=== PATIENT | female | born 1975 | race Caucasian/White ===

== ENCOUNTER 2024-10-18 09:32 | Emergency (ER) | payer OTHER, SELFPAY ==
--- NOTE | ~2024-10-18 | XR_ITS ---
Clinical Indication: Cough PA and lateral views of the chest: Comparison: None Findings: The lungs are clear, without evidence of focal consolidation or pleural effusion. Cardiome diastinal silhouette is within normal limits. Calcified left suprahilar lymph node present. Bones and soft tissues are unremarkable. Impression: No acute abnormality. Reviewed, dictated and finalized at [facility]. ORATE LEGAL ASSISTANT Impression: No acute abnormality.
[2024-10-18 10:19] VITALS: BP 135/76; PULSE 93; RESP 20; TEMP 36; O2SAT 100
--- NOTE | 2024-10-18 11:16 | ED.GENADULT ---
HPI - General Adult General Chief complaint: Upper Respiratory Infection Stated complaint: Cough/fever Source: patient Mode of arrival: ambulatory Limitations: no limitations History of Present Illness HPI narrative: Patient presents for evaluation of sick symptoms. She developed a fever one week ago. A cough developed shortly thereafter, which worsened two days ago. She reports pleuritic chest pain, sore throat and SOB. No nausea, vomiting, diarrhea. Her fiance recently was sick. She quit smoking two weeks ago. She wears an Apple watch and states that she has noticed at times her heart rate is in the 180s. She was recently diagnosed with Graves disease and was started on atenolol and methimazole. Related Data Home Medications ?Medication ?Instructions ?Recorded ?Confirmed ?Last Taken ?Type atenolol 25 mg tablet mg 10/18/24 Unknown History methimazole 10 mg tablet mg 10/18/24 Unknown History sertraline 100 mg tablet mg 10/18/24 Unknown History Allergies Allergy/AdvReac Type Severity Reaction Status Date / Time shellfish derived Allergy Severe Anaphylaxis Verified 10/18/24 10:54 Penicillins Allergy Mild Rash Verified 10/18/24 10:54 Review of Systems Review of Systems: CONSTITUTIONAL:Reports intermittent fever. Denies chills, or sweats. EYES: Denies visual changes, redness, or discharge. ENT: Denies rhinorrhea, congestion, sore throat, or otalgia. CARDIOVASCULAR: Reports pleuritic chest pain. Denies chest pain otherwise. Reports intermittent tachycardia. Denies palpitations or edema. RESPIRATORY: Reports cough and SOB GASTROINTESTINAL: Denies abdominal pain, nausea, vomiting, or diarrhea. GENITOURINARY: Denies dysuria or hematuria. SKIN: Denies rash or itching. MUSCULOSKELETAL: Denies back pain, joint pain, or myalgia. NEUROLOGIC: Denies headache, numbness, dizziness, or weakness. PSYCHIATRIC: Denies anxiety or depression. [facility] Past Medical History Medical History Graves disease Surgical History Surgical History No pertinent past surgical history Family History Family History Mother Family history of rheumatoid arthritis Family history of malignant neoplasm of breast in first degree relative Father Malignant neoplasm of prostate Family history of coronary artery disease Other Family history of arthritis Family history of cardiovascular disease Hypertension Social History Social History Smoking status: Former smoker Tobacco type: cigarettes Alcohol intake: current Additional living arrangements comments: lives with fiance Gender identity (if verbalized by the patient): Female Sexual Orientation (if Verbalized by the Patient): Straight or Heterosexual Spiritual care concerns: No Exam Narrative: GENERAL: Well-appearing, well-nourished, and in no acute distress. HEAD: Normocephalic, atraumatic. EYES: PERRLA and EOMI. ENT: Nares clear, no rhinorrhea or epistaxis. Mucous membranes moist. Oropharynx without tonsillar hypertrophy exudate or other lesions. Bilateral TMs pearly means nonbulging NECK: Supple. No adenopathy or masses. No carotid bruits or JVD CHEST: Cough present on exam. Clear to auscultation. No respiratory distress. No wheezes rales or rhonchi HEART: Regular rate and rhythm. No murmur heard. Normal peripheral pulses. ABDOMEN: Soft, nontender, nondistended, normal active bowel sounds. EXTREMITIES: Normal range of motion. No edema. SKIN: Warm, dry, no rash. NEURO: No focal deficits. Alert and oriented x3. PSYCH: Normal mood and affect. Course Course Emergency Course: This is a 48-year-old female who presented for evaluation of sick symptoms. Influenza and COVID were negative. Declined strep test. Chest x-ray normal. Exam is consistent with viral URI. Recommend OTC dextromethorphan. She is not wheezing to necessitate steroids. I am also concerned that this may provoke her heart rate to increase. She showed me that her phone notified that her heart rate yesterday was in the 180's and she was in a fib. Her heart rate today is normal and is regular. I did advise that she call her PCP tomorrow to inform them of heart rate and rhythm. She should go to the ER if her heart rate is elevated or she goes into a fib. She is agreeable with plan of care. Level of Care: Express Care Visit Vital Signs Vital signs: Vital Signs Temperature 36.0 C L 10/18/24 10:19 Pulse Rate 93 10/18/24 10:19 Respiratory Rate 20 10/18/24 10:19 Blood Pressure 135/76 10/18/24 10:19 Pulse Oximetry 100 10/18/24 10:19 Oxygen Delivery Room Air 10/18/24 10:19 Temperature 36.0 C L 10/18/24 10:19 Pulse Rate 93 10/18/24 10:19 Respiratory Rate 20 10/18/24 10:19 Blood Pressure 135/76 10/18/24 10:19 Pulse Oximetry 100 10/18/24 10:19 Oxygen Delivery Room Air 10/18/24 10:19 Medical Decision Making Vital Signs Vital Signs: Vital Signs Temperature 36.0 C L 10/18/24 10:19 Pulse Rate 93 10/18/24 10:19 Respiratory Rate 20 10/18/24 10:19 Blood Pressure 135/76 10/18/24 10:19 Pulse Oximetry 100 10/18/24 10:19 Oxygen Delivery Room Air 10/18/24 10:19 Temperature 36.0 C L 10/18/24 10:19 Pulse Rate 93 10/18/24 10:19 Respiratory Rate 20 10/18/24 10:19 Blood Pressure 135/76 10/18/24 10:19 Pulse Oximetry 100 10/18/24 10:19 Oxygen Delivery Room Air 10/18/24 10:19 Lab Data Labs: Lab Results 10/18/24 Range/Units 11:46 POC Influenza A Ag Negative (Negative) POC Influenza B Ag Negative (Negative) POC SARS CoV-2 Ag Negative (Negative) Imaging Data Radiologist's impression: Clinical Indication: Cough PA and lateral views of the chest: Comparison: None Findings: The lungs are clear, without evidence of focal consolidation or pleural effusion. Cardiomediastinal silhouette is within normal limits. Calcified left suprahilar lymph node present. Bones and soft tissues are unremarkable. Impression: No acute abnormality. Discharge Plan Discharge Clinical Impression: Upper respiratory infection, viral Patient Disposition: Home, Self-Care Condition: Stable Instructions: Antibiotic Form, Upper Respiratory Infection (ED) Additional Instructions: PLEASE SPEAK WITH YOUR PRIMARY CARE PROVIDER TOMORROW REGARDING THE ELEVATION OF YOUR HEART RATE AND NOTIFICATION THAT YOU HAVE BEEN IN A-FIB PLEASE DO NOT MISS ANY DOSES OF ATENOLOL IF YOUR HEART RATE IS ABOVE 125 BEATS PER MINUTE OR YOUR GOING INTO ATRIAL FIBRILLATION, PLEASE GO TO THE EMERGENCY DEPARTMENT. DELSYM (DEXTROMETHORPHAN) SHOULD HELP WITH YOUR COUGH PLEASE DO NOT SMOKE Patient Language: South African Prescriptions: No Action atenolol 25 mg tablet sertraline 100 mg tablet methimazole 10 mg tablet Follow-up/Referrals: Anne,VAL Reid [Primary Care Provider] - Time of Disposition: 11:48
[2024-10-18 11:47] LABS: EDCOVIDSCREEN Negative (Negative); EDINFLUASCREEN Negative (Negative); EDINFLUBSCREEN Negative (Negative)
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
--- OUTSIDE RECORDS SUMMARY | 2024-10-22 20:33 | XMS_ITS | Encounter Summary ---
Author Organization [facility] Address [address] [place] [address]. [place], [place] [id number] [place] [address] Care Team Providers Care Tape Edge Machine Operator Name Role Phone Josefa Rodríguez PA-C Primary Care Provider [phone] Encounter Details Date Type Department Care Team (Late st Contact Info) Description 01/08/2024 Miyaobabei Message Enc [facility] Family & Internal Medicine [address] [address] [facility] medication/follow up appointment Social History Tobacco Use Types Packs/Day Years Used Date Smoking Tobacco: Every Day Cigarettes 0.3 30 Started: 1994 Passive Smoke Exposure: Current Smokeless Tobacco: Never Comments:trying to cut back Alcohol Use Standard [...] Sex Assigned at Female 12/15/2018 11:48 AM LUMBER BUYER Legal Sex Female 8:12 PM CDT Gender Identity Female 12/15/2018 11:48 AM LUMBER BUYER Sexual Orientation Straight 12/15/2018 11 :21 AM LUMBER BUYER 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 Not on file Not on file documented as of this encounter Plan of Treatment Not on file documented as of this encounter Visit Diagnoses Not on filedocumented in this encounter Additional Health Concerns Assessment Noted Time PHQ-9 Depression Total Score: 15 023 10:20 AM LUMBER BUYER documented as of this encounter Care Teams Tape Edge Machine Operator Relationship Specialty Start Date End Date Josefa Rodríguez PA-C [address] [place] [address] PCP - General PHYSICIAN SPORTS DIRECTOR 08/12/23 documented as of this encounter
--- OUTSIDE RECORDS SUMMARY | 2024-10-22 20:33 | XMS_ITS | Clinical Summary ---
Author Organization [facility] Address [facility] [place] [address] [place] [address] Care Team Providers Care Cold Strip Roller Name Role Phone Josefa Rodríguez PA-C Primary Care Provider [phone] Allergies Active Allergy Reactions Criticality Noted Date Comments Penicillins Anaphylaxis High 10/20/2012 Can take Amoxicillin Shellfish Allergy Vomiting 08/27/1982 Medications acidiphilus probiotic tablet Take 2 tablets by mouth daily. 7 Active multi vitamin/mineral s tablet Take 1 tablet by mouth 2 (two) times daily. Active MAGNESIUM ASPARTATE OR Take 400 mg by mouth daily. Active ACYCLOVIR 400 MG tabletIndicatio ns:Herpes simplex TAKE 1 TABLET BY MOUTH DAILY 150 tablet 2 Active HYDROcodone-angel taminophen (NORCO) 5-325 MG tabletIndicatio ns:Acute Pain < 7 Day Supply Take 1 tablet by mouth every 4 (four) hours as needed for Pain. Indications: Acute Pain < 7 Day Supply 20 tablet 4 Active Additional Information Patient not taking.Reported on 06/18/2024 tiZANidine (ZANAFLEX) 4 MG tabletIndicatio ns:Acute right-sided low back pain with right-sided sciatica Take 1 tablet (4 mg total) by mouth every 8 (eight) hours as needed. 30 tablet 1 4 Active HYDROcodone-angel taminophen (NORCO) 5-325 MG tabletIndicatio ns:Acute Pain < 7 Day Supply Take 1 tablet by mouth 2 (two) times daily as needed for Pain. Indications: Acute Pain < 7 Day Supply 14 tablet 4 Active Additional Information Patient not taking.Reported on 06/18/2024 gabapentin (NEURONTIN) 100 MG capsuleIndicati ons:Acute right-sided low back pain with right-sided sciatica Take 1 capsule nightly for 3 to 5 days until tolerated and then increase to twice daily 60 capsule 1 4 Active Additional Information Patient not taking.Reported on 06/18/2024 diclofenac EC (VOLTAREN) 75 MG tabletIndicatio ns:Acute right-sided low back pain with right-sided sciatica TAKE 1 TABLET (75 MG TOTAL) BY MOUTH TWICE A DAY WITH FOOD 60 tablet 1 4 Active sertraline (ZOLOFT) 100 MG tabletIndicatio ns:Anxiety and depression TAKE 1 AND 1/2 TABLETS BY MOUTH DAILY 45 tablet 1 4 Active Active Problems Problem Noted Date Diagnosed Date Palpitations 08/22/2022 Hyperthyroidism 08/27/2020 Anxiety and depression 07/30/2018 Adjustment disorder with anxiety 02/04/2015 Encounters Date Type Department Care Team Description 10/18/2024 Scan Tricycle INFO SRVCS Scanned, [facility] Image (SCAN) 07/23/2024 Telephone [facility] Family & Internal Medicine [facility] [address] [place] [address] Josefa Rodríguez, PAMarceloC Information from Last 3 Months Immunizations Name Administration Dates Next Due Fluzone 6 Months+ Quad (0.5 mL Prefilled Syringe ) 09/04/2021 Td 07/02/2008 Tdap (Generic) 04/29/2012 Family History Medical History Relation Comments Anxiety Father Cancer Father prostate Heart Father Cancer Mother breast Relation Status Comments Father Alive Mother Social History Tobacco Use Types Packs/Day Years Used Date Smoking Tobacco: Every Day Cigarettes 0.3 30 Started: 1994 Passive Smoke Exposure: Current Smokeless Tobacco: Never Tobacco Cessation:Ready to Q uit: Not Asked; Counseling Given: Not Answered Comments:trying to cut back Alcohol Use Standard [...] Date Recorded Patient Health Questionnaire-2 Score 0 06/18/2024 Education Answer Date Recorded What is the highest level of school you have completed or the highest degree you have received? Some college, no degree 12/15/2018 Comments No Sex and Gender Information Value Date Recorded Sex Assigned at Female 12/15/2018 11:48 AM CHURCH ORGANIST Legal Sex Female 8:12 PM CDT Gender Identity Female 12/15/2018 11:48 AM CHURCH ORGANIST Sexual Orientation Straight 12/15/2018 11 :21 AM CHURCH ORGANIST Occupation Industry Job Start Date Job End Date [employer] Not on file Not on file Not on file Last Filed Vital Signs Vital Sign Reading Time Taken Comments Blood Pressure 154/82 06/18/2024 10:15 AM CDT Pulse 101 06/18/2024 10:15 AM CDT Temperature 36.3 ??C (97.3 ??F) 06/18/2024 10:15 AM C DT Respiratory Rate 16 06/18/2024 10:15 AM CDT Oxygen Saturation 99% 06/18/2024 10:15 AM CDT Inhaled Oxygen Concentration - - Weight 64 kg (141 lb) 06/18/2024 10:15 AM CDT Height 167.6 cm (5' 6 ) 06/18/2024 10:15 AM CDT Body Mass Index 22.76 06/18/2024 10:15 AM CDT Plan of Treatment Health Maintenance Due Date Last Done Comments Cervical Cancer Screening Pa p Smear (Age 30 to 64) Every 3 Years 1977 Hepatitis C 1995 Hepatitis B Vaccines (1 of 3 - 19+ 3-dose series) 1996 Cervical Cancer Screening Pa p with HPV Testing (Age 30 to 64) Every 5 Years 2007 Cervical Cancer Screening with HPV 2007 Colorectal Cancer Screening Colonoscopy (10 Years) 07/18/2014 07/18/2004 DTaP, Tdap and Td Vaccines ( 2 - Td or Tdap) 04/29/2022 04/29/2012, 07/02/2008 COVID-19 Vaccine (2 - 2023-2 5 season) 2024 04/06/2021 Influenza Adult (#1) 2024 09/04/2021 Annual Physical 08/28/2024 08/28/2023, 09/04/2021 Mammogram Screening 08/28/2024 08/28/2022 Pneumococcal Vaccine: Pediatrics (0 to 5 Years) and At-Risk Patients (6 to 64 Years) (1 of 2 - PCV) 12/07/2024 Postponed from (Per Provider Recommendation) Meningococcal Vaccine Aged Out No josie jermaine eligible based on patient's age to complete this topic RSV Immunizations Under 20 Months Aged Out No longer eligible b ased on patient's age to complete this topic Procedures Procedure Name Priority Date/Time Associated Diagnosis Comments IMAGE GENERIC 10/18/2024 MG SCREENING W MICAH SOHAM DIGI Routine 08/28/2022 2:47 PM CDT Breast cancer screening by mammogram COLONOSCOPY Routine 07/18/2004 12:00 AM CDT from Last 3 Months or Most Recently Relevant to Health Maintenance Results * IMAGE GENERIC (10/18/2024) Anatomical Region Laterality Modality Other 10/18/2024 us Doc [facility] Scanned SCANNING Final Resu lt * MG SCREENING W MICAH SOHAM DIGI (08/28/2022 2:47 PM CDT) Anatomical Region Laterality Modality Breast Bilateral Mammography 08/28/2022 2:33 PM CDT Impressions 08/28/2022 2:40 PM CDT IMPRESSION: 1. No mammographic evidence of malignancy. 2. BI-RADS Category 1 - negative. MQSA BI-RADS Categories: Category 0 - needs additional imaging evaluation. Category 1 - negative. Category 2 - benign findings. Category 3 - probably benign findings, but short interval follow-up ?is recommended. Category 4 - suspicious abnormality and biopsy should be considered ?though the lesion may well be benign. Category 5 - highly suggestive of malignancy and appropriate action ?should be taken. ?? Category 6 - known biopsy-proven malignancy A) ??A negative report should not delay a biopsy if a dominant or ?clinically suspicious mass is present. B) ??Adenosis and dense breasts may obscure an underlying neoplasm. C) ??Study interpreted with computer aided detection. Ordered By: TRENTON TREIVZO Interpreted By: Kenneth Bruner, 08/28/2022 2:33 PM Narrative 08/28/2022 2:40 PM CDT IMAGING STUDIES: Bilateral screening mammograms with computer-aided detection with 2-D and 3-D imaging. Tomosynthesis. DATE: 08/28/2022 2:33 PM HISTORY: Screening ?? . ??Mother diagnosed with breast carcinoma at undisclosed age. COMPARISON: ??Baseline exam TISSUE TYPE: There are scattered areas of fibroglandular density. FINDINGS: 1. ??Bilateral screening mammograms with computer detection with ??2-D and 3-D imaging. Tomosynthesis. ??Mild to moderate scattered ??fibroglandular tissue pattern is present. 2. ??No malignant microcalfcifications, dominant masses, or architectural distortion. 3. No skin thickening or nipple retraction. ??Axillary regions are within normal limits. us Trenton Trevizo PA MAMMO Final Result * Colonoscopy (07/18/2004 12:00 AM CDT) 07/18/2004 07/18/2004 Narrative [facility] TO EPIC CONVERSION - 07/18/2004 12:00 AM CDT Documented hx of procedure Procedure Note Sai Almeida MD - 09/07/2018 Documented hx of procedure us Sai Bustillos Md, MD GI PROCEDURE ORDERABLES Final Result [facility] TO EPIC CONVERSION from Last 3 Months or Most Recently Relevant to Health Maintenance Insurance [facility] Care Teams Cold Strip Roller Relationship Specialty Start Date End Date Josefa Rodríguez PA-C [address] [place] [address] PCP - General PHYSICIAN EVP [place] 08/12/23
--- OUTSIDE RECORDS SUMMARY | 2024-10-22 20:33 | XMS_ITS | Encounter Summary ---
Author Organization [facility] Address [address] [place] [address]. [place], [place] [id number] [place] [address] Care Team Providers Care Key Account Manager Name Role Phone Josefa Rodríguez PA-C Primary Care Provider Encounter Details Date Type Department Care Team (Latest Contact Info) Description 06/18/2024 Travel Social History Tobacco Use Types Packs/Day Years [...] Sex Assigned at Female 12/15/2018 11:48 AM COUNSELOR DORMITORY Legal Sex Female 8:12 PM CDT Gender Identity Female 12/15/2018 11:48 AM COUNSELOR DORMITORY Sexual Orientation Straight 12/15/2018 11 :21 AM COUNSELOR DORMITORY Occupation Industry Job Start Date Job End Date [employer] Not on file Not on file Not on file documented as of this encounter Plan of Treatment Not on file documented as of this encounter Visit Diagnoses Not on filedocumented in this encounter Additional Health Concerns Assessment Noted Time PHQ-9 Depression Total Score: 15 11/26/ 023 10:20 AM COUNSELOR DORMITORY documented as of this encounter Care Teams Key Account Manager Relationship Specialty Start Date End Date Josefa Rodríguez PA-C [address] [place] [address] PCP - General PHYSICIAN BAND PRESSER 08/12/23 documented as of this encounter
--- OUTSIDE RECORDS SUMMARY | 2024-10-22 20:33 | XMS_ITS | Encounter Summary ---
Author Organization [facility] Address [address] [place] [address]. [place], [place] [id number] [place] [address] Care Team Providers Care Starch Factory Laborer Name Role Phone Josefa Rodríguez PA-C Primary Care Provider [phone] Encounter Details Date Type Department Care Team (Late st Contact Info) Description 12/03/2023 [email or web address] Message Enc [facility] Family & Internal Medicine [address] [address] [facility] Provider medication Social History Tobacco Use Types Packs/Day Years [...] Sex Assigned at Female 12/15/2018 11:48 AM SCHOOL PLANT CONSULTANT Legal Sex Female 8:12 PM CDT Gender Identity Female 12/15/2018 11:48 AM SCHOOL PLANT CONSULTANT Sexual Orientation Straight 12/15/2018 11 :21 AM SCHOOL PLANT CONSULTANT 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 Not on file Not on file documented as of this encounter Plan of Treatment Not on file documented as of this encounter Visit Diagnoses Not on filedocumented in this encounter Additional Health Concerns Assessment Noted Time PHQ-9 Depression Total Score: 15 11/26/ 023 10:20 AM SCHOOL PLANT CONSULTANT documented as of this encounter Care Teams Starch Factory Laborer Relationship Specialty Start Date End Date Josefa Rodríguez PA-C [address] [place] [address] PCP - General PHYSICIAN FINANCIAL SALES CONSULTANT 08/12/23 documented as of this encounter
--- OUTSIDE RECORDS SUMMARY | 2024-10-22 20:33 | XMS_ITS | Encounter Summary ---
Author Organization [facility] Address [address] [place] [address]. [place], [place] [id number] [place] [address] Care Team Providers Care Gaming Cage Cashier Name Role Phone Josefa Rodríguez PA-C Primary Care Provider [phone] Reason for Visit * Reason Onset Date Comments Information 07/23/2024 Encounter Details Date Type Department Care Team (Late st Contact Info) Description 07/23/2024 Telephone [facility] Family & Internal Medicine [facility] [id number] [place] [phone] Josefa Rodríguez PA-C [id number] [address] Information Social History Tobacco Use Types Packs/Day Years [...] Sex Assigned at Female 12/15/2018 11:48 AM CATALOGUE MAKER Legal Sex Female 8:12 PM CDT Gender Identity Female 12/15/2018 11:48 AM CATALOGUE MAKER Sexual Orientation Straight 12/15/2018 11 :21 AM CATALOGUE MAKER 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 Not on file Not on file documented as of this encounter Progress Notes * Felicia Badillo RN - 07/23/2024 3:02 PM CDT Attempted to call the pt to inform her that Josefa recommends taht the pt be seen in ER. The pt's mailbox was full was unable to leave VM. * Josefa Rodríguez PA-C - 07/23/2024 1:02 PM CDT I absolutely recommend the emergency room. I am worried she may have an electrolyte imbalance, thyroid issue that could result in SVT, atrial fibrillation, or other concerning cardiac conditions thatneed treatment emergently. Thank you! * Alicia Torre - 07/23/2024 8:40 AM CDT Frances calling this morning states she was at work this morning went to lunch room to make some pizza. Heart rate jumped to 153, she went outside to sit and calling office asking what to do. Frances reports some shortness of breath, dizziness after talking she said heart rate is going down to 110. Frances also reports she does wear a fit bit and states in the middle of the night she has had recordingsof heart rate 176. Informed her that she should go to ER as we had no openings, explained that ER can run test at the time of flare up and can find out what is going on. Frances understood felt more comfortable after hearing this. Told her I would let Josefa know her concerns. documented in this encounter Plan of Treatment Not on file documented as of this encounter Visit Diagnoses Not on filedocumented in this encounter Additional Health Concerns Assessment Noted Time PHQ-9 Depression Total Score: 15 11/26/ 023 10:20 AM CATALOGUE MAKER documented as of this encounter Care Teams Gaming Cage Cashier Relationship Specialty Start Date End Date Josefa Rodríguez PA-C [address] [place] [address] PCP - General PHYSICIAN PUBLICITY DIRECTOR 08/12/23 documented as of this encounter
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
--- OUTSIDE RECORDS SUMMARY | 2024-10-22 20:33 | XMS_ITS | Encounter Summary ---
Author Organization [facility] Address [address] [place] [address]. [place], [place] [address] [place] [address] Care Team Providers Care Assistant Director Of Security Name Role Phone Josefa Rodríguez PA-C Primary Care Provider Encounter Details Date Type Department Care Team (Latest Contact Info) Description 11/13/2023 Travel Social History Tobacco Use Types Packs/Day [...] Sex Assigned at Female 12/15/2018 11:48 AM RESIDENCY PROGRAM COORDINATOR Legal Sex Female 8:12 PM CDT Gender Identity Female 12/15/2018 11:48 AM RESIDENCY PROGRAM COORDINATOR Sexual Orientation Straight 12/15/2018 11 :21 AM RESIDENCY PROGRAM COORDINATOR Occupation Industry Job Start Date Job End Date [employer] Not on file Not on file Not on file documented as of this encounter Plan of Treatment Not on file documented as of this encounter Visit Diagnoses Not on filedocumented in this encounter Additional Health Concerns Assessment Noted Time PHQ-9 Depression Total Score: 15 11/26/ 023 10:20 AM RESIDENCY PROGRAM COORDINATOR documented as of this encounter Care Teams Assistant Director Of Security Relationship Specialty Start Date End Date Josefa Rodríguez PA-C [address] [place] [address] PCP - General PHYSICIAN BURLAP BAG SEWER 08/12/23 documented as of this encounter
--- OUTSIDE RECORDS SUMMARY | 2024-10-22 20:33 | XMS_ITS | Encounter Summary ---
Author Organization [facility] Address [address] [place] [address]. [place], [place] [address] [place] [address] Care Team Providers Care Billet Heater Operator Name Role Phone Josefa Rodríguez PA-C Primary Care Provider [phone] Encounter Details Date Type Department Care Team (Latest Contact Info) Description 06/18/2024 11:12 AM CDT - 06/18/2024 11:59 PM T Hospital Encounter [facility] [address] [place] [address] Josefa Rodríguez PA-C [address] [place] [address] Carolyn Cordero, TOMAS [address] [place] [address] Discharge Disposition: Home or Self Care (Routine Discharge) Social History Tobacco Use Types Packs/Day Years [...] Sex Assigned at Female 12/15/2018 11:48 AM SPORTS INFORMATION DIRECTOR Legal Sex Female 8:12 PM CDT Gender Identity Female 12/15/2018 11:48 AM SPORTS INFORMATION DIRECTOR Sexual Orientation Straight 12/15/2018 11 :21 AM SPORTS INFORMATION DIRECTOR 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 Not on file Not on file documented as of this encounter Medications at Time of Discharge acidiphilus probiotic tablet Take 2 tablets by mouth daily. 07/09/2017 ACYCLOVIR 400 MG tabletIndication s:Herpes simplex TAKE 1 TABLET BY MOUTH DAILY 150 tablet 01/09/2022 gabapentin (NEURONTIN) 100 MG capsuleIndicatio ns:Acute right-sided low back pain with right-sided sciatica Take 1 capsule nightly for 3 to 5 days until tolerated and then increase to twice daily 60 capsule 1 11/21/2023 HYDROcodone-acet aminophen (NORCO) 5-325 MG tabletIndication s:Acute Pain < 7 Day Supply Take 1 tablet by mouth every 4 (four) hours as needed for Pain. Indications: Acute Pain < 7 Day Supply 20 tablet 11/07/2023 HYDROcodone-acet aminophen (NORCO) 5-325 MG tabletIndication s:Acute Pain < 7 Day Supply Take 1 tablet by mouth 2 (two) times daily as needed for Pain. Indications: Acute Pain < 7 Day Supply 14 tablet 11/15/2023 MAGNESIUM ASPARTATE OR Take 400 mg by mouth daily. multi vitamin/minerals tablet Take 1 tablet by mouth 2 (two) times daily. tiZANidine (ZANAFLEX) 4 MG tabletIndication s:Acute right-sided low back pain with right-sided sciatica Take 1 tablet (4 mg total) by mouth every 8 (eight) hours as needed. 30 tablet 1 11/13/2023 diclofenac EC (VOLTAREN) 75 MG tabletIndication s:Acute right-sided low back pain with right-sided sciatica Take 1 tablet (75 mg total) by mouth 2 (two) times daily. Take with food. 60 tablet 1 11/13/2023 4 ibuprofen (MOTRIN) 800 MG tabletIndication s:Left foot pain,Acute left ankle pain Take 1 tablet (800 mg total) by mouth every 8 (eight) hours as needed for Pain. 40 tablet 06/18/2024 4 sertraline (ZOLOFT) 100 MG tabletIndication s:Anxiety and depression take 1 and 1/2 tablets by mouth daily 45 tablet 1 06/18/2024 4 documented as of this encounter Plan of Treatment Not on file documented as of this encounter Procedures Procedure Name Priority Date/Time Associated Diagnosis Comments XR FOOT LT 3V Routine 06/18/2024 11:25 AM CDT Left foot pain XR ANKLE LT M3V Routine 06/18/2024 11:25 AM CDT Acute left ankle pain documented in this encounter Results * XR ANKLE LT [...] MD, 06/18/2024 4:26 PM us Carolyn Cordero ASSEMBLER TRUCK TRAILER GENERAL IMAGING Final Resu lt * XR [...] MD, 06/18/2024 4:26 PM us Carolyn Cordero ASSEMBLER TRUCK TRAILER GENERAL IMAGING Final Resu lt documented in this encounter Visit Diagnoses Diagnosis Left foot pain Pain in limb Acute left ankle pain documented in this encounter Additional Health Concerns Assessment Noted Time PHQ-9 Depression Total Score: 15 023 10:20 AM SPORTS INFORMATION DIRECTOR documented as of this encounter Care Teams Billet Heater Operator Relationship Specialty Start Date End Date Josefa Rodríguez PA-C [address] [place] [address] PCP - General PHYSICIAN AUTOMOTIVE FINANCE MANAGER 08/12/23 documented as of this encounter
--- OUTSIDE RECORDS SUMMARY | 2024-10-22 20:33 | XMS_ITS | Encounter Summary ---
Author Organization [facility] Address [address] [place] [address]. [place], [place] [address] [place] [address] Care Team Providers Care Manager Of Internal Audit Name Role Phone Josefa Rodríguez PA-C Primary Care Provider Encounter Details Date Type Department Care Team (Late st Contact Info) Description 11/14/2023 Conzoom Message Enc [facility] Family & Internal Medicine [facility] [address] [place] [address] Josefa Rodríguez PA-C [id number] [place] [address] Medication refill or different pain medication Social History Tobacco Use Types Packs/Day [...] Sex Assigned at Female 12/15/2018 11:48 AM DIRECTOR EAST COAST SALES Legal Sex Female 8:12 PM CDT Gender Identity Female 12/15/2018 11:48 AM DIRECTOR EAST COAST SALES Sexual Orientation Straight 12/15/2018 11 :21 AM DIRECTOR EAST COAST SALES Occupation Industry Job Start Date Job End Date [facility] [employer] Not on file Not on file Not on file documented as of this encounter Progress Notes * Christy Reynaga RN - 12/12/2023 2:57 PM CST Letter sent to patient to call office. [employer]OR [employer] * Zarina Dougherty MA - 12/09/2023 1:25 PM CST 12/09/23 lmtcb on cj vm. [employer] * Zarina Dougherty MA - 12/03/2023 11:27 AM CST 12/03 lmtcb on vm. Will reach out also on my chart. [employer] * Marian Lynn RN - 11/29/2023 12:34 PM CST LMTCB [employer] * Josefa Rodríguez PA-C - 11/21/2023 2:00 PM CST I sent in gabapentin 100 mg nightly to be increased to twice daily in a few days if tolerated. Please let patient know this dose can be increased if needed. Thank you! [employer] * Marian Lynn RN - 11/21/2023 9:57 AM CST Pt would like gabapentin. Please send script [employer] * Marian Lynn RN - 11/18/2023 10:53 AM CST lmtcb [employer] * Josefa Rodríguez PA-C - 11/15/2023 9:53 AM CST I sent in a short course of the hydrocodone to be taken twice daily as needed. Please see if she would be interested in trying prednisone as this will help decrease inflammation. Gabapentin would also significantly help alleviate her pain. Please find out if she would be agreeable to either the prednisone or the gabapentin. Recommend continue to follow-up with physical therapy. If any bowel or bladder dysfunction develop recommend report to the ED. [employer] * Christy Reynaga RN - 11/15/2023 9:33 AM CST Please advise [employer] documented in this encounter Plan of Treatment Not on file documented as of this encounter Visit Diagnoses Diagnosis Acute right-sided low back pain with right-sided sciatica- Primary documented in this encounter Additional Health Concerns Assessment Noted Time PHQ-9 Depression Total Score: 15 11/26/2 023 10:20 AM DIRECTOR EAST COAST SALES documented as of this encounter Care Teams Manager Of Internal Audit Relationship Specialty Start Date End Date Josefa Rodríguez PA-C [address] [facility] [address] [place] [address] PCP - General PHYSICIAN CIVIL ENGINEERING DRAFTER 08/12/23 documented as of this encounter
--- OUTSIDE RECORDS SUMMARY | 2024-10-22 20:33 | XMS_ITS | Encounter Summary ---
Author Organization [facility] Address [address] [place] [address]. [place], [place] [id number] [place] [address] Care Team Providers Care Engineering Manager Name Role Phone Josefa Rodríguez PA-C Primary Care Provider [phone] Reason for Visit * Reason Onset Date Comments Referral 11/14/2023 Encounter Details Date Type Department Care Team (Late st Contact Info) Description 11/14/2023 Telephone [facility] [address] [place], [place] [phone] Deysi Thurston, PT [address] [place], [place] [phone] Referral Social History Tobacco Use Types Packs/Day Years [...] Sex Assigned at Female 12/15/2018 11:48 AM FOUNDRY TENDER Legal Sex Female 8:12 PM CDT Gender Identity Female 12/15/2018 11:48 AM FOUNDRY TENDER Sexual Orientation Straight 12/15/2018 11 :21 AM FOUNDRY TENDER 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 Not on file Not on file documented as of this encounter Progress Notes * Grace Bridges - 11/14/2023 9:25 AM CST We received a referral for PT but [facility] is not contacted with [facility]. Left vm with patient that we are not contracted and unable to treat her. DRY TENDER documented in this encounter Plan of Treatment Not on file documented as of this encounter Visit Diagnoses Not on filedocumented in this encounter Additional Health Concerns Assessment Noted Time PHQ-9 Depression Total Score: 15 11/26/2 023 10:20 AM FOUNDRY TENDER documented as of this encounter Care Teams Engineering Manager Relationship Specialty Start Date End Date Josefa Rodríguez PA-C [address] [facility] [address] [place] [address] PCP - General PHYSICIAN SENIOR LIVING SALES COUNSELOR 08/12/23 documented as of this encounter
--- OUTSIDE RECORDS SUMMARY | 2024-10-22 20:34 | XMS_ITS | Encounter Summary ---
Author Organization [facility] Address [address] [place] [address]. [place], [place] [id number] [place] [address] Care Team Providers Care Fleet Salesperson Name Role Phone Trenton Trevizo Primary Care Provider Reason for Visit * Reason Comments Earache Right earache. Onset - couple wk/worse lately Encounter Details Date Type Department Care Team (Late st Contact Info) Description 03/19/2023 1:40 PM CDT Office Visit [facility] Family & Internal Medicine [facility] [id number] [place] [phone] [place] [id number] [place] [address] Earache (Right earache. Onset- couple wk/worse lately) Social History Tobacco Use Types Packs/Day Years [...] Sex Assigned at Female 12/15/2018 11:48 AM SUPERVISOR BEAM DEPARTMENT Legal Sex Female 8:12 PM CDT Gender Identity Female 12/15/2018 11:48 AM SUPERVISOR BEAM DEPARTMENT Sexual Orientation Straight 12/15/2018 11 :21 AM SUPERVISOR BEAM DEPARTMENT Occupation Industry Job Start Date Job End Date [facility]ly [employer] Not on file Not on file Not on file COVID-19 Exposure Response Date Recorded In the last 10 days, have yo u been in contact with someone who was confirmed or suspected to have Coronavirus/COVID-19? No / Unsure 03/19/2023 1:21 PM CDT documented as of this encounter Last Filed Vital Signs Vital Sign Reading Time Taken Comments Blood Pressure 115/72 03/19/2023 1:29 PM CDT Pulse 79 03/19/2023 1:29 PM CDT Temperature 36.4 ??C (97.5 ??F) 03/19/2023 1:29 PM CD T Respiratory Rate 17 03/19/2023 1:29 PM CDT Oxygen Saturation 98% 03/19/2023 1:29 PM CDT Inhaled Oxygen Concentration - - Weight 69.5 kg (153 lb 3.2 oz) 03/19/2023 1:29 P M CDT Height 167.6 cm (5' 6 ) 03/19/2023 1:29 PM CDT Body Mass Index 24.73 03/19/2023 1:29 PM CDT documented in this encounter Patient Instructions * Attachments The following attachments cannot be sent through Care Everywhere. * Serous Otitis Media Discharge Instructions (Filipino) documented in this encounter Progress Notes * VAL Gil - 03/19/2023 1:40 PM CDTAddended by: TRENTON TREVIZO on: 03/19/2023 09:45 PM Modules accepted: Orders * VAL Gil - 03/19/2023 1:40 PM CDT Images from the original note were not included. _ Reason for Visit: Earache (Right earache. Onset- couple wk/worse lately) History of Present Illness: MERCEDES Maguire is a 47-year-old female here for patient or evaluation through the walk-in clinic for symptoms of upper respiratory infection to include nasal congestion, sore throat, and headache. Patient denies symptoms of visual disturbance or vomiting. Patient has noticed a fever. Patient has a not had cough with out wheezing. Patient denies shortness of breath. Patient has not had loose stools. Patient has been symptomatic off and on and building days and is notimproving with symptoms. Endocrinology referral has been initiated ROS: Review of Systems Feeling ill. Denies vision or hearing problems. Denies dysphagia, heartburn or indigestion. No dyspnea or chest pain on exertion. Positive nausea, NOabdominal pain, change in bowel habits, black or bloody stools. No urinary tract symptoms. No muscle or joint aches or pains. No foot or leg edema. Nonumbness, tingling,or weakness. No anxiety or depressive symptoms, Sleeping well. No significant ivan ght gain or loss. Positive fatigue. Medications: Outpatient Medications Marked as Taking for the 03/19/23 encounter (Office Visit) with VAL Gil Medication Sig Dispense Refill acidiphilus probiotic tablet Take 2 tablets by mouth daily. ACYCLOVIR 400 MG tablet TAKE 1 TABLET BY MOUTH DAILY 150 tablet 0 azithromycin (ZITHROMAX Z-NAVID) 250 MG tablet Take 2 tablets by mouth on day one then 1 daily for four days. 6 tablet 0 MAGNESIUM ASPARTATE OR Take 400 mg by mouth daily. multi vitamin/minerals tablet Take 1 tablet by mouth 2 (two) times daily. ondansetron (ZOFRAN) 4 MG tablet Take 1 tablet (4 mg total) by mouth every 8 (eight) hours as needed. 20 tablet 0 sertraline (ZOLOFT) 100 MG tablet TAKE 1 AND 1/2 TABLETS(150 MG) BY MOUTH DAILY 45 tablet 3 Review of patient's allergies indicates: Allergen Reactions Penicillins Anaphylaxis Can take Amoxicillin Shellfish Allergy Vomiting Past Medical History: Diagnosis Date Anxiety Depression Palpitations Past Surgical History: Procedure Laterality Date DENTAL PROCEDURE tooth extraction Social History Tobacco Use Smoking status: Every Day Packs/day: 0.25 Types: Cigarettes Start date: 1994 Passive exposure: Current Smokeless tobacco: Never Tobacco comments: trying to cut back Vaping Use Vaping Use: Never used Substance Use Topics Alcohol use: Not Currently Drug use: No Family History Problem Relation Name Age of Onset Cancer Mother breast Cancer Father prostate Heart Father Anxiety Father Family Status Relation Name Status Mother Alive Father Alive Physical Exam Constitutional: Patient is oriented to person, place, and time. Patient appears well-developed and well-nourished. HENT: Right Ear: External ear normal. Marked erythma with air fluid level Left Ear: External ear normal. Air fluid level Head: Normocephalic. Frontal sinus tenderness Nose: Nose normal. Turbinates are swollen Mouth/Throat: Oropharynx is clear and moist. Positive postnasal drainage Eyes: Pupils are equal, round, and reactive to light. Neck: No JVD present. Possible thyromegaly present neck fullness noted No nuchal rigidity Cardiovascular: Normal rate, regular rhythm, normal heart sounds and intact distal pulses. No murmur heard. Pulmonary/Chest: No respiratory distress. Patient has no wheezes. Patient has no rales. Patient exhibits no tenderness. Abdominal: Patient exhibits no distension and no mass. There is no tenderness. There is no rebound and no guarding. Musculoskeletal: Normal range of motion. Patient exhibits no edema, tenderness or deformity. Lymphadenopathy: Patient has positive cervical adenopathy. Neurological: Patient is alert and oriented to person, place, and time. Skin: No rash noted. No erythema. Psychiatric: Patient has a normal mood and affect. The behavior is normal. Thought content normal. View : No data to display. Vitals: 03/19/23 1329 Patient Position: Sitting BP Location: Left arm Cuff size: Adult Regular BP: 115/72 Pulse: 79 Body mass index is 24.73 kg/m??. Assessment and Plan Encounter Diagnose(s) ICD-10-CM ICD-9-CM SNOMED CT(R) 1. Neck fullness R22.1 784.2 ENLARGEMENT OF NECK US THYROID 2. Non-recurrent acute serous otitis media of right ear H65.01 381.01 ACUTE NON- SUPPURATIVE SEROUS OTITIS MEDIA azithromycin (ZITHROMAX Z-NAVID) 250 MG tablet ondansetron (ZOFRAN) 4 MG tablet 3. Nausea R11.0 787.02 NAUSEA ondansetron (ZOFRAN) 4 MG tablet Orders Placed This Encounter US THYROID azithromycin (ZITHROMAX Z-NAVID) 250 MG tablet ondansetron (ZOFRAN) 4 MG tablet Patient was told to push liquids and get lots of rest. Patient was told to use Tylenol for fever. Patient was told that if symptoms do not improve to utilize the emergency room, call their PCP, or follow back up with the walk-in clinic. If patient needs any additional time off not discussed and spelled out in a work release at this office visit they will need to contact the PCP or be seen in the walk in clinic. Patient should follow annual wellness exams recommended for age and sex of patient. Items to consider but not limited included yearly annual fasting labs, colonscopy or cologuard when indicated. PSA and prostate for males. Mammogram and female exam for females, Portions of this note were dictated using Movity speech recognition software. Occasional wrong wordor sound-alike substitutions may have occurred due to the inherent limitations of voice recognition software. Please read the chart carefully and recognize, using context, where the substitutions may have occurred. Trenton Trevizo PA-C evaluated and Dr. Violeta Ray reviewed and agrees with plan. documented in this encounter Plan of Treatment Not on file documented as of this encounter Visit Diagnoses Diagnosis Neck fullness- Primary Swelling, mass, or lump in head and neck Non-recurrent acute serous otitis media of right ear Nausea Nausea alone documented in this encounter Additional Health Concerns Assessment Noted Time PHQ-9 Depression Total Score: 15 11/26/ 023 10:20 AM SUPERVISOR BEAM DEPARTMENT documented as of this encounter Care Teams Fleet Salesperson Relationship Specialty [place] [address] [place] [address] PCP - General PHYSICIAN TRAILER STEERER 08/03/22 08/11/23 documented as of this encounter
--- OUTSIDE RECORDS SUMMARY | 2024-10-22 20:34 | XMS_ITS | Encounter Summary ---
Author Organization [facility] Address [address] [place] [address]. [place], [place] [address] [place] [address] Care Team Providers Care Project Controller Name Role Phone Akilah Gardner NP Primary Care Provider Mera Cesar Primary Care Provider [phone] Josefa RodríguezC Primary Care Provider [phone] Encounter Details Date Type Department Care Team (Late st Contact Info) Description 11/30/2021 upadt Message Enc [facility] Family & Internal Medicine [facility] [id number] [place] [phone] Akilah Gardner NP Social History Tobacco Use Types Packs/Day Years Used Date Smoking Tobacco: Every Day Cigarettes 0.3 30 Started: 1992 Smokeless Tobacco: Never Comments:trying to cut back Alcohol Use Standard Drinks/Week Comments Yes 0 (1 standard drink = 0.6 oz [...] occasion? Never 06/23/2020 PHQ-2 Answer Date Recorded PHQ-2 Score - If the patient scores above 3, please move on to questions 3-9 0 06/23/2020 Education Answer Date Recorded What is the highest level of school you have completed or the highest degree you have received? Some college, no degree 12/15/2018 Comments No Sex and Gender Information Value Date Recorded Sex Assigned at Female 12/15/2018 11:48 AM AIRPLANE PILOT SUPERVISOR Legal Sex Female 8:12 PM CDT Gender Identity Female 12/15/2018 11:48 AM AIRPLANE PILOT SUPERVISOR Sexual Orientation Straight 12/15/2018 11 :21 AM AIRPLANE PILOT SUPERVISOR 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 Not on file Not on file documented as of this encounter Plan of Treatment Not on file documented as of this encounter Visit Diagnoses Not on filedocumented in this encounter Additional Health Concerns Infection Onset Date Last Indicated Resolved Time COVID-19 Rule Out 09/12/2022 09/12/2022 09/12/2022 10:26 AM AIRPLANE PILOT SUPERVISOR COVID-19 Rule Out 09/12/2022 09/12/2022 09/12/2022 1:04 PM AIRPLANE PILOT SUPERVISOR COVID-19 Rule Out 09/12/2022 09/12/2022 09/13/2022 5:41 PM AIRPLANE PILOT SUPERVISOR COVID-19 Rule Out 11/26/2022 11/26/2022 11/26/2022 10:46 AM AIRPLANE PILOT SUPERVISOR Assessment Noted Time PHQ-9 Depression Total Score: 14 021 8:58 AM CDT documented as of this encounter Care Teams Project Controller Relationship Specialty Start Date End Date Akilah Gardner NP PCP - General NURSE PRACTITIONER 09/01/21 08/02/22 [place] [address] [place] [address] PCP - General PHYSICIAN NET APPLICATION SUPPORT SPECIALIST 08/03/22 08/11/23 Josefa Rodríguez PA-C [address] [address] PCP - General PHYSICIAN NET APPLICATION SUPPORT SPECIALIST 08/12/23 documented as of this encounter
--- OUTSIDE RECORDS SUMMARY | 2024-10-22 20:34 | XMS_ITS | Encounter Summary ---
Author Organization [facility] Address [address] [place] [address]. [place], [place] [address] [place] [address] Care Team Providers Care Finisher Card Tender Name Role Phone Mera Trevizo Primary Care Provider [phone] Reason for Referral * Consultation (Urgent) - Closed Specialty Diagnoses / Procedures Referred By Contac t Referred To Contact ENDOCRINOLOGY Diagnoses Low TSH level Heart palpitations Procedures OFFICE/OUTPT VISIT,NEW,LEVL III OFFICE/OUTPT VISIT,NEW,LEVL IV OFFICE/OUTPT VISIT,NEW,LEVL V OFFICE/OUTPT VISIT,EST,LEVL III OFFICE/OUTPT VISIT,EST,LEVL IV OFFICE/OUTPT VISIT,EST,LEVL V Mera Trevizo [place] [id number] [place] [address] Phone: tel: fax: [facility] [place] [address] Phone: tel: fax: Referral ID Status Reason Start Date Expiration Date Visits Re quested Visits Authorized [id number] Closed 08/07/2022 09/07/2023 100 100 Scheduling Instructions Whoever is in network and can get pt in [facility] Encounter Details Date Type Department Care Team (Late st Contact Info) Description 08/07/2022 Orders Only [facility] Family & Internal Medicine - [place] [address] [place] [address] [place] [address] [place] [address] Social History Tobacco Use Types Packs/Day Years [...] 3, please move on to questions 3-9 4 08/03/2022 Education Answer Date Recorded What is the highest level of school you have completed or the highest degree you have received? Some college, no degree 12/15/2018 Comments No Sex and Gender Information Value Date Recorded Sex Assigned at Female 12/15/2018 11:48 AM MERCHANDISING ASSISTANT Legal Sex Female 8:12 PM CDT Gender Identity Female 12/15/2018 11:48 AM MERCHANDISING ASSISTANT Sexual Orientation Straight 12/15/2018 11 :21 AM MERCHANDISING ASSISTANT Occupation Industry Job Start Date Job End Date [employer] Not on file Not on file Not on file COVID-19 Exposure Response Date Recorded In the last 10 days, have yo u been in contact with someone who was confirmed or suspected to have Coronavirus/COVID-19? No / Unsure 08/03/2022 10:00 AM CDT documented as of this encounter Plan of Treatment Scheduled Referrals Name Type Priority Associated Diagnoses Orde r Schedule Ambulatory referral to Endocrinology (OTHER) Referral [facility] Low TSH level Heart palpitations Ordered: 08/07/2022 documented as of this encounter Visit Diagnoses Diagnosis Low TSH level- Primary Nonspecific abnormal results of thyroid function study Heart palpitations Palpitations documented in this encounter Additional Health Concerns Assessment Noted Time PHQ-9 Depression Total Score: 17 022 10:11 AM CDT documented as of this encounter Care Teams Finisher Card Tender Relationship Specialty [place] [address] [place] [address] PCP - General PHYSICIAN MANAGER DATA WAREHOUSE 08/03/22 08/11/23 documented as of this encounter
--- OUTSIDE RECORDS SUMMARY | 2024-10-22 20:34 | XMS_ITS | Encounter Summary ---
Author Organization [facility] Address [address] [place] [address]. [place], [place] [address] [place] [address] Care Team Providers Care Track Repairer Name Role Phone Mera Trevizo Primary Care Provider [phone] Josefa Rodríguez PA-C Primary Care Provider [phone] Encounter Details Date Type Department Care Team (Late st Contact Info) Description 09/12/2022 [employer] (Inspect Manager) Message Enc [facility] Family & Internal Medicine [facility] [address] [place] [address] [place] [address] [place] [address] Doctors note Social History Tobacco Use Types Packs/Day Years [...] Sex Assigned at Female 12/15/2018 11:48 AM CLINICAL TRAINING SPECIALIST Legal Sex Female 8:12 PM CDT Gender Identity Female 12/15/2018 11:48 AM CLINICAL TRAINING SPECIALIST Sexual Orientation Straight 12/15/2018 11 :21 AM CLINICAL TRAINING SPECIALIST Occupation Industry Job Start Date Job End Date [employer] Not on file Not on file Not on file COVID-19 Exposure Response Date Recorded In the last 10 days, have yo u been in contact with someone who was confirmed or suspected to have Coronavirus/COVID-19? No / Unsure 09/12/2022 7:38 AM CLINICAL TRAINING SPECIALIST documented as of this encounter Plan of Treatment Not on file documented as of this encounter Visit Diagnoses Not on filedocumented in this encounter Additional Health Concerns Infection Onset Date Last Indicated Resolved Time COVID-19 Rule Out 09/12/2022 09/12/2022 09/12/2022 10:26 AM CLINICAL TRAINING SPECIALIST COVID-19 Rule Out 09/12/2022 09/12/2022 09/12/2022 1:04 PM CLINICAL TRAINING SPECIALIST COVID-19 Rule Out 09/12/2022 09/12/2022 09/13/2022 5:41 PM CLINICAL TRAINING SPECIALIST COVID-19 Rule Out 11/26/2022 11/26/2022 11/26/2022 10:46 AM CLINICAL TRAINING SPECIALIST Assessment Noted Time PHQ-9 Depression Total Score: 17 022 10:11 AM CDT documented as of this encounter Care Teams Track Repairer Relationship Specialty [place] [address] [place] [address] PCP - General PHYSICIAN SALES COORDINATOR 08/03/22 08/11/23 Josefa Rodríguez PA-C [address] [address] PCP - General PHYSICIAN SALES COORDINATOR 08/12/23 documented as of this encounter
--- OUTSIDE RECORDS SUMMARY | 2024-10-22 20:34 | XMS_ITS | Encounter Summary ---
Author Organization [facility] Address [address] [place] [address]. [place], [place] [id number] [place] [id number] Care Team Providers Care Security Incident Handler Name Role Phone Mera Trevizo Primary Care Provider [phone] Encounter Details Date Type Department Care Team (Latest Contact Info) Description 09/12/2022 12:52 PM INDUSTRIAL HEALTH AND SAFETY PROFESSOR - 09/12/2022 11:59 PM [facility] Hospital Encounter [facility] [address] [place], [place] [phone] [place] [address] [place], [place] [phone] Discharge Disposition: Home or Self Care (Routine [...] Sex Assigned at Female 12/15/2018 11:48 AM INDUSTRIAL HEALTH AND SAFETY PROFESSOR Legal Sex Female 8:12 PM CDT Gender Identity Female 12/15/2018 11:48 AM INDUSTRIAL HEALTH AND SAFETY PROFESSOR Sexual Orientation Straight 12/15/2018 11 :21 AM INDUSTRIAL HEALTH AND SAFETY PROFESSOR 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 No / Unsure 09/12/2022 7:38 AM INDUSTRIAL HEALTH AND SAFETY PROFESSOR documented as of this encounter Medications at Time of Discharge acidiphilus probiotic tablet Take 2 tablets by mouth daily. 07/09/2017 ACYCLOVIR 400 MG tabletIndications :Herpes simplex TAKE 1 TABLET BY MOUTH DAILY 150 tablet 01/09/2022 MAGNESIUM ASPARTATE OR Take 400 mg by mouth daily. multi vitamin/minerals tablet Take 1 tablet by mouth 2 (two) times daily. azithromycin (ZITHROMAX) 250 MG tabletIndications :Sore throat,Upper respiratory tract infection, unspecified type Take 2 tablets by mouth on day one then 1 daily for four days. 6 tablet 09/12/2022 03/12/2023 sertraline (ZOLOFT) 100 MG tabletIndications :Anxiety and depression TAKE 1 AND 1/2 TABLETS(150 MG) BY MOUTH DAILY 45 tablet 3 08/03/2022 01/01/2023 documented as of this encounter Plan of Treatment Not on file documented as of this encounter Procedures Procedure Name Priority Date/Time Associated Diagnosis Comments CORONAVIRUS (COVID 19) Routine 10:24 AM INDUSTRIAL HEALTH AND SAFETY PROFESSOR SED RATE, ERYTHROCYTE (ESR) Routine 09/12/2022 10:24 AM INDUSTRIAL HEALTH AND SAFETY PROFESSOR COMPREHENSIVE METABOLIC PANEL Routine 09/12/2022 10:24 AM INDUSTRIAL HEALTH AND SAFETY PROFESSOR Palpitations LIPID PANEL Routine 09/12/2022 10:24 AM INDUSTRIAL HEALTH AND SAFETY PROFESSOR Lipid screening CBC W/DIFF AUTOMATED Routine 09/12/2022 10:24 AM INDUSTRIAL HEALTH AND SAFETY PROFESSOR Other fatigue Sore throat THYROXINE, FREE (FT4) Routine 09/12/2022 10:24 AM INDUSTRIAL HEALTH AND SAFETY PROFESSOR Palpitations Abnormal TSH THYROID STIM HORMONE TSH Routine 09/12/2022 10:24 AM INDUSTRIAL HEALTH AND SAFETY PROFESSOR Palpitations Abnormal TSH documented in this encounter Results * SED RATE, ERYTHROCYTE (ESR) (09/12/2022 10:24 AM INDUSTRIAL HEALTH AND SAFETY PROFESSOR) ESR 16 0 - 20 MM/HR 09/13/2022 8:52 AM INDUSTRIAL HEALTH AND SAFETY PROFESSOR [facility] 09/12/2022 10:2 4 AM INDUSTRIAL HEALTH AND SAFETY PROFESSOR us [facility] Final Result Performing Organization Address City/Va Hospital/ZIP Co de Phone Number [facility] [address] [place] [address], [place] [phone] * CORONAVIRUS (COVID 19) (09/12/2022 10:24 AM INDUSTRIAL HEALTH AND SAFETY PROFESSOR) SPECIMEN SOURCE NASAL 1:05 PM INDUSTRIAL HEALTH AND SAFETY PROFESSOR [facility] CORONAVIRUS SARS COV 2 PCR (RESP) NEGATIVE NEGATIVE 09/13/2022 5:41 PM INDUSTRIAL HEALTH AND SAFETY PROFESSOR [facility] Comment: THE SARS-CoV-2 TEST HAS BEEN AUTHORIZED BY THE FDA UNDER AN EUA FOR USE BY AUTHORIZED LABORATORIES. PERFORMED BY NUCLEIC ACID AMPLIFICATION PCR 09/12/2022 10:2 4 AM INDUSTRIAL HEALTH AND SAFETY PROFESSOR us [facility] MICROBIOLOGY - GENERAL ORDER ELIZABETH Final Result [facility] [address] [place] [address], [place] [phone] [facility] [address] [place] [address], [place] [phone] * (ABNORMAL) CBC W/DIFF AUTOMATED (09/12/2022 10:24 AM INDUSTRIAL HEALTH AND SAFETY PROFESSOR) [facility] Signature WBC 4.6 4.4 - 11.0 x10'3/uL 09/12/2022 1:10 PM [facility] RBC 4.13(L) 4.50 - 5.10 x10'6/uL 09/12/2022 1:10 PM [facility] HGB 12.2(L) 12.3 - 15.3 G/DL 09/12/2022 1:10 PM [facility] HCT 36.8 35.9 - 44.6 % 09/12/2022 1:10 PM [facility] MCV 89.1 80.0 - 96.0 FL 09/12/2022 1:10 PM [facility] MCH 29.5 25.3 - 30.9 PG 09/12/2022 1:10 PM [facility] MCHC 33.2 31.0 - 34.1 G/DL 09/12/2022 1:10 PM [facility] RDW 12.3(L) 12.4 - 15.1 % 09/12/2022 1:10 PM [facility] PLT 132(L) 151 - 353 x10'3/uL 09/12/2022 1:10 PM [facility] MPV 12.3(H) 9.6 - 12.0 FL 09/12/2022 1:10 PM [facility] RBC MORPHOLOGY NORMAL 09/12/2022 1:10 PM [facility] PLT MORPH. NORMAL 09/12/2022 1:10 PM [facility] WBC MORPHOLOGY NORMAL 09/12/2022 1:10 PM [facility] LYMPHOCYTES % 32.0 15.8 - 45.0 % 09/12/2022 1:10 PM INDUSTRIAL HEALTH AND SAFETY PROFESSOR [facility] NEUTROPHILS % 56.0 42.1 - 71.9 % 09/12/2022 1:10 PM [facility] MONOCYTES % 9.6 5.7 - 12.5 % 09/12/2022 1:10 PM [facility] EOSINOPHILS 1.8 0.0 - 5.6 % 09/12/2022 1:10 PM [facility] BASOPHILS 0.4 0.0 - 1.3 % 09/12/2022 1:10 PM [facility] ABS. NEUTROPHILS 2.55 1.40 - 6.00 x10'3/uL 09/12/2022 1:10 PM [facility] IMMATURE GRANS % 0.2 0.0 - 0.5 % 09/12/2022 1:10 PM [facility] ABS. LYMPHOCYTES 1.46 0.80 - 4.70 x10'3/uL 09/12/2022 1:10 PM [facility] 09/12/2022 10:2 4 AM INDUSTRIAL HEALTH AND SAFETY PROFESSOR [facility] Final Result Performing Organization Address City/State/[facility] Co de Phone Number [facility] [address] [place] [address], * (ABNORMAL) COMPREHENSIVE METABOLIC PANEL (09/12/2022 10:24 AM INDUSTRIAL HEALTH AND SAFETY PROFESSOR) [facility] GLUCOSE 123(H) 70 - 99 MG/DL 09/12/2022 2:09 PM [facility] BUN 9 7 - 18 MG/DL 09/12/2022 2:09 PM [facility] CREATININE S/P/B 0.46(L) 0.55 - 1.02 MG/DL 09/12/2022 2:09 PM [facility] SODIUM S/P/B 142 136 - 145 MMOL/L 09/12/2022 2:09 PM [facility] POTASSIUM S/P/B 4.0 3.5 - 5.1 MMOL/L 09/12/2022 2:09 PM [facility] CHLORIDE S/P/B 107 100 - 108 MMOL/L 09/12/2022 2:09 PM [facility] CO2 27.7 21 - 32 MMOL/L 09/12/2022 2:09 PM [facility] CALCIUM S/P/B 8.7 8.5 - 10.1 MG/DL 09/12/2022 2:09 PM [facility] BILIRUBIN TOTAL S/P/B 0.7 0.2 - 1.2 MG/DL 09/12/2022 2:09 PM [facility] TOTAL PROTEIN S/P/B 6.2(L) 6.4 - 8.2 G/DL 09/12/2022 2:09 PM [facility] ALBUMIN S/P/B 3.3(L) 3.4 - 5.0 G/DL 09/12/2022 2:09 PM [facility] AST 18 15 - 37 U/L 09/12/2022 2:09 PM [facility] ALT 29 14 - 55 U/L 09/12/2022 2:09 PM [facility] ALKALINE PHOSPHATASE S/P/B 94 50 - 136 U/L 09/12/2022 2:09 PM [facility] ANION GAP 7.3 5 - 15 MMOL/L 09/12/2022 2:09 PM [facility] BUN CREATININE RATIO 19.6 6 - 26 09/12/2022 2:09 PM [facility] A/G RATIO 1.1 1.0 - 2.0 RATIO 09/12/2022 2:09 PM [facility] GFR ESTIMATE >90 >90 ML/MIN/1.7 3 M2 09/12/2022 2:09 PM [facility] Comment: NOTE: eGFR is not calculated for patients <18 years of age. This is an estimated GFR calculation using the new CKD EPI creatinine equation without race and so does not require a correction factor for race. This estimated GFR should not be used for calculating drug doses. 09/12/2022 10:2 4 AM INDUSTRIAL HEALTH AND SAFETY PROFESSOR [facility] Final Result [facility] [address] [place] [address], * (ABNORMAL) LIPID PANEL (09/12/2022 10:24 AM INDUSTRIAL HEALTH AND SAFETY PROFESSOR) CHOLESTEROL 102 <200.0 MG/DL 09/12/2022 2:09 PM [facility] TRIGLYCERIDES 168(H) <150 MG/DL 09/12/2022 2:09 PM [facility] HDL 42 >40.0 MG/DL 09/12/2022 2:09 PM [facility] LDL (CALCULATED) 26 <100 MG/DL 09/12/2022 2:09 PM [facility] NON HDL CHOLESTEROL 60 <130 MG/DL 09/12/2022 2:09 PM [facility] CHOL/HDL RATIO 2.4 0.0 - 4.5 09/12/2022 2:09 PM [facility] VLDL CALCULATION 34 5 - 55 MG/DL 09/12/2022 2:09 PM [facility] LIPID INTERPRETATION 09/12/2022 2:09 PM INDUSTRIAL HEALTH AND SAFETY PROFESSOR [facility] Comment: [facility] REPORT RECOMMENDATIONS: ?ADULT ?CHILD ??LOW RISK: ?CHOLESTEROL ? <200 ? <170 ?TRIGLYCERIDE ?<150 ?--- ?HDL ? >=60 ?--- ?LDL ? <100 ? <110 ??BORDERLINE: ?CHOLESTEROL ? 200-239 ?? 170-199 ?TRIGLYCERIDE ?150-199 ? --- ?HDL ?40-59 ?--- ?LDL ? 100-159 ?? 110-129 ??HIGH RISK: ?CHOLESTEROL ? >=240 ?>=200 ?TRIGLYCERIDE ?>=200 ? --- ?HDL ?<40 ?--- ?LDL ? >=160 ?>=130 09/12/2022 10:2 4 AM INDUSTRIAL HEALTH AND SAFETY PROFESSOR us [facility] Final Result [facility] [address] [place] [address], [place] [phone] * (ABNORMAL) THYROID STIM HORMONE, TSH (09/12/2022 10:24 AM INDUSTRIAL HEALTH AND SAFETY PROFESSOR) TSH 0.002(L) 0.358 - 3.74 uIU/ML 09/12/2022 2:09 PM INDUSTRIAL HEALTH AND SAFETY PROFESSOR [facility] Comment: HIGH DOSES OF BIOTIN MAY INTERFERE WITH THIS TEST RESULT. CORRELATION TO CLINICAL HISTORY AND PRESENTATION RECOMMENDED. 09/12/2022 10:2 4 AM INDUSTRIAL HEALTH AND SAFETY PROFESSOR us [facility] Final Result Performing Organization Address [facility] de Phone Number [facility] [address] [place] [address], [place] [phone] * (ABNORMAL) THYROXINE, FREE (FT4) (09/12/2022 10:24 AM INDUSTRIAL HEALTH AND SAFETY PROFESSOR) FREE T4 3.11(H) 0.76 - 1.46 NG/DL 09/12/2022 2:09 PM INDUSTRIAL HEALTH AND SAFETY PROFESSOR [facility] 09/12/2022 10:2 4 AM INDUSTRIAL HEALTH AND SAFETY PROFESSOR us [facility] Final Result Performing Organization Address [facility] Co de Phone Number [facility] [address] [place] [address], [place] [phone] documented in this encounter Visit Diagnoses Diagnosis Suspected COVID-19 virus infection Palpitations Abnormal TSH Other abnormal clinical finding Lipid screening Screening for lipoid disorders Other fatigue Sore throat Acute pharyngitis documented in this encounter Additional Health Concerns Infection Onset Date Last Indicated Resolved Time COVID-19 Rule Out 09/12/2022 09/12/2022 09/12/2022 1:04 PM INDUSTRIAL HEALTH AND SAFETY PROFESSOR COVID-19 Rule Out 09/12/2022 09/12/2022 09/13/2022 5:41 PM INDUSTRIAL HEALTH AND SAFETY PROFESSOR Assessment Noted Time PHQ-9 Depression Total Score: 17 022 10:11 AM CDT documented as of this encounter Care Teams Security Incident Handler Relationship Specialty Start [place] [address] [place] [address] PCP - General PHYSICIAN WIRE REPAIRER 08/03/22 08/11/23 documented as of this encounter
--- OUTSIDE RECORDS SUMMARY | 2024-10-22 20:34 | XMS_ITS | Encounter Summary ---
Author Organization [facility] Address [address] [place] [address]. [place], [place] [id number] [place] [id number] Care Team Providers Care Manufacturer'S Service Representative Name Role Phone Yunior Hogan PA-C Primary Care Provider [phone] Reason for Referral * Consultation (Routine) - Closed Specialty Diagnoses / Procedures Referred By Hussein marrufo Referred To Contact GASTROENTEROLOGY Diagnoses Polyp of colon, unspecified part of colon, unspecified type Constipation, unspecified constipation type Screening for colon cancer Yunior Hogan PA-C [id number] [facility] [address] [place] [address] Phone: tel: fax: Perla Serna MD [address] [facility] [address] [place] [phone] Phone: tel: fax: Referral ID Status Reason Start Date Expiration Date V isits Requested Visits Authorized [id number] Closed Specialty Services 08/28/2023 09/27/2024 100 100 * Consultation (Urgent) - Closed Specialty Diagnoses / Procedures Referred By Contnikhil t Referred To Contact Internal Medicine-Endocrinology, Diabetes & Metabolism Diagnoses Hyperthyroidism Procedures OFFICE/OUTPATIENT NEW LOW MDM 30-44 MINUTES OFFICE/OUTPT VISIT,NEW,LEVL IV OFFICE/OUTPT VISIT,NEW,LEVL V OFFICE/OUTPT VISIT,EST,LEVL III OFFICE/OUTPT VISIT,EST,LEVL IV OFFICE/OUTPT VISIT,EST,LEVL V Yunior Hogan PA-C [id number] [facility] [address] [place] [address] Phone: tel: [place]: [place] [id number] [facility] [address] [place] [address] Phone: tel: fax: Referral ID Status Reason Start Date Expiration Date V isits Requested Visits Authorized [id number] Closed Specialty Services 08/28/2023 09/27/2024 100 100 * Consultation (Routine) - Closed Specialty Diagnoses / Procedures Referred By Contact Referred To Contact CARDIOLOGY / Cardiology Diagnoses Palpitations Shortness of breath on exertion Procedures OFFICE/OUTPATIENT NEW LOW MDM 30-44 MINUTES OFFICE/OUTPT VISIT,NEW,LEVL IV OFFICE/OUTPT VISIT,NEW,LEVL V OFFICE/OUTPT VISIT,EST,LEVL III OFFICE/OUTPT VISIT,EST,LEVL IV OFFICE/OUTPT VISIT,EST,LEVL V Yunior Hogan PA-C [id number] [facility] [address] [place] [address] Phone: tel: fax: [facility] [address] Phone: tel: fax: Referral ID Status Reason Start Date Expiration Date V isits Requested Visits Authorized [id number] Closed Specialty Services 08/28/2023 09/26/2024 99 99 Reason for Visit * Reason Comments Follow Up Transfer care from [facility]. No problems. Will need some referrals. Encounter Details Date Type Department Care Team (Late st Contact Info) Description 08/28/2023 9:00 AM CDT Office Visit [facility] Family [facility] Internal Medicine - [address] [phone] Yunior Hogan PA-C [id number] [facility] [address] [place] [address] Follow Up (Transfer care from [place]. No problems. Will need some referrals. ) Social History Tobacco Use Types Packs/Day Years Used Date Smoking Tobacco: Every Day Cigarettes 0.3 30 Started: 1994 Passive Smoke Exposure: Current Smokeless Tobacco: Never Tobacco Cessation:Ready to Q uit: Yes; Counseling Given: Yes Comments:trying to cut back [...] Sex Assigned at Female 12/15/2018 11:48 AM H[employer] AND [employer] SEWER Legal Sex Female 8:12 PM CDT Gender Identity Female 12/15/2018 11:48 AM HAT AND CAP SEWER Sexual Orientation Straight 12/15/2018 11 :21 AM HAT AND CAP SEWER Occupation Industry Job Start Date Job End Date [employer] Not on file Not on file Not on file documented as of this encounter Last Filed Vital Signs Vital Sign Reading Time Taken Comments Blood Pressure 128/71 08/28/2023 9:05 AM CDT Pulse 82 08/28/2023 9:05 AM CDT Temperature 36.3 ??C (97.3 ??F) 08/28/2023 9:05 AM CD T Respiratory Rate 16 08/28/2023 9:05 AM CDT Oxygen Saturation 97% 08/28/2023 9:05 AM CDT Inhaled Oxygen Concentration - - Weight 66.7 kg (147 lb) 08/28/2023 9:05 AM CDT Height 167.6 cm (5' 6 ) 08/28/2023 9:05 AM CDT Body Mass Index 23.73 08/28/2023 9:05 AM CDT documented in this encounter Progress Notes * Yunior Hogan PA-C - 08/28/2023 9:00 AM CDT Reason for Visit: Follow Up (Transfer care from [place]. No problems. Will need some referrals. ) History of Present Illness: Mood-sertraline 150 mg daily=> stable. 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 03/12/2023 TSH low, free T4 high=> previous PCP recommended endocrinology=> new referral placed. Complains of palpitations that happen monthly with a heart rate going up to 150. Notes changes in her vision and has exophthalmos. Struggled going to endocrinology due to insurance issues. Open to going at this time. Previously saw cardiology a couple of years ago. Had a 48-hour Holter monitor that did not reveal anything. She complains of chest pain with exertion and shortness of breath with exertion. States thepalpitations are worse during her menstrual cycles. Does have a history of hypothyroidism that has been untreated for years. Does have a family history of atrial fibrillation in her father. Her father had a cardiac event in his 40s. She has never had an echocardiogram. Complains of worsening constipation and pain in her left lower quadrant. Previously had a colonoscopy that revealed colonic polyps and she was due to get a colonoscopy in the past. New referral placed. States due to insurance issues she struggled to be able to go. She does struggle with anemia. 09/12/2022 CBC shows hemoglobin 12.2; CMP shows glucose 123, creatinine 0.46, total protein 6.2, albumin 3.3; total cholesterol 102, triglycerides 168, LDL 26 Health Maintenance: Gynecological Care: Follows with gynecology. Appointment coming up. Mammogram: Follows with gynecology. Appointment coming up. Cervical cancer screening: Up-to-date. Follows with gynecology, appointment coming up Colonoscopy: Due. Previous colonoscopy 10 years ago showed colonic polyps. Denies any family history of colon cancer. Referral placed. Dexa: Not indicated Immunizations: Recommended tetanus at health department and influenza. Body mass index is 23.73 Physical activity: Active Dental: Due to insurance, struggles to go. She does brush her teeth, floss and uses mouthwash Vision: Due. High likelihood of thyroid eye disease Hearing: Occasionally will notice decreased hearing when her allergies are bad. Metabolic screening: Ordered today HCV: JENN-7 (Generalized Anxiety Disorder) Screening 11/26/2022 10:00 AM 03/19/2023 1:40 PM JENN-7 Feeling nervous, anxious and on edge 0 - not at all 0 - not at all Not being able to stop or control worrying 0 - not at all 0 - not at all Worrying too much about different things 1 - several days 0 - not at all Trouble Relaxing 1 - several days 1 - several days Being so restless that it's hard to sit still 0 - not at all 0 - not at all Becoming easily annoyed or irritable 1 - several days 0 - not at all Feeling afraid as if something awful might happen 1 - several days 0 - not at all Total Score 4 1 If you checked off any problems, how difficult have those problems made it for you to do your work take care of things at home or get along with other people? not difficult at all not difficult at all PHQ-9: 11/26/2022 10:20 AM 03/19/2023 1:34 PM PHQ2/PHQ 9 DEPRESSION SCREEN QUESTIONAIRE Little interest or pleasure in doing things Almost all Not at all Feeling down, depressed, or hopeless Not at all Not at all Patient Health Questionnaire-2 Score 3 0 Trouble falling or staying asleep, or sleeping too much Almost all Feeling tired or having little energy Almost all Poor appetite or overeating Almost all Feeling bad about yourself - or that you are a failure or have let yourself or your family down Notat all Trouble concentrating on things, such as reading the newspaper or watching television Several days Moving or speaking so slowly that other people could have noticed? Or the opposite - being so fidgety or restless that you have been moving around a lot more than usual. Over half Thoughts that you would be better off or hurting yourself in some way Not at all Patient Health Questionnaire-9 Score 15 How difficult have these problems made it for you to do your work, take care of things at home, or get along with other people? Somewhat difficult ROS: Review of Systems Constitutional: Negative. HENT: Negative. Eyes: Positive for blurred vision. Respiratory: Negative. Cardiovascular: Positive for chest pain and palpitations. Negative for leg swelling. Gastrointestinal: Positive for abdominal pain and constipation. Negative for diarrhea, nausea and vomiting. Genitourinary: Negative. Musculoskeletal: Negative. Skin: Negative. Neurological: Positive for headaches. Psychiatric/Behavioral: Positive for depression. The patient is nervous/anxious. Medications: Current Outpatient Medications: acidiphilus probiotic tablet, Take 2 tablets by mouth daily., Disp: , Rfl: ACYCLOVIR 400 MG tablet, TAKE 1 TABLET BY MOUTH DAILY, Disp: 150 tablet, Rfl: 0 MAGNESIUM ASPARTATE OR, Take 400 mg by mouth daily., Disp: , Rfl: multi vitamin/minerals tablet, Take 1 tablet by mouth 2 (two) times daily., Disp: , Rfl: sertraline (ZOLOFT) 100 MG tablet, TAKE 1 & 1/2 TABLETS BY MOUTH EVERY DAY, Disp: 45 tablet, Rfl: 0 azithromycin (ZITHROMAX Z-NAVID) 250 MG tablet, Take 2 tablets by mouth on day one then 1 daily for four days. (Patient not taking: Reported on 08/28/2023), Disp: 6 tablet, Rfl: 0 ondansetron (ZOFRAN) 4 MG tablet, Take 1 tablet (4 mg total) by mouth every 8 (eight) hours as needed. (Patient not taking: Reported on 08/28/2023), Disp: 20 tablet, Rfl: 0 Review of patient's allergies indicates: Allergen Reactions Penicillins Anaphylaxis Can take Amoxicillin Shellfish Allergy Vomiting Past Medical History: Diagnosis Date Anxiety Depression Palpitations Past Surgical History: Procedure Laterality Date DENTAL PROCEDURE tooth extraction Social History Tobacco Use Smoking status: Every Day Packs/day: 0.25 Years: 20.00 Pack years: 5.00 Types: Cigarettes Start date: 1994 [...] appearance. She is not ill-appearing or toxic-appearing. HENT: Head: Normocephalic and atraumatic. Right Ear: Tympanic membrane, external ear and ear canal normal. Left Ear: Tympanic membrane, external ear and ear canal normal. Comments: Small amount of fluid behind bilateral tympanic membranes. Nose: Nose normal. Mouth/Throat: Mucous membranes are moist. No oropharyngeal exudate or posterior oropharyngeal erythema. Eyes: Extraocular Movements: Extraocular movements intact. Conjunctiva/sclera: Conjunctivae normal. Pupils: Pupils are equal, round, and reactive to light. Neck: Thyroid: Thyromegaly and thyroid tenderness present. Vascular: Carotid bruit present. Cardiovascular: Rate and Rhythm: Normal rate and regular rhythm. Heart sounds: Normal heart sounds. No murmur heard. Pulmonary: Effort: Pulmonary effort is normal. No respiratory distress. Breath sounds: Normal breath sounds. Abdominal: General: Bowel sounds are normal. Palpations: Abdomen is soft. Tenderness: There is abdominal tenderness (Left lower quadrant without rebound, guarding or rigidity). Musculoskeletal: General: Normal range of motion. Cervical back: Normal range of motion and neck supple. No rigidity or tenderness. Lymphadenopathy: Cervical: Cervical adenopathy present. Skin: General: Skin is warm. Findings: No rash. Neurological: General: No focal deficit present. Mental Status: She is alert and oriented to person, place, and time. Psychiatric: Mood and Affect: Mood normal. Behavior: Behavior normal. Thought Content: Thought content normal. Judgment: Judgment normal. Filed Vitals: 08/28/23 0905 BP: 128/71 Pulse: 82 Resp: 16 Temp: 97.3 ??F (36.3 ??C) TempSrc: Temporal SpO2: 97% Weight: 66.7 kg (147 lb) Height: 1.676 m (5' 6 ) Assessment Encounter Diagnose(s) ICD-10-CM SNOMED CT(R) 1. Annual physical exam Z00.00 PATIENT ENCOUNTER STATUS CBC W/DIFF AUTOMATED COMPREHENSIVE METABOLIC PANEL TSH W/REFLEX VITAMIN D, 25 OH LIPID PANEL CBC W/DIFF AUTOMATED COMPREHENSIVE METABOLIC PANEL TSH W/REFLEX VITAMIN D, 25 OH LIPID PANEL 2. Hyperthyroidism E05.90 HYPERTHYROIDISM TSH W/REFLEX Ambulatory referral to Endocrinology (OTHER) TSH W/REFLEX 3. Anemia, unspecified type D64.9 ANEMIA CBC W/DIFF AUTOMATED CBC W/DIFF AUTOMATED IRON SAT PANEL (IRON,IBC,%SAT) FERRITIN VITAMIN B12 / FOLATE IRON SAT PANEL (IRON,IBC,%SAT) FERRITIN VITAMIN B12 / FOLATE 4. Palpitations R00.2 PALPITATIONS CBC W/DIFF AUTOMATED COMPREHENSIVE METABOLIC PANEL TSH W/REFLEX EVENT MONITOR 30 DAYS USE ECHOCARDIOGRAM Ambulatory referral to Cardiology, Adult (OTHER) CBC W/DIFF AUTOMATED COMPREHENSIVE METABOLIC PANEL TSH W/REFLEX 5. Polyp of colon, unspecified part of colon, unspecified type K63.5 POLYP OF COLON Ambulatory referral to Gastroenterology ([facility] Colonoscopy Screening) 6. Constipation, unspecified constipation type K59.00 CONSTIPATION Ambulatory referral to Gastroenterology ([facility] Colonoscopy Screening) 7. Screening for colon cancer Z12.11 PATIENT ENCOUNTER STATUS Ambulatory referral to Gastroenterology ([facility] Colonoscopy Screening) 8. Shortness of breath on exertion R06.02 DYSPNEA ON EXERTION EVENT MONITOR 30 DAYS USE ECHOCARDIOGRAM Ambulatory referral to Cardiology, Adult (OTHER) 9. Lipid screening Z13.220 PATIENT ENCOUNTER STATUS LIPID PANEL LIPID PANEL 10. Screening for diabetes mellitus Z13.1 PATIENT ENCOUNTER STATUS COMPREHENSIVE METABOLIC PANEL COMPREHENSIVE METABOLIC PANEL 11. Vitamin D deficiency E55.9 VITAMIN D DEFICIENCY VITAMIN D, 25 OH VITAMIN D, 25 OH 12. Bilateral carotid bruits R09.89 CAROTID BRUIT US CAROTID DUPLEX SOHAM Recommendations and Plan: 1. Annual physical exam Do monthly self-breast exams. Genetic testing is available for patients with family history of cancer. It is strongly advised to have an annual flu shot in the fall, keep up to date with Tdap every 10 years and consider a Shingles Vaccine at age 50. She could obtain at most pharmacies. Have mammogram yearly, bone density every 2-3 years at age 65 and colonoscopy every 5-10 years depending on history. Engage in daily exercise of low impact aerobic exercise 45-60 minutes 4-5 times weekly. Avoid tobacco and illicit drugs as well as using moderation with alcohol intake less than 1-2 8 oz beverages daily. This lifestyle behavior pattern will lead to less health conditions and longer life span. If Body Mass Index greater than 25 weight watchers or dietary consult advise Recommend continue to follow up with gynecology. - CBC W/DIFF AUTOMATED; Future - COMPREHENSIVE METABOLIC PANEL; Future - TSH W/REFLEX; Future - VITAMIN D, 25 OH; Future - LIPID PANEL; Future - CBC W/DIFF AUTOMATED - COMPREHENSIVE METABOLIC PANEL - TSH W/REFLEX - VITAMIN D, 25 OH - LIPID PANEL 2. Hyperthyroidism Patient has evidence of exophthalmos noted during physical exam, palpitations up to heart rate of 150, and concerning signs due to unmanaged hyperthyroidism. Due to this we will place urgent referralto endocrinology. - TSH W/REFLEX; Future - Ambulatory referral to Endocrinology (OTHER) - TSH W/REFLEX 3. Anemia, unspecified type We will check CBC, iron levels, B12 and folate for further treatment plans. - CBC W/DIFF AUTOMATED; Future - CBC W/DIFF AUTOMATED - IRON SAT PANEL (IRON,IBC,%SAT); Future - FERRITIN; Future - VITAMIN B12 / FOLATE; Future - IRON SAT PANEL (IRON,IBC,%SAT) - FERRITIN - VITAMIN B12 / FOLATE 4. Palpitations Patient states she is having palpitations with a heart rate up to 150 and her Apple/Fitbit watch states that she is having episodes of atrial fibrillation. She has a family history of atrial fibrillation in her father. Due to this order was placed for event monitor and referral to cardiology was placed. Will defer to cardiology for additional treatment plans. We did discuss uncontrolled hypothyroidism can contribute to this. - CBC W/DIFF AUTOMATED; Future - COMPREHENSIVE METABOLIC PANEL; Future - TSH W/REFLEX; Future - EVENT MONITOR 30 DAYS; Future - USE ECHOCARDIOGRAM; Future - Ambulatory referral to Cardiology, Adult (OTHER) - CBC W/DIFF AUTOMATED - COMPREHENSIVE METABOLIC PANEL - TSH W/REFLEX 5. Polyp of colon, unspecified part of colon, unspecified type - Ambulatory referral to Gastroenterology ([facility] Colonoscopy Screening) 6. Constipation, unspecified constipation type Recommend addition of MiraLAX daily to help with this. - Ambulatory referral to Gastroenterology ([facility] Colonoscopy Screening) 7. Screening for colon cancer - Ambulatory referral to Gastroenterology ([facility] Colonoscopy Screening) 8. Shortness of breath on exertion Patient complains of chest pain with exertion and shortness of breath with exertion. She has a strong family history of cardiac disease. Due to this we will place referral to cardiology along with the event monitor and echocardiogram. Will defer to cardiology for additional treatment plans. - EVENT MONITOR 30 DAYS; Future - USE ECHOCARDIOGRAM; Future - Ambulatory referral to Cardiology, Adult (OTHER) 9. Lipid screening - LIPID PANEL; Future - LIPID PANEL 10. Screening for diabetes mellitus - COMPREHENSIVE METABOLIC PANEL; Future - COMPREHENSIVE METABOLIC PANEL 11. Vitamin D deficiency - VITAMIN D, 25 OH; Future - VITAMIN D, 25 OH 12. Bilateral carotid bruits Physical exam was notable for bilateral carotid artery bruits. Due to this ultrasound was ordered. - US CAROTID DUPLEX SOHAM; Future Follow up 3 months. Return to clinic with new, persistent, or worsening symptoms. Frances Maguire is inagreement to and verbalized understanding of treatment plan with no further questions at this time. I spent 35 minutes obtaining history and performing exam. Time [...] Portions of this note were dictated using [employer] speech recognition software. Occasional wrong wordor sound-alike substitutions may have occurred due to the inherent limitations of voice recognition software. Please read the chart carefully and recognize, using context, where the substitutions may have occurred. Yunior Hogan PA-C, evaluated and Dr Yrn Padilla reviewed and agrees with plan. YUNIOR HOGAN PA-C 08/28/2023 9:59 AM documented in this encounter Plan of Treatment Scheduled Orders Name Type Priority Associated Diagnoses Orde r Schedule CBC W/DIFF AUTOMATED Lab Routine Annual physical exam Anemia, unspecified type Palpitations Expected: 08/28/2023, Expires: 08/27/2024 COMPREHENSIVE METABOLIC PANEL Lab Routine Annual physical exam Palpitations Screening for diabetes mellitus Expected: 08/28/2023, Expires: 08/27/2024 TSH W/REFLEX Lab Routine Annual physical exam Hyperthyroidism Palpitations Expected: 08/28/2023, Expires: 08/27/2024 VITAMIN D, 25 OH Lab Routine Annual physical exam Vitamin D deficiency Expected: 08/28/2023, Expires: 08/27/2024 LIPID PANEL Lab Routine Annual physical exam Lipid screening Expected: 08/28/2023, Expires: 08/27/2024 IRON SAT PANEL (IRON,IBC,%SAT) Lab Routine Anemia, unspecified type Expected: 08/28/2023, Expires: 08/27/2024 FERRITIN Lab Routine Anemia, unspecified type Expected: 08/28/2023, Expires: 08/27/2024 VITAMIN B12 / FOLATE Lab Routine Anemia, unspecified type Expected: 08/28/2023, Expires: 08/27/2024 Scheduled Referrals Name Type Priority Associated Diagnoses Orde r Schedule Ambulatory referral to Cardiology, Adult (OTHER) Referral Routine Palpitations Shortness of breath on exertion Ordered: 08/28/2023 Ambulatory referral to Endocrinology (OTHER) Referral Routine Hyperthyroidism Ordered: 08/28/2023 Ambulatory referral to Gastroenterology ([facility] Colonoscopy Screening) Referral Routine Polyp of colon, unspecified part of colon, unspecified type Constipation, unspecified constipation type Screening for colon cancer Ordered: 08/28/2023 documented as of this encounter Visit Diagnoses Diagnosis Annual physical exam- Primary Routine general medical examination at a health care facility Hyperthyroidism Thyrotoxicosis without mention of goiter or other cause, without mention of thyrotoxic crisis or storm Anemia, unspecified type Palpitations Polyp of colon, unspecified part of colon, unspecified type Constipation, unspecified constipation type Screening for colon cancer Special screening for malignant neoplasms, colon Shortness of breath on exertion Shortness of breath Lipid screening Screening for lipoid disorders Screening for diabetes mellitus Vitamin D deficiency Unspecified vitamin D deficiency Bilateral carotid bruits documented in this encounter Additional Health Concerns Assessment Noted Time PHQ-9 Depression Total Score: 15 023 10:20 AM HAT AND CAP SEWER documented as of this encounter Care Teams Manufacturer'S Service Representative Relationship Specialty Start Date End Date Yunior Hogan PA-C [id number] [address] PCP - General PHYSICIAN FIBER ARTIST 08/12/23 documented as of this encounter
--- OUTSIDE RECORDS SUMMARY | 2024-10-22 20:34 | XMS_ITS | Encounter Summary ---
Author Organization [facility] Address [address] [place] [address]. [place], [place] [id number] [place] [address] Care Team Providers Care Yard Foreman Name Role Phone Josefa Rodríguez PA-C Primary Care Provider [phone] Reason for Visit * Reason Comments Back Pain Encounter Details Date Type Department Care Team (Late st Contact Info) Description 11/07/2023 1:40 PM CREW TRUCK DRIVER - 11/07/2023 2:06 PM [facility] Emergency [facility] Emergency Room [address] [place] [address] Gilbert Pacheco MD [address] [place] [address] Back Pain Discharge Disposition: Home or Self Care (Routine [...] Sex Assigned at Female 12/15/2018 11:48 AM CREW TRUCK DRIVER Legal Sex Female 8:12 PM CDT Gender Identity Female 12/15/2018 11:48 AM CREW TRUCK DRIVER Sexual Orientation Straight 12/15/2018 11 :21 AM CREW TRUCK DRIVER 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 Not on file Not on file documented as of this encounter Last Filed Vital Signs Vital Sign Reading Time Taken Comments Blood Pressure 123/70 11/07/2023 1:41 PM CREW TRUCK DRIVER Pulse 98 11/07/2023 1:41 PM CREW TRUCK DRIVER Temperature 35.6 ??C (96 ??F) 11/07/2023 1:41 PM CREW TRUCK DRIVER Respiratory Rate 20 11/07/2023 1:41 PM CREW TRUCK DRIVER Oxygen Saturation 99% 11/07/2023 1:41 PM CREW TRUCK DRIVER Inhaled Oxygen Concentration - - Weight 65.8 kg (145 lb) 11/07/2023 1:41 PM CREW TRUCK DRIVER Height 167.6 cm (5' 6 ) 11/07/2023 1:41 PM CREW TRUCK DRIVER Body Mass Index 23.4 11/07/2023 1:41 PM CREW TRUCK DRIVER documented in this encounter Discharge Instructions * Attachments The following attachments cannot be sent through Care Everywhere. * Sacroiliac Joint Pain Discharge Instructions (Niuean) documented in this encounter Medications at Time of Discharge acidiphilus probiotic tablet Take 2 tablets by mouth daily. 07/09/2017 ACYCLOVIR 400 MG tabletIndications :Herpes simplex TAKE 1 TABLET BY MOUTH DAILY 150 tablet 01/09/2022 HYDROcodone-aceta minophen (NORCO) 5-325 MG tabletIndications :Acute Pain < 7 Day Supply Take 1 tablet by mouth every 4 (four) hours as needed for Pain. Indications: Acute Pain < 7 Day Supply 20 tablet 11/07/2023 MAGNESIUM ASPARTATE OR Take 400 mg by mouth daily. multi vitamin/minerals tablet Take 1 tablet by mouth 2 (two) times daily. azithromycin (ZITHROMAX Z-NAVID) 250 MG tabletIndications :Non-recurrent acute serous otitis media of right ear Take 2 tablets by mouth on day one then 1 daily for four days. 6 tablet 03/19/2023 11/13/2023 methylPREDNISolon e, NAVID, (MEDROL DOSEPAK) 4 MG tablet 6 TABLETS ON DAY ONE, 5 TABLETS DAY TWO, 4 TABLETS DAY THREE, 3 TABLETS DAY FOUR, 2 TABLETS DAY FIVE, AND 1 TABLET DAY SIX 1 each 11/07/2023 11/13/2023 ondansetron (ZOFRAN) 4 MG tabletIndications :Non-recurrent acute serous otitis media of right ear,Nausea Take 1 tablet (4 mg total) by mouth every 8 (eight) hours as needed. 20 tablet 03/19/2023 11/13/2023 sertraline (ZOLOFT) 100 MG tabletIndications :Anxiety and depression TAKE 1 AND 1/2 TABLETS DAILY BY MOUTH 45 tablet 10/17/2023 12/09/2023 documented as of this encounter ED Notes * Gilbert Pacheco MD - 11/07/2023 1:47 PM CST Chief Complaint Chief Complaint Patient presents with Back Pain History of Present Illness This patient is a 48yo female with PMH Grave's disease who presents to the ED for evaluation of lowback pain. She describes a one month history of pain to the vicinity of bilateral SI joints. The pain was initially first noticeable upon standing or initiating movements. At some point, it became constant. The pain is so severe now that she cannot rest, and any movement reproduces the pain. She denies any fever, recent trauma, LE weakness/numbness/radiculopathy, saddle anesthesia, urinaryor fecal incontinence, or saddle anesthesia. Medical History ALLERGIES: Review of patient's allergies indicates: Allergen Reactions Penicillins Anaphylaxis Can take Amoxicillin Shellfish Allergy Vomiting MEDICATIONS: Prior to Admission medications Medication Sig Start Date End Date Taking? Authorizing Provider HYDROcodone-acetaminophen (NORCO) 5-325 MG tablet Take 1 tablet by mouth every 4 (four) hours as needed for Pain. Indications: Acute Pain < 7 Day Supply 11/07/23 Yes Gilbert Pacheco MD methylPREDNISolone, NAVID, (MEDROL DOSEPAK) 4 MG tablet 6 TABLETS ON DAY ONE, 5 TABLETS DAY TWO, 4 TABLETS DAY THREE, 3 TABLETS DAY FOUR, 2 TABLETS DAY FIVE, AND 1 TABLET DAY SIX 11/07/23 Yes Gilbert Pacheco MD acidiphilus probiotic tablet Take 2 tablets by mouth daily. 07/09/17 [facility] ACYCLOVIR 400 MG tablet TAKE 1 TABLET BY MOUTH DAILY 3/8/22 Akilah Gardner NP azithromycin (ZITHROMAX Z-NAVID) 250 MG tablet Take 2 tablets by mouth on day one then 1 daily for four days. Patient not taking: Reported on 08/28/2023 03/19/23 VAL Gil MAGNESIUM ASPARTATE OR Take 400 mg by mouth daily. [facility] multi vitamin/minerals tablet Take 1 tablet by mouth 2 (two) times daily. [facility] ondansetron (ZOFRAN) 4 MG tablet Take 1 tablet (4 mg total) by mouth every 8 (eight) hours as needed. Patient not taking: Reported on 08/28/2023 03/19/23 VAL Gil sertraline (ZOLOFT) 100 MG tablet TAKE 1 AND 1/2 TABLETS DAILY BY MOUTH 10/17/23 Josefa Rodríguez PA-C PAST MEDICAL HISTORY: Past Medical History: Diagnosis Date Anxiety Depression Palpitations PAST SURGICAL HISTORY: Past Surgical History: Procedure Laterality Date DENTAL PROCEDURE tooth extraction FAMILY HISTORY: Family History Problem Relation Name Age of Onset Cancer Mother breast Cancer Father prostate Heart Father Anxiety Father SOCIAL HISTORY: Social History Tobacco Use Smoking status: Every Day Packs/day: 0.25 Years: 20.00 Additional pack years: 0.00 Total pack years: 5.00 Types: Cigarettes Start date: 1994 Passive exposure: Current Smokeless tobacco: Never Tobacco comments: trying to cut back Vaping Use Vaping Use: Never used Substance Use Topics Alcohol use: Not Currently Drug use: No Review of Systems Review of Systems Constitutional: Negative. Genitourinary: Negative. Musculoskeletal: Positive for back pain. Neurological: Negative. All other systems reviewed and are negative. Physical Exam Filed Vitals: 11/07/23 1341 BP: 123/70 Pulse: 98 Resp: 20 Temp: 96 ??F (35.6 ??C) TempSrc: Temporal SpO2: 99% Weight: 65.8 kg (145 lb) Height: 1.676 m (5' 6 ) Physical Exam Vitals and nursing note reviewed. Constitutional: Appearance: She is well-developed. Comments: Nontoxic but appears quite uncomfortable. HENT: Head: Normocephalic and atraumatic. Nose: Nose normal. Mouth/Throat: Mouth: Mucous membranes are moist. Eyes: Conjunctiva/sclera: Conjunctivae normal. Pupils: Pupils are equal, round, and reactive to light. Neck: Vascular: No JVD. Trachea: No tracheal deviation. Cardiovascular: Rate and Rhythm: Normal rate. Pulmonary: Effort: Pulmonary effort is normal. Musculoskeletal: General: Normal range of motion. Cervical back: Normal range of motion and neck supple. Skin: General: Skin is warm and dry. Capillary Refill: Capillary refill takes less than 2 seconds. Neurological: General: No focal deficit present. Mental Status: She is alert and oriented to person, place, and time. Sensory: No sensory deficit. Motor: No weakness. Diagnostic Studies / Procedures ELECTROCARDIOGRAMS: No results found for this visit on 11/07/23. LABORATORY STUDIES: No results found for this visit on 11/07/23. IMAGING STUDIES No orders to display ED Course / Medical Decision Making The patient has sacroiliitis. There is no suggestion of more serious pathology. Plan for treatment with a trial of steroids, PRN pain medication, and primary care followup for consideration of pain management referral if the pain persists. Medical Decision Making Problems Addressed: Sacroiliitis (CMS/HCC): acute illness or injury Risk Prescription drug management. Parenteral controlled substances. Clinical Impression Sacroiliitis (CMS/HCC) (Primary) Disposition: Discharge Gilbert Pacheco MD 11/08/23 0947 TRUCK DRIVER * Candy Abraham RN - 11/07/2023 1:45 PM CST 48 year old female in with complaints of lower back pain x 1 month. Patient notes she has been taking ibuprofen and tylenol with no relief. Patient rates pain a 10/10 at this time. TRUCK DRIVER documented in this encounter Plan of Treatment Not on file documented as of this encounter Visit Diagnoses Diagnosis Sacroiliitis (CMS/HCC)- Primary Sacroiliitis, not elsewhere classified documented in this encounter Administered Medications Inactive Administered Medications - up to 3 most recent administrations Medication Order MAR Action Action Date Dose Rate Site HYDROmorphone (DILAUDID) injection 1 mg 1 mg, Intramuscular, Once, 1 dose, On Roseline 11/07/23 at 1400, Administer slowly over at least 2-3 minutes. Given 11/07/2023 1:58 PM CREW TRUCK DRIVER 1 mg Right Deltoid documented in this encounter Active and Recently Administered Medications Times are shown in CREW TRUCK DRIVER. Scheduled Medication Order 11/05/2023 11/06/2023 11/07/2023 HYDROmorphone (DILAUDID) injection 1 mg (COMPLETED) 1 mg, Intramuscular, Once, 1 dose, On Roseline 11/07/23 at 1400, Administer slowly over at least 2-3 minutes. 1358 (Given - Provid er: Kera Payne RN) documented in this encounter Additional Health Concerns Assessment Noted Time PHQ-9 Depression Total Score: 15 023 10:20 AM CREW TRUCK DRIVER documented as of this encounter Care Teams Yard Foreman Relationship Specialty Start Date End Date Josefa Rodríguez PA-C [address] [facility] [address] [place] [address] PCP - General PHYSICIAN AWS ARCHITECT 08/12/23 documented as of this encounter
--- OUTSIDE RECORDS SUMMARY | 2024-10-22 20:34 | XMS_ITS | Encounter Summary ---
Author Organization [facility] Address [address] [place] [address]. [place], [place] [id number] [place] [address] Care Team Providers Care Institutional Cook Name Role Phone Mera Trevizo Primary Care Provider [phone] Encounter Details Date Type Department Care Team (Latest Contact Info) Description 08/03/2022 Travel Social History Tobacco Use Types Packs/Day [...] Sex Assigned at Female 12/15/2018 11:48 AM AUTOMOTIVE GENERAL MANAGER Legal Sex Female 8:12 PM CDT Gender Identity Female 12/15/2018 11:48 AM AUTOMOTIVE GENERAL MANAGER Sexual Orientation Straight 12/15/2018 11 :21 AM AUTOMOTIVE GENERAL MANAGER Occupation Industry Job Start Date Job End Date [employer] Not on file Not on file [...] documented as of this encounter Care Teams Institutional Cook Relationship Specialty [place] [address] [place] [address] PCP - General PHYSICIAN INVESTIGATIVE ANALYST 08/03/22 08/11/23 documented as of this encounter
--- OUTSIDE RECORDS SUMMARY | 2024-10-22 20:34 | XMS_ITS | Encounter Summary ---
Author Organization [facility] Address [address] [place] [address]. [place], [place] [address] [place] [address] Care Team Providers Care Fruit Farmworker Name Role Phone Mera Trevizo Primary Care Provider + [phone] Encounter Details Date Type Department Care Team (Latest Contact Info) Description 09/12/2022 Travel Social History Tobacco Use Types Packs/Day [...] Sex Assigned at Female 12/15/2018 11:48 AM SERVER PROGRAMMER Legal Sex Female 8:12 PM CDT Gender Identity Female 12/15/2018 11:48 AM SERVER PROGRAMMER Sexual Orientation Straight 12/15/2018 11 :21 AM SERVER PROGRAMMER Occupation Industry Job Start Date Job End Date [employer] Not on file Not on file Not on file COVID-19 Exposure Response Date Recorded In the last 10 days, have yo u been in contact with someone who was confirmed or suspected to have Coronavirus/COVID-19? No / Unsure 09/12/2022 7:38 AM SERVER PROGRAMMER documented as of this encounter Plan of Treatment Not on file documented as of this encounter Visit Diagnoses Not on filedocumented in this encounter Additional Health Concerns Infection Onset Date Last Indicated Resolved Time COVID-19 Rule Out 09/12/2022 09/12/2022 09/12/2022 10:26 AM SERVER PROGRAMMER COVID-19 Rule Out 09/12/2022 09/12/2022 09/12/2022 1:04 PM SERVER PROGRAMMER COVID-19 Rule Out 09/12/2022 09/12/2022 09/13/2022 5:41 PM SERVER PROGRAMMER Assessment Noted Time PHQ-9 Depression Total Score: 17 022 10:11 AM CDT documented as of this encounter Care Teams Fruit Farmworker Relationship Specialty [place] [address] [facility] [place] [address] PCP - General PHYSICIAN MINERAL TECHNOLOGIST 08/03/22 08/11/23 documented as of this encounter
--- OUTSIDE RECORDS SUMMARY | 2024-10-22 20:34 | XMS_ITS | Encounter Summary ---
Author Organization [facility] Address [address] [place] [address]. [place], [place] [phone] [place] [address] Care Team Providers Care Home Stager Name Role Phone Mera Trevizo Primary Care Provider [phone] Reason for Visit * Reason Onset Date Comments Medication Request 08/27/2022 Encounter Details Date Type Department Care Team (Late st Contact Info) Description 08/27/2022 Telephone [facility] Family & Internal Medicine [facility] [address] [place] [address] [place] [address] [place] [address] Medication Request Social History Tobacco Use Types Packs/Day Years [...] Sex Assigned at Female 12/15/2018 11:48 AM FIRE INVESTIGATION LIEUTENANT Legal Sex Female 8:12 PM CDT Gender Identity Female 12/15/2018 11:48 AM FIRE INVESTIGATION LIEUTENANT Sexual Orientation Straight 12/15/2018 11 :21 AM FIRE INVESTIGATION LIEUTENANT 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 No / Unsure 08/24/2022 1:02 PM CDT documented as of this encounter Progress Notes * Aidee Wu LPN - 08/27/2022 4:30 PM CDT Pt aware of change V/U * Marian Lynn RN - 08/27/2022 1:56 PM CDT Attempted to contact pt- lmtcb. Referral changed to OUMAR * VAL Gil - 08/27/2022 10:50 AM CDT I am not comfortable treating hyperthyroidism. Sometimes endocrinology disagrees w the plan and it interferes with what they want to try. I would suggest we replace her referral for oumar or find another provider that accepts her insurance. Mera * Marian Lynn RN - 08/27/2022 9:32 AM CDT Do you want her to come in for appt to discuss? * Grace Bridges - 08/27/2022 9:04 AM CDT Patient saw river pilot on 08/24/22, Dr. Lane. He recommended that she contact her pcp to see if Mera would prescribe methimzaole and a beta agueda for graves disease, she states she cannot get into infrastructure solutions architect until 11/20/22. WG- Please call patient back. documented in this encounter Plan of Treatment Not on file documented as of this encounter Visit Diagnoses Not on filedocumented in this encounter Additional Health Concerns Assessment Noted Time PHQ-9 Depression Total Score: 17 022 10:11 AM CDT documented as of this encounter Care Teams Home Stager Relationship Specialty [place] [address] [place] [address] PCP - General PHYSICIAN COMPREHENSIVE ADVISOR 08/03/22 08/11/23 documented as of this encounter
--- OUTSIDE RECORDS SUMMARY | 2024-10-22 20:34 | XMS_ITS | Encounter Summary ---
Author Organization [facility] Address [address] [place] [address]. [place], [place] [id number] [place] [address] Care Team Providers Care Routing Equipment Tender Name Role Phone Mera Trevizo Primary Care Provider + [phone] Reason for Visit * Reason Onset Date Comments Information 09/18/2022 Encounter Details Date Type Department Care Team ([facility] st Contact Info) Description 09/18/[address] [address] Chelsea Ortega, Children'S Program Coordinator Information Social History Tobacco Use Types Packs/Day [...] Sex Assigned at Female 12/15/2018 11:48 AM DOUBLE END TRIMMER Legal Sex Female 8:12 PM CDT Gender Identity Female 12/15/2018 11:48 AM DOUBLE END TRIMMER Sexual Orientation Straight 12/15/2018 11 :21 AM DOUBLE END TRIMMER 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 No / Unsure 09/12/2022 7:38 AM DOUBLE END TRIMMER documented as of this encounter Progress Notes * Chelsea Ortega Children'S Program Coordinator - 09/18/2022 4:27 PM CSTSummary: Heart monitor return Tried reaching out to patient in regards to her returning her kit. No answer so I left her a voicemail to return the call yahs. LE END TRIMMER documented in this encounter Plan of Treatment Not on file documented as of this encounter Visit Diagnoses Not on filedocumented in this encounter Additional Health Concerns Assessment Noted Time PHQ-9 Depression Total Score: 17 022 10:11 AM CDT documented as of this encounter Care Teams Routing Equipment Tender Relationship Specialty [place] [address] [place] [address] PCP - General PHYSICIAN SUPERVISING FLOORPERSON 08/03/22 08/11/23 documented as of this encounter
--- OUTSIDE RECORDS SUMMARY | 2024-10-22 20:34 | XMS_ITS | Encounter Summary ---
Author Organization [facility] Address [address] [place] [address]. [place], [place] [address] [place] [address] Care Team Providers Care Medieval English Literature Professor Name Role Phone Mera Trevizo Primary Care Provider [phone] Reason for Visit * Reason Comments Fever Highest 102 F. Nausea Sx started 11/18 Headache Body Aches Encounter Details Date Type Department Care Team (Late st Contact Info) Description 11/26/2022 10:00 AM DITCHER Office Visit [facility] Family & Internal Medicine [facility] [id number] [place] [phone] [place] Trevizo [place] [id number] [place] [address] Fever (Highest 102 F.); Nausea (Sx started 11/18); Headache; Body Aches Social History Tobacco Use Types Packs/Day Years Used Date Smoking Tobacco: Every Day Cigarettes 0.3 30 Started: 1992 Smokeless Tobacco: Never Tobacco Cessation:Ready to Q [...] Answer Date Recorded Patient Health Questionnaire-2 Score 3 11/26/2022 Education Answer Date Recorded What is the highest level of school you have completed or the highest degree you have received? Some college, no degree 12/15/2018 Comments No Sex and Gender Information Value Date Recorded Sex Assigned at Female 12/15/2018 11:48 AM DITCHER Legal Sex Female 8:12 PM CDT Gender Identity Female 12/15/2018 11:48 AM DITCHER Sexual Orientation Straight 12/15/2018 11 :21 AM DITCHER Occupation Industry Job Start Date Job End Date [employer] Not on file Not on file Not on file COVID-19 Exposure Response Date Recorded In the last 10 days, have yo u been in contact with someone who was confirmed or suspected to have Coronavirus/COVID-19? No / Unsure 11/26/2022 9:58 AM DITCHER documented as of this encounter Last Filed Vital Signs Vital Sign Reading Time Taken Comments Blood Pressure 128/84 11/26/2022 10:15 AM DITCHER Pulse 92 11/26/2022 10:15 AM DITCHER Temperature 37.1 ??C (98.7 ??F) 11/26/2022 10:[address] Respiratory Rate 22 11/26/2022 10:15 AM DITCHER Oxygen Saturation 98% 11/26/2022 10:15 AM DITCHER Inhaled Oxygen Concentration - - Weight 69.4 kg (153 lb) 11/26/2022 10:15 AM DITCHER Height 167.6 cm (5' 6 ) 11/26/2022 10:15 AM DITCHER Body Mass Index 24.69 11/26/2022 10:15 AM DITCHER documented in this encounter Patient Instructions * Attachments The following attachments cannot be sent through Care Everywhere. * Sinusitis, Adult ED (Norwegian) documented in this encounter Progress Notes * VAL Gil - 11/26/2022 10:00 AM CST Images from the original note were not included. _ Reason for Visit: Fever (Highest 102 F.), Nausea (Sx started 11/18), Headache, and Body Aches History of Present Illness: HPI Frances Maguire is a 47-year-old female here for patient or evaluation through the walk-in clinic for symptoms of upper respiratory infection to include nasal congestion, sore throat, and headache. Patient denies symptoms of visual disturbance or vomiting. Patient has noticed a fever. Patient has a deep cough with no wheezing. Patient denies shortness of breath. Patient has no loose stools. Patient has been symptomatic for 8 days and is not improving with symptoms. ROS: Review of Systems Feeling ill. Denies vision or hearing problems. Denies dysphagia, heartburn or indigestion. No dyspnea or chest pain on exertion. No nausea, abdominal pain, change in bowel habits, black or bloody stools. No urinary tract symptoms. No muscle or joint aches or pains. No foot or leg edema. No numbness, tingling,or weakness. No anxiety or depressive symptoms, Sleeping well. No significant weight gain or loss. Positive fatigue. Medications: Outpatient Medications Marked as Taking for the 11/26/22 encounter (Office Visit) with VAL Gil Medication Sig Dispense Refill ??? acidiphilus probiotic tablet Take 2 tablets by mouth daily. ??? ACYCLOVIR 400 MG tablet TAKE 1 TABLET BY MOUTH DAILY 150 tablet 0 ??? doxycycline hyclate (VIBRAMYCIN) 100 MG capsule Take 1 capsule (100 mg total) by mouth 2 (two) times daily for 10 days. 20 capsule 0 ??? MAGNESIUM ASPARTATE OR Take 400 mg by mouth daily. ??? multi vitamin/minerals tablet Take 1 tablet by mouth 2 (two) times daily. ??? sertraline (ZOLOFT) 100 MG tablet TAKE 1 AND 1/2 TABLETS(150 MG) BY MOUTH DAILY 45 tablet 3 Allergies Allergen Reactions ??? Penicillins Anaphylaxis Can take Amoxicillin ??? Shellfish Allergy Vomiting Past Medical History: Diagnosis Date ??? Anxiety ??? Depression ??? Palpitations Past Surgical History: Procedure Laterality Date ??? DENTAL PROCEDURE tooth extraction Social History Tobacco Use ??? Smoking status: Every Day Packs/day: 0.25 Types: Cigarettes Start date: 1994 ??? Smokeless tobacco: Never ??? Tobacco comments: trying to cut back Vaping Use ??? Vaping Use: Never used Substance Use Topics ??? Alcohol use: Not Currently ??? Drug use: No Family History Problem Relation Name Age of Onset ??? Cancer Mother breast ??? Cancer Father prostate ??? Heart Father ??? Anxiety Father Family Status Relation Name Status ??? Mother Alive ??? Father Alive Physical Exam Constitutional: Patient is oriented to person, place, and time. Patient appears well-developed and well-nourished. HENT: Right Ear: External ear normal. Left Ear: External ear normal. Head: Normocephalic. Frontal sinus tenderness Nose: Nose normal. Turbinates are swollen Mouth/Throat: Oropharynx is clear and moist. Positive postnasal drainage Eyes: Pupils are equal, round, and reactive to light. Neck: No JVD present. No thyromegaly present. Cardiovascular: Normal rate, regular rhythm, normal heart [...] View : No data to display. Vitals: 11/26/22 1015 Patient Position: Sitting BP Location: Right arm Cuff size: Adult Regular BP: 128/84 Pulse: 92 Body mass index is 24.69 kg/m??. Assessment and Plan Encounter Diagnose(s) ICD-10-CM ICD-9-CM SNOMED CT(R) 1. Suspected COVID-19 virus infection Z20.822 V01.79 SUSPECTED COVID-19 CORONAVIRUS (COVID-19) INFLUENZA A & B ANTIGEN IA PANEL 2. Acute non-recurrent frontal sinusitis J01.10 461.1 ACUTE FRONTAL SINUSITIS doxycycline hyclate (VIBRAMYCIN) 100 MG capsule Patient states she has an upcoming appt w endocrinology next week. Orders Placed This Encounter ??? doxycycline hyclate (VIBRAMYCIN) 100 MG capsule ? ? CORONAVIRUS (COVID-19) INFLUENZA A & B ANTIGEN IA PANEL Patient was told to push liquids and [...] Portions of this note were dictated using Innovid speech recognition software. Occasional wrong wordor sound-alike substitutions may have occurred due to the inherent limitations of voice recognition software. Please read the chart carefully and recognize, using context, where the substitutions may have occurred. Mera Trevizo PA-C evaluated and Dr Yrn Padilla reviewed and agrees with plan. Cosigned by Yrn Padilla MD at 11/26/2022 7:41 PM DITCHER HER HER documented in this encounter Plan of Treatment Not on file documented as of this encounter Procedures Procedure Name Priority Date/Time Associated Diagnosis Comments CORONAVIRUS (COVID-19) INFLUENZA A & B ANTIGEN IA PANEL Routine 11/26/2022 Suspected COVID-19 virus infection documented in this encounter Results * CORONAVIRUS (COVID-19) INFLUENZA A & B ANTIGEN IA PANEL (11/26/2022) CORONAVIRUS ANTIGEN IA NEGATIVE NEGATIVE [id number], [place] INFLUENZA A NEGATIVE NEGATIVE [id number], [place] INFLUENZA B NEGATIVE NEGATIVE [id number] Internal Control: VALID VALID [id number], [facility] NASAL STRUCTURE / Unknown 11/26/2022 us Mera NEAL MICROBIOLOGY - GENERAL ORDER ELIZABETH Final Result [id number] [address], [place] [address] [place] [address], [place] [phone] documented in this encounter Visit Diagnoses Diagnosis Suspected COVID-19 virus infection- Primary Acute non-recurrent frontal sinusitis documented in this encounter Additional Health Concerns Infection Onset Date Last Indicated Resolved Time COVID-19 Rule Out 11/26/2022 11/26/2022 11/26/2022 10:46 AM DITCHER Assessment Noted Time PHQ-9 Depression Total Score: 15 023 10:20 AM DITCHER documented as of this encounter Care Teams Medieval English Literature Professor Relationship Specialty [place] [address] [place] [address] PCP - General PHYSICIAN SOCK BOARDER 08/03/22 08/11/23 documented as of this encounter
--- OUTSIDE RECORDS SUMMARY | 2024-10-22 20:34 | XMS_ITS | Encounter Summary ---
Author Organization [facility] Address [address] [place] [address]. [place], [place] [address] [place] [address] Care Team Providers Care Machinery Dismantler Name Role Phone Josefa Rodríguez PA-C Primary Care Provider [phone] Reason for Referral * Imaging (Routine) - Closed Specialty Diagnoses / Procedures Referred By Hussein t Referred To Contact CARDIOLOGY Diagnoses Palpitations Procedures CLINIC - OUTPATIENT EVENT RECORDER (ECG) UP TO 30 DAYS COMPLETE (Holter) Marcela Lane MD [facility]. [address] [address] Phone: tel: fax: Referral ID Status Reason Start Date Expiration Date Visits Re quested Visits Authorized [id number] Closed 09/06/2023 11/03/2023 1 1 Encounter Details Date Type Department Care Team (Late st Contact Info) Description 09/06/2023 Orders Only [facility] [address] [place], [place] [address] Marcela Lane MD [facility] [address] [place], [place] [id number] Social History Tobacco Use Types Packs/Day Years [...] Sex Assigned at Female 12/15/2018 11:48 AM SQUADRON WORKER Legal Sex Female 8:12 PM CDT Gender Identity Female 12/15/2018 11:48 AM SQUADRON WORKER Sexual Orientation Straight 12/15/2018 11 :21 AM SQUADRON WORKER Occupation Industry Job Start Date Job End Date [employer] Not on file Not on file Not on file documented as of this encounter Plan of Treatment Scheduled Orders Name Type Priority Associated Diagnoses Orde r Schedule CLINIC - OUTPATIENT EVENT RECORDER (ECG) UP TO 30 DAYS COMPLETE (Holter) EKG-NonRad Routine Palpitations Expected: 09/06/2023 (Approximate), Expires: 09/06/2024 documented as of this encounter Visit Diagnoses Diagnosis Palpitations- Primary documented in this encounter Additional Health Concerns Assessment Noted Time PHQ-9 Depression Total Score: 15 023 10:20 AM SQUADRON WORKER documented as of this encounter Care Teams Machinery Dismantler Relationship Specialty Start Date End Date Josefa Rodríguez PA-C [address] [facility] [address] [place] [address] PCP - General PHYSICIAN SUPERINTENDENT MAINTENANCE 08/12/23 documented as of this encounter
--- OUTSIDE RECORDS SUMMARY | 2024-10-22 20:34 | XMS_ITS | Encounter Summary ---
Author Organization [facility] Address [address] [place] [address]. [place], [place] [address] [place] [address] Care Team Providers Care Athletic Turf Worker Name Role Phone Josefa Rodríguez PA-C Primary Care Provider [phone] Encounter Details Date Type Department Care Team (Latest Contact Info) Description 08/28/2023 Travel Social History Tobacco Use Types Packs/Day [...] Sex Assigned at Female 12/15/2018 11:48 AM SOAP DRIER TENDER Legal Sex Female 8:12 PM CDT Gender Identity Female 12/15/2018 11:48 AM SOAP DRIER TENDER Sexual Orientation Straight 12/15/2018 11 :21 AM SOAP DRIER TENDER Occupation Industry Job Start Date Job End Date [employer] Not on file Not on file Not on file documented as of this encounter Plan of Treatment Not on file documented as of this encounter Visit Diagnoses Not on filedocumented in this encounter Additional Health Concerns Assessment Noted Time PHQ-9 Depression Total Score: 15 11/26/ 023 10:20 AM SOAP DRIER TENDER documented as of this encounter Care Teams Athletic Turf Worker Relationship Specialty Start Date End Date Josefa Rodríguez PA-C [address] [place] [address] PCP - General PHYSICIAN CHRONIC MANAGER 08/12/23 documented as of this encounter
--- OUTSIDE RECORDS SUMMARY | 2024-10-22 20:34 | XMS_ITS | Encounter Summary ---
Author Organization [facility] Address [address] [place] [address]. [place], [place] [address] [place] [address] Care Team Providers Care Cook Specialty Name Role Phone Mera Trevizo Primary Care Provider [phone] Reason for Visit * Reason Onset Date Comments Other 08/03/2022 Encounter Details Date Type Department Care Team (Late st Contact Info) Description 08/03/[address] [address] [place] [address] [place], [place] [phone] Other Social History Tobacco Use Types Packs/Day Years [...] Sex Assigned at Female 12/15/2018 11:48 AM OFFICE MANAGER Legal Sex Female 8:12 PM CDT Gender Identity Female 12/15/2018 11:48 AM OFFICE MANAGER Sexual Orientation Straight 12/15/2018 11 :21 AM OFFICE MANAGER 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 No / Unsure 08/03/2022 10:00 AM CDT documented as of this encounter Progress Notes * Cindy Powell - 08/03/2022 4:54 PM CDT Left message on vm for patient to schedule cardiology consult per PCP. documented in this encounter Plan of Treatment Not on file documented as of this encounter Visit Diagnoses Not on filedocumented in this encounter Additional Health Concerns Assessment Noted Time PHQ-9 Depression Total Score: 17 022 10:11 AM CDT documented as of this encounter Care Teams Cook Specialty Relationship Specialty [place] [address] [place] [address] PCP - General PHYSICIAN PLODDING OPERATOR 08/03/22 08/11/23 documented as of this encounter
--- OUTSIDE RECORDS SUMMARY | 2024-10-22 20:34 | XMS_ITS | Encounter Summary ---
Author Organization [facility] Address [address] [place] [address]. [place], [place] [address] [place] [address] Care Team Providers Care Whip Sawyer Name Role Phone Josefa Rodríguez PA-C Primary Care Provider [phone] Reason for Visit * Reason Onset Date Comments Schedule Test 08/29/2023 30 DAY EM Encounter Details Date Type Department Care Team (Late st Contact Info) Description 08/29/2023 Telephone [facility] [facility], [address] [address] Josefa Rodríguez PA-C [address] [facility] [address] [place] [address] Schedule Test (30 DAY EM) Social History Tobacco Use Types Packs/Day Years [...] Sex Assigned at Female 12/15/2018 11:48 AM HAND CULTIVATOR Legal Sex Female 8:12 PM CDT Gender Identity Female 12/15/2018 11:48 AM HAND CULTIVATOR Sexual Orientation Straight 12/15/2018 11 :21 AM HAND CULTIVATOR 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 Not on file Not on file documented as of this encounter Progress Notes * Juliana Callaway - 08/29/2023 12:09 PM CDT LVM TO PLEASE CALL TO SCHEDULE 30 DAY EM/L WRONGE/PALPITATIONS documented in this encounter Plan of Treatment Not on file documented as of this encounter Visit Diagnoses Not on filedocumented in this encounter Additional Health Concerns Assessment Noted Time PHQ-9 Depression Total Score: 15 023 10:20 AM HAND CULTIVATOR documented as of this encounter Care Teams Whip Sawyer Relationship Specialty Start Date End Date Josefa Rodríguez PA-C [address] [facility] [address] [place] [address] PCP - General PHYSICIAN THREE DIMENSIONAL ART INSTRUCTOR 08/12/23 documented as of this encounter
--- OUTSIDE RECORDS SUMMARY | 2024-10-22 20:34 | XMS_ITS | Encounter Summary ---
Author Organization [facility] Address [address] [place] [address]. [place], [place] [address] [place] [address] Care Team Providers Care Clinical Trials Assistant Name Role Phone Mera Trevizo Primary Care Provider + [phone] Reason for Referral * Consultation (Urgent) - Canceled Specialty Diagnoses / Procedures Referred By Contnikhil t Referred To Contact ENDOCRINOLOGY Diagnoses Hyperthyroidism Procedures OFFICE/OUTPT VISIT,NEW,LEVL III OFFICE/OUTPT VISIT,NEW,LEVL IV OFFICE/OUTPT VISIT,NEW,LEVL V OFFICE/OUTPT VISIT,EST,LEVL III OFFICE/OUTPT VISIT,EST,LEVL IV OFFICE/OUTPT VISIT,[place] [address] [place] [address] Phone: tel: fax: [facility] Diabetes and Endocrinology - [place] [address] Phone: tel: fax: Referral ID Status Reason Start Date Expiration Date V isits Requested Visits Authorized [id number] Canceled 09/12/2022 10/13/2023 100 100 Scheduling Instructions Patient had previous referral but is having advancing symptoms . Would like to see if she can be seen sooner ER FISH Reason for Visit * Reason Comments Fever Sob, chills, tachy 1 20 at rest, chest pain at times. Sx today Encounter Details Date Type Department Care Team (Late st Contact Info) Description 09/12/2022 3:40 PM DIPPER FISH Telemedicine [facility] Family & Internal Medicine [facility] [address] [place] [address] [place] [address] [place] [address] Fever (Sob, chills, tachy 120 at rest, chest pain at times. /Sx today) Social History Tobacco Use Types Packs/Day Years [...] Sex Assigned at Female 12/15/2018 11:48 AM DIPPER FISH Legal Sex Female 8:12 PM CDT Gender Identity Female 12/15/2018 11:48 AM DIPPER FISH Sexual Orientation Straight 12/15/2018 11 :21 AM DIPPER FISH Occupation Industry Job Start Date Job End Date [facility]ly [employer] Not on file Not on file Not on file COVID-19 Exposure Response Date Recorded In the last 10 days, have yo u been in contact with someone who was confirmed or suspected to have Coronavirus/COVID-19? No / Unsure 09/12/2022 7:38 AM DIPPER FISH documented as of this encounter Progress Notes * VAL Gil - 09/12/2022 3:40 PM CST Images from the original note were not included. _ Reason for Visit: Fever (Sob, chills, tachy 120 at rest, chest pain at times. /Sx today) I introduced and identified myself, received verbal consent from the patient to proceed with this video visit and made the patient aware that the same confidentiality and health information systems technician practices apply. The patient joined the video visit from Home. I completed the virtual visit from Home. [facility] with this visit MA: June . Total Time Spent in Minutes: 24 minutes History of Present Illness: HPI rFances Maguire is a 46-year-old female here for Video visit thru [facility] for evaluation of ongoing symptoms of feeling like her heart is racing. Anxious overwhelmed felling. She is also noticing jitteriness she feels like this is her thyroid causing her symptoms. In addition. the last couple od days started with fever 100-102, sore throat, head congestion and feeling achy. She denies any diarrhea or vomiting she has been feeling more during the last couple ofdays. She has been having a sorein her throat. ROS: Review of Systems Feeling ill denies headaches, vision or hearing problems. No recent colds or flus, denies symptoms suggestive of allergies. Denies dysphagia, heartburn or indigestion. No dyspnea or chest pain on exertion. No nausea, abdominal pain, change in bowel habits, black or bloody stools. No urinary tract symptoms. No muscle or joint aches or pains. No foot or leg edema. No numbness, tingling,or weakness.No anxiety or depressive symptoms, Sleeping well. No significant weight gain or loss. Positive fatigue. Medications: Outpatient Medications Marked as Taking for the 09/12/22 encounter (Telemedicine) with VAL Gil Medication Sig Dispense Refill ??? acidiphilus probiotic tablet Take 2 tablets by mouth daily. ??? ACYCLOVIR 400 MG tablet TAKE 1 TABLET BY MOUTH DAILY 150 tablet 0 ??? azithromycin (ZITHROMAX) 250 MG tablet Take 2 tablets by mouth on day one then 1 daily for fourdays. 6 tablet 0 ??? MAGNESIUM ASPARTATE OR Take 400 [...] Social History Tobacco Use ??? Smoking status: Current Every Day Smoker Packs/day: 0.25 Types: Cigarettes Start date: 1994 ??? Smokeless tobacco: Never Used ??? Tobacco comment: trying to cut back Vaping Use ??? Vaping Use: Never used Substance Use Topics ??? Alcohol use: Yes ??? Drug use: No Family History Problem Relation Name Age of Onset ??? Cancer Mother breast ??? Cancer Father prostate ??? Heart Father ??? Anxiety Father Family Status Relation Name Status ??? Mother Alive ??? Father Alive Physical Exam Constitutional: Patient is oriented to person, place, and time. Patient appears well-developed and well-nourished. Neurological: Patient is alert and oriented to person, place, and time. Skin: No rash noted. No erythema. Psychiatric: Patient has a normal mood and affect. The behavior is normal. Thought content normal. No flowsheet data found. There were no vitals filed for this visit. There is no height or weight on file to calculate BMI. Assessment and Plan Encounter Diagnose(s) ICD-10-CM ICD-9-CM SNOMED CT(R) 1. Palpitations R00.2 785.1 PALPITATIONS COMPREHENSIVE METABOLIC PANEL THYROID STIM HORMONE, TSH THYROXINE, FREE (FT4) VENIPUNC ARM DRAW 2. Lipid screening Z13.220 V77.91 PATIENT ENCOUNTER STATUS LIPID PANEL VENIPUNC ARM DRAW 3. Other fatigue R53.83 780.79 FATIGUE CBC W/DIFF AUTOMATED CORONAVIRUS (COVID-19) INFLUENZA A & B ANTIGEN IA PANEL VENIPUNC ARM DRAW 4. Sore throat J02.9 462 SORE THROAT SYMPTOM CBC W/DIFF AUTOMATED RAPID STREP A azithromycin (ZITHROMAX) 250 MG tablet 5. Upper respiratory tract infection, unspecified type J06.9 465.9 UPPER RESPIRATORY INFECTION CORONAVIRUS (COVID-19) INFLUENZA A & B ANTIGEN IA PANEL azithromycin (ZITHROMAX) 250 MG tablet 6. Suspected COVID-19 virus infection Z20.822 V01.79 SUSPECTED COVID-19 CORONAVIRUS (COVID-19) INFLUENZA A & B ANTIGEN IA PANEL 7. Abnormal TSH R79.89 790.6 THYROID HORMONE TESTS ABNORMAL THYROID STIM HORMONE, TSH THYROXINE, FREE (FT4) VENIPUNC ARM DRAW SED RATE, ERYTHROCYTE (ESR) 8. Hyperthyroidism E05.90 242.90 HYPERTHYROIDISM Ambulatory referral to Endocrinology (OTHER) I am going try to move her endocrinology appointment to as soon as possible. We will check her for COVID and flu since she is got new onset symptoms of upper respiratory. We will recheck some labs. If her symptoms advance she should use the emergency room. Orders Placed This Encounter ??? VENIPUNC ARM DRAW ??? CBC W/DIFF AUTOMATED ??? COMPREHENSIVE METABOLIC PANEL ??? LIPID PANEL ??? THYROID STIM HORMONE, TSH ??? THYROXINE, FREE (FT4) ??? SED RATE, ERYTHROCYTE (ESR) ??? Ambulatory referral to Endocrinology (OTHER) ??? azithromycin (ZITHROMAX) 250 MG tablet ? ? CORONAVIRUS (COVID-19) INFLUENZA A & B ANTIGEN IA PANEL ??? RAPID STREP A I spent 28 minutes obtaining history and performing exam. Time [...] Portions of this note were dictated using [employer] speech recognition software. Occasional wrong wordor sound-alike substitutions may have occurred due to the inherent limitations of voice recognition software. Please read the chart carefully and recognize, using context, where the substitutions may have occurred. Mera Trevizo PA-C evaluated and Dr Yrn Padilla reviewed and agrees with plan. Cosigned by Yrn Padilla MD at 09/13/2022 7:08 AM DIPPER FISH ER FISH ER FISH documented in this encounter Plan of Treatment Scheduled Referrals Name Type Priority Associated Diagnoses Orde r Schedule Ambulatory referral to Endocrinology (OTHER) Referral OUMAR Hyperthyroidism Ordered: 09/12/2022 documented as of this encounter Procedures Procedure Name Priority Date/Time Associated Diagnosis Comments VENIPUNC ARM DRAW Routine 09/12/2022 10: 30 AM DIPPER FISH Palpitations Lipid screening Other fatigue Abnormal TSH CORONAVIRUS (COVID-19) INFLUENZA A & B ANTIGEN IA PANEL Routine 09/12/2022 Other fatigue Upper respiratory tract infection, unspecified type Suspected COVID-19 virus infection RAPID STREP A Routine 09/12/2022 Sore throat documented in this encounter Results * (ABNORMAL) THYROXINE, FREE (FT4) (09/12/2022 10:24 AM DIPPER FISH) FREE T4 3.11(H) 0.76 - 1.46 NG/DL 09/12/2022 2:[address] [facility] 09/12/2022 10:2 4 AM DIPPER FISH us [facility] Final Result Performing Organization Address [facility] Co de Phone Number [facility] [address] [place] [address], [place] [phone] * (ABNORMAL) THYROID STIM HORMONE, TSH (09/12/2022 10:24 AM DIPPER FISH) TSH 0.002(L) 0.358 - 3.74 uIU/ML 09/12/2022 2:[address] [facility] Comment: HIGH DOSES OF BIOTIN MAY INTERFERE WITH THIS TEST RESULT. CORRELATION TO CLINICAL HISTORY AND PRESENTATION RECOMMENDED. 09/12/2022 10:2 4 AM DIPPER FISH us [facility] Final Result Performing Organization Address City/[facility]/ZIP Co de Phone Number [facility] [address] [place] [address], * (ABNORMAL) LIPID PANEL (09/12/2022 10:24 AM [facility]) [facility] Signature CHOLESTEROL 102 <200.0 MG/DL 09/12/2022 2:09 PM [facility] TRIGLYCERIDES 168(H) <150 MG/DL 09/12/2022 2:09 PM [facility] HDL 42 >40.0 MG/DL 09/12/2022 2:09 PM [facility] LDL (CALCULATED) 26 <100 MG/DL 09/12/2022 2:09 PM [facility] NON HDL CHOLESTEROL 60 <130 MG/DL 09/12/2022 2:09 PM [facility] CHOL/HDL RATIO 2.4 0.0 - 4.5 09/12/2022 2:09 PM [facility] VLDL CALCULATION 34 5 - 55 MG/DL 09/12/2022 2:09 PM [facility] LIPID INTERPRETATION 09/12/2022 2:09 PM [facility] Comment: NIH CONCENSUS REPORT RECOMMENDATIONS: ?ADULT [...] ? >=160 ?>=130 09/12/2022 10:2 4 AM DIPPER FISH us [facility] Final Result [facility] [address] [place] [address], * (ABNORMAL) COMPREHENSIVE METABOLIC PANEL (09/12/2022 10:24 AM DIPPER FISH) GLUCOSE 123(H) 70 - 99 MG/DL 09/12/2022 2:09 PM [facility] BUN 9 7 - 18 MG/DL 09/12/2022 2:09 PM [facility] CREATININE S/P/B 0.46(L) 0.55 - 1.02 MG/DL 09/12/2022 2:09 PM [facility] SODIUM S/P/B 142 136 - 145 MMOL/L 09/12/2022 2:09 PM [facility] POTASSIUM S/P/B 4.0 3.5 - 5.1 MMOL/L 09/12/2022 2:09 PM [facility] CHLORIDE S/P/B 107 100 - 108 MMOL/L 09/12/2022 2:09 PM [facility] CO2 27.7 21 - 32 MMOL/L 09/12/2022 2:09 PM [facility] CALCIUM S/P/B 8.7 8.5 - 10.1 MG/DL 09/12/2022 2:09 PM [facility] BILIRUBIN TOTAL S/P/B 0.7 0.2 - 1.2 MG/DL 09/12/2022 2:09 PM [facility] TOTAL PROTEIN S/P/B 6.2(L) 6.4 - 8.2 G/DL 09/12/2022 2:09 PM [facility] ALBUMIN S/P/B 3.3(L) 3.4 - 5.0 G/DL 09/12/2022 2:09 PM [facility] AST 18 15 - 37 U/L 09/12/2022 2:09 PM [facility] ALT 29 14 - 55 U/L 09/12/2022 2:09 PM [facility] ALKALINE PHOSPHATASE S/P/B 94 50 - 136 U/L 09/12/2022 2:09 PM [facility] ANION GAP 7.3 5 - 15 MMOL/L 09/12/2022 2:09 PM [facility] BUN CREATININE RATIO 19.6 6 - 26 09/12/2022 2:09 PM [facility] A/G RATIO 1.1 1.0 - 2.0 RATIO 09/12/2022 2:09 PM [facility] GFR ESTIMATE >90 >90 ML/MIN/1.7 3 M2 09/12/2022 2:09 PM [facility] Comment: NOTE: eGFR is not calculated for patients <18 years of age. This is an estimated GFR calculation using the new CKD EPI creatinine equation without race and so does not require a correction factor for race. This estimated GFR should not be used for calculating drug doses. 09/12/2022 10:2 4 AM DIPPER FISH [facility] Final Result [facility] [address] [place] [address], * (ABNORMAL) CBC W/DIFF AUTOMATED (09/12/2022 10:24 AM DIPPER FISH) WBC 4.6 4.4 - 11.0 x10'3/uL 09/12/2022 1:10 PM [facility] RBC 4.13(L) 4.50 - 5.10 x10'6/uL 09/12/2022 1:10 PM [facility] HGB 12.2(L) 12.3 - 15.3 G/DL 09/12/2022 1:10 PM [facility] HCT 36.8 35.9 - 44.6 % 09/12/2022 1:10 PM [facility] MCV 89.1 80.0 - 96.0 FL 09/12/2022 1:10 PM [facility] MCH 29.5 25.3 - 30.9 PG 09/12/2022 1:10 PM [facility] MCHC 33.2 31.0 - 34.1 G/DL 09/12/2022 1:10 PM [facility] RDW 12.3(L) 12.4 - 15.1 % 09/12/2022 1:10 PM [facility] PLT 132(L) 151 - 353 x10'3/uL 09/12/2022 1:10 PM [facility] MPV 12.3(H) 9.6 - 12.0 FL 09/12/2022 1:10 PM [facility] RBC MORPHOLOGY NORMAL 09/12/2022 1:10 PM [facility] PLT MORPH. NORMAL 09/12/2022 1:10 PM [facility] WBC MORPHOLOGY NORMAL 09/12/2022 1:10 PM [facility] LYMPHOCYTES % 32.0 15.8 - 45.0 % 09/12/2022 1:10 PM [facility] NEUTROPHILS % 56.0 42.1 - 71.9 % 09/12/2022 1:10 PM [facility] MONOCYTES % 9.6 5.7 - 12.5 % 09/12/2022 1:10 PM [facility] EOSINOPHILS 1.8 0.0 - 5.6 % 09/12/2022 1:10 PM [facility] BASOPHILS 0.4 0.0 - 1.3 % 09/12/2022 1:10 PM [facility] ABS. NEUTROPHILS 2.55 1.40 - 6.00 x10'3/uL 09/12/2022 1:10 PM [facility] IMMATURE GRANS % 0.2 0.0 - 0.5 % 09/12/2022 1:10 PM [facility] ABS. LYMPHOCYTES 1.46 0.80 - 4.70 x10'3/uL 09/12/2022 1:10 PM [facility] 09/12/2022 10:2 4 AM DIPPER FISH us Mera D Billhartz PA LABORATORY Final Result [facility] [address] [place] [address], [place] [phone] * RAPID STREP A (09/12/2022) RAPID STREP TEST NEGATIVE NEGATIVE [id number], [place] Internal Control: VALID VALID [id number], [place] STRUCTURE OF ANTERIOR PORTION OF NECK / Unknown 09/12/2022 us [facility] MICROBIOLOGY - GENERAL ORDER ELIZABETH Final Result Performing Organization Address [facility] Co de Phone Number [phone], [place] [address] [place] [address], [place] [phone] * CORONAVIRUS (COVID-19) INFLUENZA A & B ANTIGEN IA PANEL (09/12/2022) CORONAVIRUS ANTIGEN IA NEGATIVE NEGATIVE [id number], [place] INFLUENZA A NEGATIVE NEGATIVE [id number] INFLU[facility] B NEGATIVE NEGATIVE [id number] Internal Control: VALID VALID [id number], [place] NASAL STRUCTURE / Unknown 09/12/2022 us Mera [facility] MICROBIOLOGY - GENERAL ORDER ELIZABETH Final Result [id number], [place] [address] [place] [address], [place] [phone] documented in this encounter Visit Diagnoses Diagnosis Palpitations- Primary Lipid screening Screening for lipoid disorders Other fatigue Sore throat Acute pharyngitis Upper respiratory tract infection, unspecified type Suspected COVID-19 virus infection Abnormal TSH Other abnormal clinical finding Hyperthyroidism Thyrotoxicosis without mention of goiter or other cause, without mention of thyrotoxic crisis or storm documented in this encounter Additional Health Concerns Infection Onset Date Last Indicated Resolved Time COVID-19 Rule Out 09/12/2022 09/12/2022 09/13/2022 5:41 PM DIPPER FISH Assessment Noted Time PHQ-9 Depression Total Score: 17 022 10:11 AM CDT documented as of this encounter Care Teams Clinical Trials Assistant Relationship Specialty [place] [address] [place] [address] PCP - General PHYSICIAN PROCEDURES NURSE 08/03/22 08/11/23 documented as of this encounter
--- OUTSIDE RECORDS SUMMARY | 2024-10-22 20:34 | XMS_ITS | Encounter Summary ---
Author Organization [facility] Address [address] [place] [address]. [place] [id number] [place] [address] Care Team Providers Care Supervisor Propellant Charge Loading Name Role Phone Mera Trevizo Primary Care Provider [phone] Josefa Rodríguez PA-C Primary Care Provider [phone] Encounter Details Date Type Department Care Team (Late st Contact Info) Description 06/28/2023 PaperShare Message Enc [facility] Medical Group Family & Internal Medicine [facility] [address] [place] [phone] [facility], [facility] Provider Estalbish with a new provider Social History Tobacco Use Types Packs/Day Years [...] Sex Assigned at Female 12/15/2018 11:48 AM MEDICAL STAFFING COORDINATOR Legal Sex Female 8:12 PM CDT Gender Identity Female 12/15/2018 11:48 AM MEDICAL STAFFING COORDINATOR Sexual Orientation Straight 12/15/2018 11 :21 AM MEDICAL STAFFING COORDINATOR 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 Not on file Not on file documented as of this encounter Plan of Treatment Not on file documented as of this encounter Visit Diagnoses Not on filedocumented in this encounter Additional Health Concerns Assessment Noted Time PHQ-9 Depression Total Score: 15 023 10:20 AM MEDICAL STAFFING COORDINATOR documented as of this encounter Care Teams Supervisor Propellant Charge Loading Relationship Specialty [place] [address] [place] [address] PCP - General PHYSICIAN LIFE SCIENCE TECHNICIAN 08/03/22 08/11/23 Josefa Rodríguez PA-C [address] [address] PCP - General PHYSICIAN LIFE SCIENCE TECHNICIAN 08/12/23 documented as of this encounter
--- OUTSIDE RECORDS SUMMARY | 2024-10-22 20:34 | XMS_ITS | Encounter Summary ---
Author Organization [facility] Address [address] [place] [address]. [place], [place] [address] [place] [address] Care Team Providers Care Decorative Engraver Name Role Phone Akilah Gardner NP Primary Care Provider Unavailabl e Encounter Details Date Type Department Care Team (Latest Contact Info) Description 02/13/2022 Travel Social History Tobacco Use Types Packs/Day [...] Sex Assigned at Female 12/15/2018 11:48 AM FRIT MAKER Legal Sex Female 8:12 PM CDT Gender Identity Female 12/15/2018 11:48 AM FRIT MAKER Sexual Orientation Straight 12/15/2018 11 :21 AM FRIT MAKER Occupation Industry Job Start Date Job End Date [employer] Not on file Not on file Not on file COVID-19 Exposure Response Date Recorded In the last 10 days, have yo u been in contact with someone who was confirmed or suspected to have Coronavirus/COVID-19? No / Unsure 02/13/2022 12:59 AM CDT documented as of this encounter Plan of Treatment Not on file documented as of this encounter Visit Diagnoses Not on filedocumented in this encounter Additional Health Concerns Assessment Noted Time PHQ-9 Depression Total Score: 14 021 8:58 AM CDT documented as of this encounter Care Teams Decorative Engraver Relationship Specialty Start Date End Date Akilah Gardner, SURTASS ANALYST PCP - General NURSE PRACTITIONER 09/01/21 08/02/22 documented as of this encounter
--- OUTSIDE RECORDS SUMMARY | 2024-10-22 20:34 | XMS_ITS | Encounter Summary ---
Author Organization [facility] Address [address] [place] [address]. [place], [place] [id number] [place] [address] Care Team Providers Care Replenishment Buyer Name Role Phone Mera Trevizo Primary Care Provider [phone] Encounter Details Date Type Department Care Team (Latest Contact Info) Description 03/12/2023 1:07 PM CDT - 03/12/2023 11:59 PM [address] [facility] Encounter [facility] [address] [place] [address] [place] [address] [place], [place] [id number] Discharge Disposition: Home or Self Care (Routine [...] Sex Assigned at Female 12/15/2018 11:48 AM TEST DESK SUPERVISOR Legal Sex Female 8:12 PM CDT Gender Identity Female 12/15/2018 11:48 AM TEST DESK SUPERVISOR Sexual Orientation Straight 12/15/2018 11 :21 AM TEST DESK SUPERVISOR 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 No / Unsure 03/12/2023 9:27 AM CDT documented as of this encounter Medications at Time of Discharge acidiphilus probiotic tablet Take 2 tablets by mouth daily. 07/09/2017 ACYCLOVIR 400 MG tabletIndications :Herpes simplex TAKE 1 TABLET BY MOUTH DAILY 150 tablet 01/09/2022 MAGNESIUM ASPARTATE OR Take 400 mg by mouth daily. multi vitamin/minerals tablet Take 1 tablet by mouth 2 (two) times daily. sertraline (ZOLOFT) 100 MG tabletIndications :Anxiety and depression TAKE 1 AND 1/2 TABLETS(150 MG) BY MOUTH DAILY 45 tablet 3 01/01/2023 06/26/2023 documented as of this encounter Plan of Treatment Not on file documented as of this encounter Procedures Procedure Name Priority Date/Time Associated Diagnosis Comments TSH W/REFLEX Routine 03/12/2023 9:46 AM CDT Abnormal TSH THYROXINE, FREE (FT4) Routine 03/12/2023 9:46 AM CDT Abnormal TSH documented in this encounter Results * (ABNORMAL) TSH W/REFLEX (03/12/2023 9:46 AM CDT) TSH <0.007(L) 0.358 - 3.74 uIU/ML 03/12/2023 3:18 PM CDT [facility] Comment: HIGH DOSES OF BIOTIN MAY INTERFERE WITH THIS TEST RESULT. CORRELATION TO CLINICAL HISTORY AND PRESENTATION RECOMMENDED. 03/12/2023 9:46 AM CDT [facility] Final Result Performing Organization Address [facility] Co de Phone Number [facility] [address] [place] [address], [place] [phone] * (ABNORMAL) THYROXINE, FREE (FT4) (03/12/2023 9:46 AM CDT) FREE T4 3.74(H) 0.76 - 1.46 NG/DL 03/12/2023 3:18 PM CDT [facility] 03/12/2023 9:46 AM CDT [facility] Final Result Performing Organization Address [facility] Co de Phone Number [facility] [address] [place] [address], [place] [phone] documented in this encounter Visit Diagnoses Diagnosis Abnormal TSH Other abnormal clinical finding documented in this encounter Additional Health Concerns Assessment Noted Time PHQ-9 Depression Total Score: 15 023 10:20 AM TEST DESK SUPERVISOR documented as of this encounter Care Teams Replenishment Buyer Relationship Specialty Start [place] [address] [place] [address] PCP - General PHYSICIAN RECORDS ADMINISTRATOR 08/03/22 08/11/23 documented as of this encounter
--- OUTSIDE RECORDS SUMMARY | 2024-10-22 20:34 | XMS_ITS | Encounter Summary ---
Author Organization [facility] Address [address] [place] [address]. [place], [place] [address] [place] [address] Care Team Providers Care Computer Numeric Control Setter Name Role Phone Josefa Rodríguez PA-C Primary Care Provider [phone] Reason for Visit * Reason Onset Date Comments Holter Monitor 09/11/2023 * Imaging (Routine) - Closed Specialty Diagnoses / Procedures Referred By Hussein marrufo Referred To Contact CARDIOLOGY Diagnoses Palpitations Procedures CLINIC - OUTPATIENT EVENT RECORDER (ECG) UP TO 30 DAYS COMPLETE (Holter) Marcela Lane MD [facility]. [facility] [address] [place] [address] Phone: tel: fax: Referral ID Status Reason Start Date Expiration Date Visits Re quested Visits Authorized [id number] Closed 09/06/2023 11/03/2023 1 1 Encounter Details Date Type Department Care Team (Late st Contact Info) Description 09/11/2023 11:15 AM SURVEILLANCE SYSTEMS ANALYST Telephone [facility] [address] [place], [place] [phone] Marcela Lane MD [facility]. [facility] [address] [place] [address] Holter Monitor Social History Tobacco Use Types Packs/Day Years [...] Sex Assigned at Female 12/15/2018 11:48 AM SURVEILLANCE SYSTEMS ANALYST Legal Sex Female 8:12 PM CDT Gender Identity Female 12/15/2018 11:48 AM SURVEILLANCE SYSTEMS ANALYST Sexual Orientation Straight 12/15/2018 11 :21 AM SURVEILLANCE SYSTEMS ANALYST Occupation Industry Job Start Date Job End Date Formerly [facility] Not on file Not on file Not on file documented as of this encounter Progress Notes * Cole Hernandez - 10/25/2023 9:15 AM CST We received the kit back and upon reviewing the information to do the EOS report, there is not enough reliable data to do an EOS report. Suggest repeating the monitor. Please let us know if you want us to repeat the study. EILLANCE SYSTEMS ANALYST * Yady Price MA - 10/23/2023 4:10 PM CST After multiple failed attempts in contacting patient to retrieve device. Patient has been invoiced for failure to return Body Guardian. [phone] Ext [id number]. Thank You! EILLANCE SYSTEMS ANALYST * Luli Light - 09/11/2023 8:49 AM CST 30 Day BG Sent To Patient [phone] shipping [phone] return EILLANCE SYSTEMS ANALYST documented in this encounter Plan of Treatment Not on file documented as of this encounter Visit Diagnoses Diagnosis Palpitations documented in this encounter Additional Health Concerns Assessment Noted Time PHQ-9 Depression Total Score: 15 023 10:20 AM SURVEILLANCE SYSTEMS ANALYST documented as of this encounter Care Teams Computer Numeric Control Setter Relationship Specialty Start Date End Date Josefa Rodríguez PA-C [address] [place] [address] PCP - General PHYSICIAN GEOTECHNICAL FIELD TECHNICIAN 08/12/23 documented as of this encounter
--- OUTSIDE RECORDS SUMMARY | 2024-10-22 20:34 | XMS_ITS | Encounter Summary ---
Author Organization [facility] Address [address] [place] [address]. [place], [place] [address] [place] [address] Care Team Providers Care Transitions Rn Care Coordinator Name Role Phone Josefa Rodrgíuez PA-C Primary Care Provider [phone] Encounter Details Date Type Department Care Team (Latest Contact Info) Description 11/07/2023 Travel Social History Tobacco Use Types Packs/Day [...] Sex Assigned at Female 12/15/2018 11:48 AM HIGH SCHOOL DIRECTOR Legal Sex Female 8:12 PM CDT Gender Identity Female 12/15/2018 11:48 AM HIGH SCHOOL DIRECTOR Sexual Orientation Straight 12/15/2018 11 :21 AM HIGH SCHOOL DIRECTOR Occupation Industry Job Start Date Job End Date [employer] Not on file Not on file Not on file documented as of this encounter Plan of Treatment Not on file documented as of this encounter Visit Diagnoses Not on filedocumented in this encounter Additional Health Concerns Assessment Noted Time PHQ-9 Depression Total Score: 15 11/26/ 023 10:20 AM HIGH SCHOOL DIRECTOR documented as of this encounter Care Teams Transitions Rn Care Coordinator Relationship Specialty Start Date End Date Josefa Rodríguez PA-C [address] [place] [address] PCP - General PHYSICIAN PLUGGER WORKER 08/12/23 documented as of this encounter
--- OUTSIDE RECORDS SUMMARY | 2024-10-22 20:34 | XMS_ITS | Encounter Summary ---
Author Organization [facility] Address [address] [place] [address]. [place], [place] [address] [place] [address] Care Team Providers Care Talent Acquisition Assistant Name Role Phone Mera Trevizo Primary Care Provider Encounter Details Date Type Department Care Team (Latest Contact Info) Description 08/03/2022 10:45 AM CDT - 08/03/2022 11:59 PM [facility] Hospital Encounter [facility] [address] [place] [address] [place] [address] [place], [place] [phone] Discharge Disposition: Home or Self Care (Routine [...] Sex Assigned at Female 12/15/2018 11:48 AM TRAIN CONTROL TECHNICIAN Legal Sex Female 8:12 PM CDT Gender Identity Female 12/15/2018 11:48 AM TRAIN CONTROL TECHNICIAN Sexual Orientation Straight 12/15/2018 11 :21 AM TRAIN CONTROL TECHNICIAN 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 Not on file Not on file COVID-19 Exposure Response Date Recorded In the last 10 days, have tami u been in contact with someone who [...] Date/Time Associated Diagnosis Comments TSH W/REFLEX Routine 08/03/2022 11:04 AM CDT Anxiety Low TSH level THYROID ANTIBODY PANEL Routine 08/03/2022 11:04 AM CDT Low TSH level THYROXINE, FREE (FT4) Routine 08/03/2022 11:04 AM CDT documented in this encounter Results * (ABNORMAL) THYROXINE, FREE (FT4) (08/03/2022 11:04 AM CDT) FREE T4 3.54(H) 0.76 - 1.46 NG/DL 08/03/2022 1:45 PM CDT [facility] () [facility] 08/03/2022 11:0 4 AM CDT [facility] Final Result [facility] [address] [place] [address], [place] [phone] * (ABNORMAL) THYROID ANTIBODY PANEL (08/03/2022 11:04 AM CDT) THYROID PEROXIDASE MICROSOMAL AB 1,070(H) <9 IU/mL 08/06/2022 1:56 AM CDT [employer] [facility] THYROGLOBULIN AB <1 <=1 IU/mL 08/06/20 1:56 AM CDT [facility] Comment: Test Performed by [employer], [facility], [address] [place] [address] Cole Toribio M.D., Ph.D., Director of Laboratories , [facility] [id number] 08/03/2022 11:0 4 AM CDT [facility] Final Result Performing Organization Address [facility] de Phone Number [facility] [address] [address], [place] [phone] * (ABNORMAL) TSH W/REFLEX (08/03/2022 11:04 AM CDT) TSH <0.007(L) 0.358 - 3.74 uIU/ML 08/03/2022 12:55 PM CDT [facility] Comment: HIGH DOSES OF BIOTIN MAY INTERFERE WITH THIS TEST RESULT. CORRELATION TO CLINICAL HISTORY AND PRESENTATION RECOMMENDED. 08/03/2022 11:0 4 AM CDT us [facility] Final Result [facility] [address] [place] [address], documented in this encounter Visit Diagnoses Diagnosis Anxiety Anxiety state, unspecified Low TSH level Nonspecific abnormal results of thyroid function study documented in this encounter Additional Health Concerns Assessment Noted Time PHQ-9 Depression Total Score: 17 08/03/ 022 10:11 AM CDT documented as of this encounter Care Teams Talent Acquisition Assistant Relationship Specialty [place] [address] [place] [address] PCP - General PHYSICIAN CHIEF WELLNESS OFFICER 08/03/22 08/11/23 documented as of this encounter
--- OUTSIDE RECORDS SUMMARY | 2024-10-22 20:34 | XMS_ITS | Encounter Summary ---
Author Organization [facility] Address [address] [place] [address]. [place], [place] [address] [place] [address] Care Team Providers Care E Commerce Analyst Name Role Phone Mera Trevizo Primary Care Provider + [phone] Encounter Details Date Type Department Care Team (Latest Contact Info) Description 03/19/2023 Travel Social History Tobacco Use Types Packs/Day [...] Sex Assigned at Female 12/15/2018 11:48 AM TEXTILE MACHINE OPERATOR Legal Sex Female 8:12 PM CDT Gender Identity Female 12/15/2018 11:48 AM TEXTILE MACHINE OPERATOR Sexual Orientation Straight 12/15/2018 11 :21 AM TEXTILE MACHINE OPERATOR Occupation Industry Job Start Date Job End Date Formerly [employer] Not on file Not on file Not on file COVID-19 Exposure Response Date Recorded In the last 10 days, have yo u been in contact with someone who was confirmed or suspected to have Coronavirus/COVID-19? No / Unsure 03/19/2023 1:21 PM CDT documented as of this encounter Plan of Treatment Not on file documented as of this encounter Visit Diagnoses Not on filedocumented in this encounter Additional Health Concerns Assessment Noted Time PHQ-9 Depression Total Score: 15 023 10:20 AM TEXTILE MACHINE OPERATOR documented as of this encounter Care Teams E Commerce Analyst Relationship Specialty [place] [address] [place] [address] PCP - General PHYSICIAN TOW TRUCK OPERATOR 08/03/22 08/11/23 documented as of this encounter
--- OUTSIDE RECORDS SUMMARY | 2024-10-22 20:34 | XMS_ITS | Encounter Summary ---
Author Organization [facility] Address [address] [place] [address]. [place], [place] [address] [place] [address] Care Team Providers Care Recreation Manager Name Role Phone Mera Trevizo Primary Care Provider [phone] Reason for Visit * Reason Onset Date Comments Other 08/08/2022 Encounter Details Date Type Department Care Team (Late st Contact Info) Description 08/08/[address] [address] [place] [address] [place], [place] [phone] Other Social History Tobacco Use Types Packs/Day [...] Sex Assigned at Female 12/15/2018 11:48 AM INSPECTOR ROUGH CASTINGS Legal Sex Female 8:12 PM CDT Gender Identity Female 12/15/2018 11:48 AM INSPECTOR ROUGH CASTINGS Sexual Orientation Straight 12/15/2018 11 :21 AM INSPECTOR ROUGH CASTINGS 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 No / Unsure 08/03/2022 10:00 AM CDT documented as of this encounter Progress Notes * Cindy Powell - 08/08/2022 4:05 PM CDT Several attempts made to contact pt w/no response, ltr sent to patient to contact office for appt. documented in this encounter Plan of Treatment Not on file documented as of this encounter Visit Diagnoses Not on filedocumented in this encounter Additional Health Concerns Assessment Noted Time PHQ-9 Depression Total Score: 17 022 10:11 AM CDT documented as of this encounter Care Teams Recreation Manager Relationship Specialty [place] [address] [place] [address] PCP - General PHYSICIAN SOFTWOOD FALLER 08/03/22 08/11/23 documented as of this encounter
--- OUTSIDE RECORDS SUMMARY | 2024-10-22 20:34 | XMS_ITS | Encounter Summary ---
Author Organization [facility] Address [address] [place] [address]. [place], [place] [address] [place] [address] Care Team Providers Care Senior Programmer Name Role Phone Mera Trevizo Primary Care Provider + [phone] Encounter Details Date Type Department Care Team (Latest Contact Info) Description 08/24/2022 Travel Social History Tobacco Use Types Packs/Day [...] Sex Assigned at Female 12/15/2018 11:48 AM COATING OPERATOR Legal Sex Female 8:12 PM CDT Gender Identity Female 12/15/2018 11:48 AM COATING OPERATOR Sexual Orientation Straight 12/15/2018 11 :21 AM COATING OPERATOR Occupation Industry Job Start Date Job End Date [employer] Not on file Not on file [...] documented as of this encounter Care Teams Senior Programmer Relationship Specialty [place] [address] [place] [address] PCP - General PHYSICIAN SUPERINTENDENT CAR CONSTRUCTION 08/03/22 08/11/23 documented as of this encounter
--- OUTSIDE RECORDS SUMMARY | 2024-10-22 20:34 | XMS_ITS | Encounter Summary ---
Author Organization [facility] Address [address] [place] [address]. [place], [place] [address] [place] [address] Care Team Providers Care Grave Cleaner Name Role Phone Mera Trevizo Primary Care Provider + [phone] Reason for Visit * Reason Onset Date Comments Holter Monitor 08/29/2022 * Imaging (Routine) - Closed Specialty Diagnoses / Procedures Referred By Contac t Referred To Contact Diagnoses Palpitations Procedures CLINIC - HOLTER MONITOR - ECG UP TO 48 HRS,COMPLETE Marcela Lane MD [facility]. [facility] [address] [place] [address] Phone: tel: fax: [facility] [address] [place] [address] [address] [place] [address] Phone: tel: fax: Referral ID Status Reason Start Date Expiration Date Visits Re quested Visits Authorized [id number] Closed 08/24/2022 08/24/2023 1 1 Encounter Details Date Type Department Care Team (Late st Contact Info) Description 08/29/2022 7:30 AM CDT Telephone [facility], [facility] [address] [place], [place] [phone] Marcela Lane MD [facility]. [facility] [address] [place] [address] Holter Monitor Social History Tobacco [...] Assigned at Female 12/15/2018 11:48 AM DIRECTOR OF COMMUNICATIONS Legal Sex Female 8:12 PM CDT Gender Identity Female 12/15/2018 11:48 AM DIRECTOR OF COMMUNICATIONS Sexual Orientation Straight 12/15/2018 11 :21 AM DIRECTOR OF COMMUNICATIONS Occupation Industry Job Start Date Job End Date [employer] Not on file Not on file Not on file COVID-19 Exposure Response Date Recorded In the last 10 days, have yo u been in contact with someone who was confirmed or suspected to have Coronavirus/COVID-19? No / Unsure 09/12/2022 7:38 AM DIRECTOR OF COMMUNICATIONS documented as of this encounter Progress Notes * Yady Price MA - 10/04/2022 1:32 PM CST Left message for patient to return call to avoid being invoiced for the device. Offered UPS pick upwithin the message. Patient will be invoiced for the device if no return call. CTOR OF COMMUNICATIONS * Chelsea Ortega, Correctional Supervisor Lieutenant - 08/29/2022 9:23 AM CDTSummary: SHIPPED MAIL BG MINI 48HM PALP PS 48 HOUR LEAD SET AND 20 ELECTRODES SENT [id number] / [id number] RETURN [id number] documented in this encounter Plan of Treatment Not on file documented as of this encounter Procedures Procedure Name Priority Date/Time Associated Diagnosis Comments HOLTER MONITOR (ECG) UP TO 48 HRS COMPLETE Routine 10/09/2022 1:08 PM DIRECTOR OF COMMUNICATIONS Palpitations documented in this encounter Results * CLINIC - HOLTER MONITOR - ECG UP TO 48 HRS,COMPLETE (10/09/2022 1:08 PM DIRECTOR OF COMMUNICATIONS) Sar[facility] - 10/09/2022 1:08 PM DIRECTOR OF COMMUNICATIONS [facility] [place], [place] ??[address] Phone: ?? Fax: ?? DIGITAL ACCOUNT MANAGER REPORT PATIENT NAME: ??Frances Maguire : ??1975 DATE OF TESTIN09/05/22 - 09/07/22 TYPE OF MONITOR: Mobile Cardiac Telemetry (MCT) PCP: ??VAL ISLAS INTERPRETING GLOBAL UPSTREAM MARKETING MANAGER: ??Marcela Lane MD INDICATION: ??Palpitations FINDINGS: Frances Maguire underwent monitoring for a total of 1 day 23 hours 25 minutes. Baseline rhythm: The baseline rhythm was normal sinus with heart rates ranging between 65 and 147 beats per minute, with average rate of 107 beats per minute. Sinus node function: ??Sinus node function was normal with no evidence of severe bradycardia or pauses longer than 3 seconds. A-V conduction: ??A-V conduction was normal with no evidence of significant A-V block. Atrial arrhythmias: There were rare PACs, a total of 295 PACs over 48 hours, which accounted for <1% of total heart beats. ??Atrial tachycardia was not observed. ??Atrial fibrillation was not observed. ??Atrial flutter was not observed. Ventricular arrhythmias: ??There were rare PVCs, a total of 10 PVCs over 48 hours, which accounted for <1% of total heart beats. ??Ventricular tachycardia was not observed. Symptoms: ??The patient reported palpitations with sinus rhythm. SUMMARY: No significant arrhythmias. No symptom rhythm correlation. us Marcela Lane MD CV VASCULAR ORDERABLES Final Res [facility] documented in this encounter Visit Diagnoses Diagnosis Palpitations documented in this encounter Additional Health Concerns Infection Onset Date Last Indicated Resolved Time COVID-19 Rule Out 09/12/2022 09/12/2022 09/12/2022 10:26 AM DIRECTOR OF COMMUNICATIONS COVID-19 Rule Out 09/12/2022 09/12/2022 09/12/2022 1:04 PM DIRECTOR OF COMMUNICATIONS COVID-19 Rule Out 09/12/2022 09/12/2022 09/13/2022 5:41 PM DIRECTOR OF COMMUNICATIONS Assessment Noted Time PHQ-9 Depression Total Score: 17 022 10:11 AM CDT documented as of this encounter Care Teams Grave Cleaner Relationship Specialty [place] [address] [place] [address] PCP - General PHYSICIAN FINANCE ADMINISTRATOR 08/03/22 08/11/23 documented as of this encounter
--- OUTSIDE RECORDS SUMMARY | 2024-10-22 20:34 | XMS_ITS | Encounter Summary ---
Author Organization [facility] Address [address] [place] [address]. [place], [place] [address] [place] [address] Care Team Providers Care Calibration Specialist Name Role Phone Mera Trevizo Primary Care Provider + [phone] Reason for Visit * Reason Onset Date Comments Consult 08/07/2022 Encounter Details Date Type Department Care Team ([facility] st Contact Info) Description 08/07/[address] [address] Jane Hernandez, RMA Consult Social History Tobacco Use Types Packs/Day Years [...] Sex Assigned at Female 12/15/2018 11:48 AM GLOVE TURNER AND FORMER Legal Sex Female 8:12 PM CDT Gender Identity Female 12/15/2018 11:48 AM GLOVE TURNER AND FORMER Sexual Orientation Straight 12/15/2018 11 :21 AM GLOVE TURNER AND FORMER 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 No / Unsure 08/03/2022 10:00 AM CDT documented as of this encounter Progress Notes * ILIA Couch - 08/07/2022 1:52 PM CDT Returned call and left message to schedule cardiology consult per VAL Garcia documented in this encounter Plan of Treatment Not on file documented as of this encounter Visit Diagnoses Not on filedocumented in this encounter Additional Health Concerns Assessment Noted Time PHQ-9 Depression Total Score: 17 022 10:11 AM CDT documented as of this encounter Care Teams Calibration Specialist Relationship Specialty Start [place] [address] [place] [address] PCP - General PHYSICIAN SHIPPING/RECEIVING MANAGER 08/03/22 08/11/23 documented as of this encounter
--- OUTSIDE RECORDS SUMMARY | 2024-10-22 20:34 | XMS_ITS | Encounter Summary ---
Author Organization [facility] Address [address] [place] [address]. [place], [place] [address] [place] [address] Care Team Providers Care Section 8 Property Manager Name Role Phone Mera Trevizo Primary Care Provider + [phone] Reason for Referral * Consultation/Treatment (Routine) - Closed Specialty Diagnoses / Procedures Referred By Contac t Referred To Contact GENERAL SURGERY Diagnoses LLQ pain Polyp of colon, unspecified part of colon, unspecified type Procedures OFFICE/OUTPT VISIT,NEW,LEVL III OFFICE/OUTPT VISIT,NEW,LEVL IV OFFICE/OUTPT VISIT,NEW,LEVL V OFFICE/OUTPT VISIT,EST,LEVL III OFFICE/OUTPT VISIT,EST,LEVL IV OFFICE/OUTPT VISIT,[place] [address] [place] [address] Phone: tel: fax: Chuck Ruby DO Phone: tel: fax: Referral ID Status Reason Start Date Expiration Date Visits Re quested Visits Authorized [id number] Closed 03/12/2023 04/12/2024 100 100 * Consultation (Urgent) - Closed Specialty Diagnoses / Procedures Referred By Contac t Referred To Contact ENDOCRINOLOGY Diagnoses Abnormal TSH Procedures OFFICE/OUTPT VISIT,NEW,LEVL III OFFICE/OUTPT VISIT,NEW,LEVL IV OFFICE/OUTPT VISIT,NEW,LEVL V OFFICE/OUTPT VISIT,EST,LEVL III OFFICE/OUTPT VISIT,EST,LEVL IV OFFICE/OUTPT VISIT,EST,[place] [address] [place] [address] Phone: tel: fax: [facility] [address] [address] Phone: tel: fax: Referral ID Status Reason Start Date Expiration Date Visits Re quested Visits Authorized [id number] Closed 03/12/2023 04/11/2024 1 1 Scheduling Instructions Suspect hyperthyroidism Reason for Visit * Reason Comments Hernia Abd bulge Encounter Details Date Type Department Care Team (Late st Contact Info) Description 03/12/2023 9:40 AM CDT Office Visit [facility] Family & Internal Medicine [facility] [id number] [place] [address] [place] [address] [place] [address] Hernia (Abd bulge) Social History Tobacco Use Types Packs/Day Years [...] Sex Assigned at Female 12/15/2018 11:48 AM GRAVEDIGGER Legal Sex Female 8:12 PM CDT Gender Identity Female 12/15/2018 11:48 AM GRAVEDIGGER Sexual Orientation Straight 12/15/2018 11 :21 AM GRAVEDIGGER Occupation Industry Job Start Date Job End Date [employer] Not on file Not on file Not on file COVID-19 Exposure Response Date Recorded In the last 10 days, have tami u been in contact with someone who was confirmed or suspected to have Coronavirus/COVID-19? No / Unsure 03/12/2023 9:27 AM CDT documented as of this encounter Last Filed Vital Signs Vital Sign Reading Time Taken Comments Blood Pressure 123/72 03/12/2023 9:35 AM CDT Pulse 88 03/12/2023 9:35 AM CDT Temperature 36.2 ??C (97.1 ??F) 03/12/2023 9:35 AM CD T Respiratory Rate 18 03/12/2023 9:35 AM CDT Oxygen Saturation 99% 03/12/2023 9:35 AM CDT Inhaled Oxygen Concentration - - Weight 69.4 kg (153 lb) 03/12/2023 9:35 AM CDT Height 167.6 cm (5' 6 ) 03/12/2023 9:35 AM CDT Body Mass Index 24.69 03/12/2023 9:35 AM CDT documented in this encounter Progress Notes * VAL Gil - 03/12/2023 9:40 AM CDT Images from the original note were not included. _ Reason for Visit: Hernia (Abd bulge) History of Present Illness: MERCEDES Maguire is a 47-year-old female here for evaluation of a bulge that she is noticing in her left lower quadrant. Patient believes that she may have a hernia. She has been noticing this for about 2 to 3 months. She has seen her DIGITAL COMMUNITY MANAGER they did a pelvic ultrasound they did not see any problems with the cyst on her ovary. We also discussed that it looks like she isdue for a colonoscopy. She reports that she had a colon polyp 20 years ago and has not had a colonoscopy since. She is agreeable to seeing Dr. Bowie to evaluate her for possible hernia as well as her colonoscopy. She has not yet sent seen endocrinology, she states there was a mixup with her last appointment and she never went. We will place a new referral today. ROS: Review of Systems Feeling well. Denies headaches, vision or hearing problems. No recent colds or flus, denies symptoms suggestive of allergies. Denies dysphagia, heartburn or indigestion. No heart palpitations, dyspnea or chest pain on exertion. No nausea, abdominal pain, change in bowel habits, black or bloody stools. No urinary tract symptoms. No muscle or joint aches or pains. No foot or leg edema. No numbness,tingling,or weakness. No anxiety or depressive symptoms, Sleeping well. No significant weight gain or loss. No fatigue. Medications: Outpatient Medications Marked as Taking for the 03/12/23 encounter (Office Visit) with VAL Gil Medication Sig Dispense Refill acidiphilus probiotic tablet Take 2 tablets by mouth daily. ACYCLOVIR 400 MG tablet TAKE 1 TABLET BY MOUTH DAILY 150 tablet 0 MAGNESIUM ASPARTATE OR Take 400 mg by mouth daily. multi vitamin/minerals tablet Take 1 tablet by mouth 2 (two) times daily. sertraline (ZOLOFT) 100 MG tablet TAKE 1 [...] Relation Name Status Mother Alive Father Alive 08/03/2022 10:11 AM 11/26/2022 10:20 AM PHQ2/PHQ 9 DEPRESSION SCREEN QUESTIONAIRE Little interest or pleasure in doing things Almost all Feeling down, depressed, or hopeless Not at all Patient Health Questionnaire-2 Score 3 Trouble falling or staying asleep, or sleeping [...] get along with other people? Somewhat difficult LITTLE INTEREST OR PLEASURE IN DOING THINGS 3-Nearly every day FEELING DOWN, DEPRESSSED,OR HOPELESS 1-Several Days PHQ2 DEPRESSION TOTAL SCORE 4 TROUBLE FALLING OR STAYING ASLEEP OR SLEEPING TOO MUCH 3-Nearly every day FEELING TIRED OR HAVING LITTLE ENERGY 3-Nearly every day POOR APPETITE OR OVEREATING 2-More than half the days FEELING BAD ABOUT YOURSELF 1-Several Days TROUBLE CONCENTRATING ON THINGS 2-More than half the days MOVING OR SPEAKING SO SLOWLY THAT OTHER PEOPLE COULD HAVE NOTICED 2-More than half the days THOUGHTS THAT YOU WOULD BE BETTER OFF 0-Not at All DEPRESSION SCREENING TOTAL SCORE 17 IF YOU CHECKED OFF ANY PROBLEMS Somewhat difficult 08/03/2022 10:00 AM 11/26/2022 10:00 AM JENN-7 Feeling nervous, anxious and on edge 2 - more than half the days 0 - not at all Not being able to stop or control worrying 1 - several days 0 - not at all Worrying too much about different things 1 - several days 1 - several days Trouble Relaxing 0 - not at all 1 - several days Being so restless that it's hard to sit still 2 - more than half the days 0 - not at all Becoming easily annoyed or irritable 2 - more than half the days 1 - several days Feeling afraid as if something awful might happen 0 - not at all 1 - several days Total Score 8 4 If you checked off any problems, how difficult have those problems made it for you to do your work take care of things at home or get along with other people? not difficult at all not difficult at all Physical Exam Constitutional: Patient is oriented to person, place, and time. Patient appears well-developed and well-nourished. HENT: Right Ear: External ear normal. Left Ear: External ear normal. Head: Normocephalic. Nose: Nose normal. Mouth/Throat: Oropharynx is clear and moist. Eyes: Pupils are equal, round, and reactive to light. Neck: No JVD present. No thyromegaly present. Cardiovascular: Normal rate, regular rhythm, normal heart sounds and intact distal pulses. No murmur heard. Pulmonary/Chest: No respiratory distress. Patient has no wheezes. Patient has no rales. Patient exhibits no tenderness. Abdominal: Patient exhibits no distension and no mass. There is mild tenderness. There is no rebound and no guarding. I do not appreciate a hernia on exam. Musculoskeletal: Normal range of motion. Patient exhibits no edema, tenderness or deformity. Lymphadenopathy: Patient has no cervical adenopathy. Neurological: Patient is alert and oriented to person, place, and time. Skin: No rash noted. No erythema. Psychiatric: Patient has a normal mood and affect. The behavior is normal. Thought content normal. View : No data to display. Vitals: 03/12/23 0935 Patient Position: Sitting BP Location: Right arm Cuff size: Adult Long BP: 123/72 Pulse: 88 Body mass index is 24.69 kg/m??. Assessment and Plan Encounter Diagnose(s) ICD-10-CM ICD-9-CM SNOMED CT(R) 1. Abnormal TSH R79.89 790.6 THYROID HORMONE TESTS OUTSIDE REFERENCE RANGE TSH W/REFLEX THYROXINE, FREE (FT4) VENIPUNC ARM DRAW Ambulatory referral to Endocrinology (OTHER) 2. LLQ pain R10.32 789.04 LEFT LOWER QUADRANT PAIN CT ABD+PEL W CON Ambulatory referral to General Surgery ([facility]) 3. Polyp of colon, unspecified part of colon, unspecified type K63.5 211.3 POLYP OF COLON Ambulatory referral to General Surgery ([facility]) We will refer patient to Dr. Bowie for further evaluation of left lower quadrant pain assessment of potential hernia and colonoscopy for her colon polyp history. We will also get CT of abdomen pelvis to further assess her symptoms. I did place a new referral to endocrinology. Orders Placed This Encounter VENIPUNC ARM DRAW TSH W/REFLEX THYROXINE, FREE (FT4) Ambulatory referral to Endocrinology (OTHER) Ambulatory referral to General Surgery ([facility]) CT ABD+PEL W CON I spent 35 minutes obtaining history and [...] Portions of this note were dictated using Mayi Zhaopin speech recognition software. Occasional wrong wordor sound-alike substitutions may have occurred due to the inherent limitations of voice recognition software. Please read the chart carefully and recognize, using context, where the substitutions may have occurred. Mera Trevizo PA-C evaluated and Dr Yrn Padilla reviewed and agrees with plan. documented in this encounter Plan of Treatment Scheduled Referrals Name Type Priority Associated Diagnoses Orde r Schedule Ambulatory referral to Endocrinology (OTHER) Referral OUMAR Abnormal TSH Ordered: 03/12/2023 Ambulatory referral to General Surgery ([facility]) Referral Routine LLQ pain Polyp of colon, unspecified part of colon, unspecified type Ordered: 03/12/2023 documented as of this encounter Procedures Procedure Name Priority Date/Time Associated Diagnosis Comments VENIPUNC ARM DRAW Routine 03/12/2023 9:51 AM CDT Abnormal TSH documented in this encounter Results * (ABNORMAL) THYROXINE, FREE (FT4) (03/12/2023 9:46 AM CDT) FREE T4 3.74(H) 0.76 - 1.46 NG/DL 03/12/2023 3:18 PM CDT [facility] 03/12/2023 9:46 AM CDT [facility] Final Result [facility] [address] [place] [address], [place] [phone] * (ABNORMAL) TSH W/REFLEX (03/12/2023 9:46 AM CDT) TSH <0.007(L) 0.358 - 3.74 uIU/ML 03/12/2023 3:18 PM CDT [facility] Comment: HIGH DOSES OF BIOTIN MAY INTERFERE WITH THIS TEST RESULT. CORRELATION TO CLINICAL HISTORY AND PRESENTATION RECOMMENDED. 03/12/2023 9:46 AM CDT [facility] Final Result [facility] [address] [facility] [place] [address], documented in this encounter Visit Diagnoses Diagnosis Abnormal TSH- Primary Other abnormal clinical finding LLQ pain Abdominal pain, left lower quadrant Polyp of colon, unspecified part of colon, unspecified type documented in this encounter Additional Health Concerns Assessment Noted Time PHQ-9 Depression Total Score: 15 023 10:20 AM GRAVEDIGGER documented as of this encounter Care Teams Section 8 Property Manager Relationship Specialty [place] [address] [place] [address] PCP - General PHYSICIAN MAIN LINE ASSEMBLER 08/03/22 08/11/23 documented as of this encounter
--- OUTSIDE RECORDS SUMMARY | 2024-10-22 20:34 | XMS_ITS | Encounter Summary ---
Author Organization [facility] Address [address] [place] [address]. [place], [place] [address] [place] [address] Care Team Providers Care Ventilating Engineer Name Role Phone Mera Trevizo Primary Care Provider + [phone] Encounter Details Date Type Department Care Team (Latest Contact Info) Description 11/26/2022 Travel Social History Tobacco Use Types Packs/Day [...] Sex Assigned at Female 12/15/2018 11:48 AM COORDINATOR HOTELS Legal Sex Female 8:12 PM CDT Gender Identity Female 12/15/2018 11:48 AM COORDINATOR HOTELS Sexual Orientation Straight 12/15/2018 11 :21 AM COORDINATOR HOTELS Occupation Industry Job Start Date Job End Date [facility] [employer] Not on file Not on file Not on file COVID-19 Exposure Response Date Recorded In the last 10 days, have yo u been in contact with someone who was confirmed or suspected to have Coronavirus/COVID-19? No / Unsure 11/26/2022 9:58 AM COORDINATOR HOTELS documented as of this encounter Plan of Treatment Not on file documented as of this encounter Visit Diagnoses Not on filedocumented in this encounter Additional Health Concerns Infection Onset Date Last Indicated Resolved Time COVID-19 Rule Out 11/26/2022 11/26/2022 11/26/2022 10:46 AM COORDINATOR HOTELS Assessment Noted Time PHQ-9 Depression Total Score: 15 023 10:20 AM COORDINATOR HOTELS documented as of this encounter Care Teams Ventilating Engineer Relationship Specialty [place] [address] [place] [address] PCP - General PHYSICIAN WEDDING MAKEUP ARTIST 08/03/22 08/11/23 documented as of this encounter
--- OUTSIDE RECORDS SUMMARY | 2024-10-22 20:34 | XMS_ITS | Encounter Summary ---
Author Organization [facility] Address [address] [place] [address]. [place], [place] [address] [place] [address] Care Team Providers Care Geomorphologist Name Role Phone Mera Trevizo Primary Care Provider [phone] Reason for Visit * Reason Onset Date Comments Referral 03/13/2023 Encounter Details Date Type Department Care Team (Late st Contact Info) Description 03/13/2023 Telephone [facility] Family & Internal Medicine [facility] [address] [place] [address] [place] [address] [place] [address] Referral Social History Tobacco Use Types Packs/Day [...] Sex Assigned at Female 12/15/2018 11:48 AM HOSPICE EXECUTIVE DIRECTOR Legal Sex Female 8:12 PM CDT Gender Identity Female 12/15/2018 11:48 AM HOSPICE EXECUTIVE DIRECTOR Sexual Orientation Straight 12/15/2018 11 :21 AM HOSPICE EXECUTIVE DIRECTOR 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 No / Unsure 03/12/2023 9:27 AM CDT documented as of this encounter Progress Notes * Vonda Barreto RN - 03/13/2023 12:57 PM CDT Updated referral to external, to send to whoever is in network with patient's insurance. * Bettina Stiles - 03/13/2023 12:22 PM CDT We received a referral to the [facility] for the patient to be seen. But we donot take [employer] insurance. Patient needs to see someone who takes her insurance. Please change referral. Thank you. documented in this encounter Plan of Treatment Not on file documented as of this encounter Visit Diagnoses Not on filedocumented in this encounter Additional Health Concerns Assessment Noted Time PHQ-9 Depression Total Score: 15 023 10:20 AM HOSPICE EXECUTIVE DIRECTOR documented as of this encounter Care Teams Geomorphologist Relationship Specialty [place] [address] [place] [address] PCP - General PHYSICIAN CUSTOMER RECORDS DIVISION SUPERVISOR 08/03/22 08/11/23 documented as of this encounter
--- OUTSIDE RECORDS SUMMARY | 2024-10-22 20:34 | XMS_ITS | Encounter Summary ---
Author Organization [facility] Address [address] [place] [address]. [place], [place] [address] [place] [address] Care Team Providers Care Support Teacher Name Role Phone Mera Trevizo Primary Care Provider + [phone] Reason for Visit * Reason Onset Date Comments Referral 06/24/2023 Referral request Encounter Details Date Type Department Care Team (Late st Contact Info) Description 06/24/2023 Telephone [facility] Medical [facility] Diabetes and Endocrinology - [address] [address] Dre Munoz MD Referral (Referral request ) Social History Tobacco Use Types Packs/Day [...] Sex Assigned at Female 12/15/2018 11:48 AM COLLEGE PHYSICS INSTRUCTOR Legal Sex Female 8:12 PM CDT Gender Identity Female 12/15/2018 11:48 AM COLLEGE PHYSICS INSTRUCTOR Sexual Orientation Straight 12/15/2018 11 :21 AM COLLEGE PHYSICS INSTRUCTOR 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 Not on file Not on file documented as of this encounter Progress Notes * Reema Colindres - 07/26/2023 3:51 PM CDT LVM for patient office not scheduling REPAIRER PUMP appt, Dr. Munoz will no longer be with the practice. Please contact PCP to be referred to another practice. * Yoselyn Castro - 06/24/2023 3:41 PM CDT Patient called would like a call back to schedule referral if you can call her back anytime after 1:30pm Callback@ [phone] documented in this encounter Plan of Treatment Not on file documented as of this encounter Visit Diagnoses Not on filedocumented in this encounter Additional Health Concerns Assessment Noted Time PHQ-9 Depression Total Score: 15 023 10:20 AM COLLEGE PHYSICS INSTRUCTOR documented as of this encounter Care Teams Support Teacher Relationship Specialty [place] [address] [place] [address] PCP - General PHYSICIAN PHOTOGRAPHIC AIDE 08/03/22 08/11/23 documented as of this encounter
--- OUTSIDE RECORDS SUMMARY | 2024-10-22 20:34 | XMS_ITS | Encounter Summary ---
Author Organization [facility] Address [address] [place] [address]. [place], [place] [address] [place] [address] Care Team Providers Care Earrings Fabricator Name Role Phone Mera Trevizo Primary Care Provider [phone] Josefa Rodríguez PA-C Primary Care Provider [phone] Encounter Details Date Type Department Care Team (Late st Contact Info) Description 03/19/2023 [facility] Message Enc [facility] Family & Internal Medicine [facility] [address] [place] [address] [place] [address] [place] [address] Antibiotic Social History Tobacco Use Types Packs/Day Years [...] Sex Assigned at Female 12/15/2018 11:48 AM CAUSTIC LIQUOR MAKER Legal Sex Female 8:12 PM CDT Gender Identity Female 12/15/2018 11:48 AM CAUSTIC LIQUOR MAKER Sexual Orientation Straight 12/15/2018 11 :21 AM CAUSTIC LIQUOR MAKER Occupation Industry Job Start Date Job End Date [employer] mirtha Not on file Not on file Not [...] Depression Total Score: 15 023 10:20 AM CAUSTIC LIQUOR MAKER documented as of this encounter Care Teams Earrings Fabricator Relationship Specialty [place] [address] [place] [address] PCP - General PHYSICIAN PLUSH WEAVER 08/03/22 08/11/23 Josefa Rodríguez PA-C [address] [address] [address] PCP - General PHYSICIAN PLUSH WEAVER 08/12/23 documented as of this encounter
--- OUTSIDE RECORDS SUMMARY | 2024-10-22 20:34 | XMS_ITS | Encounter Summary ---
Author Organization [facility] Address [address] [place] [address]. [place], [place] [address] [place] [address] Care Team Providers Care Senior Risk Manager Name Role Phone Trenton Trevizo Primary Care Provider [phone] Reason for Visit * Imaging (Routine) - Closed Specialty Diagnoses / Procedures Referred By Contac t Referred To Contact RADIOLOGY Diagnoses Breast cancer screening by mammogram Procedures MG SCREENING [place] [address] [place] [address] Phone: tel: fax: Referral ID Status Reason Start Date Expiration Date Visits Re quested Visits Authorized [id number] Closed 08/27/2022 08/27/2023 1 1 Encounter Details Date Type Department Care Team (Latest Contact Info) Description 08/28/2022 2:17 PM CDT - 08/28/2022 11:59 PM CDT Hospital Encounter [facility] Mammography [address] [place] [address] [place] [address] [place], [place] [id number] Discharge Disposition: Home or Self Care (Routine [...] Sex Assigned at Female 12/15/2018 11:48 AM PATIENT SERVICES MANAGER Legal Sex Female 8:12 PM CDT Gender Identity Female 12/15/2018 11:48 AM PATIENT SERVICES MANAGER Sexual Orientation Straight 12/15/2018 11 :21 AM PATIENT SERVICES MANAGER 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 No / Unsure 08/28/2022 2:17 PM CDT documented as of this encounter Medications [...] Procedure Name Priority Date/Time Associated Diagnosis Comments MG SCREENING W MICAH SOHAM DIGI Routine 08/28/2022 2:47 PM CDT Breast cancer screening by mammogram documented in this encounter Results * MG SCREENING W MICAH SOHAM DIGI [...] with computer aided detection. Ordered By: TRENTON TREVIZO Interpreted By: Kenneth Bruner, 08/28/2022 2:33 PM [...] regions are within normal limits. us Trenton [facility] Final Result documented in this encounter Visit Diagnoses Not on filedocumented in this encounter Additional Health Concerns Assessment Noted Time PHQ-9 Depression Total Score: 17 022 10:11 AM CDT documented as of this encounter Care Teams Senior Risk Manager Relationship Specialty Start Date End Date [place], [place] [address] [place] [address] PCP - General PHYSICIAN CLASSIFICATION ANALYST 08/03/22 08/11/23 documented as of this encounter
--- OUTSIDE RECORDS SUMMARY | 2024-10-22 20:34 | XMS_ITS | Encounter Summary ---
Author Organization [facility] Address [address] [place] [address]. [place], [place] [address] [place] [address] Care Team Providers Care Advertising Consultant Name Role Phone Mera Trevizo Primary Care Provider + [phone] Encounter Details Date Type Department Care Team (Latest Contact Info) Description 03/12/2023 Travel Social History Tobacco Use Types Packs/Day [...] Sex Assigned at Female 12/15/2018 11:48 AM REHABILITATION SERVICES COUNSELOR Legal Sex Female 8:12 PM CDT Gender Identity Female 12/15/2018 11:48 AM REHABILITATION SERVICES COUNSELOR Sexual Orientation Straight 12/15/2018 11 :21 AM REHABILITATION SERVICES COUNSELOR Occupation Industry Job Start Date Job End Date [employer] Not on file Not on [...] Depression Total Score: 15 023 10:20 AM REHABILITATION SERVICES COUNSELOR documented as of this encounter Care Teams Advertising Consultant Relationship Specialty [place] [address] [place] [address] PCP - General PHYSICIAN CONE SEWER 08/03/22 08/11/23 documented as of this encounter
--- OUTSIDE RECORDS SUMMARY | 2024-10-22 20:34 | XMS_ITS | Encounter Summary ---
Author Organization [facility] Address [address] [place] [address]. [place] [id number] [place], [place] [id number] Care Team Providers Care Motorman/Woman Name Role Phone Mera Trevizo Primary Care Provider [phone] Reason for Referral * Imaging (Routine) - Closed Specialty Diagnoses / Procedures Referred By Hussein t Referred To Contact RADIOLOGY Diagnoses Breast cancer screening by mammogram Procedures MG SCREENING W [place]AH [place] [address] [place] [address] Phone: tel: fax: Referral ID Status Reason Start Date Expiration Date Visits Re quested Visits Authorized [id number] Closed 08/27/2022 08/27/2023 1 1 * Consultation (Routine) - Closed Specialty Diagnoses / Procedures Referred By Contac t Referred To Contact CARDIOLOGY / Cardiology Diagnoses Heart palpitations Procedures OFFICE/OUTPT VISIT,NEW,LEVL III OFFICE/OUTPT VISIT,NEW,LEVL IV OFFICE/OUTPT VISIT,NEW,LEVL V OFFICE/OUTPT VISIT,EST,LEVL III OFFICE/OUTPT VISIT,EST,LEVL IV OFFICE/OUTPT VISIT,[place] [address] [place] [phone] Phone: tel: fax: [facility], [address] [address] Phone: tel: fax: Referral ID Status Reason Start Date Expiration Date V isits Requested Visits Authorized [id number] Closed Specialty Services 08/03/2022 09/02/2023 1 1 Reason for Visit * Reason Comments Follow Up Transfer care (Kendra pt) Refill Request Pt needing refill on Serteraline Referral Request Pt requesting referr als for endocrine and cardiology Encounter Details Date Type Department Care Team (Late st Contact Info) Description 08/03/2022 10:00 AM CDT Office Visit [facility] Family & Internal Medicine [address] [address] Mera Trevizo [place] [id number] [place] [address] Follow Up (Transfer care (Kendra pt)); Refill Request (Pt needing refill on Serteraline); Referral Request (Pt requesting referrals for endocrine and cardiology) Social History Tobacco Use Types Packs/Day Years [...] Sex Assigned at Female 12/15/2018 11:48 AM BUSINESS AND SERVICES INSTRUCTOR Legal Sex Female 8:12 PM CDT Gender Identity Female 12/15/2018 11:48 AM BUSINESS AND SERVICES INSTRUCTOR Sexual Orientation Straight 12/15/2018 11 :21 AM BUSINESS AND SERVICES INSTRUCTOR Occupation Industry Job Start Date Job [...] Sign Reading Time Taken Comments Blood Pressure 133/78 08/03/2022 10:31 AM CDT Pulse 72 08/03/2022 10:06 AM CDT Temperature 36.4 ??C (97.5 ??F) 08/03/2022 10:06 AM C DT Respiratory Rate 18 08/03/2022 10:06 AM CDT Oxygen Saturation 98% 08/03/2022 10:06 AM CDT Inhaled Oxygen Concentration - - Weight 69.4 kg (153 lb) 08/03/2022 10:06 AM CDT Height 167.6 cm (5' 6 ) 08/03/2022 10:06 AM CDT Body Mass Index 24.69 08/03/2022 10:06 AM CDT documented in this encounter Progress Notes * VAL Gil - 08/03/2022 10:00 AM CDT Images from the original note were not included. _ Reason for Visit: Follow Up (Transfer care (Kendra pt)), Refill Request (Pt needing refill on Serteraline), and Referral Request (Pt requesting referrals for endocrine and cardiology) History of Present Illness: MERCEDES Maguire is a 46-year-old female here for evaluation of anxiety and depression symptoms. Patient states that she does well with the sertraline. But it she is fearful that she will be taken off of it. She states that despite taking it she still has some anxiety. Hestates she also feels her heart race at times. She has a bit of a tremor in her hands. Looking at her labs last year she did have a low TSH. Patient was try to get in with endocrinology but never really made contact with that. She could have hyper thyroidism Graves' disease. She has noticed that her eyes to be bulging more than usual. She does have family history. She is denying any syncopal episodes. She denies any thoughts of harming self or others. She is due for screening mammogram and agrees to the schedule. ROS: Review of Systems Feeling well. Denies headaches, vision or hearing problems. No recent colds or flus, denies symptoms suggestive of allergies. Denies dysphagia, heartburn or indigestion. No dyspnea or chest pain on exertion. No nausea, abdominal pain, change in bowel habits, black or bloody stools. No urinary tractsymptoms. No muscle or joint aches or pains. No foot or leg edema. No numbness, tingling,or weakness positive tremor. Positive anxiety or depressive symptoms, Sleeping well. No significant weight gain or loss. No fatigue. Medications: Outpatient Medications Marked as Taking for the 08/03/22 encounter (Office Visit) with VAL Gil Medication Sig Dispense Refill ??? acidiphilus probiotic tablet Take 2 tablets by mouth daily. ??? ACYCLOVIR 400 MG tablet TAKE 1 TABLET BY MOUTH DAILY 150 tablet 0 ??? MAGNESIUM ASPARTATE OR Take 400 mg by mouth daily. ??? multi vitamin/minerals tablet Take 1 tablet by mouth 2 (two) times daily. ??? sertraline (ZOLOFT) 100 MG tablet TAKE 1 AND 1/2 TABLETS(150 MG) BY MOUTH DAILY 45 tablet 3 Allergies Allergen Reactions ??? Penicillins Anaphylaxis Can take Amoxicillin Past Medical History: Diagnosis Date ??? Anxiety ??? Depression Past Surgical History: Procedure Laterality Date ??? [...] Status ??? Mother Alive ??? Father Alive PHQ-2 - Over the last 2 weeks, how often have you been bothered by any of the following problems? 1. Little Interest or pleasure in doing things: 3-Nearly every day 2. Feeling down,depressed,or hopeless: 1-Several Days PHQ-2 Score - If the patient scores above 3, please move on to questions 3-9: 4 PHQ 9 - Over the last 2 weeks, how often have you been bothered by any of the following problems? 3. Trouble falling or staying asleep or sleeping too much: 3-Nearly every day 4. Feeling tired or having little energy: 3-Nearly every day 5. Poor appetite or overeatin-More than half the days 6. Feeling bad about yourself or that you are a failure or have let yourself or your family down: 1-Several Days 7. Trouble concentrating on things, such as reading the newspaper or watching television: 2-More than half the days 8. Moving or speaking so slowly that other people could have noticed. Or the opposite, being so fidgety or restless that you have been moving around a lot more than usual: 2-More than half the days 9. Thoughts that you would be better off or of hurting yourself in some way: 0-Not at All Total Score: 17 If you checked off any problems, how difficult have these problems made it for you to do your work,take care of things at home, or get along with other people?: Somewhat difficult Physical Exam Constitutional: Patient is oriented to person, place, and time. Patient appears well-developed and well-nourished. She does feel seem a bit anxious slight tremor HENT: Right Ear: External ear normal. Left Ear: External ear normal. Head: Normocephalic. Nose: Nose normal. Mouth/Throat: Oropharynx is clear and moist. Eyes: Pupils are equal, round, and reactive to light. Her eyes are slightly protruding Neck: No JVD present. No thyromegaly present. [...] Thought content normal. No flowsheet data found. Vitals: 08/03/22 1006 08/03/22 1029 08/03/22 1031 BP: (!) 156/90 (!) 156/90 133/78 Pulse: 72 Body mass index is 24.69 kg/m??. Assessment and Plan Encounter Diagnose(s) ICD-10-CM ICD-9-CM SNOMED CT(R) 1. Breast cancer screening by mammogram Z12.31 V76.12 PATIENT ENCOUNTER STATUS MG SCREENING SOHAM DIGI 2. Anxiety F41.9 300.00 ANXIETY TSH W/REFLEX 3. Heart palpitations R00.2 785.1 PALPITATIONS Ambulatory referral to Cardiology, [facility] ([facility]) 4. Low TSH level R79.89 794.5 DECREASED THYROID STIMULATING HORMONE LEVEL TSH W/REFLEX THYROID ANTIBODY PANEL 5. Anxiety and depression F41.9 300.00 MIXED ANXIETY AND DEPRESSIVE DISORDER sertraline (ZOLOFT) 100 MG tablet F32.A 311 Okay to hold off on putting in the endocrine referral until we get back to thyroid testing. We willdefinitely send her to cardiology due to the palpitation feeling. We will refill her anxiety medication and I told her that if nothing becomes of the cardiology and endocrinology referrals we should bring her back and to try to better treat the anxiety. If the anxiety is contributing to her symptoms. But I do suspect some thyroid disease. I spent 42 minutes obtaining history and performing exam. Time [...] Portions of this note were dictated using [employer] speech recognition software. Occasional wrong wordor sound-alike substitutions may have occurred due to the inherent limitations of voice recognition software. Please read the chart carefully and recognize, using context, where the substitutions may have occurred. Mera Trevizo PA-C evaluated and Dr Yrn Padilla reviewed and agrees with plan. Cosigned by Yrn Padilla MD at 08/03/2022 5:27 PM CDT documented in this encounter Plan of Treatment Scheduled Referrals Name Type Priority Associated Diagnoses Orde r Schedule Ambulatory referral to Cardiology, Adult ([facility]) Referral Routine Heart palpitations Ordered: 08/03/2022 documented as of this encounter Procedures Procedure [...] interpreted with computer aided detection. Ordered By: MERA TREVIZO Interpreted By: Kenneth Bruner, 08/28/2022 2:33 [...] retraction. ??Axillary regions are within normal limits. [facility] Final Result * (ABNORMAL) THYROID ANTIBODY PANEL (08/03/2022 11:04 AM CDT) THYROID PEROXIDASE MICROSOMAL AB 1,070(H) <9 IU/mL 08/06/2022 1:56 AM CDT [employer] BRITTWAQAR TRACY THYROGLOBULIN AB <1 <=1 IU/mL 08/06/20 1:56 AM CDT [employer] JAVY TRACY Comment: Test Performed by Rosa Maldonado, [facility], [address] [place], [place] Cole Toribio M.D., Ph.D., Director of Laboratories , [place] [id number] 08/03/2022 11:0 4 AM CDT [facility] Final Result [facility] [address] [place] [address], [place] [phone] * (ABNORMAL) TSH W/REFLEX (08/03/2022 11:04 AM CDT) TSH <0.007(L) 0.358 - 3.74 uIU/ML 08/03/2022 12:55 PM CDT [facility] Comment: HIGH DOSES OF BIOTIN MAY INTERFERE WITH THIS TEST RESULT. CORRELATION TO CLINICAL HISTORY AND PRESENTATION RECOMMENDED. 08/03/2022 11:0 4 AM CDT us [facility] Final Result [facility] [address] [place] [address], [place] [phone] documented in this encounter Visit Diagnoses Diagnosis Breast cancer screening by mammogram- Primary Anxiety Anxiety state, unspecified Heart palpitations Palpitations Low TSH level Nonspecific abnormal results of thyroid function study Anxiety and depression Dysthymic disorder documented in this encounter Additional Health Concerns Assessment Noted Time PHQ-9 Depression Total Score: 17 022 10:11 AM CDT documented as of this encounter Care Teams Motorman/Woman Relationship Specialty [place] [address] [place] [address] PCP - General PHYSICIAN SUMMER NANNY 08/03/22 08/11/23 documented as of this encounter
--- OUTSIDE RECORDS SUMMARY | 2024-10-22 20:34 | XMS_ITS | Encounter Summary ---
Author Organization [facility] Address [address] [place] [address]. [place], [place] [id number] [place] [address] Care Team Providers Care Seafood Preparer Name Role Phone Mera Trevizo Primary Care Provider [phone] Reason for Referral * Imaging (Routine) - Closed Specialty Diagnoses / Procedures Referred By Hussein marrufo Referred To Contact Diagnoses Palpitations Procedures CLINIC - HOLTER MONITOR - ECG UP TO 48 HRS,COMPLETE India Lane MD [facility]. [facility] [address] [place] [address] Phone: tel: fax: [facility] 3 [facility] [address] [place] [address] Phone: tel: fax: Referral ID Status Reason Start Date Expiration Date Visits Re quested Visits Authorized [id number] Closed 08/24/2022 08/24/2023 1 1 Reason for Visit * Reason Comments Palpitations New Consult * Consultation (Routine) - Closed Specialty Diagnoses / Procedures Referred By Hussein marrufo Referred To Contact CARDIOLOGY / Cardiology Diagnoses Heart palpitations Procedures OFFICE/OUTPT VISIT,NEW,LEVL III OFFICE/OUTPT VISIT,NEW,LEVL IV OFFICE/OUTPT VISIT,NEW,LEVL V OFFICE/OUTPT VISIT,EST,LEVL III OFFICE/OUTPT VISIT,EST,LEVL IV OFFICE/OUTPT VISIT,EST,LEVL V [place], [place] [address] [place] [address] Phone: tel: fax: [facility], [facility] [address] [place] [address] Phone: tel: fax: Referral ID Status Reason Start Date Expiration Date V isits Requested Visits Authorized [id number] Closed Specialty Services 08/03/2022 09/02/2023 1 1 Encounter Details Date Type Department Care Team (Late st Contact Info) Description 08/24/2022 1:15 PM CDT Office Visit [facility]Dhiraj ar[facility]uin [facility], [facility] [address] [place] [address] MD [facility]. [facility] [address] [place] [address] Palpitations (New Consult ) Social History Tobacco Use Types Packs/Day [...] Sex Assigned at Female 12/15/2018 11:48 AM HEADER BOSS Legal Sex Female 8:12 PM CDT Gender Identity Female 12/15/2018 11:48 AM HEADER BOSS Sexual Orientation Straight 12/15/2018 11 :21 AM HEADER BOSS Occupation Industry Job Start Date Job End [...] Sign Reading Time Taken Comments Blood Pressure 130/62 08/24/2022 1:11 PM CDT Pulse 102 08/24/2022 1:11 PM CDT Temperature - - Respiratory Rate - - Oxygen Saturation 97% 08/24/2022 1:11 PM CDT Inhaled Oxygen Concentration - - Weight 69.9 kg (154 lb) 08/24/2022 1:11 PM CDT Height 167.6 cm (5' 6 ) 08/24/2022 1:11 PM CDT Body Mass Index 24.86 08/24/2022 1:11 PM CDT documented in this encounter Progress Notes * India Lane MD - 08/24/2022 1:15 PM CDT Chief complaint: Palpitations. This is a referral from VAL Islas Assessment and plan: In summary, Jamir Bowman is here today for evaluation regarding palpitations. Given relatively infrequent symptoms, and unclear etiology, would like to start with a prolonged monitor, and a trans thoracic echocardiogram to evaluate systolic function and evaluate for valvular disease. Thus far we have not documented a clear tachyarrhythmia that correlates with symptoms. We briefly discussed mechanisms of supraventricular tachycardia (AV indigo reentrant tachycardia, AV reentrant tachycardia utilizing a pathway, and atrial tachycardia) among other diagnoses such as sinus tachycardia. 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 We stated and discussed that this is likely the mecahnism for her tachycardia. We will see her back in 3 months to reassess. Thank you for this interesting consultation. History of present illness: I had the pleasure of seeing your patient,Jamir Bowman, for evaluation of palpitations. As you are aware, she is a 46-year-old female with a history of hyperthyroidism and palpitations. She is noting faster heart rates with minimal exertion and at rest. She is in the process to see endocrine but not yet seen them for consultation. Current Outpatient Medications Medication Sig Dispense Refill ??? acidiphilus probiotic [...] MG) BY MOUTH DAILY 45 tablet 3 No current facility-administered medications for this visit. Allergies Allergen Reactions ??? Penicillins Anaphylaxis Can take Amoxicillin has a past medical history of Anxiety, Depression, and Palpitations. Past Surgical History: Procedure Laterality Date ??? DENTAL PROCEDURE tooth extraction Review of Systems Constitutional: Negative for chills, fever, malaise/fatigue and weight loss. HENT: Negative for congestion, nosebleeds and sore throat. Eyes: Negative for blurred vision, photophobia and pain. Respiratory: Negative for cough, hemoptysis, sputum production, shortness of breath and wheezing. Cardiovascular: As per HPI. Gastrointestinal: Negative for abdominal pain, blood in stool, constipation, diarrhea, heartburn, melena, nausea and vomiting. Genitourinary: Negative for dysuria, hematuria and urgency. Musculoskeletal: Negative for myalgias and neck pain. Skin: Negative for rash. Neurological: Negative for dizziness and headaches. Endo/Heme/Allergies: Negative for environmental allergies. Does not bruise/bleed easily. Psychiatric/Behavioral: Negative for depression, substance abuse and suicidal ideas. All other systems reviewed and are negative. Filed Vitals: 08/24/22 1311 BP: 130/62 Pulse: 102 SpO2: 97% Weight: 69.9 kg (154 lb) Height: 5' 6 (1.676 m) Physical Exam Vitals reviewed. Constitutional: Appearance: She is well-developed. Comments: Limited exam due to covid19 pandemic. HENT: Head: Normocephalic. Eyes: Pupils: Pupils are equal, round, and reactive to light. Neck: Vascular: No JVD. Musculoskeletal: General: Normal range of motion. Cervical back: Normal range of motion. Skin: General: Skin is dry. Neurological: Mental Status: She is alert. Psychiatric: Behavior: Behavior normal. Thought Content: Thought content normal. Judgment: Judgment normal. Data reviewed: ECG reviewed in the office today shows normal sinus rhythm, normal intervals, no acute st/t changes, no signs consistant with Brugada pattern, epsilon waves, or preexcitation. documented in this encounter Plan of Treatment Not on file documented as of this encounter Procedures Procedure Name Priority Date/Time Associated Diagnosis Comments ELECTROCARDIOGRAM (NON MIDMARK ACQUIRED) Routine 08/24/2022 1:28 PM CDT Palpitations documented in this encounter Results * CLINIC - HOLTER MONITOR - ECG UP TO 48 HRS,COMPLETE (10/09/2022 1:08 PM HEADER BOSS) [facility] - 10/09/2022 1:08 PM HEADER BOSS [address] [place], [place] ??[address] Phone: ?? Fax: ?? MAGAZINE PUBLISHER REPORT PATIENT NAME: ??Jamir Bowman : ??1975 DATE OF TESTIN09/05/22 - 09/07/22 TYPE OF MONITOR: Mobile Cardiac Telemetry (MCT) PCP: ??VAL ISLAS INTERPRETING DIVORCE MEDIATOR: ??India Lane MD INDICATION: ??Palpitations FINDINGS: Jamir Bowman underwent monitoring for a total of 1 [...] significant arrhythmias. No symptom rhythm correlation. us India Lane MD CV VASCULAR ORDERABLES Final Res ult [facility] * ELECTROCARDIOGRAM (08/24/2022 1:28 PM CDT) 08/24/2022 1:28 PM CDT Narrative [facility] - 08/27/2022 10:15 AM CDT ?[facility], [facility]? [facility] ? Test Date: ?2022-08-24 Pat Name: ? JAMIR BOWMAN ?Department: ?? 112 ? Room: ? Gender: ? Female ? Cartographic Designer: ?? : ?1975 ? Requested By: INDIA LANE Order Number: [id number] ?Reading : ?? India Lane ? Measurements Intervals ?[place] ? Rate: ? 86 ? P: ?64 HI: ? 140 ?QRS: ?86 QRSD: ? 94 ? T: ?70 QT: ? 368 ? QTc: ?441 ? Interpretive Statements SINUS RHYTHM MINIMAL VOLTAGE CRITERIA FOR LVH, CONSIDER NORMAL VARIANT No prior ECG available for comparison Procedure Note India Lane MD - 08/27/2022 [facility], [facility]? [facility] Test Date: 2022-08-24 Pat Name: JAMIR BOWMAN Department: 112 Room: Gender: Female Cartographic Designer: : 1975 Requested By: INDIA LANE Order Number: [id number] Reading MD: India Lane Measurements Intervals [place] Rate: 86 P: 64 HI: 140 QRS: 86 QRSD: 94 T: 70 QT: 368 QTc: 441 Interpretive Statements SINUS RHYTHM MINIMAL VOLTAGE CRITERIA FOR LVH, CONSIDER NORMAL VARIANT No prior ECG available for comparison us India Lane MD PROCEDURES-ORDERABLE NO CHARGE F inal Result [facility] documented in this encounter Visit Diagnoses Diagnosis Palpitations- Primary Hyperthyroidism Thyrotoxicosis without mention of goiter or other cause, without mention of thyrotoxic crisis or storm Palpitations documented in this encounter Additional Health Concerns Assessment Noted Time PHQ-9 Depression Total Score: 17 022 10:11 AM CDT documented as of this encounter Care Teams Seafood Preparer Relationship Specialty [place] [address] [place] [address] PCP - General PHYSICIAN PORCELAIN ENAMELER 08/03/22 08/11/23 documented as of this encounter
--- OUTSIDE RECORDS SUMMARY | 2024-10-22 20:34 | XMS_ITS | Encounter Summary ---
Author Organization [facility] Address [address] [place] [address]. [place], [place] [address] [place] [address] Care Team Providers Care Collar Stitcher Name Role Phone Mera Trevizo Primary Care Provider [phone] Encounter Details Date Type Department Care Team (Late st Contact Info) Description 03/15/2023 Orders Only [facility] Family & Internal Medicine - [place] [address] [place] [address] [place] [address] [place] [address] Social History Tobacco Use Types [...] Sex Assigned at Female 12/15/2018 11:48 AM ROVING SIZER Legal Sex Female 8:12 PM CDT Gender Identity Female 12/15/2018 11:48 AM ROVING SIZER Sexual Orientation Straight 12/15/2018 11 :21 AM ROVING SIZER Occupation Industry Job Start Date Job End [...] as of this encounter Visit Diagnoses Diagnosis Hyperthyroidism- Primary Thyrotoxicosis without mention of goiter or other cause, without mention of thyrotoxic crisis or storm documented in this encounter Additional Health Concerns Assessment Noted Time PHQ-9 Depression Total Score: 15 023 10:20 AM ROVING SIZER documented as of this encounter Care Teams Collar Stitcher Relationship Specialty [place] [address] [place] [address] PCP - General PHYSICIAN FINAL TOUCH UP PAINTER 08/03/22 08/11/23 documented as of this encounter
--- OUTSIDE RECORDS SUMMARY | 2024-10-22 20:34 | XMS_ITS | Encounter Summary ---
Author Organization [facility] Address [address] [place] [address]. [place], [place] [address] [place] [address] Care Team Providers Care Manager Plant Name Role Phone Josefa Rodríguez PA-C Primary Care Provider [phone] Encounter Details Date Type Department Care Team (Late st Contact Info) Description 08/29/2023 Orders Only [facility] [place], [address] [address] Josefa Rodríguez PA-C [address] [facility] [address] [place] [address] Social History Tobacco Use Types [...] Sex Assigned at Female 12/15/2018 11:48 AM HOGSHEAD DUMPER Legal Sex Female 8:12 PM CDT Gender Identity Female 12/15/2018 11:48 AM HOGSHEAD DUMPER Sexual Orientation Straight 12/15/2018 11 :21 AM HOGSHEAD DUMPER 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 Not on file Not on file documented as of this encounter Plan of Treatment Not on file documented as of this encounter Visit Diagnoses Diagnosis Palpitations- Primary Shortness of breath on exertion Shortness of breath documented in this encounter Additional Health Concerns Assessment Noted Time PHQ-9 Depression Total Score: 15 11/26/ 023 10:20 AM HOGSHEAD DUMPER documented as of this encounter Care Teams Manager Plant Relationship Specialty Start Date End Date Josefa Rodríguez PA-C [address] [place] [address] PCP - General PHYSICIAN CREDENTIALING ANALYST 08/12/23 documented as of this encounter
--- OUTSIDE RECORDS SUMMARY | 2024-10-22 20:34 | XMS_ITS | Encounter Summary ---
Author Organization [facility] Address [address] [place] [address]. [place], [place] [address] [place] [address] Care Team Providers Care Hand Stripper Name Role Phone Josefa Rodríguez PA-C Primary Care Provider [phone] Reason for Visit * Reason Onset Date Comments Consult 08/29/2023 CONSULT & 30 DAY MCOT Encounter Details Date Type Department Care Team (Late st Contact Info) Description 08/29/2023 Telephone [facility], [facility] [address] [place], [place] [id number] Marcela Lane MD Three [facility]. [facility] [address] [place] [address] Consult (CONSULT & 30 DAY MCOT) Social History Tobacco Use Types Packs/Day Years [...] Sex Assigned at Female 12/15/2018 11:48 AM BIRTH CERTIFICATE CLERK Legal Sex Female 8:12 PM CDT Gender Identity Female 12/15/2018 11:48 AM BIRTH CERTIFICATE CLERK Sexual Orientation Straight 12/15/2018 11 :21 AM BIRTH CERTIFICATE CLERK Occupation Industry Job Start Date Job End Date [employer] Not on file Not on file Not on file documented as of this encounter Progress Notes * Juliana Callaway - 08/29/2023 2:07 PM CDT LVM TO PLEASE CALL TO SCHEDULE OV /JIMBO AND 30 DAY MCOT/JIMBO documented in this encounter Plan of Treatment Not on file documented as of this encounter Visit Diagnoses Not on filedocumented in this encounter Additional Health Concerns Assessment Noted Time PHQ-9 Depression Total Score: 15 023 10:20 AM BIRTH CERTIFICATE CLERK documented as of this encounter Care Teams Hand Stripper Relationship Specialty Start Date End Date Josefa Rodríguez PA-C [address] [place] [address] PCP - General PHYSICIAN CITY LETTER CARRIER 08/12/23 documented as of this encounter
--- OUTSIDE RECORDS SUMMARY | 2024-10-22 20:34 | XMS_ITS | Encounter Summary ---
Author Organization [facility] Address [address] [place] [address]. [place], [place] [address] [place] [address] Care Team Providers Care Landscape Artist Name Role Phone Mera Trevizo Primary Care Provider + [phone] Reason for Visit * Reason Onset Date Comments Results 10/11/2022 Encounter Details Date Type Department Care Team ([facility] st Contact Info) Description 10/11/[address] [address] Chelsea Engle, RN Results Social History Tobacco Use Types Packs/Day Years [...] Sex Assigned at Female 12/15/2018 11:48 AM LATHE MACHINIST Legal Sex Female 8:12 PM CDT Gender Identity Female 12/15/2018 11:48 AM LATHE MACHINIST Sexual Orientation Straight 12/15/2018 11 :21 AM LATHE MACHINIST 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 No / Unsure 09/12/2022 7:38 AM LATHE MACHINIST documented as of this encounter Progress Notes * Chelsea Engle RN - 10/11/2022 12:15 PM CST No significant arrhythmias. No symptom rhythm correlation. Above message from Dr. Lane (after review of the monitor). I left a voicemail for the patient to call our office. The office number and my extension were provided. 10/16/22 - [employer] message sent to the patient with the above information from Dr. Lane. E MACHINIST E MACHINIST documented in this encounter Plan of Treatment Not on file documented as of this encounter Visit Diagnoses Not on filedocumented in this encounter Additional Health Concerns Assessment Noted Time PHQ-9 Depression Total Score: 17 022 10:11 AM CDT documented as of this encounter Care Teams Landscape Artist Relationship Specialty [place] [address] [place] [address] PCP - General PHYSICIAN BUTCHER SCULLION 08/03/22 08/11/23 documented as of this encounter
--- OUTSIDE RECORDS SUMMARY | 2024-10-22 20:34 | XMS_ITS | Encounter Summary ---
Author Organization [facility] Address [address] [place] [address]. [place], [place] [address] [place] [address] Care Team Providers Care Indigo Vat Tender Cloth Name Role Phone Mera Trevizo Primary Care Provider + [phone] Reason for Visit * Reason Onset Date Comments Consult 08/13/2022 Encounter Details Date Type Department Care Team ([facility] st Contact Info) Description 08/13/[address] [address] Jane Hernandez, RMA Consult Social History Tobacco [...] Sex Assigned at Female 12/15/2018 11:48 AM SKEIN SPOOLER Legal Sex Female 8:12 PM CDT Gender Identity Female 12/15/2018 11:48 AM SKEIN SPOOLER Sexual Orientation Straight 12/15/2018 11 :21 AM SKEIN SPOOLER 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 No / Unsure 08/03/2022 10:00 AM CDT documented as of this encounter Progress Notes * ILIA Couch - 08/13/2022 1:45 PM CDT Returned call and left message to schedule cardiology consult per VAL Michael documented in this encounter Plan of Treatment Not on file documented as of this encounter Visit Diagnoses Not on filedocumented in this encounter Additional Health Concerns Assessment Noted Time PHQ-9 Depression Total Score: 17 022 10:11 AM CDT documented as of this encounter Care Teams Indigo Vat Tender Cloth Relationship Specialty [place] [address] [place] [address] PCP - General PHYSICIAN FLOOR TECHNICIAN 08/03/22 08/11/23 documented as of this encounter
--- OUTSIDE RECORDS SUMMARY | 2024-10-22 20:34 | XMS_ITS | Encounter Summary ---
Author Organization [facility] Address [address] [place] [address]. [place], [place] [address] [place] [address] Care Team Providers Care Front Desk Clerk Name Role Phone Mera Trevizo Primary Care Provider + [phone] Encounter Details Date Type Department Care Team (Latest Contact Info) Description 08/28/2022 Travel Social History Tobacco Use Types Packs/Day [...] Sex Assigned at Female 12/15/2018 11:48 AM STATISTICAL ASSISTANT Legal Sex Female 8:12 PM CDT Gender Identity Female 12/15/2018 11:48 AM STATISTICAL ASSISTANT Sexual Orientation Straight 12/15/2018 11 :21 AM STATISTICAL ASSISTANT Occupation Industry Job Start Date Job End Date [employer] Not on file Not on file [...] documented as of this encounter Care Teams Front Desk Clerk Relationship Specialty [place] [address] [place] [address] PCP - General PHYSICIAN SQL SERVER ARCHITECT 08/03/22 08/11/23 documented as of this encounter
--- OUTSIDE RECORDS SUMMARY | 2024-10-22 20:35 | XMS_ITS | Encounter Summary ---
Author Organization [facility] Address [address] [place] [address]. [place] [address] [place] [address] Care Team Providers Care Chief Creative Officer Name Role Phone Unavailable Primary Care Provider Unavailabl e Encounter Details Date Type Department Care Team (Late st Contact Info) Description 05/01/2017 Abstract [facility] Emergency Room [address] [place] [address] Social History Tobacco Use Types Packs/Day Years Used Date Smoking Tobacco: Never Assessed Comments Unknown Sex and Gender Information Value Date Recorded Sex Assigned at Female 12/15/2018 11:48 AM BOW STAPLER Legal Sex Female 8:12 PM CDT Gender Identity Female 12/15/2018 11:48 AM BOW STAPLER Sexual Orientation Straight 12/15/2018 11 :21 AM BOW STAPLER documented as of this encounter Plan of Treatment Not on file documented as of this encounter Procedures Procedure Name Priority Date/Time Associated Diagnosis Comments COMPREHENSIVE METABOLIC PANEL STAT 05/01/2017 2:30 PM CDT HCG QUANT (SERUM)-CHORIONIC GONADOTROPIN STAT 05/01/2017 2:30 PM CDT BLOOD TYPING, ABO AND RH STAT 05/01/2017 2:30 PM CDT CBC W/DIFF AUTOMATED Routine 05/01/2017 2:30 PM CDT URINALYSIS WI REFLEX TO CULTURE STAT 05/01/2017 2:20 PM CDT documented in this encounter Results * BLOOD TYPING, ABO AND RH (05/01/2017 2:30 PM CDT) Pathologist [facility] ABO/RH AB POSITIVE 05/01/2017 3:03 PM CDT [facility] 05/01/2017 2:30 PM CDT 05/01/2017 2:34 PM CDT us Generic Conversion Md [facility] BLOOD BANK TEST ORDERAB LES Final Result Performing Organization Address [facility] de Phone Number [facility] [address] [place] [address], [place] [phone] * (ABNORMAL) HCG QUANT (SERUM)-CHORIONIC GONADOTROPIN (05/01/2017 2:30 PM CDT) [facility] HCG QUANTITATIVE 9,685(H) <5.0 MIU/ML 05/01/2017 3:03 PM CDT [facility] Comment: NORMAL RANGE FOR NON- PATIENTS: ??LESS THAN 5 ??MIU/ML. AFTER FERT ?? AFTER LMP2 WK ?4 WK ? 5 TO 100 MIU/ML3 WK ?5 WK ? 200 TO 3000 MIU/ML4 WK ?6 WK ? 10,000 TO 80,000 MIU/ML5-12 WK ? 7-14 WK ??90,000 TO 500,000 MIU/ML13-24 WK ?? 15-26 WK ??5000 TO 80,000 MIU/ML26-38 WK ?? 27-40 WK ??3000 TO 15,000 MIU/MLTROPHOBLASTIC DISEASE ??>100,000 MIU/ML SERUM OR PLASMA SPECIMEN / Unknown 05/01/2017 2:30 PM CDT 05/01/2017 2:34 PM CDT us Generic Conversion Md [facility] Final R esult Performing Organization Address City/[facility]/ZIP Co de Phone Number [facility] [address] [place] [address], [place] [phone] * (ABNORMAL) COMPREHENSIVE METABOLIC PANEL (05/01/2017 2:30 PM CDT) [facility] GLUCOSE 92 70 - 99 MG/DL 05/01/2017 2:59 PM CDT [facility] BUN 6(L) 7.0 - 18.7 MG/DL 05/01/2017 2:59 PM CDT [facility] CREATININE S/P/B 0.74 0.60 - 1.10 MG/DL 05/01/2017 2:59 PM CDT [facility] SODIUM S/P/B 138 136 - 145 MMOL/L 05/01/2017 2:59 PM CDT [facility] POTASSIUM S/P/B 3.4(L) 3.5 - 5.1 MMOL/L 05/01/2017 2:59 PM CDT [facility] CHLORIDE S/P/B 105 98 - 107 MMOL/L 05/01/2017 2:59 PM CDT [facility] CO2 20.0(L) 22 - 29 MMOL/L 05/01/2017 2:59 PM CDT [facility] CALCIUM S/P/B 10.0 8.4 - 10.2 MG/DL 05/01/2017 2:59 PM CDT [facility] BILIRUBIN TOTAL S/P/B 0.9 0.2 - 1.2 MG/DL 05/01/2017 2:59 PM CDT [facility] TOTAL PROTEIN S/P/B 7.7 6.4 - 8.3 G/DL 05/01/2017 2:59 PM T [facility] ALBUMIN S/P/B 4.7 3.5 - 5.0 G/DL 05/01/2017 2:59 PM CDT [facility] AST 15 5 - 34 U/L 05/01/2017 2:59 PM CDT [facility] ALT 10 0 - 31 U/L 05/01/2017 2:59 PM CDT [facility] ALKALINE PHOSPHATASE S/P/B 59 30 - 115 U/L 05/01/2017 2:59 PM CDT [facility] ANION GAP 13.0 0 - 24 MMOL/L 05/01/2017 2:59 PM CDT [facility] BUN CREATININE RATIO 8.1 6 - 26 05/01/2017 2:59 PM CDT [facility] OSMOLALITY (CALC) 273 261 - 280 MOSM/KG 05/01/2017 2:59 PM CDT [facility] A/G RATIO 1.6 1.1 - 1.9 RATIO 05/01/2017 2:59 PM CDT [facility] EGFR NON-AFR. AMER. >60 >60 ML/MIN/1.7 3 M2 05/01/2017 2:59 PM CDT [facility] EGFR AFR. AMER. >60 >60 ML/MIN/1.7 3 M2 05/01/2017 2:59 PM T [facility] 05/01/2017 2:30 PM CDT 05/01/2017 2:34 PM CDT us Generic Conversion Md [facility] Final R esult [facility] [address] [place] [address], [place] [phone] * (ABNORMAL) CBC W/DIFF AUTOMATED (05/01/2017 2:30 PM CDT) WBC 8.7 4.8 - 10.8 x10'3/uL 05/01/2017 2:39 PM CDT [facility] RBC 4.03(L) 4.10 - 5.10 x10'6/uL 05/01/2017 2:39 PM CDT [facility] HGB 13.3 12.0 - 16.0 G/DL 05/01/2017 2:39 PM T [facility] HCT 38.7 36 - 46 % 05/01/2017 2:39 PM T [facility] MCV 96.0 80 - 100 FL 05/01/2017 2:39 PM CDT [facility] MCH 33.0 26.0 - 34.0 PG 05/01/2017 2:39 PM CDT [facility] MCHC 34.4 31.0 - 37.0 G/DL 05/01/2017 2:39 PM T [facility] RDW 12.5 11.5 - 14.5 % 05/01/2017 2:39 PM T [facility] PLT 263 150 - 350 x10'3/uL 05/01/2017 2:39 PM T [facility] CBC COMMENT AUTOMATED RBC MORPHOLOGY AND PLATELET EVALUATION NORMAL 05/01/2017 2:39 PM T [facility] NEUTROPHILS % 59.3 50 - 70 % 05/01/2017 2:39 PM T [facility] LYMPHOCYTES % 30.0 18 - 42 % 05/01/2017 2:39 PM T [facility] MONOCYTES % 7.6 2.0 - 11.0 % 05/01/2017 2:39 PM T [facility] EOSINOPHILS 2.5 1.0 - 3.0 % 05/01/2017 2:39 PM T [facility] BASOPHILS 0.6 0.0 - 1.0 % 05/01/2017 2:39 PM T [facility] ABS. NEUTROPHILS TOTAL 5.17 1.69 - 7.81 x10'3/uL 05/01/2017 2:39 PM CDT [facility] 05/01/2017 2:30 PM CDT 05/01/2017 2:34 PM CDT us Generic Conversion Md [facility] Final R esult [facility] [address] [place] [address], [place] [phone] * URINALYSIS WI REFLEX TO CULTURE (05/01/2017 2:20 PM CDT) COLOR (U) YELLOW 05/01/2017 2:46 PM CDT [facility] TRANSPARENCY CLEAR 05/01/2017 2:46 PM CDT [facility] SPECIFIC GRAVITY (U) 1.015 1.002 - 1.030 05/01/2017 2:46 PM CDT [facility] U PH 6.0 4.5 - 8 05/01/2017 2:46 PM CDT [facility] LEUKOCYTES (U) NEGATIVE NEGATIVE 05/01/2017 2:46 PM CDT [facility] NITRITES NEGATIVE NEGATIVE 05/01/2017 2:46 PM CDT [facility] PROTEIN (U) NEGATIVE NEGATIVE 05/01/2017 2:46 PM CDT [facility] URINE GLUCOSE NEGATIVE NEGATIVE 05/01/2017 2:46 PM CDT [facility] KETONES MG/DL (U) NEGATIVE NEGATIVE 05/01/2017 2:46 PM CDT [facility] UROBILINOGEN NORMAL NORMAL EU/DL 05/01/2017 2:46 PM CDT [facility] BILIRUBIN (U) NEGATIVE NEGATIVE 05/01/2017 2:46 PM CDT [facility] BLOOD (U) NEGATIVE NEGATIVE 05/01/2017 2:46 PM CDT [facility] WBC/HPF 0-5 /HPF 05/01/2017 2:46 PM CDT [facility] CULTURE & SENSITIVITY INDICATED? CULTURE IS NOT INDICATED 05/01/2017 2:46 PM CDT [facility] RBC/HPF OCCASIONAL /HPF 05/01/2017 2:46 PM CDT [facility] EPI/HPF 0-5 /HPF 05/01/2017 2:46 PM CDT [facility] BACTERIA (U) TRACE /HPF 05/01/2017 2:46 PM CDT [facility] MUCUS 1+ 05/01/2017 2:46 PM T [facility] 05/01/2017 2:20 PM CDT 05/01/2017 2:34 PM CDT us Generic Conversion Md [facility] URINE ORDERABLES Final Result [facility] [address] [place] [address], [place] [phone] documented in this encounter Visit Diagnoses Diagnosis Other specified diseases and conditions complicating , childbirth and the puerperium documented in this encounter
--- OUTSIDE RECORDS SUMMARY | 2024-10-22 20:35 | XMS_ITS | Encounter Summary ---
Author Organization [facility] Address [address] [place] [address]. [place], [place] [id number] [place] [address] Care Team Providers Care Real Estate Administrative Assistant Name Role Phone Akilah Gardner NP Primary Care Provider Unavailabl e Reason for Visit * Reason Onset Date Comments FYI 09/18/2021 Encounter Details Date Type Department Care Team (Late st Contact Info) Description 09/18/2021 Telephone [facility] Medical Group Multispecialty Care - [address] [place] [address] Akilah Gardner, SENIOR PRINCIPAL PROCESS ENGINEER Social History Tobacco Use Types Packs/Day Years [...] Sex Assigned at Female 12/15/2018 11:48 AM COUNTY PROGRAM TECHNICIAN Legal Sex Female 8:12 PM CDT Gender Identity Female 12/15/2018 11:48 AM COUNTY PROGRAM TECHNICIAN Sexual Orientation Straight 12/15/2018 11 :21 AM COUNTY PROGRAM TECHNICIAN 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 No / Unsure 09/04/2021 8:40 AM CDT documented as of this encounter Progress Notes * Marian Lynn RN - 09/18/2021 11:43 AM CST Noted, thanks TY PROGRAM TECHNICIAN * Aidee Wu LPN - 09/18/2021 11:39 AM CST Centralized schedule have tried to contact pt for scheduling mammo unable order will be good for 30days FYI TY PROGRAM TECHNICIAN documented in this encounter Plan of Treatment Not on file documented as of this encounter Visit Diagnoses Not on filedocumented in this encounter Additional Health Concerns Assessment Noted Time PHQ-9 Depression Total Score: 14 021 8:58 AM CDT documented as of this encounter Care Teams Real Estate Administrative Assistant Relationship Specialty Start Date End Date Akilah Gardner, SENIOR PRINCIPAL PROCESS ENGINEER PCP - General NURSE PRACTITIONER 09/01/21 08/02/22 documented as of this encounter
--- OUTSIDE RECORDS SUMMARY | 2024-10-22 20:35 | XMS_ITS | Encounter Summary ---
Author Organization [facility] Address [address] [place] [address]. [place] [id number] [place] [address] Care Team Providers Care Internet Sales Manager Name Role Phone Unavailable Primary Care Provider Unavailabl e Encounter Details Date Type Department Care Team (Latest Contact Info) Description 07/26/2017 Abstract [facility] Medical [facility] Social History Tobacco Use Types Packs/Day Years Used Date Smoking Tobacco: Never Assessed Comments Unknown Sex and Gender Information Value Date Recorded Sex Assigned at Female 12/15/2018 11:48 AM PUBLIC RELATIONS ASSOCIATE Legal Sex Female 8:12 PM CDT Gender Identity Female 12/15/2018 11:48 AM PUBLIC RELATIONS ASSOCIATE Sexual Orientation Straight 12/15/2018 11 :21 AM PUBLIC RELATIONS ASSOCIATE documented as of this encounter Plan of Treatment Not on file documented as of this encounter Visit Diagnoses Not on filedocumented in this encounter
--- OUTSIDE RECORDS SUMMARY | 2024-10-22 20:35 | XMS_ITS | Encounter Summary ---
Author Organization [facility] Address [address] [place] [address]. [place], [place] [id number] [place] [id number] Care Team Providers Care Inspector [employer] Wafer Name Role Phone Akilah Pabon NP Primary Care Provider Unavailabl e Reason for Referral * Imaging (Routine) - Closed Specialty Diagnoses / Procedures Referred By Hussein marrufo Referred To Contact RADIOLOGY Diagnoses Encounter for screening mammogram for malignant neoplasm of breast Procedures MG SCREENING W MICAH SOHAM DIGI Akilah Pabon, OTONIEL Referral ID Status Reason Start Date Expiration Date Visits Re quested Visits Authorized [id number] Closed 08/27/2022 08/27/2023 1 1 Reason for Visit * Reason Comments Meet and Greet Provider establish care/d iscuss medications previous Isatu Hong patient Encounter Details Date Type Department Care Team (Late st Contact Info) Description 09/04/2021 8:40 AM CDT Office Visit [facility] Family & Internal Medicine [address] [phone] Akilah Pabon, OTONIEL Meet and Greet Provider (establish care/discuss medications previous Isatu Hong patient ) Social History Tobacco Use Types Packs/Day [...] Sex Assigned at Female 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 No / Unsure 09/04/2021 8:40 AM CDT documented as of this encounter Last Filed Vital Signs Vital Sign Reading Time Taken Comments Blood Pressure 102/70 09/04/2021 8:47 AM CDT Pulse 92 09/04/2021 8:47 AM CDT Temperature 35.9 ??C (96.7 ??F) 09/04/2021 8:47 AM CD T Respiratory Rate 18 09/04/2021 8:47 AM CDT Oxygen Saturation 98% 09/04/2021 8:47 AM CDT Inhaled Oxygen Concentration - - Weight 72.7 kg (160 lb 3.2 oz) 09/04/2021 8:47 A M CDT Height 167.6 cm (5' 6 ) 09/04/2021 8:47 AM CDT Body Mass Index 25.86 09/04/2021 8:47 AM CDT documented in this encounter Patient Instructions * Patient Instructions* Akilah Pabon NP - 09/04/2021 8:40 AM CDT Images from the original note were not included. Patient Education Depression The Basics Written by the doctors and editors at [facility] What is depression???--??Depression is a disorder that makes you sad, but it is different than normal sadness (figure 1). Depression can make it hard for you to work, study, or do everyday tasks. How do I know if I am depressed???--??Depressed people feel down most of the time for at least 2 weeks. They also have at least 1 of these 2 symptoms: ?? They no longer enjoy or care about doing the things they used to like to do. ?? They feel sad, down, hopeless, or cranky most of the day, almost every day. Depression can also make you: ?? Lose or gain weight ?? Sleep too much or too little ?? Feel tired or like you have no energy ?? Feel guilty or like you are worth nothing ?? Forget things or feel confused ?? Move and speak more slowly than usual ?? Act restless or have trouble staying still ?? Think about or suicide If you think you might be depressed, see your doctor or nurse. Only someone trained in mental health can tell for sure if you are depressed. See someone right away if you want to hurt or kill yourself!??--??If you ever feel like you might hurt yourself or someone else, do one of these things: ?? Call your doctor or nurse and tell them it is urgent ?? Call for an ambulance (in the [place] and [place], dial 9-1-1) ?? Go to the emergency room at your local hospital ?? Call the National Suicide Prevention Lifeline: ? ? www.suicidepreventionlifeline.org What are the treatments for depression???--??People who have depression can get 1 or more of the following treatments: ?? Medicines that relieve depression ?? Counseling (with a psychiatrist, psychologist, nurse, or social director) ?? A device that passes magnetic waves or electricity into the brain People with depression that is not too severe can get better by taking medicines or talking with a counselor. People with severe depression usually need medicines to get better, and might also need to see a counselor. Another treatment involves placing a device against the scalp to pass magnetic waves into the brain. This is called transcranial magnetic stimulation or TMS. Doctors might suggest TMS if medicines and counseling have not helped. Some people whose depression is severe might need a treatment called electroconvulsive therapy or ECT. During ECT, doctors pass an electric current through a person's brain in a safe way. When will I feel better???--??Both treatment options take a little while to start working. ?? Many people who take medicines start to feel better within 2 weeks, but it might be 4 to 8 weeksbefore the medicine has its full effect. ?? Many people who see a counselor start to feel better within a few weeks, but it might take 8 to 10 weeks to get the greatest benefit. If the first treatment you try does not help you, tell your doctor or nurse, but do not give up. Some people need to try different treatments or combinations of treatments before they find an approach that works. Your doctor, nurse, or counselor can work with you to find the treatment that is rightfor you. They can also help you figure out how to cope while you search for the right treatment or are waiting for your treatment to start working. How do I decide which treatment to have???--??You and your doctor or nurse will need to work together to choose a treatment for you. Medicines might work a little faster than counseling. But medicines can also cause side effects. Plus, some people do not like the idea of taking medicine. On the other hand, seeing a counselor involves talking about your feelings with a stranger. That ishard for some people. Is depression the same for teenagers???--??No. The symptoms of depression are a little different for teenagers than they are for adults. Some teenagers are rebolledo or sad a lot of the time. That makes it hard to tell when they are really depressed. Teenagers who are depressed often seem cranky. They get easily annoyed or bothered. They might even pick fights with people. Also, when treating a teenager, doctors and nurses usually suggest trying counseling first, before trying medicine. That's because there is a small chance that depression medicines can cause problems for some teenagers. Even so, some depressed teenagers need medicine. And most experts agree that depression medicine is safe and appropriate to use in teenagers who really need it. What if I take medicine for depression and I want to have a baby???--??Some depression medicines can cause problems for an unborn baby. But having untreated depression during can also causeproblems. If you want to get , tell your doctor but do not stop taking your medicines. The two of you can plan the safest way for you to have your baby. It's also important to talk with your doctor if you want to breastfeed after your baby is born. has lots of benefits for both mother and baby. Some depression medicines are safer than others to use while . But having untreated depression after giving can also cause problems, so do not stop taking your medicines. Your doctor can work with you to plan the safest wayfor you to feed your baby. All topics are updated as new evidence becomes available and our peer review process is complete. This topic retrieved from [employer] on: Jun 22, 2021. Topic 69311 Version 16.0 Release: 29.4.2 - C29.229 ?2020??[employer] and/or its affiliates.??All rights reserved. figure 1: Mood disorders caused by problems in the brain Mood disorders, such as depression and bipolar disorder, are caused by chemical imbalances in the brain. Treatments for these conditions work by changing the chemistry of the brain. Graphic 20490 Version 3.0 Consumer Information Use and Disclaimer This information is not specific medical advice and does not replace information you receive from your health care provider. This is only a brief summary of general information. It does NOT include all information about conditions, illnesses, injuries, tests, procedures, treatments, therapies, discharge instructions or life-style choices that may apply to you. You must talk with your health care provider for complete information about your health and treatment options. This information should not be used to decide whether or not to accept your health care provider's advice, instructions or recommendations. Only your health care provider has the knowledge and training to provide advice that is right for you. The use of this information is governed by the [employer] End User License Agreement, available at https://www.SageMetrics.Plug Apps/en/solutions/MagMe/about/ismael.The use of [employer] content is governed by the [employer] Terms of Use. ??2020 [employer]. All rights reserved. Copyright ?2020??[employer] and/or its affiliates.??All rights reserved. Blood work today and will call with results Continue Zoloft 150 mg daily Flu shot today Get screening mammogram Follow up in 2 months or sooner if needed documented in this encounter Progress Notes * Akilah Pabon NP - 09/04/2021 8:40 AM CDT Reason for Visit: Meet and Greet Provider (establish care/discuss medications previous Isatu Hal patient ) History of Present Illness: Frances Maguire is a 45-year-old female here to establish care and for her annual exam. Pt saw Isatu Hong in the past. She has a history of anxiety and depression ans is well controlled on Zoloft and needs a refill today. Has a history of herpes simplex and takes valtrex for flares. 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 Negative for fatigue and fever. HENT: Negative. Eyes: Negative. Respiratory: Negative. Negative for cough and shortness of breath. Cardiovascular: Negative. Negative for chest pain. Gastrointestinal: Negative for abdominal pain. Endocrine: Negative. Genitourinary: Negative. Musculoskeletal: Negative. Negative for back pain. Skin: Negative. Allergic/Immunologic: Negative. Negative for environmental allergies. Neurological: Negative. Hematological: Negative for adenopathy. Psychiatric/Behavioral: Negative. Negative for suicidal ideas (Denies). Depression and anxiety controlled with medications Medications: Current Outpatient Medications: ??? acidiphilus probiotic tablet, Take 2 tablets by mouth daily., Disp: , Rfl: ??? acyclovir 400 MG tablet, Take 1 tablet (400 mg total) by mouth daily., Disp: 90 tablet, Rfl: 1 ??? MAGNESIUM ASPARTATE OR, Take 400 mg by mouth daily., Disp: , Rfl: ??? multi vitamin/minerals tablet, Take 1 tablet by mouth 2 (two) times daily. , Disp: , Rfl: ??? sertraline 100 MG tablet, Take 1.5 tablets (150 mg total) by mouth daily., Disp: 45 tablet, Rfl: 1 ??? sertraline 50 MG tablet, Take 1.5 tablets (75 mg total) by mouth daily., Disp: 135 tablet, Rfl:2 Allergies Allergen Reactions ??? Penicillins Anaphylaxis Can take Amoxicillin History reviewed. No pertinent past medical history. Past Surgical History: Procedure Laterality Date ??? DENTAL PROCEDURE tooth extraction Social History Socioeconomic History ??? Marital status: Single Spouse name: Not on file ??? Number of children: 1 ??? Years of education: Not on file ??? Highest education level: Some college, no degree Occupational History ??? Occupation: [employer] Tobacco Use ??? Smoking status: Current Every Day Smoker Packs/day: 0.25 Types: Cigarettes Start date: 1994 ??? Smokeless tobacco: Never Used ??? Tobacco comment: trying to cut back Substance and Sexual Activity ??? Alcohol use: Yes ??? Drug use: No ??? Sexual activity: Never Other Topics Concern ??? Service No ??? Blood Transfusions No ??? Caffeine Concern No ??? Occupational Exposure No ??? Hobby Hazards No ??? Sleep Concern No ??? Stress Concern No ??? Weight Concern No ??? Special Diet No ??? Back Care No ??? Exercise Yes ??? Bike Helmet No ??? Seat Belt Yes ??? Self-Exams No ??? Wheelchair No ??? Walker No ??? Upper extremity braces/slings No ??? Lower extermity braces/slings No ??? Self Care Yes Social History Narrative Lives at home with her son Social Determinants of Health Financial Resource Strain: ??? Difficulty of Paying Living Expenses: Food Insecurity: ??? Worried About Running Out of Food in the Last Year: ??? Ran Out of Food in the Last Year: Transportation Needs: ??? Lack of Transportation (Medical): ??? Lack of Transportation (Non-Medical): Physical Activity: ??? Days of Exercise per Week: ??? Minutes of Exercise per Session: Stress: ??? Feeling of Stress : Social Connections: ??? Frequency of Communication with Friends and Family: ??? Frequency of Social Gatherings with Friends and Family: ??? Attends Anabaptism Services: ??? Active Member of Clubs or Organizations: ??? Attends Club or Organization Meetings: ??? Marital Status: Intimate Partner Violence: ??? Fear of Current or Ex-Partner: ??? Emotionally Abused: ??? Physically Abused: ??? Sexually Abused: Family History Problem Relation Name Age of Onset ??? Cancer Mother breast ??? Cancer Father prostate ??? Heart Father ??? Anxiety Father Family Status Relation Name Status ??? Mother Alive ??? Father Alive PHQ-9: Over the last two weeks, how often have you been bothered by any of the following problems? 06/23/2020 09/04/2021 LITTLE INTEREST OR PLEASURE IN DOING THINGS 0-Not at All - FEELING DOWN, DEPRESSSED,OR HOPELESS 0-Not at All - PHQ2 DEPRESSION TOTAL SCORE 0 - TROUBLE FALLING OR STAYING ASLEEP OR SLEEPING TOO MUCH 1-Several Days 1-Several Days FEELING TIRED OR HAVING LITTLE ENERGY 3-Nearly every day 3-Nearly every day POOR APPETITE OR OVEREATING 0-Not at All 3-Nearly every day FEELING BAD ABOUT YOURSELF 0-Not at All 2-More than half the days TROUBLE CONCENTRATING ON THINGS 0-Not at All 3-Nearly every day MOVING OR SPEAKING SO SLOWLY THAT OTHER PEOPLE COULD HAVE NOTICED 1-Several Days 1-Several Days THOUGHTS THAT YOU WOULD BE BETTER OFF 0-Not at All 1-Several Days DEPRESSION SCREENING TOTAL SCORE 5 14 IF YOU CHECKED OFF ANY PROBLEMS Not difficult at all Somewhat difficult Filed Vitals: 09/04/21 0847 BP: 102/70 Pulse: 92 Resp: 18 Temp: 96.7 ??F (35.9 ??C) TempSrc: Temporal SpO2: 98% Weight: 72.7 kg (160 lb 3.2 oz) Height: 5' 6 (1.676 m) Physical Exam Constitutional: She is oriented to person, place, and time. She appears well- developed and well-nourished. HENT: Head: Normocephalic. Eyes: Pupils are equal, round, and reactive to light. Neck: No thyromegaly present. Cardiovascular: Normal rate, regular rhythm and normal heart sounds. No murmur heard. Pulmonary/Chest: Effort normal and breath sounds normal. No respiratory distress. She has no wheezes. She exhibits no tenderness. Abdominal: Soft. Bowel sounds are normal. She exhibits no mass. There is no abdominal tenderness. There is no guarding. Musculoskeletal: General: No tenderness or edema. Normal range of motion. Cervical back: Normal range of motion. Lymphadenopathy: She has no cervical adenopathy. Neurological: She is alert and oriented to person, place, and time. She displays normal reflexes. Coordination normal. Skin: Skin is warm and dry. No rash noted. No erythema. Psychiatric: Her behavior is normal. Judgment and thought content normal. Nursing note and vitals reviewed. Assessment Encounter Diagnose(s) ICD-10-CM ICD-9-CM SNOMED CT(R) 1. Annual physical exam Z00.00 V70.0 PATIENT ENCOUNTER STATUS CBC W/DIFF AUTOMATED COMPREHENSIVE METABOLIC PANEL LIPID PANEL VITAMIN D, 25 OH ALBUMIN URINE RANDOM VENIPUNC ARM DRAW 2. Body mass index 25.0-25.9, adult Z68.25 V85.21 BODY MASS INDEX 25-29 - OVERWEIGHT 3. Anxiety and depression F41.9 300.00 MIXED ANXIETY AND DEPRESSIVE DISORDER TSH W/REFLEX F32.A 311 sertraline 50 MG tablet sertraline 100 MG tablet 4. Herpes simplex B00.9 054.9 HERPES SIMPLEX 5. Encounter for screening mammogram for malignant neoplasm of breast Z12.31 V76.12 PATIENT ENCOUNTER STATUS MG SCREENING SOHAM DIGI 6. Need for immunization against influenza Z23 V04.81 NEEDS INFLUENZA IMMUNIZATION [94442] FLU VACCQUAD 6 MONTHS+ 0.5 ML (SINGLE DOSE SYRINGE FLUZONE, FLUARIX, FLULAVAL OR SINGLE DOSE VIAL FLUZONE) Recommendations and Plan: Blood work today and will call with results Continue Zoloft 150 mg daily Flu shot today Get screening mammogram Follow up in 2 months or sooner if needed 1. Annual physical exam Patient past medical, surgical, family history and social history updated. Allergies, immunizationsand medications updated. Also did discuss healthy lifestyle including exercising, dietary changes and safe sexual practices as well as safe habits common to patient age group including wearing seat belt when transporting in a vehicle and limiting alcohol and avoiding smoking/second hand smoking. - CBC W/DIFF AUTOMATED; Future - COMPREHENSIVE METABOLIC PANEL; Future - LIPID PANEL; Future - VITAMIN D, 25 OH; Future - ALBUMIN URINE RANDOM; Future 2. Body mass index 25.0-25.9, adult As above 3. Anxiety and depression Continue all medications - TSH W/REFLEX; Future - sertraline 50 MG tablet; Take 1.5 tablets (75 mg total) by mouth daily. Dispense: 135 tablet; Refill: 2 - sertraline 100 MG tablet; Take 1.5 tablets (150 mg total) by mouth daily. Dispense: 45 tablet; Refill: 1 4. Herpes simplex Take Valtrex as prescribed prn 5. Encounter for screening mammogram for malignant neoplasm of breast - MG SCREENING SOHAM DIGI 6. Need for immunization against influenza - [03582] FLU VACC QUAD 6 MONTHS+ 0.5 ML (SINGLE DOSE SYRINGE FLUZONE, FLUARIX, FLULAVAL OR SINGLE DOSE VIAL FLUZONE) AKILAH PABON NP 09/04/2021 1:13 PM documented in this encounter Plan of Treatment Scheduled Orders Name Type Priority Associated Diagnoses Orde r Schedule MG SCREENING W MICAH SOHAM DIGI MAMMO Routine Encounter for screening mammogram for malignant neoplasm of breast 08/27/2022 documented as of this encounter Procedures Procedure Name Priority Date/Time Associated Diagnosis Comments VENIPUNC ARM DRAW Routine 09/04/2021 11:40 AM CDT Annual physical exam documented in this encounter Results * ALBUMIN URINE RANDOM (09/04/2021 10:08 AM CDT) CREATININE (U) 131.4 28 - 217 MG/DL 09/04/2021 2:18 PM CDT [facility] MICROALBUMIN (U) 0.5 <2.0 mg/dL 09/04/20 21 2:18 PM CDT [facility] ALBUMIN/CREAT RATIO 3.8 <30.0 MG/G 09/04/2021 2:18 PM CDT [facility] URINE SPECIMEN / Unknown 09/04/2021 10:08 AM CDT us Akilah Pabon NP URINE ORDERABLES Final Result Performing Organization Address [facility] de Phone Number [facility] [address] [place] [address], [place] [phone] * (ABNORMAL) VITAMIN D, 25 OH (09/04/2021 10:08 AM CDT) VITAMIN D 25 HYDROXY S/P/B 29(L) 30 - 100 NG/ML 09/04/2021 2:25 PM CDT [facility] Comment: ? INTERPRETATION ? DEFICIENT ??<20 ? INSUFFICIENT 20-29 ?SUFFICIENT 30-100 09/04/2021 10:0 8 AM CDT us Akilah Pabon NP LABORATORY Final Result Performing Organization Address [facility] de Phone Number [facility] [address] [place] [address], [place] [phone] * (ABNORMAL) TSH W/REFLEX (09/04/2021 10:08 AM CDT) TSH <0.007(L) 0.358 - 3.74 uIU/ML 09/04/2021 3:58 PM CDT [facility] Comment: HIGH DOSES OF BIOTIN MAY INTERFERE WITH THIS TEST RESULT. CORRELATION TO CLINICAL HISTORY AND PRESENTATION RECOMMENDED. 09/04/2021 10:0 8 AM CDT us Akilah Pabon NP LABORATORY Final Result Performing Organization Address [facility] de Phone Number [facility] [address] [place] [address], * (ABNORMAL) LIPID PANEL (09/04/2021 10:08 AM CDT) [facility] Signature CHOLESTEROL 181 <200.0 MG/DL 09/04/2021 3:57 PM CDT [facility] TRIGLYCERIDES 123 <150 MG/DL 09/04/2021 3:57 PM CDT [facility] HDL 46 >40.0 MG/DL 09/04/2021 3:57 PM T [facility] LDL (CALCULATED) 110(H) <100 MG/DL 09/04/2021 3:57 PM T [facility] NON HDL CHOLESTEROL 135(H) <130 MG/DL 09/04/2021 3:57 PM T [facility] CHOL/HDL RATIO 3.9 0.0 - 4.5 09/04/2021 3:57 PM T [facility] VLDL CALCULATION 25 5 - 55 MG/DL 09/04/2021 3:57 PM T [facility] LIPID INTERPRETATION 09/04/2021 3:57 PM T [facility] Comment: NIH CONCENSUS [...] ?HDL ?<40 ?--- ?LDL ? >=160 ?>=130 09/04/2021 10:0 8 AM CDT Akilah Pabon NP LABORATORY Final Result Performing Organization Address [facility]/State/ZIP Co de Phone Number [facility] [address] [place] [address], * (ABNORMAL) COMPREHENSIVE METABOLIC PANEL (09/04/2021 10:08 AM CDT) GLUCOSE 97 70 - 99 MG/DL 09/04/2021 3:57 PM CDT [facility] BUN 12 7 - 18 MG/DL 09/04/2021 3:57 PM CDT [facility] CREATININE S/P/B 0.53(L) 0.55 - 1.02 MG/DL 09/04/2021 3:57 PM CDT [facility] SODIUM S/P/B 143 136 - 145 MMOL/L 09/04/2021 3:57 PM CDT [facility] POTASSIUM S/P/B 4.6 3.5 - 5.1 MMOL/L 09/04/2021 3:57 PM T [facility] CHLORIDE S/P/B 106 100 - 108 MMOL/L 09/04/2021 3:57 PM T [facility] CO2 30.1 21 - 32 MMOL/L 09/04/2021 3:57 PM T [facility] CALCIUM S/P/B 9.5 8.5 - 10.1 MG/DL 09/04/2021 3:57 PM T [facility] BILIRUBIN TOTAL S/P/B 0.4 0.2 - 1.2 MG/DL 09/04/2021 3:57 PM T [facility] TOTAL PROTEIN S/P/B 6.5 6.4 - 8.2 G/DL 09/04/2021 3:57 PM T [facility] ALBUMIN S/P/B 3.9 3.4 - 5.0 G/DL 09/04/2021 3:57 PM T [facility] AST 19 15 - 37 U/L 09/04/2021 3:57 PM [facility] ALT 24 14 - 55 U/L 09/04/2021 3:57 PM [facility] ALKALINE PHOSPHATASE S/P/B 101 50 - 136 U/L 09/04/2021 3:57 PM T [facility] ANION GAP 6.9 5 - 15 MMOL/L 09/04/2021 3:57 PM T [facility] BUN CREATININE RATIO 22.6 6 - 26 09/04/2021 3:57 PM T [facility] A/G RATIO 1.5 1.0 - 2.0 RATIO 09/04/2021 3:57 PM CDT [facility] EGFR NON-AFR. AMER. >90 >90 ML/MIN/1.7 3 M2 09/04/2021 3:57 PM CDT [facility] EGFR AFR. AMER. >90 >90 ML/MIN/1.7 3 M2 09/04/2021 3:57 PM CDT [facility] Comment: NOTE: eGFR is not calculated for patients <18 years of age. This is an estimated GFR (CKD EPI) and should not be used for calculating drug doses. 09/04/2021 10:0 8 AM CDT Akilah Pabon NP LABORATORY Final Result [facility] [address] [place] [address], [place] [phone] * (ABNORMAL) CBC W/DIFF AUTOMATED (09/04/2021 10:08 AM CDT) WBC 4.5 4.4 - 11.0 x10'3/uL 09/04/2021 1:53 PM CDT [facility] RBC 4.35(L) 4.50 - 5.10 x10'6/uL 09/04/2021 1:53 PM CDT [facility] HGB 13.2 12.3 - 15.3 G/DL 09/04/2021 1:53 PM CDT [facility] HCT 39.8 35.9 - 44.6 % 09/04/2021 1:53 PM CDT [facility] MCV 91.5 80.0 - 96.0 FL 09/04/2021 1:53 PM CDT [facility] MCH 30.3 25.3 - 30.9 PG 09/04/2021 1:53 PM CDT [facility] MCHC 33.2 31.0 - 34.1 G/DL 09/04/2021 1:53 PM CDT [facility] RDW 12.0(L) 12.4 - 15.1 % 09/04/2021 1:53 PM CDT [facility] PLT 121(L) 151 - 353 x10'3/uL 09/04/2021 1:53 PM CDT [facility] MPV 12.4(H) 9.6 - 12.0 FL 09/04/2021 1:53 PM CDT [facility] RBC MORPHOLOGY NORMAL 09/04/2021 1:53 PM CDT [facility] PLT MORPH. NORMAL 09/04/2021 1:53 PM CDT [facility] WBC MORPHOLOGY NORMAL 09/04/2021 1:53 PM CDT [facility] LYMPHOCYTES % 40.6 15.8 - 45.0 % 09/04/2021 1:53 PM CDT [facility] NEUTROPHILS % 44.9 42.1 - 71.9 % 09/04/2021 1:53 PM CDT [facility] MONOCYTES % 9.3 5.7 - 12.5 % 09/04/2021 1:53 PM CDT [facility] EOSINOPHILS 4.6 0.0 - 5.6 % 09/04/2021 1:53 PM CDT [facility] BASOPHILS 0.4 0.0 - 1.3 % 09/04/2021 1:53 PM CDT [facility] ABS. NEUTROPHILS 2.03 1.40 - 6.00 x10'3/uL 09/04/2021 1:53 PM CDT [facility] IMMATURE GRANS % 0.2 0.0 - 0.5 % 09/04/2021 1:53 PM CDT [facility] ABS. LYMPHOCYTES 1.84 0.80 - 4.70 x10'3/uL 09/04/2021 1:53 PM CDT [facility] 09/04/2021 10:0 8 AM CDT us Akilah Pabon FOREST LOGISTICS MANAGER LABORATORY Final Result Performing Organization Address City/State/[facility] Co de Phone Number [facility] [address] [place] [address], [place] [phone] documented in this encounter Visit Diagnoses Diagnosis Annual physical exam- Primary Routine general medical examination at a health care facility Body mass index 25.0-25.9, adult Body Mass Index 25.0-25.9, adult Anxiety and depression Dysthymic disorder Herpes simplex Herpes simplex without mention of complication Encounter for screening mammogram for malignant neoplasm of breast Other screening mammogram Need for immunization against influenza Need for prophylactic vaccination and inoculation against influenza documented in this encounter Additional Health Concerns Assessment Noted Time PHQ-9 Depression Total Score: 14 021 8:58 AM CDT documented as of this encounter Care Teams Inspector Semiconductor Wafer Relationship Specialty Start Date End Date Akilah Pabon, FOREST LOGISTICS MANAGER PCP - General NURSE PRACTITIONER 09/01/21 08/02/22 documented as of this encounter
--- OUTSIDE RECORDS SUMMARY | 2024-10-22 20:35 | XMS_ITS | Encounter Summary ---
Author Organization [facility] Address [address] [place] [address]. [place] [address] [place] [address] Care Team Providers Care Seal Delivery Vehicle Team Technician Name Role Phone Unavailable Primary Care Provider Unavailabl e Encounter Details Date Type Department Care Team (Late st Contact Info) Description 07/02/2017 Abstract [facility] [address] [place] [address] Aidee Gray, SUEDING MACHINE OPERATOR [address] [place] [address] Social History Tobacco Use Types Packs/Day Years Used Date Smoking Tobacco: Never Assessed Comments Unknown Sex and Gender Information Value Date Recorded Sex Assigned at Female 12/15/2018 11:48 AM REPAIR MECHANIC Legal Sex Female 8:12 PM CDT Gender Identity Female 12/15/2018 11:48 AM REPAIR MECHANIC Sexual Orientation Straight 12/15/2018 11 :21 AM REPAIR MECHANIC documented as of this encounter Plan of Treatment Not on file documented as of this encounter Procedures Procedure Name Priority Date/Time Associated Diagnosis Comments SYPHILIS IGG AB Routine 07/02/2017 12:44 PM CDT HIV - RAPID Routine 07/02/2017 12:44 PM CDT HEPATITIS B SURFACE AG, EIA Routine 07/02/2017 12:44 PM CDT documented in this encounter Results * HEPATITIS B SURFACE AG, EIA (07/02/2017 12:44 PM CDT) HEPATITIS B SURFACE AG NON-REACTI VE NON-REACTI VE 07/02/2017 6:37 PM CDT [facility] Comment: ??TESTING PERFORMED [facility] [place] [address] SERUM OR PLASMA SPECIMEN / Unknown 07/02/2017 12:44 PM CDT 07/02/2017 12:45 PM CDT us Generic Conversion [facility] Final R neva [facility] [address] [place] [address], [place] [phone] * HIV - RAPID (07/02/2017 12:44 PM CDT) HIV RAPID NON-REACTIV E NON-REACTI VE 07/02/2017 1:31 PM CDT [facility] 07/02/2017 12:4 4 PM CDT 07/02/2017 12:45 PM CDT us Generic Conversion [facility] Final R eskwasi Performing Organization Address City/[facility]/ZIP Co de Phone Number [facility] [address] [place] [address], [place] [phone] * SYPHILIS IGG AB (07/02/2017 12:44 PM CDT) SYPHILIS IGG AB NON-REACTI VE NON-REACTI VE 07/05/2017 3:16 PM CDT [facility] Comment: ??TESTING PERFORMED [facility] [place] [address] SERUM SPECIMEN / Unknown 07/02/2017 12:44 PM CDT 07/02/2017 12:45 PM CDT us Generic Conversion [facility] Final R neva [facility] [address] [place] [address], documented in this encounter Visit Diagnoses Diagnosis Encounter for screening for infections with predominantly sexual mode of transmission Screening examination for venereal disease documented in this encounter
--- OUTSIDE RECORDS SUMMARY | 2024-10-22 20:35 | XMS_ITS | Encounter Summary ---
Author Organization [facility] Address [address] [place] [address]. [place] [id number] Care Team Providers Care Outreach Librarian Name Role Phone Jazmyne Hong KEY ENTRY OPERATOR Primary Care Provider Unav ailable Reason for Visit * Reason Comments Shoulder Pain continued right shou lder pain Encounter Details Date Type Department Care Team (Late st Contact Info) Description 07/07/2020 3:40 PM CDT Office Visit [facility] Family & Internal Medicine [address] [address] Jazmyne Hong NP Shoulder Pain (continued right shoulder pain) Social History Tobacco Use Types Packs/Day Years [...] Sex Assigned at Female 12/15/2018 11:48 AM PAIN MANAGEMENT PHYSICIAN Legal Sex Female 8:12 PM CDT Gender Identity Female 12/15/2018 11:48 AM PAIN MANAGEMENT PHYSICIAN Sexual Orientation Straight 12/15/2018 11 :21 AM PAIN MANAGEMENT PHYSICIAN Occupation Industry Job Start Date Job End Date [employer] Not on file Not on file Not on file COVID-19 Exposure Response Date Recorded In the last month, have you been in contact with someone who was confirmed or suspected to have Coronavirus / COVID-19? No / Unsure 07/07/2020 3:43 PM CDT documented as of this encounter Last Filed Vital Signs Vital Sign Reading Time Taken Comments Blood Pressure 104/66 07/07/2020 3:49 PM CDT Pulse 99 07/07/2020 3:49 PM CDT Temperature 36.2 ??C (97.1 ??F) 07/07/2020 3:49 PM CD T Respiratory Rate 16 07/07/2020 3:49 PM CDT Oxygen Saturation 98% 07/07/2020 3:49 PM CDT Inhaled Oxygen Concentration - - Weight 71.3 kg (157 lb 3.2 oz) 07/07/2020 3:49 P M CDT Height 167.6 cm (5' 6 ) 07/07/2020 3:49 PM CDT Body Mass Index 25.37 07/07/2020 3:49 PM CDT documented in this encounter Progress Notes * Jazmyne Hong, OTONIEL - 07/07/2020 3:40 PM CDT Images from the original note were not included. Office Progress Note Reason for Visit: Shoulder Pain (continued right shoulder pain) History of Present Illness: Frances is a 44 year old female who presents today for c/o pain to right shoulder that started last Saturday (8 days ago). 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 She states she has been out of work since last Saturday because when she moves her arm, it winkler and is much weaker. She states she has been taking naproxen as advised when shewas seen one week ago and the naproxen has helped slightly. She has been resting her arm and off work since last Saturday and she states it is slightly better, she is able to reach up over her head andshe is able to fasten her bra now. She is wanting to know when she should return to work. Shoulder Pain The incident occurred at work. The right shoulder is affected. The incident occurred more than 1 week ago. The injury mechanism was repetitive motion. The quality of the pain is described as aching and burning. The pain radiates to the right arm. The pain is moderate. Pertinent negatives include nochest pain, muscle weakness, numbness or tingling. The symptoms are aggravated by movement, overhead lifting and palpation. She has tried ice, NSAIDs and non-weight bearing for the symptoms. The treatment provided mild relief. ROS: Review of Systems Constitutional: Negative. Negative for chills, diaphoresis, fever and malaise/fatigue. HENT: Negative. Negative for congestion, sinus pain and sore throat. Eyes: Negative. Negative for discharge and redness. Respiratory: Negative. Negative for cough, sputum production and shortness of breath. Cardiovascular: Negative. Negative for chest pain and leg swelling. Gastrointestinal: Negative. Genitourinary: Negative. Musculoskeletal: Positive for joint pain and myalgias. Skin: Negative. Negative for itching and rash. Neurological: Positive for weakness. Negative for dizziness, tingling, tremors, sensory change, speech change, focal weakness, numbness and headaches. Endo/Heme/Allergies: Negative. Medications: Current Outpatient Medications: ??? acidiphilus probiotic tablet, Take 2 tablets by mouth daily., Disp: , Rfl: ??? acyclovir 400 MG tablet, Take 1 tablet (400 mg total) by mouth daily. (Patient taking differently: Take 400 mg by mouth daily as needed. ), Disp: 90 tablet, Rfl: 2 ??? Azelastine HCl 0.05 % Solution, Place 1 drop into both eyes daily. (Patient taking differently:Place 1 drop into both eyes daily as needed. ), Disp: 1 Bottle, Rfl: 6 ??? multi vitamin/minerals tablet, Take 1 tablet by mouth 2 (two) times daily. , Disp: , Rfl: ??? naproxen EC 500 MG tablet, Take 1 tablet (500 mg total) by mouth 2 (two) times daily with mealsfor 14 days., Disp: 28 tablet, Rfl: 0 ??? sertraline 50 MG tablet, Take 1.5 tablets (75 mg total) by mouth daily., Disp: 135 tablet, Rfl:2 ??? MAGNESIUM ASPARTATE OR, Take 400 mg by mouth daily., Disp: , Rfl: Allergies: Allergies Allergen Reactions ??? Penicillins Anaphylaxis Can take Amoxicillin Medical History: History reviewed. No pertinent past medical history. Surgical History: Past Surgical History: Procedure Laterality Date ??? DENTAL PROCEDURE tooth extraction Social History: Social History Socioeconomic History ??? Marital status: Single Spouse name: Not on file ??? Number of children: 1 ??? Years of education: Not on file ??? Highest education level: Some college, no degree Occupational History ??? Occupation: Formerly [employer] Social Needs ??? Financial resource strain: Not on file ??? Food insecurity: Worry: Not on file Inability: Not on file ??? Transportation needs: Medical: Not on file Non-medical: Not on file Tobacco Use ??? Smoking status: Current Every Day Smoker Packs/day: 0.25 Types: Cigarettes Start date: 1994 ??? Smokeless tobacco: Never Used ??? Tobacco comment: trying to cut back Substance and Sexual Activity ??? Alcohol use: Yes Frequency: Monthly or less Drinks per session: 1 or 2 Binge frequency: Never ??? Drug use: No ??? Sexual activity: Never Lifestyle ??? Physical activity: Days per week: Not on file Minutes per session: Not on file ??? Stress: Not on file Relationships ??? Social connections: Talks on phone: Not on file Gets together: Not on file Attends methodist service: Not on file Active member of club or organization: Not on file Attends meetings of clubs or organizations: Not on file Relationship status: Not on file ??? Intimate partner violence: Fear of current or ex partner: Not on file Emotionally abused: Not on file Physically abused: Not on file Forced sexual activity: Not on file Other Topics Concern ??? Service No ??? [...] Narrative Lives at home with her son Family History: Family History Problem Relation Name Age of Onset ??? Cancer Mother breast ??? Cancer Father prostate ??? Heart Father ??? Anxiety Father PE: Physical Exam Constitutional: She is oriented to person, place, and time. She appears well- developed and well-nourished. HENT: Head: Normocephalic. Eyes: Conjunctivae are normal. Right eye exhibits no discharge. Left eye exhibits no discharge. Neck: Trachea normal and normal range of motion. Neck supple. Pulmonary/Chest: Effort normal. Musculoskeletal: Right shoulder: She exhibits decreased range of motion, tenderness, bony tenderness, pain and decreased strength. She exhibits no swelling, no effusion, no deformity, no laceration, no spasm and normal pulse. Pain to anterior right shoulder, radiating into right neck and right posterior neck; mild swelling noted to right anterior shoulder Neurological: She is alert and oriented to person, place, and time. No sensory deficit. Decreased strength to right arm Skin: Skin is warm, dry and intact. Psychiatric: She has a normal mood and affect. Her speech is normal and behavior is normal. Thoughtcontent normal. Nursing note and vitals reviewed. Filed Vitals: 07/07/20 1549 BP: 104/66 Pulse: 99 Resp: 16 Temp: 97.1 ??F (36.2 ??C) TempSrc: Temporal SpO2: 98% Weight: 71.3 kg (157 lb 3.2 oz) Height: 5' 6 (1.676 m) Body mass index is 25.37 kg/m??. 1. Tendinitis of right rotator cuff - Since symptoms are slightly improving, continue naproxen 500 mg bid; ice to right shoulder; gentle ROM exercises, may return to work in 7-10 days provided symptoms are improving. - Follow up if symptoms worsen. JAZMYNE HONG NP 07/07/2020 8:56 PM documented in this encounter Plan of Treatment Not on file documented as of this encounter Visit Diagnoses Diagnosis Tendinitis of right rotator cuff- Primary Disorders of bursae and tendons in shoulder region, unspecified documented in this encounter Additional Health Concerns Assessment Noted Time PHQ-9 Depression Total Score: 5 06/23/20 20 3:28 PM CDT documented as of this encounter Care Teams Outreach Librarian Relationship Specialty Start Date End Date Jazmyne Hong NP PCP - General NURSE PRACTITIONER 12/15/18 08/31/21 documented as of this encounter
--- OUTSIDE RECORDS SUMMARY | 2024-10-22 20:35 | XMS_ITS | Encounter Summary ---
Author Organization [facility] Address [address] [place] [address]. [place], [place] [address] [place] [address] Care Team Providers Care Brakes Inspector Name Role Phone Chantelle Hong BUYER RENTER Primary Care Provider Unav ailable Reason for Visit * Reason Onset Date Comments Question 01/26/2020 Encounter Details Date Type Department Care Team (Late st Contact Info) Description 01/26/2020 Telephone [facility] Family & Internal Medicine [address] [address] Chantelle Hong, BUYER RENTER Question Social History Tobacco Use Types Packs/Day Years Used Date Smoking Tobacco: Every Day Cigarettes Smokeless Tobacco: Never Comments:trying to cut back Alcohol Use Standard Drinks/Week Comments Yes 0 (1 standard drink = 0.6 oz pur e alcohol) AUDIT-C Answer Date Recorded Frequency of Alcohol Consumption Monthly or less 12/15/2018 Average Number of Drinks Not on file 019 Frequency of Binge Drinking Not on file 12/05 PHQ-2 Answer Date Recorded PHQ-2 Score 0 10/11/2019 Education Answer Date Recorded What is the highest level of school you have completed or the highest degree you have received? Some college, no degree 12/15/2018 Comments No Sex and Gender Information Value Date Recorded Sex Assigned at Female 12/15/2018 11:48 AM WORKDAY DIRECTOR Legal Sex Female 8:12 PM CDT Gender Identity Female 12/15/2018 11:48 AM WORKDAY DIRECTOR Sexual Orientation Straight 12/15/2018 11 :21 AM WORKDAY DIRECTOR Occupation Industry Job Start Date Job End Date [employer] Not on file Not on file Not on file documented as of this encounter Progress Notes * Alicia Murillo RN - 01/26/2020 9:46 AM CDT Called and spoke with patient, informed her that we cannot give her a note off work, but that it isbest to ensure proper hand washing and hygiene. Encouraged her to remove her clothes and shoes uponcoming into the house and possibly showering as well. Encouraged her to call the office if she would develop a cough, fever or SOB. 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 She v/u. * Alicia Torre - 01/26/2020 8:03 AM CDT Frances called wanting to ask a few questions regardiing her health and the virus. 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 Please call to help with her concerns. [phone] documented in this encounter Plan of Treatment Not on file documented as of this encounter Visit Diagnoses Not on filedocumented in this encounter Care Teams Brakes Inspector Relationship Specialty Start Date End Date Chantelle Hong NP PCP - General NURSE PRACTITIONER 12/15/18 08/31/21 documented as of this encounter
--- OUTSIDE RECORDS SUMMARY | 2024-10-22 20:35 | XMS_ITS | Encounter Summary ---
Author Organization [facility] Address [address] [place] [address]. [place], [place] [address] [place] [address] Care Team Providers Care Production Truck Driver Name Role Phone Chantelle Hong NP Primary Care Provider Unav ailable Encounter Details Date Type Department Care Team (Late st Contact Info) Description 12/04/2019 Orders Only [facility] Family & Internal Medicine [facility] [address] [place] [address] Chantelle Hong, OTONIEL Social History Tobacco Use Types Packs/Day Years [...] Sex Assigned at Female 12/15/2018 11:48 AM PAINTER TOUCH UP Legal Sex Female 8:12 PM CDT Gender Identity Female 12/15/2018 11:48 AM PAINTER TOUCH UP Sexual Orientation Straight 12/15/2018 11 :21 AM PAINTER TOUCH UP Occupation Industry Job Start Date Job End Date [employer] Not on file Not on file Not on file documented as of this encounter Plan of Treatment Not on file documented as of this encounter Visit Diagnoses Diagnosis Conjunctivitis of right eye, unspecified conjunctivitis type- Primary documented in this encounter Care Teams Production Truck Driver Relationship Specialty Start Date End Date Chantelle Hong NP PCP - General NURSE PRACTITIONER 12/15/18 08/31/21 documented as of this encounter
--- OUTSIDE RECORDS SUMMARY | 2024-10-22 20:35 | XMS_ITS | Encounter Summary ---
Author Organization [facility] Address [address] [place] [address]. [place], [place] [id number] [place] [address] Care Team Providers Care Leasing Assistant Name Role Phone Unavailable Primary Care Provider Unavailabl e Encounter Details Date Type Department Care Team (Latest Contact Info) Description 07/30/2018 Abstract [facility] Medical Group Chantelle Hong NP Social History Tobacco Use Types Packs/Day Years Used Date Smoking Tobacco: Never Assessed Comments Unknown Sex and Gender Information Value Date Recorded Sex Assigned at Female 12/15/2018 11:48 AM RUBBER CUTTER AND SHAPE CARVER Legal Sex Female 8:12 PM CDT Gender Identity Female 12/15/2018 11:48 AM RUBBER CUTTER AND SHAPE CARVER Sexual Orientation Straight 12/15/2018 11 :21 AM RUBBER CUTTER AND SHAPE CARVER documented as of this encounter Last Filed Vital Signs Vital Sign Reading Time Taken Comments Blood Pressure 118/68 07/30/2018 4:14 PM CDT Pulse 70 07/30/2018 4:14 PM CDT Temperature - - Respiratory Rate - - Oxygen Saturation - - Inhaled Oxygen Concentration - - Weight 73.2 kg (161 lb 6.4 oz) 07/30/2018 4:14 P M CDT Height 167.6 cm (5' 6 ) 07/30/2018 4:14 PM CDT Body Mass Index 26.05 07/30/2018 4:14 PM CDT documented in this encounter Progress Notes * Chantelle Hong NP - 07/30/2018 4:20 PM CDT Reason For Visit Chronic Recheck Visit Chief Complaint pt here for check up and med refill for Adjustment disorder with Anxiety. History of Present Illness HPI Free Text: Frances is a 42 year old female who presents today for a check up and a refill of anxiety medication.States she stopped taking sertraline because she thought she was doing better; however, once she quit taking it, she realized that she still needs to be on this medication. States she was definitely more tearful and irritable. States she has been out of it for 2 weeks and is ready to start again. States she does see BLUEPRINT PROCESSOR at [facility] and is scheduled for an appt next week. [facility]: Date: 07/30/2018 Examiner: erin carrillo Grade Completed: Reading Level: high school Can Pronounce: Menopause, Antibiotics, Exercise, Jaundice, Rectal, Anemia, Behavior Unable to Pronounce: PHQ-9 Depression Questionnaire: Over the past 2 weeks, how often have you been bothered by the following problems? 1.) Little interest or pleasure in doing things? Several days. 2.) Feeling down, depressed or hopeless? Several days. 3.) Trouble falling asleep or sleeping too much? Half the days or more. 4.) Feeling tired or having little energy? Several days. 5.) Poor appetite or overeating? Not at all. 6.) Feeling bad about yourself, or that you are a failure, or have let yourself or your family down? Several days. 7.) Trouble concentrating on things, such as reading a newspaper or watching television? Not at all. 8.) Moving or speaking so slowly that other people could have noticed, or the opposite, moving or speaking faster than usual? Several days. 9.) Thoughts that you would be off or of hurting yourself in some way? Not at all. TOTAL SCORE: 7, severity of depression is mild. How difficult have these problems made it for you to do your work, take care of things at home, or get along with people? Not at all. Depression (Follow-Up): The patient states her depression has worsened since the last visit. They have had recurrent episodes of major depression. She describes this as moderate in severity. ComorbidIllnesses: anxiety. She has had no significant interval events. Interval Symptoms: worsened depression, worsened depressed mood, worsened loss of interest or pleasure in activities, denies insomnia, denies excessive sleepiness, worsened inability to perform normal activities, worsened loss of energy, denies feelings of worthlessness, denies feelings of guilt, worsened trouble concentrating, worsened anxiety, denies sexual dysfunction and denies . Associated symptoms include:. No associated symptoms are reported.. Social Support: the patient has good social support. Medications: The patient is not currently on any medications for her depression.. Review of Systems See HPI for pertinent positives. Constitutional: Normal. ENT: normal. Cardiovascular: Normal. Respiratory: Normal. Gastrointestinal: Normal. Genitourinary: Normal. Integumentary: Normal. Musculoskeletal: Normal. Neurological: Normal. Psychiatric: anxiety and depression, but no suicidal ideation. Active Problems 1. Adjustment disorder with anxiety (309.24) (F43.22) 2. BMI 26.0-26.9,adult (V85.22) (Z68.26) Past Medical History 1. History of Acute low back pain (724.2) (M54.5) 2. History of Contusion of shoulder, left (923.00) (S40.012A) 3. History of Injury of middle finger, left, subsequent encounter (V58.89,959.5) (S69.92XD) 4. History of Laceration of finger (883.0) (S61.219A) 5. History of Left shoulder pain (719.41) (M25.512) 6. History of URTI (acute upper respiratory infection) (465.9) (J06.9) Surgical History 1. History of Cervical Loop Electrosurgical Excision (LEEP) ?? two different times 2. History of Colonoscopy Family History Mother 1. Family history of Breast carcinoma 2. Family history of rheumatoid arthritis (V17.7) (Z82.61) Father 3. Family history of malignant neoplasm of prostate (V16.42) (Z80.42) Social History ?? Active advance directive (V49.89) (Z78.9) ?? Current every day smoker (305.1) (F17.200) ?? smokes half pack daily ?? Daily caffeine consumption ?? Denied: History of Dental care, regularly ?? Exercises regularly ?? House ?? No illicit drug use ?? 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 Single ?? Social alcohol use (Z78.9) ?? Some college Current Meds 1. Acidophilus Probiotic Oral Tablet; TAKE 2 TABLET Daily; Therapy: [id number] to Recorded 2. Acyclovir 400 MG Oral Tablet; TAKE 1 TABLET BY MOUTH TWICE A DAY; Therapy: 29Feb2016 to Recorded 3. Mirena (52 MG) 20 MCG/24HR Intrauterine Intrauterine Device; USE DIRECTED. placed in 2017; Therapy: [id number] to Recorded 4. Sertraline HCl - 50 MG Oral Tablet; TAKE 1 TABLET BY MOUTH EVERY DAY; Therapy: [id number] to (Evaluate:[id number]) Requested for: 81Rqv8744; Last Rx:[id number] Ordered Allergies 1. Penicillins Vitals Recorded: 30Jul2018 04:14PM Temperature 98.5 F Heart Rate 70 Respiration 16 Systolic 118 Diastolic 68 O2 Saturation 98 Height 5 ft 6 in Weight 161 lb 6.4 oz BMI Calculated 26.05 BSA Calculated 1.83 Physical Exam Constitutional General appearance: No acute distress, well appearing and well nourished. Eyes Conjunctiva and lids: No swelling, erythema or discharge. Ears, Nose, Mouth, and Throat External inspection of ears and nose: Normal. Pulmonary Respiratory effort: No increased work of breathing or signs of respiratory distress. Auscultation of lungs: Clear to auscultation. Cardiovascular Auscultation of heart: Normal rate and rhythm, normal S1 and S2, without murmurs. Examination of extremities for edema and/or varicosities: Normal. Lymphatic Palpation of lymph nodes in neck: No lymphadenopathy. Musculoskeletal Gait and station: Normal. Digits and nails: Normal without clubbing or cyanosis. Inspection/palpation of joints, bones, and muscles: Normal. Skin Skin and subcutaneous tissue: Normal without rashes or lesions. Neurologic Sensation: No sensory loss. Psychiatric Orientation to person, place, and time: Normal. Mood and affect: Abnormal. Mood and Affect: calm and tearful. Assessment 1. Anxiety and depression (300.00,311) (F41.9,F32.9) Plan Anxiety and depression 1. Sertraline HCl - 50 MG Oral Tablet; TAKE ONE TABLET BY MOUTH ONCE DAILY Rx By: Chantelle Hong; Dispense: 90 Days ; #:90 Tablet; Refill: 2; For: Anxiety and depression; BIANCA = N; Verified Transmission to [id number]; Msg to Pharmacy: Can do 30 days if insurance will not cover 90. thank you; Last Updated By: Penny Eden; 07/30/2018 5:00:43 PM 2. Call if: You are having difficulty sleeping (insomnia).; Status:Complete; Done: [id number] Ordered; For:Anxiety and depression; Ordered By:Chantelle Hong; 3. Call if: Your feelings of anxiety are not getting better in 2 weeks.; Status:Complete; Done: [id number] Ordered; For:Anxiety and depression; Ordered By:Chantelle Hong; 4. Call if: Your feelings of being frightened, nervous, anxious, and out of control are happening more often.; Status:Complete; Done: [id number] Ordered; For:Anxiety and depression; Ordered By:Chantelle Hong; 5. Call 097 if: You are considering suicide.; Status:Complete; Done: [id number] Ordered; For:Anxiety and depression; Ordered By:Chantelle Hong; 6. Call 911 if: You are thinking about harming yourself or someone else.; Status:Complete; Done: [id number] Ordered; For:Anxiety and depression; Ordered By:Chantelle Hong; Restart sertraline today. Follow up in 6 months or sooner if medication is not effective. Discussion/Summary PHQ-9 Completed (Score 7). Signatures Electronically signed by : Chantelle Hong APN; Jul 31 2018 9:46AM RUBBER CUTTER AND SHAPE CARVER (Author) documented in this encounter Plan of Treatment Not on file documented as of this encounter Procedures Procedure Name Priority Date/Time Associated Diagnosis Comments COLONOSCOPY Routine 07/18/2004 12:00 AM CDT documented in this encounter Results * Colonoscopy (07/18/2004 12:00 AM CDT) 07/18/2004 07/18/2004 Narrative [facility] TO [facility] CONVERSION - 07/18/2004 12:00 AM CDT Documented hx of procedure Procedure Note , Generic Conversion, - 09/07/2018 Documented hx of procedure us Generic Conversion Md [facility] PROCEDURE ORDERABLES Final Result [facility] TO EPIC CONVERSION documented in this encounter Visit Diagnoses Not on filedocumented in this encounter
--- OUTSIDE RECORDS SUMMARY | 2024-10-22 20:35 | XMS_ITS | Encounter Summary ---
Author Organization [facility] Address [address] [place] [address]. [place], [place] [id number] [place] [address] Care Team Providers Care Strip Mine Supervisor Name Role Phone Unavailable Primary Care Provider Unavailabl e Encounter Details Date Type Department Care Team (Late st Contact Info) Description 07/09/2017 Abstract [facility] [address] [place] [address] Mónica Crystal MD Social History Tobacco Use Types Packs/Day Years Used Date Smoking Tobacco: Never Assessed Comments Unknown Sex and Gender Information Value Date Recorded Sex Assigned at Female 12/15/2018 11:48 AM DIRECTOR OF CORPORATE STRATEGY Legal Sex Female 8:12 PM CDT Gender Identity Female 12/15/2018 11:48 AM DIRECTOR OF CORPORATE STRATEGY Sexual Orientation Straight 12/15/2018 11 :21 AM DIRECTOR OF CORPORATE STRATEGY documented as of this encounter Plan of Treatment Not on file documented as of this encounter Visit Diagnoses Diagnosis Low back pain Lumbago documented in this encounter
--- OUTSIDE RECORDS SUMMARY | 2024-10-22 20:35 | XMS_ITS | Encounter Summary ---
Author Organization [facility] Address [address] [place] [address]. [address] [address] Care Team Providers Care Documentation Billing Clerk Name Role Phone Jazmyne Hong RESEARCH MANUFACTURING OPERATOR Primary Care Provider Unav ailable Reason for Visit * Reason Comments Dental Problem pt c/o tooth infecti on Encounter Details Date Type Department Care Team (Late st Contact Info) Description 06/23/2020 3:20 PM CDT Office Visit [facility] Medical Group Family & Internal Medicine [address] [phone] Jazmyne Hong NP Dental Problem (pt c/o tooth infection) Social History Tobacco Use Types Packs/Day Years [...] Sex Assigned at Female 12/15/2018 11:48 AM TIN POT OPERATOR Legal Sex Female 8:12 PM CDT Gender Identity Female 12/15/2018 11:48 AM TIN POT OPERATOR Sexual Orientation Straight 12/15/2018 11 :21 AM TIN POT OPERATOR Occupation Industry Job Start Date Job End Date [employer] Not on file Not on file Not on file COVID-19 Exposure Response Date Recorded In the last month, have you been in contact with someone who was confirmed or suspected to have Coronavirus / COVID-19? No / Unsure 06/23/2020 3:12 PM CDT documented as of this encounter Last Filed Vital Signs Vital Sign Reading Time Taken Comments Blood Pressure 116/72 06/23/2020 3:20 PM CDT Pulse 80 06/23/2020 3:20 PM CDT Temperature 36.2 ??C (97.1 ??F) 06/23/2020 3:20 PM CD T Respiratory Rate 16 06/23/2020 3:20 PM CDT Oxygen Saturation 98% 06/23/2020 3:20 PM CDT Inhaled Oxygen Concentration - - Weight 73.8 kg (162 lb 9.6 oz) 06/23/2020 3:20 P M CDT Height 167.6 cm (5' 6 ) 06/23/2020 3:20 PM CDT Body Mass Index 26.24 06/23/2020 3:20 PM CDT documented in this encounter Progress Notes * Jazmyne Hong NP - 06/23/2020 3:20 PM CDT Images from the original note were not included. Office Progress Note Reason for Visit: Dental Problem (pt c/o tooth infection) History of Present Illness: Frances is a 44 year old female who presents today for c/o tooth infection. She states she has been having trouble with her teeth over the past year and she has been to oral surgeon and had one tooth pulled, and she was supposed to go back to have 2 other teeth pulled but it was canceled due to COVID. She states she tried calling her regular dentist but they informed her she was no longer a patientbecause she is now going to oral surgeon. She states she cannot get into oral surgeon until Augustand her tooth is hurting. She has tried taking Tylenol with little to no relief. She states her mom in the spring rather unexpectedly. She is having stress and more anxiety. She has been working more hours since the start of COVID and she has not had any time off. Dental Problem This is a recurrent problem. The current episode started 1 to 4 weeks ago. The problem occurs constantly. The problem has been gradually worsening. The pain is moderate. Associated symptoms include facial pain and thermal sensitivity. Pertinent negatives include no difficulty swallowing, fever, oral bleeding or sinus pressure. She has tried acetaminophen for the symptoms. The treatment provided no relief. Anxiety Presents for follow-up visit. Symptoms include excessive worry, irritability and nervous/anxious behavior. Patient reports no chest pain, compulsions, confusion, decreased concentration, depressed mood, dizziness, dry mouth, feeling of choking, hyperventilation, impotence, insomnia, malaise, muscletension, nausea, obsessions, palpitations, panic, restlessness, shortness of breath or suicidal ideas. Symptoms occur most days. The severity of symptoms is moderate. The quality of sleep is fair. Nighttime awakenings: occasional. Compliance with medications is 76-100%. ROS: Review of Systems Constitutional: Positive for irritability. Negative for chills, fever and malaise/fatigue. HENT: Negative. Negative for congestion, sinus pressure and sinus pain. Eyes: Negative. Respiratory: Negative. Negative for cough, sputum production, shortness of breath and wheezing. Cardiovascular: Negative. Negative for chest pain and palpitations. Gastrointestinal: Negative. Negative for nausea. Genitourinary: Negative. Negative for impotence. Musculoskeletal: Positive for neck pain. Negative for myalgias. Skin: Negative. Negative for itching and rash. Neurological: Negative. Negative for dizziness and tingling. Endo/Heme/Allergies: Negative. Psychiatric/Behavioral: Negative for confusion, decreased concentration, depression, memory loss and suicidal ideas. The patient is nervous/anxious. The patient does not have insomnia. Medications: Current Outpatient Medications: ??? acidiphilus probiotic [...] ), Disp: 1 Bottle, Rfl: 6 ??? chlorhexidine 0.12 % solution, RINSE FOR 30 SECONDS WITH 1/2 OUNCE TWICE A DAY THEN EXPECTORATE.DO NOT SWALLOW, Disp: , Rfl: ??? MAGNESIUM ASPARTATE OR, Take 400 mg by mouth daily., Disp: , Rfl: ??? multi vitamin/minerals tablet, Take 1 tablet by mouth 2 (two) times daily. , Disp: , Rfl: ??? sertraline 50 MG tablet, Take 1 tablet (50 mg total) by mouth daily., Disp: 90 tablet, Rfl: 2 Allergies: Allergies Allergen Reactions ??? Penicillins Anaphylaxis [...] no degree Occupational History ??? Occupation: [employer] Needs ??? Financial resource strain: Not on file ??? Food insecurity: Worry: Not on file Inability: Not on file ??? Transportation needs: Medical: Not on file Non-medical: Not on file Tobacco Use ??? Smoking status: Current Every Day Smoker Packs/day: 0.25 Types: Cigarettes ??? Smokeless tobacco: Never Used ??? Tobacco [...] file Gets together: Not on file Attends mu-ism service: Not on file Active member of [...] well- developed and well-nourished. HENT: Head: Normocephalic. Right Ear: Hearing, tympanic membrane, external ear and ear canal normal. Left Ear: Hearing, tympanic membrane, external ear and ear canal normal. Mouth/Throat: Eyes: Conjunctivae are normal. Right eye exhibits no discharge. Left eye exhibits no discharge. Neck: Normal range of motion. Neck supple. Pulmonary/Chest: Effort normal. Musculoskeletal: Normal range of motion. Neurological: She is alert and oriented to person, place, and time. She has normal strength. No sensory deficit. Skin: Skin is warm, dry and intact. Psychiatric: Her speech is normal and behavior is normal. Thought content normal. Her mood appears anxious. Nursing note and vitals reviewed. Filed Vitals: 06/23/20 1520 BP: 116/72 Pulse: 80 Resp: 16 Temp: 97.1 ??F (36.2 ??C) TempSrc: Temporal SpO2: 98% Weight: 73.8 kg (162 lb 9.6 oz) Height: 5' 6 (1.676 m) Body mass index is 26.24 kg/m??. 1. Tooth infection - clindamycin 300 MG capsule; Take 1 capsule (300 mg total) by mouth 3 (three) times daily for 10 days. Dispense: 30 capsule; Refill: 0 - HYDROcodone-acetaminophen 5-325 MG tablet; Take 1-2 tablets by mouth every 6 (six) hours as needed for Pain. Indications: Acute Pain < 7 Day Supply Dispense: 30 tablet; Refill: 0 2. Anxiety and depression - sertraline 50 MG tablet; Take 1.5 tablets (75 mg total) by mouth daily. Dispense: 135 tablet; Refill: 2. Will increase sertraline to 75 mg daily. - Follow up in 3-4 months or sooner if ineffective. 3. Open fracture of tooth, initial encounter - Hydrocodone as directed; cool compress to right jaw. - Follow up with oral surgeon as planned. JAZMYNE HONG NP 06/23/2020 3:36 PM documented in this encounter Plan of Treatment Not on file documented as of this encounter Visit Diagnoses Diagnosis Tooth infection- Primary Acute apical periodontitis of pulpal origin Anxiety and depression Dysthymic disorder Open fracture of tooth, initial encounter documented in this encounter Additional Health Concerns Assessment Noted Time PHQ-9 Depression Total Score: 5 06/23/20 3:28 PM CDT documented as of this encounter Care Teams Documentation Billing Clerk Relationship Specialty Start Date End Date Jazmyne Hong NP PCP - General NURSE PRACTITIONER 12/15/18 08/31/21 documented as of this encounter
--- OUTSIDE RECORDS SUMMARY | 2024-10-22 20:35 | XMS_ITS | Encounter Summary ---
Author Organization [facility] Address [address] [place] [address]. [place], [place] [id number] [place] [address] Care Team Providers Care Aircraft Maintenance Engineer Name Role Phone Akilah Gardner NP Primary Care Provider Mera Ceasr Primary Care Provider [phone] Josefa RodríguezC Primary Care Provider [phone] Encounter Details Date Type Department Care Team (Late st Contact Info) Description 11/28/2021 [employer] Message Enc 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 Not on file Not on file documented as of this encounter Plan of Treatment Not on file documented as of this encounter Visit Diagnoses Not on filedocumented in this encounter Additional Health Concerns Infection Onset Date Last Indicated Resolved Time COVID-19 Rule Out 09/12/2022 09/12/2022 09/12/2022 10:26 AM RN INFUSION COVID-19 Rule Out 09/12/2022 09/12/2022 09/12/2022 1:04 PM RN INFUSION COVID-19 Rule Out 09/12/2022 09/12/2022 09/13/2022 5:41 PM RN INFUSION COVID-19 Rule Out 11/26/2022 11/26/2022 11/26/2022 10:46 AM RN INFUSION Assessment Noted Time PHQ-9 Depression Total Score: 14 021 8:58 AM CDT documented as of this encounter Care Teams Aircraft Maintenance Engineer Relationship Specialty Start Date End Date Akilah Gardner NP PCP - General NURSE PRACTITIONER 09/01/21 08/02/22 [place] [address] [place] [address] PCP - General PHYSICIAN CLINICAL ESTHETICIAN 08/03/22 08/11/23 Josefa Rodríguez PA-C [id number] [address] PCP - General PHYSICIAN CLINICAL ESTHETICIAN 08/12/23 documented as of this encounter
--- OUTSIDE RECORDS SUMMARY | 2024-10-22 20:35 | XMS_ITS | Encounter Summary ---
Author Organization [facility] Address [address] [place] [address]. [place], [place] [id number] [place] [address] Care Team Providers Care Is/It Project Manager Name Role Phone Akilah Gardner CULINARY INSTRUCTOR Primary Care Provider Unavailabl e Reason for Visit * Reason Onset Date Comments Medication Problem 09/05/2021 Encounter Details Date Type Department Care Team (Late st Contact Info) Description 09/05/2021 Telephone [facility] Family & Internal Medicine [address] [phone] Akilah Gardner, OTONIEL Medication Problem Social History Tobacco Use Types Packs/Day Years [...] Sex Assigned at Female 12/15/2018 11:48 AM MANAGER PROGRAM MANAGEMENT Legal Sex Female 8:12 PM CDT Gender Identity Female 12/15/2018 11:48 AM MANAGER PROGRAM MANAGEMENT Sexual Orientation Straight 12/15/2018 11 :21 AM MANAGER PROGRAM MANAGEMENT Occupation Industry Job Start Date Job End [...] Progress Notes * Marian Lynn RN - 09/06/2021 10:03 AM CDT Nurse called Lucía at [facility] and clarified. Chart updated. Insurance will cover Sertraline 100mgtabs for 1.5 tabs to equal 150mg daily. Cancelled 50mg tabs. * Akilah Gardner NP - 09/05/2021 10:48 PM CDT She is too take both to total 150mg. Ty * Marian Lynn RN - 09/05/2021 3:05 PM CDT Please clarify. Sertraline 100mg and 75mg both in chart * Annalisa Krishnan - 09/05/2021 3:01 PM CDT Please call lucía from [facility] @ [phone] She needing to know what dose you want for pt sertraline 50 mg are 100 mg documented in this encounter Plan of Treatment Not on file documented as of this encounter Visit Diagnoses Diagnosis Anxiety and depression Dysthymic disorder documented in this encounter Additional Health Concerns Assessment Noted Time PHQ-9 Depression Total Score: 14 021 8:58 AM CDT documented as of this encounter Care Teams Is/It Project Manager Relationship Specialty Start Date End Date Akilah Gardner, CULINARY INSTRUCTOR PCP - General NURSE PRACTITIONER 09/01/21 08/02/22 documented as of this encounter
--- OUTSIDE RECORDS SUMMARY | 2024-10-22 20:35 | XMS_ITS | Encounter Summary ---
Author Organization [facility] Address [address] [place] [address]. [place], [place] [address] [place] [address] Care Team Providers Care Senior Adults Director Name Role Phone Unavailable Primary Care Provider Unavailabl e Encounter Details Date Type Department Care Team (Latest Contact Info) Description 12/31/2016 Abstract [facility] Social History Tobacco Use Types Packs/Day Years Used Date Smoking Tobacco: Never Assessed Comments Unknown Sex and Gender Information Value Date Recorded Sex Assigned at Female 12/15/2018 11:48 AM KNOCK OUT HAND Legal Sex Female 8:12 PM CDT Gender Identity Female 12/15/2018 11:48 AM KNOCK OUT HAND Sexual Orientation Straight 12/15/2018 11 :21 AM KNOCK OUT HAND documented as of this encounter Progress Notes * Elaine Rudolph MD - 12/31/2016 8:03 AM CST Message Please let Jamir know her X ray shows things are starting to heal. Con't with estrada tapping finger for another 3 weeks. Verified Results XR FINGER-3RD DIGIT (MIDLE) LT ( Routine ) [id number] 04:37PM Elaine Rudolph Test Name Result Flag Reference XR FINGER-3RD DIGIT (MIDLE) LT (Report) JAMIR BOWMAN ADMIT/SERVICE DATE: 12/28/16 ACCT: [id number] DISCHARGE DATE: : 1975 SEX: F ORD SITE: [facility] PT TYPE: REG CLI ORDERING MD: ELAINE RUDOLPH MD STUDY DATE REPORT # ORDER # [id number] ORDER ID 12/28/16 [id number] PROC CODE: [id number] PROCEDURE DESCRIPTION: XR FINGER 3RD DIGIT MIDDLE LT IMAGING STUDIES: XR FINGER 3RD DIGIT MIDDLE LT DATE: 12/28/2016 2:35 PM CLINICAL HISTORY: OTHER - INJURY TO LEFT MIDDLE FINGER . COMPARISON: 12/05/2016 CONCLUSION: 1. THERE IS MINIMAL CALLUS FORMATION ABOUT INCOMPLETELY HEALED AVULSION FRACTURE OFF THE PALMAR AND PROXIMAL ASPECT OF THE MIDDLE PHALANX OF THIS DIGIT. THERE IS INTRA- ARTICULAR EXTENSION.. NO NEW FRACTURE.. 2. NO RADIOPAQUE FOREIGN BODIES OR ABNORMAL SOFT TISSUE CALCIFICATIONS NOTED. NO SOFT TISSUE ABNORMALITIES. ELECTRONICALLY SIGNED BY Kenneth PETERSON MD documented in this encounter Plan of Treatment Not on file documented as of this encounter Visit Diagnoses Not on filedocumented in this encounter
--- OUTSIDE RECORDS SUMMARY | 2024-10-22 20:35 | XMS_ITS | Encounter Summary ---
Author Organization [facility] Address [address] [place] [address]. [place], [place] [address] [place] [address] Care Team Providers Care Evs Tech Name Role Phone Akilah Gardner NP Primary Care Provider Unavailabl e Encounter Details Date Type Department Care Team (Latest Contact Info) Description 09/04/2021 Travel Social History Tobacco Use Types Packs/Day [...] Assigned at Female 12/15/2018 11:48 AM INDUSTRIAL ECONOMICS TEACHER Legal Sex Female 8:12 PM CDT Gender Identity Female 12/15/2018 11:48 AM INDUSTRIAL ECONOMICS TEACHER Sexual Orientation Straight 12/15/2018 11 :21 AM INDUSTRIAL ECONOMICS TEACHER Occupation Industry Job Start Date Job End Date Formerly [employer] Not on file Not on file [...] documented as of this encounter Care Teams Evs Tech Relationship Specialty Start Date End Date Akilah Gardner, MANAGER OF MAINTENANCE PCP - General NURSE PRACTITIONER 09/01/21 08/02/22 documented as of this encounter
--- OUTSIDE RECORDS SUMMARY | 2024-10-22 20:35 | XMS_ITS | Encounter Summary ---
Author Organization [facility] Address [address] [place] [address]. [place], [place] [address] [place] [address] Care Team Providers Care Industrial Locomotive Operator Name Role Phone Chantelle Hong OPERATIONS SECTION MANAGER Primary Care Provider Unav ailable Encounter Details Date Type Department Care Team (Late st Contact Info) Description 11/27/2019 12:57 PM PUSHCART PEDDLER - 11/27/2019 11:59 PM PUSHCART PEDDLER Hospital Encounter [facility] [address] [id number] Chantelle Hong OPERATIONS SECTION MANAGER Discharge Disposition: Home or Self Care (Routine [...] Sex Assigned at Female 12/15/2018 11:48 AM PUSHCART PEDDLER Legal Sex Female 8:12 PM CDT Gender Identity Female 12/15/2018 11:48 AM PUSHCART PEDDLER Sexual Orientation Straight 12/15/2018 11 :21 AM PUSHCART PEDDLER Occupation Industry Job Start Date Job End Date [employer] Not on file Not on file Not on file documented as of this encounter Medications at Time of Discharge acidiphilus probiotic tablet Take 2 tablets by mouth daily. 07/09/2017 MAGNESIUM ASPARTATE OR Take 400 mg by mouth daily. multi vitamin/minerals tablet Take 1 tablet by mouth 2 (two) times daily. acyclovir 400 MG tabletIndications:He rpes simplex Take 1 tablet (400 mg total) by mouth daily. 90 tablet 2 07/02/2019 0 Azelastine HCl 0.05 % SolutionIndications: Allergic conjunctivitis of both eyes Place 1 drop into both eyes daily. 1 Bottle 6 08/28/2019 1 doxycycline hyclate 100 MG capsuleIndications:U pper respiratory tract infection, unspecified type Take 1 capsule (100 mg total) by mouth 2 (two) times daily for 10 days. 20 capsule 11/27/2019 0 sertraline 50 MG tabletIndications:An xiety and depression Take 1 tablet (50 mg total) by mouth daily. 90 tablet 2 07/02/2019 0 documented as of this encounter Progress Notes * Chantelle Hong NP - 11/27/2019 11:59 PM CST Please notify Frances that her rheumatoid factor is good, but her sed rate is just mildly elevated, with that being said and her complaints of intermittent eye irritation, I would like to do a few moreblood tests to rule out Sjogren's syndrome, which is an autoimmune dx that affects eyes and mouth. I will order the labs if she can get them checked when she has time. Also TSH is low indicating thyroid working too hard, so I am going to order a T3 as well. Will let her know as soon as we get results. Thank you delmar CART PEDDLER documented in this encounter Plan of Treatment Not on file documented as of this encounter Procedures Procedure Name Priority Date/Time Associated Diagnosis Comments TSH W/REFLEX Routine 11/27/2019 10:20 AM PUSHCART PEDDLER Fatigue RHEUMATOID FACTOR, QUANT Routine 11/27/2019 10:20 AM PUSHCART PEDDLER Joint pain SED RATE, ERYTHROCYTE (ESR) Routine 11/27/2019 10:20 AM PUSHCART PEDDLER Joint pain COMPREHENSIVE METABOLIC PANEL Routine 11/27/2019 10:20 AM PUSHCART PEDDLER Fatigue CBC W/DIFF AUTOMATED Routine 11/27/2019 10:20 AM PUSHCART PEDDLER Fatigue THYROXINE, FREE (FT4) Routine 11/27/2019 10:20 AM PUSHCART PEDDLER documented in this encounter Results * THYROXINE, FREE (FT4) (11/27/2019 10:20 AM PUSHCART PEDDLER) FREE T4 1.30 0.76 - 1.46 NG/DL 11/27/2019 1:53 PM PUSHCART PEDDLER [facility] 11/27/2019 10:2 0 AM PUSHCART PEDDLER Chantelle Hong NP LABORATORY Final Resul t Performing Organization Address City/[facility]/ZIP Co de Phone Number [facility] [address] [place] [address], [place] [phone] * (ABNORMAL) TSH W/REFLEX (11/27/2019 10:20 AM PUSHCART PEDDLER) Pathologist [facility] TSH 0.010(L) 0.358 - 3.74 uIU/ML 11/27/2019 1:34 PM PUSHCART PEDDLER [facility] Comment: HIGH DOSES OF BIOTIN MAY INTERFERE WITH THIS TEST RESULT. CORRELATION TO CLINICAL HISTORY AND PRESENTATION RECOMMENDED. 11/27/2019 10:2 0 AM PUSHCART PEDDLER Chantelle Hong NP LABORATORY Final Resul t Performing Organization Address City/[facility]/ZIP Co de Phone Number [facility] [address] [place] [address], [place] [phone] * COMPREHENSIVE METABOLIC PANEL (11/27/2019 10:20 AM PUSHCART PEDDLER) GLUCOSE 98 70 - 99 MG/DL 11/27/2019 1:34 PM [facility] BUN 8 7 - 18 MG/DL 11/27/2019 1:34 PM [facility] CREATININE S/P/B 0.73 0.55 - 1.02 MG/DL 11/27/2019 1:34 PM [facility] SODIUM S/P/B 139 136 - 145 MMOL/L 11/27/2019 1:34 PM [facility] POTASSIUM S/P/B 4.0 3.5 - 5.1 MMOL/L 11/27/2019 1:34 PM [facility] CHLORIDE S/P/B 104 100 - 108 MMOL/L 11/27/2019 1:34 PM [facility] CO2 23.7 21 - 32 MMOL/L 11/27/2019 1:34 PM [facility] CALCIUM S/P/B 9.3 8.5 - 10.1 MG/DL 11/27/2019 1:34 PM [facility] BILIRUBIN TOTAL S/P/B 0.6 0.2 - 1.2 MG/DL 11/27/2019 1:34 PM [facility] TOTAL PROTEIN S/P/B 7.3 6.4 - 8.2 G/DL 11/27/2019 1:34 PM [facility] ALBUMIN S/P/B 4.2 3.4 - 5.0 G/DL 11/27/2019 1:34 PM [facility] AST 15 15 - 37 U/L 11/27/2019 1:34 PM [facility] ALT 19 14 - 55 U/L 11/27/2019 1:34 PM [facility] ALKALINE PHOSPHATASE S/P/B 67 50 - 136 U/L 11/27/2019 1:34 PM [facility] ANION GAP 11.3 5 - 15 MMOL/L 11/27/2019 1:34 PM [facility] BUN CREATININE RATIO 11.0 6 - 26 11/27/2019 1:34 PM [facility] A/G RATIO 1.4 1.0 - 2.0 RATIO 11/27/2019 1:34 PM [facility] EGFR NON-AFR. AMER. >90 >90 ML/MIN/1.7 3 M2 11/27/2019 1:34 PM [facility] EGFR AFR. AMER. >90 >90 ML/MIN/1.7 3 M2 11/27/2019 1:34 PM [facility] Comment: NOTE: eGFR is not calculated for patients <18 years of age. This is an estimated GFR (CKD EPI) and should not be used for calculating drug doses. 11/27/2019 10:2 0 AM PUSHCART PEDDLER us Chantelle Hong OPERATIONS SECTION MANAGER LABORATORY Final Resul t [facility] [address] [place] [address], * (ABNORMAL) CBC W/DIFF AUTOMATED (11/27/2019 10:20 AM PUSHCART PEDDLER) WBC 5.7 4.4 - 11.0 x10'3/uL 11/27/2019 1:10 PM [facility] RBC 4.02(L) 4.50 - 5.10 x10'6/uL 11/27/2019 1:10 PM [facility] HGB 12.8 12.3 - 15.3 G/DL 11/27/2019 1:10 PM [facility] HCT 38.9 35.9 - 44.6 % 11/27/2019 1:10 PM [facility] MCV 96.8(H) 80.0 - 96.0 FL 11/27/2019 1:10 PM [facility] MCH 31.8(H) 25.3 - 30.9 PG 11/27/2019 1:10 PM [facility] MCHC 32.9 31.0 - 34.1 G/DL 11/27/2019 1:10 PM [facility] RDW 11.9(L) 12.4 - 15.1 % 11/27/2019 1:10 PM [facility] PLT 155 151 - 353 x10'3/uL 11/27/2019 1:10 PM [facility] MPV 11.7 9.6 - 12.0 FL 11/27/2019 1:10 PM [facility] RBC MORPHOLOGY NORMAL 11/27/2019 1:10 PM [facility] PLT MORPH. NORMAL 11/27/2019 1:10 PM [facility] WBC MORPHOLOGY NORMAL 11/27/2019 1:10 PM [facility] LYMPHOCYTES % 39.3 15.8 - 45.0 % 11/27/2019 1:10 PM [facility] NEUTROPHILS % 48.4 42.1 - 71.9 % 11/27/2019 1:10 PM [facility] MONOCYTES % 9.3 5.7 - 12.5 % 11/27/2019 1:10 PM [facility] EOSINOPHILS 2.1 0.0 - 5.6 % 11/27/2019 1:10 PM [facility] BASOPHILS 0.7 0.0 - 1.3 % 11/27/2019 1:10 PM [facility] ABS. NEUTROPHILS TOTAL 2.75 1.40 - 6.00 x10'3/uL 11/27/2019 1:10 PM PUSHCART PEDDLER [facility] IMMATURE GRANS % 0.2 0.0 - 0.5 % 11/27/2019 1:10 PM PUSHCART PEDDLER [facility] ABS. LYMPHOCYTES 2.23 0.80 - 4.70 x10'3/uL 11/27/2019 1:10 PM PUSHCART PEDDLER [facility] 11/27/2019 10:2 0 AM PUSHCART PEDDLER Chantelle Hong NP LABORATORY Final Resul t Performing Organization Address City/[facility]/ZIP Co de Phone Number [facility] [address] [place] [address], [place] [phone] * RHEUMATOID FACTOR, QUANT (11/27/2019 10:20 AM PUSHCART PEDDLER) RHEUMATOID FACTOR <10 <15 IU/ML 11/27/2019 8:02 PM PUSHCART PEDDLER [facility] 11/27/2019 10:2 0 AM PUSHCART PEDDLER Chantelle Hong NP LABORATORY Final Resul t Performing Organization Address [facility] Co de Phone Number [facility] [address] [place] [address], [place] [phone] * (ABNORMAL) SED RATE, ERYTHROCYTE (ESR) (11/27/2019 10:20 AM PUSHCART PEDDLER) ESR 21(H) 0 - 20 MM/HR 11/27/2019 1:31 PM PUSHCART PEDDLER [facility] 11/27/2019 10:2 0 AM PUSHCART PEDDLER Chantelle Hong NP LABORATORY Final Resul t Performing Organization Address City/[facility]/ZIP Co de Phone Number [facility] [address] [place], [place] [address] [place] [address] documented in this encounter Visit Diagnoses Diagnosis Joint pain Pain in joint, site unspecified Fatigue Other malaise and fatigue documented in this encounter Care Teams Industrial Locomotive Operator Relationship Specialty Start Date End Date Chantelle Hong, OTONIEL PCP - General NURSE PRACTITIONER 12/15/18 08/31/21 documented as of this encounter
--- OUTSIDE RECORDS SUMMARY | 2024-10-22 20:35 | XMS_ITS | Encounter Summary ---
Author Organization [facility] Address [address] [place] [address]. [place], [place] [address] [place] [address] Care Team Providers Care Librarian Special Library Name Role Phone Akilah Gardner ENTERPRISE DATA ARCHITECT Primary Care Provider Unavailabl e Encounter Details Date Type Department Care Team (Latest Contact Info) Description 09/04/2021 1:20 PM CDT - 09/04/2021 11:59 PM CDT Hospital Encounter [facility] [address] [id number] Akilah Gardner, OTONIEL Discharge Disposition: Home or Self Care (Routine [...] Sex Assigned at Female 12/15/2018 11:48 AM BLENDING MACHINE OPERATOR Legal Sex Female 8:12 PM CDT Gender Identity Female 12/15/2018 11:48 AM BLENDING MACHINE OPERATOR Sexual Orientation Straight 12/15/2018 11 :21 AM BLENDING MACHINE OPERATOR Occupation Industry Job Start Date [...] tablet by mouth 2 (two) times daily. ACYCLOVIR 400 MG tabletIndications :Herpes simplex TAKE 1 TABLET BY MOUTH EVERY DAY 30 tablet 1 09/04/2021 01/09/2022 sertraline 100 MG tabletIndications :Anxiety and depression Take 1.5 tablets (150 mg total) by mouth daily. 45 tablet 1 09/04/2021 11/15/2021 sertraline 50 MG tabletIndications :Anxiety and depression Take 1.5 tablets (75 mg total) by mouth daily. 135 tablet 2 09/04/2021 09/06/2021 documented as of this encounter Plan of Treatment Not on file documented as of this encounter Procedures Procedure Name Priority Date/Time Associated Diagnosis Comments TSH W/REFLEX Routine 09/04/2021 10:08 AM CDT Anxiety and depression ALBUMIN URINE RANDOM W/CREATININE Routine 09/04/2021 10:08 AM CDT Annual physical exam COMPREHENSIVE METABOLIC PANEL Routine 09/04/2021 10:08 AM CDT Annual physical exam LIPID PANEL Routine 09/04/2021 10:08 AM CDT Annual physical exam CBC W/DIFF AUTOMATED Routine 09/04/2021 10:08 AM CDT Annual physical exam THYROXINE, FREE (FT4) Routine 09/04/2021 10:08 AM CDT VITAMIN D, 25 [place] Routine 09/04/2021 10:0 8 AM CDT Annual physical exam documented in this encounter Results * (ABNORMAL) THYROXINE, FREE (FT4) (09/04/2021 10:08 AM CDT) Pathologist [facility] FREE T4 1.91(H) 0.76 - 1.46 NG/DL 09/04/2021 4:16 PM CDT [facility] 09/04/2021 10:0 8 AM CDT Akilah Gardner NP LABORATORY Final Result [facility] [address] [place] [address], [place] [phone] * (ABNORMAL) CBC W/DIFF AUTOMATED (09/04/2021 10:08 AM CDT) [facility] WBC 4.5 4.4 - 11.0 x10'3/uL 09/04/2021 1:53 PM CDT [facility] RBC 4.35(L) 4.50 - 5.10 x10'6/uL 09/04/2021 1:53 PM CDT [facility] HGB 13.2 12.3 - 15.3 G/DL 09/04/2021 1:53 PM CDT [facility] HCT 39.8 35.9 - 44.6 % 09/04/2021 1:53 PM CDT [facility] MCV 91.5 80.0 - 96.0 FL 09/04/2021 1:53 PM CDT [facility] MCH 30.3 25.3 - 30.9 PG 09/04/2021 1:53 PM CDT [facility] MCHC 33.2 31.0 - 34.1 G/DL 09/04/2021 1:53 PM CDT [facility] RDW 12.0(L) 12.4 - 15.1 % 09/04/2021 1:53 PM CDT [facility] PLT 121(L) 151 - 353 x10'3/uL 09/04/2021 1:53 PM CDT [facility] MPV 12.4(H) 9.6 - 12.0 FL 09/04/2021 1:53 PM CDT [facility] RBC MORPHOLOGY NORMAL 09/04/2021 1:53 PM CDT [facility] PLT MORPH. NORMAL 09/04/2021 1:53 PM CDT [facility] WBC MORPHOLOGY NORMAL 09/04/2021 1:53 PM CDT [facility] LYMPHOCYTES % 40.6 15.8 - 45.0 % 09/04/2021 1:53 PM CDT [facility] NEUTROPHILS % 44.9 42.1 - 71.9 % 09/04/2021 1:53 PM CDT [facility] MONOCYTES % 9.3 5.7 - 12.5 % 09/04/2021 1:53 PM CDT [facility] EOSINOPHILS 4.6 0.0 - 5.6 % 09/04/2021 1:53 PM CDT [facility] BASOPHILS 0.4 0.0 - 1.3 % 09/04/2021 1:53 PM CDT [facility] ABS. NEUTROPHILS 2.03 1.40 - 6.00 x10'3/uL 09/04/2021 1:53 PM CDT [facility] IMMATURE GRANS % 0.2 0.0 - 0.5 % 09/04/2021 1:53 PM CDT [facility] ABS. LYMPHOCYTES 1.84 0.80 - 4.70 x10'3/uL 09/04/2021 1:53 PM CDT [facility] 09/04/2021 10:0 8 AM CDT Akilah Gardner NP LABORATORY Final Result [facility] [address] [place] [address], * (ABNORMAL) COMPREHENSIVE METABOLIC PANEL (09/04/2021 10:08 AM CDT) GLUCOSE 97 70 - 99 MG/DL 09/04/2021 3:57 PM CDT [facility] BUN 12 7 - 18 MG/DL 09/04/2021 3:57 PM CDT [facility] CREATININE S/P/B 0.53(L) 0.55 - 1.02 MG/DL 09/04/2021 3:57 PM CDT [facility] SODIUM S/P/B 143 136 - 145 MMOL/L 09/04/2021 3:57 PM CDT [facility] POTASSIUM S/P/B 4.6 3.5 - 5.1 MMOL/L 09/04/2021 3:57 PM CDT [facility] CHLORIDE S/P/B 106 100 - 108 MMOL/L 09/04/2021 3:57 PM CDT [facility] CO2 30.1 21 - 32 MMOL/L 09/04/2021 3:57 PM CDT [facility] CALCIUM S/P/B 9.5 8.5 - 10.1 MG/DL 09/04/2021 3:57 PM CDT [facility] BILIRUBIN TOTAL S/P/B 0.4 0.2 - 1.2 MG/DL 09/04/2021 3:57 PM CDT [facility] TOTAL PROTEIN S/P/B 6.5 6.4 - 8.2 G/DL 09/04/2021 3:57 PM CDT [facility] ALBUMIN S/P/B 3.9 3.4 - 5.0 G/DL 09/04/2021 3:57 PM CDT [facility] AST 19 15 - 37 U/L 09/04/2021 3:57 PM CDT [facility] ALT 24 14 - 55 U/L 09/04/2021 3:57 PM T [facility] ALKALINE PHOSPHATASE S/P/B 101 50 - 136 U/L 09/04/2021 3:57 PM T [facility] ANION GAP 6.9 5 - 15 MMOL/L 09/04/2021 3:57 PM T [facility] BUN CREATININE RATIO 22.6 6 - 26 09/04/2021 3:57 PM T [facility] A/G RATIO 1.5 1.0 - 2.0 RATIO 09/04/2021 3:57 PM T [facility] EGFR NON-AFR. AMER. >90 >90 ML/MIN/1.7 3 M2 09/04/2021 3:57 PM T [facility] EGFR AFR. AMER. >90 >90 ML/MIN/1.7 3 M2 09/04/2021 3:57 PM T [facility] Comment: NOTE: eGFR is not calculated for patients <18 years of age. This is an estimated GFR (CKD EPI) and should not be used for calculating drug doses. 09/04/2021 10:0 8 AM CDT us Akilah Gardner NP LABORATORY Final Result [facility] [address] [place] [address], [place] [phone] * (ABNORMAL) LIPID PANEL (09/04/2021 10:08 AM CDT) [facility] Signature CHOLESTEROL 181 <200.0 MG/DL 09/04/2021 3:57 PM CDT [facility] TRIGLYCERIDES 123 <150 MG/DL 09/04/2021 3:57 PM CDT [facility] HDL 46 >40.0 MG/DL 09/04/2021 3:57 PM CDT [facility] LDL (CALCULATED) 110(H) <100 MG/DL 09/04/2021 3:57 PM CDT [facility] NON HDL CHOLESTEROL 135(H) <130 MG/DL 09/04/2021 3:57 PM CDT [facility] CHOL/HDL RATIO 3.9 0.0 - 4.5 09/04/2021 3:57 PM T [facility] VLDL CALCULATION 25 5 - 55 MG/DL 09/04/2021 3:57 PM T [facility] LIPID INTERPRETATION 09/04/2021 3:57 PM T [facility] Comment: NIH CONCENSUS REPORT [...] ?>=130 09/04/2021 10:0 8 AM CDT Akilah Gardner NP LABORATORY Final Result Performing Organization Address [facility] de Phone Number [facility] [address] [place] [address], [place] [phone] * (ABNORMAL) TSH W/REFLEX (09/04/2021 10:08 AM CDT) TSH <0.007(L) 0.358 - 3.74 uIU/ML 09/04/2021 3:58 PM CDT [facility] Comment: HIGH DOSES OF BIOTIN MAY INTERFERE WITH THIS TEST RESULT. CORRELATION TO CLINICAL HISTORY AND PRESENTATION RECOMMENDED. 09/04/2021 10:0 8 AM CDT us Akilah Gardner NP LABORATORY Final Result Performing Organization Address [facility] de Phone Number [facility] [address] [place] [address], [place] [phone] * (ABNORMAL) VITAMIN D, 25 [place] (09/04/2021 10:08 AM CDT) VITAMIN D 25 HYDROXY S/P/B 29(L) 30 - 100 NG/ML 09/04/2021 2:25 PM CDT [facility] Comment: ? INTERPRETATION ? DEFICIENT ??<20 ? INSUFFICIENT 20-29 ?SUFFICIENT 30-100 09/04/2021 10:0 8 AM CDT us Akilah Gardner NP LABORATORY Final Result Performing Organization Address [facility] de Phone Number [facility] [address] [place] [address], [place] [phone] * ALBUMIN URINE RANDOM (09/04/2021 10:08 AM CDT) Pathologist [facility] CREATININE (U) 131.4 28 - 217 MG/DL 09/04/2021 2:18 PM CDT [facility] MICROALBUMIN (U) 0.5 <2.0 mg/dL 09/04/20 2:18 PM CDT [facility] ALBUMIN/CREAT RATIO 3.8 <30.0 MG/G 09/04/2021 2:18 PM CDT [facility] URINE SPECIMEN / Unknown 09/04/2021 10:08 AM CDT us Akilah Gardner NP URINE ORDERABLES Final Result Performing Organization Address [facility] Co de Phone Number [facility] [address] [place] [address], [place] [phone] documented in this encounter Visit Diagnoses Diagnosis Annual physical exam Routine general medical examination at a [facility] Anxiety and depression Dysthymic disorder documented in this encounter Additional Health Concerns Assessment Noted Time PHQ-9 Depression Total Score: 14 021 8:58 AM CDT documented as of this encounter Care Teams Librarian Special Library Relationship Specialty Start Date End Date Akilah Gardner, ENTERPRISE DATA ARCHITECT PCP - General NURSE PRACTITIONER 09/01/21 08/02/22 documented as of this encounter
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
--- OUTSIDE RECORDS SUMMARY | 2024-10-22 20:35 | XMS_ITS | Encounter Summary ---
Author Organization [facility] Address [address] [place] [address]. [place] [address] [place] [address] Care Team Providers Care Project Officer Name Role Phone Unavailable Primary Care Provider Unavailabl e Encounter Details Date Type Department Care Team (Late st Contact Info) Description 02/23/2016 Abstract [facility] [address] [place], [place] [id number] Aidee Gray, SIGN DESIGNER [address] [place] [address] Social History Tobacco Use Types Packs/Day Years Used Date Smoking Tobacco: Never Assessed Comments Unknown Sex and Gender Information Value Date Recorded Sex Assigned at Female 12/15/2018 11:48 AM NUT CRACKER Legal Sex Female 8:12 PM CDT Gender Identity Female 12/15/2018 11:48 AM NUT CRACKER Sexual Orientation Straight 12/15/2018 11 :21 AM NUT CRACKER documented as of this encounter Plan of Treatment Not on file documented as of this encounter Visit Diagnoses Diagnosis Encounter for screening for infections with predominantly sexual mode of transmission Screening examination for venereal disease documented in this encounter
--- OUTSIDE RECORDS SUMMARY | 2024-10-22 20:35 | XMS_ITS | Encounter Summary ---
Author Organization [facility] Address [address] [place] [address]. [place], [place] [address] [place] [address] Care Team Providers Care Presser Cotton Ginning Name Role Phone Chantelle Hong MACHINE SET UP OPERATOR PAPER GOODS Primary Care Provider Unav ailable Encounter Details Date Type Department Care Team (Latest Contact Info) Description 06/23/2020 Travel Social History Tobacco Use Types Packs/Day [...] Sex Assigned at Female 12/15/2018 11:48 AM ORDER RUNNER Legal Sex Female 8:12 PM CDT Gender Identity Female 12/15/2018 11:48 AM ORDER RUNNER Sexual Orientation Straight 12/15/2018 11 :21 AM ORDER RUNNER Occupation Industry Job Start Date Job End Date Formerly [employer] Not on file Not on file Not [...] documented as of this encounter Care Teams Presser Cotton Ginning Relationship Specialty Start Date End Date Chantelle Hong NP PCP - General NURSE PRACTITIONER 12/15/18 08/31/21 documented as of this encounter
--- OUTSIDE RECORDS SUMMARY | 2024-10-22 20:35 | XMS_ITS | Encounter Summary ---
Author Organization [facility] Address [address] [place] [address]. [place] [id number] Care Team Providers Care Driver Courier Name Role Phone Jazmyne Hong NETWORK SECURITY OFFICER Primary Care Provider Unav ailable Reason for Visit * Reason Comments Feet discoloration on bot brandon of both feet Encounter Details Date Type Department Care Team (Late st Contact Info) Description 12/15/2018 11:20 AM OCULAR PATHOLOGIST Office Visit [facility] Family & Internal Medicine [address] [phone] Jazmyne Hong NP Feet (discoloration on bottom of both feet) Social History Tobacco Use Types Packs/Day Years Used Date Smoking Tobacco: Every Day Cigarettes Smokeless Tobacco: Never Tobacco Cessation:Ready to Q uit: Yes Alcohol Use Standard Drinks/Week Comments Yes 0 (1 standard drink = 0.6 oz pur e alcohol) AUDIT-C Answer Date Recorded Frequency of Alcohol Consumption Monthly or less 12/15/2018 Average Number of Drinks Not on file 019 Frequency of Binge Drinking Not on file 12/05 Education Answer Date Recorded What is the highest level of school you have completed or the highest degree you have received? Some college, no degree 12/15/2018 Comments Unknown Sex and Gender Information Value Date Recorded Sex Assigned at Female 12/15/2018 11:48 AM OCULAR PATHOLOGIST Legal Sex Female 8:12 PM CDT Gender Identity Female 12/15/2018 11:48 AM OCULAR PATHOLOGIST Sexual Orientation Straight 12/15/2018 11 :21 AM OCULAR PATHOLOGIST documented as of this encounter Last Filed Vital Signs Vital Sign Reading Time Taken Comments Blood Pressure 128/72 12/15/2018 11:16 AM OCULAR PATHOLOGIST Pulse 85 12/15/2018 11:16 AM OCULAR PATHOLOGIST Temperature 36.4 ??C (97.5 ??F) 12/15/2018 11:[address] Respiratory Rate 16 12/15/2018 11:16 AM OCULAR PATHOLOGIST Oxygen Saturation 97% 12/15/2018 11:16 AM OCULAR PATHOLOGIST Inhaled Oxygen Concentration - - Weight 70.6 kg (155 lb 9.6 oz) 12/15/2018 11:16 AM OCULAR PATHOLOGIST Height 167.6 cm (5' 6 ) 12/15/2018 11:16 AM OCULAR PATHOLOGIST Body Mass Index 25.11 12/15/2018 11:16 AM OCULAR PATHOLOGIST documented in this encounter Patient Instructions * Patient Instructions* Jazmyne Hong, NETWORK SECURITY OFFICER - 12/15/2018 11:20 AM OCULAR PATHOLOGIST Patient Education Patient Education Athlete's Foot Discharge Instructions About this topic Athlete's foot is the name for ringworm on your feet. Ringworm is a skin infection. It is caused bya germ. It is not caused by a worm. The infected skin is often shaped like a ring with reddish edges. The center may be flaky, dry, and itchy. You can have ringworm on all parts of your body. This infection spreads easily from one person to another. You can get it by touching other people or by touching things that they have touched. The germs can also be spread by pets. What care is needed at home? ?? Ask your doctor what you need to do when you go home. Make sure you ask questions if you do not understand what the doctor says. This way you will know what you need to do. ?? Keep your skin clean and dry. Shower every day. Dry yourself well after showering. ?? Wear loose clothing that will not rub and bother the infected area. ?? Change your clothes and towels every day while you have the infection. ?? Wash anything that has touched your rash in hot water. This includes towels and clothing. ?? Do not scratch the rash. Scratching may cause it to spread or get infected. What follow-up care is needed? Your doctor may ask you to make visits to the office to check on your progress. Be sure to keep these visits. What drugs may be needed? The doctor may order drugs to: ?? Fight an infection ?? Kill the fungus ?? Help with itching Will physical activity be limited? Do not play sports where you have to touch other people, like wrestling, until your rash is gone. Do not share sports equipment until your rash is gone. What problems could happen? ?? Open sores ?? Infection ?? Scarring What can be done to prevent this health problem? ?? Wash your hands regularly. Wash for 20 seconds with soap and running water. ?? Clean exercise equipment at the gym before you use it. ?? Shower after playing sports where you touch other people. ?? Wear slippers or sandals in places where there are people like spas, locker rooms, and gym showers. ?? Keep your feet clean. Dry them well before putting on socks and shoes. ?? Do not share personal items like towels, slippers, shoes, dumont, and clothing. ?? Do not touch your pets if they have bald spots. Take them to the vet to check for ringworm. ?? Use talcum powder to control sweaty feet and hands. ?? Wear cotton socks and change them each day. ?? Watch other members of your family carefully for signs of ringworm. It is very easy to get ringworm from other people. When do I need to call the doctor? ?? Signs of infection. These include a fever of 100.4??F (38??C) or higher, chills. ?? Infected area spreads after treatment ?? Signs of wound infection. These include swelling, redness, warmth around the sores; too much pain when touched; yellowish, greenish, or bloody discharge; foul smell coming from the sores; sores opens up. ?? You are not feeling better in 2 to 3 days or you are feeling worse Teach Back: Helping You Understand The Teach Back Method helps you understand the information we are giving you. The idea is simple. After talking with the staff, tell them in your own words what you were just told. This helps to makesure the staff has covered each thing clearly. It also helps to explain things that may have been abit confusing. Before going home, make sure you are able to do these: ?? I can tell you about my condition. ?? I can tell you how to care for my skin. ?? I can tell you what I will do if my infected area is warm, red, painful, or has a foul smell coming from the sores. Where can I learn more? [employer] https://www.aad.org/public/diseases/nbctjkfvxf-bbff-guplkxdx/vkxdrda-v-knax-how- to-prevent [employer] http://www.apma.org/Learn/FootHealth.cfm?ElljZvxtny=023 Centers for Disease Control and Prevention http://www.cdc.gov/nczved/divisions/dfbmd/diseases/dermatophytes/ [employer] http://kidshealth.org/parent/infections/fungal/ringworm.html Last Reviewed Date 2016-04-18 Consumer Information Use and Disclaimer This information [...] or not to accept your health care provider???s advice, instructions or recommendations. Only your health care provider has the knowledge and training to provide advice that is right for you. Copyright Copyright ?? 2018 [employer] and its affiliates and/or licensors. All rights reserved. AR PATHOLOGIST documented in this encounter Progress Notes * Jazmyne Hong NP - 12/15/2018 11:20 AM CST Images from the original note were not included. Office Progress Note Reason for Visit: Feet (discoloration on bottom of both feet) History of Present Illness: Frances is a 43 year old female who presents today for c/o discoloration to the bottom of both of herfeet, states she had some ketoconazole cream at home and she has been using that two times daily for the past few days and she has already noticed some improvement. States she still wanted to keep today's appt to make sure she is doing the right thing and for refills of ketoconazole. Routine Foot Care This is a new problem. The current episode started 1 to 4 weeks ago. The problem occurs daily. The problem has been gradually improving. Associated symptoms include a rash. Pertinent negatives include no abdominal pain, anorexia, arthralgias, change in bowel habit, chest pain, chills, congestion, coughing, diaphoresis, fatigue, fever, headaches, joint swelling, myalgias, nausea, neck pain, numbness, sore throat, swollen glands, urinary symptoms, vertigo, visual change, vomiting or weakness. Nothing aggravates the symptoms. Treatments tried: ketoconazole. The treatment provided mild relief. ROS: Review of Systems Constitutional: Negative. Negative for chills, diaphoresis, fatigue and fever. HENT: Negative. Negative for congestion and sore throat. Eyes: Negative. Respiratory: Negative. Negative for cough. Cardiovascular: Negative. Negative for chest pain. Gastrointestinal: Negative. Negative for abdominal pain, anorexia, change in bowel habit, nausea and vomiting. Genitourinary: Negative. Musculoskeletal: Negative. Negative for arthralgias, joint swelling, myalgias and neck pain. Skin: Positive for rash. Neurological: Negative. Negative for vertigo, weakness, numbness and headaches. Endo/Heme/Allergies: Negative. Psychiatric/Behavioral: Negative. Medications: Current Outpatient Medications: ??? acidiphilus probiotic tablet, Take 2 tablets by mouth daily., Disp: , Rfl: ??? clotrimazole (CLOTRIMAZOLE ANTI-FUNGAL) 1 % cream, Apply topically 2 (two) times daily., Disp: 60 g, Rfl: 1 ??? ketoconazole 200 MG tablet, Take 1 tablet (200 mg total) by mouth daily., Disp: 14 tablet, Rfl:0 ??? multi vitamin/minerals tablet, Take 1 tablet by mouth daily., Disp: , Rfl: ??? sertraline 50 MG tablet, Take 50 mg by mouth daily., Disp: , Rfl: 2 Allergies: Allergies Allergen Reactions ??? Penicillins Unknown Medical History: History reviewed. No pertinent past medical history. Surgical History: Past Surgical History: Procedure Laterality Date ??? NONE Social History: Social History Socioeconomic History ??? Marital status: Single Spouse name: Not on file ??? Number of children: 1 ??? Years of education: Not on file ??? Highest education level: Some college, no degree Social Needs ??? Financial resource strain: Not on file ??? Food insecurity - worry: Not on file ??? Food insecurity - inability: Not on file ??? Transportation needs - medical: Not on file ??? Transportation needs - non-medical: Not on file Occupational History ??? Not on file Tobacco Use ??? Smoking status: Current Every Day Smoker Packs/day: 0.50 Types: Cigarettes ??? Smokeless tobacco: Never Used Substance and Sexual Activity ??? Alcohol use: Yes Frequency: Monthly or less ??? Drug use: No ??? Sexual activity: No Other Topics Concern ??? Service No ??? Blood Transfusions Not Asked ??? Caffeine Concern Not Asked ??? Occupational Exposure Not Asked ??? Hobby Hazards Not Asked ??? Sleep Concern Not Asked ??? Stress Concern Not Asked ??? Weight Concern Not Asked ??? Special Diet Not Asked ??? Back Care Not Asked ??? Exercise Yes ??? Bike Helmet Not Asked ??? Seat Belt Yes ??? Self-Exams Not Asked ??? Wheelchair Not Asked ??? Walker Not Asked ??? Upper extremity braces/slings Not Asked ??? Lower extermity braces/slings Not Asked ??? Self Care Not Asked Social History Narrative Lives at home with her son Family History: Family History Problem Relation Name Age of Onset ??? Cancer Mother breast ??? Cancer Father prostate ??? Heart Father ??? Anxiety Father PE: Physical Exam Constitutional: She is oriented to person, place, and time. She appears well- developed and well-nourished. No distress. HENT: Head: Normocephalic and atraumatic. Eyes: Conjunctivae are normal. Right eye exhibits no discharge. Left eye exhibits no discharge. Neck: Normal range of motion. Pulmonary/Chest: Effort normal. No respiratory distress. Musculoskeletal: Normal range of motion. Neurological: She is alert and oriented to person, place, and time. Skin: Skin is warm and dry. Mild to moderate tinea pedis noted to to plantar aspect of bilateral feet. Psychiatric: She has a normal mood and affect. Her behavior is normal. Thought content normal. Filed Vitals: 02/11/19 1116 BP: 128/72 Pulse: 85 Resp: 16 Temp: 97.5 ??F (36.4 ??C) TempSrc: Oral SpO2: 97% Weight: 70.6 kg (155 lb 9.6 oz) Height: 5' 6 (1.676 m) Diagnoses/Impression: 1. Tinea pedis of both feet ketoconazole 200 MG tablet clotrimazole (CLOTRIMAZOLE ANTI-FUNGAL) 1 % cream Recommendations and Plan: Orders Placed This Encounter ??? sertraline 50 MG tablet ??? acidiphilus probiotic tablet ??? multi vitamin/minerals tablet ??? ketoconazole 200 MG tablet ??? clotrimazole (CLOTRIMAZOLE ANTI-FUNGAL) 1 % cream 1. Tinea pedia of bilateral feet. Continue ketoconazole cream two times daily and ketoconazole tablets as directed x 2 weeks. Follow up if no improvement. Time spent with patient: 20 minutes. JAZMYNE HONG NP 12/15/2018 11:49 AM AR PATHOLOGIST documented in this encounter Plan of Treatment Not on file documented as of this encounter Visit Diagnoses Diagnosis Tinea pedis of both feet- Primary documented in this encounter Care Teams Driver Courier Relationship Specialty Start Date End Date Jazmyne Hong NP PCP - General NURSE PRACTITIONER 12/15/18 08/31/21 documented as of this encounter
--- OUTSIDE RECORDS SUMMARY | 2024-10-22 20:35 | XMS_ITS | Encounter Summary ---
Author Organization [facility] Address [address] [place] [address]. [place], [place] [id number] [place] [id number] Care Team Providers Care Agricultural Crop Farm Manager Name Role Phone Unavailable Primary Care Provider Unavailabl e Encounter Details Date Type Department Care Team (Latest Contact Info) Description 12/12/2016 Abstract [facility] Social History Tobacco Use Types Packs/Day Years Used Date Smoking Tobacco: Never Assessed Comments Unknown Sex and Gender Information Value Date Recorded Sex Assigned at Female 12/15/2018 11:48 AM MUSIC ARRANGER Legal Sex Female 8:12 PM CDT Gender Identity Female 12/15/2018 11:48 AM MUSIC ARRANGER Sexual Orientation Straight 12/15/2018 11 :21 AM MUSIC ARRANGER documented as of this encounter Progress Notes * Generic Conversion MD Elle - 12/12/2016 1:09 PM CST Message Recorded as Task Date: 12/05/2016 12:33 PM, Created By: Mónica Crystal Task Name: Call Patient with results [facility] Regarding Patient: Frances Maguire, Status: In Progress Comment: Mónica Crystal - 05 Dec 2016 12:33 PM Patient Attempted to call with results but number did not work. She has a very small fracture at the bottomof the middle bone in that finger. Treatment is to keep in in a splint for 5-10 days, then tape it to the finger next to it for 3-4 weeks. We need her to come back in 1 week to reassess as she may need repeat xarys. Zarina Dougherty - 05 Dec 2016 4:28 PM TASK IN PROGRESS Zarina Dougherty 06 Dec 2016 1:23 PM TASK EDITED lmtcb with phone # [phone]- found in [employer] Zarina Dougherty 06 Dec 2016 1:24 PM TASK EDITED na on her cj # Zarina Dougherty 06 Dec 2016 1:29 PM TASK EDITED called the parent's number on the hippa form her # has changed. I changed it in PM. lmtcb. Goldie Lemus - 06 Dec 2016 2:15 PM TASK EDITED Discussed with pt the results of the x-ray. She will splint her finger and follow up with you on 12/14/16. Pt is requesting a script for something for the pain. pt is requesting something like 600mg ibuprofen. Please advise. Zarina Dougherty - 10 Dec 2016 4:57 PM TASK REASSIGNED: Previously Assigned To Mónica Crystal Kyla - 11 Dec 2016 8:09 AM TASK EDITED I sent in script for ibuprofen to [facility]. Please let her know EdwareulaZarina 11 Dec 2016 9:08 AM TASK EDITED 12/11 lmtcb/ tell rx was sent out for her. Zarina Dougherty 12 Dec 2016 1:09 PM TASK EDITED left detailed message that the med was called out to the pharm for the pain Signatures Electronically signed by : Zarina Dougherty MA; Dec 12 2016 1:09PM MUSIC ARRANGER (Author) documented in this encounter Plan of Treatment Not on file documented as of this encounter Visit Diagnoses Not on filedocumented in this encounter
--- OUTSIDE RECORDS SUMMARY | 2024-10-22 20:35 | XMS_ITS | Encounter Summary ---
Author Organization [facility] Address [address] [place] [address]. [place], [place] [id number] [place] [id number] Care Team Providers Care Web Marketing Manager Name Role Phone Chantelle Hong SOLAR THERMAL TECHNICIAN Primary Care Provider Unav ailable Encounter Details Date Type Department Care Team (Latest Contact Info) Description 07/01/2020 Travel Social History Tobacco Use Types Packs/Day [...] Sex Assigned at Female 12/15/2018 11:48 AM HYPOID GEAR TESTER Legal Sex Female 8:12 PM CDT Gender Identity Female 12/15/2018 11:48 AM HYPOID GEAR TESTER Sexual Orientation Straight 12/15/2018 11 :21 AM HYPOID GEAR TESTER Occupation Industry Job Start Date Job End Date [facility]ly [employer] Not on file Not on file Not on file COVID-19 Exposure Response Date Recorded In the last month, have you been in contact with someone who was confirmed or suspected to have Coronavirus / COVID-19? No / Unsure 07/01/2020 9:34 AM CDT documented as of this encounter Plan of Treatment Not on file documented as of this encounter Visit Diagnoses Not on filedocumented in this encounter Additional Health Concerns Assessment Noted Time PHQ-9 Depression Total Score: 5 06/23/20 20 3:28 PM CDT documented as of this encounter Care Teams Web Marketing Manager Relationship Specialty Start Date End Date Chantelle Hong NP PCP - General NURSE PRACTITIONER 12/15/18 08/31/21 documented as of this encounter
--- OUTSIDE RECORDS SUMMARY | 2024-10-22 20:35 | XMS_ITS | Encounter Summary ---
Author Organization [facility] Address [address] [place] [address]. [place], [place] [id number] [place] [address] Care Team Providers Care Quitline Counselor Name Role Phone Chantelle Hong PROMOTOR [employer] TICKET SALES Primary Care Provider Unav ailable Reason for Visit * Reason Onset Date Comments Work Excuse 07/28/2020 Encounter Details Date Type Department Care Team (Late st Contact Info) Description 07/28/2020 Telephone [facility] Family & Internal Medicine [address] [phone] Chantelle Hong NP Work Excuse Social History Tobacco Use Types Packs/Day Years [...] at Female 12/15/2018 11:48 AM DIRECTOR OF ELEMENTARY EDUCATION Legal Sex Female 8:12 PM CDT Gender Identity Female 12/15/2018 11:48 AM DIRECTOR OF ELEMENTARY EDUCATION Sexual Orientation Straight 12/15/2018 11 :21 AM DIRECTOR OF ELEMENTARY EDUCATION 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 No / Unsure 07/07/2020 3:43 PM CDT documented as of this encounter Progress Notes * Twila Bonilla MA - 07/28/2020 11:03 AM CDT Spoke with pt, advised her letter that was written at time of appt stated when pt could return to work. She stated if should be fine and if she needs anything else she will let us know. * Aidee Wu LPN - 07/28/2020 10:15 AM CDT Pt needs work release to return to work Had Covid test neg Has been fever free without med x 24 Hour liyah [employer] mirtha fax [phone] V/U cb [phone] documented in this encounter Plan of Treatment Not on file documented as of this encounter Visit Diagnoses Not on filedocumented in this encounter Additional Health Concerns Assessment Noted Time PHQ-9 Depression Total Score: 5 06/23/20 20 3:28 PM CDT documented as of this encounter Care Teams Quitline Counselor Relationship Specialty Start Date End Date Chantelle Hong NP PCP - General NURSE PRACTITIONER 12/15/18 08/31/21 documented as of this encounter
--- OUTSIDE RECORDS SUMMARY | 2024-10-22 20:35 | XMS_ITS | Encounter Summary ---
Author Organization [facility] Address [address] [place] [address]. [place], [place] [id number] [place] [address] Care Team Providers Care Soccer Coach Name Role Phone Unavailable Primary Care Provider Unavailabl e Encounter Details Date Type Department Care Team (Late st Contact Info) Description 12/28/2016 Abstract [facility] Family & Internal Medicine [facility] [address] [place] [address] Elaine Rudolph MD Social History Tobacco Use Types Packs/Day Years Used Date Smoking Tobacco: Never Assessed Comments Unknown Sex and Gender Information Value Date Recorded Sex Assigned at Female 12/15/2018 11:48 AM CANOE INSPECTOR FINAL Legal Sex Female 8:12 PM CDT Gender Identity Female 12/15/2018 11:48 AM CANOE INSPECTOR FINAL Sexual Orientation Straight 12/15/2018 11 :21 AM CANOE INSPECTOR FINAL documented as of this encounter Last Filed Vital Signs Vital Sign Reading Time Taken Comments Blood Pressure 114/62 12/28/2016 11:24 AM CANOE INSPECTOR FINAL Pulse 91 12/28/2016 11:24 AM CANOE INSPECTOR FINAL Temperature - - Respiratory Rate - - Oxygen Saturation - - Inhaled Oxygen Concentration - - Weight 74.6 kg (164 lb 6.1 oz) 12/28/2016 11:24 AM CANOE INSPECTOR FINAL Height 167.6 cm (5' 6 ) 12/28/2016 11:24 AM CANOE INSPECTOR FINAL Body Mass Index 26.53 12/28/2016 11:24 AM CANOE INSPECTOR FINAL documented in this encounter Progress Notes * Elaine Rudolph MD - 12/28/2016 11:15 AM CST Reason For Visit Acute Visit Chief Complaint F/u office visit for left middle finger. History of Present Illness Finger Sprain/Strain: The patient is being seen for a routine clinic follow-up of finger sprain. The injury is to the left middle finger. The injury occurred 3 week(s) ago. The injury resulted from afall and occurred at home. She was previously evaluated by me 3 week(s) ago. Presenting symptoms included pain, swelling, deformity and stiffness. Past evaluation has included plain radiographs of the finger. Past treatment has included ice, finger splint, estrada taping and non-opioid analgesics. Symptoms: pain, swelling, deformity and difficulty flexing the joint, but no ecchymosis and no stiffness. The patient is currently experiencing symptoms. Symptoms are located in the left proximal interphalangeal joint. There is no radiation. The patient describes the pain as dull. Onset was sudden. She describes this as mild and improving. Exacerbating factors: use of the finger. Associated symptoms: no numbness in the fingertip, no paresthesias, no redness and no locking. Current treatment includes estrada taping. Review of Systems Constitutional: no fever and no chills. Cardiovascular: no chest pain. Respiratory: no shortness of breath. Gastrointestinal: no abdominal pain, no constipation and no diarrhea. musculoskeletal symptoms Active Problems 1. Adjustment disorder with anxiety (309.24) (F43.22) 2. BMI 26.0-26.9,adult (V85.22) (Z68.26) Past Medical History 1. History of Contusion [...] (305.1) (F17.200) ?? Single Current Meds 1. Acyclovir 400 MG Oral Tablet; TAKE 1 TABLET BY MOUTH TWICE A DAY; Therapy: 30Ndd4322 to Recorded 2. Ibuprofen 600 MG Oral Tablet; TAKE 1 TABLET 3 TIMES DAILY NEEDED FOR PAIN; Therapy: 62Uio1673 to (Evaluate:58Fbt9072) Requested for: 60Ocs5207; Last Rx:[id number] Ordered 3. Sertraline HCl - 50 MG Oral Tablet; TAKE 1 TABLET DAILY; Therapy: 12Xop4840 to (Evaluate:13Hhe4179) Requested for: 71Oay6409; Last Rx:[id number] Ordered Allergies 1. Penicillins Vitals Recorded: 28Dec2016 11:24AM Temperature 99 F Heart Rate 91 Respiration 18 Systolic 114 Diastolic 62 O2 Saturation 99 Height 5 ft 6 in Weight 164 lb 6 oz BMI Calculated 26.53 BSA Calculated 1.84 Physical Exam Constitutional General appearance: No acute distress, well appearing and well nourished. Eyes Conjunctiva and lids: No swelling, erythema or discharge. Pulmonary Respiratory effort: No increased work of breathing or signs of respiratory distress. Musculoskeletal Digits and nails: Abnormal. Lt middle finger with improved ROM, slight angulation at PIP and slightdeformity of PIP, Good cap refill, sensation intact. Psychiatric Orientation to person, place, and time: Normal. Mood and affect: Normal. Assessment 1. Injury of middle finger, left, subsequent encounter (V58.89,959.5) (S69.92XD) Lt middle finger fratcure. X ray showed small avulsion. Currently estrada taping as directed and improving but finger not quite straight so will reimage to make sure no worsening. Will need to con't tobuddy tape for another 2-3 weeks Plan Injury of middle finger, left, subsequent encounter 1. XR FINGER-3RD DIGIT (MIDLE) LT ( Routine ); Status:Active; Requested for:28Dec2016; Perform:[facility]; Due:27Jan2017;Ordered; For:Injury of middle finger, left, subsequent encounter; Ordered By:Elaine Rudolph; RTC in 2-3 weeks if any concerns about healing otherwise RTC as scheduled Signatures Electronically signed by : Elaine Rudolph M.D.; Dec 28 2016 11:45AM CANOE INSPECTOR FINAL (Author) documented in this encounter Plan of Treatment Not on file documented as of this encounter Procedures Procedure Name Priority Date/Time Associated Diagnosis Comments XR THIRD FINGER LT 3V Routine 12/28/2016 4:37 PM CANOE INSPECTOR FINAL documented in this encounter Results * XR THIRD FINGER LT 3V (12/28/2016 4:37 PM CANOE INSPECTOR FINAL) Anatomical Region Laterality Modality Hand Radiographic Alexandra ging 12/28/2016 4:37 PM CANOE INSPECTOR FINAL 12/28/2016 4:37 PM CANOE INSPECTOR FINAL Narrative 12/28/2016 4:44 PM CANOE INSPECTOR FINAL GRACIE,JAMIR ? ADMIT/SERVICE DATE: 12/28/16 ?? ACCT: [id number] ?DISCHARGE DATE: ?? : 1975 ??SEX: F ?ORD SITE: [facility] ?? PT TYPE: REG CLI ? ORDERING MD: ELAINE RUDOLPH MD ? STUDY DATE ? REPORT # ?ORDER # ? EXT ORDER ID ?? 12/28/16 ? [id number] ? [id number] ?[id number] ? PROC CODE: ? [id number] ? PROCEDURE DESCRIPTION: ?? XR FINGER 3RD DIGIT MIDDLE LT ? IMAGING STUDIES: XR FINGER 3RD DIGIT MIDDLE LT ? DATE: 12/28/2016 2:35 PM ? CLINICAL HISTORY: OTHER - INJURY TO LEFT MIDDLE FINGER ??. ? COMPARISON: 12/05/2016 ? CONCLUSION: ? 1. ??THERE IS MINIMAL CALLUS FORMATION ABOUT INCOMPLETELY HEALED AVULSION FRACTURE OFF THE PALMAR AND PROXIMAL ASPECT OF THE MIDDLE PHALANX OF THIS DIGIT. THERE IS INTRA- ARTICULAR EXTENSION.. NO NEW FRACTURE.. ? 2. ??NO RADIOPAQUE FOREIGN BODIES OR ABNORMAL SOFT TISSUE CALCIFICATIONS NOTED. NO SOFT TISSUE ABNORMALITIES. ? ELECTRONICALLY SIGNED BY Kenneth PETERSON MD ? Procedure Note Elaine Rudolph MD - 08/27/2018 JAMIR BOWMAN ADMIT/SERVICE DATE:12/28/16 ACCT: [id number] DISCHARGE DATE: : 1975 SEX: F ORD SITE: [facility] PT TYPE: REG CLI ORDERING MD: ELVER RUDOLPH MD STUDY DATE REPORT # ORDER # EXT ORDER ID 12/28/16 [id number] PROC CODE: [id number] PROCEDURE DESCRIPTION: XR FINGER 3RD DIGIT MIDDLE LT IMAGING STUDIES: XR FINGER 3RD DIGIT MIDDLE LT DATE: 12/28/20162:35 PM CLINICAL HISTORY: OTHER - INJURY TO LEFT MIDDLE FINGER . COMPARISON: 12/05/2016 CONCLUSION: 1. THERE IS MINIMAL CALLUS FORMATION ABOUT INCOMPLETELY HEALED AVULSIONFRACTURE OFF THE PALMAR AND PROXIMAL ASPECT OF THE MIDDLE PHALANX OF THIS DIGIT. THERE ISINTRA-ARTICULAR EXTENSION.. NO NEW FRACTURE.. 2. NO RADIOPAQUE FOREIGN BODIES OR ABNORMAL SOFT TISSUE CALCIFICATIONSNOTED. NO SOFT TISSUE ABNORMALITIES. ELECTRONICALLY SIGNED BY Kenneth PETERSON MD Elaine Rudolph MD GENERAL IMAGING Final Result documented in this encounter Visit Diagnoses Not on filedocumented in this encounter
--- OUTSIDE RECORDS SUMMARY | 2024-10-22 20:35 | XMS_ITS | Encounter Summary ---
Author Organization [facility] Address [address] [place] [address]. [place], [place] [id number] [place] [address] Care Team Providers Care Code Number Stamper Name Role Phone Chantelle Hong FORECLOSURE FIELD INSPECTOR Primary Care Provider Unav ailable Encounter Details Date Type Department Care Team (Late st Contact Info) Description 10/14/2020 Orders Only [facility] Family & Internal Medicine [facility] [address] [place] [address] Elvira Martinez MA Social History Tobacco Use Types Packs/Day Years [...] Sex Assigned at Female 12/15/2018 11:48 AM SONOGRAPHY TECHNICIAN Legal Sex Female 8:12 PM CDT Gender Identity Female 12/15/2018 11:48 AM SONOGRAPHY TECHNICIAN Sexual Orientation Straight 12/15/2018 11 :21 AM SONOGRAPHY TECHNICIAN 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 Not on file Not on file documented as of this encounter Plan of Treatment Not on file documented as of this encounter Visit Diagnoses Diagnosis Herpes simplex Herpes simplex without mention of complication documented in this encounter Additional Health Concerns Assessment Noted Time PHQ-9 Depression Total Score: 5 06/23/20 20 3:28 PM CDT documented as of this encounter Care Teams Code Number Stamper Relationship Specialty Start Date End Date Chantelle Hong NP PCP - General NURSE PRACTITIONER 12/15/18 08/31/21 documented as of this encounter
--- OUTSIDE RECORDS SUMMARY | 2024-10-22 20:35 | XMS_ITS | Encounter Summary ---
Author Organization [facility] Address [address] [place] [address]. [place] [id number] [place] [address] Care Team Providers Care Agronomy Internship Name Role Phone Unavailable Primary Care Provider Unavailabl e Encounter Details Date Type Department Care Team (Latest Contact Info) Description 09/09/2018 Scan [facility] , Generic Conversion, Social History Tobacco Use Types Packs/Day Years Used Date Smoking Tobacco: Never Assessed Comments Unknown Sex and Gender Information Value Date Recorded Sex Assigned at Female 12/15/2018 11:48 AM REPAIRER WELDING SYSTEMS AND EQUIPMENT Legal Sex Female 8:12 PM CDT Gender Identity Female 12/15/2018 11:48 AM REPAIRER WELDING SYSTEMS AND EQUIPMENT Sexual Orientation Straight 12/15/2018 11 :21 AM REPAIRER WELDING SYSTEMS AND EQUIPMENT documented as of this encounter Plan of Treatment Not on file documented as of this encounter Visit Diagnoses Not on filedocumented in this encounter
--- OUTSIDE RECORDS SUMMARY | 2024-10-22 20:35 | XMS_ITS | Encounter Summary ---
Author Organization [facility] Address [address] [place] [address]. [place], [place] [address] [place] [address] Care Team Providers Care Instructional Technology Facilitator Name Role Phone Chantelle Hong NP Primary Care Provider Unav ailable Encounter Details Date Type Department Care Team (Late st Contact Info) Description 11/30/2019 Orders Only [facility] Family & Internal Medicine [facility] [address] [place] [address] Chantelle Hong, OTONIEL Social History [...] Sex Assigned at Female 12/15/2018 11:48 AM FLAMER SEALER Legal Sex Female 8:12 PM CDT Gender Identity Female 12/15/2018 11:48 AM FLAMER SEALER Sexual Orientation Straight 12/15/2018 11 :21 AM FLAMER SEALER Occupation Industry Job Start Date Job End Date [employer] Not on file Not on file Not on file documented as of this encounter Plan of Treatment Not on file documented as of this encounter Visit Diagnoses Diagnosis Low TSH level- Primary Nonspecific abnormal results of thyroid function study Elevated sed rate Elevated sedimentation rate Irritation of both eyes Other ill-defined disorder of eye documented in this encounter Care Teams Instructional Technology Facilitator Relationship Specialty Start Date End Date Chantelle Hong NP PCP - General NURSE PRACTITIONER 12/15/18 08/31/21 documented as of this encounter
--- OUTSIDE RECORDS SUMMARY | 2024-10-22 20:35 | XMS_ITS | Encounter Summary ---
Author Organization [facility] Address [address] [place] [address]. [place] [id number] Care Team Providers Care Edger Automatic Name Role Phone Jazmyne Hong LACE BURN OUT TENDER Primary Care Provider Unav ailable Reason for Visit * Reason Comments Fever SOB, diarrhea, nause a, tired, body aches, headache started yesterday, 2nd cycle in 2.5 weeks Encounter Details Date Type Department Care Team (Late st Contact Info) Description 11/27/2019 9:20 AM TURN DOWN ATTENDANT Office Visit [facility] Family [facility] Internal [facility] [address] [phone] Jazmyne Hong NP Fever (SOB, diarrhea, nausea, tired, body aches, headache started yesterday, 2nd cycle in 2.5 weeks) Social History Tobacco Use Types Packs/Day Years [...] Sex Assigned at Female 12/15/2018 11:48 AM TURN DOWN ATTENDANT Legal Sex Female 8:12 PM CDT Gender Identity Female 12/15/2018 11:48 AM TURN DOWN ATTENDANT Sexual Orientation Straight 12/15/2018 11 :21 AM TURN DOWN ATTENDANT 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 Not on file Not on file documented as of this encounter Last Filed Vital Signs Vital Sign Reading Time Taken Comments Blood Pressure 102/68 11/27/2019 9:24 AM TURN DOWN ATTENDANT Pulse 78 11/27/2019 9:24 AM TURN DOWN ATTENDANT Temperature 37.3 ??C (99.1 ??F) 11/27/2019 9:24 AM CS T Respiratory Rate 16 11/27/2019 9:24 AM TURN DOWN ATTENDANT Oxygen Saturation 96% 11/27/2019 9:24 AM TURN DOWN ATTENDANT Inhaled Oxygen Concentration - - Weight 75.4 kg (166 lb 3.2 oz) 11/27/2019 9:24 A M TURN DOWN ATTENDANT Height 167.6 cm (5' 6 ) 11/27/2019 9:24 AM TURN DOWN ATTENDANT Body Mass Index 26.83 11/27/2019 9:24 AM TURN DOWN ATTENDANT documented in this encounter Patient Instructions * Patient Instructions* Jazmyne Hong, LACE BURN OUT TENDER - 11/27/2019 9:20 AM TURN DOWN ATTENDANT Images from the original note were not included. Patient Education Patient Education Fatigue Discharge Instructions About this topic Fatigue is a strong feeling of being tired and weak. This often happens after doing activities thatare very hard to do. Then, you don't have much energy to do other things. Just as your body can be fatigued, your mind can as well. You might have trouble being able to think clearly about things. Some people have little desire to do anything. Fatigue is normal when you have had physical and mentalactivity. Stress can also cause fatigue. Other causes of fatigue can be the flu or other health problems, drugs, or sleep problems. Fatigue can also be a sign of a more serious problem. Some of these are: ?? Low red blood cells ?? Anxiety or worrying too much ?? Low mood ?? Always being in pain ?? Problems with your thyroid, liver, or kidneys ?? Drug or alcohol use ?? Health problems like cancer, arthritis, and heart or lung disease Most of the time, fatigue will get better after a few days of rest. What care is needed at home? ?? Ask your doctor what you need to do when you go home. Make sure you ask questions if you do not understand what the doctor says. This way you will know what to do. ?? Try to get at least 8 hours of sleep at night. Taking a short nap or resting during the day may help. But this can also make it hard to get a good night's sleep. If you take several naps during the day, you may want to not take as many to see if you sleep better at night. ?? Try doing some light exercise each day. This may help give you more energy. You may want to avoid activities that need a lot of energy. Try to find the right amount for you. ?? Ask your doctor or dietitian for foods that will help you get back your strength and energy. Don't eat foods that have a lot of sugar. ?? Try relaxation and breathing exercises. Things like yoga, imagery, and music therapy can also help ease stress. What follow-up care is needed? ?? Your doctor may ask you to make visits to the office to check on your progress. Be sure to keep these visits. ?? You may have some tests to help the doctor find causes for your fatigue. ?? If your fatigue is due to mental stress, your doctor may want you to see a psychologist or counselor to help you with your worries and anxiety. What drugs may be needed? The doctor may order drugs to: ?? Give extra vitamins and minerals ?? Treat the problem that causes the fatigue Will physical activity be limited? Physical activities may be limited until you are feeling better. Go back to your normal activities a little bit at a time. What problems could happen? ?? Body's normal defenses or immune system are lowered ?? Not able to do the things you often do ?? Problems with sex ?? Not feeling hungry ?? Not being able to act as fast or do things as well. This could cause accidents when driving, at work, or at home. ?? Headaches, feeling angry, and not able to think clearly about things. These could cause you to not make good decisions. ?? Trouble with your memory or concentration ?? Having problems walking and exercising ?? Falling asleep during the day ?? Having problems seeing or seeing things that are not really there ?? Feeling like not doing things When do I need to call the doctor? ?? Get help right away if you have any sudden changes with your body such as weakness, numbness, pain, or breathing problems. ?? You faint or pass out. ?? You are too weak to walk and do daily activities. ?? You are not feeling better in 2 to 3 days or you are feeling worse Teach Back: Helping You Understand The Teach Back Method helps you understand the information we are giving you. After you talk with the staff, tell them in your own words what you learned. This helps to make sure the staff has described each thing clearly. It also helps to explain things that may have been confusing. Before going home, make sure you can do these: ?? I can tell you about my condition. ?? I can tell you ways to help my fatigue. ?? I can tell you what I will do if I have weakness, numbness, pain, or trouble breathing. Where can I learn more? NHS Choices http://www.nhs.uk/livewell/orpzrvluv-yis-vsdqlwb/pages/lzsertlon-rzh-swhinvr.asp x [place] Centers for Disease Control and Prevention http://www.cdc.gov/cfs/ Last Reviewed Date 2019-06-11 Consumer Information Use and Disclaimer This information [...] is right for you. Copyright Copyright ?? 2019 [employer] and its affiliates and/or licensors. All rights reserved. Patient Education Patient Education Cough Discharge Instructions, Adult About this topic Coughing is an important reflex that helps clear the throat and airways. But, cough is also one of the common signs of illness. A cough can be dry or productive. Acute cough may go away in about 3 weeks or less. A chronic cough can last longer than 3 weeks. A cough most often points to a disease in the throat, airways, or lungs. It may be from an infection or allergies. Ear, heart, or stomach acid problems may cause coughs. Some coughs are from lung damage from smoking or other lung disease. What care is needed at home? ?? Ask your doctor what you need to do when you go home. Make sure you ask questions if you do not understand what the doctor says. This way you will know what you need to do. ?? Take your drugs as ordered by doctor. ?? Try to thin mucus. ? Drink lots of liquids. ? Use a cool-mist humidifier to avoid dry air. ? Add salt drops to each nostril. Any normal saline drop works. ?? Stay away from smoke and airborne irritants such as pollen and dust. ?? Take warm, steamy showers to help soothe the cough. ?? Use hard candy or cough drops to soothe sore throat and cough. What follow-up care is needed? Your doctor may ask you to make visits to the office to check on your progress. Be sure to keep these visits. What drugs may be needed? The doctor may order drugs to: ?? Control coughing ?? Get rid of or thin mucus ?? Block allergens if your cough is due to allergies ?? Increase airflow if your cough is due to asthma or COPD ?? Reduce swelling of the airways Will physical activity be limited? Your cough may interfere with some of your activities. What changes to diet are needed? Some people feel milk products worsen their sputum production and worsen their cough. There is no proof that this is true. There is no need to reduce milk intake. Honey has been shown to be as effective as the leading mnky-yte-gougyce (OTC) drug for calming coughs. Use 1/2 to 1 teaspoon (2.5 mL to 5 mL) of honey as needed. It can thin the secretions and loosen the cough. Never give honey to a child under the age of 1. What can be done to prevent this health problem? ?? Wash your hands often with soap and water for at least 20 seconds, especially after coughing or sneezing. Alcohol-based hand sanitizers also work to kill the virus. ?? If you are sick, cover your mouth and nose with tissue when you cough or sneeze. You can also cough into your elbow. Throw away tissues in the trash and wash your hands after touching used tissues. ?? Clean items and surfaces you most often touch like door handles, remotes, phones, or toys. Wipe them with a disinfectant. This can help reduce the spread of infection. ?? Do not get too close (kissing, hugging) to people who are sick. ?? Do not share towels or hankies with anyone who is sick. ?? Stay away from crowded places. ?? Get a flu shot each year. When do I need to call the doctor? ?? Signs of infection. These include a fever of 100.4??F (38??C) or higher, chills, very bad sore throat, ear or sinus pain, cough, more mucus or change in color of mucus. ?? Wheezing, chest tightness, lips turn blue with coughing, or other problems with breathing ?? If you have violent coughing episodes ?? If you are losing weight (but not trying to) and have night sweats ?? If you have numbness, tingling, or swelling in your face, lips, tongue, or throat ?? If you have swelling in your legs ?? You are not feeling better in [...] my condition. ?? I can tell you what I can do to help thin the mucus and ease my cough. ?? I can tell you what I will do if I have wheezing, chest tightness, my lips turn blue with coughing, or I have other trouble breathing. Where can I learn more? [employer] https://familydoctor.org/eilfc-jnevwyyn-mbnyebzbofwzf-gzxl-tqt-sonlndq/ NHS Choices https://www.nhs.uk/conditions/cough/ Last Reviewed Date 2018-01-09 Consumer Information Use and Disclaimer This information [...] is right for you. Copyright Copyright ?? 2019 [employer]. and its affiliates and/or licensors. All rights reserved. DOWN ATTENDANT DOWN ATTENDANT documented in this encounter Progress Notes * Jazmyne Hong NP - 11/27/2019 9:20 AM CST Images from the original note were not included. Office Progress Note Reason for Visit: Fever (SOB, diarrhea, nausea, tired, body aches, headache started yesterday, 2nd cycle in 2.5 weeks) History of Present Illness: Frances is a 44 year old female who presents today for c/o fever, shortness of breath, diarrhea, fever, fatigue, body aches and headaches. States started yesterday and this is her second time she has had these symptoms in the past 2 weeks. Fever This is a recurrent problem. The current episode started 1 to 4 weeks ago. The problem occurs intermittently. The problem has been waxing and waning. The maximum temperature noted was 100 to 100.9 F.The temperature was taken using a tympanic thermometer. Associated symptoms include congestion, diarrhea, headaches, muscle aches and nausea. Pertinent negatives include no abdominal pain, chest pain, coughing, ear pain, rash, sleepiness, sore throat, urinary pain, vomiting or wheezing. She has tried acetaminophen for the symptoms. The treatment provided mild relief. Risk factors: no contaminated food, no contaminated water, no hx of cancer, no immunosuppression, no occupational exposure, no recent sickness, no recent travel and no sick contacts Fatigue This is a recurrent problem. The current episode started 1 to 4 weeks ago. The problem occurs daily. The problem has been unchanged. Associated symptoms include congestion, fatigue, a fever, headaches, myalgias and nausea. Pertinent negatives include no abdominal pain, anorexia, arthralgias, changein bowel habit, chest pain, chills, coughing, diaphoresis, joint swelling, neck pain, numbness, rash, sore throat, swollen glands, urinary symptoms, vertigo, visual change, vomiting or weakness. Nothing aggravates the symptoms. She has tried acetaminophen and rest for the symptoms. The treatment provided no relief. ROS: Review of Systems Constitutional: Positive for fatigue, fever and malaise/fatigue. Negative for chills and diaphoresis. HENT: Positive for congestion and sinus pain. Negative for ear pain, hearing loss, sore throat and tinnitus. Eyes: Positive for pain (states occasional eye pain since last summer to right eye, states itchy and hurts at times. ). Negative for blurred vision, double vision, discharge and redness. Respiratory: Positive for shortness of breath (occasional dyspnea with anxiety). Negative for coughand wheezing. Cardiovascular: Negative. Negative for chest pain and leg swelling. Gastrointestinal: Positive for diarrhea and nausea. Negative for abdominal pain, anorexia, change in bowel habit and vomiting. Genitourinary: Negative. Negative for dysuria. Musculoskeletal: Positive for myalgias. Negative for arthralgias, joint swelling and neck pain. Skin: Negative. Negative for itching and rash. Neurological: Positive for headaches. Negative for dizziness, vertigo, tingling, tremors, sensory change, speech change, weakness and numbness. Endo/Heme/Allergies: Negative. Psychiatric/Behavioral: Positive for depression. Negative for hallucinations, memory loss, substance abuse and suicidal ideas. The patient is nervous/anxious. [...] ), Disp: 1 Bottle, Rfl: 6 ??? doxycycline hyclate 100 MG capsule, Take 1 capsule (100 mg total) by mouth 2 (two) times daily for 10 days., Disp: 20 capsule, Rfl: 0 ??? MAGNESIUM ASPARTATE OR, Take 400 mg [...] no degree Occupational History ??? Occupation: Formerly [employer] Social Needs ??? Financial resource strain: Not [...] file Gets together: Not on file Attends confucianism service: Not on file Active member of [...] well-nourished. HENT: Head: Normocephalic. Right Ear: Hearing, external ear and ear canal normal. A middle ear effusion is present. Left Ear: Hearing, tympanic membrane, external ear and ear canal normal. Nose: Mucosal edema present. Right sinus exhibits frontal sinus tenderness. Right sinus exhibits nomaxillary sinus tenderness. Left sinus exhibits frontal sinus tenderness. Left sinus exhibits no maxillary sinus tenderness. Mouth/Throat: Uvula is midline and mucous membranes are normal. Posterior oropharyngeal erythema present. Eyes: Pupils are equal, round, and reactive to light. Conjunctivae and EOM are normal. Lids are everted and swept, no foreign bodies found. Right eye exhibits no discharge. Left eye exhibits no discharge. Neck: Trachea normal, normal range of motion and full passive range of motion without pain. Neck supple. Cardiovascular: Normal rate, regular rhythm, S1 normal, S2 normal, normal heart sounds and normal pulses. No murmur heard. Pulmonary/Chest: Effort normal. She has decreased breath sounds in the right upper field, the rightmiddle field, the right lower field, the left upper field, the left middle field and the left lowerfield. Musculoskeletal: Normal range of motion. Neurological: She is alert and oriented to person, place, and time. She has normal strength. No sensory deficit. Skin: Skin is warm, dry and intact. Psychiatric: She has a normal mood and affect. Her speech is normal and behavior is normal. Thoughtcontent normal. Nursing note and vitals reviewed. Filed Vitals: 11/27/19 0924 BP: 102/68 Pulse: 78 Resp: 16 Temp: 99.1 ??F (37.3 ??C) TempSrc: Oral SpO2: 96% Weight: 75.4 kg (166 lb 3.2 oz) Height: 5' 6 (1.676 m) Diagnoses/Impression: 1. Fatigue TSH W/REFLEX COMPREHENSIVE METABOLIC PANEL CBC W/DIFF AUTOMATED HETEROPHILE ANTIBODIES,SCREEN VENIPUNC ARM DRAW 2. Joint pain RHEUMATOID FACTOR, QUANT SED RATE, ERYTHROCYTE (ESR) VENIPUNC ARM DRAW 3. Enlarged lymph nodes HETEROPHILE ANTIBODIES,SCREEN VENIPUNC ARM DRAW 4. Upper respiratory tract infection, unspecified type doxycycline hyclate 100 MG capsule Recommendations and Plan: Orders Placed This Encounter ??? VENIPUNC ARM DRAW ??? TSH W/REFLEX ??? COMPREHENSIVE METABOLIC PANEL ??? CBC W/DIFF AUTOMATED ??? RHEUMATOID FACTOR, QUANT ??? HETEROPHILE ANTIBODIES,SCREEN ??? SED RATE, ERYTHROCYTE (ESR) ??? doxycycline hyclate 100 MG capsule 1. Fatigue. Check labs today 2. Arthralgias. Check sed rate. 3. Enlarged lymph nodes. Luna spot in office today. 4. URI. Doxycycline 100 mg two times daily x 10 days. JAZMYNE HONG NP 11/29/2019 10:43 PM DOWN ATTENDANT documented in this encounter Plan of Treatment Not on file documented as of this encounter Procedures Procedure Name Priority Date/Time Associated Diagnosis Comments HETEROPHILE ANTIBODIES,SCREEN Routine 11/27/2019 10:42 AM TURN DOWN ATTENDANT Fatigue, unspecified type Enlarged lymph nodes VENIPUNC ARM DRAW Routine 11/27/2019 10: 38 AM TURN DOWN ATTENDANT Fatigue, unspecified type Arthralgia, unspecified joint Enlarged lymph nodes documented in this encounter Results * HETEROPHILE ANTIBODIES,SCREEN (11/27/2019 10:42 AM TURN DOWN ATTENDANT) Pathologist [facility] HETEROPHILE ANTIBODIES NEGATIVE NEGATIVE [address] ([id number]), [place] Internal Control: VALID VALID [address] ([id number]), [place] 11/27/2019 10:4 2 AM TURN DOWN ATTENDANT us Jazmyne Hong LACE BURN OUT TENDER LABORATORY Final Resul t [address] ([id number] [address] [place] [address], [place] [phone] * (ABNORMAL) SED RATE, ERYTHROCYTE (ESR) (11/27/2019 10:20 AM TURN DOWN ATTENDANT) ESR 21(H) 0 - 20 MM/HR 11/27/2019 1:31 PM TURN DOWN ATTENDANT [facility] 11/27/2019 10:2 0 AM TURN DOWN ATTENDANT Jazmyne Hong NP LABORATORY Final Resul t Performing Organization Address [facility]/ZIP Co de Phone Number [facility] [address] [place] [address], [place] [phone] * RHEUMATOID FACTOR, QUANT (11/27/2019 10:20 AM TURN DOWN ATTENDANT) Pathologist [facility] RHEUMATOID FACTOR <10 <15 IU/ML 11/27/2019 8:02 PM TURN DOWN ATTENDANT [facility] 11/27/2019 10:2 0 AM TURN DOWN ATTENDANT Jazmyne Hong NP LABORATORY Final Resul t Performing Organization Address City/[facility]/ZIP Co de Phone Number [facility] [address] [place] [address], [place] [phone] * (ABNORMAL) CBC W/DIFF AUTOMATED (11/27/2019 10:20 AM TURN DOWN ATTENDANT) Pathologist [facility] WBC 5.7 4.4 - 11.0 x10'3/uL 11/27/2019 1:10 PM [facility] RBC 4.02(L) 4.50 - 5.10 x10'6/uL 11/27/2019 1:10 PM [facility] HGB 12.8 12.3 - 15.3 G/DL 11/27/2019 1:10 PM [facility] HCT 38.9 35.9 - 44.6 % 11/27/2019 1:10 PM [facility] MCV 96.8(H) 80.0 - 96.0 FL 11/27/2019 1:10 PM [facility] MCH 31.8(H) 25.3 - 30.9 PG 11/27/2019 1:10 PM [facility] MCHC 32.9 31.0 - 34.1 G/DL 11/27/2019 1:10 PM [facility] RDW 11.9(L) 12.4 - 15.1 % 11/27/2019 1:10 PM [facility] PLT 155 151 - 353 x10'3/uL 11/27/2019 1:10 PM [facility] MPV 11.7 9.6 - 12.0 FL 11/27/2019 1:10 PM [facility] RBC MORPHOLOGY NORMAL 11/27/2019 1:10 PM [facility] PLT MORPH. NORMAL 11/27/2019 1:10 PM [facility] WBC MORPHOLOGY NORMAL 11/27/2019 1:10 PM [facility] LYMPHOCYTES % 39.3 15.8 - 45.0 % 11/27/2019 1:10 PM [facility] NEUTROPHILS % 48.4 42.1 - 71.9 % 11/27/2019 1:10 PM [facility] MONOCYTES % 9.3 5.7 - 12.5 % 11/27/2019 1:10 PM [facility] EOSINOPHILS 2.1 0.0 - 5.6 % 11/27/2019 1:10 PM [facility] BASOPHILS 0.7 0.0 - 1.3 % 11/27/2019 1:10 PM [facility] ABS. NEUTROPHILS TOTAL 2.75 1.40 - 6.00 x10'3/uL 11/27/2019 1:10 PM [facility] IMMATURE GRANS % 0.2 0.0 - 0.5 % 11/27/2019 1:10 PM [facility] ABS. LYMPHOCYTES 2.23 0.80 - 4.70 x10'3/uL 11/27/2019 1:10 PM [facility] 11/27/2019 10:2 0 AM TURN DOWN ATTENDANT us Jazmyne Hong LACE BURN OUT TENDER LABORATORY Final Resul t [facility] [address] [place] [address], * COMPREHENSIVE METABOLIC PANEL (11/27/2019 10:20 AM TURN DOWN ATTENDANT) [facility] GLUCOSE 98 70 - 99 MG/DL 11/27/2019 1:34 PM [facility] BUN 8 7 - 18 MG/DL 11/27/2019 1:34 PM [facility] CREATININE S/P/B 0.73 0.55 - 1.02 MG/DL 11/27/2019 1:34 PM [facility] SODIUM S/P/B 139 136 - 145 MMOL/L 11/27/2019 1:34 PM [facility] POTASSIUM S/P/B 4.0 3.5 - 5.1 MMOL/L 11/27/2019 1:34 PM [facility] CHLORIDE S/P/B 104 100 - 108 MMOL/L 11/27/2019 1:34 PM [facility] CO2 23.7 21 - 32 MMOL/L 11/27/2019 1:34 PM [facility] CALCIUM S/P/B 9.3 8.5 - 10.1 MG/DL 11/27/2019 1:34 PM [facility] BILIRUBIN TOTAL S/P/B 0.6 0.2 - 1.2 MG/DL 11/27/2019 1:34 PM [facility] TOTAL PROTEIN S/P/B 7.3 6.4 - 8.2 G/DL 11/27/2019 1:34 PM [facility] ALBUMIN S/P/B 4.2 3.4 - 5.0 G/DL 11/27/2019 1:34 PM [facility] AST 15 15 - 37 U/L 11/27/2019 1:34 PM [facility] ALT 19 14 - 55 U/L 11/27/2019 1:34 PM [facility] ALKALINE PHOSPHATASE S/P/B 67 50 - 136 U/L 11/27/2019 1:34 PM [facility] ANION GAP 11.3 5 - 15 MMOL/L 11/27/2019 1:34 PM [facility] BUN CREATININE RATIO 11.0 6 - 26 11/27/2019 1:34 PM [facility] A/G RATIO 1.4 1.0 - 2.0 RATIO 11/27/2019 1:34 PM [facility] EGFR NON-AFR. AMER. >90 >90 ML/MIN/1.7 3 M2 11/27/2019 1:34 PM [facility] EGFR AFR. AMER. >90 >90 ML/MIN/1.7 3 M2 11/27/2019 1:34 PM [facility] Comment: NOTE: eGFR is not calculated for patients <18 years of age. This is an estimated GFR (CKD EPI) and should not be used for calculating drug doses. 11/27/2019 10:2 0 AM TURN DOWN ATTENDANT Jazmyne Hong LACE BURN OUT TENDER LABORATORY Final Resul t Performing Organization Address [facility] Co de Phone Number [facility] [address] [place] [address], [place] [phone] * (ABNORMAL) TSH W/REFLEX (11/27/2019 10:20 AM TURN DOWN ATTENDANT) TSH 0.010(L) 0.358 - 3.74 uIU/ML 11/27/2019 1:34 PM TURN DOWN ATTENDANT [facility] Comment: HIGH DOSES OF BIOTIN MAY INTERFERE WITH THIS TEST RESULT. CORRELATION TO CLINICAL HISTORY AND PRESENTATION RECOMMENDED. 11/27/2019 10:2 0 AM TURN DOWN ATTENDANT Jazmyne Hong LACE BURN OUT TENDER LABORATORY Final Resul t Performing Organization Address [facility] Co de Phone Number [facility] [address] [place] [address], [place] [phone] documented in this encounter Visit Diagnoses Diagnosis Fatigue, unspecified type- Primary Arthralgia, unspecified joint Enlarged lymph nodes Enlargement of lymph nodes Upper respiratory tract infection, unspecified type documented in this encounter Care Teams Edger Automatic Relationship Specialty Start Date End Date Jazmyne Hong NP PCP - General NURSE PRACTITIONER 12/15/18 08/31/21 documented as of this encounter
--- OUTSIDE RECORDS SUMMARY | 2024-10-22 20:35 | XMS_ITS | Encounter Summary ---
Author Organization [facility] Address [address] [place] [address]. [place], [place] [address] [place] [address] Care Team Providers Care Historical Society Director Name Role Phone Unavailable Primary Care Provider Unavailabl e Encounter Details Date Type Department Care Team (Late st Contact Info) Description 12/05/2016 Abstract [facility] Diagnostic Imaging [address] [place] [address] Mónica Crystal MD Social History Tobacco Use Types Packs/Day Years Used Date Smoking Tobacco: Never Assessed Comments Unknown Sex and Gender Information Value Date Recorded Sex Assigned at Female 12/15/2018 11:48 AM PATTERN GRADER CUTTER Legal Sex Female 8:12 PM CDT Gender Identity Female 12/15/2018 11:48 AM PATTERN GRADER CUTTER Sexual Orientation Straight 12/15/2018 11 :21 AM PATTERN GRADER CUTTER documented as of this encounter Plan of Treatment Not on file documented as of this encounter Visit Diagnoses Diagnosis Unspecified injury of left wrist, hand and finger(s), initial encounter documented in this encounter
--- OUTSIDE RECORDS SUMMARY | 2024-10-22 20:35 | XMS_ITS | Encounter Summary ---
Author Organization [facility] Address [address] [place] [address]. [place], [place] [address] [place] [address] Care Team Providers Care Bundle Wrapper Name Role Phone Unavailable Primary Care Provider Unavailabl e Encounter Details Date Type Department Care Team (Late st Contact Info) Description 12/05/2016 Abstract [facility] Family & Internal Medicine [facility] [address] [place] [address] Elaine Rudolph MD Social History Tobacco Use Types Packs/Day Years Used Date Smoking Tobacco: Never Assessed Comments Unknown Sex and Gender Information Value Date Recorded Sex Assigned at Female 12/15/2018 11:48 AM EMERGENCY ROOM TECHNICIAN Legal Sex Female 8:12 PM CDT Gender Identity Female 12/15/2018 11:48 AM EMERGENCY ROOM TECHNICIAN Sexual Orientation Straight 12/15/2018 11 :21 AM EMERGENCY ROOM TECHNICIAN documented as of this encounter Last Filed Vital Signs Vital Sign Reading Time Taken Comments Blood Pressure 110/64 12/05/2016 10:47 AM EMERGENCY ROOM TECHNICIAN Pulse 95 12/05/2016 10:47 AM EMERGENCY ROOM TECHNICIAN Temperature - - Respiratory Rate - - Oxygen Saturation - - Inhaled Oxygen Concentration - - Weight 75.3 kg (166 lb) 12/05/2016 10:47 AM EMERGENCY ROOM TECHNICIAN Height 167.6 cm (5' 6 ) 12/05/2016 10:47 AM EMERGENCY ROOM TECHNICIAN Body Mass Index 26.79 12/05/2016 10:47 AM EMERGENCY ROOM TECHNICIAN documented in this encounter Progress Notes * Elaine Rudolph MD - 12/05/2016 12:33 PM CST Message Attempted to call with results but number [...] reassess as she may need repeat xarys. Verified Results XR FINGER-3RD DIGIT (MIDLE) LT ( Routine ) [id number] 11:41AM Elaine Rudolph Test Name Result Flag Reference XR FINGER-3RD DIGIT (MIDLE) LT (Report) JAMIR BOWMAN ADMIT/SERVICE DATE: 12/05/16 ACCT: [id number] DISCHARGE DATE: : 1975 SEX: F ORD SITE: [facility] PT TYPE: REG CLI ORDERING MD: ELAINE RUDOLPH MD STUDY DATE REPORT # ORDER # EXT ORDER ID 12/05/16 [id number] PROC CODE: [id number] PROCEDURE DESCRIPTION: XR FINGER 3RD DIGIT MIDDLE LT IMAGING STUDIES: XR FINGER 3RD DIGIT MIDDLE LT DATE: 12/05/2016 11:23 AM COMPARISON STUDIES: NO PREVIOUS AVAILABLE. CLINICAL HISTORY: OTHER - INJURY TO MIDDLE FINGER . . FINDINGS AND IMPRESSION: 1. AVULSION FRACTURE OF THE VOLAR PLATE BASE OF THE THIRD DIGIT MID PHALANX. 2. NO RADIOPAQUE FOREIGN BODIES OR ABNORMAL SOFT TISSUE CALCIFICATIONS. . ELECTRONICALLY SIGNED BY CHI MICHELLE MD * Elaine Rudolph MD - 12/05/2016 10:30 AM CST Reason For Visit Reason For Visit: Acute Visit Chief Complaint c/o middle finger on left hand- injured. was messing around with her kids and finger popped back and instant pain. onset- last noc. History of Present Illness Finger Pain: The patient is being seen for an initial evaluation of finger pain. The history today is reported by the patient. The patient is right hand dominant. This condition is injury related. The injury involved the left middle finger. This occurred at home. The injury resulted from a fall. (was playing on the [employer] ) Symptoms: finger pain, finger tenderness, finger swelling, finger numbness, finger tingling, difficulty flexing the finger and difficulty extending the finger, but no localized drainage, no finger lesions and no finger vesicles. Associated symptoms: no fever, no chillsand no pain in other joints. Current treatment includes heat and ibuprofen. Review of Systems Constitutional: no fever and no chills. Cardiovascular: no chest pain. Respiratory: no shortness of breath. Gastrointestinal: no abdominal pain. Musculoskeletal: joint swelling, joint pain and joint stiffness. Neurological: no dizziness. Active Problems 1. Adjustment disorder with anxiety (309.24) (F43.22) Past Medical History 1. History of Contusion [...] (305.1) (F17.200) ?? Single Current Meds 1. Hydrocodone-Acetaminophen 5-325 MG Oral Tablet; TAKE 1 TABLET EVERY 6 HOURS NEEDED FOR PAIN; Therapy: [id number] to (Evaluate:33Hdy0381); Last Rx:[id number] Ordered Rx By: Noé Hansen; Dispense: 5 Days ; #:20 Tablet; Refill: 0; For: PMH: Contusion of shoulder, left, PMH: Left shoulder pain; BIANCA = N; Print Rx; Last Updated By: Gerri Sanchez; 12/05/2016 10:51:12 AM 2. Ibuprofen 200 MG Oral Tablet; take 3 tablets every 6 hours for pain; take with food; Therapy: 46Sdn1936 to (Last Rx:[id number]) Ordered Rx By: Noé Hansen; Dispense: 0 Days ; #:20 Tablet; Refill: 0; For: PMH: Left shoulder pain; BIANCA = N; Record 3. LORazepam 0.5 MG Oral Tablet; take 1/2 to 1 tab po BID prn anxiety; Therapy: 04Feb2015 to (Last Rx:29Aug2015) Ordered Rx By: Noé Hansen; Dispense: 0 Days ; #:60 Tablet; Refill: 0; For: Adjustment disorder with anxiety; BIANCA = N; Print Rx 4. Sertraline HCl - 50 MG Oral Tablet; TAKE 1 TABLET DAILY; Therapy: 04Feb2015 to (Evaluate:58Yvj9076) Requested for: 16Dwf2153; Last Rx:[id number] Ordered Rx By: Noé Hansen; Dispense: 90 Days ; #:90 Tablet; Refill: 2; For: Adjustment disorder with anxiety; BIANCA = N; Verified Transmission to [id number]; Last Updated By: Penny Eden; 09/18/2016 4:45:24 PM Allergies 1. Penicillins Recorded By: Marli Duke; 10/20/2012 10:26:31 AM Vitals Recorded: 91Bkj7820 10:47AM Temperature 98.8 F Heart Rate 95 Systolic 110 Diastolic 64 O2 Saturation 98 Height 5 ft 6 in Weight 166 lb BMI Calculated 26.79 BSA Calculated 1.85 Physical Exam Constitutional General appearance: No acute distress, well appearing and well nourished. Eyes Conjunctiva and lids: No swelling, erythema or discharge. Pulmonary Respiratory effort: No increased work of breathing or signs of respiratory distress. Auscultation of lungs: Clear to auscultation. Cardiovascular Auscultation of heart: Normal rate and rhythm, normal S1 and S2, without murmurs. Examination of extremities for edema and/or varicosities: Normal. Musculoskeletal Digits and nails: Abnormal. Lt middle finger swollen and bruised at PIP. limited ROM due to pain. Good cap refill. Appears in allignment. Neurologic Sensation: No sensory loss. Psychiatric Orientation to person, place, and time: Normal. Mood and affect: Normal. Assessment 1. BMI 26.0-26.9,adult (V85.22) (Z68.26) 2. Injury of middle finger, left, initial encounter (959.5) (S69.92XA) Injury to L middle finger. Will get x ray. She has finger splint at home and will start wearing it.con't ibuprofen for pain Plan Injury of middle finger, left, initial encounter 1. XR FINGER-3RD DIGIT (MIDLE) LT ( Routine ); Status:Active; Requested for:05Dec2016; Perform:[facility] Radiology; Due:04Jan2017;Ordered; For:Injury of middle finger, left, initial encounter; Ordered By:Elaine Rudolph; RTC as scheduled or sooner if no improvement Signatures Electronically signed by : Elaine Rudolph M.D.; Dec 05 2016 11:11AM EMERGENCY ROOM TECHNICIAN (Author) documented in this encounter Plan of Treatment Not on file documented as of this encounter Procedures Procedure Name Priority Date/Time Associated Diagnosis Comments XR THIRD FINGER LT 3V Routine 12/05/2016 11:41 AM EMERGENCY ROOM TECHNICIAN documented in this encounter Results * XR THIRD FINGER LT 3V (12/05/2016 11:41 AM EMERGENCY ROOM TECHNICIAN) Anatomical Region Laterality Modality Hand Radiographic Alexandra ging 12/05/2016 11:4 1 AM EMERGENCY ROOM TECHNICIAN 12/05/2016 11:41 AM EMERGENCY ROOM TECHNICIAN Narrative 12/05/2016 11:46 AM EMERGENCY ROOM TECHNICIAN JAMIR BOWMAN ? ADMIT/SERVICE DATE: 12/05/16 ?? ACCT: [id number] ?DISCHARGE DATE: ?? : 1975 ??SEX: F ?ORD SITE: [facility] ?? PT TYPE: REG CLI ? ORDERING MD: ELAINE RUDOLPH MD ? STUDY DATE ? REPORT # ?ORDER # ? EXT ORDER ID ?? 12/05/16 ? [id number] ? [id number] ?[id number] ? PROC CODE: ? [id number] ? PROCEDURE DESCRIPTION: ?? XR FINGER 3RD DIGIT MIDDLE LT ? IMAGING STUDIES: ??XR FINGER 3RD DIGIT MIDDLE LT ? DATE: ??12/05/2016 11:23 AM ? COMPARISON STUDIES: NO PREVIOUS AVAILABLE. ? CLINICAL HISTORY: ??OTHER - INJURY TO MIDDLE FINGER ??. ?. ? FINDINGS AND IMPRESSION: ? 1. ??AVULSION FRACTURE OF THE VOLAR PLATE BASE OF THE THIRD DIGIT MID PHALANX. ? 2. ??NO RADIOPAQUE FOREIGN BODIES OR ABNORMAL SOFT TISSUE CALCIFICATIONS. ?? . ? ELECTRONICALLY SIGNED BY CHI MICHELLE MD ? Procedure Note Elaine Rudolph MD - 08/29/2018 JAMIR BOWMAN ADMIT/SERVICE DATE:12/05/16 ACCT: [id number] DISCHARGE DATE: : 1975 SEX: F ORD SITE: [facility] PT TYPE: REG CLI ORDERING MD: ELVER RUDOLPH MD STUDY DATE REPORT # ORDER # EXT ORDER ID 12/05/16 [id number] PROC CODE: [id number] PROCEDURE DESCRIPTION: XR FINGER 3RD DIGIT MIDDLE LT IMAGING STUDIES: XR FINGER 3RD DIGIT MIDDLE LT DATE: 12/05/2016 11:23 AM COMPARISON STUDIES: NO PREVIOUS AVAILABLE. CLINICAL HISTORY: OTHER - INJURY TO MIDDLE FINGER . . FINDINGS AND IMPRESSION: 1. AVULSION FRACTURE OF THE VOLAR PLATE BASE OF THE THIRD DIGIT MIDPHALANX. 2. NO RADIOPAQUE FOREIGN BODIES OR ABNORMAL SOFT TISSUE CALCIFICATIONS.. ELECTRONICALLY SIGNED BY CHI MICHELLE MD us Elaine Rudolph MD GENERAL IMAGING Final Result documented in this encounter Visit Diagnoses Not on filedocumented in this encounter
--- OUTSIDE RECORDS SUMMARY | 2024-10-22 20:35 | XMS_ITS | Encounter Summary ---
Author Organization [facility] Address [address] [place] [address]. [place], [place] [address] [place] [address] Care Team Providers Care Flap Lining Binder Name Role Phone Unavailable Primary Care Provider Unavailabl e Encounter Details Date Type Department Care Team (Late st Contact Info) Description 12/28/2016 Abstract [facility] Diagnostic Imaging [address] [place] [address] Mónica Crystal MD Social History Tobacco Use Types Packs/Day Years Used Date Smoking Tobacco: Never Assessed Comments Unknown Sex and Gender Information Value Date Recorded Sex Assigned at Female 12/15/2018 11:48 AM SANITARY AIDE Legal Sex Female 8:12 PM CDT Gender Identity Female 12/15/2018 11:48 AM SANITARY AIDE Sexual Orientation Straight 12/15/2018 11 :21 AM SANITARY AIDE documented as of this encounter Plan of Treatment Not on file documented as of this encounter Visit Diagnoses Diagnosis Unspecified injury of left wrist, hand and finger(s), subsequent encounter documented in this encounter
--- OUTSIDE RECORDS SUMMARY | 2024-10-22 20:35 | XMS_ITS | Encounter Summary ---
Author Organization [facility] Address [address] [place] [address]. [place] [id number] [place] [address] Care Team Providers Care Strap Maker Name Role Phone Unavailable Primary Care Provider Unavailabl e Encounter Details Date Type Department Care Team (Latest Contact Info) Description 10/02/2017 Abstract [facility] Group Social History Tobacco Use Types Packs/Day Years Used Date Smoking Tobacco: Never Assessed Comments Unknown Sex and Gender Information Value Date Recorded Sex Assigned at Female 12/15/2018 11:48 AM LINE PRODUCTION COOK Legal Sex Female 8:12 PM CDT Gender Identity Female 12/15/2018 11:48 AM LINE PRODUCTION COOK Sexual Orientation Straight 12/15/2018 11 :21 AM LINE PRODUCTION COOK documented as of this encounter Plan of Treatment Not on file documented as of this encounter Visit Diagnoses Not on filedocumented in this encounter
--- OUTSIDE RECORDS SUMMARY | 2024-10-22 20:35 | XMS_ITS | Encounter Summary ---
Author Organization [facility] Address [address] [place] [address]. [place], [place] [address] [place] [address] Care Team Providers Care Kitchen Stewardess Name Role Phone Chantelle Hong WHEEL BUFFER Primary Care Provider Unav ailable Encounter Details Date Type Department Care Team (Late st Contact Info) Description 03/15/2021 Orders Only [facility] Family & Internal Medicine [facility] [address] [place] [address] Chantelle Hong, WHEEL BUFFER Social History Tobacco Use Types Packs/Day Years [...] Sex Assigned at Female 12/15/2018 11:48 AM FOREST ENGINEER Legal Sex Female 8:12 PM CDT Gender Identity Female 12/15/2018 11:48 AM FOREST ENGINEER Sexual Orientation Straight 12/15/2018 11 :21 AM FOREST ENGINEER 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 Not on file Not on file documented as of this encounter Progress Notes * Twila Bonilla MA - 03/15/2021 11:02 AM CDT See Rx request note for details. documented in this encounter Plan of Treatment Not on file documented as of this encounter Visit Diagnoses Diagnosis Anxiety and depression- Primary Dysthymic disorder documented in this encounter Additional Health Concerns Assessment Noted Time PHQ-9 Depression Total Score: 5 06/23/20 20 3:28 PM CDT documented as of this encounter Care Teams Kitchen Stewardess Relationship Specialty Start Date End Date Chantelle Hong NP PCP - General NURSE PRACTITIONER 12/15/18 08/31/21 documented as of this encounter
--- OUTSIDE RECORDS SUMMARY | 2024-10-22 20:35 | XMS_ITS | Encounter Summary ---
Author Organization [facility] Address [address] [place] [address]. [place], [place] [address] [place] [address] Care Team Providers Care Machine Pie Maker Name Role Phone Akilah Gardner TEST DEPARTMENT HELPER Primary Care Provider Unavailabl e Reason for Visit * Reason Onset Date Comments Follow Up Call 09/05/2021 Encounter Details Date Type Department Care Team (Late st Contact Info) Description 09/05/2021 Telephone [facility] Medical Group Family & Internal Medicine [address] [address] Akilah Gardner, TEST DEPARTMENT HELPER Follow Up Call Social History Tobacco Use Types Packs/Day Years [...] Sex Assigned at Female 12/15/2018 11:48 AM PAN WASHER Legal Sex Female 8:12 PM CDT Gender Identity Female 12/15/2018 11:48 AM PAN WASHER Sexual Orientation Straight 12/15/2018 11 :21 AM PAN WASHER Occupation Industry Job Start Date Job End [...] Progress Notes * Marian Lynn RN - 09/05/2021 2:43 PM CDT Refer to result note. * Annalisa Krishnan - 09/05/2021 12:00 PM CDT Pt returned your call please advise CB# [phone] documented in this encounter Plan of Treatment Not on file documented as of this encounter Visit Diagnoses Not on filedocumented in this encounter Additional Health Concerns Assessment Noted Time PHQ-9 Depression Total Score: 14 021 8:58 AM CDT documented as of this encounter Care Teams Machine Pie Maker Relationship Specialty Start Date End Date Akilah Gardner, OTONIEL PCP - General NURSE PRACTITIONER 09/01/21 08/02/22 documented as of this encounter
--- OUTSIDE RECORDS SUMMARY | 2024-10-22 20:35 | XMS_ITS | Encounter Summary ---
Author Organization [facility] Address [address] [place] [address]. [place], [place] [id number] [place] [id number] Care Team Providers Care Psychology Assistant Name Role Phone Jazmyne Pollock NP Primary Care Provider Unav ailable Reason for Visit * Reason Comments Shoulder Pain R shoulder pain sinc e Saturday night Encounter Details Date Type Department Care Team (Late st Contact Info) Description 07/01/2020 9:40 AM CDT Office Visit [facility] Family & Internal Medicine - [place] [address] [place] [address] Doris Olson, NIURKA [address] [facility] [address] [place] [address] Shoulder Pain (R shoulder pain since Saturday night) Social History Tobacco Use Types Packs/Day Years [...] Sex Assigned at Female 12/15/2018 11:48 AM DIGITAL DIRECTOR Legal Sex Female 8:12 PM CDT Gender Identity Female 12/15/2018 11:48 AM DIGITAL DIRECTOR Sexual Orientation Straight 12/15/2018 11 :21 AM DIGITAL DIRECTOR Occupation Industry Job Start Date Job End Date [employer] Not on file Not on file Not on file COVID-19 Exposure Response Date Recorded In the last month, have you been in contact with someone who was confirmed or suspected to have Coronavirus / COVID-19? No / Unsure 07/01/2020 9:34 AM CDT documented as of this encounter Last Filed Vital Signs Vital Sign Reading Time Taken Comments Blood Pressure 108/60 07/01/2020 9:44 AM CDT Pulse 95 07/01/2020 9:44 AM CDT Temperature 36.3 ??C (97.4 ??F) 07/01/2020 9:44 AM CD T Respiratory Rate 18 07/01/2020 9:44 AM CDT Oxygen Saturation 98% 07/01/2020 9:44 AM CDT Inhaled Oxygen Concentration - - Weight 73 kg (161 lb) 07/01/2020 9:44 AM CDT Height 167.6 cm (5' 6 ) 07/01/2020 9:44 AM CDT Body Mass Index 25.99 07/01/2020 9:44 AM CDT documented in this encounter Patient Instructions * Patient Instructions* NIURKA Valverde - 07/01/2020 9:40 AM CDT Images from the original note were not included. Patient Education Patient Education Shoulder Pain Discharge Instructions About this topic Your shoulder joint is made of 3 bones. These are the upper arm bone, the shoulder blade, and the collarbone. The shoulder is a ball and socket joint. The ball part of the joint is the top part of your upper arm bone. The socket part of your joint is a cup shaped indentation in your shoulder blade. Because of this, the shoulder can move in many ways. Strong bands of tissue called ligaments help hold the shoulder in place. Muscles and tendons also hold it in place. You can have pain in your shoulder for many reasons. It may be hard for the doctor to tell exactly where the pain is coming from. You can have pain in your muscles, bones, or joints. It can also happen in your tendons and ligaments which connect these together. Causes of this kind of pain may include: ?? Overuse or using muscles in the same way over and over ?? Trauma from falls, accidents, direct blows to muscles, and injuries such as bone breaks, sprains, or dislocations ?? Strain on your muscles from bad posture What care is needed at home? ?? Ask your doctor what you need to do when you go home. Make sure you ask questions if you do not understand what the doctor says. This way you will know what you need to do. ?? Rest. Allow your injury to heal before you do slow movements. ?? Place an ice pack or a bag of frozen peas wrapped in a towel over the painful part. Never put ice right on the skin. Do not leave the ice on more than 10 to 15 minutes at a time. ?? Prop your arm on pillows to help with swelling. ?? Your doctor may want you to use a sling, strap, or sleeve to keep your shoulder from moving. ?? Heat may be used but not right after an injury. Heat can make swelling worse. If your doctor tells you to use heat, put a heating pad on your shoulder for no more than 20 minutes at a time. Never go to sleep with a heating pad on as this can cause winkler. ?? Do range of motion exercises as your therapist or doctor teaches you to do. As your shoulder heals, you will be given more exercises to stretch and strengthen your shoulder. What follow-up care is needed? ?? Your doctor may ask you to make visits to the office to check on your progress. Be sure to keep all these visits. ?? Your doctor may send you to physical therapy or occupational therapy to help you regain use of your shoulder sooner. What drugs may be needed? The doctor may order drugs to: ?? Help with pain and swelling The doctor may give you a shot of an anti-inflammatory drug called a corticosteroid. This will helpwith swelling. Talk with your doctor about the risks of this shot. Will physical activity be limited? Your doctor may ask you to rest and limit your activity. Based on how bad your shoulder injury is, this could last for a few days to a number of weeks. What can be done to prevent this health problem? ?? Stay active and work out to keep your muscles strong and flexible. ?? Warm up slowly and stretch your muscles before you work out. Do not work out if you are overly tired. Take extra care if working out in cold weather. ?? Slowly increase the amount of time you work out. If you are using weights, slowly increase the weight to strengthen your muscles. ?? Wear protection when playing sports. ?? Take breaks often when doing things that use repeat movements. When do I need to call the doctor? ?? Pain or swelling gets worse ?? Hand feels cold or numb ?? You are not feeling better in 2 or 3 days or you are feeling worse [...] condition. ?? I can tell you what may help ease my pain. ?? I can tell you what I will do if I have more pain or swelling or my fingers are cool or blue. Where can I learn more? [employer] [employer] http://familydoctor.org/familydoctor/en/prevention-wellness/exercise-fitness/inj ury-rehab/shoulder-pain.html [place] [employer] http://orthoinfo.aaos.org/PDFs/S52897.pdf Last Reviewed Date 2018-05-19 Consumer Information Use and Disclaimer This information [...] is right for you. Copyright Copyright ?? 2020 [employer]. and its affiliates and/or licensors. All rights reserved. documented in this encounter Progress Notes * NIURKA Valverde - 07/01/2020 9:40 AM CDT Reason for Visit: Shoulder Pain (R shoulder pain since Saturday night) History of Present Illness: Frances Maguire is a 44-year-old female who sustained a right shoulder injury from likely overuse two days ago. 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 Delayed symptoms: delayed pain and delayed swelling. Symptoms have been gradual since that time. Prior history of related problems: no prior problems with this area in the past. ROS: Review of Systems Constitutional: Negative for appetite change, diaphoresis, fatigue and fever. HENT: Negative for congestion, sore throat and trouble swallowing. Eyes: Negative for photophobia and discharge. Respiratory: Negative for cough, shortness of breath and wheezing. Cardiovascular: Negative for chest pain, palpitations and leg swelling. Gastrointestinal: Negative for abdominal pain. Genitourinary: Negative for dysuria. Musculoskeletal: Negative for gait problem. Right shoulder pain and decreased ROM Skin: Negative for rash. Neurological: Negative for dizziness, syncope and weakness. Psychiatric/Behavioral: Negative for confusion. The patient is not nervous/anxious. Medications: Current Outpatient Medications: ??? acidiphilus probiotic [...] EXPECTORATE.DO NOT SWALLOW, Disp: , Rfl: ??? clindamycin 300 MG capsule, Take 1 capsule (300 mg total) by mouth 3 (three) times daily for 10days., Disp: 30 capsule, Rfl: 0 ??? HYDROcodone-acetaminophen 5-325 MG tablet, Take 1-2 tablets by mouth every 6 (six) hours as needed for Pain. Indications: Acute Pain < 7 Day Supply, Disp: 30 tablet, Rfl: 0 ??? MAGNESIUM ASPARTATE OR, Take [...] college, no degree Occupational History ??? 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 Cancer Mother breast ??? Cancer Father prostate ??? Heart Father ??? Anxiety Father Family Status Relation Name Status ??? Mother Alive ??? Father Alive Physical Exam Constitutional: She is oriented to person, place, and time. She appears well- developed and well-nourished. HENT: Head: Normocephalic. Neck: Normal range of motion. Cardiovascular: Normal rate. Pulmonary/Chest: Effort normal. No respiratory distress. Musculoskeletal: Appearance: in no apparent distress. Shoulder exam: soft tissue tenderness and swelling at the anterior at bicep insertion site. Decreased ROM d/t pain, unable to rotation, abduction. Neurological: She is alert and oriented to person, place, and time. Psychiatric: She has a normal mood and affect. Her behavior is normal. Nursing note and vitals reviewed. Filed Vitals: 07/01/20 0944 BP: 108/60 Pulse: 95 Resp: 18 Temp: 97.4 ??F (36.3 ??C) TempSrc: Temporal SpO2: 98% Weight: 73 kg (161 lb) Height: 5' 6 (1.676 m) Diagnoses/Impression: 1. Strain of right shoulder, initial encounter naproxen EC 500 MG tablet Recommendations and Plan: 1. Strain of right shoulder, initial encounter Has only take some tylenol. Will start NSAID BID for 2 weeks and cont to RICE. Start ROM exercises when improved symptom start. May consider muscle relaxer next week if needed. Consider PT if continued symptoms. Return to clinic with new, persistent, or worsening symptoms. Frances Maguire is in agreement to and verbalized understanding of treatment plan with no further questions at this time. - naproxen EC 500 MG tablet; Take 1 tablet (500 mg total) by mouth 2 (two) times daily with meals for 14 days. Dispense: 28 tablet; Refill: 0 Orders Placed This Encounter ??? naproxen EC 500 MG tablet NIURKA Valverde Referring Provider: No ref. provider found PCP: JAZMYNE POLLOCK NP documented in this encounter Plan of Treatment Not on file documented as of this encounter Visit Diagnoses Diagnosis Strain of right shoulder, initial encounter- Primary documented in this encounter Additional Health Concerns Assessment Noted Time PHQ-9 Depression Total Score: 5 06/23/20 20 3:28 PM CDT documented as of this encounter Care Teams Psychology Assistant Relationship Specialty Start Date End Date Jazmyne Pollock NP PCP - General NURSE PRACTITIONER 12/15/18 08/31/21 documented as of this encounter
--- OUTSIDE RECORDS SUMMARY | 2024-10-22 20:35 | XMS_ITS | Encounter Summary ---
Author Organization [facility] Address [address] [place] [address]. [place] [address] Care Team Providers Care Acquisition Marketing Manager Name Role Phone Jazmyne Hong SWITCHBOARD CLERK Primary Care Provider Unav ailable Reason for Visit * Reason Comments Eye Problem pt c/o eye infection , wears contacts too long, dust in air irritating eyes Encounter Details Date Type Department Care Team (Late st Contact Info) Description 08/28/2019 8:00 AM CDT Office Visit [facility] Medical Group Family & Internal Medicine [address] [phone] Jazmyne Hong NP Eye Problem (pt c/o eye infection, wears contacts too long, dust in air irritating eyes) Social History Tobacco Use Types Packs/Day Years [...] Sex Assigned at Female 12/15/2018 11:48 AM POLICE RADIO DISPATCHER Legal Sex Female 8:12 PM CDT Gender Identity Female 12/15/2018 11:48 AM POLICE RADIO DISPATCHER Sexual Orientation Straight 12/15/2018 11 :21 AM POLICE RADIO DISPATCHER documented as of this encounter Last Filed Vital Signs Vital Sign Reading Time Taken Comments Blood Pressure 124/66 08/28/2019 8:08 AM CDT Pulse 92 08/28/2019 8:08 AM CDT Temperature 36.6 ??C (97.9 ??F) 08/28/2019 8:08 AM CD T Respiratory Rate 16 08/28/2019 8:08 AM CDT Oxygen Saturation 97% 08/28/2019 8:08 AM CDT Inhaled Oxygen Concentration - - Weight 75 kg (165 lb 6.4 oz) 08/28/2019 8:08 AM CDT Height 167.6 cm (5' 6 ) 08/28/2019 8:08 AM CDT Body Mass Index 26.7 08/28/2019 8:08 AM CDT documented in this encounter Patient Instructions * Patient Instructions* Jazmyne Hong, OTONIEL - 08/28/2019 8:00 AM CDT Images from the original note were not included. Patient Education Patient Education Conjunctivitis (Noninfectious Pinkeye) Discharge Instructions About this topic Conjunctivitis is another name for pink eye. If allergies or something else is bothering your eye, you do not have an eye infection. This means it cannot spread from one person to others. Your conjunctiva is a thin layer that covers the white part of your eye. It also lines your eyelids. When you have conjunctivitis, this layer is swollen and red. What care is needed at home? ?? Ask your doctor what you need to do when you go home. Make sure you ask questions if you do not understand what the doctor says. ?? Always wash your hands before and after touching your eyes. ?? Put a cold compress on your eyes. ?? If you wear contact lenses, take them out. You may need to stop wearing them for a short while. Talk to your doctor about when you can wear contacts again. Wearing glasses is OK. ?? Protect your eyes from dirt and other harmful substances. Take care when you wash your face or hair. Keep soap and shampoo out of your eyes. ?? Shower or bathe daily to get any irritants off your skin before you go to bed. What follow-up care is needed? Your doctor may ask you to make visits to the office to check on your progress. Be sure to keep these visits. What drugs may be needed? The doctor may order drugs to: ?? Ease itching ?? Lower swelling ?? Keep your eyes moist When do I need to call the doctor? ?? Eye drainage ?? Blurry eyesight ?? Light hurts your eyes Teach Back: Helping You Understand The Teach [...] tell you how to care for my eye. ?? I can tell you what I will do if I have eye drainage or blurry eyesight. Where can I learn more? [employer] https://www.healthychildren.org/[place]/health-issues/conditions/eyes/Pages/Kersey Eye-Conjunctivitis.aspx NHS Choices https://www.nhs.uk/conditions/conjunctivitis/ Last Reviewed Date 2018-08-20 Consumer Information Use and Disclaimer This information [...] right for you. Copyright Copyright ?? 2019 [employer] and its affiliates and/or licensors. All rights reserved. documented in this encounter Progress Notes * Jazmyne Hong NP - 08/28/2019 8:00 AM CDT Images from the original note were not included. Office Progress Note Reason for Visit: Eye Problem (pt c/o eye infection, wears contacts too long, dust in air irritating eyes) History of Present Illness: Frances is a 43 year old female who presents today for irritation and redness to right eye. States she thought it was just allergies but it is not getting any better and it is just her right eye. 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 States she was recently diagnosed with some autoimmune disease by her BRAILLE TRANSLATOR recently and is supposed to have labs repeated in September; she will likely be referred to endocrine because she was told she is being testing for Yanelis's. Red Eye(s) This is a recurrent problem. The current episode started in the past 7 days. The problem occurs constantly. The problem has been gradually worsening. Associated symptoms include congestion. Pertinentnegatives include no abdominal pain, anorexia, arthralgias, change in bowel habit, chest pain, chills, coughing, diaphoresis, fatigue, fever, headaches, joint swelling, myalgias, nausea, neck pain, numbness, rash, sore throat, swollen glands, urinary symptoms, vertigo, visual change, vomiting or weakness. Treatments tried: warm compress. The treatment provided no relief. Health Maintenance: Influenza is recommended, but patient refused at this time. ROS: Review of Systems Constitutional: Negative. Negative for chills, diaphoresis, fatigue and fever. HENT: Positive for congestion. Negative for hearing loss, sinus pain, sore throat and tinnitus. Eyes: Positive for blurred vision, discharge and redness. Negative for double vision, photophobia and pain. Respiratory: Negative. Negative for cough, sputum production and shortness of breath. Cardiovascular: Negative. Negative for chest pain. Gastrointestinal: Negative. Negative for abdominal pain, anorexia, change in bowel habit, constipation, diarrhea, nausea and vomiting. Genitourinary: Negative. Musculoskeletal: Negative. Negative for arthralgias, joint swelling, myalgias and neck pain. Skin: Negative. Negative for rash. Neurological: Negative. Negative for vertigo, weakness, numbness and headaches. Endo/Heme/Allergies: Bruises/bleeds easily. Medications: Current Outpatient Medications: ??? acidiphilus probiotic tablet, Take 2 tablets by mouth daily., Disp: , Rfl: ??? acyclovir 400 MG tablet, Take 1 tablet (400 mg total) by mouth daily., Disp: 90 tablet, Rfl: 2 ??? Azelastine HCl 0.05 % Solution, Place 1 drop into both eyes daily., Disp: 1 Bottle, Rfl: 6 ??? MAGNESIUM ASPARTATE OR, Take 400 mg by mouth daily., Disp: , Rfl: ??? multi vitamin/minerals tablet, Take 1 tablet by mouth 2 (two) times daily. , Disp: , Rfl: ??? sertraline 50 MG tablet, Take 1 tablet (50 mg total) by mouth daily., Disp: 90 tablet, Rfl: 2 ??? tobramycin-dexamethasone ophthalmic solution, 1 drop right eye every hour while awake x 1 day; then every 2 hours while awake x 1 day; then every 4 hours x 2 days; then every 6 hours x 3 days then stop., Disp: 5 mL, Rfl: 0 Allergies: Allergies Allergen Reactions ??? Penicillins Unknown [...] Some college, no degree Occupational History ??? Not on file Social Needs ??? Financial resource strain: Not [...] Drug use: No ??? Sexual activity: No Lifestyle ??? Physical activity: Days per week: Not on file Minutes per session: Not on file ??? Stress: Not on file Relationships ??? Social connections: Talks on phone: Not on file Gets together: Not on file Attends samaritan service: Not on file Active member of [...] extermity braces/slings Not Asked ??? Self Care Yes Social History Narrative Lives at home with her son Family History: Family History Problem Relation Name Age of Onset ??? Cancer Mother breast ??? Cancer Father prostate ??? Heart Father ??? Anxiety Father PE: Physical Exam Constitutional: She is oriented to person, place, and time. She appears well- developed and well-nourished. No distress. HENT: Head: Normocephalic and atraumatic. Eyes: EOM are normal. Pupils are equal, round, and reactive to light. Right eye exhibits discharge.Left eye exhibits no discharge. Right conjunctiva is injected. Neck: Normal range of motion. Pulmonary/Chest: Effort normal. No respiratory distress. Musculoskeletal: Normal range of motion. Neurological: She is alert and oriented to person, place, and time. She has normal strength. Skin: Skin is warm, dry and intact. Psychiatric: She has a normal mood and affect. Her speech is normal and behavior is normal. Thoughtcontent normal. Nursing note and vitals reviewed. Filed Vitals: 08/28/19 0808 BP: 124/66 Pulse: 92 Resp: 16 Temp: 97.9 ??F (36.6 ??C) TempSrc: Oral SpO2: 97% Weight: 75 kg (165 lb 6.4 oz) Height: 5' 6 (1.676 m) Diagnoses/Impression: 1. Conjunctivitis of right eye, unspecified conjunctivitis type tobramycin- dexamethasone ophthalmicsolution 2. Allergic conjunctivitis of both eyes Azelastine HCl 0.05 % Solution Recommendations and Plan: Orders Placed This Encounter ??? MAGNESIUM ASPARTATE OR ??? tobramycin-dexamethasone ophthalmic solution ??? Azelastine HCl 0.05 % Solution 1. Conjunctivitis right eye. Start tobradex as directed. Continue using warm compress to right eye. 2. Allergic conjunctivitis both eyes. Start azelastine drops daily. Follow up if no improvement. JAZMYNE HONG NP 08/28/2019 9:10 AM documented in this encounter Plan of Treatment Not on file documented as of this encounter Visit Diagnoses Diagnosis Conjunctivitis of right eye, unspecified conjunctivitis type- Primary Allergic conjunctivitis of both eyes Other chronic allergic conjunctivitis documented in this encounter Care Teams Acquisition Marketing Manager Relationship Specialty Start Date End Date Jazmyne Hong NP PCP - General NURSE PRACTITIONER 12/15/18 08/31/21 documented as of this encounter
--- OUTSIDE RECORDS SUMMARY | 2024-10-22 20:35 | XMS_ITS | Encounter Summary ---
Author Organization [facility] Address [address] [place] [address]. [place], [place] [id number] [place] [id number] Care Team Providers Care Flat Surfacer Jewel Name Role Phone Chantelle Hong FLEXOGRAPHIC PRINTING PRESS OPERATOR Primary Care Provider Unav ailable Encounter Details Date Type Department Care Team (Latest Contact Info) Description 07/07/2020 Travel Social History Tobacco Use Types Packs/Day [...] Sex Assigned at Female 12/15/2018 11:48 AM FISH HATCHERY LABORER Legal Sex Female 8:12 PM CDT Gender Identity Female 12/15/2018 11:48 AM FISH HATCHERY LABORER Sexual Orientation Straight 12/15/2018 11 :21 AM FISH HATCHERY LABORER Occupation Industry Job Start Date Job End Date [employer] Not on file Not on [...] documented as of this encounter Care Teams Flat Surfacer Jewel Relationship Specialty Start Date End Date Chnatelle Hong NP PCP - General NURSE PRACTITIONER 12/15/18 08/31/21 documented as of this encounter
--- OUTSIDE RECORDS SUMMARY | 2024-10-22 20:35 | XMS_ITS | Encounter Summary ---
Author Organization [facility] Address [address] [place] [address]. [place] [id number] [place] [address] Care Team Providers Care Project Controls Scheduler Name Role Phone Unavailable Primary Care Provider Unavailabl e Encounter Details Date Type Department Care Team (Latest Contact Info) Description 05/01/2017 Abstract [facility] Group Noé Hansen, PICK OUT HAND Social History Tobacco Use Types Packs/Day Years Used Date Smoking Tobacco: Never Assessed Comments Unknown Sex and Gender Information Value Date Recorded Sex Assigned at Female 12/15/2018 11:48 AM MANAGER WIRELESS Legal Sex Female 8:12 PM CDT Gender Identity Female 12/15/2018 11:48 AM MANAGER WIRELESS Sexual Orientation Straight 12/15/2018 11 :21 AM MANAGER WIRELESS documented as of this encounter Plan of Treatment Not on file documented as of this encounter Visit Diagnoses Not on filedocumented in this encounter
--- OUTSIDE RECORDS SUMMARY | 2024-10-22 20:35 | XMS_ITS | Encounter Summary ---
Author Organization [facility] Address [address] [place] [address]. [place], [place] [id number] [place] [address] Care Team Providers Care Parts Lister Name Role Phone Chantelle Hong NP Primary Care Provider Unav ailable Reason for Visit * Reason Onset Date Comments Medication 12/04/2019 Encounter Details Date Type Department Care Team (Late st Contact Info) Description 12/04/2019 Telephone [facility] Medical Group Family & Internal Medicine [address] [address] Chnatelle Hong, LEAF TINNER Medication Social History Tobacco Use Types Packs/Day Years [...] Sex Assigned at Female 12/15/2018 11:48 AM SOLAR PROJECT MANAGER Legal Sex Female 8:12 PM CDT Gender Identity Female 12/15/2018 11:48 AM SOLAR PROJECT MANAGER Sexual Orientation Straight 12/15/2018 11 :21 AM SOLAR PROJECT MANAGER Occupation Industry Job Start Date Job End Date Formerly [employer] Not on file Not on file Not on file documented as of this encounter Progress Notes * Marina Olsen LPN - 12/04/2019 3:30 PM CST Left detailed message for patient on vm. R PROJECT MANAGER * Chantelle Hong NP - 12/04/2019 2:33 PM CST I sent into [facility] I am still waiting on some of her labs to come back; recommend she try zyrtec or claritin two times daily if she is not already. Thanks. delmar R PROJECT MANAGER * Alicia Murillo RN - 12/04/2019 10:05 AM CST Please advise. R PROJECT MANAGER * Aidee Wu LPN - 12/04/2019 8:55 AM CST Pt called would like a refill of tobramycin dexamethasone ophthalmic for right eye she had order inoct from miguelangel and was in office last week see miguelangel increase pain in eye reddness ear popping eye burning [facility] [facility] [place] [phone] R PROJECT MANAGER documented in this encounter Plan of Treatment Not on file documented as of this encounter Visit Diagnoses Not on filedocumented in this encounter Care Teams Parts Lister Relationship Specialty Start Date End Date Chantelle Hong NP PCP - General NURSE PRACTITIONER 12/15/18 08/31/21 documented as of this encounter
--- OUTSIDE RECORDS SUMMARY | 2024-10-22 20:35 | XMS_ITS | Encounter Summary ---
Author Organization [facility] Address [address] [place] [address]. [place], [place] [address] [place] [address] Care Team Providers Care Poker Machine Attendant Name Role Phone Jazmyne Hong TREE KILLER Primary Care Provider Unav ailable Reason for Visit * Reason Comments Fever 100 degree fever, wi th chills, sweating at night, sob on exertion, runny nose on and off, headache, fatigue, nausea, diarrhea Encounter Details Date Type Department Care Team (Late st Contact Info) Description 07/25/2020 11:00 AM CDT Telemedicine [facility] Medical Group Family & Internal Medicine [address] [phone] Jazmyne Hong NP Fever (100 degree fever, with chills, sweating at night, sob on exertion, runny nose on and off, headache, fatigue, nausea, diarrhea) Social History Tobacco Use Types Packs/Day Years [...] Assigned at Female 12/15/2018 11:48 AM CLINICAL OPERATIONS SPECIALIST Legal Sex Female 8:12 PM CDT Gender Identity Female 12/15/2018 11:48 AM CLINICAL OPERATIONS SPECIALIST Sexual Orientation Straight 12/15/2018 11 :21 AM CLINICAL OPERATIONS SPECIALIST Occupation Industry Job Start Date Job [...] Sign Reading Time Taken Comments Blood Pressure - - Pulse - - Temperature 37.6 ??C (99.6 ??F) 07/25/2020 10:05 AM C DT Respiratory Rate - - Oxygen Saturation - - Inhaled Oxygen Concentration - - Weight - - Height - - Body Mass Index - - documented in this encounter Progress Notes * Jazmyne Hong NP - 07/25/2020 11:00 AM CDT Images from the original note were not included. Office Progress Note Reason for Visit: Fever (100 degree fever, with chills, sweating at night, sob on exertion, runny nose on and off, headache, fatigue, nausea, diarrhea) I introduced and identified myself, received verbal consent from the patient to proceed with this video visit and made the patient aware that the same confidentiality and public information relations manager practices apply. The patient joined the video visit from Home. I completed the virtual visit from Office. The following clinical staff helped with this visit MA: Twila Bonilla. Total Time Spent inMinutes: 10 History of Present Illness: Frances is a 44 year old female who presents today via video visit; she was tested for COVID yesterday at [facility] in [facility] and is needing a note for work. Symptoms started Saturday night when she woke up sweating with chills. Slept all day Saturday and Saturday. She states she has been running fever of 100 consistently and she has been taking tylenol and ibuprofen as needed for body aches. She states she has felt short of breath and has had headaches off an on as well as nausea and diarrhea. She talked with her employer and they recommended she call her provider for a note for work. Fever This is a new problem. The current episode started in the past 7 days. The problem occurs constantly. The problem has been gradually worsening. The maximum temperature noted was 100 to 100.9 F. The temperature was taken using an oral thermometer. Associated symptoms include abdominal pain, congestion, coughing, diarrhea, headaches, muscle aches, nausea, sleepiness and wheezing. Pertinent negatives include no chest pain, ear pain, rash, sore throat, urinary pain or vomiting. She has tried acetaminophen, NSAIDs and fluids for the symptoms. The treatment provided mild relief. URI/ENT Symptoms This is a new problem. The current episode started in the past 7 days. The problem occurs constantly. The problem has been gradually worsening. Associated symptoms include abdominal pain, anorexia, chills, congestion, coughing, diaphoresis, fatigue, a fever, headaches, myalgias and nausea. Pertinent negatives include no arthralgias, change in bowel habit, chest pain, joint swelling, neck pain, numbness, rash, sore throat, swollen glands, urinary symptoms, vertigo, visual change, vomiting or weakness. Nothing aggravates the symptoms. She has tried acetaminophen, NSAIDs, rest, sleep and drinking for the symptoms. The treatment provided mild relief. ROS: Review of Systems Constitutional: Positive for chills, diaphoresis, fatigue, fever and malaise/fatigue. HENT: Positive for congestion. Negative for ear pain, sinus pain and sore throat. Eyes: Negative. Respiratory: Positive for cough, shortness of breath and wheezing. Negative for sputum production. Cardiovascular: Negative. Negative for chest pain and leg swelling. Gastrointestinal: Positive for abdominal pain, anorexia, diarrhea and nausea. Negative for change in bowel habit and vomiting. Genitourinary: Negative. Negative for dysuria and flank pain. Musculoskeletal: Positive for myalgias. Negative for arthralgias, joint swelling and neck pain. Skin: Negative. Negative for itching and rash. Neurological: Positive for headaches. Negative for vertigo, weakness and numbness. Endo/Heme/Allergies: Negative. Medications: Current Outpatient Medications: ??? [...] ), Disp: 1 Bottle, Rfl: 6 ??? MAGNESIUM ASPARTATE OR, Take 400 mg by mouth daily., Disp: , Rfl: ??? multi vitamin/minerals tablet, Take 1 tablet by mouth 2 (two) times daily. , Disp: , Rfl: ??? sertraline 50 MG tablet, Take 1.5 tablets (75 mg total) by mouth daily., Disp: 135 tablet, Rfl:2 Allergies: Allergies Allergen Reactions ??? Penicillins Anaphylaxis [...] college, no degree Occupational History ??? Occupation: [employer] Social Needs ??? Financial resource strain: Not [...] file Gets together: Not on file Attends jehovah's witness service: Not on file Active member of [...] time. She appears well- developed and well-nourished. Pulmonary/Chest: Effort normal. Neurological: She is alert and oriented to person, place, and time. Psychiatric: She has a normal mood and affect. Her speech is normal and behavior is normal. Thoughtcontent normal. Nursing note and vitals reviewed. Physical exam limited due to video visit. Filed Vitals: 07/25/20 1005 Temp: 99.6 ??F (37.6 ??C) TempSrc: Tympanic 1. Fever, unspecified fever cause - Continue tylenol and ibuprofen 2. Dyspnea, unspecified type - Rest and increase fluids. 3. Diarrhea, unspecified type - Recommend push fluids JAZMYNE HONG NP 07/25/2020 10:13 AM documented in this encounter Plan of Treatment Not on file documented as of this encounter Visit Diagnoses Diagnosis Fever, unspecified fever cause- Primary Dyspnea, unspecified type Diarrhea, unspecified type documented in this encounter Additional Health Concerns Assessment Noted Time PHQ-9 Depression Total Score: 5 06/23/20 20 3:28 PM CDT documented as of this encounter Care Teams Poker Machine Attendant Relationship Specialty Start Date End Date Jazmyne Hong NP PCP - General NURSE PRACTITIONER 12/15/18 08/31/21 documented as of this encounter
--- OUTSIDE RECORDS SUMMARY | 2024-10-22 20:35 | XMS_ITS | Encounter Summary ---
Author Organization [facility] Address [address] [place] [address]. [place] [id number] [place] [address] Care Team Providers Care Shift Engineer Name Role Phone Unavailable Primary Care Provider Unavailabl e Encounter Details Date Type Department Care Team (Latest Contact Info) Description 07/11/2017 Abstract [facility] Medical Group Social History Tobacco Use Types Packs/Day Years Used Date Smoking Tobacco: Never Assessed Comments Unknown Sex and Gender Information Value Date Recorded Sex Assigned at Female 12/15/2018 11:48 AM DRYING RACK CHANGER Legal Sex Female 8:12 PM CDT Gender Identity Female 12/15/2018 11:48 AM DRYING RACK CHANGER Sexual Orientation Straight 12/15/2018 11 :21 AM DRYING RACK CHANGER documented as of this encounter Plan of Treatment Not on file documented as of this encounter Visit Diagnoses Not on filedocumented in this encounter
--- OUTSIDE RECORDS SUMMARY | 2024-10-22 20:35 | XMS_ITS | Encounter Summary ---
Author Organization [facility] Address [address] [place] [address]. [place], [place] [address] [place] [address] Care Team Providers Care Eco Industrial Development Consultant Name Role Phone Unavailable Primary Care Provider Unavailabl e Encounter Details Date Type Department Care Team (Latest Contact Info) Description 01/01/2017 Abstract [facility] Medical Group Social History Tobacco Use Types Packs/Day Years Used Date Smoking Tobacco: Never Assessed Comments Unknown Sex and Gender Information Value Date Recorded Sex Assigned at Female 12/15/2018 11:48 AM PRIVATE DUTY NURSE Legal Sex Female 8:12 PM CDT Gender Identity Female 12/15/2018 11:48 AM PRIVATE DUTY NURSE Sexual Orientation Straight 12/15/2018 11 :21 AM PRIVATE DUTY NURSE documented as of this encounter Progress Notes * Generic Conversion MD Elle - 01/01/2017 11:40 AM CST Message Recorded as Task Date: 12/31/2016 08:04 AM, Created By: Mónica Crystal Task Name: Call Patient with results Assigned To: Mónica Crystal Regarding Patient: Frances Maguire, Status: In Progress Comment: Mónica Crystal - 31 Dec 2016 8:04 AM Patient Please let Frances know her X ray shows things are starting to heal. Con't with estrada tapping finger for another 3 weeks. Zarina Dougherty - 31 Dec 2016 1:22 PM TASK EDITED 12/31 lmtcb/ xray results. Zarina Dougherty - 01 Jan 2017 11:33 AM TASK EDITED 01/01 lmtcb/ xray results. Goldie Lemus - 01 Jan 2017 11:39 AM TASK EDITED Pt informed of results and v/u. Signatures Electronically signed by : Goldie Lemus, ; Jan 01 2017 11:40AM PRIVATE DUTY NURSE (Author) documented in this encounter Plan of Treatment Not on file documented as of this encounter Visit Diagnoses Not on filedocumented in this encounter
--- OUTSIDE RECORDS SUMMARY | 2024-10-22 20:35 | XMS_ITS | Encounter Summary ---
Author Organization [facility] Address [address] [place] [address]. [place], [place] [phone] [place] [address] Care Team Providers Care Chicken And Fish Cleaner Name Role Phone Jazmyne Hong CABINET FINISHER Primary Care Provider Unav ailable Reason for Visit * Reason Comments Follow Up 6 month F/U Encounter Details Date Type Department Care Team (Late st Contact Info) Description 07/02/2019 3:00 PM CDT Office Visit [facility] Medical Group Family & Internal Medicine [address] [phone] Jazmyne Hong NP Follow Up (6 month F/U) Social History Tobacco Use Types Packs/Day Years Used Date Smoking Tobacco: Every Day Cigarettes Smokeless Tobacco: Never Alcohol Use Standard Drinks/Week Comments Yes 0 [...] Sex Assigned at Female 12/15/2018 11:48 AM SURFACE ROOM SHOP OPTICIAN Legal Sex Female 8:12 PM CDT Gender Identity Female 12/15/2018 11:48 AM SURFACE ROOM SHOP OPTICIAN Sexual Orientation Straight 12/15/2018 11 :21 AM SURFACE ROOM SHOP OPTICIAN Occupation Industry Job Start Date Job End Date [employer] Not on file Not on file Not on file documented as of this encounter Last Filed Vital Signs Vital Sign Reading Time Taken Comments Blood Pressure 128/52 07/02/2019 2:59 PM CDT Pulse 83 07/02/2019 2:59 PM CDT Temperature 36.7 ??C (98.1 ??F) 07/02/2019 2:59 PM CD T Respiratory Rate 16 07/02/2019 2:59 PM CDT Oxygen Saturation 98% 07/02/2019 2:59 PM CDT Inhaled Oxygen Concentration - - Weight 75.9 kg (167 lb 6.4 oz) 07/02/2019 2:59 P M CDT Height 167.6 cm (5' 6 ) 07/02/2019 2:59 PM CDT Body Mass Index 27.02 07/02/2019 2:59 PM CDT documented in this encounter Progress Notes * Jazmyne Hong NP - 07/02/2019 3:00 PM CDT Images from the original note were not included. Office Progress Note Reason for Visit: Follow Up (6 month F/U) History of Present Illness: Frances is a 43 year old female who presents today for medication refills and follow up. States she is doing well on her current medications and voices no complaints. Anxiety Presents for follow-up visit. Patient reports no chest pain, compulsions, confusion, decreased concentration, depressed mood, dizziness, dry mouth, excessive worry, feeling of choking, hyperventilation, impotence, insomnia, irritability, malaise, muscle tension, nausea, nervous/anxious behavior, obs essions, palpitations, panic, restlessness, shortness of breath or suicidal ideas. Symptoms occur occasionally. The severity of symptoms is mild. The quality of sleep is good. Nighttime awakenings: none. Compliance with medications is 76-100%. Health Maintenance: Cholesterol screening is recommended, but patient refused at this time. Mammogram is up to date. Pap and pelvic is up to date. Reinforced other healthy lifestyle decisions with routine exercise and watching diet. ROS: Review of Systems Constitutional: Negative. Negative for irritability, malaise/fatigue and weight loss. HENT: Negative. Negative for congestion and sinus pain. Eyes: Negative. Negative for discharge and redness. Respiratory: Negative. Negative for cough and shortness of breath. Cardiovascular: Negative. Negative for chest pain, palpitations and leg swelling. Gastrointestinal: Negative. Negative for nausea. Genitourinary: Negative. Negative for impotence. Musculoskeletal: Negative. Skin: Negative. Negative for itching and rash. Neurological: Negative. Negative for dizziness. Endo/Heme/Allergies: Negative. Psychiatric/Behavioral: Negative. Negative for confusion, decreased concentration, depression, hallucinations, memory loss, substance abuse and suicidal ideas. The patient is not nervous/anxious and does not have insomnia. Medications: Current Outpatient Medications: ??? acidiphilus probiotic tablet, Take 2 tablets by mouth daily., Disp: , Rfl: ??? acyclovir 400 MG tablet, Take 1 tablet (400 mg total) by mouth daily., Disp: 90 tablet, Rfl: 2 ??? multi vitamin/minerals tablet, Take 1 tablet [...] college, no degree Occupational History ??? Occupation: [employer] Social Needs ??? Financial resource strain: Not [...] file Gets together: Not on file Attends shinto service: Not on file Active member of [...] Neck: Normal range of motion. Neck supple. Cardiovascular: Normal rate, regular rhythm, normal heart sounds and intact distal pulses. Pulmonary/Chest: Effort normal and breath sounds normal. No respiratory distress. Abdominal: Soft. Bowel sounds are normal. Musculoskeletal: Normal range of motion. Neurological: She is alert and oriented to person, place, and time. She has normal strength. No sensory deficit. Skin: Skin is warm and dry. Psychiatric: She has a normal mood and affect. Her speech is normal and behavior is normal. Thoughtcontent normal. Nursing note and vitals reviewed. Filed Vitals: 07/02/19 1459 BP: 128/52 Pulse: 83 Resp: 16 Temp: 98.1 ??F (36.7 ??C) TempSrc: Oral SpO2: 98% Weight: 75.9 kg (167 lb 6.4 oz) Height: 5' 6 (1.676 m) PHQ-9: Over the last two weeks, how often have you been bothered by any of the following problems? 07/02/2019 LITTLE INTEREST OR PLEASURE IN DOING THINGS 0-Not at All FEELING DOWN, DEPRESSSED,OR HOPELESS 0-Not at All PHQ2 DEPRESSION TOTAL SCORE 0 Diagnoses/Impression: 1. Herpes simplex acyclovir 400 MG tablet 2. Anxiety and depression sertraline 50 MG tablet Recommendations and Plan: Orders Placed This Encounter ??? DISCONTD: acyclovir 400 MG tablet ??? sertraline 50 MG tablet ??? acyclovir 400 MG tablet 1. Anxiety and depression. Continue sertraline 50 mg daily. 2. Herpes simplex, continue acyclovir 400 mg daily. Follow up in 6-9 months. JAZMYNE HONG NP 07/02/2019 4:01 PM documented in this encounter Plan of Treatment Not on file documented as of this encounter Visit Diagnoses Diagnosis Herpes simplex- Primary Herpes simplex without mention of complication Anxiety and depression Dysthymic disorder documented in this encounter Care Teams Chicken And Fish Cleaner Relationship Specialty Start Date End Date Jazmyne Hong NP PCP - General NURSE PRACTITIONER 12/15/18 08/31/21 documented as of this encounter
--- OUTSIDE RECORDS SUMMARY | 2024-10-22 20:36 | XMS_ITS | Encounter Summary ---
Author Organization [facility] Address [address] [place] [address]. [place], [place] [address] [place] [address] Care Team Providers Care [place] Attorney Name Role Phone Unavailable Primary Care Provider Unavailabl e Encounter Details Date Type Department Care Team (Late st Contact Info) Description 11/05/2000 Abstract [facility] [address] [place] [address] , Generic Conversion, Social History Tobacco Use Types Packs/Day Years Used Date Smoking Tobacco: Never Assessed Comments Unknown Sex and Gender Information Value Date Recorded Sex Assigned at Female 12/15/2018 11:48 AM GRAPHIC PRODUCTION ARTIST Legal Sex Female 8:12 PM CDT Gender Identity Female 12/15/2018 11:48 AM GRAPHIC PRODUCTION ARTIST Sexual Orientation Straight 12/15/2018 11 :21 AM GRAPHIC PRODUCTION ARTIST documented as of this encounter Plan of Treatment Not on file documented as of this encounter Visit Diagnoses Not on filedocumented in this encounter
--- OUTSIDE RECORDS SUMMARY | 2024-10-22 20:36 | XMS_ITS | Encounter Summary ---
Author Organization [facility] Address [address] [place] [address]. [place], [place] [address] [place] [address] Care Team Providers Care Cloth Layer Name Role Phone Unavailable Primary Care Provider Unavailabl e Encounter Details Date Type Department Care Team (Late st Contact Info) Description 10/01/2011 Abstract [facility] [address] [place] [address] Staci Pelletier MD Social History Tobacco Use Types Packs/Day Years Used Date Smoking Tobacco: Never Assessed Comments Unknown Sex and Gender Information Value Date Recorded Sex Assigned at Female 12/15/2018 11:48 AM UNIVERSAL BRANCH CONSULTANT Legal Sex Female 8:12 PM CDT Gender Identity Female 12/15/2018 11:48 AM UNIVERSAL BRANCH CONSULTANT Sexual Orientation Straight 12/15/2018 11 :21 AM UNIVERSAL BRANCH CONSULTANT documented as of this encounter Plan of Treatment Not on file documented as of this encounter Visit Diagnoses Diagnosis Leukorrhea Leukorrhea, not specified as infective documented in this encounter
--- OUTSIDE RECORDS SUMMARY | 2024-10-22 20:36 | XMS_ITS | Encounter Summary ---
Author Organization [facility] Address [address] [place] [address]. [place], [place] [address] [place] [address] Care Team Providers Care Director Corporate Compliance Name Role Phone Unavailable Primary Care Provider Unavailabl e Encounter Details Date Type Department Care Team (Late st Contact Info) Description 07/06/2003 Abstract [facility] [address] [place] [address] , Generic Conversion, Social History Tobacco Use Types Packs/Day Years Used Date Smoking Tobacco: Never Assessed Comments Unknown Sex and Gender Information Value Date Recorded Sex Assigned at Female 12/15/2018 11:48 AM SUPERVISOR BUFFING AND PASTING Legal Sex Female 8:12 PM CDT Gender Identity Female 12/15/2018 11:48 AM SUPERVISOR BUFFING AND PASTING Sexual Orientation Straight 12/15/2018 11 :21 AM SUPERVISOR BUFFING AND PASTING documented as of this encounter Plan of Treatment Not on file documented as of this encounter Visit Diagnoses Not on filedocumented in this encounter
--- OUTSIDE RECORDS SUMMARY | 2024-10-22 20:36 | XMS_ITS | Encounter Summary ---
Author Organization [facility] Address [address] [place] [address]. [place], [place] [address] [place] [address] Care Team Providers Care Rn Hematology Name Role Phone Unavailable Primary Care Provider Unavailabl e Encounter Details Date Type Department Care Team (Late st Contact Info) Description 09/30/2015 Abstract [facility] Emergency Room [address] [place] [address] Yrn Lees MD [address] [place] [address] Social History Tobacco Use Types Packs/Day Years Used Date Smoking Tobacco: Never Assessed Comments Unknown Sex and Gender Information Value Date Recorded Sex Assigned at Female 12/15/2018 11:48 AM BULLDOZER/LOADER/COMPACTOR/SCRAPER Legal Sex Female 8:12 PM CDT Gender Identity Female 12/15/2018 11:48 AM BULLDOZER/LOADER/COMPACTOR/SCRAPER Sexual Orientation Straight 12/15/2018 11 :21 AM BULLDOZER/LOADER/COMPACTOR/SCRAPER documented as of this encounter Plan of Treatment Not on file documented as of this encounter Visit Diagnoses Diagnosis Sprain of left shoulder joint Sprain and strain of unspecified site of shoulder and upper arm documented in this encounter
--- OUTSIDE RECORDS SUMMARY | 2024-10-22 20:36 | XMS_ITS | Encounter Summary ---
Author Organization [facility] Address [address] [place] [address]. [place], [place] [address] [place] [address] Care Team Providers Care Flattening Press Operator Name Role Phone Unavailable Primary Care Provider Unavailabl e Encounter Details Date Type Department Care Team (Late st Contact Info) Description 04/06/2002 Abstract [facility] [address] [place] [address] , Generic Conversion, Social History Tobacco Use Types Packs/Day Years Used Date Smoking Tobacco: Never Assessed Comments Unknown Sex and Gender Information Value Date Recorded Sex Assigned at Female 12/15/2018 11:48 AM MASTER PLANNER Legal Sex Female 8:12 PM CDT Gender Identity Female 12/15/2018 11:48 AM MASTER PLANNER Sexual Orientation Straight 12/15/2018 11 :21 AM MASTER PLANNER documented as of this encounter Plan of Treatment Not on file documented as of this encounter Visit Diagnoses Not on filedocumented in this encounter
--- OUTSIDE RECORDS SUMMARY | 2024-10-22 20:36 | XMS_ITS | Encounter Summary ---
Author Organization [facility] Address [address] [place] [address]. [place] [address] [place] [address] Care Team Providers Care Survey Researcher Name Role Phone Unavailable Primary Care Provider Unavailabl e Encounter Details Date Type Department Care Team (Late st Contact Info) Description 03/15/2004 Abstract [facility] [address] [place] [address] Shasha Ge MD [address] [place] [address] Social History Tobacco Use Types Packs/Day Years Used Date Smoking Tobacco: Never Assessed Comments Unknown Sex and Gender Information Value Date Recorded Sex Assigned at Female 12/15/2018 11:48 AM AD COPY WRITER Legal Sex Female 8:12 PM CDT Gender Identity Female 12/15/2018 11:48 AM AD COPY WRITER Sexual Orientation Straight 12/15/2018 11 :21 AM AD COPY WRITER documented as of this encounter Plan of Treatment Not on file documented as of this encounter Visit Diagnoses Not on filedocumented in this encounter
--- OUTSIDE RECORDS SUMMARY | 2024-10-22 20:36 | XMS_ITS | Encounter Summary ---
Author Organization [facility] Address [address] [place] [address]. [place] [address] [place] [address] Care Team Providers Care Console Operator Name Role Phone Unavailable Primary Care Provider Unavailabl e Encounter Details Date Type Department Care Team (Latest Contact Info) Description 01/03/[address] [facility] Bryon Pérez MD [address] [facility] 2 [place] [address] Social History Tobacco Use Types Packs/Day Years Used Date Smoking Tobacco: Never Assessed Comments Unknown Sex and Gender Information Value Date Recorded Sex Assigned at Female 12/15/2018 11:48 AM PBX OPERATOR Legal Sex Female 8:12 PM CDT Gender Identity Female 12/15/2018 11:48 AM PBX OPERATOR Sexual Orientation Straight 12/15/2018 11 :21 AM PBX OPERATOR documented as of this encounter Last Filed Vital Signs Vital Sign Reading Time Taken Comments Blood Pressure 124/82 01/03/2013 1:43 PM PBX OPERATOR Pulse 73 01/03/2013 1:43 PM PBX OPERATOR Temperature - - Respiratory Rate - - Oxygen Saturation - - Inhaled Oxygen Concentration - - Weight 80.3 kg (177 lb) 01/03/2013 1:43 PM PBX OPERATOR Height - - Body Mass Index 28.57 10/20/2012 10:30 AM PBX OPERATOR documented in this encounter Progress Notes * Bryon Pérez MD - 01/03/2013 1:15 PM CST Reason For Visit Acute Visit Chief Complaint 1. Eye Pain pt presents with c/o right eye pain, redness, itching....onset this morning....pt's son was dx'd with pink eye Active Problems 1. Tinea Corporis 110.5 Current Meds 1. Acidophilus Oral Capsule; Therapy: [id number] to Recorded; For: Health Maintenance (V70.0); Dispense: 0 Days ; #: Sufficient Capsule; Refill: 0; Record; Last Updated By: Marli Duke 2. Lisa 28 3-0.03 MG Oral Tablet; TAKE 1 TABLET BY MOUTH EVERY DAY; Therapy: [id number] to Recorded; Dispense: 28 Days ; #:28 TABS; Refill: 0; Record; Last Updated By: Marli Duke Allergies 1. Penicillins Vitals Signs [Data Includes: Current Encounter] 03Jan2013 01:43PM Temperature: 97.3 F Heart Rate: 73 Respiration: 16 Systolic: 124 Diastolic: 82 O2 Saturation: 98 BMI Calculated: 28.45 BSA Calculated: 1.90 Weight: 177 lb OPERATOR documented in this encounter Plan of Treatment Not on file documented as of this encounter Visit Diagnoses Not on filedocumented in this encounter
--- OUTSIDE RECORDS SUMMARY | 2024-10-22 20:36 | XMS_ITS | Encounter Summary ---
Author Organization [facility] Address [address] [place] [address]. [place] [id number] [place] [address] Care Team Providers Care Issue Clerk Name Role Phone Unavailable Primary Care Provider Unavailabl e Encounter Details Date Type Department Care Team (Latest Contact Info) Description 02/10/2013 Abstract [facility] Social History Tobacco Use Types Packs/Day Years Used Date Smoking Tobacco: Never Assessed Comments Unknown Sex and Gender Information Value Date Recorded Sex Assigned at Female 12/15/2018 11:48 AM MANAGER COMPANY Legal Sex Female 8:12 PM CDT Gender Identity Female 12/15/2018 11:48 AM MANAGER COMPANY Sexual Orientation Straight 12/15/2018 11 :21 AM MANAGER COMPANY documented as of this encounter Plan of Treatment Not on file documented as of this encounter Visit Diagnoses Not on filedocumented in this encounter
--- OUTSIDE RECORDS SUMMARY | 2024-10-22 20:36 | XMS_ITS | Encounter Summary ---
Author Organization [facility] Address [address] [place] [address]. [place] [id number] [place] [address] Care Team Providers Care Manager Talent Name Role Phone Unavailable Primary Care Provider Unavailabl e Encounter Details Date Type Department Care Team (Latest Contact Info) Description 02/09/2013 Abstract [facility] Meg Richardson MD Social History Tobacco Use Types Packs/Day Years Used Date Smoking Tobacco: Never Assessed Comments Unknown Sex and Gender Information Value Date Recorded Sex Assigned at Female 12/15/2018 11:48 AM SALES REPRESENTATIVE BUSINESS COURSES Legal Sex Female 8:12 PM CDT Gender Identity Female 12/15/2018 11:48 AM SALES REPRESENTATIVE BUSINESS COURSES Sexual Orientation Straight 12/15/2018 11 :21 AM SALES REPRESENTATIVE BUSINESS COURSES documented as of this encounter Progress Notes * Noé Hansen NP - 02/09/2013 8:30 AM CDT Reason For Visit Reason For Visit: Worker's Comp Visit Chief Complaint Chief Complaint Free Text: suture removal History of Present Illness HPI Free Text: laceration to right 4th finger at work. had sutures placed ER on January 31, here for removal Review of Systems Focused-Female: Constitutional: Normal. Integumentary: (laceration to right 4th finger with gapping). Active Problems 1. Laceration Of Finger 883.0 2. Tinea Corporis 110.5 Current Meds 1. Acidophilus Oral Capsule; Therapy: [id number] to Recorded; For: Health Maintenance (V70.0); Dispense: 0 Days ; #: Sufficient Capsule; Refill: 0; Record; Last Updated By: Marli Duke 2. Septra TABS; Therapy: (Recorded:02Feb2013) to Recorded; Dispense: 0 Days ; #: Sufficient TABS; Refill: 0; Record; Last Updated By: Marli Duke 3. TraMADol HCl 50 MG Oral Tablet; TAKE 1 TO 2 TABLETS EVERY 6 HOURS NEEDED FOR PAIN; Therapy: 02Feb2013 to (Evaluate:05Feb2013); Last Rx:02Feb2013 Ordered; For: Laceration Of Finger (883.0); Rx By: Noé Hansen; Dispense: 3 Days ; #:20 Tablet; Refill: 0; Print Rx 4. Lisa 28 3-0.03 MG Oral Tablet; TAKE 1 TABLET BY MOUTH EVERY DAY; Therapy: [id number] to Recorded; Dispense: 28 Days ; #:28 TABS; Refill: 0; Record; Last Updated By: Marli Duke Allergies 1. Penicillins Physical Exam Constitutional General appearance: No acute distress, well appearing and well nourished. Musculoskeletal Digits and nails: Normal without clubbing or cyanosis. FROM right 4th finger, good capillary refill. Skin Skin and subcutaneous tissue: Normal without rashes or lesions. Examination of the skin for lesions: Abnormal. Right 4th finger with small linear laceration with good granulation tissue and no gapping with 2 intact sutures. mild erythema around sutures. sutures removed without incident, antibiotic ointment and bandaid applied. Psychiatric Orientation to person, place, and time: Normal. Mood and affect: Normal. Assessment 1. Laceration Of Finger 883.0 Plan instucted to wash daily to BID with antibacterial soap and water. apply polysporin or bacitracin daily for 3-5 more days. no further follow up required Signatures Electronically signed by : Noé Hansen NP; Feb 09 2013 8:56AM (Author) S REPRESENTATIVE BUSINESS COURSES documented in this encounter Plan of Treatment Not on file documented as of this encounter Visit Diagnoses Not on filedocumented in this encounter
--- OUTSIDE RECORDS SUMMARY | 2024-10-22 20:36 | XMS_ITS | Encounter Summary ---
Author Organization [facility] Address [address] [place] [address]. [place], [place] [address] [place] [address] Care Team Providers Care Almond Paste Molder Name Role Phone Unavailable Primary Care Provider Unavailabl e Encounter Details Date Type Department Care Team (Late st Contact Info) Description 05/05/1996 Abstract [facility] [address] [place] [address] , Generic Conversion, Social History Tobacco Use Types Packs/Day Years Used Date Smoking Tobacco: Never Assessed Comments Unknown Sex and Gender Information Value Date Recorded Sex Assigned at Female 12/15/2018 11:48 AM PARALEGAL SPECIALIST Legal Sex Female 8:12 PM CDT Gender Identity Female 12/15/2018 11:48 AM PARALEGAL SPECIALIST Sexual Orientation Straight 12/15/2018 11 :21 AM PARALEGAL SPECIALIST documented as of this encounter Plan of Treatment Not on file documented as of this encounter Visit Diagnoses Not on filedocumented in this encounter
--- OUTSIDE RECORDS SUMMARY | 2024-10-22 20:36 | XMS_ITS | Encounter Summary ---
Author Organization [facility] Address [address] [place] [address]. [place], [place] [address] [place] [address] Care Team Providers Care Individualized Education Plan Aide Name Role Phone Unavailable Primary Care Provider Unavailabl e Encounter Details Date Type Department Care Team (Late st Contact Info) Description 12/26/2000 Abstract [facility] [address] [place] [address] , Generic Conversion, Social History Tobacco Use Types Packs/Day Years Used Date Smoking Tobacco: Never Assessed Comments Unknown Sex and Gender Information Value Date Recorded Sex Assigned at Female 12/15/2018 11:48 AM EXPLOSIVE ORDNANCE DISPOSAL SPECIALIST Legal Sex Female 8:12 PM CDT Gender Identity Female 12/15/2018 11:48 AM EXPLOSIVE ORDNANCE DISPOSAL SPECIALIST Sexual Orientation Straight 12/15/2018 11 :21 AM EXPLOSIVE ORDNANCE DISPOSAL SPECIALIST documented as of this encounter Plan of Treatment Not on file documented as of this encounter Visit Diagnoses Not on filedocumented in this encounter
--- OUTSIDE RECORDS SUMMARY | 2024-10-22 20:36 | XMS_ITS | Encounter Summary ---
Author Organization [facility] Address [address] [place] [address]. [place] [address] [place] [address] Care Team Providers Care Customer Experience Professional Name Role Phone Unavailable Primary Care Provider Unavailabl e Encounter Details Date Type Department Care Team (Late st Contact Info) Description 05/21/2011 Abstract [facility] Emergency Room [address] [place], [place] [id number] Sin Olvera MD [address] [id number] Social History Tobacco Use Types Packs/Day Years Used Date Smoking Tobacco: Never Assessed Comments Unknown Sex and Gender Information Value Date Recorded Sex Assigned at Female 12/15/2018 11:48 AM ASSOCIATE DESIGNER Legal Sex Female 8:12 PM CDT Gender Identity Female 12/15/2018 11:48 AM ASSOCIATE DESIGNER Sexual Orientation Straight 12/15/2018 11 :21 AM ASSOCIATE DESIGNER documented as of this encounter Plan of Treatment Not on file documented as of this encounter Visit Diagnoses Diagnosis Conjunctivitis Conjunctivitis, unspecified documented in this encounter
--- OUTSIDE RECORDS SUMMARY | 2024-10-22 20:36 | XMS_ITS | Encounter Summary ---
Author Organization [facility] Address [address] [place] [address]. [place], [place] [address] [place] [address] Care Team Providers Care Crocheter Name Role Phone Unavailable Primary Care Provider Unavailabl e Encounter Details Date Type Department Care Team (Late st Contact Info) Description 01/31/2013 Abstract [facility] Emergency Room [address] [place] [id number] Jaden Lopez MD Social History Tobacco Use Types Packs/Day Years Used Date Smoking Tobacco: Never Assessed Comments Unknown Sex and Gender Information Value Date Recorded Sex Assigned at Female 12/15/2018 11:48 AM TRANSPORTATION DEPARTMENT HEAD Legal Sex Female 8:12 PM CDT Gender Identity Female 12/15/2018 11:48 AM TRANSPORTATION DEPARTMENT HEAD Sexual Orientation Straight 12/15/2018 11 :21 AM TRANSPORTATION DEPARTMENT HEAD documented as of this encounter Plan of Treatment Not on file documented as of this encounter Visit Diagnoses Diagnosis Open wound of finger Open wound of finger(s) , without mention of complication documented in this encounter
--- OUTSIDE RECORDS SUMMARY | 2024-10-22 20:36 | XMS_ITS | Encounter Summary ---
Author Organization [facility] Address [address] [place] [address]. [place] [address] [place] [address] Care Team Providers Care Scada Engineer Name Role Phone Unavailable Primary Care Provider Unavailabl e Encounter Details Date Type Department Care Team (Late st Contact Info) Description 03/17/2004 Abstract [facility] [address] [place] [address] Shasha Ge MD [address] [place] [address] Social History Tobacco Use Types Packs/Day Years Used Date Smoking Tobacco: Never Assessed Comments Unknown Sex and Gender Information Value Date Recorded Sex Assigned at Female 12/15/2018 11:48 AM IRRIGATION INSTALLATION SPECIALIST Legal Sex Female 8:12 PM CDT Gender Identity Female 12/15/2018 11:48 AM IRRIGATION INSTALLATION SPECIALIST Sexual Orientation Straight 12/15/2018 11 :21 AM IRRIGATION INSTALLATION SPECIALIST documented as of this encounter Plan of Treatment Not on file documented as of this encounter Visit Diagnoses Not on filedocumented in this encounter
--- OUTSIDE RECORDS SUMMARY | 2024-10-22 20:36 | XMS_ITS | Encounter Summary ---
Author Organization [facility] Address [address] [place] [address]. [place], [place] [address] [place] [address] Care Team Providers Care Supervisor Open Hearth Stockyard Name Role Phone Unavailable Primary Care Provider Unavailabl e Encounter Details Date Type Department Care Team (Latest Contact Info) Description 10/20/2012 Abstract [facility] Meg Richardson MD Social History Tobacco Use Types Packs/Day Years Used Date Smoking Tobacco: Never Assessed Comments Unknown Sex and Gender Information Value Date Recorded Sex Assigned at Female 12/15/2018 11:48 AM PARTS SALESPERSON Legal Sex Female 8:12 PM CDT Gender Identity Female 12/15/2018 11:48 AM PARTS SALESPERSON Sexual Orientation Straight 12/15/2018 11 :21 AM PARTS SALESPERSON documented as of this encounter Last Filed Vital Signs Vital Sign Reading Time Taken Comments Blood Pressure 96/60 10/20/2012 10:30 AM PARTS SALESPERSON Pulse 76 10/20/2012 10:30 AM PARTS SALESPERSON Temperature - - Respiratory Rate - - Oxygen Saturation - - Inhaled Oxygen Concentration - - Weight 78.9 kg (174 lb) 10/20/2012 10:30 AM PARTS SALESPERSON Height 167.6 cm (5' 6 ) 10/20/2012 10:30 AM PARTS SALESPERSON Body Mass Index 28.08 10/20/2012 10:30 AM PARTS SALESPERSON documented in this encounter Progress Notes * NIURKA Vargas - 10/20/2012 10:15 AM CST Reason For Visit Reason For Visit: Acute Visit Chief Complaint 1. Rash Chief Complaint Free Text: ring worm to left upper arm. ringworm on arm History of Present Illness HPI Free Text: Reports area of ringworm on left upper inner arm Onset two days ago. Patient's son has fungal infection on his scalp she has been treating. Review of Systems Focused-Female: See HPI for pertinent positives. Active Problems 1. Tinea Corporis 110.5 Past Medical History Patient indicats no significant past medical history. Surgical History Patient indicates no past surgical history. Family History Patient indicates no significant family history of disease. Social History No social history was elicited today. Current Meds 1. Acidophilus Oral Capsule; Therapy: [id number] to Recorded; For: Health Maintenance (V70.0); Dispense: 0 Days ; #: Sufficient Capsule; Refill: 0; Record; Last Updated By: Marli Duke 2. Lisa 28 3-0.03 MG Oral Tablet; TAKE 1 TABLET BY MOUTH EVERY DAY; Therapy: [id number] to Recorded; Dispense: 28 Days ; #:28 TABS; Refill: 0; Record; Last Updated By: Maril Duke Allergies 1. Penicillins Vitals Vital Signs [Data Includes: Current Encounter] [id number] 10:30AM Temperature 99 F Heart Rate 76 Respiration 16 Systolic 96 Diastolic 60 BMI Calculated 27.97 BSA Calculated 1.89 Height 5 ft 6 in Weight 174 lb Physical Exam Constitutional General appearance: No acute distress, well appearing and well nourished. Skin Skin and subcutaneous tissue: Abnormal. One circular, mild erythematous, area with 1mm elevation and positive scale inner antecubital space. Assessment 1. Tinea Corporis 110.5 Plan 1. Ketoconazole 2 % External Cream; APPLY A THIN LAYER TO AFFECTED AREA(S) TWICE DAILY; Therapy: [id number] to (Evaluate:12Nov2012) Requested for: [id number]; Last Rx:[id number]; Edited Ordered; For: Tinea Corporis (110.5); Rx By: Verna Lara; Dispense: 23 Days ; #:45 GM; Refill: 0;Verified Transmission to [id number] Discussion/Summary Discussion Summary Free Text: Rx Ketoconazole cream as directed Follow up prn Signatures Electronically signed by : Verna Lara NP; Oct 20 2012 1:28PM (Author) S SALESPERSON documented in this encounter Plan of Treatment Not on file documented as of this encounter Visit Diagnoses Not on filedocumented in this encounter
--- OUTSIDE RECORDS SUMMARY | 2024-10-22 20:36 | XMS_ITS | Encounter Summary ---
Author Organization [facility] Address [address] [place] [address]. [place], [place] [address] [place] [address] Care Team Providers Care Palliative Care Nurse Name Role Phone Unavailable Primary Care Provider Unavailabl e Encounter Details Date Type Department Care Team (Late st Contact Info) Description 03/07/2012 Abstract [facility] [address] [place] [address] Social History Tobacco Use Types Packs/Day Years Used Date Smoking Tobacco: Never Assessed Comments Unknown Sex and Gender Information Value Date Recorded Sex Assigned at Female 12/15/2018 11:48 AM TRAINING TECHNICIAN Legal Sex Female 8:12 PM CDT Gender Identity Female 12/15/2018 11:48 AM TRAINING TECHNICIAN Sexual Orientation Straight 12/15/2018 11 :21 AM TRAINING TECHNICIAN documented as of this encounter Plan of Treatment Not on file documented as of this encounter Visit Diagnoses Diagnosis Screening for malignant neoplasm of cervix Screening for malignant neoplasm of the cervix documented in this encounter
--- OUTSIDE RECORDS SUMMARY | 2024-10-22 20:36 | XMS_ITS | Encounter Summary ---
Author Organization [facility] Address [address] [place] [address]. [place], [place] [address] [place] [address] Care Team Providers Care Risk Consulting Treasury Director Name Role Phone Unavailable Primary Care Provider Unavailabl e Encounter Details Date Type Department Care Team (Late st Contact Info) Description 02/04/2015 Abstract [facility] Family & Internal Medicine [facility] [address] [place] [address] [place] [address] [place] [address] Social History Tobacco Use Types Packs/Day Years Used Date Smoking Tobacco: Never Assessed Comments Unknown Sex and Gender Information Value Date Recorded Sex Assigned at Female 12/15/2018 11:48 AM DRILLER HELPER Legal Sex Female 8:12 PM CDT Gender Identity Female 12/15/2018 11:48 AM DRILLER HELPER Sexual Orientation Straight 12/15/2018 11 :21 AM DRILLER HELPER documented as of this encounter Last Filed Vital Signs Vital Sign Reading Time Taken Comments Blood Pressure 112/70 02/04/2015 9:13 AM CDT Pulse 64 02/04/2015 9:13 AM CDT Temperature - - Respiratory Rate - - Oxygen Saturation - - Inhaled Oxygen Concentration - - Weight 71.7 kg (158 lb) 02/04/2015 9:13 AM CDT Height - - Body Mass Index 25.5 10/20/2012 10:30 AM DRILLER HELPER documented in this encounter Progress Notes * Noé Hansen NP - 02/04/2015 9:00 AM CDT Reason For Visit Reason For Visit: Acute Visit here to discuss her anxiety and depression. States had a prescriptionfor Aidee Gray 2 years ago and took her last alprazolam yesterday. Sees a counselor ( Sara Gray). Chief Complaint 1. Anxiety 2. Depression History of Present Illness 39 y/o female with increased home stress s.o. with terminal illness that has worsened and is now terminal. has been trying to stay + but notes is irritable with their 6 yr old son, has difficulty sleeping, no energy, tearful a lot, feels overwhelmed and stressed daily. went back to counseling and tries to run for stress relief. previous history of anger issues with anxiety, takes alprazolam infrequently but it helps. never on any other med. is currently on FMLA from work. rarely takes tramadol (last time months ago) Frances Maguire presents with complaints of anxiety. Associated symptoms include difficulty concentrating, excessive worry, fatigue, irritability, muscle tension, nervousness, sweaty palms, sleep disruption and racing heart, but no insomnia, no panic attacks, no chest pain, no choking sensation, no diaphoresis, no dizziness, no fainting, no flushing,no gastrointestinal complaints, no headaches, no heart palpitations, no hyperventilation, no musclepain, no muscle spasms, no paresthesia, no shortness of breath, no sighing respiration and no tremors. Review of Systems Constitutional: feeling poorly and feeling tired, but no fever, no chills and no headache. ENT: normal. Cardiovascular: Normal. Respiratory: Normal. Gastrointestinal: Normal. Genitourinary: Normal. Integumentary: Normal. Musculoskeletal: Normal. Neurological: Normal. Psychiatric: anxiety, but no ideation and no depression. Past Medical History 1. History of Laceration of finger (883.0) (S61.219A) Surgical History Patient indicates no past surgical history. Family History Mother 1. Family history of Breast carcinoma 2. Family history of rheumatoid arthritis (V17.7) (Z82.61) Father 3. Family history of malignant neoplasm of prostate (V16.42) (Z80.42) Social History ?? Current every day smoker (305.1) (F17.200) Current Meds 1. Acidophilus Oral Capsule; Therapy: [id number] to Recorded Dispense: 0 Days ; #: Sufficient Capsule; Refill: 0; For: Health Maintenance; BIANCA = N; Record; LastUpdated By: Marli Duke; 10/20/2012 10:27:42 AM 2. ALPRAZolam 0.25 MG Oral Tablet; TAKE 1 TABLET Other PRN; Therapy: 04Feb2015 to Recorded Rx By: Aidee Gray; Dispense: 0 Days ; #: Sufficient Tablet; Refill: 0; BIANCA = N; Record; Last Updated By: Marli Duke; 02/04/2015 9:20:54 AM 3. Clindamycin HCl - 150 MG Oral Capsule; TAKE 1 CAPSULE 3 times daily; Therapy: 04Feb2015 to Recorded Rx By: Sandi Rebolledo; Dispense: 0 Days ; #: Sufficient Capsule; Refill: 0; BIANCA = N; Record; Last Updated By: Marli Duke; 02/04/2015 9:13:45 AM 4. TraMADol HCl - 50 MG Oral Tablet; TAKE 1 TO 2 TABLETS EVERY 6 HOURS NEEDED FOR PAIN; Therapy: 02Feb2013 to (Evaluate:05Feb2013); Last Rx:02Feb2013 Ordered Rx By: Noé Hansen; Dispense: 3 Days ; #:20 Tablet; Refill: 0; For: PMH: Laceration of finger; BIANCA = N; Print Rx Allergies 1. Penicillins Recorded By: Marli Duke; 10/20/2012 10:26:31 AM Vitals Vital Signs [Data Includes: Current Encounter] Recorded: 04Feb2015 09:13AM Temperature 99.1 F Heart Rate 64 Respiration 16 Systolic 112 Diastolic 70 O2 Saturation 98 Weight 158 lb BMI Calculated 25.5 BSA Calculated 1.81 Physical Exam Constitutional General appearance: Abnormal. Mildly anxious, wrings hands, talks fast. Eyes Conjunctiva and lids: No swelling, erythema or discharge. Pupils and irises: Equal, round and reactive to light. Ears, Nose, Mouth, and Throat External inspection of ears and nose: Normal. Otoscopic examination: Tympanic membranes translucent with normal light reflex. Canals patent without erythema. Oropharynx: Normal with no erythema, edema, exudate or lesions. Pulmonary Respiratory effort: No increased work of breathing or signs of respiratory distress. Auscultation of lungs: Clear to auscultation. Cardiovascular Auscultation of heart: Normal rate and rhythm, normal S1 and S2, without murmurs. Examination of extremities for edema and/or varicosities: Normal. Lymphatic Palpation of lymph nodes in neck: No lymphadenopathy. Skin Skin and subcutaneous tissue: Normal without rashes or lesions. Psychiatric Orientation to person, place, and time: Normal. Mood and affect: Normal. No SI/HI. Assessment 1. Adjustment disorder with anxiety (309.24) (F43.22) Plan Adjustment disorder with anxiety 1. LORazepam 0.5 MG Oral Tablet; take 1/2 to 1 tab po BID prn anxiety Rx By: Noé Hansen; Dispense: 0 Days ; #:60 Tablet; Refill: 0; For: Adjustment disorder with anxiety; BIANCA = N; Print Rx 2. Sertraline HCl - 50 MG Oral Tablet; take 1/2 tab daily for one week then one tablet daily Rx By: Noé Hansen; Dispense: 0 Days ; #:30 Tablet; Refill: 2; For: Adjustment disorder with anxiety; BIANCA = N; Verified Transmission to [id number]; Last Updated By: MyCheck; 02/04/2015 9:50:13 AM 3. Follow-up visit in 6 weeks Outpatient Follow-up Status: Hold For - Scheduling Requested for: 04Feb2015 Ordered; For: Adjustment disorder with anxiety; Ordered By: Noé Hansen Performed: Due: [id number] call if any intolerable side effects to medication continue counseling f/u 6 weeks Discussion/Summary discussed benefits of daily medication for anxiety. also discussed longer acting benzodiazepine. also instructed not to take tramadol very often while on SSRI Signatures Electronically signed by : Noé Hansen NP; Feb 04 2015 11:01AM DRILLER HELPER (Author) documented in this encounter Plan of Treatment Not on file documented as of this encounter Visit Diagnoses Not on filedocumented in this encounter
--- OUTSIDE RECORDS SUMMARY | 2024-10-22 20:36 | XMS_ITS | Encounter Summary ---
Author Organization [facility] Address [address] [place] [address]. [place], [place] [address] [place] [address] Care Team Providers Care Transportation Modeler Name Role Phone Unavailable Primary Care Provider Unavailabl e Encounter Details Date Type Department Care Team (Late st Contact Info) Description 10/24/1998 Abstract [facility] [address] [place] [address] , Generic Conversion, Social History Tobacco Use Types Packs/Day Years Used Date Smoking Tobacco: Never Assessed Comments Unknown Sex and Gender Information Value Date Recorded Sex Assigned at Female 12/15/2018 11:48 AM ARRESTING GEAR OPERATOR Legal Sex Female 8:12 PM CDT Gender Identity Female 12/15/2018 11:48 AM ARRESTING GEAR OPERATOR Sexual Orientation Straight 12/15/2018 11 :21 AM ARRESTING GEAR OPERATOR documented as of this encounter Plan of Treatment Not on file documented as of this encounter Visit Diagnoses Not on filedocumented in this encounter
--- OUTSIDE RECORDS SUMMARY | 2024-10-22 20:36 | XMS_ITS | Encounter Summary ---
Author Organization [facility] Address [address] [place] [address]. [place], [place] [address] [place] [address] Care Team Providers Care Box Truck Owner Operator Name Role Phone Unavailable Primary Care Provider Unavailabl e Encounter Details Date Type Department Care Team (Latest Contact Info) Description 11/07/2012 Abstract [facility] Social History Tobacco Use Types Packs/Day Years Used Date Smoking Tobacco: Never Assessed Comments Unknown Sex and Gender Information Value Date Recorded Sex Assigned at Female 12/15/2018 11:48 AM SUPERVISOR CONTINUOUS WELD PIPE MILL Legal Sex Female 8:12 PM CDT Gender Identity Female 12/15/2018 11:48 AM SUPERVISOR CONTINUOUS WELD PIPE MILL Sexual Orientation Straight 12/15/2018 11 :21 AM SUPERVISOR CONTINUOUS WELD PIPE MILL documented as of this encounter Progress Notes * Meg Richardson MD - 11/07/2012 8:50 AM CST Message Message: received request for Montelukast, AHSAN 12-12 with Verna. Sent one month with 2 refills to [facility] in [place]. Plan 1. Montelukast Sodium 10 MG Oral Tablet; TAKE 1 TABLET DAILY; Therapy: 07Nov2012 to (Evaluate:05Feb2013); Last Rx:07Nov2012 Signatures Electronically signed by : Marli Duke L.P.N.; Nov 07 2012 8:53AM (Author) RVISOR CONTINUOUS WELD PIPE MILL documented in this encounter Plan of Treatment Not on file documented as of this encounter Visit Diagnoses Not on filedocumented in this encounter
--- OUTSIDE RECORDS SUMMARY | 2024-10-22 20:36 | XMS_ITS | Encounter Summary ---
Author Organization [facility] Address [address] [place] [address]. [place] [address] [place] [address] Care Team Providers Care In Store Marketing Representative Name Role Phone Unavailable Primary Care Provider Unavailabl e Encounter Details Date Type Department Care Team (Late st Contact Info) Description 04/05/2010 Abstract [facility] [address] [place] [address] Tash Smith MD [address] [facility] [place] [address] Social History Tobacco Use Types Packs/Day Years Used Date Smoking Tobacco: Never Assessed Comments Unknown Sex and Gender Information Value Date Recorded Sex Assigned at Female 12/15/2018 11:48 AM BANQUET LEAD Legal Sex Female 8:12 PM CDT Gender Identity Female 12/15/2018 11:48 AM BANQUET LEAD Sexual Orientation Straight 12/15/2018 11 :21 AM BANQUET LEAD documented as of this encounter Plan of Treatment Not on file documented as of this encounter Visit Diagnoses Not on filedocumented in this encounter
--- OUTSIDE RECORDS SUMMARY | 2024-10-22 20:36 | XMS_ITS | Encounter Summary ---
Author Organization [facility] Address [address] [place] [address]. [place], [place] [address] [place] [address] Care Team Providers Care Silk Soaker Name Role Phone Unavailable Primary Care Provider Unavailabl e Encounter Details Date Type Department Care Team (Late st Contact Info) Description 04/17/2005 Abstract [facility] [address] [place] [address] Steffen Calloway MD Social History Tobacco Use Types Packs/Day Years Used Date Smoking Tobacco: Never Assessed Comments Unknown Sex and Gender Information Value Date Recorded Sex Assigned at Female 12/15/2018 11:48 AM CAUSTIC OPERATOR Legal Sex Female 8:12 PM CDT Gender Identity Female 12/15/2018 11:48 AM CAUSTIC OPERATOR Sexual Orientation Straight 12/15/2018 11 :21 AM CAUSTIC OPERATOR documented as of this encounter Plan of Treatment Not on file documented as of this encounter Visit Diagnoses Not on filedocumented in this encounter
--- OUTSIDE RECORDS SUMMARY | 2024-10-22 20:36 | XMS_ITS | Encounter Summary ---
Author Organization [facility] Address [address] [place] [address]. [place], [place] [address] [place] [address] Care Team Providers Care Septic Tank Servicer Name Role Phone Unavailable Primary Care Provider Unavailabl e Encounter Details Date Type Department Care Team (Late st Contact Info) Description 12/20/1996 Abstract [facility] [address] [place] [address] , Generic Conversion, Social History Tobacco Use Types Packs/Day Years Used Date Smoking Tobacco: Never Assessed Comments Unknown Sex and Gender Information Value Date Recorded Sex Assigned at Female 12/15/2018 11:48 AM BUILDING INSULATION SUPERVISOR Legal Sex Female 8:12 PM CDT Gender Identity Female 12/15/2018 11:48 AM BUILDING INSULATION SUPERVISOR Sexual Orientation Straight 12/15/2018 11 :21 AM BUILDING INSULATION SUPERVISOR documented as of this encounter Plan of Treatment Not on file documented as of this encounter Visit Diagnoses Not on filedocumented in this encounter
--- OUTSIDE RECORDS SUMMARY | 2024-10-22 20:36 | XMS_ITS | Encounter Summary ---
Author Organization [facility] Address [address] [place] [address]. [place] [address] [place] [address] Care Team Providers Care Sales Coach Name Role Phone Unavailable Primary Care Provider Unavailabl e Encounter Details Date Type Department Care Team (Late st Contact Info) Description 05/12/2013 Abstract [facility] [address] [place], [place] [id number] Aidee Gray, CUSTODIAL MAINTENANCE WORKER [address] [place] [address] Social History Tobacco Use Types Packs/Day Years Used Date Smoking Tobacco: Never Assessed Comments Unknown Sex and Gender Information Value Date Recorded Sex Assigned at Female 12/15/2018 11:48 AM FURNITURE FINISHER Legal Sex Female 8:12 PM CDT Gender Identity Female 12/15/2018 11:48 AM FURNITURE FINISHER Sexual Orientation Straight 12/15/2018 11 :21 AM FURNITURE FINISHER documented as of this encounter Plan of Treatment Not on file documented as of this encounter Visit Diagnoses Diagnosis Screening for malignant neoplasm of cervix Screening for malignant neoplasm of the cervix documented in this encounter
--- OUTSIDE RECORDS SUMMARY | 2024-10-22 20:36 | XMS_ITS | Encounter Summary ---
Author Organization [facility] Address [address] [place] [address]. [place], [place] [address] [place] [address] Care Team Providers Care Honing Machine Try Out Setter Name Role Phone Unavailable Primary Care Provider Unavailabl e Encounter Details Date Type Department Care Team (Late st Contact Info) Description 07/14/1997 Abstract [facility] [address] [place] [address] , Generic Conversion, Social History Tobacco Use Types Packs/Day Years Used Date Smoking Tobacco: Never Assessed Comments Unknown Sex and Gender Information Value Date Recorded Sex Assigned at Female 12/15/2018 11:48 AM FILM SPLICER Legal Sex Female 8:12 PM CDT Gender Identity Female 12/15/2018 11:48 AM FILM SPLICER Sexual Orientation Straight 12/15/2018 11 :21 AM FILM SPLICER documented as of this encounter Plan of Treatment Not on file documented as of this encounter Visit Diagnoses Not on filedocumented in this encounter
--- OUTSIDE RECORDS SUMMARY | 2024-10-22 20:36 | XMS_ITS | Encounter Summary ---
Author Organization [facility] Address [address] [place] [address]. [place] [address] [place] [address] Care Team Providers Care Auto Tech Name Role Phone Unavailable Primary Care Provider Unavailabl e Encounter Details Date Type Department Care Team (Late st Contact Info) Description 08/04/2015 Abstract [facility] [address] [place] [address] Aidee Gray, ACCOUNTS PAYABLE COORDINATOR [address] [place] [address] Social History Tobacco Use Types Packs/Day Years Used Date Smoking Tobacco: Never Assessed Comments Unknown Sex and Gender Information Value Date Recorded Sex Assigned at Female 12/15/2018 11:48 AM EMAIL MARKETING COORDINATOR Legal Sex Female 8:12 PM CDT Gender Identity Female 12/15/2018 11:48 AM EMAIL MARKETING COORDINATOR Sexual Orientation Straight 12/15/2018 11 :21 AM EMAIL MARKETING COORDINATOR documented as of this encounter Plan of Treatment Not on file documented as of this encounter Visit Diagnoses Diagnosis Encounter for screening for malignant neoplasm of cervix Screening for malignant neoplasm of the cervix documented in this encounter
--- OUTSIDE RECORDS SUMMARY | 2024-10-22 20:36 | XMS_ITS | Encounter Summary ---
Author Organization [facility] Address [address] [place] [address]. [place], [place] [address] [place] [address] Care Team Providers Care Refinery Operator Light Ends Recovery Name Role Phone Unavailable Primary Care Provider Unavailabl e Encounter Details Date Type Department Care Team (Late st Contact Info) Description 01/02/2002 Abstract [facility] [address] [place] [address] , Generic Conversion, Social History Tobacco Use Types Packs/Day Years Used Date Smoking Tobacco: Never Assessed Comments Unknown Sex and Gender Information Value Date Recorded Sex Assigned at Female 12/15/2018 11:48 AM IC DESIGN ENGINEER Legal Sex Female 8:12 PM CDT Gender Identity Female 12/15/2018 11:48 AM IC DESIGN ENGINEER Sexual Orientation Straight 12/15/2018 11 :21 AM IC DESIGN ENGINEER documented as of this encounter Plan of Treatment Not on file documented as of this encounter Visit Diagnoses Not on filedocumented in this encounter
--- OUTSIDE RECORDS SUMMARY | 2024-10-22 20:36 | XMS_ITS | Encounter Summary ---
Author Organization [facility] Address [address] [place] [address]. [place], [place] [address] [place] [address] Care Team Providers Care Field Training Agent Name Role Phone Unavailable Primary Care Provider Unavailabl e Encounter Details Date Type Department Care Team (Late st Contact Info) Description 06/05/2013 Abstract [facility] [address] [place] [address] Aidee Gray, SUPERVISOR [address] [place] [address] Social History Tobacco Use Types Packs/Day Years Used Date Smoking Tobacco: Never Assessed Comments Unknown Sex and Gender Information Value Date Recorded Sex Assigned at Female 12/15/2018 11:48 AM SHIPPING AND RECEIVING Legal Sex Female 8:12 PM CDT Gender Identity Female 12/15/2018 11:48 AM SHIPPING AND RECEIVING Sexual Orientation Straight 12/15/2018 11 :21 AM SHIPPING AND RECEIVING documented as of this encounter Plan of Treatment Not on file documented as of this encounter Visit Diagnoses Diagnosis Screening for lipoid disorders documented in this encounter
--- OUTSIDE RECORDS SUMMARY | 2024-10-22 20:36 | XMS_ITS | Encounter Summary ---
Author Organization [facility] Address [address] [place] [address]. [place], [place] [address] [place] [address] Care Team Providers Care Golf Course Patroller Name Role Phone Unavailable Primary Care Provider Unavailabl e Encounter Details Date Type Department Care Team (Late st Contact Info) Description 07/31/2013 Abstract [facility] [address] [place] [address] Steffen Calloway MD Social History Tobacco Use Types Packs/Day Years Used Date Smoking Tobacco: Never Assessed Comments Unknown Sex and Gender Information Value Date Recorded Sex Assigned at Female 12/15/2018 11:48 AM HOME ORGANIZER Legal Sex Female 8:12 PM CDT Gender Identity Female 12/15/2018 11:48 AM HOME ORGANIZER Sexual Orientation Straight 12/15/2018 11 :21 AM HOME ORGANIZER documented as of this encounter Plan of Treatment Not on file documented as of this encounter Visit Diagnoses Diagnosis Pain in joint, forearm documented in this encounter
--- OUTSIDE RECORDS SUMMARY | 2024-10-22 20:36 | XMS_ITS | Encounter Summary ---
Author Organization [facility] Address [address] [place] [address]. [place], [place] [address] [place] [address] Care Team Providers Care Crossbar Frame Wirer Name Role Phone Unavailable Primary Care Provider Unavailabl e Encounter Details Date Type Department Care Team (Late st Contact Info) Description 04/16/1998 Abstract [facility] [address] [place] [address] , Generic Conversion, Social History Tobacco Use Types Packs/Day Years Used Date Smoking Tobacco: Never Assessed Comments Unknown Sex and Gender Information Value Date Recorded Sex Assigned at Female 12/15/2018 11:48 AM TELEPHONE OPERATOR Legal Sex Female 8:12 PM CDT Gender Identity Female 12/15/2018 11:48 AM TELEPHONE OPERATOR Sexual Orientation Straight 12/15/2018 11 :21 AM TELEPHONE OPERATOR documented as of this encounter Plan of Treatment Not on file documented as of this encounter Visit Diagnoses Not on filedocumented in this encounter
--- OUTSIDE RECORDS SUMMARY | 2024-10-22 20:36 | XMS_ITS | Encounter Summary ---
Author Organization [facility] Address [address] [place] [address]. [place], [place] [address] [place] [address] Care Team Providers Care Heating And Refrigeration Inspector Name Role Phone Unavailable Primary Care Provider Unavailabl e Encounter Details Date Type Department Care Team (Late st Contact Info) Description 01/15/2002 Abstract [facility] [address] [place] [address] , Generic Conversion, Social History Tobacco Use Types Packs/Day Years Used Date Smoking Tobacco: Never Assessed Comments Unknown Sex and Gender Information Value Date Recorded Sex Assigned at Female 12/15/2018 11:48 AM JET MAN Legal Sex Female 8:12 PM CDT Gender Identity Female 12/15/2018 11:48 AM JET MAN Sexual Orientation Straight 12/15/2018 11 :21 AM JET MAN documented as of this encounter Plan of Treatment Not on file documented as of this encounter Visit Diagnoses Not on filedocumented in this encounter
--- OUTSIDE RECORDS SUMMARY | 2024-10-22 20:36 | XMS_ITS | Encounter Summary ---
Author Organization [facility] Address [address] [place] [address]. [place] [address] [place] [address] Care Team Providers Care Meat Boner And Slicer Name Role Phone Unavailable Primary Care Provider Unavailabl e Encounter Details Date Type Department Care Team (Late st Contact Info) Description 04/29/2012 Abstract [facility] Emergency Room [address] [place], [place] [id number] Sin Olvera MD [address] [id number] Social History Tobacco Use Types Packs/Day Years Used Date Smoking Tobacco: Never Assessed Comments Unknown Sex and Gender Information Value Date Recorded Sex Assigned at Female 12/15/2018 11:48 AM BANBURY MIXER OPERATOR Legal Sex Female 8:12 PM CDT Gender Identity Female 12/15/2018 11:48 AM BANBURY MIXER OPERATOR Sexual Orientation Straight 12/15/2018 11 :21 AM BANBURY MIXER OPERATOR documented as of this encounter Plan of Treatment Not on file documented as of this encounter Visit Diagnoses Diagnosis Pain in soft tissues of limb Pain in limb documented in this encounter
--- OUTSIDE RECORDS SUMMARY | 2024-10-22 20:36 | XMS_ITS | Encounter Summary ---
Author Organization [facility] Address [address] [place] [address]. [place] [id number] [place] [address] Care Team Providers Care Osd Clerk Name Role Phone Unavailable Primary Care Provider Unavailabl e Encounter Details Date Type Department Care Team (Latest Contact Info) Description 02/05/2013 Abstract [facility] Social History Tobacco Use Types Packs/Day Years Used Date Smoking Tobacco: Never Assessed Comments Unknown Sex and Gender Information Value Date Recorded Sex Assigned at Female 12/15/2018 11:48 AM REFUSE COLLECTOR SUPERVISOR Legal Sex Female 8:12 PM CDT Gender Identity Female 12/15/2018 11:48 AM REFUSE COLLECTOR SUPERVISOR Sexual Orientation Straight 12/15/2018 11 :21 AM REFUSE COLLECTOR SUPERVISOR documented as of this encounter Plan of Treatment Not on file documented as of this encounter Visit Diagnoses Not on filedocumented in this encounter
--- OUTSIDE RECORDS SUMMARY | 2024-10-22 20:36 | XMS_ITS | Encounter Summary ---
Author Organization [facility] Address [address] [place] [address]. [place] [address] [place] [address] Care Team Providers Care Precision Aircraft Structure Assembler Name Role Phone Unavailable Primary Care Provider Unavailabl e Encounter Details Date Type Department Care Team (Late st Contact Info) Description 04/21/2010 Abstract [facility] [address] [place] [address] Tash Smith MD [address] [facility] [place] [address] Social History Tobacco Use Types Packs/Day Years Used Date Smoking Tobacco: Never Assessed Comments Unknown Sex and Gender Information Value Date Recorded Sex Assigned at Female 12/15/2018 11:48 AM YARD COUPLER Legal Sex Female 8:12 PM CDT Gender Identity Female 12/15/2018 11:48 AM YARD COUPLER Sexual Orientation Straight 12/15/2018 11 :21 AM YARD COUPLER documented as of this encounter Plan of Treatment Not on file documented as of this encounter Visit Diagnoses Not on filedocumented in this encounter
--- OUTSIDE RECORDS SUMMARY | 2024-10-22 20:36 | XMS_ITS | Encounter Summary ---
Author Organization [facility] Address [address] [place] [address]. [place] [id number] [place] [address] Care Team Providers Care Manager Advertising Name Role Phone Unavailable Primary Care Provider Unavailabl e Encounter Details Date Type Department Care Team (Latest Contact Info) Description 09/30/2015 Abstract [facility] Social History Tobacco Use Types Packs/Day Years Used Date Smoking Tobacco: Never Assessed Comments Unknown Sex and Gender Information Value Date Recorded Sex Assigned at Female 12/15/2018 11:48 AM DIVIDEND DEPOSIT VOUCHER CLERK Legal Sex Female 8:12 PM CDT Gender Identity Female 12/15/2018 11:48 AM DIVIDEND DEPOSIT VOUCHER CLERK Sexual Orientation Straight 12/15/2018 11 :21 AM DIVIDEND DEPOSIT VOUCHER CLERK documented as of this encounter Plan of Treatment Not on file documented as of this encounter Visit Diagnoses Not on filedocumented in this encounter
--- OUTSIDE RECORDS SUMMARY | 2024-10-22 20:36 | XMS_ITS | Encounter Summary ---
Author Organization [facility] Address [address] [place] [address]. [place], [place] [address] [place] [address] Care Team Providers Care Brand Marketing Intern Name Role Phone Unavailable Primary Care Provider Unavailabl e Encounter Details Date Type Department Care Team (Late st Contact Info) Description 04/05/2008 Abstract [facility] [address] [place] [address] , Generic Conversion, Social History Tobacco Use Types Packs/Day Years Used Date Smoking Tobacco: Never Assessed Comments Unknown Sex and Gender Information Value Date Recorded Sex Assigned at Female 12/15/2018 11:48 AM HEADRIG SAWYER Legal Sex Female 8:12 PM CDT Gender Identity Female 12/15/2018 11:48 AM HEADRIG SAWYER Sexual Orientation Straight 12/15/2018 11 :21 AM HEADRIG SAWYER documented as of this encounter Plan of Treatment Not on file documented as of this encounter Visit Diagnoses Not on filedocumented in this encounter
--- OUTSIDE RECORDS SUMMARY | 2024-10-22 20:36 | XMS_ITS | Encounter Summary ---
Author Organization [facility] Address [address] [place] [address]. [place], [place] [address] [place] [address] Care Team Providers Care Section Forest Fire Warden Name Role Phone Unavailable Primary Care Provider Unavailabl e Encounter Details Date Type Department Care Team (Late st Contact Info) Description 11/17/2007 Abstract [facility] [address] [place] [address] , Generic Conversion, Social History Tobacco Use Types Packs/Day Years Used Date Smoking Tobacco: Never Assessed Comments Unknown Sex and Gender Information Value Date Recorded Sex Assigned at Female 12/15/2018 11:48 AM SPRINKLER INSPECTOR Legal Sex Female 8:12 PM CDT Gender Identity Female 12/15/2018 11:48 AM SPRINKLER INSPECTOR Sexual Orientation Straight 12/15/2018 11 :21 AM SPRINKLER INSPECTOR documented as of this encounter Plan of Treatment Not on file documented as of this encounter Visit Diagnoses Not on filedocumented in this encounter
--- OUTSIDE RECORDS SUMMARY | 2024-10-22 20:36 | XMS_ITS | Encounter Summary ---
Author Organization [facility] Address [address] [place] [address]. [place], [place] [address] [place] [address] Care Team Providers Care Drip Molder Name Role Phone Unavailable Primary Care Provider Unavailabl e Encounter Details Date Type Department Care Team (Late st Contact Info) Description 08/23/1999 Abstract [facility] [address] [place] [address] , Generic Conversion, Social History Tobacco Use Types Packs/Day Years Used Date Smoking Tobacco: Never Assessed Comments Unknown Sex and Gender Information Value Date Recorded Sex Assigned at Female 12/15/2018 11:48 AM REFRIGERATION LEAD Legal Sex Female 8:12 PM CDT Gender Identity Female 12/15/2018 11:48 AM REFRIGERATION LEAD Sexual Orientation Straight 12/15/2018 11 :21 AM REFRIGERATION LEAD documented as of this encounter Plan of Treatment Not on file documented as of this encounter Visit Diagnoses Not on filedocumented in this encounter
--- OUTSIDE RECORDS SUMMARY | 2024-10-22 20:36 | XMS_ITS | Encounter Summary ---
Author Organization [facility] Address [address] [place] [address]. [place], [place] [address] [place] [address] Care Team Providers Care Record Maker Name Role Phone Unavailable Primary Care Provider Unavailabl e Encounter Details Date Type Department Care Team (Late st Contact Info) Description 01/21/2014 Abstract [facility] Emergency Room [address] [place] [address] Lucía Campo, [facility] [address] [address] Social History Tobacco Use Types Packs/Day Years Used Date Smoking Tobacco: Never Assessed Comments Unknown Sex and Gender Information Value Date Recorded Sex Assigned at Female 12/15/2018 11:48 AM TOOL MACHINE SET UP OPERATOR Legal Sex Female 8:12 PM CDT Gender Identity Female 12/15/2018 11:48 AM TOOL MACHINE SET UP OPERATOR Sexual Orientation Straight 12/15/2018 11 :21 AM TOOL MACHINE SET UP OPERATOR documented as of this encounter Plan of Treatment Not on file documented as of this encounter Visit Diagnoses Diagnosis Pain in joint, forearm documented in this encounter
--- OUTSIDE RECORDS SUMMARY | 2024-10-22 20:36 | XMS_ITS | Encounter Summary ---
Author Organization [facility] Address [address] [place] [address]. [place], [place] [address] [place] [address] Care Team Providers Care Dredge Boat Engineer Name Role Phone Unavailable Primary Care Provider Unavailabl e Encounter Details Date Type Department Care Team (Late st Contact Info) Description 10/15/2013 Abstract [facility] Emergency Room [address] [place] [address] Kenji Chandler MD [address] [address] Social History Tobacco Use Types Packs/Day Years Used Date Smoking Tobacco: Never Assessed Comments Unknown Sex and Gender Information Value Date Recorded Sex Assigned at Female 12/15/2018 11:48 AM CORPORATE RECYCLING MANAGER Legal Sex Female 8:12 PM CDT Gender Identity Female 12/15/2018 11:48 AM CORPORATE RECYCLING MANAGER Sexual Orientation Straight 12/15/2018 11 :21 AM CORPORATE RECYCLING MANAGER documented as of this encounter Plan of Treatment Not on file documented as of this encounter Visit Diagnoses Diagnosis Otitis media Unspecified otitis media documented in this encounter
--- OUTSIDE RECORDS SUMMARY | 2024-10-22 20:36 | XMS_ITS | Encounter Summary ---
Author Organization [facility] Address [address] [place] [address]. [place], [place] [address] [place] [address] Care Team Providers Care Supervisor Fabrication Department Name Role Phone Unavailable Primary Care Provider Unavailabl e Encounter Details Date Type Department Care Team (Late st Contact Info) Description 10/05/2015 Abstract [facility] Family & Internal Medicine [facility] [address] [place] [address] [place] [address] [place] [address] Social History Tobacco Use Types Packs/Day Years Used Date Smoking Tobacco: Never Assessed Comments Unknown Sex and Gender Information Value Date Recorded Sex Assigned at Female 12/15/2018 11:48 AM SUBASSEMBLER Legal Sex Female 8:12 PM CDT Gender Identity Female 12/15/2018 11:48 AM SUBASSEMBLER Sexual Orientation Straight 12/15/2018 11 :21 AM SUBASSEMBLER documented as of this encounter Last Filed Vital Signs Vital Sign Reading Time Taken Comments Blood Pressure 116/62 10/05/2015 8:51 AM SUBASSEMBLER Pulse 78 10/05/2015 8:51 AM SUBASSEMBLER Temperature - - Respiratory Rate - - Oxygen Saturation - - Inhaled Oxygen Concentration - - Weight 76.2 kg (168 lb) 10/05/2015 8:51 AM SUBASSEMBLER Height 167.6 cm (5' 6 ) 10/05/2015 8:51 AM SUBASSEMBLER Body Mass Index 27.12 10/05/2015 8:51 AM SUBASSEMBLER documented in this encounter Progress Notes * Noé Hansen NP - 10/05/2015 8:30 AM CST Reason For Visit Reason For Visit: Acute Visit Chief Complaint pt here for f/u ER visit for falling and c/o shoulder pain History of Present Illness HPI Free Text: 39 y/o female here for f/u from ER visit 09/30 for fall onto shoulder (apparently was sitting on counter in kitchen smoking; passed out from drinking and woke up on floor. did not hit anything other than floor. had some initial leg pain but that has resolved. xray was negative. treated with pain medication (records reviewed). is taking ibuprofen 400 mg about every four hours and has been using a sling at times. certain positions are more painful than others. Shoulder Pain: The patient is being seen for follow-up from an emergency room visit for shoulder pain. Symptoms: shoulder pain, shoulder stiffness, localized bruising, localized swelling, localized redness, localized warmth, localized weakness and decreased range of motion at the shoulder. Associated symptoms: neck pain and arm pain, but no fever, no chills, no rash and no pain in other joints. Current treatment includes heat, activity modification, sling, ibuprofen and pain medication. By report, there is fair tolerance of treatment and fair symptom control. Pertinent medical history: no prior shoulder dislocation. Review of Systems Constitutional: Normal. Cardiovascular: Normal. Respiratory: Normal. Gastrointestinal: Normal. Genitourinary: Normal. Integumentary: Normal. Neurological: Normal. Psychiatric: Normal. Active Problems 1. Adjustment disorder with anxiety (309.24) (F43.22) Past Medical History 1. History of Laceration of finger (883.0) (S61.219A) 2. History of URTI (acute upper respiratory infection) (465.9) (J06.9) Surgical History 1. History of Cervical Loop Electrosurgical Excision (LEEP) Family History Mother 1. Family history of Breast carcinoma 2. Family history of rheumatoid arthritis (V17.7) (Z82.61) Father 3. Family history of malignant neoplasm of prostate (V16.42) (Z80.42) Social History ?? Alcohol use (V49.89) (F10.99) ?? Current every day smoker (305.1) (F17.200) ?? Single Current Meds 1. Hydrocodone-Acetaminophen 5-325 MG Oral Tablet; TAKE 1 TABLET EVERY 4 TO 6 HOURS NEEDED FOR PAIN; Therapy: 05Oct2015 to (Evaluate:[id number]) Recorded Dispense: 5 Days ; #:30 Tablet; Refill: 0; For: Left shoulder pain; BIANCA = N; Record; Last Updated By: Gerri Sanchez; 10/05/2015 9:27:55 AM 2. LORazepam 0.5 MG Oral Tablet; take 1/2 to 1 tab po BID prn anxiety; Therapy: 04Feb2015 to (Last Rx:29Aug2015) Ordered Rx By: Noé Hansen; Dispense: 0 Days ; #:60 Tablet; Refill: 0; For: Adjustment disorder with anxiety; BIANCA = N; Print Rx 3. Sertraline HCl - 50 MG Oral Tablet; TAKE 1 TABLET DAILY; Therapy: 04Feb2015 to (Evaluate:[id number]) Requested for: 29Aug2015; Last Rx:[id number] Ordered Rx By: Noé Hansen; Dispense: 90 Days ; #:90 Tablet; Refill: 2; For: Adjustment disorder with anxiety; BIANCA = N; Verified Transmission to [id number]; Last Updated By: [employer]; 08/29/2015 11:58:53 AM Allergies 1. Penicillins Recorded By: Marli Duke; 10/20/2012 10:26:31 AM Vitals Recorded: [id number] 08:51AM Heart Rate 78 Systolic 116 Diastolic 62 O2 Saturation 98 Height 5 ft 6 in Weight 168 lb BMI Calculated 27.12 BSA Calculated 1.86 Physical Exam Constitutional General appearance: No acute distress, well appearing and well nourished. wearing a sling. Pulmonary Respiratory effort: No increased work of breathing or signs of respiratory distress. Auscultation of lungs: Clear to auscultation. Cardiovascular Auscultation of heart: Normal rate and rhythm, normal S1 and S2, without murmurs. Lymphatic Palpation of lymph nodes in neck: No lymphadenopathy. Musculoskeletal Gait and station: Abnormal. avoids moving left arm. Digits and nails: Normal without clubbing or cyanosis. Inspection/palpation of joints, bones, and muscles: Abnormal. bruising noted ant and posterior shoulder with point tenderness in these areas. very limited active ROM, passively can move arm 90 degrees ant and post planes but some discomfort, no popping or crepitus noted. no swelling or warmth in joint. 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 Skin Skin and subcutaneous tissue: Abnormal. limited bruising as noted. Neurologic Cranial nerves: Cranial nerves 2-12 intact. Psychiatric Orientation to person, place, and time: Normal. Mood and affect: Normal. Assessment 1. Contusion of shoulder, left (923.00) (S40.012A) 2. Left shoulder pain (719.41) (M25.512) Plan Contusion of shoulder, left 1. Apply an ice pack 4 times a day for 20 minutes the first 2 days.; Status:Complete; Done: [id number] Ordered; For:Contusion of shoulder, left; Ordered By:Noé Hansen; 2. Avoid activities that cause or worsen the pain.; Status:Complete; Done: [id number] Ordered; For:Contusion of shoulder, left; Ordered By:Noé Hansen; 3. Rest the affected body part as much as possible.; Status:Complete; Done: [id number] Ordered; For:Contusion of shoulder, left; Ordered By:Noé Hansen; Contusion of shoulder, left, Left shoulder pain 4. Ketorolac Tromethamine 60 MG/2ML Injection Solution Rx By: Noé Hansen; For: Contusion of shoulder, left, Left shoulder pain; Dose of 2 ML; Intramuscular; BIANCA = N; Administered by: Gerri Sanchez: 10/05/2015 9:28:00 AM; Last Updated By: Gerri Sanchez;10/05/2015 9:28:34 AM 5. Hydrocodone-Acetaminophen 5-325 MG Oral Tablet; TAKE 1 TABLET EVERY 6 HOURS NEEDED FOR PAIN Rx By: Noé Hansen; Dispense: 5 Days ; #:20 Tablet; Refill: 0; For: Contusion of shoulder, left, Left shoulder pain; BIANCA = N; Print Rx; Last Updated By: Gerri Sanchez; 10/05/2015 9:27:55 AM script given to patient Left shoulder pain 6. Ibuprofen 200 MG Oral Tablet; take 3 tablets every 6 hours for pain; take with food Rx By: Noé Hansen; Dispense: 0 Days ; #:20 Tablet; Refill: 0; For: Left shoulder pain; BIANCA = N; Record 7. Pre-printed Instructions given to patient; Status:Complete; Done: [id number] Ordered; For:Left shoulder pain; Ordered By:Noé Hansen; alternate heat and ice try to go gentle stretches biofreeze may help pain continue to wear sling as needed f/u next saturday Discussion/Summary appears to be a contusion so will give a bit more time for pain to resolve. MRI if not improved in one week Signatures Electronically signed by : Noé Hansen NP; Oct 05 2015 9:45AM SUBASSEMBLER (Author) Electronically signed by : Yrn Padilla M.D.; Nov 07 2015 7:21AM SUBASSEMBLER (Author) documented in this encounter Plan of Treatment Not on file documented as of this encounter Visit Diagnoses Not on filedocumented in this encounter
--- OUTSIDE RECORDS SUMMARY | 2024-10-22 20:36 | XMS_ITS | Encounter Summary ---
Author Organization [facility] Address [address] [place] [address]. [place] [address] [place] [address] Care Team Providers Care Mail Processing Associate Name Role Phone Unavailable Primary Care Provider Unavailabl e Encounter Details Date Type Department Care Team (Late st Contact Info) Description 02/09/2010 Abstract [facility] [address] [place] [address] Nayeli Quesada MD [address] [place] [address] Social History Tobacco Use Types Packs/Day Years Used Date Smoking Tobacco: Never Assessed Comments Unknown Sex and Gender Information Value Date Recorded Sex Assigned at Female 12/15/2018 11:48 AM SUPERVISOR LOCOMOTIVE Legal Sex Female 8:12 PM CDT Gender Identity Female 12/15/2018 11:48 AM SUPERVISOR LOCOMOTIVE Sexual Orientation Straight 12/15/2018 11 :21 AM SUPERVISOR LOCOMOTIVE documented as of this encounter Plan of Treatment Not on file documented as of this encounter Visit Diagnoses Not on filedocumented in this encounter
--- OUTSIDE RECORDS SUMMARY | 2024-10-22 20:36 | XMS_ITS | Encounter Summary ---
Author Organization [facility] Address [address] [place] [address]. [place], [place] [address] [place] [address] Care Team Providers Care Iuss Master Analyst Name Role Phone Unavailable Primary Care Provider Unavailabl e Encounter Details Date Type Department Care Team (Late st Contact Info) Description 08/29/2015 Abstract [facility] Family & Internal Medicine [facility] [address] [place] [address] [place] [address] [place] [address] Social History Tobacco Use Types Packs/Day Years Used Date Smoking Tobacco: Never Assessed Comments Unknown Sex and Gender Information Value Date Recorded Sex Assigned at Female 12/15/2018 11:48 AM WORKFORCE MANAGEMENT MANAGER Legal Sex Female 8:12 PM CDT Gender Identity Female 12/15/2018 11:48 AM WORKFORCE MANAGEMENT MANAGER Sexual Orientation Straight 12/15/2018 11 :21 AM WORKFORCE MANAGEMENT MANAGER documented as of this encounter Last Filed Vital Signs Vital Sign Reading Time Taken Comments Blood Pressure 118/62 08/29/2015 11:36 AM CDT Pulse 70 08/29/2015 11:36 AM CDT Temperature - - Respiratory Rate - - Oxygen Saturation - - Inhaled Oxygen Concentration - - Weight 74.8 kg (165 lb) 08/29/2015 11:36 AM CDT Height 167.6 cm (5' 6 ) 08/29/2015 11:36 AM CDT Body Mass Index 26.63 08/29/2015 11:36 AM CDT documented in this encounter Progress Notes * Noé Hansen NP - 08/29/2015 11:30 AM CDT Reason For Visit Chronic Recheck Visit Chief Complaint pt here for 6 month f/u visit and medication refills History of Present Illness HPI Free Text: 39 y/o female with recent loss of s.o. here for f/u of anxiety. had been doing well but ran out of medication and due to ill son delayed getting back in and has noted feeling more anxious since out of medication. is now trying to home school her son who has some behavioral issues. is trying to get back into exercising as that has always helped her moods. also c/o upper respiratory symptoms and fever that lingered after having the flu. son is with her for appt. Anxiety Disorder (Follow-Up): The patient is being seen for follow-up of generalized anxiety disorder. The patient reports doing poorly. She has no comorbid illnesses. Interval symptoms: worsened anxiety, worsened difficulty concentrating, worsened restlessness, worsened panic attacks, worsened sleep disruption and worsened depression. Associated symptoms: no grandiosity, no racing thoughts, no periods of euphoria, no hallucinations and no suicidal ideation. Medication(s): selective serotonin reuptake inhibitors and benzodiazepines. Medications: the patient is not adherent to her medication regimen (ran out ) She reports not taking the medication due to lack of access to a pharmacy. Diet: She does not have a healthy diet.Weight Issues: She does not have any weight concerns.Exercise: She does not exercise regularly.Smoking: She uses tobacco. Cold Symptoms: Frances Maguire presents with complaints of gradual onset of moderate cold symptoms. Her symptoms are reportedly caused by home contact with URI. Symptoms are improving. Associated symptoms include nasal congestion, post nasal drainage, scratchy throat, dry cough, productive cough, plugged ear(s) and fatigue, but no ear pain, no swollen lymph nodes, no wheezing, no shortness of breath, no weakness, no nausea, no vomiting, no diarrhea and no chills. The patient presents with complaints of bilateral frontal headache. The patient presents with complaints of fever, described as > 99 f. Review of Systems Constitutional: fever, feeling tired and headache, but no chills. Cardiovascular: Normal. Gastrointestinal: Normal. Genitourinary: Normal. Integumentary: Normal. Musculoskeletal: Normal. Neurological: Normal. Psychiatric: anxiety and depression, but no suicidal ideation. Active Problems 1. Adjustment disorder with anxiety (309.24) (F43.22) Past Medical History 1. History of Laceration of finger (883.0) (S61.219A) Family History Mother 1. Family history of Breast carcinoma 2. Family history of rheumatoid arthritis (V17.7) (Z82.61) Father 3. Family history of malignant neoplasm of prostate (V16.42) (Z80.42) Social History ?? Current every day smoker (305.1) (F17.200) Current Meds 1. Acidophilus Oral Capsule; Therapy: [id number] to Recorded 2. LORazepam 0.5 MG Oral Tablet; take 1/2 to 1 tab po BID prn anxiety; Therapy: [id number] to (Last Rx:[id number]) Ordered 3. Sertraline HCl - 50 MG Oral Tablet; take 1/2 tab daily for one week then one tablet daily; Therapy: 04Feb2015 to (Last Rx:[id number]) Requested for: [id number] Ordered 4. TraMADol HCl - 50 MG Oral Tablet; TAKE 1 TO 2 TABLETS EVERY 6 HOURS NEEDED FOR PAIN; Therapy: 02Feb2013 to (Evaluate:43Ppi4911); Last Rx:[id number] Ordered Allergies 1. Penicillins Vitals Recorded: 29Aug2015 11:36AM Heart Rate 70 Blood Pressure 62 mm Hg 118 mm Hg O2 Saturation 98 Height 5 ft 6 in Weight 165 lb BMI Calculated 26.63 kg/m2 BSA Calculated 1.84 m2 Physical Exam Constitutional General appearance: No acute distress, well appearing and well nourished. Eyes Conjunctiva and lids: No swelling, erythema or discharge. Pupils and irises: Equal, round, reactive to light. Ears, Nose, Mouth, and Throat External inspection of ears and nose: Abnormal. Nares hyperemic. Otoscopic examination: Tympanic membranes translucent with normal light reflex. Canals patent without erythema. Nasal mucosa, septum, and turbinates: Abnormal. Scant yellow discharge. Oropharynx: Abnormal. Throat mild redness with cryptic tonsils without exudate. Neck Neck: Supple, symmetric, trachea midline, no masses. Thyroid: Normal, no thyromegaly. Pulmonary Respiratory effort: No increased work of breathing or signs of respiratory distress. Intermittent moist cough. Auscultation of lungs: Clear to auscultation. Cardiovascular Auscultation of heart: Normal rate and rhythm, normal S1 and S2, no murmurs. Pedal pulses: 2+ bilaterally. Examination of extremities for edema and/or varicosities: Normal. Abdomen Abdomen: Non-tender, no masses. Liver and spleen: No hepatomegaly or splenomegaly. Lymphatic Palpation of lymph nodes in neck: Abnormal. Slightly enlarged left ant. cerv node. Musculoskeletal Gait and station: Normal. Skin Skin and subcutaneous tissue: Normal without rashes or lesions. Neurologic Cranial nerves: Cranial nerves II-XII intact. Psychiatric Recent and remote memory: Intact. Mood and affect: Normal. Assessment 1. Adjustment disorder with anxiety (309.24) (F43.22) 2. URTI (acute upper respiratory infection) (465.9) (J06.9) Plan Adjustment disorder with anxiety 1. LORazepam 0.5 MG Oral Tablet; take 1/2 to 1 tab po BID prn anxiety Rx By: Noé Hansen; Dispense: 0 Days ; #:60 Tablet; Refill: 0; For: Adjustment disorder with anxiety; BIANCA = N; Print Rx 2. Sertraline HCl - 50 MG Oral Tablet; TAKE 1 TABLET DAILY Rx By: Noé Hansen; Dispense: 90 Days ; #:90 Tablet; Refill: 2; For: Adjustment disorder with anxiety; BIANCA = N; Sent To: [facility] #[id number] 3. Avoid alcoholic beverages.; Status:Active; Requested for:29Aug2015; Ordered; For:Adjustment disorder with anxiety; Ordered By:Noé Hansen; 4. Avoid foods and beverages that contain caffeine.; Status:Active; Requested for:29Aug2015; Ordered; For:Adjustment disorder with anxiety; Ordered By:Noé Hansen; 5. Be sure to get at least 8 hours of sleep every night.; Status:Active; Requested for:29Aug2015; Ordered; For:Adjustment disorder with anxiety; Ordered By:Noé Hansen; 6. Decreasing the stress in your life may help your condition improve.; Status:Active; Requested for:29Aug2015; Ordered; For:Adjustment disorder with anxiety; Ordered By:Noé Hansen; URTI (acute upper respiratory infection) 7. Azithromycin 250 MG Oral Tablet; TAKE 2 TABLETS ON DAY 1 THEN TAKE 1 TABLET A DAY FOR 4 DAYS Rx By: Noé Hansen; Dispense: 0 Days ; #:6 Tablet; Refill: 0; For: URTI (acute upper respiratory infection); BIANCA = N; Print Rx 8. Drink at least 6 glasses of water or juice a day.; Status:Active; Requested for:29Aug2015; Ordered; For:URTI (acute upper respiratory infection); Ordered By:Noé Hansen; 9. Good hand washing is one of the best ways to control the spread of germs.; Status:Active; Requested for:29Aug2015; Ordered; For:URTI (acute upper respiratory infection); Ordered By:Noé Hansen; 10. You need to stop smoking. Though it is not easy, more than half of all adult smokers have quit. We encourage you to write down all the reasons you should quit smoking and set a quit date for yourself. Ask us how we can help. You may also call 8-692-MTSQNOW for free resources and assistance.; Status:Active; Requested for:29Aug2015; Ordered; For:URTI (acute upper respiratory infection); Ordered By:Noé Hansen; come back in when you feel better for a flu shot f/u with me in 6 months so we can discuss preventive health, get lab, etc. start antibiotic if your symptoms don't improve with home measures Signatures Electronically signed by : Noé Hansen NP; Aug 29 2015 1:33PM WORKFORCE MANAGEMENT MANAGER (Author) documented in this encounter Plan of Treatment Not on file documented as of this encounter Visit Diagnoses Not on filedocumented in this encounter
--- OUTSIDE RECORDS SUMMARY | 2024-10-22 20:36 | XMS_ITS | Encounter Summary ---
Author Organization [facility] Address [address] [place] [address]. [place], [place] [address] [place] [address] Care Team Providers Care Disaster Recovery Analyst Name Role Phone Unavailable Primary Care Provider Unavailabl e Encounter Details Date Type Department Care Team (Late st Contact Info) Description 08/08/1999 Abstract [facility] [address] [place] [address] , Generic Conversion, Social History Tobacco Use Types Packs/Day Years Used Date Smoking Tobacco: Never Assessed Comments Unknown Sex and Gender Information Value Date Recorded Sex Assigned at Female 12/15/2018 11:48 AM WAX ENGRAVER Legal Sex Female 8:12 PM CDT Gender Identity Female 12/15/2018 11:48 AM WAX ENGRAVER Sexual Orientation Straight 12/15/2018 11 :21 AM WAX ENGRAVER documented as of this encounter Plan of Treatment Not on file documented as of this encounter Visit Diagnoses Not on filedocumented in this encounter
--- OUTSIDE RECORDS SUMMARY | 2024-10-22 20:36 | XMS_ITS | Encounter Summary ---
Author Organization [facility] Address [address] [place] [address]. [place] [address] [place] [address] Care Team Providers Care Teacher Counselor Name Role Phone Unavailable Primary Care Provider Unavailabl e Encounter Details Date Type Department Care Team (Late st Contact Info) Description 02/13/2012 Abstract [facility] Emergency Room [address] [place] [address] Sin Olvera MD [address] [place] [address] [id number] Social History Tobacco Use Types Packs/Day Years Used Date Smoking Tobacco: Never Assessed Comments Unknown Sex and Gender Information Value Date Recorded Sex Assigned at Female 12/15/2018 11:48 AM SENIOR ELECTRICAL ESTIMATOR Legal Sex Female 8:12 PM CDT Gender Identity Female 12/15/2018 11:48 AM SENIOR ELECTRICAL ESTIMATOR Sexual Orientation Straight 12/15/2018 11 :21 AM SENIOR ELECTRICAL ESTIMATOR documented as of this encounter Plan of Treatment Not on file documented as of this encounter Visit Diagnoses Diagnosis Disorder of teeth and supporting structures Unspecified disorder of the teeth and supporting structures documented in this encounter
--- OUTSIDE RECORDS SUMMARY | 2024-10-22 20:36 | XMS_ITS | Encounter Summary ---
Author Organization [facility] Address [address] [place] [address]. [place], [place] [address] [place] [address] Care Team Providers Care Clamp Remover Name Role Phone Unavailable Primary Care Provider Unavailabl e Encounter Details Date Type Department Care Team (Latest Contact Info) Description 02/02/2013 Abstract [facility] Meg Richardson MD Social History Tobacco Use Types Packs/Day Years Used Date Smoking Tobacco: Never Assessed Comments Unknown Sex and Gender Information Value Date Recorded Sex Assigned at Female 12/15/2018 11:48 AM INTEGRATIVE MEDICINE PHYSICIAN Legal Sex Female 8:12 PM CDT Gender Identity Female 12/15/2018 11:48 AM INTEGRATIVE MEDICINE PHYSICIAN Sexual Orientation Straight 12/15/2018 11 :21 AM INTEGRATIVE MEDICINE PHYSICIAN documented as of this encounter Last Filed Vital Signs Vital Sign Reading Time Taken Comments Blood Pressure 114/60 02/02/2013 3:29 PM CDT Pulse 76 02/02/2013 3:29 PM CDT Temperature - - Respiratory Rate - - Oxygen Saturation - - Inhaled Oxygen Concentration - - Weight 81.6 kg (180 lb) 02/02/2013 3:29 PM CDT Height - - Body Mass Index 29.05 10/20/2012 10:30 AM INTEGRATIVE MEDICINE PHYSICIAN documented in this encounter Progress Notes * Noé Hansen NP - 02/02/2013 3:00 PM CDT Chief Complaint 1. Finger Problem Chief Complaint Free Text: finger and wrist pain History of Present Illness HPI Free Text: laceration repair with 2 sutures placed at ER on 01/31. not given anything for pain. bought a fingersplint but it rubs. now hurts into wrist. is afraid to move finger as area will split open. has been washing with soap and water and applying neosporin. ER records reviewed Review of Systems Focused-Female: Constitutional: Normal. Respiratory: Normal. Gastrointestinal: Normal. Musculoskeletal: Normal. Neurological: Normal. Active Problems 1. Tinea Corporis 110.5 Current Meds 1. Acidophilus Oral Capsule; Therapy: [id number] to Recorded; For: Health Maintenance (V70.0); Dispense: 0 Days ; #: Sufficient Capsule; Refill: 0; Record; Last Updated By: Marli Duke 2. Septra TABS; Therapy: (Recorded:02Feb2013) to Recorded; Dispense: 0 Days ; #: Sufficient TABS; Refill: 0; Record; Last Updated By: Marli Duke 3. Lisa 28 3-0.03 MG Oral Tablet; TAKE 1 TABLET BY MOUTH EVERY DAY; Therapy: [id number] to Recorded; Dispense: 28 Days ; #:28 TABS; Refill: 0; Record; Last Updated By: Mrali Duke Allergies 1. Penicillins Vitals Vital Signs [Data Includes: Current Encounter] 02Feb2013 03:29PM Temperature 98.8 F Heart Rate 76 Respiration 16 Systolic 114 Diastolic 60 BMI Calculated 28.93 BSA Calculated 1.92 Weight 180 lb Physical Exam Constitutional General appearance: No acute distress, well appearing and well nourished. Eyes Conjunctiva and lids: No swelling, erythema or discharge. Pulmonary Respiratory effort: No increased work of breathing or signs of respiratory distress. Cardiovascular Examination of extremities for edema and/or varicosities: Normal. Good capillary refill fingers with warmth. Musculoskeletal Digits and nails: Abnormal. See skin . Inspection/palpation of joints, bones, and muscles: Normal. No tenderness wrists or forearms. Skin Skin and subcutaneous tissue: Normal without rashes or lesions. Examination of the skin for lesions: Abnormal. Small clean healing laceration to dorsum right 4th finger near PIP with 2 sutures intact, fair skin aproximation, no discharge, redness or drainage. FROM finger but states it hurts to move, FROM wrist. Neurologic Cranial nerves: Cranial nerves 2-12 intact. Sensation: No sensory loss. Psychiatric Orientation to person, place, and time: Normal. Mood and affect: Normal. Assessment 1. Laceration Of Finger 883.0 Plan 1. TraMADol HCl 50 MG Oral Tablet; TAKE 1 TO 2 TABLETS EVERY 6 HOURS NEEDED FOR PAIN; Therapy: 02Feb2013 to (Evaluate:05Feb2013); Last Rx:02Feb2013 Ordered; For: Laceration Of Finger (883.0); Rx By: Noé Hansen; Dispense: 3 Days ; #:20 Tablet; Refill: 0; Print Rx 2. Mao Bandage 2 Requested for: 02Feb2013 Ordered; For: Laceration Of Finger (883.0); Ordered By: Noé Hansen Perform: Not Applicable Due: 02Feb2013 3. FINGER SPLINT MEDIUM Requested for: 02Feb2013 Ordered; For: Laceration Of Finger (883.0); Ordered By: Noé Hansen Perform: Not Applicable Due: 02Feb2013 long finger splint applied with mao wrap for support. encouraged to move wrist more, take ibuprofen, ice finger. given a rx for tramadol. sutures out in 7 days Signatures Electronically signed by : Marli Duke L.P.N.; Feb 02 2013 3:33PM (Author) Electronically signed by : Noé Hansen NP; Feb 02 2013 4:01PM (Author) GRATIVE MEDICINE PHYSICIAN documented in this encounter Plan of Treatment Not on file documented as of this encounter Visit Diagnoses Not on filedocumented in this encounter
--- OUTSIDE RECORDS SUMMARY | 2024-10-22 20:36 | XMS_ITS | Encounter Summary ---
Author Organization [facility] Address [address] [place] [address]. [place], [place] [address] [place] [address] Care Team Providers Care Capacitor Pack Press Operator Name Role Phone Unavailable Primary Care Provider Unavailabl e Encounter Details Date Type Department Care Team (Latest Contact Info) Description 05/16/2015 Abstract [facility] Social History Tobacco Use Types Packs/Day Years Used Date Smoking Tobacco: Never Assessed Comments Unknown Sex and Gender Information Value Date Recorded Sex Assigned at Female 12/15/2018 11:48 AM ENGINEHOUSE BRAKEMAN Legal Sex Female 8:12 PM CDT Gender Identity Female 12/15/2018 11:48 AM ENGINEHOUSE BRAKEMAN Sexual Orientation Straight 12/15/2018 11 :21 AM ENGINEHOUSE BRAKEMAN documented as of this encounter Progress Notes * Generic Conversion MD Elle - 05/16/2015 11:52 AM CDT Message Recorded as Task Date: 05/13/2015 02:14 PM, Created By: Zarina Dougherty Task Name: Renew Medication Assigned To: [facility] Nurse Team Regarding Patient: Frances Maguire, Status: In Progress Comment: Zarina Dougherty - 13 May 2015 2:14 PM TASK CREATED recieved a request for rf on sertraline 50mg in last ov. states f/u in 6 wks. she needs an appt. lmtcb 05/13/15 2;14 Zarina Dougherty - 13 May 2015 2:16 PM TASK EDITED Marli Duke - 17 May 2015 9:53 AM TASK EDITED reviewed chart and it was filled yesterday. Plan 1. Sertraline HCl - 50 MG Oral Tablet; take 1/2 tab daily for one week then one tablet daily Rx By: Noé Hansen; Dispense: 0 Days ; #:30 Tablet; Refill: 2; For: Adjustment disorder with anxiety; BIANCA = N; Verified Transmission to [facility] #[id number]; Last Updated By: Penny Eden; 05/16/2015 11:53:09 AM Signatures Electronically signed by : Marli Duke L.P.N.; May 17 2015 9:53AM ENGINEHOUSE BRAKEMAN (Author) documented in this encounter Plan of Treatment Not on file documented as of this encounter Visit Diagnoses Not on filedocumented in this encounter
--- OUTSIDE RECORDS SUMMARY | 2024-10-22 20:36 | XMS_ITS | Encounter Summary ---
Author Organization [facility] Address [address] [place] [address]. [place], [place] [address] [place] [address] Care Team Providers Care Heel Molder Name Role Phone Unavailable Primary Care Provider Unavailabl e Encounter Details Date Type Department Care Team (Late st Contact Info) Description 06/22/2003 Abstract [facility] [address] [place] [address] , Generic Conversion, Social History Tobacco Use Types Packs/Day Years Used Date Smoking Tobacco: Never Assessed Comments Unknown Sex and Gender Information Value Date Recorded Sex Assigned at Female 12/15/2018 11:48 AM AUTHOR Legal Sex Female 8:12 PM CDT Gender Identity Female 12/15/2018 11:48 AM AUTHOR Sexual Orientation Straight 12/15/2018 11 :21 AM AUTHOR documented as of this encounter Plan of Treatment Not on file documented as of this encounter Visit Diagnoses Not on filedocumented in this encounter
--- OUTSIDE RECORDS SUMMARY | 2024-10-22 20:47 | XMS_ITS | Encounter Summary ---
Author Organization [facility] Address [address] [place] [address] Care Team Providers Care Tax Record Clerk Name Role Phone Unavailable Primary Care Provider Unavailabl e Encounter Details Date Type Department Care Team (Late st Contact Info) Description 09/05/2020 Lab Requisition [facility] Department of Public Health Community Testing [facility] [address] [place] [address] [place] [address] [place] [address] Social History Tobacco Use Types Packs/Day Years Used Date Smoking Tobacco: Never Assessed Comments Unknown Sex and Gender Information Value Date Recorded Sex Assigned at Not on file Legal Sex Female 9:21 AM VALIDATION ANALYST Gender Identity Not on file Sexual Orientation Not on file documented as of this encounter Plan of Treatment Not on file documented as of this encounter Procedures Procedure Name Priority Date/Time Associated Diagnosis Comments SARS-COV-2 PCR [facility] ONLY Routine 09/05/2020 9:36 AM VALIDATION ANALYST documented in this encounter Visit Diagnoses Not on filedocumented in this encounter
--- OUTSIDE RECORDS SUMMARY | 2024-10-22 20:47 | XMS_ITS | Encounter Summary ---
Author Organization [facility] Address [address] [place] [address] Care Team Providers Care Wooden Barrel Mechanic Name Role Phone Unavailable Primary Care Provider Unavailabl e Encounter Details Date Type Department Care Team (Late st Contact Info) Description 09/05/2020 10:00 AM SUPERVISOR BUFFING AND PASTING Rapid Evaluation [place] [facility] Community Testing [facility] [address] [place] [address] Social History Tobacco Use Types Packs/Day Years Used Date Smoking Tobacco: Never Assessed Comments Unknown Sex and Gender Information Value Date Recorded Sex Assigned at Not on file Legal Sex Female 9:21 AM SUPERVISOR BUFFING AND PASTING Gender Identity Not on file Sexual Orientation Not on file documented as of this encounter Plan of Treatment Not on file documented as of this encounter Visit Diagnoses Not on filedocumented in this encounter
--- OUTSIDE RECORDS SUMMARY | 2024-10-22 20:47 | XMS_ITS | Clinical Summary ---
Author Organization [facility] Address [address] [place] [address] Care Team Providers Care Csr Technician Name Role Phone Unavailable Primary Care Provider Unavailabl e Social History Tobacco Use Types Packs/Day Years Used Date Smoking Tobacco: Never Assessed Comments Unknown Sex and Gender Information Value Date Recorded Sex Assigned at Not on file Legal Sex Female 9:21 AM FRENCH BINDER Gender Identity Not on file Sexual Orientation Not on file Plan of Treatment Health Maintenance Due Date Last Done Comments Hepatitis C Virus (HCV) Screening 1977 Hepatitis B Immunization (1 of 3 - 19+ 3-dose series) 1996 Pap Smear 1998 Cervical Cancer Screening (CCS) 2007 HPV/Cotest 2007 Discussion re Starting/Frequency of Mammograms 2017 Colonoscopy 2022 Colorectal Cancer Screening 2022 SARS-COV-2 Immunization ( season) 2023 Influenza Immunization (Season Ended) 2024 DTaP/Tdap/Td Immunization Discontinued 2011, 07/02/2008 TdaP Immunization Completed 04/29/2012 Meningococcal Immunization (ACWY) Aged Out No longer eligible based on patient's age to complete this topic Pneumococcal Immunization Combined Aged Out No longer eligible based on patient's age to complete this topic Rotavirus Immunization Aged Out No lo nger eligible based on patient's age to complete this topic
--- OUTSIDE RECORDS SUMMARY | 2024-10-22 20:54 | XMS_ITS | Encounter Summary ---
Author Organization [facility] Address [address] [place] [address]. [place], [place] [address] [place] [address] Care Team Providers Care Mechanical Lead Name Role Phone Josefa Rodríguez PA-C Primary Care Provider [phone] Encounter Details Date Type Department Care Team [...] Assigned at Female 12/15/2018 11:48 AM CLINICAL LABORATORY TECHNOLOGIST Legal Sex Female 8:12 PM CDT Gender Identity Female 12/15/2018 11:48 AM CLINICAL LABORATORY TECHNOLOGIST Sexual Orientation Straight 12/15/2018 11 :21 AM CLINICAL LABORATORY TECHNOLOGIST Occupation Industry Job Start Date Job End Date [employer] Not on file Not on file Not on file documented as of this encounter Plan of Treatment Not on file documented as of this encounter Visit Diagnoses Not on filedocumented in this encounter Additional Health Concerns Assessment Noted Time PHQ-9 Depression Total Score: 15 11/26/ 023 10:20 AM CLINICAL LABORATORY TECHNOLOGIST documented as of this encounter Care Teams Mechanical Lead Relationship Specialty Start Date End Date Josefa Rodríguez PA-C [address] [place] [address] PCP - General PHYSICIAN STORE MANAGEMENT TRAINEE 08/12/23 documented as of this encounter
--- OUTSIDE RECORDS SUMMARY | 2024-10-22 20:54 | XMS_ITS | Clinical Summary ---
Author Organization [facility] Address [facility] [place] [address] [place] [address] Care Team Providers Care Director Of Accounts Receivable Name Role Phone Josefa Rodríguez PA-C Primary Care Provider [phone] Allergies Active Allergy Reactions Criticality Noted Date [...] Type Department Care Team Description 10/18/2024 Scan [email or web address] INFO SRVCS Scanned, Doc Med Group Image (SCAN) 07/23/2024 Telephone [facility] Medical Group Family & Internal Medicine [facility] [address] [place] [address] Josefa Rodríguez, PAMarceloC Information from [...] Sex Assigned at Female 12/15/2018 11:48 AM DRY PAN FEEDER Legal Sex Female 8:12 PM CDT Gender Identity Female 12/15/2018 11:48 AM DRY PAN FEEDER Sexual Orientation Straight 12/15/2018 11 :21 AM DRY PAN FEEDER Occupation Industry Job Start Date Job End Date [employer] Not on file Not on [...] Relevant to Health Maintenance Insurance [facility] Care Teams Director Of Accounts Receivable Relationship Specialty Start Date End Date Josefa Rodríguez PA-C [address] [place] [address] PCP - General PHYSICIAN GROUNDMAN 08/12/23
--- OUTSIDE RECORDS SUMMARY | 2024-10-22 20:54 | XMS_ITS | Encounter Summary ---
Author Organization [facility] Address [address] [place] [address]. [place], [place] [address] [place] [address] Care Team Providers Care Switchman Supervisor Name Role Phone Yunior Hogan PA-C Primary Care Provider Reason for Visit * Reason Comments Foot Injury Yesterday - rolled l eft foot Encounter Details Date Type Department Care Team (Late st Contact Info) Description 06/18/2024 10:20 AM CDT Office Visit [facility] Medical Group Family & Internal Medicine [facility] [id number] [place] [address] Carolyn Cordero, CLEAN UP HELPER [place] [address] [address] Foot Injury (Yesterday - rolled [...] Assigned at Female 12/15/2018 11:48 AM PARTS AND SERVICE MANAGER Legal Sex Female 8:12 PM CDT Gender Identity Female 12/15/2018 11:48 AM PARTS AND SERVICE MANAGER Sexual Orientation Straight 12/15/2018 11 :21 AM PARTS AND SERVICE MANAGER Occupation Industry Job Start Date Job End Date [employer] Not on file Not on [...] the day of the encounter. This includes zagm-hi-ufoj and mod-txbk-gw-face time I provided on the day of [...] MD, 06/18/2024 4:26 PM us Carolyn Cordero CLEAN UP HELPER [facility] GENERAL IMAG[facility] Final Resu lt * XR [...] MD, 06/18/2024 4:26 PM us Carolyn Cordero CLEAN UP HELPER [facility] GENER[facility] Final Resu lt documented in this encounter Visit Diagnoses Diagnosis Acute left ankle pain- Primary Left foot pain Pain in limb Left foot pain Pain in limb Acute left ankle pain documented in this encounter Additional Health Concerns Assessment Noted Time PHQ-9 Depression Total Score: 15 11/26/ 023 10:20 AM PARTS AND SERVICE MANAGER documented as of this encounter Care Teams Switchman Supervisor Relationship Specialty Start Date End Date Yunior Hogan PA-C [address] [address] PCP - General PHYSICIAN V GROOVE CUTTER 08/12/23 documented as of this encounter
--- OUTSIDE RECORDS SUMMARY | 2024-10-22 20:54 | XMS_ITS | Encounter Summary ---
Author Organization [facility] Address [address] [place] [address]. [place], [place] [address] [place] [address] Care Team Providers Care Packing Line Operator Name Role Phone Josefa Rodríguez PA-C Primary Care Provider [phone] Encounter Details Date Type Department Care Team (Latest Contact Info) Description 06/18/2024 11:12 AM CDT - 06/18/2024 11:59 PM T Hospital Encounter [facility] [address] [place] [address] Josefa Rodríguez PA-C [address] [place] [address] Carolyn Cordero, TOMAS [address] [place] [address] Discharge Disposition: Home or Self Care (Routine [...] Sex Assigned at Female 12/15/2018 11:48 AM FLAT SCREEN WORKER Legal Sex Female 8:12 PM CDT Gender Identity Female 12/15/2018 11:48 AM FLAT SCREEN WORKER Sexual Orientation Straight 12/15/2018 11 :21 AM FLAT SCREEN WORKER Occupation Industry Job Start Date Job [...] MD, 06/18/2024 4:26 PM us Carolyn Cordero PATIENT SUPPORT ASSOCIATE GENERAL IMAGING Final Resu lt * XR [...] MD, 06/18/2024 4:26 PM us Carolyn Cordero PATIENT SUPPORT ASSOCIATE GENERAL IMAGING Final Resu lt documented in this encounter Visit Diagnoses Diagnosis Left foot pain Pain in limb Acute left ankle pain documented in this encounter Additional Health Concerns Assessment Noted Time PHQ-9 Depression Total Score: 15 023 10:20 AM FLAT SCREEN WORKER documented as of this encounter Care Teams Packing Line Operator Relationship Specialty Start Date End Date Josefa Rodríguez PA-C [address] [place] [address] PCP - General PHYSICIAN TRANSPORTATION PROGRAM DIRECTOR 08/12/23 documented as of this encounter
--- OUTSIDE RECORDS SUMMARY | 2024-10-22 20:54 | XMS_ITS | Encounter Summary ---
Author Organization [facility] Address [address] [place] [address]. [place], [place] [address] [place] [address] Care Team Providers Care Signs And Displays Salesperson Name Role Phone Josefa Rodríguez PA-C Primary Care Provider [phone] Reason for Visit * Reason Onset Date Comments Information 07/23/2024 Encounter Details Date Type Department Care Team (Late st Contact Info) Description 07/23/2024 Telephone [facility] Medical Group Family & Internal Medicine [facility] [id number] [place] [address] Josefa Rodríguez PA-C [address] [address] Information Social History Tobacco Use [...] Sex Assigned at Female 12/15/2018 11:48 AM BAIT MAKER Legal Sex Female 8:12 PM CDT Gender Identity Female 12/15/2018 11:48 AM BAIT MAKER Sexual Orientation Straight 12/15/2018 11 :21 AM BAIT MAKER Occupation Industry Job Start Date Job [...] Total Score: 15 11/26/ 023 10:20 AM BAIT MAKER documented as of this encounter Care Teams Signs And Displays Salesperson Relationship Specialty Start Date End Date Josefa Rodríguez PA-C [address] [place] [address] PCP - General PHYSICIAN VOCATIONAL INSTRUCTOR 08/12/23 documented as of this encounter
--- OUTSIDE RECORDS SUMMARY | 2024-10-22 20:55 | XMS_ITS | Encounter Summary ---
Author Organization [facility] Address [address] [place] [address]. [place], [place] [address] [place] [address] Care Team Providers Care Executive Coach Name Role Phone Akilah Gardner NP Primary [...] Sex Assigned at Female 12/15/2018 11:48 AM SPECIAL LIBRARY LIBRARIAN Legal Sex Female 8:12 PM CDT Gender Identity Female 12/15/2018 11:48 AM SPECIAL LIBRARY LIBRARIAN Sexual Orientation Straight 12/15/2018 11 :21 AM SPECIAL LIBRARY LIBRARIAN Occupation Industry Job Start Date Job End Date [employer] [facility] Not on file Not on [...] documented as of this encounter Care Teams Executive Coach Relationship Specialty Start Date End Date Akilah Gardner, CAMP HEAD COUNSELOR PCP - General NURSE PRACTITIONER 09/01/21 08/02/22 documented as of this encounter
--- OUTSIDE RECORDS SUMMARY | 2024-10-22 20:55 | XMS_ITS | Encounter Summary ---
Author Organization [facility] Address [address] [place] [address]. [place], [place] [address] [place] [address] Care Team Providers Care Director Community Health Nursing Name Role Phone Mera Trevizo Primary Care Provider [phone] Reason for Visit * Reason Onset Date Comments Consult 08/13/2022 Encounter Details Date Type Department Care Team ([facility] st Contact Info) Description 08/13/[address] [address] Jane Hernandez, RMA Consult Social History Tobacco [...] Sex Assigned at Female 12/15/2018 11:48 AM CNC SPECIALIST Legal Sex Female 8:12 PM CDT Gender Identity Female 12/15/2018 11:48 AM CNC SPECIALIST Sexual Orientation Straight 12/15/2018 11 :21 AM CNC SPECIALIST 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 No / Unsure 08/03/2022 10:00 AM CDT documented as of this encounter Progress Notes * ILAI Couch - 08/13/2022 1:45 PM CDT Returned call and left message to schedule cardiology consult per VAL Michael documented in this encounter Plan of Treatment Not on file documented as of this encounter Visit Diagnoses Not on filedocumented in this encounter Additional Health Concerns Assessment Noted Time PHQ-9 Depression Total Score: 17 022 10:11 AM CDT documented as of this encounter Care Teams Director Community Health Nursing Relationship Specialty [place] [address] [place] [address] PCP - General PHYSICIAN LCPC 08/03/22 08/11/23 documented as of this encounter
--- OUTSIDE RECORDS SUMMARY | 2024-10-22 20:55 | XMS_ITS | Encounter Summary ---
Author Organization [facility] Address [address] [place] [address]. [place], [place] [address] [place] [address] Care Team Providers Care Multi Site Leasing Consultant Name Role Phone Mera Trevizo Primary Care Provider [phone] Reason for Visit * Reason Onset Date Comments Medication Request 08/27/2022 Encounter Details Date Type Department Care Team (Late st Contact Info) Description 08/27/2022 Telephone [facility] Medical Group Family & Internal Medicine [facility] [address] [place] [address] [place] [address] [place] [address] Medication Request Social History Tobacco [...] Sex Assigned at Female 12/15/2018 11:48 AM FASTENER SEWING MACHINE OPERATOR Legal Sex Female 8:12 PM CDT Gender Identity Female 12/15/2018 11:48 AM FASTENER SEWING MACHINE OPERATOR Sexual Orientation Straight 12/15/2018 11 :21 AM FASTENER SEWING MACHINE OPERATOR Occupation Industry Job Start Date [...] - 08/27/2022 9:04 AM CDT Patient saw regulatory affairs manager on 08/24/22, Dr. Lane. He recommended that she contact her pcp to see if Mera would prescribe methimzaole and a beta agueda for graves disease, she states she cannot get into test conductor until 11/20/22. WG- Please call patient back. documented in this encounter Plan of Treatment Not on file documented as of this encounter Visit Diagnoses Not on filedocumented in this encounter Additional Health Concerns Assessment Noted Time PHQ-9 Depression Total Score: 17 022 10:11 AM CDT documented as of this encounter Care Teams Multi Site Leasing Consultant Relationship Specialty [place] [address] [place] [address] PCP - General PHYSICIAN SUPERVISOR DUMPING 08/03/22 08/11/23 documented as of this encounter
--- OUTSIDE RECORDS SUMMARY | 2024-10-22 20:55 | XMS_ITS | Encounter Summary ---
Author Organization [facility] Address [address] [place] [address]. [place], [place] [address] [place] [address] Care Team Providers Care Rattle Leak And Squeak Repairer Name Role Phone Mera Trevizo Primary Care Provider Encounter Details Date Type Department Care Team (Latest Contact Info) Description 08/03/2022 10:45 AM CDT - 08/03/2022 11:59 PM [facility] Encounter [facility] [address] [place] [address] [place] [address] [place], [place] [phone] Discharge Disposition: Home or Self Care (Routine [...] Sex Assigned at Female 12/15/2018 11:48 AM JOB INTERVIEWER Legal Sex Female 8:12 PM CDT Gender Identity Female 12/15/2018 11:48 AM JOB INTERVIEWER Sexual Orientation Straight 12/15/2018 11 :21 AM JOB INTERVIEWER Occupation Industry Job Start Date Job End [...] - 1.46 NG/DL 08/03/2022 1:45 PM CDT [facility] () [facility] 08/03/2022 11:0 4 AM CDT [facility] Final Result [facility] [address] [place] [address], [place] [phone] * (ABNORMAL) THYROID ANTIBODY PANEL (08/03/2022 11:04 AM CDT) THYROID PEROXIDASE MICROSOMAL AB 1,070(H) <9 IU/mL 08/06/2022 1:56 AM CDT [facility] [employer] L[facility] THYROGLOBULIN AB <1 <=1 IU/mL 08/06/20 1:56 AM CDT [employer]AR LLY Comment: Test Performed by [employer], [employer] [facility], [address] [place] [address] Cole Toribio M.D., Ph.D., Director of Laboratories , [facility] [id number] 08/03/2022 11:0 4 AM CDT [facility] Final Result Performing Organization Address [facility] de Phone Number Function Space [address] [address], [place] [phone] * (ABNORMAL) TSH W/REFLEX (08/03/2022 11:04 AM CDT) TSH <0.007(L) 0.358 - 3.74 uIU/ML 08/03/2022 12:55 PM CDT [facility] Comment: HIGH DOSES OF BIOTIN MAY INTERFERE WITH THIS TEST RESULT. CORRELATION TO CLINICAL HISTORY AND PRESENTATION RECOMMENDED. 08/03/2022 11:0 4 AM CDT us M[facility] NE[facility] LABORATORY Final Result [facility] [address] [place] [address], documented in this encounter Visit Diagnoses Diagnosis Anxiety Anxiety state, unspecified Low TSH level Nonspecific abnormal results of thyroid function study documented in this encounter Additional Health Concerns Assessment Noted Time PHQ-9 Depression Total Score: 17 08/03/ 022 10:11 AM CDT documented as of this encounter Care Teams Rattle Leak And Squeak Repairer Relationship Specialty [place] [address] [place] [address] PCP - General PHYSICIAN REGISTRATION COORDINATOR 08/03/22 08/11/23 documented as of this encounter
--- OUTSIDE RECORDS SUMMARY | 2024-10-22 20:55 | XMS_ITS | Encounter Summary ---
Author Organization [facility] Address [address] [place] [address]. [place], [place] [address] [place] [address] Care Team Providers Care Leasing Assistant Name Role Phone Yunior Hogan PA-C Primary Care Provider [phone] Reason for Referral * Consultation (Routine) - Closed Specialty Diagnoses / Procedures Referred By Hussein marrufo Referred To Contact GASTROENTEROLOGY Diagnoses Polyp of colon, unspecified part of colon, unspecified type Constipation, unspecified constipation type Screening for colon cancer Yunior Hogan PA-C [address] [facility] [address] [place] [address] Phone: tel: fax: Perla Serna MD [address] [facility] [address] [place] [id number] Phone: tel: fax: Referral ID Status Reason Start Date Expiration Date V isits Requested Visits Authorized [id number] Closed Specialty Services 08/28/2023 09/27/2024 100 100 * Consultation (Urgent) - Closed Specialty Diagnoses / Procedures Referred By Contnikhil t Referred To Contact Internal Medicine-Endocrinology, Diabetes & Metabolism Diagnoses Hyperthyroidism Procedures OFFICE/OUTPATIENT NEW LOW MDM 30-44 MINUTES OFFICE/OUTPT VISIT,NEW,LEVL IV OFFICE/OUTPT VISIT,NEW,LEVL V OFFICE/OUTPT VISIT,EST,LEVL III OFFICE/OUTPT VISIT,EST,LEVL IV OFFICE/OUTPT VISIT,EST,LEVL V Yunior Hogan PA-C [address] [facility] [address] [place] [address] Phone: tel: [place]: [place] [address] [facility] [address] [place] [address] Phone: tel: fax: Referral ID Status Reason Start Date Expiration Date V isits Requested Visits Authorized [id number] Closed Specialty Services 08/28/2023 09/27/2024 100 100 * Consultation (Routine) - Closed Specialty Diagnoses / Procedures Referred By Contact Referred To Contact CARDIOLOGY / Cardiology Diagnoses Palpitations Shortness of breath on exertion Procedures OFFICE/OUTPATIENT NEW LOW MDM 30-44 MINUTES OFFICE/OUTPT VISIT,NEW,LEVL IV OFFICE/OUTPT VISIT,NEW,LEVL V OFFICE/OUTPT VISIT,EST,LEVL III OFFICE/OUTPT VISIT,EST,LEVL IV OFFICE/OUTPT VISIT,EST,LEVL V Yunior Hogan PA-C [address] [facility] [address] [place] [address] Phone: tel: fax: [facility] [address] Phone: tel: fax: Referral ID Status Reason Start Date Expiration Date V isits Requested Visits Authorized [id number] Closed Specialty Services 08/28/2023 09/26/2024 99 99 Reason for Visit * Reason Comments Follow Up Transfer care from [facility]. No problems. Will need some referrals. Encounter Details Date Type Department Care Team (Late st Contact Info) Description 08/28/2023 9:00 AM CDT Office Visit [facility] Medical Group Family & Internal Medicine - [address] [address] Yunior Hogan PA-C [address] [facility] [address] [place] [address] Follow Up (Transfer care from [...] Sex Assigned at Female 12/15/2018 11:48 AM ROLL SCALE WORKER Legal Sex Female 8:12 PM CDT Gender Identity Female 12/15/2018 11:48 AM ROLL SCALE WORKER Sexual Orientation Straight 12/15/2018 11 :21 AM ROLL SCALE WORKER Occupation Industry Job Start Date Job End Date [employer] Not on file Not [...] for Visit: Follow Up (Transfer care from [place]. No problems. Will need some referrals. ) [...] POLYP OF COLON Ambulatory referral to Gastroenterology ([facility] Colonoscopy Screening) 6. Constipation, unspecified constipation type K59.00 CONSTIPATION Ambulatory referral to Gastroenterology ([facility] Colonoscopy Screening) 7. Screening for colon cancer Z12.11 PATIENT ENCOUNTER STATUS Ambulatory referral to Gastroenterology ([facility] Colonoscopy Screening) 8. Shortness of breath on [...] unspecified type - Ambulatory referral to Gastroenterology ([facility] Colonoscopy Screening) 6. Constipation, unspecified constipation type Recommend addition of MiraLAX daily to help with this. - Ambulatory referral to Gastroenterology ([facility] Colonoscopy Screening) 7. Screening for colon cancer - Ambulatory referral to Gastroenterology ([facility] Colonoscopy Screening) 8. Shortness of breath on [...] Portions of this note were dictated using [employer] speech recognition software. Occasional wrong wordor sound-alike [...] Hyperthyroidism Ordered: 08/28/2023 Ambulatory referral to Gastroenterology ([facility] Colonoscopy Screening) Referral Routine Polyp of colon, [...] Depression Total Score: 15 023 10:20 AM ROLL SCALE WORKER documented as of this encounter Care Teams Leasing Assistant Relationship Specialty Start Date End Date Yunior Hogan PA-C [address] [address] PCP - General PHYSICIAN MANAGER FEDERAL 08/12/23 documented as of this encounter
--- OUTSIDE RECORDS SUMMARY | 2024-10-22 20:55 | XMS_ITS | Encounter Summary ---
Author Organization [facility] Address [address] [place] [address]. [place], [place] [address] [place] [address] Care Team Providers Care Workshop Manager Name Role Phone Josefa Rodríguez PA-C Primary Care Provider [phone] Reason for Visit * Reason Onset Date Comments Referral 11/14/2023 Encounter Details Date Type Department Care Team (Late st Contact Info) Description 11/14/2023 Telephone [facility] [address] [place], [place] [id number] Deysi Thurston, PT [address] [place], [place] [phone] Referral Social History Tobacco Use Types Packs/Day [...] Sex Assigned at Female 12/15/2018 11:48 AM ICER HAND Legal Sex Female 8:12 PM CDT Gender Identity Female 12/15/2018 11:48 AM ICER HAND Sexual Orientation Straight 12/15/2018 11 :21 AM ICER HAND 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 is not contacted with [facility]. Left vm with patient that we are not contracted and unable to treat her. HAND documented in this encounter Plan of Treatment Not on file documented as of this encounter Visit Diagnoses Not on filedocumented in this encounter Additional Health Concerns Assessment Noted Time PHQ-9 Depression Total Score: 15 11/26/2 023 10:20 AM ICER HAND documented as of this encounter Care Teams Workshop Manager Relationship Specialty Start Date End Date Josefa Rodríguez PA-C [address] [facility] [address] [place] [address] PCP - General PHYSICIAN TRADES HELPER 08/12/23 documented as of this encounter
--- OUTSIDE RECORDS SUMMARY | 2024-10-22 20:55 | XMS_ITS | Encounter Summary ---
Author Organization [facility] Address [address] [place] [address]. [place], [place] [address] [place] [address] Care Team Providers Care Foreign Trade Teacher Name Role Phone Akilah Gardner SHOWROOM MANAGER Primary Care Provider Unavailabl e Reason for Visit * Reason Onset Date Comments Medication Problem 09/05/2021 Encounter Details Date Type Department Care Team (Late st Contact Info) Description 09/05/2021 Telephone [facility] Medical Group Family & Internal Medicine [address] [address] Akilah Gardner, OTONIEL Medication Problem [...] Sex Assigned at Female 12/15/2018 11:48 AM ARCHERY INSTRUCTOR Legal Sex Female 8:12 PM CDT Gender Identity Female 12/15/2018 11:48 AM ARCHERY INSTRUCTOR Sexual Orientation Straight 12/15/2018 11 :21 AM ARCHERY INSTRUCTOR Occupation Industry Job Start Date Job [...] 10:03 AM CDT Nurse called Lucía at [facility] and clarified. Chart updated. Insurance will [...] 3:01 PM CDT Please call lucía from [facility] @ [phone] She needing to know what dose you [...] documented as of this encounter Care Teams Foreign Trade Teacher Relationship Specialty Start Date End Date Akilah Gardner, SHOWROOM MANAGER PCP - General NURSE PRACTITIONER 09/01/21 08/02/22 documented as of this encounter
--- OUTSIDE RECORDS SUMMARY | 2024-10-22 20:55 | XMS_ITS | Encounter Summary ---
Author Organization [facility] Address [address] [place] [address]. [place], [place] [address] [place] [address] Care Team Providers Care Softball Umpire Name Role Phone Josefa Rodríguez PA-C Primary Care Provider [phone] Reason for Referral * Imaging (Routine) - Closed Specialty Diagnoses / Procedures Referred By Hussein t Referred To Contact CARDIOLOGY Diagnoses Palpitations Procedures CLINIC - OUTPATIENT EVENT RECORDER (ECG) UP TO 30 DAYS COMPLETE (Holter) Marcela Lane MD [facility]. [address] [address] Phone: tel: fax: Referral ID Status Reason Start Date Expiration Date Visits Re quested Visits Authorized [id number] Closed 09/06/2023 11/03/2023 1 1 Encounter Details Date Type Department Care Team (Late st Contact Info) Description 09/06/2023 Orders Only [facility], [facility] [address] [place], [place] [address] Marcela Lane MD [facility] [address] [place], [place] [id number] Social History Tobacco Use Types Packs/Day Years [...] Sex Assigned at Female 12/15/2018 11:48 AM HISTOLOGIC AIDE Legal Sex Female 8:12 PM CDT Gender Identity Female 12/15/2018 11:48 AM HISTOLOGIC AIDE Sexual Orientation Straight 12/15/2018 11 :21 AM HISTOLOGIC AIDE Occupation Industry Job Start Date Job End Date [employer] [facility] Not on file Not on file Not [...] Depression Total Score: 15 023 10:20 AM HISTOLOGIC AIDE documented as of this encounter Care Teams Softball Umpire Relationship Specialty Start Date End Date Josefa Rodríguez PA-C [address] [facility] [address] [place] [address] PCP - General PHYSICIAN VISITING NURSE 08/12/23 documented as of this encounter
--- OUTSIDE RECORDS SUMMARY | 2024-10-22 20:55 | XMS_ITS | Encounter Summary ---
Author Organization [facility] Address [address] [place] [address]. [place], [place] [address] [place] [address] Care Team Providers Care Compensator Worker Name Role Phone Josefa Rodríguez PA-C Primary Care Provider [phone] Reason for Visit * Reason Onset Date Comments Consult 08/29/2023 CONSULT & 30 DAY MCOT Encounter Details Date Type Department Care Team (Late st Contact Info) Description 08/29/2023 Telephone [facility], [facility] [address] [place], [place] [id number] Marcela [address] MD [facility]. [facility] [address] [place] [address] Consult (CONSULT & 30 DAY [...] Sex Assigned at Female 12/15/2018 11:48 AM TOPPER PRESS OPERATOR AUTOMATIC Legal Sex Female 8:12 PM CDT Gender Identity Female 12/15/2018 11:48 AM TOPPER PRESS OPERATOR AUTOMATIC Sexual Orientation Straight 12/15/2018 11 :21 AM TOPPER PRESS OPERATOR AUTOMATIC Occupation Industry Job Start Date Job End [...] Depression Total Score: 15 023 10:20 AM TOPPER PRESS OPERATOR AUTOMATIC documented as of this encounter Care Teams Compensator Worker Relationship Specialty Start Date End Date Josefa Rodríguez PA-C [address] [place] [address] PCP - General PHYSICIAN DIVISION ROADMASTER 08/12/23 documented as of this encounter
--- OUTSIDE RECORDS SUMMARY | 2024-10-22 20:55 | XMS_ITS | Encounter Summary ---
Author Organization [facility] Address [address] [place] [address]. [place], [place] [address] [place] [address] Care Team Providers Care Electric Sealing Machine Operator Name Role Phone Trenton Trevizo Primary Care Provider [phone] Reason for Visit * Imaging (Routine) - Closed Specialty Diagnoses / Procedures Referred By Contac t Referred To Contact RADIOLOGY Diagnoses Breast cancer screening by mammogram Procedures MG SCREENING [place] [address] [place] [address] Phone: tel: fax: Referral ID Status Reason Start Date Expiration Date Visits Re quested Visits Authorized [id number] Closed 08/27/2022 08/27/2023 1 1 Encounter Details Date Type Department Care Team (Latest Contact Info) Description 08/28/2022 2:17 PM CDT - 08/28/2022 11:59 PM CDT Hospital Encounter [facility] Mammography [address] [place] [address] [place] [address] [place], [place] [id number] Discharge Disposition: Home or Self Care (Routine [...] Sex Assigned at Female 12/15/2018 11:48 AM PARTITION ASSEMBLER Legal Sex Female 8:12 PM CDT Gender Identity Female 12/15/2018 11:48 AM PARTITION ASSEMBLER Sexual Orientation Straight 12/15/2018 11 :21 AM PARTITION ASSEMBLER Occupation Industry Job Start Date Job End [...] documented as of this encounter Care Teams Electric Sealing Machine Operator Relationship Specialty Start [place] [address] [place] [address] PCP - General PHYSICIAN RIBBON BLOCKER 08/03/22 08/11/23 documented as of this encounter
--- OUTSIDE RECORDS SUMMARY | 2024-10-22 20:55 | XMS_ITS | Encounter Summary ---
Author Organization [facility] Address [address] [place] [address]. [place], [place] [address] [place] [address] Care Team Providers Care T Rail Turner Name Role Phone Josefa Rodríguez PA-C Primary Care Provider [phone] Encounter Details Date Type Department Care Team (Late st Contact Info) Description 12/03/2023 WinFreeCandy Message Enc [facility] Family & Internal Medicine [address] [address] [facility] Provider medication Social History Tobacco Use Types [...] Assigned at Female 12/15/2018 11:48 AM RN BSN Legal Sex Female 8:12 PM CDT Gender Identity Female 12/15/2018 11:48 AM RN BSN Sexual Orientation Straight 12/15/2018 11 :21 AM RN BSN 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 Not on file Not on file documented as of this encounter Plan of Treatment Not on file documented as of this encounter Visit Diagnoses Not on filedocumented in this encounter Additional Health Concerns Assessment Noted Time PHQ-9 Depression Total Score: 15 11/26/ 023 10:20 AM RN BSN documented as of this encounter Care Teams T Rail Turner Relationship Specialty Start Date End Date Josefa Rodríguez PA-C [address] [place] [address] PCP - General PHYSICIAN CAROUSEL ATTENDANT 08/12/23 documented as of this encounter
--- OUTSIDE RECORDS SUMMARY | 2024-10-22 20:55 | XMS_ITS | Encounter Summary ---
Author Organization [facility] Address [address] [place] [address]. [place], [place] [address] [place] [address] Care Team Providers Care Mule Rider Name Role Phone Josefa Rodríguez PA-C Primary Care Provider [phone] Encounter Details Date Type Department Care Team (Late st Contact Info) Description 11/14/2023 Codeanywhere Message Enc [facility] Medical Group Family & Internal Medicine [facility] [address] [place] [address] Josefa Rodríguez PA-C [id number] [place] [address] Medication refill or different pain medication [...] Sex Assigned at Female 12/15/2018 11:48 AM PLATE FINISHER Legal Sex Female 8:12 PM CDT Gender Identity Female 12/15/2018 11:48 AM PLATE FINISHER Sexual Orientation Straight 12/15/2018 11 :21 AM PLATE FINISHER Occupation Industry Job Start Date Job End Date [employer] Not on file Not on file Not on file documented as of this encounter Progress Notes * Christy Reynaga RN - 12/12/2023 2:57 PM CST Letter sent to patient to call office. E FINISHER * Zarina Dougherty MA - 12/09/2023 1:25 PM CST 12/09/23 lmtcb on cj vm. E FINISHER * Zarina Dougherty MA - 12/03/2023 11:27 AM CST 12/03 lmtcb on vm. Will reach out also on my chart. E FINISHER * Marian Lynn RN - 11/29/2023 12:34 PM CST LMTCB E FINISHER * Josefa Rodríguez PA-C - 11/21/2023 2:00 PM CST I sent in gabapentin 100 mg nightly to be increased to twice daily in a few days if tolerated. Please let patient know this dose can be increased if needed. Thank you! E FINISHER * Marian Lynn RN - 11/21/2023 9:57 AM CST Pt would like gabapentin. Please send script E FINISHER * Marian Lynn RN - 11/18/2023 10:53 AM CST lmtcb E FINISHER * Josefa Rodríguez PA-C - 11/15/2023 9:53 [...] dysfunction develop recommend report to the ED. E FINISHER * Christy Reynaga RN - 11/15/2023 9:33 AM CST Please advise E FINISHER documented in this encounter Plan of Treatment Not on file documented as of this encounter Visit Diagnoses Diagnosis Acute right-sided low back pain with right-sided sciatica- Primary documented in this encounter Additional Health Concerns Assessment Noted Time PHQ-9 Depression Total Score: 15 11/26/2 023 10:20 AM PLATE FINISHER documented as of this encounter Care Teams Mule Rider Relationship Specialty Start Date End Date Josefa Rodríguez PA-C [address] [facility] [address] [place] [address] PCP - General PHYSICIAN GRADES 7 AND 8 TEACHER 08/12/23 documented as of this encounter
--- OUTSIDE RECORDS SUMMARY | 2024-10-22 20:55 | XMS_ITS | Encounter Summary ---
Author Organization [facility] Address [address] [place] [address]. [place], [place] [address] [place] [address] Care Team Providers Care Technical Mgr Name Role Phone Josefa Rodríguez PA-C Primary Care Provider [phone] Reason for Visit * Reason Onset Date Comments Holter Monitor 09/11/2023 * Imaging (Routine) - Closed Specialty Diagnoses / Procedures Referred By Hussein marrufo Referred To Contact CARDIOLOGY Diagnoses Palpitations Procedures CLINIC - OUTPATIENT EVENT RECORDER (ECG) UP TO 30 DAYS COMPLETE (Holter) Marcela Lane MD [facility]. [facility] [address] [place] [address] Phone: tel: fax: Referral ID Status Reason Start Date Expiration Date Visits Re quested Visits Authorized [id number] Closed 09/06/2023 11/03/2023 1 1 Encounter Details Date Type Department Care Team (Late st Contact Info) Description 09/11/2023 11:15 AM MANAGER NEONATAL Telephone [facility] [address] [place], [place] [phone] Marcela Lane MD [facility]. [facility] [address] [place] [address] Holter Monitor Social History Tobacco [...] Assigned at Female 12/15/2018 11:48 AM MANAGER NEONATAL Legal Sex Female 8:12 PM CDT Gender Identity Female 12/15/2018 11:48 AM MANAGER NEONATAL Sexual Orientation Straight 12/15/2018 11 :21 AM MANAGER NEONATAL Occupation Industry Job Start Date Job End [...] you want us to repeat the study. GER NEONATAL * Yady Price MA - 10/23/2023 4:10 PM CST After multiple failed attempts in contacting patient to retrieve device. Patient has been invoiced for failure to return Body Guardian. [phone] Ext [id number]. Thank You! GER NEONATAL * Luli Light - 09/11/2023 8:49 AM CST 30 Day BG Sent To Patient [phone] shipping [phone] return GER NEONATAL documented in this encounter Plan of Treatment Not on file documented as of this encounter Visit Diagnoses Diagnosis Palpitations documented in this encounter Additional Health Concerns Assessment Noted Time PHQ-9 Depression Total Score: 15 023 10:20 AM MANAGER NEONATAL documented as of this encounter Care Teams Technical Mgr Relationship Specialty Start Date End Date Josefa Rodríguez PA-C [address] [place] [address] PCP - General PHYSICIAN CIVIL ENGINEERING TEACHER 08/12/23 documented as of this encounter
--- OUTSIDE RECORDS SUMMARY | 2024-10-22 20:55 | XMS_ITS | Encounter Summary ---
Author Organization [facility] Address [address] [place] [address]. [place], [place] [address] [place] [address] Care Team Providers Care Dock Pumper Name Role Phone Mera Trevizo Primary Care Provider [phone] Reason for Visit * Reason Onset Date Comments Referral 03/13/2023 Encounter Details Date Type Department Care Team (Late st Contact Info) Description 03/13/2023 Telephone [facility] Medical Group Family & Internal Medicine [facility] [address] [place] [address] [place] [address] [place] [address] Referral Social History Tobacco Use [...] Assigned at Female 12/15/2018 11:48 AM BUSINESS APPLICATIONS ANALYST Legal Sex Female 8:12 PM CDT Gender Identity Female 12/15/2018 11:48 AM BUSINESS APPLICATIONS ANALYST Sexual Orientation Straight 12/15/2018 11 :21 AM BUSINESS APPLICATIONS ANALYST Occupation Industry Job Start Date Job [...] CDT We received a referral to the [facility] for the patient to [...] Depression Total Score: 15 023 10:20 AM BUSINESS APPLICATIONS ANALYST documented as of this encounter Care Teams Dock Pumper Relationship Specialty [place] [address] [place] [address] PCP - General PHYSICIAN HOME THEATER SPECIALIST 08/03/22 08/11/23 documented as of this encounter
--- OUTSIDE RECORDS SUMMARY | 2024-10-22 20:55 | XMS_ITS | Encounter Summary ---
Author Organization [facility] Address [address] [place] [address]. [place], [place] [address] [place] [address] Care Team Providers Care Parts Salvager Name Role Phone Mera Trevizo Primary Care Provider [phone] Encounter Details Date Type Department Care Team [...] Sex Assigned at Female 12/15/2018 11:48 AM BATTERY RECHARGER Legal Sex Female 8:12 PM CDT Gender Identity Female 12/15/2018 11:48 AM BATTERY RECHARGER Sexual Orientation Straight 12/15/2018 11 :21 AM BATTERY RECHARGER Occupation Industry Job Start Date Job End [...] documented as of this encounter Care Teams Parts Salvager Relationship Specialty [place] [address] [place] [address] PCP - General PHYSICIAN RFID STRATEGIST 08/03/22 08/11/23 documented as of this encounter
--- OUTSIDE RECORDS SUMMARY | 2024-10-22 20:55 | XMS_ITS | Encounter Summary ---
Author Organization [facility] Address [address] [place] [address]. [place], [place] [address] [place] [address] Care Team Providers Care Associate Store Leader Name Role Phone Mera Trevizo Primary Care Provider [phone] Encounter Details Date Type Department Care Team (Latest Contact Info) Description 03/12/2023 1:07 PM CDT - 03/12/2023 11:59 PM T Hospital Encounter [facility] [address] [place] [address] [place] [address] [place], [place] [phone] Discharge Disposition: Home or Self Care (Routine [...] Sex Assigned at Female 12/15/2018 11:48 AM COMPLIANCE ADVISOR Legal Sex Female 8:12 PM CDT Gender Identity Female 12/15/2018 11:48 AM COMPLIANCE ADVISOR Sexual Orientation Straight 12/15/2018 11 :21 AM COMPLIANCE ADVISOR Occupation Industry Job Start Date Job End Date [employer] Not on file Not on file Not [...] - 3.74 uIU/ML 03/12/2023 3:18 PM CDT [facility] Comment: HIGH DOSES OF BIOTIN MAY INTERFERE WITH THIS TEST RESULT. CORRELATION TO CLINICAL HISTORY AND PRESENTATION RECOMMENDED. 03/12/2023 9:46 AM CDT [facility] Final Result Performing Organization Address [facility] Co de Phone Number [facility] [address] [place] [address], [place] [phone] * (ABNORMAL) THYROXINE, FREE (FT4) (03/12/2023 9:46 AM CDT) FREE T4 3.74(H) 0.76 - 1.46 NG/DL 03/12/2023 3:18 PM CDT [facility] 03/12/2023 9:46 AM CDT [facility] Final Result Performing Organization Address [facility] Co de Phone Number [facility] [address] [place] [address], [place] [phone] documented in this encounter Visit Diagnoses Diagnosis Abnormal TSH Other abnormal clinical finding documented in this encounter Additional Health Concerns Assessment Noted Time PHQ-9 Depression Total Score: 15 023 10:20 AM COMPLIANCE ADVISOR documented as of this encounter Care Teams Associate Store Leader Relationship Specialty [place] [address] [place] [address] PCP - General PHYSICIAN ROCK BREAKER 08/03/22 08/11/23 documented as of this encounter
--- OUTSIDE RECORDS SUMMARY | 2024-10-22 20:55 | XMS_ITS | Encounter Summary ---
Author Organization [facility] Address [address] [place] [address]. [place], [place] [address] [place] [address] Care Team Providers Care Field Checker Name Role Phone Mera Trevizo Primary Care Provider [phone] Josefa Rodríguez PA-C Primary Care Provider [phone] Encounter Details Date Type Department Care Team (Late st Contact Info) Description 03/19/2023 [employer] Message Enc [facility] Medical Group Family & Internal Medicine [facility] [address] [place] [address] [place] [address] [place] [address] Antibiotic Social History Tobacco Use [...] Sex Assigned at Female 12/15/2018 11:48 AM PART TIME RECEPTIONIST Legal Sex Female 8:12 PM CDT Gender Identity Female 12/15/2018 11:48 AM PART TIME RECEPTIONIST Sexual Orientation Straight 12/15/2018 11 :21 AM PART TIME RECEPTIONIST Occupation Industry Job Start Date Job End Date [employer] mirtha Not on file Not on file [...] Depression Total Score: 15 023 10:20 AM PART TIME RECEPTIONIST documented as of this encounter Care Teams Field Checker Relationship Specialty [place] [address] [place] [address] PCP - General PHYSICIAN FIELD TRAFFIC INVESTIGATOR 08/03/22 08/11/23 Josefa Rodríguez PA-C [address] [address] [address] PCP - General PHYSICIAN FIELD TRAFFIC INVESTIGATOR 08/12/23 documented as of this encounter
--- OUTSIDE RECORDS SUMMARY | 2024-10-22 20:55 | XMS_ITS | Encounter Summary ---
Author Organization [facility] Address [address] [place] [address]. [place], [place] [address] [place] [address] Care Team Providers Care Lining Feller Name Role Phone Josefa Rodríguez PA-C Primary Care Provider [phone] Encounter Details Date Type Department Care Team [...] Sex Assigned at Female 12/15/2018 11:48 AM HOSPITAL ADMINISTRATIVE ASSISTANT Legal Sex Female 8:12 PM CDT Gender Identity Female 12/15/2018 11:48 AM HOSPITAL ADMINISTRATIVE ASSISTANT Sexual Orientation Straight 12/15/2018 11 :21 AM HOSPITAL ADMINISTRATIVE ASSISTANT Occupation Industry Job Start Date Job End Date [employer] Not on file Not on file Not on file documented as of this encounter Plan of Treatment Not on file documented as of this encounter Visit Diagnoses Not on filedocumented in this encounter Additional Health Concerns Assessment Noted Time PHQ-9 Depression Total Score: 15 11/26/ 023 10:20 AM HOSPITAL ADMINISTRATIVE ASSISTANT documented as of this encounter Care Teams Lining Feller Relationship Specialty Start Date End Date Josefa Rodríguez PA-C [address] [place] [address] PCP - General PHYSICIAN TECHNICAL SPECIALIST 08/12/23 documented as of this encounter
--- OUTSIDE RECORDS SUMMARY | 2024-10-22 20:55 | XMS_ITS | Encounter Summary ---
Author Organization [facility] Address [address] [place] [address]. [place], [place] [address] [place] [address] Care Team Providers Care Mixing Machine Tender Cork Gasket Name Role Phone Mera Trevizo Primary Care Provider [phone] Reason for Visit * Reason Onset Date Comments Consult 08/07/2022 Encounter Details Date Type Department Care Team ([facility] st Contact Info) Description 08/07/[address] [address] Jane Hernandez, RMA Consult Social History Tobacco [...] Sex Assigned at Female 12/15/2018 11:48 AM PARAPLANNER Legal Sex Female 8:12 PM CDT Gender Identity Female 12/15/2018 11:48 AM PARAPLANNER Sexual Orientation Straight 12/15/2018 11 :21 AM PARAPLANNER Occupation Industry Job Start Date Job End [...] documented as of this encounter Care Teams Mixing Machine Tender Cork Gasket Relationship Specialty [place] [address] [place] [address] PCP - General PHYSICIAN CERAMIC PAINTER 08/03/22 08/11/23 documented as of this encounter
--- OUTSIDE RECORDS SUMMARY | 2024-10-22 20:55 | XMS_ITS | Encounter Summary ---
Author Organization [facility] Address [address] [place] [address]. [place], [place] [address] [place] [address] Care Team Providers Care Office Equipment Mechanic Name Role Phone Mera Trevizo Primary Care Provider [phone] Reason for Visit * Reason Onset Date Comments Other 08/03/2022 Encounter Details Date Type Department Care Team (Late st Contact Info) Description 08/03/[address] [address] [place] [address] [place], [place] [phone] Other Social History Tobacco Use Types Packs/Day [...] Sex Assigned at Female 12/15/2018 11:48 AM ELECTRICAL ASSEMBLIES SUPERVISOR Legal Sex Female 8:12 PM CDT Gender Identity Female 12/15/2018 11:48 AM ELECTRICAL ASSEMBLIES SUPERVISOR Sexual Orientation Straight 12/15/2018 11 :21 AM ELECTRICAL ASSEMBLIES SUPERVISOR Occupation Industry Job Start Date Job [...] documented as of this encounter Care Teams Office Equipment Mechanic Relationship Specialty [place] [address] [place] [address] PCP - General PHYSICIAN MUSIC PROFESSIONALS 08/03/22 08/11/23 documented as of this encounter
--- OUTSIDE RECORDS SUMMARY | 2024-10-22 20:55 | XMS_ITS | Encounter Summary ---
Author Organization [facility] Address [address] [place] [address]. [place], [place] [address] [place] [address] Care Team Providers Care Nuclear Waste Process Operator Name Role Phone Mera Trevizo Primary Care Provider + [phone] Reason for Referral * Consultation (Urgent) - Canceled Specialty Diagnoses / Procedures Referred By Contnikhil t Referred To Contact ENDOCRINOLOGY Diagnoses Hyperthyroidism Procedures OFFICE/OUTPT VISIT,NEW,LEVL III OFFICE/OUTPT VISIT,NEW,LEVL IV OFFICE/OUTPT VISIT,NEW,LEVL V OFFICE/OUTPT VISIT,EST,LEVL III OFFICE/OUTPT VISIT,EST,LEVL IV OFFICE/OUTPT VISIT,[place] [address] [place] [address] Phone: tel: fax: [facility] Diabetes and Endocrinology - [place] [address] Phone: tel: fax: Referral ID Status Reason Start Date Expiration Date V isits Requested Visits Authorized [id number] Canceled 09/12/2022 10/13/2023 100 100 Scheduling Instructions Patient had previous referral but is having advancing symptoms . Would like to see if she can be seen sooner LOADER Reason for Visit * Reason Comments Fever Sob, chills, tachy 1 20 at rest, chest pain at times. Sx today Encounter Details Date Type Department Care Team (Late st Contact Info) Description 09/12/2022 3:40 PM HOOK LOADER Telemedicine [facility] Family & Internal Medicine [facility] [address] [place] [address] [place] [address] [place] [address] Fever (Sob, chills, tachy 120 [...] Sex Assigned at Female 12/15/2018 11:48 AM HOOK LOADER Legal Sex Female 8:12 PM CDT Gender Identity Female 12/15/2018 11:48 AM HOOK LOADER Sexual Orientation Straight 12/15/2018 11 :21 AM HOOK LOADER Occupation Industry Job Start Date Job End Date [employer] Not on file Not on file Not on file COVID-19 Exposure Response Date Recorded In the last 10 days, have yo u been in contact with someone who was confirmed or suspected to have Coronavirus/COVID-19? No / Unsure 09/12/2022 7:38 AM HOOK LOADER documented as of this encounter Progress Notes [...] that the same confidentiality and health information clerk practices apply. The patient joined the video visit from Home. I completed the virtual visit from Home. [facility] MA: June . Total Time Spent in Minutes: 24 minutes History of Present Illness: HPI Frances Maguire is a 46-year-old female here for Video visit thru [facility] for evaluation of ongoing symptoms of feeling [...] Portions of this note were dictated using [employer] speech recognition software. Occasional wrong wordor sound-alike substitutions may have occurred due to the inherent limitations of voice recognition software. Please read the chart carefully and recognize, using context, where the substitutions may have occurred. Mera Trevizo PA-C evaluated and Dr Yrn Padilla reviewed and agrees with plan. Cosigned by Yrn Padilla MD at 09/13/2022 7:08 AM HOOK LOADER LOADER LOADER documented in this encounter Plan of Treatment Scheduled Referrals Name Type Priority Associated Diagnoses Orde r Schedule Ambulatory referral to Endocrinology (OTHER) Referral OUMAR Hyperthyroidism Ordered: 09/12/2022 documented as of this encounter Procedures Procedure Name Priority Date/Time Associated Diagnosis Comments VENIPUNC ARM DRAW Routine 09/12/2022 10: 30 AM HOOK LOADER Palpitations Lipid screening Other fatigue Abnormal TSH CORONAVIRUS (COVID-19) INFLUENZA A & B ANTIGEN IA PANEL Routine 09/12/2022 Other fatigue Upper respiratory tract infection, unspecified type Suspected COVID-19 virus infection RAPID STREP A Routine 09/12/2022 Sore throat documented in this encounter Results * (ABNORMAL) THYROXINE, FREE (FT4) (09/12/2022 10:24 AM HOOK LOADER) FREE T4 3.11(H) 0.76 - 1.46 NG/DL 09/12/2022 2:09 PM HOOK LOADER [facility] 09/12/2022 10:2 4 AM HOOK LOADER us Mera NEAL LABORATORY Final Result Performing Organization Address [facility] Co de Phone Number [facility] [address] [place] [address], [place] [phone] * (ABNORMAL) THYROID STIM HORMONE, TSH (09/12/2022 10:24 AM HOOK LOADER) TSH 0.002(L) 0.358 - 3.74 uIU/ML 09/12/2022 2:09 PM HOOK LOADER [facility] Comment: HIGH DOSES OF BIOTIN MAY INTERFERE WITH THIS TEST RESULT. CORRELATION TO CLINICAL HISTORY AND PRESENTATION RECOMMENDED. 09/12/2022 10:2 4 AM HOOK LOADER us Mera NEAL LABORAT[facility] Final Result Performing Organization Address City[facility]/ZIP Co de Phone Number [facility] [address] [place] [address], * (ABNORMAL) LIPID PANEL (09/12/2022 10:24 AM [facility]) [facility] Signature CHOLESTEROL 102 <200.0 MG/DL 09/12/2022 2:09 PM [facility] TRIGLYCERIDES 168(H) <150 MG/DL 09/12/2022 2:09 PM [facility] HDL 42 >40.0 MG/DL 09/12/2022 2:09 PM [facility] LDL (CALCULATED) 26 <100 MG/DL 09/12/2022 2:09 PM [facility] NON HDL CHOLESTEROL 60 <130 MG/DL 09/12/2022 2:09 PM [facility] CHOL/HDL RATIO 2.4 0.0 - 4.5 09/12/2022 2:09 PM [facility] VLDL CALCULATION 34 5 - 55 MG/DL 09/12/2022 2:09 PM [facility] LIPID INTERPRETATION 09/12/2022 2:09 PM [facility] Comment: NIH CONCENSUS REPORT RECOMMENDATIONS: [...] ? >=160 ?>=130 09/12/2022 10:2 4 AM HOOK LOADER us Mera NEAL LABORATORY Final Result [facility] [address] [place] [address], * (ABNORMAL) COMPREHENSIVE METABOLIC PANEL (09/12/2022 10:24 AM HOOK LOADER) GLUCOSE 123(H) 70 - 99 MG/DL 09/12/2022 2:09 PM [facility] BUN 9 7 - 18 MG/DL 09/12/2022 2:09 PM [facility] CREATININE S/P/B 0.46(L) 0.55 - 1.02 MG/DL 09/12/2022 2:09 PM [facility] SODIUM S/P/B 142 136 - 145 MMOL/L 09/12/2022 2:09 PM [facility] POTASSIUM S/P/B 4.0 3.5 - 5.1 MMOL/L 09/12/2022 2:09 PM [facility] CHLORIDE S/P/B 107 100 - 108 MMOL/L 09/12/2022 2:09 PM [facility] CO2 27.7 21 - 32 MMOL/L 09/12/2022 2:09 PM [facility] CALCIUM S/P/B 8.7 8.5 - 10.1 MG/DL 09/12/2022 2:09 PM [facility] BILIRUBIN TOTAL S/P/B 0.7 0.2 - 1.2 MG/DL 09/12/2022 2:09 PM [facility] TOTAL PROTEIN S/P/B 6.2(L) 6.4 - 8.2 G/DL 09/12/2022 2:09 PM [facility] ALBUMIN S/P/B 3.3(L) 3.4 - 5.0 G/DL 09/12/2022 2:09 PM [facility] AST 18 15 - 37 U/L 09/12/2022 2:09 PM [facility] ALT 29 14 - 55 U/L 09/12/2022 2:09 PM [facility] ALKALINE PHOSPHATASE S/P/B 94 50 - 136 U/L 09/12/2022 2:09 PM [facility] ANION GAP 7.3 5 - 15 MMOL/L 09/12/2022 2:09 PM [facility] BUN CREATININE RATIO 19.6 6 - 26 09/12/2022 2:09 PM [facility] A/G RATIO 1.1 1.0 - 2.0 RATIO 09/12/2022 2:09 PM [facility] GFR ESTIMATE >90 >90 ML/MIN/1.7 3 M2 09/12/2022 2:09 PM [facility] Comment: NOTE: eGFR is not calculated for patients <18 years of age. This is an estimated GFR calculation using the new CKD EPI creatinine equation without race and so does not require a correction factor for race. This estimated GFR should not be used for calculating drug doses. 09/12/2022 10:2 4 AM HOOK LOADER M[facility] Final Result [facility] [address] [place] [address], * (ABNORMAL) CBC W/DIFF AUTOMATED (09/12/2022 10:24 AM HOOK LOADER) WBC 4.6 4.4 - 11.0 x10'3/uL 09/12/2022 1:10 PM [facility] RBC 4.13(L) 4.50 - 5.10 x10'6/uL 09/12/2022 1:10 PM [facility] HGB 12.2(L) 12.3 - 15.3 G/DL 09/12/2022 1:10 PM [facility] HCT 36.8 35.9 - 44.6 % 09/12/2022 1:10 PM [facility] MCV 89.1 80.0 - 96.0 FL 09/12/2022 1:10 PM [facility] MCH 29.5 25.3 - 30.9 PG 09/12/2022 1:10 PM [facility] MCHC 33.2 31.0 - 34.1 G/DL 09/12/2022 1:10 PM [facility] RDW 12.3(L) 12.4 - 15.1 % 09/12/2022 1:10 PM [facility] PLT 132(L) 151 - 353 x10'3/uL 09/12/2022 1:10 PM [facility] MPV 12.3(H) 9.6 - 12.0 FL 09/12/2022 1:10 PM [facility] RBC MORPHOLOGY NORMAL 09/12/2022 1:10 PM [facility] PLT MORPH. NORMAL 09/12/2022 1:10 PM [facility] WBC MORPHOLOGY NORMAL 09/12/2022 1:10 PM [facility] LYMPHOCYTES % 32.0 15.8 - 45.0 % 09/12/2022 1:10 PM [facility] NEUTROPHILS % 56.0 42.1 - 71.9 % 09/12/2022 1:10 PM [facility] MONOCYTES % 9.6 5.7 - 12.5 % 09/12/2022 1:10 PM [facility] EOSINOPHILS 1.8 0.0 - 5.6 % 09/12/2022 1:10 PM [facility] BASOPHILS 0.4 0.0 - 1.3 % 09/12/2022 1:10 PM [facility] ABS. NEUTROPHILS 2.55 1.40 - 6.00 x10'3/uL 09/12/2022 1:10 PM [facility] IMMATURE GRANS % 0.2 0.0 - 0.5 % 09/12/2022 1:10 PM [facility] ABS. LYMPHOCYTES 1.46 0.80 - 4.70 x10'3/uL 09/12/2022 1:10 PM [facility] 09/12/2022 10:2 4 AM HOOK LOADER us Mera D Billhartz PA LABORATORY Final Result [facility] [address] [place] [address], [place] [phone] * RAPID STREP A (09/12/2022) RAPID STREP TEST NEGATIVE NEGATIVE [id number], [place] Internal Control: VALID VALID [id number], [place] STRUCTURE OF ANTERIOR PORTION OF NECK / Unknown 09/12/2022 us Mera NEAL MICROBIOLOGY - GENERAL ORDER ELIZABETH Final Result Performing Organization Address [facility] Co de Phone Number [phone], [place] [address] [place] [address], [place] [phone] * CORONAVIRUS (COVID-19) INFLUENZA A & B ANTIGEN IA PANEL (09/12/2022) CORONAVIRUS ANTIGEN IA NEGATIVE NEGATIVE [id number], [place] INFLUENZA A NEGATIVE NEGATIVE [id number] B NEGATIVE NEGATIVE [id number], [facility] Internal Control: VALID VALID [id number], [place] NASAL STRUCTURE / Unknown 09/12/2022 us Mera NEAL MICROBIOLOGY - GENERAL ORDER ELIZABETH Final Result [id number], [place] [address] [place] [address], [place] [phone] documented in this encounter Visit Diagnoses Diagnosis [...] Rule Out 09/12/2022 09/12/2022 09/13/2022 5:41 PM HOOK LOADER Assessment Noted Time PHQ-9 Depression Total Score: 17 022 10:11 AM CDT documented as of this encounter Care Teams Nuclear Waste Process Operator Relationship Specialty [place] [address] [place] [address] PCP - General PHYSICIAN GRINDER SET UP OPERATOR 08/03/22 08/11/23 documented as of this encounter
--- OUTSIDE RECORDS SUMMARY | 2024-10-22 20:55 | XMS_ITS | Encounter Summary ---
Author Organization [facility] Address [address] [place] [address]. [place], [place] [address] [place] [address] Care Team Providers Care Creative/Art Director Name Role Phone Mera Trevizo Primary Care Provider [phone] Reason for Visit * Reason Comments Fever Highest 102 F. Nausea Sx started 11/18 Headache Body Aches Encounter Details Date Type Department Care Team (Late st Contact Info) Description 11/26/2022 10:00 AM IT DESKTOP SUPPORT SPECIALIST Office Visit [facility] Family & Internal Medicine [facility] [address] [place] [address] Mera Trevizo [place] [address] [place] [address] Fever (Highest 102 F.); Nausea (Sx [...] Sex Assigned at Female 12/15/2018 11:48 AM IT DESKTOP SUPPORT SPECIALIST Legal Sex Female 8:12 PM CDT Gender Identity Female 12/15/2018 11:48 AM IT DESKTOP SUPPORT SPECIALIST Sexual Orientation Straight 12/15/2018 11 :21 AM IT DESKTOP SUPPORT SPECIALIST Occupation Industry Job Start Date Job End Date [employer] Not on file Not on file Not on file COVID-19 Exposure Response Date Recorded In the last 10 days, have yo u been in contact with someone who was confirmed or suspected to have Coronavirus/COVID-19? No / Unsure 11/26/2022 9:58 AM IT DESKTOP SUPPORT SPECIALIST documented as of this encounter Last Filed Vital Signs Vital Sign Reading Time Taken Comments Blood Pressure 128/84 11/26/2022 10:15 AM IT DESKTOP SUPPORT SPECIALIST Pulse 92 11/26/2022 10:15 AM IT DESKTOP SUPPORT SPECIALIST Temperature 37.1 ??C (98.7 ??F) 11/26/2022 10:[address] Respiratory Rate 22 11/26/2022 10:15 AM IT DESKTOP SUPPORT SPECIALIST Oxygen Saturation 98% 11/26/2022 10:15 AM IT DESKTOP SUPPORT SPECIALIST Inhaled Oxygen Concentration - - Weight 69.4 kg (153 lb) 11/26/2022 10:15 AM IT DESKTOP SUPPORT SPECIALIST Height 167.6 cm (5' 6 ) 11/26/2022 10:15 AM IT DESKTOP SUPPORT SPECIALIST Body Mass Index 24.69 11/26/2022 10:15 AM IT DESKTOP SUPPORT SPECIALIST documented in this encounter Patient Instructions * Attachments The following attachments cannot be sent through Care Everywhere. * Sinusitis, Adult ED ([place]) documented in this encounter Progress Notes * [...] Portions of this note were dictated using [employer] speech recognition software. Occasional wrong wordor sound-alike substitutions may have occurred due to the inherent limitations of voice recognition software. Please read the chart carefully and recognize, using context, where the substitutions may have occurred. Mera Trevizo PA-C evaluated and Dr Yrn Padilla reviewed and agrees with plan. Cosigned by Yrn Padilla MD at 11/26/2022 7:41 PM IT DESKTOP SUPPORT SPECIALIST DESKTOP SUPPORT SPECIALIST DESKTOP SUPPORT SPECIALIST documented in this encounter Plan of Treatment Not on file documented as of this encounter Procedures Procedure Name Priority Date/Time Associated Diagnosis Comments CORONAVIRUS (COVID-19) INFLUENZA A & B ANTIGEN IA PANEL Routine 11/26/2022 Suspected COVID-19 virus infection documented in this encounter Results * CORONAVIRUS (COVID-19) INFLUENZA A & B ANTIGEN IA PANEL (11/26/2022) CORONAVIRUS ANTIGEN IA NEGATIVE NEGATIVE [id number], [place] INFLUENZA A NEGATIVE NEGATIVE [id number], [place] INFLUENZA B NEGATIVE NEGATIVE [id number]: VALID VALID [id number] NAS[facility]UCTURE / Unknown 11/26/2022 us Mera NEAL MICROBIOLOGY - GENERAL ORDER ELIZABETH Final Result [id number] [address], [place] [address] [place] [address], [place] [phone] documented in this encounter Visit Diagnoses Diagnosis Suspected COVID-19 virus infection- Primary Acute non-recurrent frontal sinusitis documented in this encounter Additional Health Concerns Infection Onset Date Last Indicated Resolved Time COVID-19 Rule Out 11/26/2022 11/26/2022 11/26/2022 10:46 AM IT DESKTOP SUPPORT SPECIALIST Assessment Noted Time PHQ-9 Depression Total Score: 15 023 10:20 AM IT DESKTOP SUPPORT SPECIALIST documented as of this encounter Care Teams Creative/Art Director Relationship Specialty [place] [address] [place] [address] PCP - General PHYSICIAN PAVING FOREMAN 08/03/22 08/11/23 documented as of this encounter
--- OUTSIDE RECORDS SUMMARY | 2024-10-22 20:55 | XMS_ITS | Encounter Summary ---
Author Organization [facility] Address [address] [place] [address]. [place], [place] [address] [place] [address] Care Team Providers Care Quiller Tender Name Role Phone Mera Trevizo Primary Care Provider [phone] Encounter Details Date Type Department Care Team (Late st Contact Info) Description 03/15/2023 Orders Only [facility] Medical Group Family & Internal Medicine - [place] [address] [place] [address] [place] [address] [place] [address] Social History Tobacco Use Types [...] Sex Assigned at Female 12/15/2018 11:48 AM TWISTING MACHINE OPERATOR Legal Sex Female 8:12 PM CDT Gender Identity Female 12/15/2018 11:48 AM TWISTING MACHINE OPERATOR Sexual Orientation Straight 12/15/2018 11 :21 AM TWISTING MACHINE OPERATOR Occupation Industry Job Start Date [...] Depression Total Score: 15 023 10:20 AM TWISTING MACHINE OPERATOR documented as of this encounter Care Teams Quiller Tender Relationship Specialty [place] [address] [place] [address] PCP - General PHYSICIAN PAY STATION DEPARTMENT MANAGER 08/03/22 08/11/23 documented as of this encounter
--- OUTSIDE RECORDS SUMMARY | 2024-10-22 20:55 | XMS_ITS | Encounter Summary ---
Author Organization [facility] Address [address] [place] [address]. [place], [place] [address] [place] [address] Care Team Providers Care Ecology Teacher Name Role Phone Josefa Rodríguez PA-C Primary Care Provider [phone] Encounter Details Date Type Department Care Team (Late st Contact Info) Description 01/08/2024 Taquilla Message Enc [facility] Group Family & Internal Medicine [address] [address] [facility] Provider medication/follow up appointment Social History [...] Sex Assigned at Female 12/15/2018 11:48 AM FLATWORK SUPERVISOR Legal Sex Female 8:12 PM CDT Gender Identity Female 12/15/2018 11:48 AM FLATWORK SUPERVISOR Sexual Orientation Straight 12/15/2018 11 :21 AM FLATWORK SUPERVISOR 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
--- OUTSIDE RECORDS SUMMARY | 2024-10-22 20:55 | XMS_ITS | Encounter Summary ---
Author Organization [facility] Address [address] [place] [address]. [place], [place] [address] [place] [address] Care Team Providers Care Metal Casting Trades Worker Name Role Phone Akilah Gardner NP Primary Care Provider Mera Cesar Primary Care Provider [phone] Josefa RodríguezC Primary Care Provider [phone] Encounter Details Date Type Department Care Team (Late st Contact Info) Description 11/30/2021 [employer] Message Enc [facility] Medical Group Family & Internal Medicine [facility] [address] [place] [address] Akilah Gardner NP Social History Tobacco [...] Sex Assigned at Female 12/15/2018 11:48 AM MULTIFOLD OPERATOR Legal Sex Female 8:12 PM CDT Gender Identity Female 12/15/2018 11:48 AM MULTIFOLD OPERATOR Sexual Orientation Straight 12/15/2018 11 :21 AM MULTIFOLD OPERATOR 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 Not on file Not on file documented as of this encounter Plan of Treatment Not on file documented as of this encounter Visit Diagnoses Not on filedocumented in this encounter Additional Health Concerns Infection Onset Date Last Indicated Resolved Time COVID-19 Rule Out 09/12/2022 09/12/2022 09/12/2022 10:26 AM MULTIFOLD OPERATOR COVID-19 Rule Out 09/12/2022 09/12/2022 09/12/2022 1:04 PM MULTIFOLD OPERATOR COVID-19 Rule Out 09/12/2022 09/12/2022 09/13/2022 5:41 PM MULTIFOLD OPERATOR COVID-19 Rule Out 11/26/2022 11/26/2022 11/26/2022 10:46 AM MULTIFOLD OPERATOR Assessment Noted Time PHQ-9 Depression Total Score: 14 021 8:58 AM CDT documented as of this encounter Care Teams Metal Casting Trades Worker Relationship Specialty Start Date End Date Akilah Gardner NP PCP - General NURSE PRACTITIONER 09/01/21 08/02/22 [place] [address] [place] [address] PCP - General PHYSICIAN PERFORMANCE INSTRUCTOR 08/03/22 08/11/23 Josefa Rodríguez PA-C [address] [address] PCP - General PHYSICIAN PERFORMANCE INSTRUCTOR 08/12/23 documented as of this encounter
--- OUTSIDE RECORDS SUMMARY | 2024-10-22 20:55 | XMS_ITS | Encounter Summary ---
Author Organization [facility] Address [address] [place] [address]. [place], [place] [address] [place] [address] Care Team Providers Care Mobile Mechanic Name Role Phone Mera Trevizo Primary Care Provider [phone] Reason for Visit * Reason Onset Date Comments Referral 06/24/2023 Referral request Encounter Details Date Type Department Care Team (Late st Contact Info) Description 06/24/2023 [facility] Diabetes and Endocrinology - [address] [address] Dre Munoz MD Referral (Referral request ) [...] Sex Assigned at Female 12/15/2018 11:48 AM ELEVATOR REPAIRER HELPER Legal Sex Female 8:12 PM CDT Gender Identity Female 12/15/2018 11:48 AM ELEVATOR REPAIRER HELPER Sexual Orientation Straight 12/15/2018 11 :21 AM ELEVATOR REPAIRER HELPER 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 Munoz will no longer be with the practice. Please contact PCP to be referred to another practice. * Yoselyn Castro - 06/24/2023 3:41 PM CDT Patient called would like a call back to schedule referral if you can call her back anytime after 1:30pm Callback@ [phone] documented in this encounter Plan of Treatment Not on file documented as of this encounter Visit Diagnoses Not on filedocumented in this encounter Additional Health Concerns Assessment Noted Time PHQ-9 Depression Total Score: 15 023 10:20 AM ELEVATOR REPAIRER HELPER documented as of this encounter Care Teams Mobile Mechanic Relationship Specialty [place] [address] [place] [address] PCP - General PHYSICIAN UPHOLSTERY SEWER 08/03/22 08/11/23 documented as of this encounter
--- OUTSIDE RECORDS SUMMARY | 2024-10-22 20:55 | XMS_ITS | Encounter Summary ---
Author Organization [facility] Address [address] [place] [address]. [place], [place] [address] [place] [address] Care Team Providers Care Rural Mail Contractor Name Role Phone Mera Trevizo Primary Care Provider + [phone] Encounter Details Date Type Department Care Team [...] Sex Assigned at Female 12/15/2018 11:48 AM CODER OPERATOR Legal Sex Female 8:12 PM CDT Gender Identity Female 12/15/2018 11:48 AM CODER OPERATOR Sexual Orientation Straight 12/15/2018 11 :21 AM CODER OPERATOR Occupation Industry Job Start Date Job End Date [employer] [facility] Not on file Not on file Not on file COVID-19 Exposure Response Date Recorded In the last 10 days, have yo u been in contact with someone who was confirmed or suspected to have Coronavirus/COVID-19? No / Unsure 09/12/2022 7:38 AM CODER OPERATOR documented as of this encounter Plan of Treatment Not on file documented as of this encounter Visit Diagnoses Not on filedocumented in this encounter Additional Health Concerns Infection Onset Date Last Indicated Resolved Time COVID-19 Rule Out 09/12/2022 09/12/2022 09/12/2022 10:26 AM CODER OPERATOR COVID-19 Rule Out 09/12/2022 09/12/2022 09/12/2022 1:04 PM CODER OPERATOR COVID-19 Rule Out 09/12/2022 09/12/2022 09/13/2022 5:41 PM CODER OPERATOR Assessment Noted Time PHQ-9 Depression Total Score: 17 022 10:11 AM CDT documented as of this encounter Care Teams Rural Mail Contractor Relationship Specialty [place] [address] [place] [address] PCP - General PHYSICIAN FIXED CAPITAL CLERK 08/03/22 08/11/23 documented as of this encounter
--- OUTSIDE RECORDS SUMMARY | 2024-10-22 20:55 | XMS_ITS | Encounter Summary ---
Author Organization [facility] Address [address] [place] [address]. [place], [place] [address] [place] [address] Care Team Providers Care Air Quality Chemist Name Role Phone Mera Trevizo Primary Care Provider + [phone] Encounter Details Date Type Department Care Team [...] Sex Assigned at Female 12/15/2018 11:48 AM KNIFE CUTTER Legal Sex Female 8:12 PM CDT Gender Identity Female 12/15/2018 11:48 AM KNIFE CUTTER Sexual Orientation Straight 12/15/2018 11 :21 AM KNIFE CUTTER Occupation Industry Job Start Date Job End Date [employer] [facility] Not on file Not on file Not on file COVID-19 Exposure Response Date Recorded In the last 10 days, have yo u been in contact with someone who was confirmed or suspected to have Coronavirus/COVID-19? No / Unsure 11/26/2022 9:58 AM KNIFE CUTTER documented as of this encounter Plan of Treatment Not on file documented as of this encounter Visit Diagnoses Not on filedocumented in this encounter Additional Health Concerns Infection Onset Date Last Indicated Resolved Time COVID-19 Rule Out 11/26/2022 11/26/2022 11/26/2022 10:46 AM KNIFE CUTTER Assessment Noted Time PHQ-9 Depression Total Score: 15 023 10:20 AM KNIFE CUTTER documented as of this encounter Care Teams Air Quality Chemist Relationship Specialty [place] [address] [place] [address] PCP - General PHYSICIAN NUTRITION COORDINATOR 08/03/22 08/11/23 documented as of this encounter
--- OUTSIDE RECORDS SUMMARY | 2024-10-22 20:55 | XMS_ITS | Encounter Summary ---
Author Organization [facility] Address [address] [place] [address]. [place] [id number] [place] [address] Care Team Providers Care Band Sawing Machine Operator Name Role Phone Mera Trevizo Primary Care Provider [phone] Josefa Rodríguez PA-C Primary Care Provider [phone] Encounter Details Date Type Department Care Team (Late st Contact Info) Description 06/28/2023 Terrafugia Message Enc [facility] Medical [facility] Family & Internal Medicine [facility] [address] [place] [phone] Mir, [facility] Provider Estalbish with a new provider Social [...] Sex Assigned at Female 12/15/2018 11:48 AM TRIMMER TAILER Legal Sex Female 8:12 PM CDT Gender Identity Female 12/15/2018 11:48 AM TRIMMER TAILER Sexual Orientation Straight 12/15/2018 11 :21 AM TRIMMER TAILER 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 Not on file Not on file documented as of this encounter Plan of Treatment Not on file documented as of this encounter Visit Diagnoses Not on filedocumented in this encounter Additional Health Concerns Assessment Noted Time PHQ-9 Depression Total Score: 15 023 10:20 AM TRIMMER TAILER documented as of this encounter Care Teams Band Sawing Machine Operator Relationship Specialty [place] [address] [place] [address] PCP - General PHYSICIAN SEARCH ANALYST 08/03/22 08/11/23 Josefa Rodríguez PA-C [address] [address] PCP - General PHYSICIAN SEARCH ANALYST 08/12/23 documented as of this encounter
--- OUTSIDE RECORDS SUMMARY | 2024-10-22 20:55 | XMS_ITS | Encounter Summary ---
Author Organization [facility] Address [address] [place] [address]. [place], [place] [address] [place] [address] Care Team Providers Care Director Appointment Name Role Phone Mera Trevizo Primary Care Provider + [phone] Reason for Visit * Reason Onset Date Comments Results 10/11/2022 Encounter Details Date Type Department Care Team ([facility] st Contact Info) Description 10/11/[address] [address] Chelsea Engle, RN Results Social History Tobacco [...] Sex Assigned at Female 12/15/2018 11:48 AM COMMUNITY LIVING SPECIALIST Legal Sex Female 8:12 PM CDT Gender Identity Female 12/15/2018 11:48 AM COMMUNITY LIVING SPECIALIST Sexual Orientation Straight 12/15/2018 11 :21 AM COMMUNITY LIVING SPECIALIST 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 No / Unsure 09/12/2022 7:38 AM COMMUNITY LIVING SPECIALIST documented as of this encounter Progress Notes * Chelsea Engle RN - 10/11/2022 12:15 PM CST No significant arrhythmias. No symptom rhythm correlation. Above message from Dr. Lane (after review of the monitor). I left a voicemail for the patient to call our office. The office number and my extension were provided. 10/16/22 - Moobia message sent to the patient with the above information from Dr. Lane. UNITY LIVING SPECIALIST UNITY LIVING SPECIALIST documented in this encounter Plan of Treatment Not on file documented as of this encounter Visit Diagnoses Not on filedocumented in this encounter Additional Health Concerns Assessment Noted Time PHQ-9 Depression Total Score: 17 022 10:11 AM CDT documented as of this encounter Care Teams Director Appointment Relationship Specialty [place] [address] [place] [address] PCP - General PHYSICIAN COMPRESSOR MECHANIC 08/03/22 08/11/23 documented as of this encounter
--- OUTSIDE RECORDS SUMMARY | 2024-10-22 20:55 | XMS_ITS | Encounter Summary ---
Author Organization [facility] Address [address] [place] [address]. [place], [place] [address] [place] [address] Care Team Providers Care Machine Tool Technician Instructor Name Role Phone Mera Trevizo Primary Care Provider + [phone] Encounter Details Date Type Department Care Team [...] Sex Assigned at Female 12/15/2018 11:48 AM VIBRATING SCREED OPERATOR Legal Sex Female 8:12 PM CDT Gender Identity Female 12/15/2018 11:48 AM VIBRATING SCREED OPERATOR Sexual Orientation Straight 12/15/2018 11 :21 AM VIBRATING SCREED OPERATOR Occupation Industry Job Start Date Job End Date [facility] Not on file Not on file Not [...] as of this encounter Care Teams Machine Tool Technician Instructor Relationship Specialty [place] [address] [address] [place] [address] PCP - General PHYSICIAN FITNESS SERVICES MANAGER 08/03/22 08/11/23 documented as of this encounter
--- OUTSIDE RECORDS SUMMARY | 2024-10-22 20:55 | XMS_ITS | Encounter Summary ---
Author Organization [facility] Address [address] [place] [address]. [place], [place] [address] [place] [address] Care Team Providers Care Guest Service Aide Name Role Phone Josefa Rodríguez PA-C Primary Care Provider [phone] Encounter Details Date Type Department Care Team [...] Sex Assigned at Female 12/15/2018 11:48 AM HARNESS BUILDER Legal Sex Female 8:12 PM CDT Gender Identity Female 12/15/2018 11:48 AM HARNESS BUILDER Sexual Orientation Straight 12/15/2018 11 :21 AM HARNESS BUILDER Occupation Industry Job Start Date Job End Date [employer] [facility] Not on file Not on file Not on file documented as of this encounter Plan of Treatment Not on file documented as of this encounter Visit Diagnoses Not on filedocumented in this encounter Additional Health Concerns Assessment Noted Time PHQ-9 Depression Total Score: 15 11/26/ 023 10:20 AM HARNESS BUILDER documented as of this encounter Care Teams Guest Service Aide Relationship Specialty Start Date End Date Josefa Rodríguez PA-C [address] [place] [address] PCP - General PHYSICIAN SAW GRINDER 08/12/23 documented as of this encounter
--- OUTSIDE RECORDS SUMMARY | 2024-10-22 20:55 | XMS_ITS | Encounter Summary ---
Author Organization [facility] Address [address] [place] [address]. [place] [id number] [place], [place] [address] Care Team Providers Care Cellophane Worker Name Role Phone Mera Trevizo Primary Care Provider [phone] Reason for Referral * Imaging (Routine) - Closed Specialty Diagnoses / Procedures Referred By Hussein t Referred To Contact RADIOLOGY Diagnoses Breast cancer screening by mammogram Procedures MG SCREENING [place] [address] [place] [address] Phone: tel: fax: Referral ID Status Reason Start Date Expiration Date Visits Re quested Visits Authorized [id number] Closed 08/27/2022 08/27/2023 1 1 * Consultation (Routine) - Closed Specialty Diagnoses / Procedures Referred By Contac t Referred To Contact CARDIOLOGY / Cardiology Diagnoses Heart palpitations Procedures OFFICE/OUTPT VISIT,NEW,LEVL III OFFICE/OUTPT VISIT,NEW,LEVL IV OFFICE/OUTPT VISIT,NEW,LEVL V OFFICE/OUTPT VISIT,EST,LEVL III OFFICE/OUTPT VISIT,EST,LEVL IV OFFICE/OUTPT VISIT,EST,[place] [address] [place] [phone] Phone: tel: fax: [facility], [address] [address] Phone: tel: fax: Referral ID Status Reason Start Date Expiration Date V isits Requested Visits Authorized [id number] Closed Specialty Services 08/03/2022 09/02/2023 1 1 Reason for Visit * Reason Comments Follow Up Transfer care (Kendra pt) Refill Request Pt needing refill on Serteraline Referral Request Pt requesting referr als for endocrine and cardiology Encounter Details Date Type Department Care Team (Late st Contact Info) Description 08/03/2022 10:00 AM CDT Office Visit [facility] Medical Group Family & Internal Medicine [address] [address] [place] [id number] [place] [address] Follow Up (Transfer care (Kendra pt)); [...] Sex Assigned at Female 12/15/2018 11:48 AM MARKETING PLANNING MANAGER Legal Sex Female 8:12 PM CDT Gender Identity Female 12/15/2018 11:48 AM MARKETING PLANNING MANAGER Sexual Orientation Straight 12/15/2018 11 :21 AM MARKETING PLANNING MANAGER Occupation Industry Job Start Date Job [...] R00.2 785.1 PALPITATIONS Ambulatory referral to Cardiology, [facility] ([facility]) 4. Low TSH level R79.89 794.5 DECREASED [...] Portions of this note were dictated using Smarp speech recognition software. Occasional wrong wordor sound-alike [...] r Schedule Ambulatory referral to Cardiology, Adult ([facility]) Referral Routine Heart palpitations Ordered: 08/03/2022 documented [...] 1,070(H) <9 IU/mL 08/06/2022 1:56 AM CDT [employer] BRITTWAQAR TRACY THYROGLOBULIN AB <1 <=1 IU/mL 08/06/20 1:56 AM CDT [employer] JAVY TRACY Comment: Test Performed by Rosa Maldonado, Driver Hire [employer] [facility], [address] [place], [place] Cole Toribio M.D., Ph.D., Director of Laboratories , [place] [id number] 08/03/2022 11:0 4 AM CDT [facility] Final Result [facility] [address] [place] [address], [place] [phone] * (ABNORMAL) TSH W/REFLEX (08/03/2022 11:04 AM CDT) TSH <0.007(L) 0.358 - 3.74 uIU/ML 08/03/2022 12:55 PM CDT [facility] Comment: HIGH DOSES OF BIOTIN MAY INTERFERE WITH THIS TEST RESULT. CORRELATION TO CLINICAL HISTORY AND PRESENTATION RECOMMENDED. 08/03/2022 11:0 4 AM CDT us [facility] Final Result [facility] [address] [place] [address], [place] [phone] documented in this encounter Visit Diagnoses Diagnosis Breast cancer screening by mammogram- Primary Anxiety Anxiety state, unspecified Heart palpitations Palpitations Low TSH level Nonspecific abnormal results of thyroid function study Anxiety and depression Dysthymic disorder documented in this encounter Additional Health Concerns Assessment Noted Time PHQ-9 Depression Total Score: 17 022 10:11 AM CDT documented as of this encounter Care Teams Cellophane Worker Relationship Specialty [place] [address] [place] [address] PCP - General PHYSICIAN TEAM OTR TRUCK DRIVER 08/03/22 08/11/23 documented as of this encounter
--- OUTSIDE RECORDS SUMMARY | 2024-10-22 20:55 | XMS_ITS | Encounter Summary ---
Author Organization [facility] Address [address] [place] [address]. [place], [place] [address] [place] [address] Care Team Providers Care Cargo Supervisor Name Role Phone Mera Trevizo Primary Care Provider + [phone] Reason for Referral * Consultation (Urgent) - Closed Specialty Diagnoses / Procedures Referred By Contac t Referred To Contact ENDOCRINOLOGY Diagnoses Low TSH level Heart palpitations Procedures OFFICE/OUTPT VISIT,NEW,LEVL III OFFICE/OUTPT VISIT,NEW,LEVL IV OFFICE/OUTPT VISIT,NEW,LEVL V OFFICE/OUTPT VISIT,EST,LEVL III OFFICE/OUTPT VISIT,EST,LEVL IV OFFICE/OUTPT VISIT,EST,LEVL V Mera Trevizo [place] [address] [place] [address] Phone: tel: fax: [facility] [place] [address] Phone: tel: fax: Referral ID Status Reason Start Date Expiration Date Visits Re quested Visits Authorized [id number] Closed 08/07/2022 09/07/2023 100 100 Scheduling Instructions Whoever is in network and can get pt in [facility] Encounter Details Date Type Department Care Team (Late st Contact Info) Description 08/07/2022 Orders Only [facility] Medical [facility] Family & Internal Medicine - [place] [address] [place] [address] [place] [address] [place] [address] Social History Tobacco Use Types [...] Sex Assigned at Female 12/15/2018 11:48 AM WIND TURBINE TECHNICIAN Legal Sex Female 8:12 PM CDT Gender Identity Female 12/15/2018 11:48 AM WIND TURBINE TECHNICIAN Sexual Orientation Straight 12/15/2018 11 :21 AM WIND TURBINE TECHNICIAN Occupation Industry Job Start Date Job End Date [employer] Not on file Not on file [...] documented as of this encounter Care Teams Cargo Supervisor Relationship Specialty [place] [address] [place] [address] PCP - General PHYSICIAN OXIDIZED FINISH PLATER 08/03/22 08/11/23 documented as of this encounter
--- OUTSIDE RECORDS SUMMARY | 2024-10-22 20:55 | XMS_ITS | Encounter Summary ---
Author Organization [facility] Address [address] [place] [address]. [place], [place] [address] [place] [address] Care Team Providers Care Him Coder Name Role Phone Mera Trevizo Primary Care Provider + [phone] Encounter Details Date Type Department Care Team [...] Sex Assigned at Female 12/15/2018 11:48 AM RESIZER OPERATOR Legal Sex Female 8:12 PM CDT Gender Identity Female 12/15/2018 11:48 AM RESIZER OPERATOR Sexual Orientation Straight 12/15/2018 11 :21 AM RESIZER OPERATOR Occupation Industry Job Start Date Job [...] Depression Total Score: 15 023 10:20 AM RESIZER OPERATOR documented as of this encounter Care Teams Him Coder Relationship Specialty [place] [address] [place] [address] PCP - General PHYSICIAN DESIGN DRAFTER 08/03/22 08/11/23 documented as of this encounter
--- OUTSIDE RECORDS SUMMARY | 2024-10-22 20:55 | XMS_ITS | Encounter Summary ---
Author Organization [facility] Address [address] [place] [address]. [place], [place] [address] [place] [address] Care Team Providers Care Garde Manager Name Role Phone Mera Trevizo Primary Care Provider + [phone] Reason for Referral * Consultation/Treatment (Routine) - Closed Specialty Diagnoses / Procedures Referred By Contac t Referred To Contact GENERAL SURGERY Diagnoses LLQ pain Polyp of colon, unspecified part of colon, unspecified type Procedures OFFICE/OUTPT VISIT,NEW,LEVL III OFFICE/OUTPT VISIT,NEW,LEVL IV OFFICE/OUTPT VISIT,NEW,LEVL V OFFICE/OUTPT VISIT,EST,LEVL III OFFICE/OUTPT VISIT,EST,LEVL IV OFFICE/OUTPT VISIT,EST,[place] [address] [place] [address] Phone: tel: fax: Chuck Ruby DO Phone: tel: fax: Referral ID Status Reason Start Date Expiration Date Visits Re quested Visits Authorized [id number] Closed 03/12/2023 04/12/2024 100 100 * Consultation (Urgent) - Closed Specialty Diagnoses / Procedures Referred By Contac t Referred To Contact ENDOCRINOLOGY Diagnoses Abnormal TSH Procedures OFFICE/OUTPT VISIT,NEW,LEVL III OFFICE/OUTPT VISIT,NEW,LEVL IV OFFICE/OUTPT VISIT,NEW,LEVL V OFFICE/OUTPT VISIT,EST,LEVL III OFFICE/OUTPT VISIT,EST,LEVL IV OFFICE/OUTPT VISIT,EST,[place] [address] [place] [address] Phone: tel: fax: [facility] End[facility] [address] [address] Phone: tel: fax: Referral ID Status Reason Start Date Expiration Date Visits Re quested Visits Authorized [id number] Closed 03/12/2023 04/11/2024 1 1 Scheduling Instructions Suspect hyperthyroidism Reason for Visit * Reason Comments Hernia Abd bulge Encounter Details Date Type Department Care Team (Late st Contact Info) Description 03/12/2023 9:40 AM CDT Office Visit [facility] Family & [facility] [address] [place] [address] [place] [address] [place] [address] Hernia (Abd bulge) Social History [...] Sex Assigned at Female 12/15/2018 11:48 AM SERVICE PLANNER Legal Sex Female 8:12 PM CDT Gender Identity Female 12/15/2018 11:48 AM SERVICE PLANNER Sexual Orientation Straight 12/15/2018 11 :21 AM SERVICE PLANNER Occupation Industry Job Start Date Job End Date [employer] [facility] Not on file Not on file [...] to 3 months. She has seen her CALL CENTER ASSISTANT they did a pelvic ultrasound they did [...] W CON Ambulatory referral to General Surgery ([facility]) 3. Polyp of colon, unspecified part of colon, unspecified type K63.5 211.3 POLYP OF COLON Ambulatory referral to General Surgery ([facility]) We will refer patient to [...] Endocrinology (OTHER) Ambulatory referral to General Surgery ([facility]) CT ABD+PEL W CON I [...] Portions of this note were dictated using Peatix speech recognition software. Occasional wrong wordor sound-alike [...] Ordered: 03/12/2023 Ambulatory referral to General Surgery ([facility]) Referral Routine LLQ pain Polyp [...] - 1.46 NG/DL 03/12/2023 3:18 PM CDT [facility] 03/12/2023 9:46 AM CDT [facility] Final Result [facility] [address] [place] [address], [place] [phone] * (ABNORMAL) TSH W/REFLEX (03/12/2023 9:46 AM CDT) TSH <0.007(L) 0.358 - 3.74 uIU/ML 03/12/2023 3:18 PM CDT [facility] Comment: HIGH DOSES OF BIOTIN MAY INTERFERE WITH THIS TEST RESULT. CORRELATION TO CLINICAL HISTORY AND PRESENTATION RECOMMENDED. 03/12/2023 9:46 AM CDT [facility] Final Result [facility] [address] [place] [address], documented in this encounter Visit Diagnoses Diagnosis Abnormal TSH- Primary Other abnormal clinical finding LLQ pain Abdominal pain, left lower quadrant Polyp of colon, unspecified part of colon, unspecified type documented in this encounter Additional Health Concerns Assessment Noted Time PHQ-9 Depression Total Score: 15 023 10:20 AM SERVICE PLANNER documented as of this encounter Care Teams Garde Manager Relationship Specialty [place] [address] [place] [address] PCP - General PHYSICIAN NURSES' REGISTRY DIRECTOR 08/03/22 08/11/23 documented as of this encounter
--- OUTSIDE RECORDS SUMMARY | 2024-10-22 20:55 | XMS_ITS | Encounter Summary ---
Author Organization [facility] Address [address] [place] [address]. [place], [place] [address] [place] [address] Care Team Providers Care Coat Room Attendant Name Role Phone Trenton Trevizo Primary Care Provider [phone] Reason for Visit * Reason Comments Earache Right earache. Onset - couple wk/worse lately Encounter Details Date Type Department Care Team (Late st Contact Info) Description 03/19/2023 1:40 PM CDT Office Visit [facility] Medical Group Family & Internal Medicine [facility] [address] [place] [phone] [place] [address] [place] [address] Earache (Right earache. Onset- couple wk/worse [...] Sex Assigned at Female 12/15/2018 11:48 AM OXYGEN THERAPY TECHNICIAN Legal Sex Female 8:12 PM CDT Gender Identity Female 12/15/2018 11:48 AM OXYGEN THERAPY TECHNICIAN Sexual Orientation Straight 12/15/2018 11 :21 AM OXYGEN THERAPY TECHNICIAN Occupation Industry Job Start Date Job End Date [employer] Not on file Not on file [...] Everywhere. * Serous Otitis Media Discharge Instructions (Hungarian) documented in this encounter Progress Notes * [...] Portions of this note were dictated using Iterable speech recognition software. Occasional wrong wordor sound-alike [...] Total Score: 15 11/26/ 023 10:20 AM OXYGEN THERAPY TECHNICIAN documented as of this encounter Care Teams Coat Room Attendant Relationship Specialty [place] [address] [place] [address] PCP - General PHYSICIAN CRAWLER CRANE OPERATOR 08/03/22 08/11/23 documented as of this encounter
--- OUTSIDE RECORDS SUMMARY | 2024-10-22 20:55 | XMS_ITS | Encounter Summary ---
Author Organization [facility] Address [address] [place] [address]. [place], [place] [address] [place] [address] Care Team Providers Care Band Master Name Role Phone Mera Trevizo Primary Care Provider + [phone] Encounter Details Date Type Department Care Team [...] Sex Assigned at Female 12/15/2018 11:48 AM FLOUR DISTRIBUTOR Legal Sex Female 8:12 PM CDT Gender Identity Female 12/15/2018 11:48 AM FLOUR DISTRIBUTOR Sexual Orientation Straight 12/15/2018 11 :21 AM FLOUR DISTRIBUTOR Occupation Industry Job Start Date Job End Date [facility] Not on file Not on file [...] Depression Total Score: 15 023 10:20 AM FLOUR DISTRIBUTOR documented as of this encounter Care Teams Band Master Relationship Specialty [place] [address] [place] [address] PCP - General PHYSICIAN GAS OR PETROLEUM OPERATOR 08/03/22 08/11/23 documented as of this encounter
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
--- OUTSIDE RECORDS SUMMARY | 2024-10-22 20:55 | XMS_ITS | Encounter Summary ---
Author Organization [facility] Address [address] [place] [address]. [place], [place] [address] [place] [address] Care Team Providers Care Printing Mechanist Name Role Phone Mera Trevizo Primary Care Provider [phone] Reason for Referral * Imaging (Routine) - Closed Specialty Diagnoses / Procedures Referred By Hussein marrufo Referred To Contact Diagnoses Palpitations Procedures CLINIC - HOLTER MONITOR - ECG UP TO 48 HRS,COMPLETE India Lane MD Three [facility]. [facility] [address] [place] [address] Phone: tel: fax: [facility] 3 [facility] [address] [place] [address] Phone: tel: fax: Referral ID Status Reason Start Date Expiration Date Visits Re quested Visits Authorized [id number] Closed 08/24/2022 08/24/2023 1 1 Reason for Visit * Reason Comments Palpitations New Consult * Consultation (Routine) - Closed Specialty Diagnoses / Procedures Referred By Hussein marrufo Referred To Contact CARDIOLOGY / Cardiology Diagnoses Heart palpitations Procedures OFFICE/OUTPT VISIT,NEW,LEVL III OFFICE/OUTPT VISIT,NEW,LEVL IV OFFICE/OUTPT VISIT,NEW,LEVL V OFFICE/OUTPT VISIT,EST,LEVL III OFFICE/OUTPT VISIT,EST,LEVL IV OFFICE/OUTPT VISIT,EST,LEVL V [place], [place] [address] [place] [address] Phone: tel: fax: [facility]ia galindo [facility], [facility] [address] [place] [address] Phone: tel: fax: Referral ID Status Reason Start Date Expiration Date V isits Requested Visits Authorized [id number] Closed Specialty Services 08/03/2022 09/02/2023 1 1 Encounter Details Date Type Department Care Team (Late st Contact Info) Description 08/24/2022 1:15 PM CDT Office Visit [facility]Dhiraj arreguin [facility], [facility] [address] [place] [address] MD [facility]. [facility] [address] [place] [address] Palpitations (New Consult ) Social [...] Sex Assigned at Female 12/15/2018 11:48 AM [facility] Legal Sex Female 8:12 PM CDT Gender Identity Female 12/15/2018 11:48 AM [facility] Sexual Orientation Straight 12/15/2018 11 :21 AM [facility] Occupation Industry Job Start Date Job End [...] UP TO 48 HRS,COMPLETE (10/09/2022 1:08 PM [facility]) Sarath HERMOSILLO C[facility] - 10/09/2022 1:08 PM [facility] [address] [place], [place] ??[address] Phone: ?? Fax: ?? OPERATING ROOM COORDINATOR REPORT PATIENT NAME: ??Jamir Bowman : ??1975 DATE OF TESTIN09/05/22 - 09/07/22 TYPE OF MONITOR: Mobile Cardiac Telemetry (MCT) PCP: ??VAL ISLAS INTERPRETING SIDE SHOW ENTERTAINER: ??India Lane MD INDICATION: ??Palpitations FINDINGS: Jamir [...] 08/27/2022 10:15 AM CDT ?[facility]? [facility] ? Test Date: ?2022-08-24 Pat Name: ? JAMIR BOWMAN ?Department: ?? 112 ? Room: ? Gender: ? Female ? Clinical Specialist: ?? : ?1975 ? Requested By: INDIA LANE Order Number: [id number] ?Reading : ?? India Lane ? Measurements Intervals ?[place] ? Rate: ? 86 ? P: ?64 MN: ? 140 ?QRS: ?86 QRSD: ? 94 ? T: ?70 QT: ? 368 ? QTc: ?441 ? Interpretive Statements SINUS RHYTHM MINIMAL VOLTAGE CRITERIA FOR LVH, CONSIDER NORMAL VARIANT No prior ECG available for comparison Procedure Note India Lane MD - 08/27/2022 [facility]? [facility] Test Date: 2022-08-24 Pat Name: JAMIR BOWMAN Department: 112 Room: Gender: Female Clinical Specialist: : 1975 Requested By: INDIA LANE Order Number: [id number] Reading MD: India Lane Measurements Intervals [place] Rate: 86 P: 64 MN: 140 QRS: 86 QRSD: 94 T: 70 [...] documented as of this encounter Care Teams Printing Mechanist Relationship Specialty [place] [address] [place] [address] PCP - General PHYSICIAN PRECISION DEVICES INSPECTOR/TESTER 08/03/22 08/11/23 documented as of this encounter
--- OUTSIDE RECORDS SUMMARY | 2024-10-22 20:55 | XMS_ITS | Encounter Summary ---
Author Organization [facility] Address [address] [place] [address]. [place], [place] [address] [place] [address] Care Team Providers Care Integration Technician Name Role Phone Mera Trevizo Primary Care Provider [phone] Encounter Details Date Type Department Care Team [...] Sex Assigned at Female 12/15/2018 11:48 AM CYLINDER PRESS OPERATOR Legal Sex Female 8:12 PM CDT Gender Identity Female 12/15/2018 11:48 AM CYLINDER PRESS OPERATOR Sexual Orientation Straight 12/15/2018 11 :21 AM CYLINDER PRESS OPERATOR Occupation Industry Job Start Date Job [...] documented as of this encounter Care Teams Integration Technician Relationship Specialty [place] [address] [place] [address] PCP - General PHYSICIAN PRESS CLIPPER 08/03/22 08/11/23 documented as of this encounter
--- OUTSIDE RECORDS SUMMARY | 2024-10-22 20:55 | XMS_ITS | Encounter Summary ---
Author Organization [facility] Address [address] [place] [address]. [place], [place] [address] [place] [address] Care Team Providers Care Retail Merchandising Specialist Name Role Phone Josefa Rodríguez PA-C Primary Care Provider [phone] Encounter Details Date Type Department Care Team (Late st Contact Info) Description 08/29/2023 Orders Only [facility], [address] [address] Josefa Rodríguez PA-C [address] [facility] [address] [place] [address] Social History Tobacco Use Types [...] Sex Assigned at Female 12/15/2018 11:48 AM GLOBAL PROGRAM MANAGER Legal Sex Female 8:12 PM CDT Gender Identity Female 12/15/2018 11:48 AM GLOBAL PROGRAM MANAGER Sexual Orientation Straight 12/15/2018 11 :21 AM GLOBAL PROGRAM MANAGER Occupation Industry Job Start Date Job [...] Total Score: 15 11/26/ 023 10:20 AM GLOBAL PROGRAM MANAGER documented as of this encounter Care Teams Retail Merchandising Specialist Relationship Specialty Start Date End Date Josefa Rodríguez PA-C [address] [place] [address] PCP - General PHYSICIAN BAG MAKING MACHINE OPERATOR 08/12/23 documented as of this encounter
--- OUTSIDE RECORDS SUMMARY | 2024-10-22 20:55 | XMS_ITS | Encounter Summary ---
Author Organization [facility] Address [address] [place] [address]. [place], [place] [address] [place] [address] Care Team Providers Care Equipment Planner Name Role Phone Akilah Gardner NP Primary Care Provider Mera Cesar Primary Care Provider [phone] Josefa RodríguezC Primary Care Provider [phone] Encounter Details Date Type Department Care Team (Late st Contact Info) Description 11/28/2021 VISENZE Message Enc [facility] Medical Group Family & Internal Medicine [facility] [address] [place] [address] Akilah Gardner, OTONIEL Reschedule 12/04/21 Social [...] Sex Assigned at Female 12/15/2018 11:48 AM FARM HELPER Legal Sex Female 8:12 PM CDT Gender Identity Female 12/15/2018 11:48 AM FARM HELPER Sexual Orientation Straight 12/15/2018 11 :21 AM FARM HELPER 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 Not on file Not on file documented as of this encounter Plan of Treatment Not on file documented as of this encounter Visit Diagnoses Not on filedocumented in this encounter Additional Health Concerns Infection Onset Date Last Indicated Resolved Time COVID-19 Rule Out 09/12/2022 09/12/2022 09/12/2022 10:26 AM FARM HELPER COVID-19 Rule Out 09/12/2022 09/12/2022 09/12/2022 1:04 PM FARM HELPER COVID-19 Rule Out 09/12/2022 09/12/2022 09/13/2022 5:41 PM FARM HELPER COVID-19 Rule Out 11/26/2022 11/26/2022 11/26/2022 10:46 AM FARM HELPER Assessment Noted Time PHQ-9 Depression Total Score: 14 021 8:58 AM CDT documented as of this encounter Care Teams Equipment Planner Relationship Specialty Start Date End Date Akilah Gardner NP PCP - General NURSE PRACTITIONER 09/01/21 08/02/22 [place] [address] [place] [address] PCP - General PHYSICIAN COMMERCIAL HELICOPTER PILOT 08/03/22 08/11/23 Josefa Rodríguez PA-C [address] [address] PCP - General PHYSICIAN COMMERCIAL HELICOPTER PILOT 08/12/23 documented as of this encounter
--- OUTSIDE RECORDS SUMMARY | 2024-10-22 20:55 | XMS_ITS | Encounter Summary ---
Author Organization [facility] Address [address] [place] [address]. [place], [place] [address] [place] [address] Care Team Providers Care Skiing Teacher Name Role Phone Josefa Rodríguez PA-C Primary Care Provider [phone] Reason for Visit * Reason Onset Date Comments Schedule Test 08/29/2023 30 DAY EM Encounter Details Date Type Department Care Team (Late st Contact Info) Description 08/29/2023 Telephone [facility], [address] [address] Josefa Rodríguez PA-C [address] [facility] [address] [place] [address] Schedule Test (30 DAY EM) Social [...] Sex Assigned at Female 12/15/2018 11:48 AM RESEARCH AND DEVELOPMENT MANAGER Legal Sex Female 8:12 PM CDT Gender Identity Female 12/15/2018 11:48 AM RESEARCH AND DEVELOPMENT MANAGER Sexual Orientation Straight 12/15/2018 11 :21 AM RESEARCH AND DEVELOPMENT MANAGER Occupation Industry Job Start Date Job [...] Depression Total Score: 15 023 10:20 AM RESEARCH AND DEVELOPMENT MANAGER documented as of this encounter Care Teams Skiing Teacher Relationship Specialty Start Date End Date Josefa Rodríguez PA-C [address] [facility] [address] [place] [address] PCP - General PHYSICIAN LOG HAUL CHAIN FEEDER 08/12/23 documented as of this encounter
--- OUTSIDE RECORDS SUMMARY | 2024-10-22 20:55 | XMS_ITS | Encounter Summary ---
Author Organization [facility] Address [address] [place] [address]. [place], [place] [address] [place] [address] Care Team Providers Care Plumbing Drafter Name Role Phone Mera Trevizo Primary Care Provider [phone] Reason for Visit * Reason Onset Date Comments Holter Monitor 08/29/2022 * Imaging (Routine) - Closed Specialty Diagnoses / Procedures Referred By Contac t Referred To Contact Diagnoses Palpitations Procedures CLINIC - HOLTER MONITOR - ECG UP TO 48 HRS,COMPLETE Marcela Lane MD [facility]. [facility] [address] [place] [address] Phone: tel: fax: [facility] [address] [place] [address] [address] [place] [address] Phone: tel: fax: Referral ID Status Reason Start Date Expiration Date Visits Re quested Visits Authorized [id number] Closed 08/24/2022 08/24/2023 1 1 Encounter Details Date Type Department Care Team (Late st Contact Info) Description 08/29/2022 7:30 AM CDT Telephone [facility], [facility] [address] [place], [place] [phone]a [address] MD [facility]. [facility] [address] [place] [address] Holter Monitor Social History Tobacco [...] Sex Assigned at Female 12/15/2018 11:48 AM CONCRETE MIXING PLANT LABORER Legal Sex Female 8:12 PM CDT Gender Identity Female 12/15/2018 11:48 AM CONCRETE MIXING PLANT LABORER Sexual Orientation Straight 12/15/2018 11 :21 AM CONCRETE MIXING PLANT LABORER Occupation Industry Job Start Date Job End Date [employer] [facility] Not on file Not on file Not on file COVID-19 Exposure Response Date Recorded In the last 10 days, have yo u been in contact with someone who was confirmed or suspected to have Coronavirus/COVID-19? No / Unsure 09/12/2022 7:38 AM CONCRETE MIXING PLANT LABORER documented as of this encounter Progress Notes * Yady Price MA - 10/04/2022 1:32 PM CST Left message for patient to return call to avoid being invoiced for the device. Offered UPS pick upwithin the message. Patient will be invoiced for the device if no return call. RETE MIXING PLANT LABORER * Chelsea Ortega, Behavioral Intervention Specialist - 08/29/2022 9:23 AM CDTSummary: SHIPPED MAIL BG MINI 48HM PALP PS 48 HOUR LEAD SET AND 20 ELECTRODES SENT [id number] / [id number] RETURN [id number] documented in this encounter Plan of Treatment Not on file documented as of this encounter Procedures Procedure Name Priority Date/Time Associated Diagnosis Comments HOLTER MONITOR (ECG) UP TO 48 HRS COMPLETE Routine 10/09/2022 1:08 PM CONCRETE MIXING PLANT LABORER Palpitations documented in this encounter Results * CLINIC - HOLTER MONITOR - ECG UP TO 48 HRS,COMPLETE (10/09/2022 1:08 PM CONCRETE MIXING PLANT LABORER) Sarath [facility] - 10/09/2022 1:08 PM CONCRETE MIXING PLANT LABORER [facility] [place], [place] ??[address] Phone: ?? Fax: ?? VOTING MACHINE MECHANIC REPORT PATIENT NAME: ??Frances Maguire : ??1975 DATE OF TESTIN09/05/22 - 09/07/22 TYPE OF MONITOR: Mobile Cardiac Telemetry (MCT) PCP: ??VAL ISLAS INTERPRETING ASSISTANT PRESSMAN: ??Marcela Lane MD INDICATION: ??Palpitations FINDINGS: Frances [...] Rule Out 09/12/2022 09/12/2022 09/12/2022 10:26 AM CONCRETE MIXING PLANT LABORER COVID-19 Rule Out 09/12/2022 09/12/2022 09/12/2022 1:04 PM CONCRETE MIXING PLANT LABORER COVID-19 Rule Out 09/12/2022 09/12/2022 09/13/2022 5:41 PM CONCRETE MIXING PLANT LABORER Assessment Noted Time PHQ-9 Depression Total Score: 17 022 10:11 AM CDT documented as of this encounter Care Teams Plumbing Drafter Relationship Specialty [place] [address] [place] [address] PCP - General PHYSICIAN SAP BW BI DEVELOPER 08/03/22 08/11/23 documented as of this encounter
--- OUTSIDE RECORDS SUMMARY | 2024-10-22 20:55 | XMS_ITS | Encounter Summary ---
Author Organization [facility] Address [address] [place] [address]. [place], [place] [address] [place] [address] Care Team Providers Care Dehydrator Name Role Phone Josefa Rodríguez PA-C Primary Care Provider [phone] Reason for Visit * Reason Comments Back Pain Encounter Details Date Type Department Care Team (Late st Contact Info) Description 11/07/2023 1:40 PM FUR OPERATOR - 11/07/2023 2:06 PM [facility] Emergency [facility] Emergency Room [address] [place] [address] Gilbert Pacheco MD [address] [place] [address] Back Pain Discharge Disposition: Home or Self [...] Sex Assigned at Female 12/15/2018 11:48 AM FUR OPERATOR Legal Sex Female 8:12 PM CDT Gender Identity Female 12/15/2018 11:48 AM FUR OPERATOR Sexual Orientation Straight 12/15/2018 11 :21 AM FUR OPERATOR 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 Not on file Not on file documented as of this encounter Last Filed Vital Signs Vital Sign Reading Time Taken Comments Blood Pressure 123/70 11/07/2023 1:41 PM FUR OPERATOR Pulse 98 11/07/2023 1:41 PM FUR OPERATOR Temperature 35.6 ??C (96 ??F) 11/07/2023 1:41 PM FUR OPERATOR Respiratory Rate 20 11/07/2023 1:41 PM FUR OPERATOR Oxygen Saturation 99% 11/07/2023 1:41 PM FUR OPERATOR Inhaled Oxygen Concentration - - Weight 65.8 kg (145 lb) 11/07/2023 1:41 PM FUR OPERATOR Height 167.6 cm (5' 6 ) 11/07/2023 1:41 PM FUR OPERATOR Body Mass Index 23.4 11/07/2023 1:41 PM FUR OPERATOR documented in this encounter Discharge Instructions * Attachments The following attachments cannot be sent through Care Everywhere. * Sacroiliac Joint Pain Discharge Instructions (Uzbek) documented in this encounter Medications at Time [...] Disposition: Discharge Gilbert Pacheco MD 11/08/23 0947 OPERATOR * Candy Abraham RN - 11/07/2023 1:45 PM CST 48 year old female in with complaints of lower back pain x 1 month. Patient notes she has been taking ibuprofen and tylenol with no relief. Patient rates pain a 10/10 at this time. OPERATOR documented in this encounter Plan of [...] least 2-3 minutes. Given 11/07/2023 1:58 PM FUR OPERATOR 1 mg Right Deltoid documented in this encounter Active and Recently Administered Medications Times are shown in FUR OPERATOR. Scheduled Medication Order 11/05/2023 11/06/2023 11/07/2023 HYDROmorphone (DILAUDID) injection 1 mg (COMPLETED) 1 mg, Intramuscular, Once, 1 dose, On Roseline 11/07/23 at 1400, Administer slowly over at least 2-3 minutes. 1358 (Given - Provid er: Kera Payne RN) documented in this encounter Additional Health Concerns Assessment Noted Time PHQ-9 Depression Total Score: 15 023 10:20 AM FUR OPERATOR documented as of this encounter Care Teams Dehydrator Relationship Specialty Start Date End Date Josefa Rodríguez PA-C [address] [facility] [address] [place] [address] PCP - General PHYSICIAN STONE LAYER 08/12/23 documented as of this encounter
--- OUTSIDE RECORDS SUMMARY | 2024-10-22 20:55 | XMS_ITS | Encounter Summary ---
Author Organization [facility] Address [address] [place] [address]. [place], [place] [address] [place] [address] Care Team Providers Care Acoustical Engineer Name Role Phone Mera Trevizo Primary Care Provider [phone] Reason for Visit * Reason Onset Date Comments Other 08/08/2022 Encounter Details Date Type Department Care Team (Late st Contact Info) Description 08/08/[address] [address] [place] [address] [place], [place] [phone] Other Social History Tobacco Use Types Packs/Day [...] Sex Assigned at Female 12/15/2018 11:48 AM CARGO HANDLER Legal Sex Female 8:12 PM CDT Gender Identity Female 12/15/2018 11:48 AM CARGO HANDLER Sexual Orientation Straight 12/15/2018 11 :21 AM CARGO HANDLER Occupation Industry Job Start Date Job End [...] documented as of this encounter Care Teams Acoustical Engineer Relationship Specialty Start [place] [address] [place] [address] PCP - General PHYSICIAN MACHINE SIGN WRITER 08/03/22 08/11/23 documented as of this encounter
--- OUTSIDE RECORDS SUMMARY | 2024-10-22 20:55 | XMS_ITS | Encounter Summary ---
Author Organization [facility] Address [address] [place] [address]. [place], [place] [address] [place] [address] Care Team Providers Care Unit Technician Name Role Phone Mera Trevizo Primary Care Provider [phone] Josefa Rodríguez PA-C Primary Care Provider [phone] Encounter Details Date Type Department Care Team (Late st Contact Info) Description 09/12/2022 XunLight Message Enc [facility] Medical Group Family & Internal Medicine [facility] [address] [place] [address] [place] [address] [place] [address] Doctors note Social History Tobacco [...] Sex Assigned at Female 12/15/2018 11:48 AM RECORD FILING CLERK Legal Sex Female 8:12 PM CDT Gender Identity Female 12/15/2018 11:48 AM RECORD FILING CLERK Sexual Orientation Straight 12/15/2018 11 :21 AM RECORD FILING CLERK Occupation Industry Job Start Date Job End Date [employer] Not on file Not on file Not on file COVID-19 Exposure Response Date Recorded In the last 10 days, have yo u been in contact with someone who was confirmed or suspected to have Coronavirus/COVID-19? No / Unsure 09/12/2022 7:38 AM RECORD FILING CLERK documented as of this encounter Plan of Treatment Not on file documented as of this encounter Visit Diagnoses Not on filedocumented in this encounter Additional Health Concerns Infection Onset Date Last Indicated Resolved Time COVID-19 Rule Out 09/12/2022 09/12/2022 09/12/2022 10:26 AM RECORD FILING CLERK COVID-19 Rule Out 09/12/2022 09/12/2022 09/12/2022 1:04 PM RECORD FILING CLERK COVID-19 Rule Out 09/12/2022 09/12/2022 09/13/2022 5:41 PM RECORD FILING CLERK COVID-19 Rule Out 11/26/2022 11/26/2022 11/26/2022 10:46 AM RECORD FILING CLERK Assessment Noted Time PHQ-9 Depression Total Score: 17 022 10:11 AM CDT documented as of this encounter Care Teams Unit Technician Relationship Specialty [place] [address] [place] [address] PCP - General PHYSICIAN TOOL CRIB LEAD 08/03/22 08/11/23 Josefa Rodríguez PA-C [address] [address] PCP - General PHYSICIAN TOOL CRIB LEAD 08/12/23 documented as of this encounter
--- OUTSIDE RECORDS SUMMARY | 2024-10-22 20:55 | XMS_ITS | Encounter Summary ---
Author Organization [facility] Address [address] [place] [address]. [place], [place] [address] [place] [address] Care Team Providers Care Business Planning Analyst Name Role Phone Akilah Gardner NP Primary Care Provider Unavailabl e Reason for Visit * Reason Onset Date Comments FYI 09/18/2021 Encounter Details Date Type Department Care Team (Late st Contact Info) Description 09/18/2021 Telephone [facility] Medical Group Multispecialty Care - [address] [place] [address] Akilah Gardner, BOARDING MOTHER Social History Tobacco Use Types Packs/Day Years [...] Assigned at Female 12/15/2018 11:48 AM BUILDING CLEANING SUPERVISOR Legal Sex Female 8:12 PM CDT Gender Identity Female 12/15/2018 11:48 AM BUILDING CLEANING SUPERVISOR Sexual Orientation Straight 12/15/2018 11 :21 AM BUILDING CLEANING SUPERVISOR Occupation Industry Job Start Date Job [...] - 09/18/2021 11:43 AM CST Noted, thanks DING CLEANING SUPERVISOR * Aidee Wu LPN - 09/18/2021 11:39 AM CST Centralized schedule have tried to contact pt for scheduling mammo unable order will be good for 30days FYI DING CLEANING SUPERVISOR documented in this encounter Plan of Treatment Not on file documented as of this encounter Visit Diagnoses Not on filedocumented in this encounter Additional Health Concerns Assessment Noted Time PHQ-9 Depression Total Score: 14 021 8:58 AM CDT documented as of this encounter Care Teams Business Planning Analyst Relationship Specialty Start Date End Date Akilah Gardner, BOARDING MOTHER PCP - General NURSE PRACTITIONER 09/01/21 08/02/22 documented as of this encounter
--- OUTSIDE RECORDS SUMMARY | 2024-10-22 20:55 | XMS_ITS | Encounter Summary ---
Author Organization [facility] Address [address] [place] [address]. [place], [place] [address] [place] [address] Care Team Providers Care High School Music Director Name Role Phone Josefa Rodríguez PA-C Primary Care Provider [phone] Encounter Details Date Type Department Care Team [...] Sex Assigned at Female 12/15/2018 11:48 AM IMMIGRATION PARALEGAL Legal Sex Female 8:12 PM CDT Gender Identity Female 12/15/2018 11:48 AM IMMIGRATION PARALEGAL Sexual Orientation Straight 12/15/2018 11 :21 AM IMMIGRATION PARALEGAL Occupation Industry Job Start Date Job End Date [employer] Not on file Not on file Not on file documented as of this encounter Plan of Treatment Not on file documented as of this encounter Visit Diagnoses Not on filedocumented in this encounter Additional Health Concerns Assessment Noted Time PHQ-9 Depression Total Score: 15 11/26/ 023 10:20 AM IMMIGRATION PARALEGAL documented as of this encounter Care Teams High School Music Director Relationship Specialty Start Date End Date Josefa Rodríguez PA-C [address] [place] [address] PCP - General PHYSICIAN FUR FINISHER TAILOR 08/12/23 documented as of this encounter
--- OUTSIDE RECORDS SUMMARY | 2024-10-22 20:55 | XMS_ITS | Encounter Summary ---
Author Organization [facility] Address [address] [place] [address]. [place], [place] [address] [place] [address] Care Team Providers Care Mixing Pan Tender Name Role Phone Mera Trevizo Primary Care Provider Encounter Details Date Type Department Care Team (Latest Contact Info) Description 09/12/2022 12:52 PM OB TECH - 09/12/2022 11:59 PM [facility] Encounter [facility] [address] [place], [place] [id number] [place] [address] [place], [place] [id number] Discharge Disposition: Home or Self Care (Routine [...] Sex Assigned at Female 12/15/2018 11:48 AM OB TECH Legal Sex Female 8:12 PM CDT Gender Identity Female 12/15/2018 11:48 AM OB TECH Sexual Orientation Straight 12/15/2018 11 :21 AM OB TECH 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 No / Unsure 09/12/2022 7:38 AM OB TECH documented as of this encounter Medications at [...] Comments CORONAVIRUS (COVID 19) Routine 10:24 AM OB TECH SED RATE, ERYTHROCYTE (ESR) Routine 09/12/2022 10:24 AM OB TECH COMPREHENSIVE METABOLIC PANEL Routine 09/12/2022 10:24 AM OB TECH Palpitations LIPID PANEL Routine 09/12/2022 10:24 AM OB TECH Lipid screening CBC W/DIFF AUTOMATED Routine 09/12/2022 10:24 AM OB TECH Other fatigue Sore throat THYROXINE, FREE (FT4) Routine 09/12/2022 10:24 AM OB TECH Palpitations Abnormal TSH THYROID STIM HORMONE TSH Routine 09/12/2022 10:24 AM OB TECH Palpitations Abnormal TSH documented in this encounter Results * SED RATE, ERYTHROCYTE (ESR) (09/12/2022 10:24 AM OB TECH) ESR 16 0 - 20 MM/HR 09/13/2022 8:52 AM OB TECH [facility] 09/12/2022 10:2 4 AM OB TECH us [facility] Final Result Performing Organization Address City/[facility]/ZIP Co de Phone Number [facility] [address] [place] [address], [place] [phone] * CORONAVIRUS (COVID 19) (09/12/2022 10:24 AM OB TECH) SPECIMEN SOURCE NASAL 1:05 PM OB TECH [facility] CORONAVIRUS SARS COV 2 PCR (RESP) NEGATIVE NEGATIVE 09/13/2022 5:41 PM OB TECH [facility] Comment: THE SARS-CoV-2 TEST HAS BEEN AUTHORIZED BY THE FDA UNDER AN EUA FOR USE BY AUTHORIZED LABORATORIES. PERFORMED BY NUCLEIC ACID AMPLIFICATION PCR 09/12/2022 10:2 4 AM OB TECH us [facility] MICROBIOLOGY - GENERAL ORDER ELIZABETH Final Result [facility] [address] [place] [address], [place] [phone] [facility] [address] [place] [address], [place] [phone] * (ABNORMAL) CBC W/DIFF AUTOMATED (09/12/2022 10:24 AM OB TECH) [facility] Signature WBC 4.6 4.4 - 11.0 x10'3/uL 09/12/2022 1:[address] [facility] RBC 4.13(L) 4.50 - 5.10 x10'6/uL 09/12/2022 1:[address] [facility] HGB 12.2(L) 12.3 - 15.3 G/DL 09/12/2022 1:[address] [facility] HCT 36.8 35.9 - 44.6 % 09/12/2022 1:[address] [facility] MCV 89.1 80.0 - 96.0 FL 09/12/2022 1:[address] [facility] MCH 29.5 25.3 - 30.9 PG 09/12/2022 1:[address] [facility] MCHC 33.2 31.0 - 34.1 G/DL 09/12/2022 1:[address] [facility] RDW 12.3(L) 12.4 - 15.1 % 09/12/2022 1:[address] [facility] PLT 132(L) 151 - 353 x10'3/uL 09/12/2022 1:[address] [facility] MPV 12.3(H) 9.6 - 12.0 FL 09/12/2022 1:[address] [facility] RBC MORPHOLOGY NORMAL 09/12/2022 1:[address] [facility] PLT MORPH. NORMAL 09/12/2022 1:[address] [facility] WBC MORPHOLOGY NORMAL 09/12/2022 1:[address] [facility] LYMPHOCYTES % 32.0 15.8 - 45.0 % 09/12/2022 1:10 PM OB TECH [facility] NEUTROPHILS % 56.0 42.1 - 71.9 % 09/12/2022 1:[address] [facility] MONOCYTES % 9.6 5.7 - 12.5 % 09/12/2022 1:[address] [facility] EOSINOPHILS 1.8 0.0 - 5.6 % 09/12/2022 1:[address] [facility] BASOPHILS 0.4 0.0 - 1.3 % 09/12/2022 1:[address] [facility] ABS. NEUTROPHILS 2.55 1.40 - 6.00 x10'3/uL 09/12/2022 1:[address] [facility] IMMATURE GRANS % 0.2 0.0 - 0.5 % 09/12/2022 1:[address] [facility] ABS. LYMPHOCYTES 1.46 0.80 - 4.70 x10'3/uL 09/12/2022 1:[address] [facility] 09/12/2022 10:2 4 AM OB TECH [facility] Final Result Performing Organization Address City/State/[facility] Co de Phone Number [facility] [address] [place] [address], * (ABNORMAL) COMPREHENSIVE METABOLIC PANEL (09/12/2022 10:24 AM OB TECH) [facility] GLUCOSE 123(H) 70 - 99 MG/DL 09/12/2022 2:[address] [facility] BUN 9 7 - 18 MG/DL 09/12/2022 2:[address] [facility] CREATININE S/P/B 0.46(L) 0.55 - 1.02 MG/DL 09/12/2022 2:[address] [facility] SODIUM S/P/B 142 136 - 145 MMOL/L 09/12/2022 2:[address] [facility] POTASSIUM S/P/B 4.0 3.5 - 5.1 MMOL/L 09/12/2022 2:[address] [facility] CHLORIDE S/P/B 107 100 - 108 MMOL/L 09/12/2022 2:[address] [facility] CO2 27.7 21 - 32 MMOL/L 09/12/2022 2:[address] [facility] CALCIUM S/P/B 8.7 8.5 - 10.1 MG/DL 09/12/2022 2:[address] [facility] BILIRUBIN TOTAL S/P/B 0.7 0.2 - 1.2 MG/DL 09/12/2022 2:[address] [facility] TOTAL PROTEIN S/P/B 6.2(L) 6.4 - 8.2 G/DL 09/12/2022 2:[address] [facility] ALBUMIN S/P/B 3.3(L) 3.4 - 5.0 G/DL 09/12/2022 2:[address] [facility] AST 18 15 - 37 U/L 09/12/2022 2:[address] [facility] ALT 29 14 - 55 U/L 09/12/2022 2:[address] [facility] ALKALINE PHOSPHATASE S/P/B 94 50 - 136 U/L 09/12/2022 2:[address] [facility] ANION GAP 7.3 5 - 15 MMOL/L 09/12/2022 2:[address] [facility] BUN CREATININE RATIO 19.6 6 - 26 09/12/2022 2:[address] [facility] A/G RATIO 1.1 1.0 - 2.0 RATIO 09/12/2022 2:[address] [facility] GFR ESTIMATE >90 >90 ML/MIN/1.7 3 M2 09/12/2022 2:[address] [facility] Comment: NOTE: eGFR is not calculated for patients <18 years of age. This is an estimated GFR calculation using the new CKD EPI creatinine equation without race and so does not require a correction factor for race. This estimated GFR should not be used for calculating drug doses. 09/12/2022 10:2 4 AM OB TECH [facility] Final Result [facility] [address] [place] [address], * (ABNORMAL) LIPID PANEL (09/12/2022 10:24 AM OB TECH) CHOLESTEROL 102 <200.0 MG/DL 09/12/2022 2:[address] [facility] TRIGLYCERIDES 168(H) <150 MG/DL 09/12/2022 2:[address] [facility] HDL 42 >40.0 MG/DL 09/12/2022 2:[address] [facility] LDL (CALCULATED) 26 <100 MG/DL 09/12/2022 2:[address] [facility] NON HDL CHOLESTEROL 60 <130 MG/DL 09/12/2022 2:[address] [facility] CHOL/HDL RATIO 2.4 0.0 - 4.5 09/12/2022 2:[address] [facility] VLDL CALCULATION 34 5 - 55 MG/DL 09/12/2022 2:[address] [facility] LIPID INTERPRETATION 09/12/2022 2:09 PM OB TECH [facility] Comment: NIH CONCENSUS REPORT RECOMMENDATIONS: [...] ? >=160 ?>=130 09/12/2022 10:2 4 AM OB TECH us [facility] Final Result [facility] [address] [place] [address], [place] [phone] * (ABNORMAL) THYROID STIM HORMONE, TSH (09/12/2022 10:24 AM OB TECH) TSH 0.002(L) 0.358 - 3.74 uIU/ML 09/12/2022 2:09 PM OB TECH [facility] Comment: HIGH DOSES OF BIOTIN MAY INTERFERE WITH THIS TEST RESULT. CORRELATION TO CLINICAL HISTORY AND PRESENTATION RECOMMENDED. 09/12/2022 10:2 4 AM OB TECH us [facility] Final Result Performing Organization Address [facility] de Phone Number [facility] [address] [place] [address], [place] [phone] * (ABNORMAL) THYROXINE, FREE (FT4) (09/12/2022 10:24 AM OB TECH) FREE T4 3.11(H) 0.76 - 1.46 NG/DL 09/12/2022 2:09 PM OB TECH [facility] 09/12/2022 10:2 4 AM OB TECH us [facility] Final Result Performing Organization Address [facility] Co de Phone Number [facility] [address] [place] [address], [place] [phone] documented in this encounter Visit Diagnoses Diagnosis Suspected COVID-19 virus infection Palpitations Abnormal TSH Other abnormal clinical finding Lipid screening Screening for lipoid disorders Other fatigue Sore throat Acute pharyngitis documented in this encounter Additional Health Concerns Infection Onset Date Last Indicated Resolved Time COVID-19 Rule Out 09/12/2022 09/12/2022 09/12/2022 1:04 PM OB TECH COVID-19 Rule Out 09/12/2022 09/12/2022 09/13/2022 5:41 PM OB TECH Assessment Noted Time PHQ-9 Depression Total Score: 17 022 10:11 AM CDT documented as of this encounter Care Teams Mixing Pan Tender Relationship Specialty [place] [address] [place] [address] PCP - General PHYSICIAN VACUUM FORM OPERATOR 08/03/22 08/11/23 documented as of this encounter
--- OUTSIDE RECORDS SUMMARY | 2024-10-22 20:56 | XMS_ITS | Encounter Summary ---
Author Organization [facility] Address [address] [place] [address]. [place], [place] [address] [place] [address] Care Team Providers Care Chemical Production Technician Name Role Phone Unavailable Primary Care Provider Unavailabl e Encounter Details Date Type Department Care Team (Late st Contact Info) Description 10/05/2015 Abstract [facility] Medical Group Family & Internal Medicine [facility] [address] [place] [address] [place] [address] [place] [address] Social History Tobacco Use Types Packs/Day Years Used Date Smoking Tobacco: Never Assessed Comments Unknown Sex and Gender Information Value Date Recorded Sex Assigned at Female 12/15/2018 11:48 AM REGIONAL BRANCH MANAGER Legal Sex Female 8:12 PM CDT Gender Identity Female 12/15/2018 11:48 AM REGIONAL BRANCH MANAGER Sexual Orientation Straight 12/15/2018 11 :21 AM REGIONAL BRANCH MANAGER documented as of this encounter Last Filed Vital Signs Vital Sign Reading Time Taken Comments Blood Pressure 116/62 10/05/2015 8:51 AM REGIONAL BRANCH MANAGER Pulse 78 10/05/2015 8:51 AM REGIONAL BRANCH MANAGER Temperature - - Respiratory Rate - - Oxygen Saturation - - Inhaled Oxygen Concentration - - Weight 76.2 kg (168 lb) 10/05/2015 8:51 AM REGIONAL BRANCH MANAGER Height 167.6 cm (5' 6 ) 10/05/2015 8:51 AM REGIONAL BRANCH MANAGER Body Mass Index 27.12 10/05/2015 8:51 AM REGIONAL BRANCH MANAGER documented in this encounter Progress Notes * [...] HOURS NEEDED FOR PAIN; Therapy: 05Oct2015 to (Evaluate:[id number]) Recorded Dispense: 5 Days ; #:30 Tablet; [...] TAKE 1 TABLET DAILY; Therapy: 04Feb2015 to (Evaluate:[id number]) Requested for: 29Aug2015; Last Rx:29Aug2015 Ordered Rx By: Noé Hansen; Dispense: 90 Days ; #:90 Tablet; Refill: 2; For: Adjustment disorder with anxiety; BIANCA = N; Verified Transmission to [facility] #[id number]; Last Updated By: [email or web address]; 08/29/2015 11:58:53 AM Allergies 1. Penicillins Recorded By: Marli Duke; 10/20/2012 10:26:31 AM Vitals Recorded: 36Oci1103 08:51AM Heart Rate 78 Systolic 116 Diastolic [...] warmth in joint. = shoulder shrugs, = metal furniture repairer. Skin Skin and subcutaneous tissue: Abnormal. limited [...] minutes the first 2 days.; Status:Complete; Done: [id number] Ordered; For:Contusion of shoulder, left; Ordered By:Noé Hansen; 2. Avoid activities that cause or worsen the pain.; Status:Complete; Done: 80Apl0845 Ordered; For:Contusion of shoulder, left; Ordered By:Noé Hansen; 3. Rest the affected body part as much as possible.; Status:Complete; Done: 70Sbo3557 Ordered; For:Contusion of shoulder, left; Ordered By:Noé [...] Pre-printed Instructions given to patient; Status:Complete; Done: [id number] Ordered; For:Left shoulder pain; Ordered By:Noé Hansen; [...] Noé Hansen NP; Oct 05 2015 9:45AM REGIONAL BRANCH MANAGER (Author) Electronically signed by : Yrn Padilla M.D.; Nov 07 2015 7:21AM REGIONAL BRANCH MANAGER (Author) documented in this encounter Plan of Treatment Not on file documented as of this encounter Visit Diagnoses Not on filedocumented in this encounter
--- OUTSIDE RECORDS SUMMARY | 2024-10-22 20:56 | XMS_ITS | Encounter Summary ---
Author Organization [facility] Address [address] [place] [address]. [place], [place] [address] [place] [address] Care Team Providers Care Passenger Brakeman Name Role Phone Unavailable Primary Care Provider Unavailabl e Encounter Details Date Type Department Care Team (Latest Contact Info) Description 07/30/2018 Abstract [facility] Medical Group Chantelle Hong NP Social History Tobacco Use Types Packs/Day Years Used Date Smoking Tobacco: Never Assessed Comments Unknown Sex and Gender Information Value Date Recorded Sex Assigned at Female 12/15/2018 11:48 AM DIRECTOR OF PLANNING Legal Sex Female 8:12 PM CDT Gender Identity Female 12/15/2018 11:48 AM DIRECTOR OF PLANNING Sexual Orientation Straight 12/15/2018 11 :21 AM DIRECTOR OF PLANNING documented as of this encounter Last Filed [...] to start again. States she does see TOOL CRIB MANAGER [facility] and is scheduled for an appt next week. [facility]: Date: 07/30/2018 Examiner: erin carrillo Grade [...] Oral Tablet; TAKE 2 TABLET Daily; Therapy: 70Tiv4695 to Recorded 2. Acyclovir 400 MG Oral Tablet; TAKE 1 TABLET BY MOUTH TWICE A DAY; Therapy: 29Feb2016 to Recorded 3. Mirena (52 MG) 20 MCG/24HR Intrauterine Intrauterine Device; USE DIRECTED. placed in 2017; Therapy: [id number] to Recorded 4. Sertraline HCl - 50 MG Oral Tablet; TAKE 1 TABLET BY MOUTH EVERY DAY; Therapy: 58Ctq8226 to (Evaluate:[id number]) Requested for: 60Xzp9772; Last Rx:[id number] Ordered Allergies 1. Penicillins Vitals Recorded: 30Jul2018 [...] depression; BIANCA = N; Verified Transmission to [facility] #[id number]; Msg to Pharmacy: Can do 30 days if insurance will not cover 90. thank you; Last Updated By: Penny Eden; 07/30/2018 5:00:43 PM 2. Call if: You are having difficulty sleeping (insomnia).; Status:Complete; Done: [id number] Ordered; For:Anxiety and depression; Ordered By:Chantelle Hong; 3. Call if: Your feelings of anxiety are not getting better in 2 weeks.; Status:Complete; Done: 48Ifx3536 Ordered; For:Anxiety and depression; Ordered By:Chantelle Hong; 4. Call if: Your feelings of being frightened, nervous, anxious, and out of control are happening more often.; Status:Complete; Done: 64Hqm7969 Ordered; For:Anxiety and depression; Ordered By:Chantelle Hong; 5. Call 637 if: You are considering suicide.; Status:Complete; Done: 09Ive0868 Ordered; For:Anxiety and depression; Ordered By:Chantelle Hong; 6. Call 911 if: You are thinking about harming yourself or someone else.; Status:Complete; Done: 06Bvv3157 Ordered; For:Anxiety and depression; Ordered By:Chantelle Hong; Restart sertraline today. Follow up in 6 months or sooner if medication is not effective. Discussion/Summary PHQ-9 Completed (Score 7). Signatures Electronically signed by : Chantelle Hong APN; Jul 31 2018 9:46AM DIRECTOR OF PLANNING (Author) documented in this encounter Plan of [...]
--- OUTSIDE RECORDS SUMMARY | 2024-10-22 20:56 | XMS_ITS | Encounter Summary ---
Author Organization [facility] Address [address] [place] [address]. [place] [id number] Care Team Providers Care Physical Therapy Supervisor Name Role Phone Jazmyne Hong DIE MAINTENANCE TECHNICIAN Primary Care Provider Unav ailable Reason for Visit * Reason Comments Shoulder Pain continued right shou lder pain Encounter Details Date Type Department Care Team (Late st Contact Info) Description 07/07/2020 3:40 PM CDT Office Visit [facility] Medical Group Family & Internal Medicine [address] [address] Jazmyne Hong NP Shoulder Pain [...] Sex Assigned at Female 12/15/2018 11:48 AM DIMENSION STONE QUARRY SUPERVISOR Legal Sex Female 8:12 PM CDT Gender Identity Female 12/15/2018 11:48 AM DIMENSION STONE QUARRY SUPERVISOR Sexual Orientation Straight 12/15/2018 11 :21 AM DIMENSION STONE QUARRY SUPERVISOR Occupation Industry Job Start Date Job End Date [employer] Not on file Not on [...] college, no degree Occupational History ??? Occupation: [employer] Social Needs ??? Financial resource strain: Not [...] file Gets together: Not on file Attends episcopalian service: Not on file Active member of [...] documented as of this encounter Care Teams Physical Therapy Supervisor Relationship Specialty Start Date End Date Jazmyne Hong NP PCP - General NURSE PRACTITIONER 12/15/18 08/31/21 documented as of this encounter
--- OUTSIDE RECORDS SUMMARY | 2024-10-22 20:56 | XMS_ITS | Encounter Summary ---
Author Organization [facility] Address [address] [place] [address]. [place], [place] [address] [place] [address] Care Team Providers Care Chairman & Chief Executive Officer Name Role Phone Chantelle Hong NP Primary Care Provider Unav ailable Encounter Details Date Type Department Care Team (Late st Contact Info) Description 12/04/2019 Orders Only [facility] Medical Group Family & Internal Medicine [facility] [address] [place] [address] Chantelle Hong, OTONIEL Social History [...] Sex Assigned at Female 12/15/2018 11:48 AM SAMPLE SELECTOR Legal Sex Female 8:12 PM CDT Gender Identity Female 12/15/2018 11:48 AM SAMPLE SELECTOR Sexual Orientation Straight 12/15/2018 11 :21 AM SAMPLE SELECTOR Occupation Industry Job Start Date Job End Date [employer] Not on file Not on file Not on file documented as of this encounter Plan of Treatment Not on file documented as of this encounter Visit Diagnoses Diagnosis Conjunctivitis of right eye, unspecified conjunctivitis type- Primary documented in this encounter Care Teams Chairman & Chief Executive Officer Relationship Specialty Start Date End Date Chantelle Hong NP PCP - General NURSE PRACTITIONER 12/15/18 08/31/21 documented as of this encounter
--- OUTSIDE RECORDS SUMMARY | 2024-10-22 20:56 | XMS_ITS | Encounter Summary ---
Author Organization [facility] Address [address] [place] [address]. [place], [place] [address] [place] [address] Care Team Providers Care Erp Business Analyst Name Role Phone Unavailable Primary Care Provider Unavailabl e Encounter Details Date Type Department Care Team (Late st Contact Info) Description 12/28/2016 Abstract [facility] [address] [place] [address] Mónica Crystal MD Social History Tobacco Use Types Packs/Day Years Used Date Smoking Tobacco: Never Assessed Comments Unknown Sex and Gender Information Value Date Recorded Sex Assigned at Female 12/15/2018 11:48 AM CHILD PROTECTIVE SERVICES SOCIAL WORKER Legal Sex Female 8:12 PM CDT Gender Identity Female 12/15/2018 11:48 AM CHILD PROTECTIVE SERVICES SOCIAL WORKER Sexual Orientation Straight 12/15/2018 11 :21 AM CHILD PROTECTIVE SERVICES SOCIAL WORKER documented as of this encounter Plan of Treatment Not on file documented as of this encounter Visit Diagnoses Diagnosis Unspecified injury of left wrist, hand and finger(s), subsequent encounter documented in this encounter
--- OUTSIDE RECORDS SUMMARY | 2024-10-22 20:56 | XMS_ITS | Encounter Summary ---
Author Organization [facility] Address [address] [place] [address]. [place], [place] [address] [place] [address] Care Team Providers Care Shipping And Receiving Material Handler Name Role Phone Unavailable Primary Care Provider Unavailabl e Encounter Details Date Type Department Care Team (Late st Contact Info) Description 08/29/2015 Abstract [facility] Medical Group Family & Internal Medicine [facility] [address] [place] [address] [place] [address] [place] [address] Social History Tobacco Use Types Packs/Day Years Used Date Smoking Tobacco: Never Assessed Comments Unknown Sex and Gender Information Value Date Recorded Sex Assigned at Female 12/15/2018 11:48 AM CLUTCH OPERATOR Legal Sex Female 8:12 PM CDT Gender Identity Female 12/15/2018 11:48 AM CLUTCH OPERATOR Sexual Orientation Straight 12/15/2018 11 :21 AM CLUTCH OPERATOR documented as of this encounter Last [...] Current Meds 1. Acidophilus Oral Capsule; Therapy: [id number] to Recorded 2. LORazepam 0.5 MG Oral Tablet; take 1/2 to 1 tab po BID prn anxiety; Therapy: 22Jqo3122 to (Last Rx:[id number]) Ordered 3. Sertraline HCl - 50 MG Oral Tablet; take 1/2 tab daily for one week then one tablet daily; Therapy: 04Feb2015 to (Last Rx:[id number]) Requested for: 24Vxv5606 Ordered 4. TraMADol HCl - 50 MG Oral Tablet; TAKE 1 TO 2 TABLETS EVERY 6 HOURS NEEDED FOR PAIN; Therapy: 02Feb2013 to (Evaluate:24Bmy7329); Last Rx:[id number] Ordered Allergies 1. Penicillins Vitals Recorded: 29Aug2015 [...] with anxiety; BIANCA = N; Sent To: [id number] 3. Avoid alcoholic beverages.; Status:Active; Requested for:29Aug2015; Ordered; For:Adjustment disorder with anxiety; Ordered By:Noé Hansen; 4. Avoid foods and beverages that contain caffeine.; Status:Active; Requested for:29Aug2015; Ordered; For:Adjustment disorder with anxiety; Ordered By:oNé Hansen; 5. Be sure to get at [...] we can help. You may also call [phone]-[phone] for free resources and assistance.; Status:Active; Requested [...] Noé Hansen NP; Aug 29 2015 1:33PM CLUTCH OPERATOR (Author) documented in this encounter Plan of Treatment Not on file documented as of this encounter Visit Diagnoses Not on filedocumented in this encounter
--- OUTSIDE RECORDS SUMMARY | 2024-10-22 20:56 | XMS_ITS | Encounter Summary ---
Author Organization [facility] Address [address] [place] [address]. [place], [place] [address] [place] [address] Care Team Providers Care Forensic Scientist Name Role Phone Unavailable Primary Care Provider Unavailabl e Encounter Details Date Type Department Care Team (Late st Contact Info) Description 12/28/2016 Abstract [facility] Medical Group Family & Internal Medicine [facility] [address] [place] [address] Elaine Rudolph MD Social History Tobacco Use Types Packs/Day Years Used Date Smoking Tobacco: Never Assessed Comments Unknown Sex and Gender Information Value Date Recorded Sex Assigned at Female 12/15/2018 11:48 AM CRM TECHNICAL LEAD Legal Sex Female 8:12 PM CDT Gender Identity Female 12/15/2018 11:48 AM CRM TECHNICAL LEAD Sexual Orientation Straight 12/15/2018 11 :21 AM CRM TECHNICAL LEAD documented as of this encounter Last Filed Vital Signs Vital Sign Reading Time Taken Comments Blood Pressure 114/62 12/28/2016 11:24 AM CRM TECHNICAL LEAD Pulse 91 12/28/2016 11:24 AM CRM TECHNICAL LEAD Temperature - - Respiratory Rate - - Oxygen Saturation - - Inhaled Oxygen Concentration - - Weight 74.6 kg (164 lb 6.1 oz) 12/28/2016 11:24 AM CRM TECHNICAL LEAD Height 167.6 cm (5' 6 ) 12/28/2016 11:24 AM CRM TECHNICAL LEAD Body Mass Index 26.53 12/28/2016 11:24 AM CRM TECHNICAL LEAD documented in this encounter Progress Notes * [...] TABLET BY MOUTH TWICE A DAY; Therapy: 35Nzl3614 to Recorded 2. Ibuprofen 600 MG Oral Tablet; TAKE 1 TABLET 3 TIMES DAILY NEEDED FOR PAIN; Therapy: 45Csd7203 to (Evaluate:36Csw9861) Requested for: 24Ozi6529; Last Rx:[id number] Ordered 3. Sertraline HCl - 50 MG Oral Tablet; TAKE 1 TABLET DAILY; Therapy: 94Kbh1086 to (Evaluate:82Kib3550) Requested for: 76Dzf6409; Last Rx:[id number] Ordered Allergies 1. Penicillins Vitals Recorded: 28Dec2016 [...] LT ( Routine ); Status:Active; Requested for:28Dec2016; Perform:[facility] Rad[facility]; Due:27Jan2017;Ordered; For:Injury of middle finger, left, subsequent encounter; Ordered By:Elaine Rudolph; RTC in 2-3 weeks if any concerns about healing otherwise RTC as scheduled Signatures Electronically signed by : Elaine Rudolph M.D.; Dec 28 2016 11:45AM CRM TECHNICAL LEAD (Author) documented in this encounter Plan of Treatment Not on file documented as of this encounter Procedures Procedure Name Priority Date/Time Associated Diagnosis Comments XR THIRD FINGER LT 3V Routine 12/28/2016 4:37 PM CRM TECHNICAL LEAD documented in this encounter Results * XR THIRD FINGER LT 3V (12/28/2016 4:37 PM CRM TECHNICAL LEAD) Anatomical Region Laterality Modality Hand Radiographic Alexandra ging 12/28/2016 4:37 PM CRM TECHNICAL LEAD 12/28/2016 4:37 PM CRM TECHNICAL LEAD Narrative 12/28/2016 4:44 PM CRM TECHNICAL LEAD GRACIE,JAMIR ? ADMIT/SERVICE DATE: 12/28/16 ?? ACCT: [id number] ?DISCHARGE DATE: ?? : 1975 ??SEX: F ?ORD SITE: [facility] ?? PT TYPE: REG CLI ? ORDERING MD: ELAINE RUDOLPH MD ? STUDY DATE ? REPORT # ?ORDER # ? EXT ORDER ID ?? 12/28/16 ? [id number] ? [id number] ?[id number] ? PROC CODE: ? [id number] ? PROCEDURE DESCRIPTION: ?? XR FINGER 3RD [...] - 08/27/2018 JAMIR BOWMAN ADMIT/SERVICE DATE:12/28/16 ACCT: [id number] DISCHARGE DATE: : 1975 SEX: F ORD SITE: [facility] PT TYPE: REG CLI ORDERING MD: ELVER RUDOLPH MD STUDY DATE REPORT # ORDER # EXT ORDER ID 12/28/16 [id number] PROC CODE: [id number] PROCEDURE DESCRIPTION: XR FINGER 3RD DIGIT MIDDLE [...]
--- OUTSIDE RECORDS SUMMARY | 2024-10-22 20:56 | XMS_ITS | Encounter Summary ---
Author Organization [facility] Address [address] [place] [address]. [place], [place] [address] [place] [address] Care Team Providers Care Forest Science Professor Name Role Phone Akilah Gardner TOP COLLAR MAKER Primary Care Provider Unavailabl e Reason for Visit * Reason Onset Date Comments Follow Up Call 09/05/2021 Encounter Details Date Type Department Care Team (Late st Contact Info) Description 09/05/2021 Telephone [facility] Medical Group Family & Internal Medicine [address] [address] Akilah Gardner, TOP COLLAR MAKER Follow Up Call Social History Tobacco Use [...] Sex Assigned at Female 12/15/2018 11:48 AM BULK SEALER Legal Sex Female 8:12 PM CDT Gender Identity Female 12/15/2018 11:48 AM BULK SEALER Sexual Orientation Straight 12/15/2018 11 :21 AM BULK SEALER Occupation Industry Job Start Date Job [...] Pt returned your call please advise CB# [phone] documented in this encounter Plan of Treatment Not on file documented as of this encounter Visit Diagnoses Not on filedocumented in this encounter Additional Health Concerns Assessment Noted Time PHQ-9 Depression Total Score: 14 021 8:58 AM CDT documented as of this encounter Care Teams Forest Science Professor Relationship Specialty Start Date End Date Akilah Gardner, OTONIEL PCP - General NURSE PRACTITIONER 09/01/21 08/02/22 documented as of this encounter
--- OUTSIDE RECORDS SUMMARY | 2024-10-22 20:56 | XMS_ITS | Encounter Summary ---
Author Organization [facility] Address [address] [place] [address]. [place], [place] [address] [place] [address] Care Team Providers Care Philosophy Professor Name Role Phone Chantelle Hong HAND STRIPPER Primary Care Provider Unav ailable Encounter Details [...] Sex Assigned at Female 12/15/2018 11:48 AM PORTFOLIO ACCOUNTANT Legal Sex Female 8:12 PM CDT Gender Identity Female 12/15/2018 11:48 AM PORTFOLIO ACCOUNTANT Sexual Orientation Straight 12/15/2018 11 :21 AM PORTFOLIO ACCOUNTANT Occupation Industry Job Start Date Job End [...] documented as of this encounter Care Teams Philosophy Professor Relationship Specialty Start Date End Date Chantelle Hong NP PCP - General NURSE PRACTITIONER 12/15/18 08/31/21 documented as of this encounter
--- OUTSIDE RECORDS SUMMARY | 2024-10-22 20:56 | XMS_ITS | Encounter Summary ---
Author Organization [facility] Address [address] [place] [address]. [place] [id number] [place] [address] Care Team Providers Care Embossing Press Operator Name Role Phone Unavailable Primary Care Provider Unavailabl e Encounter Details Date Type Department Care Team (Latest Contact Info) Description 05/01/2017 Abstract [facility] Medical Group Noé Hansen, HEALTH SCIENCES DEPARTMENT CHAIR Social History Tobacco Use Types Packs/Day Years Used Date Smoking Tobacco: Never Assessed Comments Unknown Sex and Gender Information Value Date Recorded Sex Assigned at Female 12/15/2018 11:48 AM GAME DESIGNER/CREATIVE DIRECTOR Legal Sex Female 8:12 PM CDT Gender Identity Female 12/15/2018 11:48 AM GAME DESIGNER/CREATIVE DIRECTOR Sexual Orientation Straight 12/15/2018 11 :21 AM GAME DESIGNER/CREATIVE DIRECTOR documented as of this encounter Plan of Treatment Not on file documented as of this encounter Visit Diagnoses Not on filedocumented in this encounter
--- OUTSIDE RECORDS SUMMARY | 2024-10-22 20:56 | XMS_ITS | Encounter Summary ---
Author Organization [facility] Address [address] [place] [address]. [place], [place] [address] [place] [address] Care Team Providers Care Cuff Folder Name Role Phone Jazmyne Pollock NP Primary Care Provider Unav ailable Reason for Visit * Reason Comments Shoulder Pain R shoulder pain sinc e Saturday night Encounter Details Date Type Department Care Team (Late st Contact Info) Description 07/01/2020 9:40 AM CDT Office Visit [facility] Medical Group Family & Internal Medicine - [place] [address] [place] [address] Doris Olson, NIURKA [address] [facility] [address] [place] [address] Shoulder Pain (R shoulder pain [...] Sex Assigned at Female 12/15/2018 11:48 AM FORMING ROLL OPERATOR Legal Sex Female 8:12 PM CDT Gender Identity Female 12/15/2018 11:48 AM FORMING ROLL OPERATOR Sexual Orientation Straight 12/15/2018 11 :21 AM FORMING ROLL OPERATOR Occupation Industry Job Start Date Job End Date [employer] Not on file Not on file [...] or blue. Where can I learn more? [employer] http://familydoctor.org/familydoctor/en/prevention-wellness/exercise-fitness/inj ury-rehab/shoulder-pain.html [employer] http://orthoinfo.aaos.org/PDFs/Q47967.pdf Last Reviewed Date 2018-05-19 Consumer Information Use [...] right for you. Copyright Copyright ?? 2020 [employer]. and its affiliates and/or licensors. All rights [...] college, no degree Occupational History ??? Occupation: [employer] Social Needs ??? Financial resource strain: [...] documented as of this encounter Care Teams Cuff Folder Relationship Specialty Start Date End Date Jazmyne Pollock NP PCP - General NURSE PRACTITIONER 12/15/18 08/31/21 documented as of this encounter
--- OUTSIDE RECORDS SUMMARY | 2024-10-22 20:56 | XMS_ITS | Encounter Summary ---
Author Organization [facility] Address [address] [place] [address]. [place], [place] [address] [place] [address] Care Team Providers Care Computer Systems Technician Name Role Phone Chantelle Hong CERTIFIED ENDOSCOPY TECHNICIAN Primary Care Provider Unav ailable Encounter Details Date Type Department Care Team (Late st Contact Info) Description 11/27/2019 12:57 PM FORMING MACHINE UPKEEP MECHANIC HELPER - 11/27/2019 11:59 PM FORMING MACHINE UPKEEP MECHANIC HELPER Hospital Encounter [facility] [address] [place] [phone] Chantelle Hong CERTIFIED ENDOSCOPY TECHNICIAN Discharge Disposition: Home or Self Care (Routine [...] Assigned at Female 12/15/2018 11:48 AM FORMING MACHINE UPKEEP MECHANIC HELPER Legal Sex Female 8:12 PM CDT Gender Identity Female 12/15/2018 11:48 AM FORMING MACHINE UPKEEP MECHANIC HELPER Sexual Orientation Straight 12/15/2018 11 :21 AM FORMING MACHINE UPKEEP MECHANIC HELPER Occupation Industry Job Start Date Job End Date [employer] Not on file Not on [...] as we get results. Thank you delmar ING MACHINE UPKEEP MECHANIC HELPER documented in this encounter Plan of Treatment Not on file documented as of this encounter Procedures Procedure Name Priority Date/Time Associated Diagnosis Comments TSH W/REFLEX Routine 11/27/2019 10:20 AM FORMING MACHINE UPKEEP MECHANIC HELPER Fatigue RHEUMATOID FACTOR, QUANT Routine 11/27/2019 10:20 AM FORMING MACHINE UPKEEP MECHANIC HELPER Joint pain SED RATE, ERYTHROCYTE (ESR) Routine 11/27/2019 10:20 AM FORMING MACHINE UPKEEP MECHANIC HELPER Joint pain COMPREHENSIVE METABOLIC PANEL Routine 11/27/2019 10:20 AM FORMING MACHINE UPKEEP MECHANIC HELPER Fatigue CBC W/DIFF AUTOMATED Routine 11/27/2019 10:20 AM FORMING MACHINE UPKEEP MECHANIC HELPER Fatigue THYROXINE, FREE (FT4) Routine 11/27/2019 10:20 AM FORMING MACHINE UPKEEP MECHANIC HELPER documented in this encounter Results * THYROXINE, FREE (FT4) (11/27/2019 10:20 AM FORMING MACHINE UPKEEP MECHANIC HELPER) FREE T4 1.30 0.76 - 1.46 NG/DL 11/27/2019 1:53 PM FORMING MACHINE UPKEEP MECHANIC HELPER [facility] 11/27/2019 10:2 0 AM FORMING MACHINE UPKEEP MECHANIC HELPER Chantelle Hong NP LABORATORY Final Resul t Performing Organization Address City/[facility]/ZIP Co de Phone Number [facility] [address] [place] [address], [place] [phone] * (ABNORMAL) TSH W/REFLEX (11/27/2019 10:20 AM FORMING MACHINE UPKEEP MECHANIC HELPER) Pathologist [facility] TSH 0.010(L) 0.358 - 3.74 uIU/ML 11/27/2019 1:34 PM FORMING MACHINE UPKEEP MECHANIC HELPER [facility] Comment: HIGH DOSES OF BIOTIN MAY INTERFERE WITH THIS TEST RESULT. CORRELATION TO CLINICAL HISTORY AND PRESENTATION RECOMMENDED. 11/27/2019 10:2 0 AM FORMING MACHINE UPKEEP MECHANIC HELPER Chantelle Hong NP LABORATORY Final Resul t Performing Organization Address City/[facility]/ZIP Co de Phone Number [facility] [address] [place] [address], [place] [phone] * COMPREHENSIVE METABOLIC PANEL (11/27/2019 10:20 AM FORMING MACHINE UPKEEP MECHANIC HELPER) GLUCOSE 98 70 - 99 MG/DL 11/27/2019 1:34 PM [facility] BUN 8 7 - 18 MG/DL 11/27/2019 1:34 PM [facility] CREATININE S/P/B 0.73 0.55 - 1.02 MG/DL 11/27/2019 1:34 PM [facility] SODIUM S/P/B 139 136 - 145 MMOL/L 11/27/2019 1:34 PM [facility] POTASSIUM S/P/B 4.0 3.5 - 5.1 MMOL/L 11/27/2019 1:34 PM [facility] CHLORIDE S/P/B 104 100 - 108 MMOL/L 11/27/2019 1:34 PM [facility] CO2 23.7 21 - 32 MMOL/L 11/27/2019 1:34 PM [facility] CALCIUM S/P/B 9.3 8.5 - 10.1 MG/DL 11/27/2019 1:34 PM [facility] BILIRUBIN TOTAL S/P/B 0.6 0.2 - 1.2 MG/DL 11/27/2019 1:34 PM [facility] TOTAL PROTEIN S/P/B 7.3 6.4 - 8.2 G/DL 11/27/2019 1:34 PM [facility] ALBUMIN S/P/B 4.2 3.4 - 5.0 G/DL 11/27/2019 1:34 PM [facility] AST 15 15 - 37 U/L 11/27/2019 1:34 PM [facility] ALT 19 14 - 55 U/L 11/27/2019 1:34 PM [facility] ALKALINE PHOSPHATASE S/P/B 67 50 - 136 U/L 11/27/2019 1:34 PM [facility] ANION GAP 11.3 5 - 15 MMOL/L 11/27/2019 1:34 PM [facility] BUN CREATININE RATIO 11.0 6 - 26 11/27/2019 1:34 PM [facility] A/G RATIO 1.4 1.0 - 2.0 RATIO 11/27/2019 1:34 PM [facility] EGFR NON-AFR. AMER. >90 >90 ML/MIN/1.7 3 M2 11/27/2019 1:34 PM [facility] EGFR AFR. AMER. >90 >90 ML/MIN/1.7 3 M2 11/27/2019 1:34 PM [facility] Comment: NOTE: eGFR is not calculated for patients <18 years of age. This is an estimated GFR (CKD EPI) and should not be used for calculating drug doses. 11/27/2019 10:2 0 AM FORMING MACHINE UPKEEP MECHANIC HELPER us Chantelle Hong CERTIFIED ENDOSCOPY TECHNICIAN LABORATORY Final Resul t [facility] [address] [place] [address], * (ABNORMAL) CBC W/DIFF AUTOMATED (11/27/2019 10:20 AM FORMING MACHINE UPKEEP MECHANIC HELPER) WBC 5.7 4.4 - 11.0 x10'3/uL 11/27/2019 1:10 PM [facility] RBC 4.02(L) 4.50 - 5.10 x10'6/uL 11/27/2019 1:10 PM [facility] HGB 12.8 12.3 - 15.3 G/DL 11/27/2019 1:10 PM [facility] HCT 38.9 35.9 - 44.6 % 11/27/2019 1:10 PM [facility] MCV 96.8(H) 80.0 - 96.0 FL 11/27/2019 1:10 PM [facility] MCH 31.8(H) 25.3 - 30.9 PG 11/27/2019 1:10 PM [facility] MCHC 32.9 31.0 - 34.1 G/DL 11/27/2019 1:10 PM [facility] RDW 11.9(L) 12.4 - 15.1 % 11/27/2019 1:10 PM [facility] PLT 155 151 - 353 x10'3/uL 11/27/2019 1:10 PM [facility] MPV 11.7 9.6 - 12.0 FL 11/27/2019 1:10 PM [facility] RBC MORPHOLOGY NORMAL 11/27/2019 1:10 PM [facility] PLT MORPH. NORMAL 11/27/2019 1:10 PM [facility] WBC MORPHOLOGY NORMAL 11/27/2019 1:10 PM [facility] LYMPHOCYTES % 39.3 15.8 - 45.0 % 11/27/2019 1:10 PM [facility] NEUTROPHILS % 48.4 42.1 - 71.9 % 11/27/2019 1:10 PM [facility] MONOCYTES % 9.3 5.7 - 12.5 % 11/27/2019 1:10 PM [facility] EOSINOPHILS 2.1 0.0 - 5.6 % 11/27/2019 1:10 PM [facility] BASOPHILS 0.7 0.0 - 1.3 % 11/27/2019 1:10 PM [facility] ABS. NEUTROPHILS TOTAL 2.75 1.40 - 6.00 x10'3/uL 11/27/2019 1:10 PM FORMING MACHINE UPKEEP MECHANIC HELPER [facility] IMMATURE GRANS % 0.2 0.0 - 0.5 % 11/27/2019 1:10 PM FORMING MACHINE UPKEEP MECHANIC HELPER [facility] ABS. LYMPHOCYTES 2.23 0.80 - 4.70 x10'3/uL 11/27/2019 1:10 PM FORMING MACHINE UPKEEP MECHANIC HELPER [facility] 11/27/2019 10:2 0 AM FORMING MACHINE UPKEEP MECHANIC HELPER Chantelle Hong NP LABORATORY Final Resul t Performing Organization Address City/[facility]/ZIP Co de Phone Number [facility] [address] [place] [address], [place] [phone] * RHEUMATOID FACTOR, QUANT (11/27/2019 10:20 AM FORMING MACHINE UPKEEP MECHANIC HELPER) RHEUMATOID FACTOR <10 <15 IU/ML 11/27/2019 8:02 PM FORMING MACHINE UPKEEP MECHANIC HELPER [facility] 11/27/2019 10:2 0 AM FORMING MACHINE UPKEEP MECHANIC HELPER Chantelle Hong NP LABORATORY Final Resul t Performing Organization Address [facility] [place]/[facility] Co de Phone Number [facility] [address] [place] [address], [place] [phone] * (ABNORMAL) SED RATE, ERYTHROCYTE (ESR) (11/27/2019 10:20 AM FORMING MACHINE UPKEEP MECHANIC HELPER) ESR 21(H) 0 - 20 MM/HR 11/27/2019 1:31 PM FORMING MACHINE UPKEEP MECHANIC HELPER [facility] 11/27/2019 10:2 0 AM FORMING MACHINE UPKEEP MECHANIC HELPER Chantelle Hong NP LABORATORY Final Resul t Performing Organization Address City/[facility]/ZIP Co de Phone Number [facility] [address] [place], [place] [address] [place] [address] documented in this encounter Visit Diagnoses Diagnosis Joint pain Pain in joint, site unspecified Fatigue Other malaise and fatigue documented in this encounter Care Teams Computer Systems Technician Relationship Specialty Start Date End Date Chantelle Hong, OTONIEL PCP - General NURSE PRACTITIONER 12/15/18 08/31/21 documented as of this encounter
--- OUTSIDE RECORDS SUMMARY | 2024-10-22 20:56 | XMS_ITS | Encounter Summary ---
Author Organization [facility] Address [address] [place] [address]. [place] [id number] [address] Care Team Providers Care Automation Test Developer Name Role Phone Unavailable Primary Care Provider Unavailabl e Encounter Details Date Type Department Care Team (Latest Contact Info) Description 07/26/2017 Abstract [facility] Medical Group Social History Tobacco Use Types Packs/Day Years Used Date Smoking Tobacco: Never Assessed Comments Unknown Sex and Gender Information Value Date Recorded Sex Assigned at Female 12/15/2018 11:48 AM DIRECTOR OF RECREATION THERAPY Legal Sex Female 8:12 PM CDT Gender Identity Female 12/15/2018 11:48 AM DIRECTOR OF RECREATION THERAPY Sexual Orientation Straight 12/15/2018 11 :21 AM DIRECTOR OF RECREATION THERAPY documented as of this encounter Plan of Treatment Not on file documented as of this encounter Visit Diagnoses Not on filedocumented in this encounter
--- OUTSIDE RECORDS SUMMARY | 2024-10-22 20:56 | XMS_ITS | Encounter Summary ---
Author Organization [facility] Address [address] [place] [address]. [place], [place] [address] [place] [address] Care Team Providers Care Supervisor Drying And Softening Name Role Phone Unavailable Primary Care Provider Unavailabl e Encounter Details Date Type Department Care Team (Late st Contact Info) Description 10/15/2013 Abstract [facility] Emergency Room [address] [place] [address] Kenji Chandler MD [address] [address] Social History Tobacco Use Types Packs/Day Years Used Date Smoking Tobacco: Never Assessed Comments Unknown Sex and Gender Information Value Date Recorded Sex Assigned at Female 12/15/2018 11:48 AM MEN'S AND BOYS' CLOTHING SALESPERSON Legal Sex Female 8:12 PM CDT Gender Identity Female 12/15/2018 11:48 AM MEN'S AND BOYS' CLOTHING SALESPERSON Sexual Orientation Straight 12/15/2018 11 :21 AM MEN'S AND BOYS' CLOTHING SALESPERSON documented as of this encounter Plan of Treatment Not on file documented as of this encounter Visit Diagnoses Diagnosis Otitis media Unspecified otitis media documented in this encounter
--- OUTSIDE RECORDS SUMMARY | 2024-10-22 20:56 | XMS_ITS | Encounter Summary ---
Author Organization [facility] Address [address] [place] [address]. [place], [place] [address] [place] [address] Care Team Providers Care Videogame Tester Name Role Phone Chantelle Hong NP Primary Care Provider Unav ailable Encounter Details Date Type Department Care Team (Late st Contact Info) Description 11/30/2019 Orders Only [facility] Medical Group Family & Internal Medicine [facility] [address] [place] [address] Chantelle Hong, OTONIEL Social History [...] Sex Assigned at Female 12/15/2018 11:48 AM DISINTEGRATOR Legal Sex Female 8:12 PM CDT Gender Identity Female 12/15/2018 11:48 AM DISINTEGRATOR Sexual Orientation Straight 12/15/2018 11 :21 AM DISINTEGRATOR Occupation Industry Job Start Date Job End Date [employer] Not on file Not on file Not on file documented as of this encounter Plan of Treatment Not on file documented as of this encounter Visit Diagnoses Diagnosis Low TSH level- Primary Nonspecific abnormal results of thyroid function study Elevated sed rate Elevated sedimentation rate Irritation of both eyes Other ill-defined disorder of eye documented in this encounter Care Teams Videogame Tester Relationship Specialty Start Date End Date Chantelle Hong NP PCP - General NURSE PRACTITIONER 12/15/18 08/31/21 documented as of this encounter
--- OUTSIDE RECORDS SUMMARY | 2024-10-22 20:56 | XMS_ITS | Encounter Summary ---
Author Organization [facility] Address [address] [place] [address]. [place], [place] [address] [place] [address] Care Team Providers Care Distribution Lineman Name Role Phone Akilah Pabon NP Primary [...] Expiration Date Visits Re quested Visits Authorized [id number] Closed 08/27/2022 08/27/2023 1 1 Reason for Visit * Reason Comments Meet and Greet Provider establish care/d iscuss medications previous Isatu Hong patient Encounter Details Date Type Department Care Team (Late st Contact Info) Description 09/04/2021 8:40 AM CDT Office Visit [facility] Medical Group Family & Internal Medicine [address] [address] Akilah Pabon, OTONIEL Meet and [...] Sex Assigned at Female 12/15/2018 11:48 AM BOTTOM CRANE OPERATOR Legal Sex Female 8:12 PM CDT Gender Identity Female 12/15/2018 11:48 AM BOTTOM CRANE OPERATOR Sexual Orientation Straight 12/15/2018 11 :21 AM BOTTOM CRANE OPERATOR Occupation Industry Job Start Date Job [...] Written [facility] the doctors and editors at [facility] What is depression???--??Depression is a disorder that [...] (with a psychiatrist, psychologist, nurse, or social science teacher) ?? A device that passes magnetic waves [...] process is complete. This topic retrieved from [employer]sl[employer] on: Jun 22, 2021. Topic 94094 Version 16.0 Release: 29.4.2 - C29.229 ?2020??[employer] and/or its affiliates.??All rights reserved. figure 1: Mood disorders caused by problems in the brain Mood disorders, such as depression and bipolar disorder, are caused by chemical imbalances in the brain. Treatments for these conditions work by changing the chemistry of the brain. Graphic 84411 Version 3.0 Consumer Information Use and Disclaimer [...] of this information is governed by the [employer] End User License Agreement, available at [email or web address] [email or web address]/[email or web address]/[email or web address]/ismael.The use of Craigslist content is governed by the Craigslist Terms of Use. ??2020 [employer]. All rights reserved. Copyright ?2020??[employer] and/or its affiliates.??All rights reserved. 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 Occupation: [employer] Tobacco Use ??? Smoking status: Current Every [...] Gatherings with Friends and Family: ??? Attends Scientology Services: ??? Active Member of Clubs or [...] against influenza Z23 V04.81 NEEDS INFLUENZA IMMUNIZATION [93981] FLU VACCQUAD 6 MONTHS+ 0.5 ML (SINGLE [...] 6. Need for immunization against influenza - [29194] FLU VACC QUAD 6 MONTHS+ 0.5 ML [...] - 217 MG/DL 09/04/2021 2:[address] [facility] MICROALBUMIN (U) 0.5 <2.0 mg/dL 09/04/20 21 2:[address] [facility] ALBUMIN/CREAT RATIO 3.8 <30.0 MG/G 09/04/2021 2:[address] [facility] URINE SPECIMEN / Unknown 09/04/2021 10:08 AM CDT us Akilah Pabon NP URINE ORDERABLES Final Result Performing Organization Address [facility] de Phone Number [facility] [address] [place] [address], [place] [phone] * (ABNORMAL) VITAMIN D, 25 [place] (09/04/2021 10:08 AM CDT) VITAMIN D 25 HYDROXY S/P/B 29(L) 30 - 100 NG/ML 09/04/2021 2:[address] [facility] Comment: ? INTERPRETATION ? DEFICIENT ??<20 ? INSUFFICIENT 20-29 ?SUFFICIENT 30-100 09/04/2021 10:0 8 AM CDT us Akilah Pabon NP LABORATORY Final Result Performing Organization Address [facility] de Phone Number [facility] [address] [place] [address], [place] [phone] * (ABNORMAL) TSH W/REFLEX (09/04/2021 10:08 AM CDT) TSH <0.007(L) 0.358 - 3.74 uIU/ML 09/04/2021 3:[address] [facility] Comment: HIGH DOSES OF BIOTIN MAY INTERFERE WITH THIS TEST RESULT. CORRELATION TO CLINICAL HISTORY AND PRESENTATION RECOMMENDED. 09/04/2021 10:0 8 AM CDT us Akilah Pabon NP LABORATORY Final Result Performing Organization Address [facility] de Phone Number [facility] [address] [place] [address], * (ABNORMAL) LIPID PANEL (09/04/2021 10:08 AM CDT) [facility] Signature CHOLESTEROL 181 <200.0 MG/DL 09/04/2021 3:[address] [facility] TRIGLYCERIDES 123 <150 MG/DL 09/04/2021 3:[address] [facility] HDL 46 >40.0 MG/DL 09/04/2021 3:[address] [facility] LDL (CALCULATED) 110(H) <100 MG/DL 09/04/2021 3:[address] [facility] NON HDL CHOLESTEROL 135(H) <130 MG/DL 09/04/2021 3:[address] [facility] CHOL/HDL RATIO 3.9 0.0 - 4.5 09/04/2021 3:[address] [facility] VLDL CALCULATION 25 5 - 55 MG/DL 09/04/2021 3:[address] [facility] LIPID INTERPRETATION 09/04/2021 3:[address] [facility] Comment: NIH CONCENSUS REPORT [...] NP LABORATORY Final Result Performing Organization Address [facility]/State/ZIP Co de Phone Number [facility] [address] [place] [address], * (ABNORMAL) COMPREHENSIVE METABOLIC PANEL (09/04/2021 10:08 AM CDT) GLUCOSE 97 70 - 99 MG/DL 09/04/2021 3:[address] [facility] BUN 12 7 - 18 MG/DL 09/04/2021 3:[address] [facility] CREATININE S/P/B 0.53(L) 0.55 - 1.02 MG/DL 09/04/2021 3:[address] [facility] SODIUM S/P/B 143 136 - 145 MMOL/L 09/04/2021 3:[address] [facility] POTASSIUM S/P/B 4.6 3.5 - 5.1 MMOL/L 09/04/2021 3:[address] [facility] CHLORIDE S/P/B 106 100 - 108 MMOL/L 09/04/2021 3:[address] [facility] CO2 30.1 21 - 32 MMOL/L 09/04/2021 3:[address] [facility] CALCIUM S/P/B 9.5 8.5 - 10.1 MG/DL 09/04/2021 3:[address] [facility] BILIRUBIN TOTAL S/P/B 0.4 0.2 - 1.2 MG/DL 09/04/2021 3:[address] [facility] TOTAL PROTEIN S/P/B 6.5 6.4 - 8.2 G/DL 09/04/2021 3:[address] [facility] ALBUMIN S/P/B 3.9 3.4 - 5.0 G/DL 09/04/2021 3:[address] [facility] AST 19 15 - 37 U/L 09/04/2021 3:57 PM [facility] ALT 24 14 - 55 U/L 09/04/2021 3:57 PM [facility] ALKALINE PHOSPHATASE S/P/B 101 50 - 136 U/L 09/04/2021 3:[address] [facility] ANION GAP 6.9 5 - 15 MMOL/L 09/04/2021 3:[address] [facility] BUN CREATININE RATIO 22.6 6 - 26 09/04/2021 3:[address] [facility] A/G RATIO 1.5 1.0 - 2.0 RATIO 09/04/2021 3:[address] [facility] EGFR NON-AFR. AMER. >90 >90 ML/MIN/1.7 3 M2 09/04/2021 3:[address] [facility] EGFR AFR. AMER. >90 >90 ML/MIN/1.7 3 M2 09/04/2021 3:[address] [facility] Comment: NOTE: eGFR is not calculated for patients <18 years of age. This is an estimated GFR (CKD EPI) and should not be used for calculating drug doses. 09/04/2021 10:0 8 AM CDT Akilah Pabon NP LABORATORY Final Result [facility] [address] [place] [address], [place] [phone] * (ABNORMAL) CBC W/DIFF AUTOMATED (09/04/2021 10:08 AM CDT) WBC 4.5 4.4 - 11.0 x10'3/uL 09/04/2021 1:[address] [facility] RBC 4.35(L) 4.50 - 5.10 x10'6/uL 09/04/2021 1:[address] [facility] HGB 13.2 12.3 - 15.3 G/DL 09/04/2021 1:[address] [facility] HCT 39.8 35.9 - 44.6 % 09/04/2021 1:[address] [facility] MCV 91.5 80.0 - 96.0 FL 09/04/2021 1:[address] [facility] MCH 30.3 25.3 - 30.9 PG 09/04/2021 1:[address] [facility] MCHC 33.2 31.0 - 34.1 G/DL 09/04/2021 1:[address] [facility] RDW 12.0(L) 12.4 - 15.1 % 09/04/2021 1:[address] [facility] PLT 121(L) 151 - 353 x10'3/uL 09/04/2021 1:[address] [facility] MPV 12.4(H) 9.6 - 12.0 FL 09/04/2021 1:[address] [facility] RBC MORPHOLOGY NORMAL 09/04/2021 1:[address] [facility] PLT MORPH. NORMAL 09/04/2021 1:[address] [facility] WBC MORPHOLOGY NORMAL 09/04/2021 1:[address] [facility] LYMPHOCYTES % 40.6 15.8 - 45.0 % 09/04/2021 1:[address] [facility] NEUTROPHILS % 44.9 42.1 - 71.9 % 09/04/2021 1:[address] [facility] MONOCYTES % 9.3 5.7 - 12.5 % 09/04/2021 1:[address] [facility] EOSINOPHILS 4.6 0.0 - 5.6 % 09/04/2021 1:[address] [facility] BASOPHILS 0.4 0.0 - 1.3 % 09/04/2021 1:[address] [facility] ABS. NEUTROPHILS 2.03 1.40 - 6.00 x10'3/uL 09/04/2021 1:[address] [facility] IMMATURE GRANS % 0.2 0.0 - 0.5 % 09/04/2021 1:[address] [facility] ABS. LYMPHOCYTES 1.84 0.80 - 4.70 x10'3/uL 09/04/2021 1:[address] [facility] 09/04/2021 10:0 8 AM CDT us Akilah Pabon ROUSTABOUT HAND LABORATORY Final Result Performing Organization Address City/State/[facility] Co de Phone Number [facility] [address] [place] [address], [place] [phone] documented in this encounter Visit Diagnoses Diagnosis [...] documented as of this encounter Care Teams Distribution Lineman Relationship Specialty Start Date End Date Akilah Pabon, ROUSTABOUT HAND PCP - General NURSE PRACTITIONER 09/01/21 08/02/22 documented as of this encounter
--- OUTSIDE RECORDS SUMMARY | 2024-10-22 20:56 | XMS_ITS | Encounter Summary ---
Author Organization [facility] Address [address] [place] [address]. [place], [place] [address] [place] [address] Care Team Providers Care Erp Manager Name Role Phone Chantelle Hong COMMUNICATIONS SUPERVISOR Primary Care Provider Unav ailable Encounter Details Date Type Department Care Team (Late st Contact Info) Description 03/15/2021 Orders Only [facility] Medical Group Family & Internal Medicine [facility] [address] [place] [address] Chantelle Hong, COMMUNICATIONS SUPERVISOR Social History Tobacco Use Types Packs/Day Years [...] Sex Assigned at Female 12/15/2018 11:48 AM SEMICONDUCTOR PACKAGES TESTER Legal Sex Female 8:12 PM CDT Gender Identity Female 12/15/2018 11:48 AM SEMICONDUCTOR PACKAGES TESTER Sexual Orientation Straight 12/15/2018 11 :21 AM SEMICONDUCTOR PACKAGES TESTER Occupation Industry Job Start Date Job [...] documented as of this encounter Care Teams Erp Manager Relationship Specialty Start Date End Date Chantelle Hong NP PCP - General NURSE PRACTITIONER 12/15/18 08/31/21 documented as of this encounter
--- OUTSIDE RECORDS SUMMARY | 2024-10-22 20:56 | XMS_ITS | Encounter Summary ---
Author Organization [facility] Address [address] [place] [address]. [place], [place] [address] [place] [address] Care Team Providers Care Boring Mill Set Up Operator Name Role Phone Unavailable Primary Care Provider Unavailabl e Encounter Details Date Type Department Care Team (Late st Contact Info) Description 12/05/2016 Abstract [facility] Diagnostic Imaging [address] [place] [address] Mónica Crystal MD Social History Tobacco Use Types Packs/Day Years Used Date Smoking Tobacco: Never Assessed Comments Unknown Sex and Gender Information Value Date Recorded Sex Assigned at Female 12/15/2018 11:48 AM AGRICULTURAL EQUIPMENT SALES MANAGER Legal Sex Female 8:12 PM CDT Gender Identity Female 12/15/2018 11:48 AM AGRICULTURAL EQUIPMENT SALES MANAGER Sexual Orientation Straight 12/15/2018 11 :21 AM AGRICULTURAL EQUIPMENT SALES MANAGER documented as of this encounter Plan of Treatment Not on file documented as of this encounter Visit Diagnoses Diagnosis Unspecified injury of left wrist, hand and finger(s), initial encounter documented in this encounter
--- OUTSIDE RECORDS SUMMARY | 2024-10-22 20:56 | XMS_ITS | Encounter Summary ---
Author Organization [facility] Address [address] [place] [address]. [place], [place] [address] [place] [address] Care Team Providers Care Debt Collector Name Role Phone Unavailable Primary Care Provider Unavailabl e Encounter Details Date Type Department Care Team (Late st Contact Info) Description 12/05/2016 Abstract [facility] Medical Group Family & Internal Medicine [facility] [address] [place] [address] Elaine Rudolph MD Social History Tobacco Use Types Packs/Day Years Used Date Smoking Tobacco: Never Assessed Comments Unknown Sex and Gender Information Value Date Recorded Sex Assigned at Female 12/15/2018 11:48 AM BOAT CANVAS INSTALLER Legal Sex Female 8:12 PM CDT Gender Identity Female 12/15/2018 11:48 AM BOAT CANVAS INSTALLER Sexual Orientation Straight 12/15/2018 11 :21 AM BOAT CANVAS INSTALLER documented as of this encounter Last Filed Vital Signs Vital Sign Reading Time Taken Comments Blood Pressure 110/64 12/05/2016 10:47 AM BOAT CANVAS INSTALLER Pulse 95 12/05/2016 10:47 AM BOAT CANVAS INSTALLER Temperature - - Respiratory Rate - - Oxygen Saturation - - Inhaled Oxygen Concentration - - Weight 75.3 kg (166 lb) 12/05/2016 10:47 AM BOAT CANVAS INSTALLER Height 167.6 cm (5' 6 ) 12/05/2016 10:47 AM BOAT CANVAS INSTALLER Body Mass Index 26.79 12/05/2016 10:47 AM BOAT CANVAS INSTALLER documented in this encounter Progress Notes * [...] FINGER-3RD DIGIT (MIDLE) LT ( Routine ) [id number] 11:41AM Elaine Rudolph Test Name Result Flag Reference XR FINGER-3RD DIGIT (MIDLE) LT (Report) JAMIR BOWMAN ADMIT/SERVICE DATE: 12/05/16 ACCT: [id number] DISCHARGE DATE: : 1975 SEX: F ORD SITE: [facility] PT TYPE: REG CLI ORDERING MD: ELAINE RUDOLPH MD STUDY DATE REPORT # ORDER # EXT ORDER ID 12/05/16 [id number] PROC CODE: [id number] PROCEDURE DESCRIPTION: XR FINGER 3RD DIGIT MIDDLE [...] from a fall. (was playing on the [employer] ) Symptoms: finger pain, finger tenderness, finger [...] EVERY 6 HOURS NEEDED FOR PAIN; Therapy: [id number] to (Evaluate:[id number]); Last Rx:[id number] Ordered Rx By: Noé Hansen; Dispense: 5 Days ; #:20 Tablet; Refill: 0; For: PMH: Contusion of shoulder, left, PMH: Left shoulder pain; BIANCA = N; Print Rx; Last Updated By: Gerri Sanchez; 12/05/2016 10:51:12 AM 2. Ibuprofen 200 MG Oral Tablet; take 3 tablets every 6 hours for pain; take with food; Therapy: 56Pav5536 to (Last Rx:[id number]) Ordered Rx By: Noé Hansen; Dispense: 0 [...] TAKE 1 TABLET DAILY; Therapy: 04Feb2015 to (Evaluate:77Gat0081) Requested for: 93Njk2583; Last Rx:[id number] Ordered Rx By: Noé Hansen; Dispense: 90 Days ; #:90 Tablet; Refill: 2; For: Adjustment disorder with anxiety; BIANCA = N; Verified Transmission to [id number]; Last Updated By: Penny Eden; 09/18/2016 4:45:24 PM Allergies 1. Penicillins Recorded By: Marli Duke; 10/20/2012 10:26:31 AM Vitals Recorded: 17Tgs7884 10:47AM Temperature 98.8 F Heart Rate 95 [...] LT ( Routine ); Status:Active; Requested for:05Dec2016; Perform:[facility] Radiology; Due:04Jan2017;Ordered; For:Injury of middle finger, left, initial encounter; Ordered By:Elaine Rudolph; RTC as scheduled or sooner if no improvement Signatures Electronically signed by : Elaine Rudolph M.D.; Dec 05 2016 11:11AM BOAT CANVAS INSTALLER (Author) documented in this encounter Plan of Treatment Not on file documented as of this encounter Procedures Procedure Name Priority Date/Time Associated Diagnosis Comments XR THIRD FINGER LT 3V Routine 12/05/2016 11:41 AM BOAT CANVAS INSTALLER documented in this encounter Results * XR THIRD FINGER LT 3V (12/05/2016 11:41 AM BOAT CANVAS INSTALLER) Anatomical Region Laterality Modality Hand Radiographic Alexandra ging 12/05/2016 11:4 1 AM BOAT CANVAS INSTALLER 12/05/2016 11:41 AM BOAT CANVAS INSTALLER Narrative 12/05/2016 11:46 AM BOAT CANVAS INSTALLER JAMIR BOWMAN ? ADMIT/SERVICE DATE: 12/05/16 ?? ACCT: [id number] ?DISCHARGE DATE: ?? : 1975 ??SEX: F ?ORD SITE: [facility] ?? PT TYPE: REG CLI ? ORDERING MD: ELAINE RUDOLPH MD ? STUDY DATE ? REPORT # ?ORDER # ? EXT ORDER ID ?? 12/05/16 ? [id number] ? [id number] ?[id number] ? PROC CODE: ? [id number] ? PROCEDURE DESCRIPTION: ?? XR FINGER 3RD [...] - 08/29/2018 JAMIR BOWMAN ADMIT/SERVICE DATE:12/05/16 ACCT: [id number] DISCHARGE DATE: : 1975 SEX: F ORD SITE: [facility] PT TYPE: REG CLI ORDERING MD: ELVER RUDOLPH MD STUDY DATE REPORT # ORDER # EXT ORDER ID 12/05/16 [id number] PROC CODE: [id number] PROCEDURE DESCRIPTION: XR FINGER 3RD DIGIT MIDDLE [...]
--- OUTSIDE RECORDS SUMMARY | 2024-10-22 20:56 | XMS_ITS | Encounter Summary ---
Author Organization [facility] Address [address] [place] [address]. [place], [place] [address] [place] [address] Care Team Providers Care Customer Supply Coordinator Name Role Phone Unavailable Primary Care Provider Unavailabl e Encounter Details Date Type Department Care Team (Late st Contact Info) Description 09/30/2015 Abstract [facility] Emergency Room [address] [place] [address] Yrn Lees MD [address] [place] [address] Social History Tobacco Use Types Packs/Day Years Used Date Smoking Tobacco: Never Assessed Comments Unknown Sex and Gender Information Value Date Recorded Sex Assigned at Female 12/15/2018 11:48 AM CHEMICAL PRODUCTION TECHNICIAN Legal Sex Female 8:12 PM CDT Gender Identity Female 12/15/2018 11:48 AM CHEMICAL PRODUCTION TECHNICIAN Sexual Orientation Straight 12/15/2018 11 :21 AM CHEMICAL PRODUCTION TECHNICIAN documented as of this encounter Plan of Treatment Not on file documented as of this encounter Visit Diagnoses Diagnosis Sprain of left shoulder joint Sprain and strain of unspecified site of shoulder and upper arm documented in this encounter
--- OUTSIDE RECORDS SUMMARY | 2024-10-22 20:56 | XMS_ITS | Encounter Summary ---
Author Organization [facility] Address [address] [place] [address]. [place], [place] [address] [place] [address] Care Team Providers Care Practical Nurse Clinical Coordinator Name Role Phone Unavailable Primary Care Provider Unavailabl e Encounter Details Date Type Department Care Team (Late st Contact Info) Description 07/09/2017 Abstract [facility] Diagnostic Imaging [address] [place] [address] Mónica Crystal MD Social History Tobacco Use Types Packs/Day Years Used Date Smoking Tobacco: Never Assessed Comments Unknown Sex and Gender Information Value Date Recorded Sex Assigned at Female 12/15/2018 11:48 AM CENTRIFUGAL EXTRACTOR OPERATOR Legal Sex Female 8:12 PM CDT Gender Identity Female 12/15/2018 11:48 AM CENTRIFUGAL EXTRACTOR OPERATOR Sexual Orientation Straight 12/15/2018 11 :21 AM CENTRIFUGAL EXTRACTOR OPERATOR documented as of this encounter Plan of Treatment Not on file documented as of this encounter Visit Diagnoses Diagnosis Low back pain Lumbago documented in this encounter
--- OUTSIDE RECORDS SUMMARY | 2024-10-22 20:56 | XMS_ITS | Encounter Summary ---
Author Organization [facility] Address [address] [place] [address]. [place], [place] [address] [place] [address] Care Team Providers Care Heel Finisher Name Role Phone Jazmyne Hong BLOW OFF WORKER Primary Care Provider Unav ailable Reason for Visit * Reason Comments Fever 100 degree fever, wi th chills, sweating at night, sob on exertion, runny nose on and off, headache, fatigue, nausea, diarrhea Encounter Details Date Type Department Care Team (Late st Contact Info) Description 07/25/2020 11:00 AM CDT Telemedicine [facility] Medical Group Family & Internal Medicine [address] [address] Jazmyne Hong NP Fever (100 [...] Sex Assigned at Female 12/15/2018 11:48 AM WOODEN BOX MAKER Legal Sex Female 8:12 PM CDT Gender Identity Female 12/15/2018 11:48 AM WOODEN BOX MAKER Sexual Orientation Straight 12/15/2018 11 :21 AM WOODEN BOX MAKER Occupation Industry Job Start Date Job End Date [employer] Not on file Not [...] patient aware that the same confidentiality and release of information clerk practices apply. The patient joined the video visit from Home. I completed the virtual visit from Office. The following clinical staff helped with this visit MA: Twila Bonilla. Total Time Spent inMinutes: 10 History of Present Illness: Frances is a 44 year old female who presents today via video visit; she was tested for COVID yesterday at [facility] in [facility] and is needing a note for work. [...] no degree Occupational History ??? Occupation: [employer] Social Needs ??? Financial [...] file Gets together: Not on file Attends scientologist service: Not on file Active member of [...] documented as of this encounter Care Teams Heel Finisher Relationship Specialty Start Date End Date Jazmyne Hong NP PCP - General NURSE PRACTITIONER 12/15/18 08/31/21 documented as of this encounter
--- OUTSIDE RECORDS SUMMARY | 2024-10-22 20:56 | XMS_ITS | Encounter Summary ---
Author Organization [facility] Address [address] [place] [address]. [place], [place] [address] [place] [address] Care Team Providers Care Bottle Inspector Name Role Phone Unavailable Primary Care Provider Unavailabl e Encounter Details Date Type Department Care Team (Late st Contact Info) Description 01/21/2014 Abstract [facility] Emergency Room [address] [place] [address] Lucía Campo, [facility] [address] [address] Social History Tobacco Use Types Packs/Day Years Used Date Smoking Tobacco: Never Assessed Comments Unknown Sex and Gender Information Value Date Recorded Sex Assigned at Female 12/15/2018 11:48 AM ENROLLER Legal Sex Female 8:12 PM CDT Gender Identity Female 12/15/2018 11:48 AM ENROLLER Sexual Orientation Straight 12/15/2018 11 :21 AM ENROLLER documented as of this encounter Plan of Treatment Not on file documented as of this encounter Visit Diagnoses Diagnosis Pain in joint, forearm documented in this encounter
--- OUTSIDE RECORDS SUMMARY | 2024-10-22 20:56 | XMS_ITS | Encounter Summary ---
Author Organization [facility] Address [address] [place] [address]. [place] [address] [place] [address] Care Team Providers Care Managing Consultant Name Role Phone Unavailable Primary Care Provider Unavailabl e Encounter Details Date Type Department Care Team (Late st Contact Info) Description 08/04/2015 Abstract [facility] [address] [place] [address] Aidee Gray, PATIENT SERVICES TECHNICIAN [address] [place] [address] Social History Tobacco Use Types Packs/Day Years Used Date Smoking Tobacco: Never Assessed Comments Unknown Sex and Gender Information Value Date Recorded Sex Assigned at Female 12/15/2018 11:48 AM EVENT REPRESENTATIVE Legal Sex Female 8:12 PM CDT Gender Identity Female 12/15/2018 11:48 AM EVENT REPRESENTATIVE Sexual Orientation Straight 12/15/2018 11 :21 AM EVENT REPRESENTATIVE documented as of this encounter Plan of Treatment Not on file documented as of this encounter Visit Diagnoses Diagnosis Encounter for screening for malignant neoplasm of cervix Screening for malignant neoplasm of the cervix documented in this encounter
--- OUTSIDE RECORDS SUMMARY | 2024-10-22 20:56 | XMS_ITS | Encounter Summary ---
Author Organization [facility] Address [address] [place] [address]. [place], [place] [address] [place] [address] Care Team Providers Care Electric Freight Car Operator Name Role Phone Chantelle Hong GRADES 9 THRU 12 VISITING TEACHER Primary Care Provider Unav ailable Encounter Details Date Type Department Care Team (Late st Contact Info) Description 10/14/2020 Orders Only [facility] Medical Group Family & Internal Medicine [facility] [address] [place] [address] Elvira Martinez MA Social History [...] Assigned at Female 12/15/2018 11:48 AM MANAGER BUSINESS OPERATIONS Legal Sex Female 8:12 PM CDT Gender Identity Female 12/15/2018 11:48 AM MANAGER BUSINESS OPERATIONS Sexual Orientation Straight 12/15/2018 11 :21 AM MANAGER BUSINESS OPERATIONS Occupation Industry Job Start Date Job End [...] as of this encounter Care Teams Electric Freight Car Operator Relationship Specialty Start Date End Date Chantelle Hong NP PCP - General NURSE PRACTITIONER 12/15/18 08/31/21 documented as of this encounter
--- OUTSIDE RECORDS SUMMARY | 2024-10-22 20:56 | XMS_ITS | Encounter Summary ---
Author Organization [facility] Address [address] [place] [address]. [place], [place] [address] [place] [address] Care Team Providers Care Fire Information Officer Name Role Phone Unavailable Primary Care Provider Unavailabl e Encounter Details Date Type Department Care Team (Latest Contact Info) Description 05/16/2015 Abstract [facility] Medical Group Social History Tobacco Use Types Packs/Day Years Used Date Smoking Tobacco: Never Assessed Comments Unknown Sex and Gender Information Value Date Recorded Sex Assigned at Female 12/15/2018 11:48 AM COUNSELOR SUPERVISOR Legal Sex Female 8:12 PM CDT Gender Identity Female 12/15/2018 11:48 AM COUNSELOR SUPERVISOR Sexual Orientation Straight 12/15/2018 11 :21 AM COUNSELOR SUPERVISOR documented as of this encounter Progress Notes * Generic Conversion MD Elle - 05/16/2015 11:52 AM CDT Message Recorded as Task Date: 05/13/2015 02:14 PM, Created By: Zarina Dougherty Task Name: Renew Medication Assigned To: [facility] Nurse Team Regarding Patient: Frances Maguire, [...] anxiety; BIANCA = N; Verified Transmission to [id number]; Last Updated By: Penny Eden; 05/16/2015 11:53:09 AM Signatures Electronically signed by : Marli Duke L.P.N.; May 17 2015 9:53AM COUNSELOR SUPERVISOR (Author) documented in this encounter Plan of Treatment Not on file documented as of this encounter Visit Diagnoses Not on filedocumented in this encounter
--- OUTSIDE RECORDS SUMMARY | 2024-10-22 20:56 | XMS_ITS | Encounter Summary ---
Author Organization [facility] Address [address] [place] [address]. [place] [id number] [place] [address] Care Team Providers Care Manager Android Name Role Phone Unavailable Primary Care Provider Unavailabl e Encounter Details Date Type Department Care Team (Latest Contact Info) Description 07/11/2017 Abstract [facility] Medical Group Social History Tobacco Use Types Packs/Day Years Used Date Smoking Tobacco: Never Assessed Comments Unknown Sex and Gender Information Value Date Recorded Sex Assigned at Female 12/15/2018 11:48 AM CRYPTANALYST Legal Sex Female 8:12 PM CDT Gender Identity Female 12/15/2018 11:48 AM CRYPTANALYST Sexual Orientation Straight 12/15/2018 11 :21 AM CRYPTANALYST documented as of this encounter Plan of Treatment Not on file documented as of this encounter Visit Diagnoses Not on filedocumented in this encounter
--- OUTSIDE RECORDS SUMMARY | 2024-10-22 20:56 | XMS_ITS | Encounter Summary ---
Author Organization [facility] Address [address] [place] [address]. [place], [place] [address] [place] [address] Care Team Providers Care Business Development Specialist Name Role Phone Unavailable Primary Care Provider Unavailabl e Encounter Details Date Type Department Care Team (Latest Contact Info) Description 12/31/2016 Abstract [facility] Medical Group Social History Tobacco Use Types Packs/Day Years Used Date Smoking Tobacco: Never Assessed Comments Unknown Sex and Gender Information Value Date Recorded Sex Assigned at Female 12/15/2018 11:48 AM PRODUCTION SORTER Legal Sex Female 8:12 PM CDT Gender Identity Female 12/15/2018 11:48 AM PRODUCTION SORTER Sexual Orientation Straight 12/15/2018 11 :21 AM PRODUCTION SORTER documented as of this encounter Progress Notes * Elaine Rudolph MD - 12/31/2016 8:03 AM CST Message Please let Jamir know her X ray shows things are starting to heal. Con't with estrada tapping finger for another 3 weeks. Verified Results XR FINGER-3RD DIGIT (MIDLE) LT ( Routine ) [id number] 04:37PM Elaine Rudolph Test Name Result Flag Reference XR FINGER-3RD DIGIT (MIDLE) LT (Report) JAMIR BOWMAN ADMIT/SERVICE DATE: 12/28/16 ACCT: [id number] DISCHARGE DATE: : 1975 SEX: F ORD SITE: [facility] PT TYPE: REG CLI ORDERING MD: ELAINE RUDOLPH MD STUDY DATE REPORT # ORDER # EXT ORDER ID 12/28/16 [id number] PROC CODE: [id number] PROCEDURE DESCRIPTION: XR FINGER 3RD DIGIT MIDDLE [...]
--- OUTSIDE RECORDS SUMMARY | 2024-10-22 20:56 | XMS_ITS | Encounter Summary ---
Author Organization [facility] Address [address] [place] [address]. [place], [place] [address] [place] [address] Care Team Providers Care Body Maker Machine Setter Name Role Phone Akilah Gardner AUDOGRAPH OPERATOR Primary Care Provider Unavailabl e Encounter Details Date Type Department Care Team (Latest Contact Info) Description 09/04/2021 1:20 PM CDT - 09/04/2021 11:59 PM CDT Hospital Encounter [facility] [address] [place] [id number] Akilah Gardner, OTONIEL Discharge Disposition: Home or [...] Assigned at Female 12/15/2018 11:48 AM RN OBSERVATION Legal Sex Female 8:12 PM CDT Gender Identity Female 12/15/2018 11:48 AM RN OBSERVATION Sexual Orientation Straight 12/15/2018 11 :21 AM RN OBSERVATION Occupation Industry Job Start Date Job End [...] FREE (FT4) (09/04/2021 10:08 AM CDT) Pathologist [facility] FREE T4 1.91(H) 0.76 - 1.46 NG/DL 09/04/2021 4:16 PM CDT [facility] 09/04/2021 10:0 8 AM CDT Akilah Gardner NP LABORATORY Final Result [facility] [address] [place] [address], [place] [phone] * (ABNORMAL) CBC W/DIFF AUTOMATED (09/04/2021 10:08 AM CDT) [facility] WBC 4.5 4.4 - 11.0 x10'3/uL 09/04/2021 1:53 PM CDT [facility] RBC 4.35(L) 4.50 - 5.10 x10'6/uL 09/04/2021 1:53 PM CDT [facility] HGB 13.2 12.3 - 15.3 G/DL 09/04/2021 1:53 PM CDT [facility] HCT 39.8 35.9 - 44.6 % 09/04/2021 1:53 PM CDT [facility] MCV 91.5 80.0 - 96.0 FL 09/04/2021 1:53 PM CDT [facility] MCH 30.3 25.3 - 30.9 PG 09/04/2021 1:53 PM CDT [facility] MCHC 33.2 31.0 - 34.1 G/DL 09/04/2021 1:53 PM CDT [facility] RDW 12.0(L) 12.4 - 15.1 % 09/04/2021 1:53 PM CDT [facility] PLT 121(L) 151 - 353 x10'3/uL 09/04/2021 1:53 PM CDT [facility] MPV 12.4(H) 9.6 - 12.0 FL 09/04/2021 1:53 PM CDT [facility] RBC MORPHOLOGY NORMAL 09/04/2021 1:53 PM CDT [facility] PLT MORPH. NORMAL 09/04/2021 1:53 PM CDT [facility] WBC MORPHOLOGY NORMAL 09/04/2021 1:53 PM CDT [facility] LYMPHOCYTES % 40.6 15.8 - 45.0 % 09/04/2021 1:53 PM CDT [facility] NEUTROPHILS % 44.9 42.1 - 71.9 % 09/04/2021 1:53 PM CDT [facility] MONOCYTES % 9.3 5.7 - 12.5 % 09/04/2021 1:53 PM CDT [facility] EOSINOPHILS 4.6 0.0 - 5.6 % 09/04/2021 1:53 PM CDT [facility] BASOPHILS 0.4 0.0 - 1.3 % 09/04/2021 1:53 PM CDT [facility] ABS. NEUTROPHILS 2.03 1.40 - 6.00 x10'3/uL 09/04/2021 1:53 PM CDT [facility] IMMATURE GRANS % 0.2 0.0 - 0.5 % 09/04/2021 1:53 PM CDT [facility] ABS. LYMPHOCYTES 1.84 0.80 - 4.70 x10'3/uL 09/04/2021 1:53 PM CDT [facility] 09/04/2021 10:0 8 AM CDT Akilah Gardner NP LABORATORY Final Result [facility] [address] [place] [address], * (ABNORMAL) COMPREHENSIVE METABOLIC PANEL (09/04/2021 10:08 AM CDT) GLUCOSE 97 70 - 99 MG/DL 09/04/2021 3:57 PM CDT [facility] BUN 12 7 - 18 MG/DL 09/04/2021 3:57 PM CDT [facility] CREATININE S/P/B 0.53(L) 0.55 - 1.02 MG/DL 09/04/2021 3:57 PM CDT [facility] SODIUM S/P/B 143 136 - 145 MMOL/L 09/04/2021 3:57 PM CDT [facility] POTASSIUM S/P/B 4.6 3.5 - 5.1 MMOL/L 09/04/2021 3:57 PM CDT [facility] CHLORIDE S/P/B 106 100 - 108 MMOL/L 09/04/2021 3:57 PM CDT [facility] CO2 30.1 21 - 32 MMOL/L 09/04/2021 3:57 PM CDT [facility] CALCIUM S/P/B 9.5 8.5 - 10.1 MG/DL 09/04/2021 3:57 PM CDT [facility] BILIRUBIN TOTAL S/P/B 0.4 0.2 - 1.2 MG/DL 09/04/2021 3:57 PM CDT [facility] TOTAL PROTEIN S/P/B 6.5 6.4 - 8.2 G/DL 09/04/2021 3:57 PM CDT [facility] ALBUMIN S/P/B 3.9 3.4 - 5.0 G/DL 09/04/2021 3:57 PM CDT [facility] AST 19 15 - 37 U/L 09/04/2021 3:57 PM CDT [facility] ALT 24 14 - 55 U/L 09/04/2021 3:57 PM T [facility] ALKALINE PHOSPHATASE S/P/B 101 50 - 136 U/L 09/04/2021 3:57 PM T [facility] ANION GAP 6.9 5 - 15 MMOL/L 09/04/2021 3:57 PM T [facility] BUN CREATININE RATIO 22.6 6 - 26 09/04/2021 3:57 PM T [facility] A/G RATIO 1.5 1.0 - 2.0 RATIO 09/04/2021 3:57 PM T [facility] EGFR NON-AFR. AMER. >90 >90 ML/MIN/1.7 3 M2 09/04/2021 3:57 PM T [facility] EGFR AFR. AMER. >90 >90 ML/MIN/1.7 3 M2 09/04/2021 3:57 PM T [facility] Comment: NOTE: eGFR is not calculated for patients <18 years of age. This is an estimated GFR (CKD EPI) and should not be used for calculating drug doses. 09/04/2021 10:0 8 AM CDT us Akilah Gardner NP LABORATORY Final Result [facility] [address] [place] [address], [place] [phone] * (ABNORMAL) LIPID PANEL (09/04/2021 10:08 AM CDT) [facility] Signature CHOLESTEROL 181 <200.0 MG/DL 09/04/2021 3:57 PM CDT [facility] TRIGLYCERIDES 123 <150 MG/DL 09/04/2021 3:57 PM CDT [facility] HDL 46 >40.0 MG/DL 09/04/2021 3:57 PM CDT [facility] LDL (CALCULATED) 110(H) <100 MG/DL 09/04/2021 3:57 PM CDT [facility] NON HDL CHOLESTEROL 135(H) <130 MG/DL 09/04/2021 3:57 PM CDT [facility] CHOL/HDL RATIO 3.9 0.0 - 4.5 09/04/2021 3:57 PM T [facility] VLDL CALCULATION 25 5 - 55 MG/DL 09/04/2021 3:57 PM T [facility] LIPID INTERPRETATION 09/04/2021 3:57 PM T [facility] Comment: NIH CONCENSUS REPORT [...] NP LABORATORY Final Result Performing Organization Address [facility] de Phone Number [facility] [address] [place] [address], [place] [phone] * (ABNORMAL) TSH W/REFLEX (09/04/2021 10:08 AM CDT) TSH <0.007(L) 0.358 - 3.74 uIU/ML 09/04/2021 3:58 PM CDT [facility] Comment: HIGH DOSES OF BIOTIN MAY INTERFERE WITH THIS TEST RESULT. CORRELATION TO CLINICAL HISTORY AND PRESENTATION RECOMMENDED. 09/04/2021 10:0 8 AM CDT us Akilah Gardner NP LABORATORY Final Result Performing Organization Address [facility] de Phone Number [facility] [address] [place] [address], [place] [phone] * (ABNORMAL) VITAMIN D, 25 OH (09/04/2021 10:08 AM CDT) VITAMIN D 25 HYDROXY S/P/B 29(L) 30 - 100 NG/ML 09/04/2021 2:25 PM CDT [facility] Comment: ? INTERPRETATION ? DEFICIENT ??<20 ? INSUFFICIENT 20-29 ?SUFFICIENT 30-100 09/04/2021 10:0 8 AM CDT us Akilah Gardner NP LABORATORY Final Result Performing Organization Address [facility] de Phone Number [facility] [address] [place] [address], [place] [phone] * ALBUMIN URINE RANDOM (09/04/2021 10:08 AM CDT) Pathologist [facility] CREATININE (U) 131.4 28 - 217 MG/DL 09/04/2021 2:18 PM CDT [facility] MICROALBUMIN (U) 0.5 <2.0 mg/dL 09/04/20 2:18 PM CDT [facility] ALBUMIN/CREAT RATIO 3.8 <30.0 MG/G 09/04/2021 2:18 PM CDT [facility] URINE SPECIMEN / Unknown 09/04/2021 10:08 AM CDT us Akilah Gardner NP URINE ORDERABLES Final Result Performing Organization Address [facility] Co de Phone Number [facility] [address] [place] [address], [place] [phone] documented in this encounter Visit Diagnoses Diagnosis Annual physical exam Routine general medical examination at a [facility] facility Anxiety and depression Dysthymic disorder documented in this encounter Additional Health Concerns Assessment Noted Time PHQ-9 Depression Total Score: 14 021 8:58 AM CDT documented as of this encounter Care Teams Body Maker Machine Setter Relationship Specialty Start Date End Date Akilah Gardner, AUDOGRAPH OPERATOR PCP - General NURSE PRACTITIONER 09/01/21 08/02/22 documented as of this encounter
--- OUTSIDE RECORDS SUMMARY | 2024-10-22 20:56 | XMS_ITS | Encounter Summary ---
Author Organization [facility] Address [address] [place] [address]. [address] [address] Care Team Providers Care Auto Bumper Mechanic Name Role Phone Jazmyne Hong ADJUNCT SPANISH INSTRUCTOR Primary Care Provider Unav ailable Reason for Visit * Reason Comments Dental Problem pt c/o tooth infecti on Encounter Details Date Type Department Care Team (Late st Contact Info) Description 06/23/2020 3:20 PM CDT Office Visit [facility] Medical Group Family & Internal Medicine [address] [address] Jazmyne Hong NP Dental Problem [...] Sex Assigned at Female 12/15/2018 11:48 AM ONION TIER Legal Sex Female 8:12 PM CDT Gender Identity Female 12/15/2018 11:48 AM ONION TIER Sexual Orientation Straight 12/15/2018 11 :21 AM ONION TIER Occupation Industry Job Start Date Job End Date [facility] Not on file Not on file Not [...] college, no degree Occupational History ??? Occupation: [employer] Needs ??? Financial resource strain: Not on [...] file Gets together: Not on file Attends mandaeism service: Not on file Active member of [...] documented as of this encounter Care Teams Auto Bumper Mechanic Relationship Specialty Start Date End Date Jazmyne Hong NP PCP - General NURSE PRACTITIONER 12/15/18 08/31/21 documented as of this encounter
--- OUTSIDE RECORDS SUMMARY | 2024-10-22 20:56 | XMS_ITS | Encounter Summary ---
Author Organization [facility] Address [address] [place] [address]. [place], [place] [address] [place] [address] Care Team Providers Care Cartoonist Special Effects Name Role Phone Unavailable Primary Care Provider Unavailabl e Encounter Details Date Type Department Care Team (Latest Contact Info) Description 01/01/2017 Abstract [facility] Social History Tobacco Use Types Packs/Day Years Used Date Smoking Tobacco: Never Assessed Comments Unknown Sex and Gender Information Value Date Recorded Sex Assigned at Female 12/15/2018 11:48 AM CHLORINE CELL TENDER Legal Sex Female 8:12 PM CDT Gender Identity Female 12/15/2018 11:48 AM CHLORINE CELL TENDER Sexual Orientation Straight 12/15/2018 11 :21 AM CHLORINE CELL TENDER documented as of this encounter Progress Notes [...] Goldie Lemus, ; Jan 01 2017 11:40AM CHLORINE CELL TENDER (Author) documented in this encounter Plan of Treatment Not on file documented as of this encounter Visit Diagnoses Not on filedocumented in this encounter
--- OUTSIDE RECORDS SUMMARY | 2024-10-22 20:56 | XMS_ITS | Encounter Summary ---
Author Organization [facility] Address [address] [place] [address]. [place] [address] [place] [address] Care Team Providers Care Calciner Operator Name Role Phone Unavailable Primary Care Provider Unavailabl e Encounter Details Date Type Department Care Team (Late st Contact Info) Description 07/02/2017 Abstract [facility] [address] [place] [address] Aidee Gray, SCIENTIFIC DATABASE CURATOR [address] [place] [address] Social History Tobacco Use Types Packs/Day Years Used Date Smoking Tobacco: Never Assessed Comments Unknown Sex and Gender Information Value Date Recorded Sex Assigned at Female 12/15/2018 11:48 AM RECHARGER Legal Sex Female 8:12 PM CDT Gender Identity Female 12/15/2018 11:48 AM RECHARGER Sexual Orientation Straight 12/15/2018 11 :21 AM RECHARGER documented as of this encounter Plan of [...] VE NON-REACTI VE 07/02/2017 6:37 PM CDT [facility] Comment: ??TESTING PERFORMED [facility] [place] [address] SERUM OR PLASMA SPECIMEN / Unknown 07/02/2017 12:44 PM CDT 07/02/2017 12:45 PM CDT us Generic Conversion Md [facility] Final R neva [facility] [address] [place] [address], [place] [phone] * HIV - RAPID (07/02/2017 12:44 PM CDT) HIV RAPID NON-REACTIV E NON-REACTI VE 07/02/2017 1:31 PM CDT [facility] 07/02/2017 12:4 4 PM CDT 07/02/2017 12:45 PM CDT us Generic Conversion Md [facility] Final R eskwasi Performing Organization Address City/[facility]/ZIP Co de Phone Number [facility] [address] [place] [address], [place] [phone] * SYPHILIS IGG AB (07/02/2017 12:44 PM CDT) SYPHILIS IGG AB NON-REACTI VE NON-REACTI VE 07/05/2017 3:16 PM CDT [facility] Comment: ??TESTING PERFORMED [facility] [place] [address] SERUM SPECIMEN / Unknown 07/02/2017 12:44 PM CDT 07/02/2017 12:45 PM CDT us Generic Conversion Md [facility] Final R neva [facility] [address] [place] [address], documented in this encounter Visit Diagnoses Diagnosis Encounter for screening for infections with predominantly sexual mode of transmission Screening examination for venereal disease documented in this encounter
--- OUTSIDE RECORDS SUMMARY | 2024-10-22 20:56 | XMS_ITS | Encounter Summary ---
Author Organization [facility] Address [address] [place] [address]. [place], [place] [address] [place] [address] Care Team Providers Care Breast Trimmer Name Role Phone Unavailable Primary Care Provider Unavailabl e Encounter Details Date Type Department Care Team (Late st Contact Info) Description 02/04/[address] [facility] Family & Internal Medicine [facility] [address] [place] [address] [place] [address] [place] [address] Social History Tobacco Use Types Packs/Day Years Used Date Smoking Tobacco: Never Assessed Comments Unknown Sex and Gender Information Value Date Recorded Sex Assigned at Female 12/15/2018 11:48 AM RAILROAD EMERGENCY SERVICES MANAGER Legal Sex Female 8:12 PM CDT Gender Identity Female 12/15/2018 11:48 AM RAILROAD EMERGENCY SERVICES MANAGER Sexual Orientation Straight 12/15/2018 11 :21 AM RAILROAD EMERGENCY SERVICES MANAGER documented as of this encounter Last [...] Body Mass Index 25.5 10/20/2012 10:30 AM RAILROAD EMERGENCY SERVICES MANAGER documented in this encounter Progress Notes [...] Current Meds 1. Acidophilus Oral Capsule; Therapy: [id number] to Recorded Dispense: 0 Days ; #: [...] anxiety; BIANCA = N; Verified Transmission to [id number]; Last Updated By: Trunkbow; 02/04/2015 9:50:13 AM 3. Follow-up visit in 6 weeks Outpatient Follow-up Status: Hold For - Scheduling Requested for: [id number] Ordered; For: Adjustment disorder with anxiety; Ordered By: Noé Hansen Performed: Due: [id number] call if any intolerable side effects to medication continue counseling f/u 6 weeks Discussion/Summary discussed benefits of daily medication for anxiety. also discussed longer acting benzodiazepine. also instructed not to take tramadol very often while on SSRI Signatures Electronically signed by : Noé Hansen NP; Feb 04 2015 11:01AM RAILROAD EMERGENCY SERVICES MANAGER (Author) documented in this encounter Plan of Treatment Not on file documented as of this encounter Visit Diagnoses Not on filedocumented in this encounter
--- OUTSIDE RECORDS SUMMARY | 2024-10-22 20:56 | XMS_ITS | Encounter Summary ---
Author Organization [facility] Address [address] [place] [address]. [place] [address] [place] [address] Care Team Providers Care Rn Ent Name Role Phone Unavailable Primary Care Provider Unavailabl e Encounter Details Date Type Department Care Team (Late st Contact Info) Description 05/01/2017 Abstract [facility] Emergency Room [address] [place] [address] Social History Tobacco Use Types Packs/Day Years Used Date Smoking Tobacco: Never Assessed Comments Unknown Sex and Gender Information Value Date Recorded Sex Assigned at Female 12/15/2018 11:48 AM CABLE TOOL DRILLER Legal Sex Female 8:12 PM CDT Gender Identity Female 12/15/2018 11:48 AM CABLE TOOL DRILLER Sexual Orientation Straight 12/15/2018 11 :21 AM CABLE TOOL DRILLER documented as of this encounter Plan of [...] AND RH (05/01/2017 2:30 PM CDT) Pathologist [facility] [place] ABO/RH AB POSITIVE 05/01/2017 3:03 PM CDT [facility] 05/01/2017 2:30 PM CDT 05/01/2017 2:34 PM CDT us Generic Conversion Md ABRAHAM BLOOD BANK TEST ORDERAB LES Final Result Performing Organization Address [facility] de Phone Number [facility] [address] [place] [address], [place] [phone] * (ABNORMAL) HCG QUANT (SERUM)-CHORIONIC GONADOTROPIN (05/01/2017 2:30 PM CDT) [facility] HCG QUANTITATIVE 9,685(H) <5.0 MIU/ML 05/01/2017 3:03 PM CDT [facility] Comment: NORMAL RANGE FOR NON- [...] LABORATORY Final R esult Performing Organization Address [facility]/ZIP Co de Phone Number [facility] [address] [place] [address], [place] [phone] * (ABNORMAL) COMPREHENSIVE METABOLIC PANEL (05/01/2017 2:30 PM CDT) [facility] GLUCOSE 92 70 - 99 MG/DL 05/01/2017 2:59 PM CDT [facility] BUN 6(L) 7.0 - 18.7 MG/DL 05/01/2017 2:59 PM CDT [facility] CREATININE S/P/B 0.74 0.60 - 1.10 MG/DL 05/01/2017 2:59 PM CDT [facility] SODIUM S/P/B 138 136 - 145 MMOL/L 05/01/2017 2:59 PM CDT [facility] POTASSIUM S/P/B 3.4(L) 3.5 - 5.1 MMOL/L 05/01/2017 2:59 PM CDT [facility] CHLORIDE S/P/B 105 98 - 107 MMOL/L 05/01/2017 2:59 PM CDT [facility] CO2 20.0(L) 22 - 29 MMOL/L 05/01/2017 2:59 PM CDT [facility] CALCIUM S/P/B 10.0 8.4 - 10.2 MG/DL 05/01/2017 2:59 PM CDT [facility] BILIRUBIN TOTAL S/P/B 0.9 0.2 - 1.2 MG/DL 05/01/2017 2:59 PM CDT [facility] TOTAL PROTEIN S/P/B 7.7 6.4 - 8.3 G/DL 05/01/2017 2:59 PM T [facility] ALBUMIN S/P/B 4.7 3.5 - 5.0 G/DL 05/01/2017 2:59 PM CDT [facility] AST 15 5 - 34 U/L 05/01/2017 2:59 PM CDT [facility] ALT 10 0 - 31 U/L 05/01/2017 2:59 PM CDT [facility] ALKALINE PHOSPHATASE S/P/B 59 30 - 115 U/L 05/01/2017 2:59 PM CDT [facility] ANION GAP 13.0 0 - 24 MMOL/L 05/01/2017 2:59 PM CDT [facility] BUN CREATININE RATIO 8.1 6 - 26 05/01/2017 2:59 PM CDT [facility] OSMOLALITY (CALC) 273 261 - 280 MOSM/KG 05/01/2017 2:59 PM CDT [facility] A/G RATIO 1.6 1.1 - 1.9 RATIO 05/01/2017 2:59 PM CDT [facility] EGFR NON-AFR. AMER. >60 >60 ML/MIN/1.7 3 M2 05/01/2017 2:59 PM CDT [facility] EGFR AFR. AMER. >60 >60 ML/MIN/1.7 3 M2 05/01/2017 2:59 PM T [facility] 05/01/2017 2:30 PM CDT 05/01/2017 2:34 PM CDT us Generic Conversion Md ABRAHAM LABORATORY Final R esult [facility] [address] [place] [address], [place] [phone] * (ABNORMAL) CBC W/DIFF AUTOMATED (05/01/2017 2:30 PM CDT) WBC 8.7 4.8 - 10.8 x10'3/uL 05/01/2017 2:39 PM CDT [facility] RBC 4.03(L) 4.10 - 5.10 x10'6/uL 05/01/2017 2:39 PM CDT [facility] HGB 13.3 12.0 - 16.0 G/DL 05/01/2017 2:39 PM T [facility] HCT 38.7 36 - 46 % 05/01/2017 2:39 PM T [facility] MCV 96.0 80 - 100 FL 05/01/2017 2:39 PM CDT [facility] MCH 33.0 26.0 - 34.0 PG 05/01/2017 2:39 PM CDT [facility] MCHC 34.4 31.0 - 37.0 G/DL 05/01/2017 2:39 PM T [facility] RDW 12.5 11.5 - 14.5 % 05/01/2017 2:39 PM T [facility] PLT 263 150 - 350 x10'3/uL 05/01/2017 2:39 PM T [facility] CBC COMMENT AUTOMATED RBC MORPHOLOGY AND PLATELET EVALUATION NORMAL 05/01/2017 2:39 PM T [facility] NEUTROPHILS % 59.3 50 - 70 % 05/01/2017 2:39 PM T [facility] LYMPHOCYTES % 30.0 18 - 42 % 05/01/2017 2:39 PM T [facility] MONOCYTES % 7.6 2.0 - 11.0 % 05/01/2017 2:39 PM T [facility] EOSINOPHILS 2.5 1.0 - 3.0 % 05/01/2017 2:39 PM T [facility] BASOPHILS 0.6 0.0 - 1.0 % 05/01/2017 2:39 PM T [facility] ABS. NEUTROPHILS TOTAL 5.17 1.69 - 7.81 x10'3/uL 05/01/2017 2:39 PM CDT [facility] 05/01/2017 2:30 PM CDT 05/01/2017 2:34 PM CDT us Generic Conversion Md ABRAHAM LABORATORY Final R esult [facility] [address] [place] [address], [place] [phone] * URINALYSIS WI REFLEX TO CULTURE (05/01/2017 2:20 PM CDT) COLOR (U) YELLOW 05/01/2017 2:46 PM CDT [facility] TRANSPARENCY CLEAR 05/01/2017 2:46 PM CDT [facility] SPECIFIC GRAVITY (U) 1.015 1.002 - 1.030 05/01/2017 2:46 PM CDT [facility] U PH 6.0 4.5 - 8 05/01/2017 2:46 PM CDT [facility] LEUKOCYTES (U) NEGATIVE NEGATIVE 05/01/2017 2:46 PM CDT [facility] NITRITES NEGATIVE NEGATIVE 05/01/2017 2:46 PM CDT [facility] PROTEIN (U) NEGATIVE NEGATIVE 05/01/2017 2:46 PM CDT [facility] URINE GLUCOSE NEGATIVE NEGATIVE 05/01/2017 2:46 PM CDT [facility] KETONES MG/DL (U) NEGATIVE NEGATIVE 05/01/2017 2:46 PM CDT [facility] UROBILINOGEN NORMAL NORMAL EU/DL 05/01/2017 2:46 PM CDT [facility] BILIRUBIN (U) NEGATIVE NEGATIVE 05/01/2017 2:46 PM CDT [facility] BLOOD (U) NEGATIVE NEGATIVE 05/01/2017 2:46 PM CDT [facility] WBC/HPF 0-5 /HPF 05/01/2017 2:46 PM CDT [facility] CULTURE & SENSITIVITY INDICATED? CULTURE IS NOT INDICATED 05/01/2017 2:46 PM CDT [facility] RBC/HPF OCCASIONAL /HPF 05/01/2017 2:46 PM CDT [facility] EPI/HPF 0-5 /HPF 05/01/2017 2:46 PM CDT [facility] BACTERIA (U) TRACE /HPF 05/01/2017 2:46 PM CDT [facility] MUCUS 1+ 05/01/2017 2:46 PM T [facility] 05/01/2017 2:20 PM CDT 05/01/2017 2:34 PM CDT us Generic Conversion Md ABRAHAM URINE ORDERABLES Final Result [facility] [address] [place] [address], [place] [phone] documented in this encounter Visit Diagnoses Diagnosis Other specified diseases and conditions complicating , childbirth and the puerperium documented in this encounter
--- OUTSIDE RECORDS SUMMARY | 2024-10-22 20:56 | XMS_ITS | Encounter Summary ---
Author Organization [facility] Address [address] [place] [address]. [place], [place] [address] [place] [address] Care Team Providers Care Associate Curator Name Role Phone Unavailable Primary Care Provider Unavailabl e Encounter Details Date Type Department Care Team (Late st Contact Info) Description 06/05/2013 Abstract [facility] [address] [place] [address] Aidee Gray, WEIGHT COUNT OPERATOR [address] [place] [address] Social History Tobacco Use Types Packs/Day Years Used Date Smoking Tobacco: Never Assessed Comments Unknown Sex and Gender Information Value Date Recorded Sex Assigned at Female 12/15/2018 11:48 AM MARKETING PRODUCTION COORDINATOR Legal Sex Female 8:12 PM CDT Gender Identity Female 12/15/2018 11:48 AM MARKETING PRODUCTION COORDINATOR Sexual Orientation Straight 12/15/2018 11 :21 AM MARKETING PRODUCTION COORDINATOR documented as of this encounter Plan of Treatment Not on file documented as of this encounter Visit Diagnoses Diagnosis Screening for lipoid disorders documented in this encounter
--- OUTSIDE RECORDS SUMMARY | 2024-10-22 20:56 | XMS_ITS | Encounter Summary ---
Author Organization [facility] Address [address] [place] [address]. [place], [place] [address] [place] [address] Care Team Providers Care Home Care Specialist Name Role Phone Jazmyne Hong NURSING FACULTY Primary Care Provider Unav ailable Reason for Visit * Reason Comments Follow Up 6 month F/U Encounter Details Date Type Department Care Team (Late st Contact Info) Description 07/02/2019 3:00 PM CDT Office Visit [facility] Family & Internal Medicine [address] [address] Jazmyne Hong NP Follow Up [...] Sex Assigned at Female 12/15/2018 11:48 AM TIMBER HEWER Legal Sex Female 8:12 PM CDT Gender Identity Female 12/15/2018 11:48 AM TIMBER HEWER Sexual Orientation Straight 12/15/2018 11 :21 AM TIMBER HEWER Occupation Industry Job Start Date Job End [...] college, no degree Occupational History ??? Occupation: [employer] Social Needs ??? Financial resource strain: Not [...] file Gets together: Not on file Attends zoroastrianism service: Not on file Active member of [...] disorder documented in this encounter Care Teams Home Care Specialist Relationship Specialty Start Date End Date Jazmyne Hong NP PCP - General NURSE PRACTITIONER 12/15/18 08/31/21 documented as of this encounter
--- OUTSIDE RECORDS SUMMARY | 2024-10-22 20:56 | XMS_ITS | Encounter Summary ---
Author Organization [facility] Address [address] [place] [address]. [place], [place] [address] [place] [address] Care Team Providers Care Radio Interference Investigator Name Role Phone Akilah Gardner NP Primary [...] Sex Assigned at Female 12/15/2018 11:48 AM SLASHER SAWYER Legal Sex Female 8:12 PM CDT Gender Identity Female 12/15/2018 11:48 AM SLASHER SAWYER Sexual Orientation Straight 12/15/2018 11 :21 AM SLASHER SAWYER Occupation Industry Job Start Date Job End [...] documented as of this encounter Care Teams Radio Interference Investigator Relationship Specialty Start Date End Date Akilah Gardner, WINTER INTERN PCP - General NURSE PRACTITIONER 09/01/21 08/02/22 documented as of this encounter
--- OUTSIDE RECORDS SUMMARY | 2024-10-22 20:56 | XMS_ITS | Encounter Summary ---
Author Organization [facility] Address [address] [place] [address]. [place] [phone] [place] [address] Care Team Providers Care Retort Fireman Name Role Phone Unavailable Primary Care Provider Unavailabl e Encounter Details Date Type Department Care Team (Latest Contact Info) Description 09/09/2018 Scan [facility] , Generic Conversion, Social History Tobacco Use Types Packs/Day Years Used Date Smoking Tobacco: Never Assessed Comments Unknown Sex and Gender Information Value Date Recorded Sex Assigned at Female 12/15/2018 11:48 AM STATEMENT PROCESSOR Legal Sex Female 8:12 PM CDT Gender Identity Female 12/15/2018 11:48 AM STATEMENT PROCESSOR Sexual Orientation Straight 12/15/2018 11 :21 AM STATEMENT PROCESSOR documented as of this encounter Plan of Treatment Not on file documented as of this encounter Visit Diagnoses Not on filedocumented in this encounter
--- OUTSIDE RECORDS SUMMARY | 2024-10-22 20:56 | XMS_ITS | Encounter Summary ---
Author Organization [facility] Address [address] [place] [address]. [place], [place] [address] [place] [address] Care Team Providers Care Class A Lineman Name Role Phone Chantelle Hong BIAS MACHINE OPERATOR Primary Care Provider Unav ailable Encounter [...] Sex Assigned at Female 12/15/2018 11:48 AM PHOTO CARTOGRAPHER Legal Sex Female 8:12 PM CDT Gender Identity Female 12/15/2018 11:48 AM PHOTO CARTOGRAPHER Sexual Orientation Straight 12/15/2018 11 :21 AM PHOTO CARTOGRAPHER Occupation Industry Job Start Date Job End Date [employer] Not on file Not on [...] documented as of this encounter Care Teams Class A Lineman Relationship Specialty Start Date End Date Chantelle Hong NP PCP - General NURSE PRACTITIONER 12/15/18 08/31/21 documented as of this encounter
--- OUTSIDE RECORDS SUMMARY | 2024-10-22 20:56 | XMS_ITS | Encounter Summary ---
Author Organization [facility] Address [address] [place] [address]. [place], [place] [address] [place] [address] Care Team Providers Care Microbiology Technician Name Role Phone Chantelle Hong NP Primary Care Provider Unav ailable Reason for Visit * Reason Onset Date Comments Medication 12/04/2019 Encounter Details Date Type Department Care Team (Late st Contact Info) Description 12/04/2019 Telephone [facility] Family & Internal Medicine [address] [phone] Chantelle Hong, PULLER MACHINE Medication Social History Tobacco Use Types Packs/Day [...] Sex Assigned at Female 12/15/2018 11:48 AM DIAMOND CUTTER Legal Sex Female 8:12 PM CDT Gender Identity Female 12/15/2018 11:48 AM DIAMOND CUTTER Sexual Orientation Straight 12/15/2018 11 :21 AM DIAMOND CUTTER Occupation Industry Job Start Date Job End Date [employer] Not on file Not on file Not on file documented as of this encounter Progress Notes * Marina Olsen LPN - 12/04/2019 3:30 PM CST Left detailed message for patient on vm. OND CUTTER * Chantelle Hong NP - 12/04/2019 2:33 PM CST I sent into [facility]. I am still waiting on some of her labs to come back; recommend she try zyrtec or claritin two times daily if she is not already. Thanks. delmar OND CUTTER * Alicia Murillo RN - 12/04/2019 10:05 AM CST Please advise. OND CUTTER * Aidee Wu LPN - 12/04/2019 8:55 AM CST Pt called would like a refill of tobramycin dexamethasone ophthalmic for right eye she had order inoct from [facility] and was in office last week see [facility] increase pain in eye reddness ear popping eye [facility] [place] [phone] OND CUTTER documented in this encounter Plan of Treatment Not on file documented as of this encounter Visit Diagnoses Not on filedocumented in this encounter Care Teams Microbiology Technician Relationship Specialty Start Date End Date Chantelle Hong NP PCP - General NURSE PRACTITIONER 12/15/18 08/31/21 documented as of this encounter
--- OUTSIDE RECORDS SUMMARY | 2024-10-22 20:56 | XMS_ITS | Encounter Summary ---
Author Organization [facility] Address [address] [place] [address]. [place], [place] [address] [place] [address] Care Team Providers Care Leading Firefighter Name Role Phone Chantelle Hong SAFETY ENGINEER PRESSURE VESSELS Primary Care Provider Unav ailable Reason for Visit * Reason Onset Date Comments Work Excuse 07/28/2020 Encounter Details Date Type Department Care Team (Late st Contact Info) Description 07/28/2020 Telephone [facility] Family & Internal Medicine [address] [phone] Chantelle Hong NP Work Excuse [...] Sex Assigned at Female 12/15/2018 11:48 AM HEAD CHEF Legal Sex Female 8:12 PM CDT Gender Identity Female 12/15/2018 11:48 AM HEAD CHEF Sexual Orientation Straight 12/15/2018 11 :21 AM HEAD CHEF Occupation Industry Job Start Date Job End [...] x 24 Hour liyah IGA mirtha fax [phone] V/U cb [phone] documented in this encounter Plan of Treatment Not on file documented as of this encounter Visit Diagnoses Not on filedocumented in this encounter Additional Health Concerns Assessment Noted Time PHQ-9 Depression Total Score: 5 06/23/20 20 3:28 PM CDT documented as of this encounter Care Teams Leading Firefighter Relationship Specialty Start Date End Date Chantelle Hong NP PCP - General NURSE PRACTITIONER 12/15/18 08/31/21 documented as of this encounter
--- OUTSIDE RECORDS SUMMARY | 2024-10-22 20:56 | XMS_ITS | Encounter Summary ---
Author Organization [facility] Address [address] [place] [address]. [place] [id number] [place] [address] Care Team Providers Care Scrubber System Attendant Name Role Phone Unavailable Primary Care Provider Unavailabl e Encounter Details Date Type Department Care Team (Latest Contact Info) Description 09/30/2015 Abstract [facility] Social History Tobacco Use Types Packs/Day Years Used Date Smoking Tobacco: Never Assessed Comments Unknown Sex and Gender Information Value Date Recorded Sex Assigned at Female 12/15/2018 11:48 AM SUPERVISOR ORDNANCE TRUCK INSTALLATION Legal Sex Female 8:12 PM CDT Gender Identity Female 12/15/2018 11:48 AM SUPERVISOR ORDNANCE TRUCK INSTALLATION Sexual Orientation Straight 12/15/2018 11 :21 AM SUPERVISOR ORDNANCE TRUCK INSTALLATION documented as of this encounter Plan of Treatment Not on file documented as of this encounter Visit Diagnoses Not on filedocumented in this encounter
--- OUTSIDE RECORDS SUMMARY | 2024-10-22 20:56 | XMS_ITS | Encounter Summary ---
Author Organization [facility] Address [address] [place] [address]. [place] [phone] [place] [address] Care Team Providers Care Assistant Distribution Manager Name Role Phone Unavailable Primary Care Provider Unavailabl e Encounter Details Date Type Department Care Team (Latest Contact Info) Description 10/02/2017 Abstract [facility] Group Social History Tobacco Use Types Packs/Day Years Used Date Smoking Tobacco: Never Assessed Comments Unknown Sex and Gender Information Value Date Recorded Sex Assigned at Female 12/15/2018 11:48 AM PERFORATOR TYPIST Legal Sex Female 8:12 PM CDT Gender Identity Female 12/15/2018 11:48 AM PERFORATOR TYPIST Sexual Orientation Straight 12/15/2018 11 :21 AM PERFORATOR TYPIST documented as of this encounter Plan of Treatment Not on file documented as of this encounter Visit Diagnoses Not on filedocumented in this encounter
--- OUTSIDE RECORDS SUMMARY | 2024-10-22 20:56 | XMS_ITS | Encounter Summary ---
Author Organization [facility] Address [address] [place] [address]. [place] [id number] Care Team Providers Care Product Manager E Commerce Name Role Phone Jazmyne Hong PHYSICIAN OPHTHALMOLOGIST Primary Care Provider Unav ailable Reason for Visit * Reason Comments Fever SOB, diarrhea, nause a, tired, body aches, headache started yesterday, 2nd cycle in 2.5 weeks Encounter Details Date Type Department Care Team (Late st Contact Info) Description 11/27/2019 9:20 AM RESEARCH ENGINEER Office Visit [facility] Family & Internal Medicine [address] [address] Jazmyne Hong NP Fever (SOB, [...] Assigned at Female 12/15/2018 11:48 AM RESEARCH ENGINEER Legal Sex Female 8:12 PM CDT Gender Identity Female 12/15/2018 11:48 AM RESEARCH ENGINEER Sexual Orientation Straight 12/15/2018 11 :21 AM RESEARCH ENGINEER 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 Not on file Not on file documented as of this encounter Last Filed Vital Signs Vital Sign Reading Time Taken Comments Blood Pressure 102/68 11/27/2019 9:24 AM RESEARCH ENGINEER Pulse 78 11/27/2019 9:24 AM RESEARCH ENGINEER Temperature 37.3 ??C (99.1 ??F) 11/27/2019 9:24 AM CS T Respiratory Rate 16 11/27/2019 9:24 AM RESEARCH ENGINEER Oxygen Saturation 96% 11/27/2019 9:24 AM RESEARCH ENGINEER Inhaled Oxygen Concentration - - Weight 75.4 kg (166 lb 3.2 oz) 11/27/2019 9:24 A M RESEARCH ENGINEER Height 167.6 cm (5' 6 ) 11/27/2019 9:24 AM RESEARCH ENGINEER Body Mass Index 26.83 11/27/2019 9:24 AM RESEARCH ENGINEER documented in this encounter Patient Instructions * Patient Instructions* Jazmyne Hong, PHYSICIAN OPHTHALMOLOGIST - 11/27/2019 9:20 AM RESEARCH ENGINEER Images from the original note were not [...] Where can I learn more? NHS Choices http://www.nhs.uk/livewell/iupjjqsgo-qzh-docjxkm/pages/mdfybhbbx-ahk-ceklezh.asp x [place] Centers for Disease Control and [...] right for you. Copyright Copyright ?? 2019 [employer] Information, Inc. and its affiliates [...] to be as effective as the leading ujac-jqe-rqqdtqp (OTC) drug for calming coughs. Use 1/2 [...] trouble breathing. Where can I learn more? [employer] https://familydoctor.org/vmndi-pliyfaov-zghxgkhqzslcz-nmgi-kqx-rzteyct/ NHS Choices https://www.nhs.uk/conditions/cough/ Last Reviewed Date 2018-01-09 [...] right for you. Copyright Copyright ?? 2019 [employer]. and its affiliates and/or licensors. All rights reserved. ARCH ENGINEER ARCH ENGINEER documented in this encounter Progress Notes * [...] college, no degree Occupational History ??? Occupation: [employer] Social Needs ??? Financial [...] file Gets together: Not on file Attends bahai service: Not on file Active member of [...] Check sed rate. 3. Enlarged lymph nodes. Edwards spot in office today. 4. URI. Doxycycline 100 mg two times daily x 10 days. JAZMYNE HONG NP 11/29/2019 10:43 PM ARCH ENGINEER documented in this encounter Plan of Treatment Not on file documented as of this encounter Procedures Procedure Name Priority Date/Time Associated Diagnosis Comments HETEROPHILE ANTIBODIES,SCREEN Routine 11/27/2019 10:42 AM RESEARCH ENGINEER Fatigue, unspecified type Enlarged lymph nodes VENIPUNC ARM DRAW Routine 11/27/2019 10: 38 AM RESEARCH ENGINEER Fatigue, unspecified type Arthralgia, unspecified joint Enlarged lymph nodes documented in this encounter Results * HETEROPHILE ANTIBODIES,SCREEN (11/27/2019 10:42 AM RESEARCH ENGINEER) Pathologist [facility] HETEROPHILE ANTIBODIES NEGATIVE NEGATIVE [address] ([address]), [place] Internal Control: VALID VALID [address] ([address]), [place] 11/27/2019 10:4 2 AM RESEARCH ENGINEER us Jazmyne Hong PHYSICIAN OPHTHALMOLOGIST LABORATORY Final Resul t [address] ([address] [address] [place] [address], [place] [phone] * (ABNORMAL) SED RATE, ERYTHROCYTE (ESR) (11/27/2019 10:20 AM RESEARCH ENGINEER) ESR 21(H) 0 - 20 MM/HR 11/27/2019 1:31 PM RESEARCH ENGINEER [facility] 11/27/2019 10:2 0 AM RESEARCH ENGINEER Jazmyne Hong NP LABORATORY Final Resul t Performing Organization Address [facility]/ZIP Co de Phone Number [facility] [address] [place] [address], [place] [phone] * RHEUMATOID FACTOR, QUANT (11/27/2019 10:20 AM RESEARCH ENGINEER) Pathologist [facility] RHEUMATOID FACTOR <10 <15 IU/ML 11/27/2019 8:02 PM RESEARCH ENGINEER [facility] 11/27/2019 10:2 0 AM RESEARCH ENGINEER Jazmyne Hong NP LABORATORY Final Resul t Performing Organization Address City/[facility]/ZIP Co de Phone Number [facility] [address] [place] [address], [place] [phone] * (ABNORMAL) CBC W/DIFF AUTOMATED (11/27/2019 10:20 AM RESEARCH ENGINEER) Pathologist [facility] WBC 5.7 4.4 - 11.0 x10'3/uL 11/27/2019 1:10 PM [facility] RBC 4.02(L) 4.50 - 5.10 x10'6/uL 11/27/2019 1:10 PM [facility] HGB 12.8 12.3 - 15.3 G/DL 11/27/2019 1:10 PM [facility] HCT 38.9 35.9 - 44.6 % 11/27/2019 1:10 PM [facility] MCV 96.8(H) 80.0 - 96.0 FL 11/27/2019 1:10 PM [facility] MCH 31.8(H) 25.3 - 30.9 PG 11/27/2019 1:10 PM [facility] MCHC 32.9 31.0 - 34.1 G/DL 11/27/2019 1:10 PM [facility] RDW 11.9(L) 12.4 - 15.1 % 11/27/2019 1:10 PM [facility] PLT 155 151 - 353 x10'3/uL 11/27/2019 1:10 PM [facility] MPV 11.7 9.6 - 12.0 FL 11/27/2019 1:10 PM [facility] RBC MORPHOLOGY NORMAL 11/27/2019 1:10 PM [facility] PLT MORPH. NORMAL 11/27/2019 1:10 PM [facility] WBC MORPHOLOGY NORMAL 11/27/2019 1:10 PM [facility] LYMPHOCYTES % 39.3 15.8 - 45.0 % 11/27/2019 1:10 PM [facility] NEUTROPHILS % 48.4 42.1 - 71.9 % 11/27/2019 1:10 PM [facility] MONOCYTES % 9.3 5.7 - 12.5 % 11/27/2019 1:10 PM [facility] EOSINOPHILS 2.1 0.0 - 5.6 % 11/27/2019 1:10 PM [facility] BASOPHILS 0.7 0.0 - 1.3 % 11/27/2019 1:10 PM [facility] ABS. NEUTROPHILS TOTAL 2.75 1.40 - 6.00 x10'3/uL 11/27/2019 1:10 PM [facility] IMMATURE GRANS % 0.2 0.0 - 0.5 % 11/27/2019 1:10 PM [facility] ABS. LYMPHOCYTES 2.23 0.80 - 4.70 x10'3/uL 11/27/2019 1:10 PM [facility] 11/27/2019 10:2 0 AM RESEARCH ENGINEER us Jazmyne Hong PHYSICIAN OPHTHALMOLOGIST LABORATORY Final Resul t [facility] [address] [place] [address], * COMPREHENSIVE METABOLIC PANEL (11/27/2019 10:20 AM RESEARCH ENGINEER) [facility] GLUCOSE 98 70 - 99 MG/DL 11/27/2019 1:34 PM [facility] BUN 8 7 - 18 MG/DL 11/27/2019 1:34 PM [facility] CREATININE S/P/B 0.73 0.55 - 1.02 MG/DL 11/27/2019 1:34 PM [facility] SODIUM S/P/B 139 136 - 145 MMOL/L 11/27/2019 1:34 PM [facility] POTASSIUM S/P/B 4.0 3.5 - 5.1 MMOL/L 11/27/2019 1:34 PM [facility] CHLORIDE S/P/B 104 100 - 108 MMOL/L 11/27/2019 1:34 PM [facility] CO2 23.7 21 - 32 MMOL/L 11/27/2019 1:34 PM [facility] CALCIUM S/P/B 9.3 8.5 - 10.1 MG/DL 11/27/2019 1:34 PM [facility] BILIRUBIN TOTAL S/P/B 0.6 0.2 - 1.2 MG/DL 11/27/2019 1:34 PM [facility] TOTAL PROTEIN S/P/B 7.3 6.4 - 8.2 G/DL 11/27/2019 1:34 PM [facility] ALBUMIN S/P/B 4.2 3.4 - 5.0 G/DL 11/27/2019 1:34 PM [facility] AST 15 15 - 37 U/L 11/27/2019 1:34 PM [facility] ALT 19 14 - 55 U/L 11/27/2019 1:34 PM [facility] ALKALINE PHOSPHATASE S/P/B 67 50 - 136 U/L 11/27/2019 1:34 PM [facility] ANION GAP 11.3 5 - 15 MMOL/L 11/27/2019 1:34 PM [facility] BUN CREATININE RATIO 11.0 6 - 26 11/27/2019 1:34 PM [facility] A/G RATIO 1.4 1.0 - 2.0 RATIO 11/27/2019 1:34 PM [facility] EGFR NON-AFR. AMER. >90 >90 ML/MIN/1.7 3 M2 11/27/2019 1:34 PM [facility] EGFR AFR. AMER. >90 >90 ML/MIN/1.7 3 M2 11/27/2019 1:34 PM [facility] Comment: NOTE: eGFR is not calculated for patients <18 years of age. This is an estimated GFR (CKD EPI) and should not be used for calculating drug doses. 11/27/2019 10:2 0 AM RESEARCH ENGINEER Jazmyne Hong PHYSICIAN OPHTHALMOLOGIST LABORATORY Final Resul t Performing Organization Address [facility] Co de Phone Number [facility] [address] [place] [address], [place] [phone] * (ABNORMAL) TSH W/REFLEX (11/27/2019 10:20 AM RESEARCH ENGINEER) TSH 0.010(L) 0.358 - 3.74 uIU/ML 11/27/2019 1:34 PM RESEARCH ENGINEER [facility] Comment: HIGH DOSES OF BIOTIN MAY INTERFERE WITH THIS TEST RESULT. CORRELATION TO CLINICAL HISTORY AND PRESENTATION RECOMMENDED. 11/27/2019 10:2 0 AM RESEARCH ENGINEER Jazmyne Hong PHYSICIAN OPHTHALMOLOGIST LABORATORY Final Resul t Performing Organization Address [facility] Co de Phone Number [facility] [address] [place] [address], [place] [phone] documented in this encounter Visit Diagnoses Diagnosis Fatigue, unspecified type- Primary Arthralgia, unspecified joint Enlarged lymph nodes Enlargement of lymph nodes Upper respiratory tract infection, unspecified type documented in this encounter Care Teams Product Manager E Commerce Relationship Specialty Start Date End Date Jazmyne Hong NP PCP - General NURSE PRACTITIONER 12/15/18 08/31/21 documented as of this encounter
--- OUTSIDE RECORDS SUMMARY | 2024-10-22 20:56 | XMS_ITS | Encounter Summary ---
Author Organization [facility] Address [address] [place] [address]. [place] [address] [place] [address] Care Team Providers Care Cross Tie Turner Name Role Phone Unavailable Primary Care Provider Unavailabl e Encounter Details Date Type Department Care Team (Late st Contact Info) Description 02/23/2016 Abstract [facility] [address] [place], [place] [id number] Aidee Gray, SEMICONDUCTOR PACKAGES SEALER [address] [place] [address] Social History Tobacco Use Types Packs/Day Years Used Date Smoking Tobacco: Never Assessed Comments Unknown Sex and Gender Information Value Date Recorded Sex Assigned at Female 12/15/2018 11:48 AM CONTROLS TECHNICIAN Legal Sex Female 8:12 PM CDT Gender Identity Female 12/15/2018 11:48 AM CONTROLS TECHNICIAN Sexual Orientation Straight 12/15/2018 11 :21 AM CONTROLS TECHNICIAN documented as of this encounter Plan of Treatment Not on file documented as of this encounter Visit Diagnoses Diagnosis Encounter for screening for infections with predominantly sexual mode of transmission Screening examination for venereal disease documented in this encounter
--- OUTSIDE RECORDS SUMMARY | 2024-10-22 20:56 | XMS_ITS | Encounter Summary ---
Author Organization [facility] Address [address] [place] [address]. [place], [place] [address] [place] [address] Care Team Providers Care Garment Manufacturing Supervisor Name Role Phone Unavailable Primary Care Provider Unavailabl e Encounter Details Date Type Department Care Team (Latest Contact Info) Description 12/12/2016 Abstract [facility] Social History Tobacco Use Types Packs/Day Years Used Date Smoking Tobacco: Never Assessed Comments Unknown Sex and Gender Information Value Date Recorded Sex Assigned at Female 12/15/2018 11:48 AM PROCESS PLANT OPERATOR Legal Sex Female 8:12 PM CDT Gender Identity Female 12/15/2018 11:48 AM PROCESS PLANT OPERATOR Sexual Orientation Straight 12/15/2018 11 :21 AM PROCESS PLANT OPERATOR documented as of this encounter Progress Notes * Generic Conversion MD Elle - 12/12/2016 1:09 PM CST Message Recorded as Task Date: 12/05/2016 12:33 PM, Created By: Mónica Crystal Task Name: Call Patient with results [facility] Regarding Patient: Frances Maguire, [...] PM TASK EDITED lmtcb with phone # [phone]- found in [facility] [facility] Zarina Dougherty 06 Dec 2016 1:24 PM TASK EDITED na on her cj # Zarina Dougherty 06 Dec 2016 1:29 PM TASK EDITED called the parent's number on the hippa form her # has changed. I changed it in PM. lmtcb. Godlie Lemus - 06 Dec 2016 2:15 PM [...] Zarina Dougherty MA; Dec 12 2016 1:09PM PROCESS PLANT OPERATOR (Author) documented in this encounter Plan of Treatment Not on file documented as of this encounter Visit Diagnoses Not on filedocumented in this encounter
--- OUTSIDE RECORDS SUMMARY | 2024-10-22 20:56 | XMS_ITS | Encounter Summary ---
Author Organization [facility] Address [address] [place] [address]. [place] [address] Care Team Providers Care Box Builder Name Role Phone Jazmyne Hong GLASS FRAME FITTER Primary Care Provider Unav ailable Reason for Visit * Reason Comments Eye Problem pt c/o eye infection , wears contacts too long, dust in air irritating eyes Encounter Details Date Type Department Care Team (Late st Contact Info) Description 08/28/2019 8:00 AM CDT Office Visit [facility] Family & Internal Medicine [address] [address] Jazmyne Hong NP Eye Problem [...] Sex Assigned at Female 12/15/2018 11:48 AM PMO MANAGER Legal Sex Female 8:12 PM CDT Gender Identity Female 12/15/2018 11:48 AM PMO MANAGER Sexual Orientation Straight 12/15/2018 11 :21 AM PMO MANAGER documented as of this encounter Last [...] blurry eyesight. Where can I learn more? [employer] https://www.healthychildren.org/Guamanian/health-issues/conditions/eyes/Pages/[place] Eye-Conjunctivitis.aspx NHS Choices https://www.nhs.uk/conditions/conjunctivitis/ Last Reviewed Date [...] right for you. Copyright Copyright ?? 2019 [employer], Inc. and its affiliates [...] diagnosed with some autoimmune disease by her ASP DEVELOPER recently and is supposed to have labs [...] file Gets together: Not on file Attends moravian service: Not on file Active member of [...] conjunctivitis documented in this encounter Care Teams Box Builder Relationship Specialty Start Date End Date Jazmyne Hong NP PCP - General NURSE PRACTITIONER 12/15/18 08/31/21 documented as of this encounter
--- OUTSIDE RECORDS SUMMARY | 2024-10-22 20:56 | XMS_ITS | Encounter Summary ---
Author Organization [facility] Address [address] [place] [address]. [place], [place] [address] [place] [address] Care Team Providers Care Baker Apprentice Name Role Phone Chantelle Hong PUBLISHING SYSTEMS ANALYST Primary Care Provider Unav ailable Reason for Visit * Reason Onset Date Comments Question 01/26/2020 Encounter Details Date Type Department Care Team (Late st Contact Info) Description 01/26/2020 Telephone [facility] Family & Internal Medicine [address] [address] Chantelle Hong, PUBLISHING SYSTEMS ANALYST Question Social History Tobacco Use Types Packs/Day [...] Sex Assigned at Female 12/15/2018 11:48 AM LEATHER BELT SHAPER Legal Sex Female 8:12 PM CDT Gender Identity Female 12/15/2018 11:48 AM LEATHER BELT SHAPER Sexual Orientation Straight 12/15/2018 11 :21 AM LEATHER BELT SHAPER Occupation Industry Job Start Date Job End [...] Please call to help with her concerns. [phone] documented in this encounter Plan of Treatment Not on file documented as of this encounter Visit Diagnoses Not on filedocumented in this encounter Care Teams Baker Apprentice Relationship Specialty Start Date End Date Chantelle Hong NP PCP - General NURSE PRACTITIONER 12/15/18 08/31/21 documented as of this encounter
--- OUTSIDE RECORDS SUMMARY | 2024-10-22 20:56 | XMS_ITS | Encounter Summary ---
Author Organization [facility] Address [address] [place] [address]. [place] [id number] Care Team Providers Care Bad Work Gatherer Name Role Phone Jazmyne Hong PRINTED CIRCUIT BOARDS CONTACT PRINTER Primary Care Provider Unav ailable Reason for Visit * Reason Comments Feet discoloration on bot brandon of both feet Encounter Details Date Type Department Care Team (Late st Contact Info) Description 12/15/2018 11:20 AM HOUSE DETECTIVE Office Visit [facility] Family & Internal Medicine [address] [address] Jazmyne Hong NP Feet (discoloration [...] Sex Assigned at Female 12/15/2018 11:48 AM HOUSE DETECTIVE Legal Sex Female 8:12 PM CDT Gender Identity Female 12/15/2018 11:48 AM HOUSE DETECTIVE Sexual Orientation Straight 12/15/2018 11 :21 AM HOUSE DETECTIVE documented as of this encounter Last Filed Vital Signs Vital Sign Reading Time Taken Comments Blood Pressure 128/72 12/15/2018 11:16 AM HOUSE DETECTIVE Pulse 85 12/15/2018 11:16 AM HOUSE DETECTIVE Temperature 36.4 ??C (97.5 ??F) 12/15/2018 11:[address] Respiratory Rate 16 12/15/2018 11:16 AM HOUSE DETECTIVE Oxygen Saturation 97% 12/15/2018 11:16 AM HOUSE DETECTIVE Inhaled Oxygen Concentration - - Weight 70.6 kg (155 lb 9.6 oz) 12/15/2018 11:16 AM HOUSE DETECTIVE Height 167.6 cm (5' 6 ) 12/15/2018 11:16 AM HOUSE DETECTIVE Body Mass Index 25.11 12/15/2018 11:16 AM HOUSE DETECTIVE documented in this encounter Patient Instructions * Patient Instructions* Jazmyne Hong, PRINTED CIRCUIT BOARDS CONTACT PRINTER - 12/15/2018 11:20 AM HOUSE DETECTIVE Patient Education Patient Education Athlete's Foot Discharge [...] the sores. Where can I learn more? [employer] https://www.aad.org/public/diseases/miruyskbmg-yzto-tpemiinq/fvlwynj-k-ajfy-how- to-prevent [employer] http://www.apma.org/Learn/FootHealth.cfm?FufiEivghl=897 Centers for Disease Control and Prevention http://www.cdc.gov/nczved/divisions/dfbmd/diseases/dermatophytes/ [...] right for you. Copyright Copyright ?? 2018 [employer], Inc. and its affiliates and/or licensors. All rights reserved. E DETECTIVE documented in this encounter Progress Notes * [...] minutes. JAZMYNE HONG NP 12/15/2018 11:49 AM E DETECTIVE documented in this encounter Plan of Treatment Not on file documented as of this encounter Visit Diagnoses Diagnosis Tinea pedis of both feet- Primary documented in this encounter Care Teams Bad Work Gatherer Relationship Specialty Start Date End Date Jazmyne Hong NP PCP - General NURSE PRACTITIONER 12/15/18 08/31/21 documented as of this encounter
--- OUTSIDE RECORDS SUMMARY | 2024-10-22 20:56 | XMS_ITS | Encounter Summary ---
Author Organization [facility] Address [address] [place] [address]. [place], [place] [address] [place] [address] Care Team Providers Care Medical Imaging Technician Name Role Phone Unavailable Primary Care Provider Unavailabl e Encounter Details Date Type Department Care Team (Late st Contact Info) Description 07/31/2013 Abstract [facility] [address] [place] [address] Steffen Calloway MD Social History Tobacco Use Types Packs/Day Years Used Date Smoking Tobacco: Never Assessed Comments Unknown Sex and Gender Information Value Date Recorded Sex Assigned at Female 12/15/2018 11:48 AM FIREWALL SECURITY ENGINEER Legal Sex Female 8:12 PM CDT Gender Identity Female 12/15/2018 11:48 AM FIREWALL SECURITY ENGINEER Sexual Orientation Straight 12/15/2018 11 :21 AM FIREWALL SECURITY ENGINEER documented as of this encounter Plan of Treatment Not on file documented as of this encounter Visit Diagnoses Diagnosis Pain in joint, forearm documented in this encounter
--- OUTSIDE RECORDS SUMMARY | 2024-10-22 20:56 | XMS_ITS | Encounter Summary ---
Author Organization [facility] Address [address] [place] [address]. [place], [place] [address] [place] [address] Care Team Providers Care Farm Equipment Technician Name Role Phone Unavailable Primary Care Provider Unavailabl e Encounter Details Date Type Department Care Team (Late st Contact Info) Description 07/09/[address] [facility] Family & Internal Medicine [facility] [address] [place] [address] Mónica Rudolph MD Social History Tobacco Use Types Packs/Day Years Used Date Smoking Tobacco: Never Assessed Comments Unknown Sex and Gender Information Value Date Recorded Sex Assigned at Female 12/15/2018 11:48 AM DIRECTOR PRODUCT SAFETY Legal Sex Female 8:12 PM CDT Gender Identity Female 12/15/2018 11:48 AM DIRECTOR PRODUCT SAFETY Sexual Orientation Straight 12/15/2018 11 :21 AM DIRECTOR PRODUCT SAFETY documented as of this encounter Last Filed [...] reed Verified Results XR PELVIS 1-2 VIEW [id number] 03:32PM Mónica Rudolph Test Name Result Flag Reference XR PELVIS 1-2 VIEW (Report) JAMIR BOWMAN ADMIT/SERVICE DATE: 07/09/17 ACCT: [id number] DISCHARGE DATE: : 1975 SEX: F ORD SITE: [facility] PT TYPE: REG CLI ORDERING MD: MÓNICA RUDOLPH MD STUDY DATE REPORT # ORDER # EXT ORDER ID 07/09/17 [id number] PROC CODE: PLV1-2V PROCEDURE DESCRIPTION: XR PELVIS [...] (Report) JAMIR BOWMAN ADMIT/SERVICE DATE: 07/09/17 ACCT: [id number] DISCHARGE DATE: : 1975 SEX: F ORD SITE: [facility] PT TYPE: REG CLI ORDERING MD: MÓNICA RUDOLPH MD STUDY DATE REPORT # ORDER # EXT ORDER ID 07/09/17 [id number] PROC CODE: LSPN2-3V PROCEDURE DESCRIPTION: XR LUMBAR [...] PM Signatures Electronically signed by : Chelsea Whittakre MA; Jul 12 2017 12:48PM DIRECTOR PRODUCT SAFETY (Author) * Mónica Rudolph MD - 07/09/2017 [...] TABLET BY MOUTH TWICE A DAY; Therapy: 34Chj0878 to Recorded 3. Aileen 0.35 MG Oral Tablet; TAKE 1 TABLET BY MOUTH EVERY DAY; Therapy: 90Rvv1855 to Recorded 4. Mirena (52 MG) 20 MCG/24HR Intrauterine Intrauterine Device; USE DIRECTED; Therapy: 09Jul2017 to Recorded 5. Sertraline HCl - 50 MG Oral Tablet; TAKE 1 TABLET DAILY; Therapy: 77Eti5642 to (Evaluate:97Rut0461) Requested for: 94Mcr9936; Last Rx:[id number] Ordered Allergies 1. Penicillins Vitals Recorded: 09Jul2017 [...] pain; BIANCA = N; Verified Transmission to [id number]; Last Updated By: Penny Eden; 07/09/2017 2:35:39 PM 2. Physical Therapy Referral Outpatient Acute on chornic low back and SI pain Status: Need Information - Financial Authorization Requested for: [id number] Ordered; For: Acute low back pain; Ordered By: Mónica Rudolph Performed: Due: [id number] RTC in 2-4 weeks if no improvement XR PELVIS 1-2 VIEW; Status:Resulted - Requires Verification; Done: 04Nov2023 12:00AM Due:08Aug2017;Ordered; For:Acute low back pain; Ordered By:Mónica Rudolph; XR L-SPINE 2-3 VIEW ( Routine ); Status:Resulted - Requires Verification; Done: 04Nov2023 12:00AM Due:08Aug2017;Ordered; For:Acute low back pain; Ordered By:Mónica Rudolph; Follow-up visit in 2 weeks Outpatient Follow-up Status: Hold For - Scheduling Requested for: [id number] Ordered; For: Acute low back pain; Ordered By: Mónica Rudolph Performed: Due: [id number] Signatures Electronically signed by : Mónica Rudolph M.D.; Jul 10 2017 9:17AM DIRECTOR PRODUCT SAFETY (Author) documented in this encounter Plan of [...] GRACIE,JAMIR ? ADMIT/SERVICE DATE: 07/09/17 ?? ACCT: [id number] ?DISCHARGE DATE: ?? : 1975 ??SEX: F ?ORD SITE: [facility] ?? PT TYPE: REG CLI ? ORDERING MD: MÓNICA RUDOLPH MD ? STUDY DATE ? REPORT # ?ORDER # ? EXT ORDER ID ?? 07/09/17 ? [id number] ? [id number] ?[id number] ? PROC CODE: ? PLV1-2V ? PROCEDURE [...] - 08/28/2018 JAMIR BOWMAN ADMIT/SERVICE DATE:07/09/17 ACCT: [id number] DISCHARGE DATE: : 1975 SEX: F ORD SITE: [facility] PT TYPE: REG CLI ORDERING MD: ELVER RUDOLPH MD STUDY DATE REPORT # ORDER # EXT ORDER ID 07/09/17 [id number] PROC CODE: PLV1-2V PROCEDURE DESCRIPTION: XR PELVIS [...] BOWMANCY ? ADMIT/SERVICE DATE: 07/09/17 ?? ACCT: [id number] ?DISCHARGE DATE: ?? : 1975 ??SEX: F ?ORD SITE: [facility] ?? PT TYPE: REG CLI ? ORDERING MD: MÓNICA RUDOLPH MD ? STUDY DATE ? REPORT # ?ORDER # ? EXT ORDER ID ?? 07/09/17 ? [id number] ? [id number] ?[id number] ? PROC CODE: ? LSPN2-3V ? PROCEDURE [...] CONSIDER MRI. ? ELECTRONICALLY SIGNED BY TRAE SAHU MD ON 07/09/2017 3:32 PM ? Procedure Note Sai Almeida MD - 08/27/2018 JAMIR BOWMAN ADMIT/SERVICE DATE:07/09/17 ACCT: [id number] DISCHARGE DATE: : 1975 SEX: F ORD SITE: [facility] PT TYPE: REG CLI ORDERING MD: ELVER RUDOLPH MD STUDY DATE REPORT # ORDER # EXT ORDER ID 07/09/17 [id number] PROC CODE: LSPN2-3V PROCEDURE DESCRIPTION: XR LUMBAR [...]
--- OUTSIDE RECORDS SUMMARY | 2024-10-22 20:56 | XMS_ITS | Encounter Summary ---
Author Organization [facility] Address [address] [place] [address]. [place], [place] [address] [place] [address] Care Team Providers Care Cooler Servicer Name Role Phone Chantelle Hong WEIGH MACHINE OPERATOR Primary Care Provider Unav ailable [...] Sex Assigned at Female 12/15/2018 11:48 AM BRANCH MANAGER Legal Sex Female 8:12 PM CDT Gender Identity Female 12/15/2018 11:48 AM BRANCH MANAGER Sexual Orientation Straight 12/15/2018 11 :21 AM BRANCH MANAGER Occupation Industry Job Start Date Job [...] documented as of this encounter Care Teams Cooler Servicer Relationship Specialty Start Date End Date Chantelle Hong NP PCP - General NURSE PRACTITIONER 12/15/18 08/31/21 documented as of this encounter
--- OUTSIDE RECORDS SUMMARY | 2024-10-22 20:57 | XMS_ITS | Encounter Summary ---
Author Organization [facility] Address [address] [place] [address]. [place], [place] [address] [place] [address] Care Team Providers Care Family Law Attorney Name Role Phone Unavailable Primary Care Provider Unavailabl e Encounter Details Date Type Department Care Team (Late st Contact Info) Description 07/06/2003 Abstract [facility] [address] [facility] [employer] [employer] [place] [address] , Generic Conversion, Social History Tobacco Use Types Packs/Day Years Used Date Smoking Tobacco: Never Assessed Comments Unknown Sex and Gender Information Value Date Recorded Sex Assigned at Female 12/15/2018 11:48 AM INCLUSION TEACHER Legal Sex Female 8:12 PM CDT Gender Identity Female 12/15/2018 11:48 AM INCLUSION TEACHER Sexual Orientation Straight 12/15/2018 11 :21 AM INCLUSION TEACHER documented as of this encounter Plan of Treatment Not on file documented as of this encounter Visit Diagnoses Not on filedocumented in this encounter
--- OUTSIDE RECORDS SUMMARY | 2024-10-22 20:57 | XMS_ITS | Encounter Summary ---
Author Organization [facility] Address [address] [place] [address]. [place], [place] [address] [place] [address] Care Team Providers Care Poultry Hatchery Man Name Role Phone Unavailable Primary Care Provider Unavailabl e Encounter Details Date Type Department Care Team (Late st Contact Info) Description 01/02/2002 Abstract [facility] [address] [place] [address] , Generic Conversion, Social History Tobacco Use Types Packs/Day Years Used Date Smoking Tobacco: Never Assessed Comments Unknown Sex and Gender Information Value Date Recorded Sex Assigned at Female 12/15/2018 11:48 AM DINING ROOM CAPTAIN Legal Sex Female 8:12 PM CDT Gender Identity Female 12/15/2018 11:48 AM DINING ROOM CAPTAIN Sexual Orientation Straight 12/15/2018 11 :21 AM DINING ROOM CAPTAIN documented as of this encounter Plan of Treatment Not on file documented as of this encounter Visit Diagnoses Not on filedocumented in this encounter
--- OUTSIDE RECORDS SUMMARY | 2024-10-22 20:57 | XMS_ITS | Encounter Summary ---
Author Organization [facility] Address [address] [place] [address]. [place], [place] [address] [place] [address] Care Team Providers Care Handle Finisher Name Role Phone Unavailable Primary Care Provider Unavailabl e Encounter Details Date Type Department Care Team (Late st Contact Info) Description 06/22/2003 Abstract [facility] [address] [place] [address] , Generic Conversion, Social History Tobacco Use Types Packs/Day Years Used Date Smoking Tobacco: Never Assessed Comments Unknown Sex and Gender Information Value Date Recorded Sex Assigned at Female 12/15/2018 11:48 AM SATURATOR Legal Sex Female 8:12 PM CDT Gender Identity Female 12/15/2018 11:48 AM SATURATOR Sexual Orientation Straight 12/15/2018 11 :21 AM SATURATOR documented as of this encounter Plan of Treatment Not on file documented as of this encounter Visit Diagnoses Not on filedocumented in this encounter
--- OUTSIDE RECORDS SUMMARY | 2024-10-22 20:57 | XMS_ITS | Encounter Summary ---
Author Organization [facility] Address [address] [place] [address]. [place], [place] [address] [place] [address] Care Team Providers Care Senior Java Data Architect Name Role Phone Unavailable Primary Care Provider Unavailabl e Encounter Details Date Type Department Care Team (Late st Contact Info) Description 12/20/1996 Abstract [facility] [address] [place] [address] , Generic Conversion, Social History Tobacco Use Types Packs/Day Years Used Date Smoking Tobacco: Never Assessed Comments Unknown Sex and Gender Information Value Date Recorded Sex Assigned at Female 12/15/2018 11:48 AM DIABETES NURSE Legal Sex Female 8:12 PM CDT Gender Identity Female 12/15/2018 11:48 AM DIABETES NURSE Sexual Orientation Straight 12/15/2018 11 :21 AM DIABETES NURSE documented as of this encounter Plan of Treatment Not on file documented as of this encounter Visit Diagnoses Not on filedocumented in this encounter
--- OUTSIDE RECORDS SUMMARY | 2024-10-22 20:57 | XMS_ITS | Encounter Summary ---
Author Organization [facility] Address [address] [place] [address]. [place], [place] [address] [place] [address] Care Team Providers Care Melter Caster Name Role Phone Unavailable Primary Care Provider Unavailabl e Encounter Details Date Type Department Care Team (Latest Contact Info) Description 11/07/2012 Abstract [facility] Social History Tobacco Use Types Packs/Day Years Used Date Smoking Tobacco: Never Assessed Comments Unknown Sex and Gender Information Value Date Recorded Sex Assigned at Female 12/15/2018 11:48 AM OUTER DIAMETER GRINDER Legal Sex Female 8:12 PM CDT Gender Identity Female 12/15/2018 11:48 AM OUTER DIAMETER GRINDER Sexual Orientation Straight 12/15/2018 11 :21 AM OUTER DIAMETER GRINDER documented as of this encounter Progress Notes * Meg Richardson MD - 11/07/2012 8:50 AM CST Message Message: received request for Montelukast, AHSAN 12-12 with Verna. Sent one month with 2 refills to [facility] in [place]. Plan 1. Montelukast Sodium 10 MG Oral Tablet; TAKE 1 TABLET DAILY; Therapy: 07Nov2012 to (Evaluate:05Feb2013); Last Rx:07Nov2012 Signatures Electronically signed by : Marli Duke L.P.N.; Nov 07 2012 8:53AM (Author) R DIAMETER GRINDER documented in this encounter Plan of Treatment Not on file documented as of this encounter Visit Diagnoses Not on filedocumented in this encounter
--- OUTSIDE RECORDS SUMMARY | 2024-10-22 20:57 | XMS_ITS | Encounter Summary ---
Author Organization [facility] Address [address] [place] [address]. [place], [place] [address] [place] [address] Care Team Providers Care Fun House Attendant Name Role Phone Unavailable Primary Care Provider Unavailabl e Encounter Details Date Type Department Care Team (Late st Contact Info) Description 10/24/1998 Abstract [facility] [address] [place] [address] , Generic Conversion, Social History Tobacco Use Types Packs/Day Years Used Date Smoking Tobacco: Never Assessed Comments Unknown Sex and Gender Information Value Date Recorded Sex Assigned at Female 12/15/2018 11:48 AM COOK SPECIALTY FOREIGN FOOD Legal Sex Female 8:12 PM CDT Gender Identity Female 12/15/2018 11:48 AM COOK SPECIALTY FOREIGN FOOD Sexual Orientation Straight 12/15/2018 11 :21 AM COOK SPECIALTY FOREIGN FOOD documented as of this encounter Plan of Treatment Not on file documented as of this encounter Visit Diagnoses Not on filedocumented in this encounter
--- OUTSIDE RECORDS SUMMARY | 2024-10-22 20:57 | XMS_ITS | Encounter Summary ---
Author Organization [facility] Address [address] [place] [address]. [place], [place] [address] [place] [address] Care Team Providers Care Tool Chaser Name Role Phone Unavailable Primary Care Provider Unavailabl e Encounter Details Date Type Department Care Team (Late st Contact Info) Description 04/05/2008 Abstract [facility] [address] [place] [address] , Generic Conversion, Social History Tobacco Use Types Packs/Day Years Used Date Smoking Tobacco: Never Assessed Comments Unknown Sex and Gender Information Value Date Recorded Sex Assigned at Female 12/15/2018 11:48 AM WEBLOGIC ADMINISTRATOR Legal Sex Female 8:12 PM CDT Gender Identity Female 12/15/2018 11:48 AM WEBLOGIC ADMINISTRATOR Sexual Orientation Straight 12/15/2018 11 :21 AM WEBLOGIC ADMINISTRATOR documented as of this encounter Plan of Treatment Not on file documented as of this encounter Visit Diagnoses Not on filedocumented in this encounter
--- OUTSIDE RECORDS SUMMARY | 2024-10-22 20:57 | XMS_ITS | Encounter Summary ---
Author Organization [facility] Address [address] [place] [address]. [place] [address] [place] [address] Care Team Providers Care Data Communications Analyst Name Role Phone Unavailable Primary Care Provider Unavailabl e Encounter Details Date Type Department Care Team (Late st Contact Info) Description 04/21/2010 Abstract [facility] [address] [place] [address] Tash Smith MD [address] [facility] [place] [address] Social History Tobacco Use Types Packs/Day Years Used Date Smoking Tobacco: Never Assessed Comments Unknown Sex and Gender Information Value Date Recorded Sex Assigned at Female 12/15/2018 11:48 AM TOUCH UP PAINTER HAND Legal Sex Female 8:12 PM CDT Gender Identity Female 12/15/2018 11:48 AM TOUCH UP PAINTER HAND Sexual Orientation Straight 12/15/2018 11 :21 AM TOUCH UP PAINTER HAND documented as of this encounter Plan of Treatment Not on file documented as of this encounter Visit Diagnoses Not on filedocumented in this encounter
--- OUTSIDE RECORDS SUMMARY | 2024-10-22 20:57 | XMS_ITS | Encounter Summary ---
Author Organization [facility] Address [address] [place] [address]. [place] [id number] [place] [address] Care Team Providers Care Orthopedic Assistant Name Role Phone Unavailable Primary Care Provider Unavailabl e Encounter Details Date Type Department Care Team (Latest Contact Info) Description 02/09/2013 Abstract [facility] Meg Richardson MD Social History Tobacco Use Types Packs/Day Years Used Date Smoking Tobacco: Never Assessed Comments Unknown Sex and Gender Information Value Date Recorded Sex Assigned at Female 12/15/2018 11:48 AM CERAMIC TILE INSTALLER Legal Sex Female 8:12 PM CDT Gender Identity Female 12/15/2018 11:48 AM CERAMIC TILE INSTALLER Sexual Orientation Straight 12/15/2018 11 :21 AM CERAMIC TILE INSTALLER documented as of this encounter Progress Notes [...] Current Meds 1. Acidophilus Oral Capsule; Therapy: 54Zop1355 to Recorded; For: Health Maintenance (V70.0); Dispense: [...] 1 TABLET BY MOUTH EVERY DAY; Therapy: 10Zfm3744 to Recorded; Dispense: 28 Days ; #:28 [...] Hansen NP; Feb 09 2013 8:56AM (Author) MIC TILE INSTALLER documented in this encounter Plan of Treatment Not on file documented as of this encounter Visit Diagnoses Not on filedocumented in this encounter
--- OUTSIDE RECORDS SUMMARY | 2024-10-22 20:57 | XMS_ITS | Encounter Summary ---
Author Organization [facility] Address [address] [place] [address]. [place] [address] [place] [address] Care Team Providers Care Sew Out Operator Name Role Phone Unavailable Primary Care Provider Unavailabl e Encounter Details Date Type Department Care Team (Late st Contact Info) Description 05/12/2013 Abstract [facility] [address] [place], [place] [id number] Aidee Gray, FIRMWARE ARCHITECT [address] [place] [address] Social History Tobacco Use Types Packs/Day Years Used Date Smoking Tobacco: Never Assessed Comments Unknown Sex and Gender Information Value Date Recorded Sex Assigned at Female 12/15/2018 11:48 AM SALON PROFESSIONAL Legal Sex Female 8:12 PM CDT Gender Identity Female 12/15/2018 11:48 AM SALON PROFESSIONAL Sexual Orientation Straight 12/15/2018 11 :21 AM SALON PROFESSIONAL documented as of this encounter Plan of Treatment Not on file documented as of this encounter Visit Diagnoses Diagnosis Screening for malignant neoplasm of cervix Screening for malignant neoplasm of the cervix documented in this encounter
--- OUTSIDE RECORDS SUMMARY | 2024-10-22 20:57 | XMS_ITS | Encounter Summary ---
Author Organization [facility] Address [address] [place] [address]. [place] [address] [place] [address] Care Team Providers Care Putty Worker Name Role Phone Unavailable Primary Care Provider Unavailabl e Encounter Details Date Type Department Care Team (Late st Contact Info) Description 02/09/2010 Abstract [facility] [address] [place] [address] Nayeli Quesada MD [address] [place] [address] Social History Tobacco Use Types Packs/Day Years Used Date Smoking Tobacco: Never Assessed Comments Unknown Sex and Gender Information Value Date Recorded Sex Assigned at Female 12/15/2018 11:48 AM ASSOCIATE VETERINARIAN Legal Sex Female 8:12 PM CDT Gender Identity Female 12/15/2018 11:48 AM ASSOCIATE VETERINARIAN Sexual Orientation Straight 12/15/2018 11 :21 AM ASSOCIATE VETERINARIAN documented as of this encounter Plan of Treatment Not on file documented as of this encounter Visit Diagnoses Not on filedocumented in this encounter
--- OUTSIDE RECORDS SUMMARY | 2024-10-22 20:57 | XMS_ITS | Encounter Summary ---
Author Organization [facility] Address [address] [place] [address]. [place], [place] [address] [place] [address] Care Team Providers Care Asset Recovery Specialist Name Role Phone Unavailable Primary Care Provider Unavailabl e Encounter Details Date Type Department Care Team (Latest Contact Info) Description 02/02/2013 Abstract [facility] Meg Richardson MD Social History Tobacco Use Types Packs/Day Years Used Date Smoking Tobacco: Never Assessed Comments Unknown Sex and Gender Information Value Date Recorded Sex Assigned at Female 12/15/2018 11:48 AM CHARGEBACK ANALYST Legal Sex Female 8:12 PM CDT Gender Identity Female 12/15/2018 11:48 AM CHARGEBACK ANALYST Sexual Orientation Straight 12/15/2018 11 :21 AM CHARGEBACK ANALYST documented as of this encounter Last Filed Vital Signs Vital Sign Reading Time Taken Comments Blood Pressure 114/60 02/02/2013 3:29 PM CDT Pulse 76 02/02/2013 3:29 PM CDT Temperature - - Respiratory Rate - - Oxygen Saturation - - Inhaled Oxygen Concentration - - Weight 81.6 kg (180 lb) 02/02/2013 3:29 PM CDT Height - - Body Mass Index 29.05 10/20/2012 10:30 AM CHARGEBACK ANALYST documented in this encounter Progress Notes * [...] Current Meds 1. Acidophilus Oral Capsule; Therapy: [id number] to Recorded; For: Health Maintenance (V70.0); Dispense: 0 Days ; #: Sufficient Capsule; Refill: 0; Record; Last Updated By: Marli Duke 2. Septra TABS; Therapy: (Recorded:02Feb2013) to Recorded; Dispense: 0 Days ; #: Sufficient TABS; Refill: 0; Record; Last Updated By: Marli Duke 3. Lisa 28 3-0.03 MG Oral Tablet; TAKE 1 TABLET BY MOUTH EVERY DAY; Therapy: 29Qzv1797 to Recorded; Dispense: 28 Days ; #:28 TABS; Refill: 0; Record; Last Updated By: Marli Duke Allergies 1. Penicillins Vitals Vital Signs [...] Hansen NP; Feb 02 2013 4:01PM (Author) GEBACK ANALYST documented in this encounter Plan of Treatment Not on file documented as of this encounter Visit Diagnoses Not on filedocumented in this encounter
--- OUTSIDE RECORDS SUMMARY | 2024-10-22 20:57 | XMS_ITS | Encounter Summary ---
Author Organization [facility] Address [address] [place] [address]. [place] [id number] [place] [address] Care Team Providers Care Supervisor Wire Rope Fabrication Name Role Phone Unavailable Primary Care Provider Unavailabl e Encounter Details Date Type Department Care Team (Latest Contact Info) Description 02/10/2013 Abstract [facility] Social History Tobacco Use Types Packs/Day Years Used Date Smoking Tobacco: Never Assessed Comments Unknown Sex and Gender Information Value Date Recorded Sex Assigned at Female 12/15/2018 11:48 AM MID LEVEL NET DEVELOPER Legal Sex Female 8:12 PM CDT Gender Identity Female 12/15/2018 11:48 AM MID LEVEL NET DEVELOPER Sexual Orientation Straight 12/15/2018 11 :21 AM MID LEVEL NET DEVELOPER documented as of this encounter Plan of Treatment Not on file documented as of this encounter Visit Diagnoses Not on filedocumented in this encounter
--- OUTSIDE RECORDS SUMMARY | 2024-10-22 20:57 | XMS_ITS | Encounter Summary ---
Author Organization [facility] Address [address] [place] [address]. [place], [place] [address] [place] [address] Care Team Providers Care Dimethylaniline Sulfator Operator Name Role Phone Unavailable Primary Care Provider Unavailabl e Encounter Details Date Type Department Care Team (Late st Contact Info) Description 04/17/2005 Abstract [facility] [address] [place] [address] Steffen Calloway MD Social History Tobacco Use Types Packs/Day Years Used Date Smoking Tobacco: Never Assessed Comments Unknown Sex and Gender Information Value Date Recorded Sex Assigned at Female 12/15/2018 11:48 AM INVENTORY MANAGEMENT SPECIALIST Legal Sex Female 8:12 PM CDT Gender Identity Female 12/15/2018 11:48 AM INVENTORY MANAGEMENT SPECIALIST Sexual Orientation Straight 12/15/2018 11 :21 AM INVENTORY MANAGEMENT SPECIALIST documented as of this encounter Plan of Treatment Not on file documented as of this encounter Visit Diagnoses Not on filedocumented in this encounter
--- OUTSIDE RECORDS SUMMARY | 2024-10-22 20:57 | XMS_ITS | Encounter Summary ---
Author Organization [facility] Address [address] [place] [address]. [place], [place] [address] [place] [address] Care Team Providers Care Respiratory Support Technician Name Role Phone Unavailable Primary Care Provider Unavailabl e Encounter Details Date Type Department Care Team (Late st Contact Info) Description 08/08/1999 Abstract [facility] [address] [place] [address] , Generic Conversion, Social History Tobacco Use Types Packs/Day Years Used Date Smoking Tobacco: Never Assessed Comments Unknown Sex and Gender Information Value Date Recorded Sex Assigned at Female 12/15/2018 11:48 AM GRADUATE RECRUITER Legal Sex Female 8:12 PM CDT Gender Identity Female 12/15/2018 11:48 AM GRADUATE RECRUITER Sexual Orientation Straight 12/15/2018 11 :21 AM GRADUATE RECRUITER documented as of this encounter Plan of Treatment Not on file documented as of this encounter Visit Diagnoses Not on filedocumented in this encounter
--- OUTSIDE RECORDS SUMMARY | 2024-10-22 20:57 | XMS_ITS | Encounter Summary ---
Author Organization [facility] Address [address] [place] [address]. [place], [place] [address] [place] [address] Care Team Providers Care Record Press Supervisor Name Role Phone Unavailable Primary Care Provider Unavailabl e Encounter Details Date Type Department Care Team (Late st Contact Info) Description 05/05/1996 Abstract [facility] [address] [place] [address] , Generic Conversion, Social History Tobacco Use Types Packs/Day Years Used Date Smoking Tobacco: Never Assessed Comments Unknown Sex and Gender Information Value Date Recorded Sex Assigned at Female 12/15/2018 11:48 AM FREELANCE GRAPHIC DESIGNER Legal Sex Female 8:12 PM CDT Gender Identity Female 12/15/2018 11:48 AM FREELANCE GRAPHIC DESIGNER Sexual Orientation Straight 12/15/2018 11 :21 AM FREELANCE GRAPHIC DESIGNER documented as of this encounter Plan of Treatment Not on file documented as of this encounter Visit Diagnoses Not on filedocumented in this encounter
--- OUTSIDE RECORDS SUMMARY | 2024-10-22 20:57 | XMS_ITS | Encounter Summary ---
Author Organization [facility] Address [address] [place] [address]. [place], [place] [address] [place] [address] Care Team Providers Care Corporate Responsibility Officer Name Role Phone Unavailable Primary Care Provider Unavailabl e Encounter Details Date Type Department Care Team (Late st Contact Info) Description 11/17/2007 Abstract [facility] [address] [place] [address] , Generic Conversion, Social History Tobacco Use Types Packs/Day Years Used Date Smoking Tobacco: Never Assessed Comments Unknown Sex and Gender Information Value Date Recorded Sex Assigned at Female 12/15/2018 11:48 AM FRUIT PRESERVER Legal Sex Female 8:12 PM CDT Gender Identity Female 12/15/2018 11:48 AM FRUIT PRESERVER Sexual Orientation Straight 12/15/2018 11 :21 AM FRUIT PRESERVER documented as of this encounter Plan of Treatment Not on file documented as of this encounter Visit Diagnoses Not on filedocumented in this encounter
--- OUTSIDE RECORDS SUMMARY | 2024-10-22 20:57 | XMS_ITS | Encounter Summary ---
Author Organization [facility] Address [address] [place] [address]. [place] [address] [place] [address] Care Team Providers Care Account Officer Name Role Phone Unavailable Primary Care Provider Unavailabl e Encounter Details Date Type Department Care Team (Late st Contact Info) Description 04/05/2010 Abstract [facility] [address] [place] [address] Tash Smith MD [address] [facility] [place] [address] Social History Tobacco Use Types Packs/Day Years Used Date Smoking Tobacco: Never Assessed Comments Unknown Sex and Gender Information Value Date Recorded Sex Assigned at Female 12/15/2018 11:48 AM OCCUPATIONAL HEALTH AND SAFETY ADVISER Legal Sex Female 8:12 PM CDT Gender Identity Female 12/15/2018 11:48 AM OCCUPATIONAL HEALTH AND SAFETY ADVISER Sexual Orientation Straight 12/15/2018 11 :21 AM OCCUPATIONAL HEALTH AND SAFETY ADVISER documented as of this encounter Plan of Treatment Not on file documented as of this encounter Visit Diagnoses Not on filedocumented in this encounter
--- OUTSIDE RECORDS SUMMARY | 2024-10-22 20:57 | XMS_ITS | Encounter Summary ---
Author Organization [facility] Address [address] [place] [address]. [place] [address] [place] [address] Care Team Providers Care Shake Out Worker Name Role Phone Unavailable Primary Care Provider Unavailabl e Encounter Details Date Type Department Care Team (Latest Contact Info) Description 01/03/2013 Abstract [facility] Bryon Pérez MD [address] [place] [facility] [address] [place] [address] Social History Tobacco Use Types Packs/Day Years Used Date Smoking Tobacco: Never Assessed Comments Unknown Sex and Gender Information Value Date Recorded Sex Assigned at Female 12/15/2018 11:48 AM DEVELOPMENT SYSTEM EFFICIENCY MANAGER Legal Sex Female 8:12 PM CDT Gender Identity Female 12/15/2018 11:48 AM DEVELOPMENT SYSTEM EFFICIENCY MANAGER Sexual Orientation Straight 12/15/2018 11 :21 AM DEVELOPMENT SYSTEM EFFICIENCY MANAGER documented as of this encounter Last Filed Vital Signs Vital Sign Reading Time Taken Comments Blood Pressure 124/82 01/03/2013 1:43 PM DEVELOPMENT SYSTEM EFFICIENCY MANAGER Pulse 73 01/03/2013 1:43 PM DEVELOPMENT SYSTEM EFFICIENCY MANAGER Temperature - - Respiratory Rate - - Oxygen Saturation - - Inhaled Oxygen Concentration - - Weight 80.3 kg (177 lb) 01/03/2013 1:43 PM DEVELOPMENT SYSTEM EFFICIENCY MANAGER Height - - Body Mass Index 28.57 10/20/2012 10:30 AM DEVELOPMENT SYSTEM EFFICIENCY MANAGER documented in this encounter Progress Notes * Bryon Pérez MD - 01/03/2013 1:15 PM CST Reason For Visit Acute Visit Chief Complaint 1. Eye Pain pt presents with c/o right eye pain, redness, itching....onset this morning....pt's son was dx'd with pink eye Active Problems 1. Tinea Corporis 110.5 Current Meds 1. Acidophilus Oral Capsule; Therapy: [id number] to Recorded; For: Health Maintenance (V70.0); Dispense: 0 Days ; #: Sufficient Capsule; Refill: 0; Record; Last Updated By: Marli Duke 2. Lisa 28 3-0.03 MG Oral Tablet; TAKE 1 TABLET BY MOUTH EVERY DAY; Therapy: [id number] to Recorded; Dispense: 28 Days ; #:28 TABS; Refill: 0; Record; Last Updated By: Marli Duke Allergies 1. Penicillins Vitals Signs [Data Includes: Current Encounter] 03Jan2013 01:43PM Temperature: 97.3 F Heart Rate: 73 Respiration: 16 Systolic: 124 Diastolic: 82 O2 Saturation: 98 BMI Calculated: 28.45 BSA Calculated: 1.90 Weight: 177 lb LOPMENT SYSTEM EFFICIENCY MANAGER documented in this encounter Plan of Treatment Not on file documented as of this encounter Visit Diagnoses Not on filedocumented in this encounter
--- OUTSIDE RECORDS SUMMARY | 2024-10-22 20:57 | XMS_ITS | Encounter Summary ---
Author Organization [facility] Address [address] [place] [address]. [place], [place] [address] [place] [address] Care Team Providers Care Car Repairman Name Role Phone Unavailable Primary Care Provider Unavailabl e Encounter Details Date Type Department Care Team (Late st Contact Info) Description 04/16/1998 Abstract [facility] [address] [place] [address] , Generic Conversion, Social History Tobacco Use Types Packs/Day Years Used Date Smoking Tobacco: Never Assessed Comments Unknown Sex and Gender Information Value Date Recorded Sex Assigned at Female 12/15/2018 11:48 AM CONCIERGE RECEPTIONIST Legal Sex Female 8:12 PM CDT Gender Identity Female 12/15/2018 11:48 AM CONCIERGE RECEPTIONIST Sexual Orientation Straight 12/15/2018 11 :21 AM CONCIERGE RECEPTIONIST documented as of this encounter Plan of Treatment Not on file documented as of this encounter Visit Diagnoses Not on filedocumented in this encounter
--- OUTSIDE RECORDS SUMMARY | 2024-10-22 20:57 | XMS_ITS | Encounter Summary ---
Author Organization [facility] Address [address] [place] [address]. [place], [place] [address] [place] [address] Care Team Providers Care Book Binder Name Role Phone Unavailable Primary Care Provider Unavailabl e Encounter Details Date Type Department Care Team (Late st Contact Info) Description 04/06/2002 Abstract [facility] [address] [place] [address] , Generic Conversion, Social History Tobacco Use Types Packs/Day Years Used Date Smoking Tobacco: Never Assessed Comments Unknown Sex and Gender Information Value Date Recorded Sex Assigned at Female 12/15/2018 11:48 AM FUEL QUALITY TECH Legal Sex Female 8:12 PM CDT Gender Identity Female 12/15/2018 11:48 AM FUEL QUALITY TECH Sexual Orientation Straight 12/15/2018 11 :21 AM FUEL QUALITY TECH documented as of this encounter Plan of Treatment Not on file documented as of this encounter Visit Diagnoses Not on filedocumented in this encounter
--- OUTSIDE RECORDS SUMMARY | 2024-10-22 20:57 | XMS_ITS | Encounter Summary ---
Author Organization [facility] Address [address] [place] [address]. [place] [address] [place] [address] Care Team Providers Care Filbert Grower Name Role Phone Unavailable Primary Care Provider Unavailabl e Encounter Details Date Type Department Care Team (Late st Contact Info) Description 04/29/2012 Abstract [facility] [address] [place], [place] [id number] Sin Olvera MD [address] [phone] Social History Tobacco Use Types Packs/Day Years Used Date Smoking Tobacco: Never Assessed Comments Unknown Sex and Gender Information Value Date Recorded Sex Assigned at Female 12/15/2018 11:48 AM LOADING DOCK HELPER Legal Sex Female 8:12 PM CDT Gender Identity Female 12/15/2018 11:48 AM LOADING DOCK HELPER Sexual Orientation Straight 12/15/2018 11 :21 AM LOADING DOCK HELPER documented as of this encounter Plan of Treatment Not on file documented as of this encounter Visit Diagnoses Diagnosis Pain in soft tissues of limb Pain in limb documented in this encounter
--- OUTSIDE RECORDS SUMMARY | 2024-10-22 20:57 | XMS_ITS | Encounter Summary ---
Author Organization [facility] Address [address] [place] [address]. [place] [address] [place] [address] Care Team Providers Care Cloth Grader Supervisor Name Role Phone Unavailable Primary Care Provider Unavailabl e Encounter Details Date Type Department Care Team (Late st Contact Info) Description 05/21/2011 Abstract [facility] Emergency Room [address] [place], [place] [id number] Sin Olvera MD [address] [place] [address] [phone] Social History Tobacco Use Types Packs/Day Years Used Date Smoking Tobacco: Never Assessed Comments Unknown Sex and Gender Information Value Date Recorded Sex Assigned at Female 12/15/2018 11:48 AM RELATIONS DIRECTOR Legal Sex Female 8:12 PM CDT Gender Identity Female 12/15/2018 11:48 AM RELATIONS DIRECTOR Sexual Orientation Straight 12/15/2018 11 :21 AM RELATIONS DIRECTOR documented as of this encounter Plan of Treatment Not on file documented as of this encounter Visit Diagnoses Diagnosis Conjunctivitis Conjunctivitis, unspecified documented in this encounter
--- OUTSIDE RECORDS SUMMARY | 2024-10-22 20:57 | XMS_ITS | Encounter Summary ---
Author Organization [facility] Address [address] [place] [address]. [place], [place] [address] [place] [address] Care Team Providers Care Fire Fighter [employer] Name Role Phone Unavailable Primary Care Provider Unavailabl e Encounter Details Date Type Department Care Team (Late st Contact Info) Description 01/15/2002 Abstract [facility] [address] [facility] [place] [address] , Generic Conversion, Social History Tobacco Use Types Packs/Day Years Used Date Smoking Tobacco: Never Assessed Comments Unknown Sex and Gender Information Value Date Recorded Sex Assigned at Female 12/15/2018 11:48 AM AUTOMATION SALES MANAGER Legal Sex Female 8:12 PM CDT Gender Identity Female 12/15/2018 11:48 AM AUTOMATION SALES MANAGER Sexual Orientation Straight 12/15/2018 11 :21 AM AUTOMATION SALES MANAGER documented as of this encounter Plan of Treatment Not on file documented as of this encounter Visit Diagnoses Not on filedocumented in this encounter
--- OUTSIDE RECORDS SUMMARY | 2024-10-22 20:57 | XMS_ITS | Encounter Summary ---
Author Organization [facility] Address [address] [place] [address]. [place], [place] [address] [place] [address] Care Team Providers Care Airline Reservation Agent Name Role Phone Unavailable Primary Care Provider Unavailabl e Encounter Details Date Type Department Care Team (Late st Contact Info) Description 10/01/2011 Abstract [facility] [address] [place] [address] Staci Pelletier MD Social History Tobacco Use Types Packs/Day Years Used Date Smoking Tobacco: Never Assessed Comments Unknown Sex and Gender Information Value Date Recorded Sex Assigned at Female 12/15/2018 11:48 AM MAIL READER Legal Sex Female 8:12 PM CDT Gender Identity Female 12/15/2018 11:48 AM MAIL READER Sexual Orientation Straight 12/15/2018 11 :21 AM MAIL READER documented as of this encounter Plan of Treatment Not on file documented as of this encounter Visit Diagnoses Diagnosis Leukorrhea Leukorrhea, not specified as infective documented in this encounter
--- OUTSIDE RECORDS SUMMARY | 2024-10-22 20:57 | XMS_ITS | Encounter Summary ---
Author Organization [facility] Address [address] [place] [address]. [place], [place] [address] [place] [address] Care Team Providers Care Bid Clerk Name Role Phone Unavailable Primary Care Provider Unavailabl e Encounter Details Date Type Department Care Team (Late st Contact Info) Description 03/07/2012 Abstract [facility] [address] [place] [address] Social History Tobacco Use Types Packs/Day Years Used Date Smoking Tobacco: Never Assessed Comments Unknown Sex and Gender Information Value Date Recorded Sex Assigned at Female 12/15/2018 11:48 AM SEE WHEELER Legal Sex Female 8:12 PM CDT Gender Identity Female 12/15/2018 11:48 AM SEE WHEELER Sexual Orientation Straight 12/15/2018 11 :21 AM SEE WHEELER documented as of this encounter Plan of Treatment Not on file documented as of this encounter Visit Diagnoses Diagnosis Screening for malignant neoplasm of cervix Screening for malignant neoplasm of the cervix documented in this encounter
--- OUTSIDE RECORDS SUMMARY | 2024-10-22 20:57 | XMS_ITS | Encounter Summary ---
Author Organization [facility] Address [address] [place] [address]. [place], [place] [address] [place] [address] Care Team Providers Care Medical Scientific Liaison Name Role Phone Unavailable Primary Care Provider Unavailabl e Encounter Details Date Type Department Care Team (Late st Contact Info) Description 11/05/2000 Abstract [facility] [address] [place] [address] , Generic Conversion, Social History Tobacco Use Types Packs/Day Years Used Date Smoking Tobacco: Never Assessed Comments Unknown Sex and Gender Information Value Date Recorded Sex Assigned at Female 12/15/2018 11:48 AM CALCIMINER Legal Sex Female 8:12 PM CDT Gender Identity Female 12/15/2018 11:48 AM CALCIMINER Sexual Orientation Straight 12/15/2018 11 :21 AM CALCIMINER documented as of this encounter Plan of Treatment Not on file documented as of this encounter Visit Diagnoses Not on filedocumented in this encounter
--- OUTSIDE RECORDS SUMMARY | 2024-10-22 20:57 | XMS_ITS | Encounter Summary ---
Author Organization [facility] Address [address] [place] [address]. [place] [address] [place] [address] Care Team Providers Care Laboratory Animal Caretaker Name Role Phone Unavailable Primary Care Provider Unavailabl e Encounter Details Date Type Department Care Team (Late st Contact Info) Description 02/13/2012 Abstract [facility] Emergency Room [address] [place] [address] Sin Olvera MD [address] [phone] Social History Tobacco Use Types Packs/Day Years Used Date Smoking Tobacco: Never Assessed Comments Unknown Sex and Gender Information Value Date Recorded Sex Assigned at Female 12/15/2018 11:48 AM CLUSTER BORE OPERATOR Legal Sex Female 8:12 PM CDT Gender Identity Female 12/15/2018 11:48 AM CLUSTER BORE OPERATOR Sexual Orientation Straight 12/15/2018 11 :21 AM CLUSTER BORE OPERATOR documented as of this encounter Plan of Treatment Not on file documented as of this encounter Visit Diagnoses Diagnosis Disorder of teeth and supporting structures Unspecified disorder of the teeth and supporting structures documented in this encounter
--- OUTSIDE RECORDS SUMMARY | 2024-10-22 20:57 | XMS_ITS | Encounter Summary ---
Author Organization [facility] Address [address] [place] [address]. [place] [id number] [place] [address] Care Team Providers Care Primer Assembler Name Role Phone Unavailable Primary Care Provider Unavailabl e Encounter Details Date Type Department Care Team (Latest Contact Info) Description 02/05/2013 Abstract [facility] Social History Tobacco Use Types Packs/Day Years Used Date Smoking Tobacco: Never Assessed Comments Unknown Sex and Gender Information Value Date Recorded Sex Assigned at Female 12/15/2018 11:48 AM FIELD ASSESSOR Legal Sex Female 8:12 PM CDT Gender Identity Female 12/15/2018 11:48 AM FIELD ASSESSOR Sexual Orientation Straight 12/15/2018 11 :21 AM FIELD ASSESSOR documented as of this encounter Plan of Treatment Not on file documented as of this encounter Visit Diagnoses Not on filedocumented in this encounter
--- OUTSIDE RECORDS SUMMARY | 2024-10-22 20:57 | XMS_ITS | Encounter Summary ---
Author Organization [facility] Address [address] [place] [address]. [place] [address] [place] [address] Care Team Providers Care Head Cook Name Role Phone Unavailable Primary Care Provider Unavailabl e Encounter Details Date Type Department Care Team (Late st Contact Info) Description 03/17/2004 Abstract [facility] [address] [place] [address] Shasha Ge MD [address] [place] [address] Social History Tobacco Use Types Packs/Day Years Used Date Smoking Tobacco: Never Assessed Comments Unknown Sex and Gender Information Value Date Recorded Sex Assigned at Female 12/15/2018 11:48 AM JEWEL GRINDER Legal Sex Female 8:12 PM CDT Gender Identity Female 12/15/2018 11:48 AM JEWEL GRINDER Sexual Orientation Straight 12/15/2018 11 :21 AM JEWEL GRINDER documented as of this encounter Plan of Treatment Not on file documented as of this encounter Visit Diagnoses Not on filedocumented in this encounter
--- OUTSIDE RECORDS SUMMARY | 2024-10-22 20:57 | XMS_ITS | Encounter Summary ---
Author Organization [facility] Address [address] [place] [address]. [place], [place] [address] [place] [address] Care Team Providers Care Band Singer Name Role Phone Unavailable Primary Care Provider Unavailabl e Encounter Details Date Type Department Care Team (Latest Contact Info) Description 10/20/2012 Abstract [facility] Meg Richardson MD Social History Tobacco Use Types Packs/Day Years Used Date Smoking Tobacco: Never Assessed Comments Unknown Sex and Gender Information Value Date Recorded Sex Assigned at Female 12/15/2018 11:48 AM APARTMENT LEASING CONSULTANT Legal Sex Female 8:12 PM CDT Gender Identity Female 12/15/2018 11:48 AM APARTMENT LEASING CONSULTANT Sexual Orientation Straight 12/15/2018 11 :21 AM APARTMENT LEASING CONSULTANT documented as of this encounter Last Filed Vital Signs Vital Sign Reading Time Taken Comments Blood Pressure 96/60 10/20/2012 10:30 AM APARTMENT LEASING CONSULTANT Pulse 76 10/20/2012 10:30 AM APARTMENT LEASING CONSULTANT Temperature - - Respiratory Rate - - Oxygen Saturation - - Inhaled Oxygen Concentration - - Weight 78.9 kg (174 lb) 10/20/2012 10:30 AM APARTMENT LEASING CONSULTANT Height 167.6 cm (5' 6 ) 10/20/2012 10:30 AM APARTMENT LEASING CONSULTANT Body Mass Index 28.08 10/20/2012 10:30 AM APARTMENT LEASING CONSULTANT documented in this encounter Progress Notes * [...] Current Meds 1. Acidophilus Oral Capsule; Therapy: [id number] to Recorded; For: Health Maintenance (V70.0); Dispense: 0 Days ; #: Sufficient Capsule; Refill: 0; Record; Last Updated By: Marli Duke 2. Lisa 28 3-0.03 MG Oral Tablet; TAKE 1 TABLET BY MOUTH EVERY DAY; Therapy: [id number] to Recorded; Dispense: 28 Days ; #:28 TABS; Refill: 0; Record; Last Updated By: Marli Duke Allergies 1. Penicillins Vitals Vital Signs [Data Includes: Current Encounter] [id number] 10:30AM Temperature 99 F Heart Rate 76 [...] LAYER TO AFFECTED AREA(S) TWICE DAILY; Therapy: [id number] to (Evaluate:12Nov2012) Requested for: [id number]; Last Rx:[id number]; Edited Ordered; For: Tinea Corporis (110.5); Rx By: Verna Lara; Dispense: 23 Days ; #:45 GM; Refill: 0;Verified Transmission to [id number] Discussion/Summary Discussion Summary Free Text: Rx Ketoconazole cream as directed Follow up prn Signatures Electronically signed by : Verna Lara NP; Oct 20 2012 1:28PM (Author) TMENT LEASING CONSULTANT documented in this encounter Plan of Treatment Not on file documented as of this encounter Visit Diagnoses Not on filedocumented in this encounter
--- OUTSIDE RECORDS SUMMARY | 2024-10-22 20:57 | XMS_ITS | Encounter Summary ---
Author Organization [facility] Address [address] [place] [address]. [place], [place] [address] [place] [address] Care Team Providers Care Palm And Back Forger Name Role Phone Unavailable Primary Care Provider Unavailabl e Encounter Details Date Type Department Care Team (Late st Contact Info) Description 12/26/2000 Abstract [facility] CON[facility] [address] [place] [address] , Generic Conversion, Social History Tobacco Use Types Packs/Day Years Used Date Smoking Tobacco: Never Assessed Comments Unknown Sex and Gender Information Value Date Recorded Sex Assigned at Female 12/15/2018 11:48 AM HOUSEKEEPING COORDINATOR Legal Sex Female 8:12 PM CDT Gender Identity Female 12/15/2018 11:48 AM HOUSEKEEPING COORDINATOR Sexual Orientation Straight 12/15/2018 11 :21 AM HOUSEKEEPING COORDINATOR documented as of this encounter Plan of Treatment Not on file documented as of this encounter Visit Diagnoses Not on filedocumented in this encounter
--- OUTSIDE RECORDS SUMMARY | 2024-10-22 20:57 | XMS_ITS | Encounter Summary ---
Author Organization [facility] Address [address] [place] [address]. [place] [address] [place] [address] Care Team Providers Care Flight Attendant/Inflight Manager Name Role Phone Unavailable Primary Care Provider Unavailabl e Encounter Details Date Type Department Care Team (Late st Contact Info) Description 03/15/2004 Abstract [facility] [address] [place] [address] Shasha Ge MD [address] [place] [address] Social History Tobacco Use Types Packs/Day Years Used Date Smoking Tobacco: Never Assessed Comments Unknown Sex and Gender Information Value Date Recorded Sex Assigned at Female 12/15/2018 11:48 AM DEBURRER STRIP Legal Sex Female 8:12 PM CDT Gender Identity Female 12/15/2018 11:48 AM DEBURRER STRIP Sexual Orientation Straight 12/15/2018 11 :21 AM DEBURRER STRIP documented as of this encounter Plan of Treatment Not on file documented as of this encounter Visit Diagnoses Not on filedocumented in this encounter
--- OUTSIDE RECORDS SUMMARY | 2024-10-22 20:57 | XMS_ITS | Encounter Summary ---
Author Organization [facility] Address [address] [place] [address]. [place], [place] [address] [place] [address] Care Team Providers Care Provider Relations Representative Name Role Phone Unavailable Primary Care Provider Unavailabl e Encounter Details Date Type Department Care Team (Late st Contact Info) Description 01/31/2013 Abstract [facility] Emergency Room [address] [place] [id number] Jaden Lopez MD Social History Tobacco Use Types Packs/Day Years Used Date Smoking Tobacco: Never Assessed Comments Unknown Sex and Gender Information Value Date Recorded Sex Assigned at Female 12/15/2018 11:48 AM MOLDING LINE ASSISTANT Legal Sex Female 8:12 PM CDT Gender Identity Female 12/15/2018 11:48 AM MOLDING LINE ASSISTANT Sexual Orientation Straight 12/15/2018 11 :21 AM MOLDING LINE ASSISTANT documented as of this encounter Plan of Treatment Not on file documented as of this encounter Visit Diagnoses Diagnosis Open wound of finger Open wound of finger(s) , without mention of complication documented in this encounter
--- OUTSIDE RECORDS SUMMARY | 2024-10-22 20:57 | XMS_ITS | Encounter Summary ---
Author Organization [facility] Address [address] [place] [address]. [place], [place] [address] [place] [address] Care Team Providers Care Industrial Education Instructor Name Role Phone Unavailable Primary Care Provider Unavailabl e Encounter Details Date Type Department Care Team (Late st Contact Info) Description 08/23/1999 Abstract [facility] CONVERSION [address] [place] [address] , Generic Conversion, Social History Tobacco Use Types Packs/Day Years Used Date Smoking Tobacco: Never Assessed Comments Unknown Sex and Gender Information Value Date Recorded Sex Assigned at Female 12/15/2018 11:48 AM PROPELLANT ASSEMBLER Legal Sex Female 8:12 PM CDT Gender Identity Female 12/15/2018 11:48 AM PROPELLANT ASSEMBLER Sexual Orientation Straight 12/15/2018 11 :21 AM PROPELLANT ASSEMBLER documented as of this encounter Plan of Treatment Not on file documented as of this encounter Visit Diagnoses Not on filedocumented in this encounter
--- OUTSIDE RECORDS SUMMARY | 2024-10-22 20:57 | XMS_ITS | Encounter Summary ---
Author Organization [facility] Address [address] [place] [address]. [place], [place] [address] [place] [address] Care Team Providers Care Refresh Technician Name Role Phone Unavailable Primary Care Provider Unavailabl e Encounter Details Date Type Department Care Team (Late st Contact Info) Description 07/14/1997 Abstract [facility] CONVERSION [address] [place] [address] , Generic Conversion, Social History Tobacco Use Types Packs/Day Years Used Date Smoking Tobacco: Never Assessed Comments Unknown Sex and Gender Information Value Date Recorded Sex Assigned at Female 12/15/2018 11:48 AM MARKETING OPERATIONS ASSISTANT Legal Sex Female 8:12 PM CDT Gender Identity Female 12/15/2018 11:48 AM MARKETING OPERATIONS ASSISTANT Sexual Orientation Straight 12/15/2018 11 :21 AM MARKETING OPERATIONS ASSISTANT documented as of this encounter Plan of Treatment Not on file documented as of this encounter Visit Diagnoses Not on filedocumented in this encounter
--- OUTSIDE RECORDS SUMMARY | 2024-10-22 21:11 | XMS_ITS | Clinical Summary ---
Author Organization [facility] Address [address] [place] [address] Care Team Providers Care Tariff Counsel Name Role Phone Unavailable Primary Care Provider Unavailabl e Social History Tobacco Use Types Packs/Day Years Used Date Smoking Tobacco: Never Assessed Comments Unknown Sex and Gender Information Value Date Recorded Sex Assigned at Not on file Legal Sex Female 9:21 AM TV TECHNICIAN Gender Identity Not on file Sexual Orientation [...]
--- OUTSIDE RECORDS SUMMARY | 2024-10-22 21:11 | XMS_ITS | Encounter Summary ---
Author Organization [facility] Healthcare Address [address] [place] [address] Care Team Providers Care Data Entry Clerk Name Role Phone Josefa Rodríguez Primary Care Provider [phone] Reason for Visit * Reason Onset Date Comments Appointment 10/29/2023 Encounter Details Date Type Department Care Team (Late st Contact Info) Description 10/29/2023 Telephone [facility] Specialists [facility] [address] [address] [place] [address] [facility] [address], [place] [address] Appointment Social History Tobacco Use Types Packs/Day Years Used Date Smoking Tobacco: Never Assessed Comments Unknown Sex and Gender Information Value Date Recorded Sex Assigned at Not on file Legal Sex Female 7:25 PM MANAGER PAYMENT Gender Identity Not on file Sexual Orientation Not on file documented as of this encounter Miscellaneous Notes * Telephone Encounter - Nichole Crowley - 10/29/2023 5:44 PM CST Received records from PCP referring to Endocrinology for hyperthyroidism.. LMVM making the patient aware to call the office to schedule an appt no identifiers to leave a detailed message. Mailed acannot contact letter scanned records into the chart. GER PAYMENT documented in this encounter Plan of Treatment Not on file documented as of this encounter Visit Diagnoses Not on filedocumented in this encounter Care Teams Data Entry Clerk Relationship Specialty Start Date End Date Josefa Rodrí[place] [address] [place] [phone] PCP - General Physician Relationship Assoc 10/29/23 documented as of this encounter
--- OUTSIDE RECORDS SUMMARY | 2024-10-22 21:11 | XMS_ITS | Encounter Summary ---
Author Organization [facility] Address [address] [place] [address] Care Team Providers Care Antique Furniture Reproducer Name Role Phone Unavailable Primary Care Provider Unavailabl e Encounter Details Date Type Department Care Team (Late st Contact Info) Description 09/05/2020 Lab Requisition [facility] [place] [facility] Public [facility] Community Testing [facility] [address] [place] [address] [place] [address] [place] [address] Social History Tobacco Use Types Packs/Day Years Used Date Smoking Tobacco: Never Assessed Comments Unknown Sex and Gender Information Value Date Recorded Sex Assigned at Not on file Legal Sex Female 9:21 AM SALES AND LEASING AGENT Gender Identity Not on file Sexual Orientation Not on file documented as of this encounter Plan of Treatment Not on file documented as of this encounter Procedures Procedure Name Priority Date/Time Associated Diagnosis Comments SARS-COV-2 PCR [facility] ONLY Routine 09/05/2020 9:36 AM SALES AND LEASING AGENT documented in this encounter Visit Diagnoses Not on filedocumented in this encounter
--- OUTSIDE RECORDS SUMMARY | 2024-10-22 21:11 | XMS_ITS | Encounter Summary ---
Author Organization [facility] Address [address] [place] [address] Care Team Providers Care Doctor Of Pharmacy Name Role Phone Unavailable Primary Care Provider Unavailabl e Encounter Details Date Type Department Care Team (Late st Contact Info) Description 09/05/2020 10:00 AM PHLEBOTOMY SERVICES REPRESENTATIVE Rapid Evaluation [place] [facility] Community Testing [facility] [address] [place] [address] Social History Tobacco Use Types Packs/Day Years Used Date Smoking Tobacco: Never Assessed Comments Unknown Sex and Gender Information Value Date Recorded Sex Assigned at Not on file Legal Sex Female 9:21 AM PHLEBOTOMY SERVICES REPRESENTATIVE Gender Identity Not on file Sexual Orientation Not on file documented as of this encounter Plan of Treatment Not on file documented as of this encounter Visit Diagnoses Not on filedocumented in this encounter
--- OUTSIDE RECORDS SUMMARY | 2024-10-22 21:11 | XMS_ITS | Clinical Summary ---
Author Organization [facility] Address [address] [place] [address] Care Team Providers Care Space Systems Operations Manager Name Role Phone Josefa Rodríguez Primary Care Provider [phone] Allergies Active Allergy Reactions Criticality Noted Date Comments Latex Rash Medium 08/31/2024 Penicillin Unknown 1977 Penicillins Anaphylaxis High 10/20/2012 Can take Amoxicillin Shellfish Vomiting Low 08/27/1982 Medications Lactobacillus acidophilus (Acidophilus) capsule 08/30/2000 Active acyclovir (ZOVIRAX) 400 mg tablet Take 1 tablet (400 mg total) by mouth daily 01/09/2022 Active selenium 100 mcg tablet 08/30/2023 Active sertraline (ZOLOFT) 100 mg tablet Take 1.5 tablets (150 mg total) by mouth daily Active aspirin 325 mg 1 tablet (325 mg total) Active atenoloL (TENORMIN) 25 mg tabletIndication s:Hyperthyroidis m Take 1 tablet (25 mg total) by mouth daily 90 tablet 1 08/31/2024 08/31/20 25 Active methIMAzole (TAPAZOLE) 10 mg tabletIndication s:Hyperthyroidis m Take 1 tablet (10 mg total) by mouth daily 90 tablet 1 08/31/2024 08/31/20 25 Active Active Problems No known active problems Encounters Date Type Department Care Team Description 09/08/2024 1:24 PM AUTO COLLISION REPAIR INSTRUCTOR - 09/08/2024 11:59 PM AUTO COLLISION REPAIR INSTRUCTOR Hospital Encounter [facility] Radiology [address] [place] [address] Hyperthyroidism Discharge Disposition: Discharge to home or self care 08/31/2024 9:25 AM CDT Lab [facility] [address] [place] [address] Hyperthyroidism 08/31/2024 8:00 AM CDT Office Visit [facility] Endocrinology Metabolism and Lipid [address] [facility] [address], [address] [place] [address] Alexandra Antunez MD Thyroid eye disease (Primary Dx); Hyperthyroidism from Last 3 Months Social History Tobacco Use Types Packs/Day Years Used Date Smoking Tobacco: Every Day Cigarettes Tobacco Cessation:Ready to Q uit: Not Asked; Counseling Given: Not Answered AUDIT-C Answer Date Recorded Q1: How often do you have a drink containing alc ohol? 2-4 times a month 08/31/2024 Q2: How many drinks containi ng alcohol do you have on a typical day when you are drinking? 5 or 6 08/31/2024 Frequency of Binge Drinking Not on file 08/05 Comments No Sex and Gender Information Value Date Recorded Sex Assigned at Not on file Legal Sex Female 7:25 PM AUTO COLLISION REPAIR INSTRUCTOR Gender Identity Not on file Sexual Orientation Not on file Obstetrics History Last Filed Vital Signs Vital Sign Reading Time Taken Comments Blood Pressure 141/68 08/31/2024 8:13 AM CDT Pulse 88 08/31/2024 8:13 AM CDT Temperature - - Respiratory Rate - - Oxygen Saturation - - Inhaled Oxygen Concentration - - Weight 62.4 kg (137 lb 9.6 oz) 08/31/2024 8:13 A M CDT Height - - Body Mass Index - - Plan of Treatment Health Maintenance Due Date Last Done Comments Cervical Cancer Screening 1977 Colon Cancer Screening-Colonoscopy 1977 Depression Screening 1977 Hepatitis C Screening 1977 Pneumococcal vaccine <65 (1 of 2 - PCV) 1983 Hepatitis B Screening 1995 Regular Well Visit/Exam 18-64 1995 DTaP/Tdap/Td Vaccine (2 - Td or Tdap) 04/29/2022 04/29/2012, 07/02/2008 Breast Cancer Screening-Mammogram 08/28/2023 08/28/2022, 08/28/2022 Covid-19 Vaccine (2023-2 5 season) 2024 04/06/2021 Influenza Vaccine (#1) 2024 09/04/2021 HPV Vaccines Aged Out No longer eligi ble based on patient's age to complete this topic Procedures Procedure Name Priority Date/Time Associated Diagnosis Comments US THYROID Schedule Routine, Read Routine (OP Routine) 09/08/2024 2:06 PM AUTO COLLISION REPAIR INSTRUCTOR Hyperthyroidism THYROID STIMULATING IMMUNOGLOBULIN Routine 08/31/2024 9:46 AM CDT Hyperthyroidism TSH Routine 08/31/2024 9:46 AM CDT Hyperthyroidism T4, FREE Routine 08/31/2024 9:46 AM CDT Hyperthyroidism T3, FREE Routine 08/31/2024 9:46 AM CDT Hyperthyroidism from Last 3 Months Results * US Thyroid (09/08/2024 2:06 PM AUTO COLLISION REPAIR INSTRUCTOR) Anatomical Region Laterality Modality Head and Neck N/A Ultrasound 09/08/2024 2:12 PM AUTO COLLISION REPAIR INSTRUCTOR Impressions 09/08/2024 2:12 PM AUTO COLLISION REPAIR INSTRUCTOR Enlarged and markedly hypervascular thyroid, in keeping with thyroiditis. No suspicious nodules. Electronically signed by: Alen Franco M.D. Narrative 09/08/2024 2:12 PM AUTO COLLISION REPAIR INSTRUCTOR EXAMINATION: Ultrasound thyroid HISTORY: ??Hyperthyroidism COMPARISON: ??None FINDINGS: ??The thyroid is diffusely enlarged and has a hypoechoic, nodular appearance. ??The right thyroid measures 3.1 x 2.9 x 6.6 cm and the left thyroid measures 3.3 x 2.4 x 6.8 cm. ??A prominent pyramidal lobe is noted. The entire thyroid is markedly hypervascular. No discrete nodules are identified. Mildly prominent but otherwise normal appearing lymph nodes are noted in the left and right neck. Procedure Note Alen Franco MD - 09/08/2024 EXAMINATION: Ultrasound thyroid HISTORY: Hyperthyroidism COMPARISON: None FINDINGS: The thyroid is diffusely enlarged and has a hypoechoic, nodular appearance. The right thyroid measures 3.1 x 2.9 x 6.6 cm and the left thyroid measures 3.3 x 2.4 x 6.8 cm. A prominent pyramidal lobe is noted. The entire thyroid is markedly hypervascular. No discrete nodules are identified. Mildly prominent but otherwise normal appearing lymph nodes are noted in the left and right neck. IMPRESSION: Enlarged and markedly hypervascular thyroid, in keeping with thyroiditis. No suspicious nodules. Electronically signed by: Alen Franco M.D. us Alexandra Antunez MD IMG US PROCEDURES Final Result * (ABNORMAL) Thyroid stimulating immunoglobulin (08/31/2024 9:46 AM CDT) Pathologist [facility] TSIG 4.1(H) <=1.3 [facility] ref Lab Comment: Test Performed by: [place] [address] Mortgage Loan Originator: Sue Zamora Ph.D.; CLIA# [id number] Blood 08/31/2024 9:46 AM CDT 08/31/2024 10:11 AM CDT us Alexandra Antunez MD LAB BLOOD ORDERABLES Final Resul t Performing Organization Address City/[facility] Co de Phone Number MAR [facility] [address] [employer]. Department [place] [address] Elizabeth ref Lab * (ABNORMAL) T3, free (08/31/2024 9:46 AM CDT) Pathologist [facility] Free T3 25.7(H) 2.0 - 4.4 pg/mL Comment:Testing performed by : [facility], [address] [facility], [place]., [address] Blood 08/31/2024 9:46 AM CDT 08/31/2024 12:34 PM CDT us Alexandra Antunez MD LAB BLOOD ORDERABLES Final Resul t [facility] [address] [facility] [place] [address] * (ABNORMAL) TSH (08/31/2024 9:46 AM CDT) Thyroid Stimulating Hormone <0.01(L) 0.30 - 4.20 mcIUnit/mL Blood 08/31/2024 9:46 AM CDT 08/31/2024 10:12 AM CDT Alexandra Antunez MD LAB BLOOD ORDERABLES Final Resul t Performing Organization Address [facility] Co de Phone Number MAR [facility] [address] [facility] [place] [address] * (ABNORMAL) T4, free (08/31/2024 9:46 AM CDT) Free T4 5.54(H) 0.90 - 1.70 ng/dL Blood 08/31/2024 9:46 AM CDT 08/31/2024 10:12 AM CDT Alexandra Antunez MD LAB BLOOD ORDERABLES Final Resul t Performing Organization Address [facility] Co de Phone Number [facility] [address] [facility] [place] [address] from Last [address] [place] [address] [facility] Care Teams Space Systems Operations Manager Relationship Specialty Start Date End Date Josefa Rodrí[place] [address] [facility] [address] [place] [address] PCP - General Physician Film And Video Editor 10/29/23
--- OUTSIDE RECORDS SUMMARY | 2024-10-22 21:11 | XMS_ITS | Encounter Summary ---
Author Organization [facility] Healthcare Address [address] [place] [address] Care Team Providers Care Ruby Software Developer Name Role Phone Josefa Rodríguez Primary Care Provider [phone] Reason for Referral * Diagnostic Imaging (Routine) - Closed Specialty Diagnoses / Procedures Referred By Contac t Referred To Contact Diagnoses Hyperthyroidism Procedures US Thyroid Alexandra Antunez MD [address] [address] Phone: tel: fax: [address] [phone] Referral ID Status Reason Start Date Expiration Date Visits Re quested Visits Authorized [id number] Closed 08/31/2024 09/30/2025 1 1 ANICAL ENGINEERING SPECIALIST Reason for Visit * Diagnostic Imaging (Routine) - Closed Specialty Diagnoses / Procedures Referred By Contac t Referred To Contact Diagnoses Hyperthyroidism Procedures US Thyroid Alexandra Antunez MD [address] [address] Phone: tel: fax: [address] [address] Referral ID Status Reason Start Date Expiration Date Visits Re quested Visits Authorized [id number] Closed 08/31/2024 09/30/2025 1 1 Encounter Details Date Type Department Care Team (Latest Contact Info) Description 09/08/2024 1:24 PM MECHANICAL ENGINEERING SPECIALIST - 09/08/2024 11:59 PM MECHANICAL ENGINEERING SPECIALIST Hospital Encounter [facility] Radiology [address] [place] [address] Hyperthyroidism Discharge Disposition: Discharge to home or self care Social History Tobacco Use Types Packs/Day Years Used Date Smoking Tobacco: Every Day Cigarettes AUDIT-C Answer Date Recorded Q1: How often [...] on file Legal Sex Female 7:25 PM MECHANICAL ENGINEERING SPECIALIST Gender Identity Not on file Sexual Orientation Not on file documented as of this encounter Medications at Time of Discharge acyclovir (ZOVIRAX) 400 mg tablet Take 1 tablet (400 mg total) by mouth daily 01/09/2022 aspirin 325 mg 1 tablet (325 mg total) atenoloL (TENORMIN) 25 mg tabletIndications :Hyperthyroidism Take 1 tablet (25 mg total) by mouth daily 90 tablet 1 08/31/2024 08/31/2025 Lactobacillus acidophilus (Acidophilus) capsule 08/30/2000 methIMAzole (TAPAZOLE) 10 mg tabletIndications :Hyperthyroidism Take 1 tablet (10 mg total) by mouth daily 90 tablet 1 08/31/2024 08/31/2025 selenium 100 mcg tablet 08/30/2023 sertraline (ZOLOFT) 100 mg tablet Take 1.5 tablets (150 mg total) by mouth daily documented as of this encounter Discharge Disposition Disposition Code Departure Means Destination Discharge to home or self care documented in this encounter Plan of Treatment Not on file documented as of this encounter Procedures Procedure Name Priority Date/Time Associated Diagnosis Comments US THYROID Schedule Routine, Read Routine (OP Routine) 09/08/2024 2:06 PM MECHANICAL ENGINEERING SPECIALIST Hyperthyroidism documented in this encounter Results * US Thyroid (09/08/2024 2:06 PM MECHANICAL ENGINEERING SPECIALIST) Anatomical Region Laterality Modality Head and Neck N/A Ultrasound 09/08/2024 2:12 PM MECHANICAL ENGINEERING SPECIALIST Impressions 09/08/2024 2:12 PM MECHANICAL ENGINEERING SPECIALIST Enlarged and markedly hypervascular thyroid, in keeping with thyroiditis. No suspicious nodules. Electronically signed by: Alen Franco M.D. Narrative 09/08/2024 2:12 PM MECHANICAL ENGINEERING SPECIALIST EXAMINATION: Ultrasound thyroid HISTORY: ??Hyperthyroidism COMPARISON: ??None [...] Antunez MD IMG US PROCEDURES Final Result documented in this encounter Visit Diagnoses Diagnosis Hyperthyroidism Thyrotoxicosis without mention of goiter or other cause, without mention of thyrotoxic crisis or storm documented in this encounter Care Teams Ruby Software Developer Relationship Specialty Start Date End Date Josefa Rodrí[place] [address] [address] PCP - General Physician Photographer Finish 10/29/23 documented as of this encounter
--- OUTSIDE RECORDS SUMMARY | 2024-10-22 21:11 | XMS_ITS | Encounter Summary ---
Author Organization [facility] Address [address] [place] [address] Phone Care Team Providers Care University Registrar Name Role Phone Josefa Rodríguez Primary Care Provider [phone] Reason for Referral * Consultation (Routine) - Pending Review Specialty Diagnoses / Procedures Referred By Hussein marrufo Referred To Contact Ophthalmology Diagnoses Thyroid eye disease Alexandra Antunez MD [address] [facility] [address] [address] Phone: tel: fax: Camron Frank MD [address] [address] Phone: tel: fax: Referral ID Status Reason Start Date Expiration Date Visits Requested Visits Authorized [id number] Pending Review Specialty Services Required 4 09/30/2025 1 1 Question Answer Please select the performing region: [facility] (All Locations) [167] To provider: CAMRON FRANK [[id number]] # of visits: 1 * Diagnostic Imaging (Routine) - Closed Specialty Diagnoses / Procedures Referred By Hussein marrufo Referred To Contact Diagnoses Hyperthyroidism Procedures US Thyroid Alexandra Antunez MD [address] [facility] [address] [place] [address] Phone: tel: fax: [address] [address] Referral ID Status Reason Start Date Expiration Date Visits Re quested Visits Authorized [id number] Closed 08/31/2024 09/30/2025 1 1 Reason for Visit * Reason Comments Hyperthyroidism * Consultation (Routine) - Authorized Specialty Diagnoses / Procedures Referred By Contnikhil t Referred To Contact Endocrinology Diagnoses Hyperthyroidism Josefa Rodríguez PA [address] [place] [address] Phone: tel: fax: [facility] (All Locations) Referral ID Status Reason Start Date Expiration Date Visits Requested Visits Authorized [id number] Authorized Specialty Services Required 11/14/2023 12/13/2024 12 12 Encounter Details Date Type Department Care Team (Late st Contact Info) Description 08/31/2024 8:00 AM CDT Office Visit [facility] Endocrinology Metabolism and Lipid [address] [facility] [address], [address] [place] [address] Alexandra Antunez MD [address] [place] [address] Thyroid eye disease (Primary Dx); Hyperthyroidism Social History Tobacco Use Types Packs/Day Years [...] on file Legal Sex Female 7:25 PM IMMIGRATION MANAGER Gender Identity Not on file Sexual Orientation [...] Index - - documented in this encounter Patient Instructions * Patient Instructions* Alexandra Antunez MD - 08/31/2024 8:00 AM CDT Start atenolol 25 mg daily , may take 50 mg daily if heart is still beating fast ( goal heart rate is 60-90 ) Start methimazole 10 mg twice daily with food. Labs in 4 weeks ( sent to [facility]) documented in this encounter Ordered Prescriptions Prescription Sig Dispense Quantity Refills Last Filled Start Date End Date methIMAzole (TAPAZOLE) 10 mg tabletIndications: Hyperthyroidism Take 1 tablet (10 mg total) by mouth daily 90 tablet 1 08/31/2024 08/31/2025 atenoloL (TENORMIN) 25 mg tabletIndications: Hyperthyroidism Take 1 tablet (25 mg total) by mouth daily 90 tablet 1 08/31/2024 08/31/2025 documented in this encounter Progress Notes * Alexandra Antunez MD - 08/31/2024 8:00 AM CDT Images from the original note were not included. Endocrine Patient Visit Chief Complaint: hyperthyroidism HPI: Initial visit on 08/31/2024 Patient is a 48 y.o. with hyperthyroidism Has been hyperthyroid for about 4 years. Never received care due to insurance. She has been having tachycardia. Anxiety, restlessness, bulging eyes, pain behind the eyes and weight loss ( about 40-50 lb) She has been trying to teat naturally with selenium. She reports mulitple family members with either hypo or hyperthyroidism. Current Outpatient Medications Medication acyclovir (ZOVIRAX) 400 mg tablet aspirin 325 mg Lactobacillus acidophilus (Acidophilus) capsule selenium 100 mcg tablet sertraline (ZOLOFT) 100 mg tablet No current facility-administered medications for this visit. Review of Systems Review of systems per HPI and otherwise all other systems are negative. OBJECTIVES Physical exam: BP 141/68 (BP Location: Left arm, Patient Position: Sitting) Pulse 88 Wt 62.4 kg (137 lb 9.6 oz) General Appearance: NAD, well developed Head: No obvious abnormality, Eyes: PERRLA, EOMI, anicteric. + exophthalmos. + lid lag. Neck: Thyroid: Supple, symmetrical, trachea midline Enlarged Lungs: CTA B/L, No WCR Cardiovascular: Tachardia , S1 S2. Abdomen: S, ND, NT, + BS Extremities: No cyanosis or edema, Skin: Color/texture normal, no rashes or striae,lesions or bruising Neurologic: AAOX4. N + tremor. Psychosocial: Normal affect and mood. Allergies Allergen Reactions Penicillins Anaphylaxis Can take Amoxicillin Latex Rash Penicillin Unknown Shellfish Vomiting Social History Tobacco Use Smoking status: Every Day Types: Cigarettes Smokeless tobacco: None Substance and Sexual Activity Drug use: None Sexual activity: None Alcohol Use: Alcohol Misuse (08/31/2024) AUDIT-C Frequency of Alcohol Consumption: 2-4 times a month Average Number of Drinks: 5 or 6 Frequency of Binge Drinking: Not on file Labs: Assessment/Plan: Patient is a 48 y.o. presenting for hyperthyroidism. Hyperthyroidism Thyroid eye disease. Plan: Check TSH, FT4 and Ft3. Start atenolol 25 mg daily , may take 50 mg daily if heart is still beating fast ( goal heart rate is 60-90 ) Start methimazole 10 mg twice daily with food. Labs in 4 weeks Thank you for allowing me to participate in the care of Ms. Maguire. Alexandra Antunez MD Diesel Technician Mechaniccook vegetable Division of Endocrinology, Metabolism and Lipid [facility] documented in this encounter Plan of Treatment Scheduled Orders Name Type Priority Associated Diagnoses Orde r Schedule TSH Lab Routine Hyperthyroidism Expected: 10/01/2024, Expires: T4, free Lab Routine Hyperthyroidism Expected: 10/01/2024, Expires: T3, free Lab Routine Hyperthyroidism Expected: 10/01/2024, Expires: Scheduled Referrals Name Type Priority Associated Diagnoses Order Schedule Ambulatory referral to Ophthalmology Outpatient Referral Routine Thyroid eye disease Expected: 09/14/2024 (Approximate), Expires: 08/31/2025 documented as of this encounter Results * US Thyroid (09/08/2024 2:06 PM IMMIGRATION MANAGER) Anatomical Region Laterality Modality Head and Neck N/A Ultrasound 09/08/2024 2:12 PM IMMIGRATION MANAGER Impressions 09/08/2024 2:12 PM IMMIGRATION MANAGER Enlarged and markedly hypervascular thyroid, in keeping with thyroiditis. No suspicious nodules. Electronically signed by: Alen Franco M.D. Narrative 09/08/2024 2:12 PM IMMIGRATION MANAGER EXAMINATION: Ultrasound thyroid HISTORY: ??Hyperthyroidism COMPARISON: ??None [...] nodules. Electronically signed by: Alen Franco M.D. Alexandra Antunez MD [facility] US PROCEDURES Final Result * (ABNORMAL) T3, free (08/31/2024 9:46 AM CDT) Free T3 25.7(H) 2.0 - 4.4 pg/mL Comment:Testing performed by : [facility], [facility], [place]., [address] Blood 08/31/2024 9:46 AM CDT 08/31/2024 12:34 PM CDT us Alexandra Antunez MD LAB BLOOD ORDERABLES Final Resul t Performing Organization Address [facility] de Phone Number MAR FLORESCH [address] [address] [address] * (ABNORMAL) T4, free (08/31/2024 9:46 AM CDT) Free T4 5.54(H) 0.90 - 1.70 ng/dL Blood 08/31/2024 9:46 AM CDT 08/31/2024 10:12 AM CDT Alexandra Antunez MD LAB BLOOD ORDERABLES Final Resul t Performing Organization Address [facility] de Phone Number [facility] [address] [address] [address] * (ABNORMAL) TSH (08/31/2024 9:46 AM CDT) Thyroid Stimulating Hormone <0.01(L) 0.30 - 4.20 mcIUnit/mL Blood 08/31/2024 9:46 AM CDT 08/31/2024 10:12 AM CDT us Alexandra Antunez MD LAB BLOOD ORDERABLES Final Resul t Performing Organization Address [facility] de Phone Number MAR BJWCH [address] [address] [employer] [address] * (ABNORMAL) Thyroid stimulating immunoglobulin (08/31/2024 9:46 AM CDT) TSIG 4.1(H) <=1.3 [place] ref Lab Comment: Test Performed by: [facility] [address] [place] [address] Hvac Sheet Metal Installer: Sue Zamora Ph.D.; CLIA# [id number] Blood 08/31/2024 9:46 AM CDT 08/31/2024 10:11 AM CDT us Alexandra Antunez MD LAB BLOOD ORDERABLES Final Resul t MAR BJWCH [address] [facility]. 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 aspirin 325 mg 1 tablet (325 mg total) sertraline (ZOLOFT) 100 mg tablet Take 1.5 tablets (150 mg total) by mouth daily selenium 100 mcg tablet 08/30/2023 acyclovir (ZOVIRAX) 400 mg tablet Take 1 tablet (400 mg total) by mouth daily 01/09/2022 Lactobacillus acidophilus (Acidophilus) capsule 08/30/2000 added in this encounter Orders Outpatient Referral Count Last Ordered Date Fir st Ordered Date AMB REFERRAL TO ENDOCRINOLOGY 1 08/31/2024 documented in this encounter Care Teams University Registrar Relationship Specialty Start Date End Date Josefa Rodrí[place] [address] [facility] [address] [place] [address] PCP - General Physician Welding Process Specialist 10/29/23 documented as of this encounter
--- OUTSIDE RECORDS SUMMARY | 2024-10-22 21:11 | XMS_ITS | Referral Summary ---
Author Organization [facility] Address [address] [place] [address] Care Team Providers Care Aircraft Design Engineer Name Role Phone Josefa Rodríguez Primary Care Provider [phone] Encounters Date Type Department Care Team Description 09/08/2024 1:24 PM SECURITY SYSTEMS SPECIALIST - 09/08/2024 11:59 PM SECURITY SYSTEMS SPECIALIST Hospital Encounter [facility] Radiology [address] [place] [address] Hyperthyroidism Discharge Disposition: Discharge to home or self care 08/31/2024 9:25 AM CDT Lab [facility] [address] [place] [address] Hyperthyroidism 08/31/2024 8:00 AM CDT Office Visit [facility] Endocrinology Metabolism and Lipid [facility] Medical Office Building [address], [address] [place] [phone] Alexandra Antunez MD Thyroid eye disease (Primary Dx); Hyperthyroidism from Last 3 Months Allergies Active Allergy Reactions Criticality Noted Date [...] Active Active Problems No known active problems Social History Tobacco Use Types Packs/Day Years [...] on file Legal Sex Female 7:25 PM SECURITY SYSTEMS SPECIALIST Gender Identity Not on file Sexual Orientation Not on file Last Filed Vital Signs [...] Mass Index - - Plan of Treatment Not on file Procedures Procedure Name Priority Date/Time Associated Diagnosis Comments US THYROID Schedule Routine, Read Routine (OP Routine) 09/08/2024 2:06 PM SECURITY SYSTEMS SPECIALIST Hyperthyroidism THYROID STIMULATING IMMUNOGLOBULIN Routine 08/31/2024 9:46 AM CDT Hyperthyroidism TSH Routine 08/31/2024 9:46 AM CDT Hyperthyroidism T4, FREE Routine 08/31/2024 9:46 AM CDT Hyperthyroidism T3, FREE Routine 08/31/2024 9:46 AM CDT Hyperthyroidism from Last 3 Months Results * US Thyroid (09/08/2024 2:06 PM SECURITY SYSTEMS SPECIALIST) Anatomical Region Laterality Modality Head and Neck N/A Ultrasound 09/08/2024 2:12 PM SECURITY SYSTEMS SPECIALIST Impressions 09/08/2024 2:12 PM SECURITY SYSTEMS SPECIALIST Enlarged and markedly hypervascular thyroid, in keeping with thyroiditis. No suspicious nodules. Electronically signed by: Alen Franco M.D. Narrative 09/08/2024 2:12 PM SECURITY SYSTEMS SPECIALIST EXAMINATION: Ultrasound thyroid HISTORY: ??Hyperthyroidism COMPARISON: [...] by: Alen Franco M.D. Alexandra Antunez MD [facility] US PROCEDURES Final Result * (ABNORMAL) Thyroid stimulating immunoglobulin (08/31/2024 9:46 AM CDT) TSIG 4.1(H) <=1.3 [place] ref Lab Comment: Test Performed by: [facility] [address] [place] [address] Project Control Manager: Sue Zamora Ph.D.; CLIA# [id number] Blood 08/31/2024 9:46 AM CDT 08/31/2024 10:11 AM CDT Alexandra Antunez MD LAB BLOOD ORDERABLES Final Resul t Performing Organization Address [facility] Co de Phone Number MAR FLORESCH [address] [place] [employer]. [facility] [facility] [place], [place] [id number] [place] ref Lab * (ABNORMAL) T3, free (08/31/2024 9:46 AM CDT) Free T3 25.7(H) 2.0 - 4.4 pg/mL Comment:Testing performed by : [facility], [facility], [place]., [address] Blood 08/31/2024 9:46 AM CDT 08/31/2024 12:34 PM CDT Alexandra Antunez MD LAB BLOOD ORDERABLES Final Resul t Performing Organization Address [facility] Co de Phone Number MAR BJCH [address] [employer] [facility] [place], [place] [id number] * (ABNORMAL) TSH (08/31/2024 9:46 AM CDT) Thyroid Stimulating Hormone <0.01(L) 0.30 - 4.20 mcIUnit/mL Blood 08/31/2024 9:46 AM CDT 08/31/2024 10:12 AM CDT us Alexandra Antunez MD LAB BLOOD ORDERABLES Final Resul t Performing Organization Address [facility] Co de Phone Number MAR BJWCH [address] [employer] [facility] [place], [place] [id number] * (ABNORMAL) T4, free (08/31/2024 9:46 AM CDT) Free T4 5.54(H) 0.90 - 1.70 ng/dL Blood 08/31/2024 9:46 AM CDT 08/31/2024 10:12 AM CDT us Alexandra Antunez MD LAB BLOOD ORDERABLES Final Resul t MAR BJWCH [address] [facility] Department [place] [address] from Last 3 Months Insurance [facility] Care Teams Aircraft Design Engineer Relationship Specialty Start Date End Date Josefa Rodrí[place] [address] [address] PCP - General Physician Dental Appliance Repairer 10/29/23
--- OUTSIDE RECORDS SUMMARY | 2024-10-22 21:11 | XMS_ITS | Encounter Summary ---
Author Organization [facility] Healthcare Address [address] [place] [address] Care Team Providers Care Food Porter Name Role Phone Josefa Rodríguez Primary Care Provider [phone] Encounter Details Date Type Department Care Team (Late st Contact Info) Description 08/31/2024 9:25 AM CDT Lab [facility] [address] [place] [address] Hyperthyroidism Social History Tobacco Use Types Packs/Day [...] on file Legal Sex Female 7:25 PM VETERINARY MANAGER Gender Identity Not on file Sexual Orientation Not on file documented as of this encounter Plan of Treatment Not on file documented as of this encounter Procedures Procedure Name Priority Date/Time Associated Diagnosis Comments THYROID STIMULATING IMMUNOGLOBULIN Routine 08/31/2024 9:46 AM CDT Hyperthyroidism T3, FREE Routine 08/31/2024 9:46 AM CDT Hyperthyroidism TSH Routine 08/31/2024 9:46 AM CDT Hyperthyroidism T4, FREE Routine 08/31/2024 9:46 AM CDT Hyperthyroidism documented in this encounter Results * (ABNORMAL) Thyroid stimulating immunoglobulin (08/31/2024 9:46 AM CDT) TSIG 4.1(H) <=1.3 [place] ref Lab Comment: Test Performed by: [facility] [address] [facility], [place] [address] Caustic Room Attendant: Sue Zamora Ph.D.; CLIA# [id number] Blood 08/31/2024 9:46 AM CDT 08/31/2024 10:11 AM CDT us Alexandra Antunez MD LAB BLOOD ORDERABLES Final Resul t Performing Organization Address [facility] de Phone Number Unbooked LtdZEB BJWCH [address] [employer] [place], [place] [phone] [place] ref Lab * (ABNORMAL) TSH (08/31/2024 9:46 AM CDT) Pathologist [facility] Thyroid Stimulating Hormone <0.01(L) 0.30 - 4.20 mcIUnit/mL Blood 08/31/2024 9:46 AM CDT 08/31/2024 10:12 AM CDT us Alexandra Antunez MD LAB BLOOD ORDERABLES Final Resul t Performing Organization Address [facility] Co de Phone Number [facility]book[facility] BJWCH [address] [place] [address] * (ABNORMAL) T4, free (08/31/2024 9:46 AM CDT) Free T4 5.54(H) 0.90 - 1.70 ng/dL Blood 08/31/2024 9:46 AM CDT 08/31/2024 10:12 AM CDT us Alexandra Antunez MD LAB BLOOD ORDERABLES Final Resul t Performing Organization Address [facility] Co de Phone Number Unbook[employer] LtdZEB BJWCH [address] [facility] [place] [address] [address] * (ABNORMAL) T3, free (08/31/2024 9:46 AM CDT) Free T3 25.7(H) 2.0 - 4.4 pg/mL Comment:Testing performed by : [facility], [address] [facility], [place]., [address] Blood 08/31/2024 9:46 AM CDT 08/31/2024 12:34 PM CDT us Alexandra Antunez MD LAB BLOOD ORDERABLES Final Resul t [facility] [address] [facility] [place] [address] documented in this encounter Visit Diagnoses Diagnosis Hyperthyroidism Thyrotoxicosis without mention of goiter or other cause, without mention of thyrotoxic crisis or storm documented in this encounter Care Teams Food Porter Relationship Specialty Start Date End Date Josefa Rodrí[place] [address] [facility] [address] [place] [address] PCP - General Physician Hand Worker 10/29/23 documented as of this encounter
== END 2024-10-18 11:51 | disposition home or self-care (01) ==
PROVIDERS: Emergency Provider Nurse Practitioner; PCP Physician Assistant
DX: J06.9 Acute upper respiratory infection, unspecified (principal); Z87.891 Personal history of nicotine dependence; E05.00 Thyrotoxicosis with diffuse goiter without thyrotoxic crisis or storm
CPT/HCPCS: 71046; 87426; 87804; 99213; G0463